=== PATIENT | female | born 1980 | race American Indian/Alaskan Native ===

== ENCOUNTER 2018-08-23 12:16 | Emergency (ER) | payer MEDICAID, OTHER ==
[2018-08-23] MEDS ORDERED: ZOFRAN IV ONE ×3 (12:57→14:17)
[2018-08-23] MEDS ORDERED: BENADRYL IV ONE ×2 (13:30→16:50)
[2018-08-23] MEDS ORDERED: DILAUDID IV ONE ×2 (13:30→16:50)
[2018-08-23] MEDS ORDERED: PHENERGAN PR ONE (13:30)
[2018-08-23] MEDS ORDERED: PROTONIX IV ONE (13:31)
[2018-08-23 13:42] LABS: Albumin 3.8 g/dL (3.9-5); Basophils % (Auto) 0.5 % (0.0-1.8); Calcium 9.7 mg/dL (8.4-10.2); Eosinophils # (Auto) 0.1 K/mm3 (0.0-0.4); Eosinophils % (Auto) 1.2 % (0.0-4.3); Hematocrit 30.4 % (30.3-42.9); Hemoglobin 9.8 gm/dl (10.1-14.3); Lymphocytes # (Auto) 1.6 K/mm3 (1.2-5.4); Lymphocytes % (Auto) 19.9 % (13.4-35.0); Mean Corpuscular HGB Conc 32 % (30-34); Mean Corpuscular Volume 94 fl (79-97); Monocytes # (Auto) 0.6 K/mm3 (0.0-0.8); Monocytes % (Auto) 7.7 % (0.0-7.3); Platelet Count 425 K/mm3 (140-440); Red Blood Count 3.25 M/mm3 (3.65-5.03); Red Cell Distribution Width 17.2 % (13.2-15.2)
--- NOTE | 2018-08-23 14:44 | Emergency Department Report ---
ED N/V/D HPI - General Chief complaint: Nausea/Vomiting/Diarrhea Stated complaint: N/V Time Seen by Provider: 08/23/18 12:53 Source: patient, EMS, old records reviewed Mode of arrival: Stretcher Limitations: No Limitations - History of Present Illness Initial comments: 37-year-old female with a past medical history diabetes, cholecystectomy, gastroparesis, hypertension, end-stage dialysis Monday, , and Monday, anemia, CVA with left-sided deficit presents to the Hospital complaining of gastroparesis. Patient has had persistent nausea, vomiting, and by mouth intolerance today. Since June has had frequent and recurrent admissions for the same. Patient recently admitted and discharged on . She is taking Zofran at home without improvement. Last dialysis was on August 20. She was at dialysis today however, she was sent to the ER for evaluation due to persistent nausea and vomiting. Patient complains of upper abdominal pain and pruritus to back. Bridge Teacher: Dr. Neda Ramos - Related Data Previous Rx's Medication Instructions Recorded Last Taken Type traMADol [Ultram 50 MG tab] 50 mg PO Q6H PRN #20 tablet 07/30/18 Unknown Rx Apixaban [Eliquis] 2.5 mg PO Q12HR #60 tablet 08/04/18 Unknown Rx Aspirin [Aspirin BABY CHEW TAB] 81 mg PO QDAY #30 tab.chew 08/04/18 Unknown Rx AtorvaSTATin [Lipitor] 40 mg PO QHS #30 tablet 08/04/18 Unknown Rx Labetalol [Normodyne TAB] 300 mg PO TID #90 tablet 08/04/18 Unknown Rx Pantoprazole [Protonix TAB] 40 mg PO BID #60 tablet 08/04/18 Unknown Rx amLODIPine [Norvasc] 10 mg PO DAILY #30 tablet 08/04/18 Unknown Rx cloNIDine [Catapres] 0.2 mg PO TID #90 tablet 08/04/18 Unknown Rx hydrALAZINE [Apresoline TAB] 50 mg PO Q8HR #90 tablet 08/04/18 Unknown Rx Ondansetron [Zofran ODT TAB] 4 mg PO Q8HR #20 tab.rapdis 08/07/18 Unknown Rx HYDROcodone/APAP 5-325 [[place] 1 - 2 each PO Q6HR PRN #14 tablet 08/08/18 Unknown Rx 5-325 mg TAB] Promethazine [Phenergan SUPPOS] 25 mg MS Q6HR PRN #10 supp.rect 08/08/18 Unknown Rx Promethazine [Phenergan TAB] 25 mg PO Q6HR PRN #20 tab 08/08/18 Unknown Rx Promethazine [Phenergan] 25 mg MS Q6HR PRN #30 supp.rect 08/23/18 Unknown Rx Allergies Allergy/AdvReac Type Severity Reaction Status Date / Time Fish Containing Products Allergy Rash Verified 07/10/18 17:56 metformin Allergy Hives Verified 10/25/16 01:38 metoclopramide HCl Allergy Hives Verified 10/25/16 01:38 [From Reglan] prochlorperazine Allergy Hives Verified 10/25/16 01:38 [From Compazine] prochlorperazine edisylate Allergy Hives Verified 10/25/16 01:38 [From Compazine] prochlorperazine maleate Allergy Hives Verified 10/25/16 01:38 [From Compazine] shellfish Allergy Swelling Uncoded 07/30/18 12:26 ED Review of Systems ROS: Stated complaint: N/V Other details as noted in HPI Comment: All other systems reviewed and negative ED Past Medical Hx - Past Medical History Hx Hypertension: Yes Hx CVA: Yes (multiple- L sided deficits, 12 CVA) Hx Congestive Heart Failure: No Hx Diabetes: Yes Hx Renal Disease: Yes (ESRD, HD -) Hx Sickle Cell Disease: No Hx Asthma: No Hx COPD: No Hx Dementia: No Hx HIV: No Additional medical history: anemia - Surgical History Hx Pacemaker: Yes (gastric) Hx Cholecystectomy: Yes Additional Surgical History: catheter placement for Hemo),bilayeral eye sugery(cataract), av fistula, gastric pacemaker for gastroparesis - Social History Smoking Status: Never Smoker Substance Use Type: None - Medications Home Medications: Home Medications Medication Instructions Recorded Confirmed Last Taken Type traMADol [Ultram 50 MG tab] 50 mg PO Q6H PRN #20 tablet 07/30/18 08/14/18 Unknown Rx Apixaban [Eliquis] 2.5 mg PO Q12HR #60 tablet 08/04/18 08/14/18 Unknown Rx Aspirin [Aspirin BABY CHEW TAB] 81 mg PO QDAY #30 tab.chew 08/04/18 08/14/18 Unknown Rx AtorvaSTATin [Lipitor] 40 mg PO QHS #30 tablet 08/04/18 08/14/18 Unknown Rx Labetalol [Normodyne TAB] 300 mg PO TID #90 tablet 08/04/18 08/14/18 Unknown Rx Pantoprazole [Protonix TAB] 40 mg PO BID #60 tablet 08/04/18 08/14/18 Unknown Rx amLODIPine [Norvasc] 10 mg PO DAILY #30 tablet 08/04/18 08/14/18 Unknown Rx cloNIDine [Catapres] 0.2 mg PO TID #90 tablet 08/04/18 08/14/18 Unknown Rx hydrALAZINE [Apresoline TAB] 50 mg PO Q8HR #90 tablet 08/04/18 08/14/18 Unknown Rx Ondansetron [Zofran ODT TAB] 4 mg PO Q8HR #20 tab.rapdis 08/07/18 08/14/18 Unknown Rx HYDROcodone/APAP 5-325 [[place] 1 - 2 each PO Q6HR PRN #14 tablet 08/08/18 08/14/18 Unknown Rx 5-325 mg TAB] Promethazine [Phenergan SUPPOS] 25 mg MS Q6HR PRN #10 supp.rect 08/08/18 08/14/18 Unknown Rx Promethazine [Phenergan TAB] 25 mg PO Q6HR PRN #20 tab 08/08/18 08/14/18 Unknown Rx Promethazine [Phenergan] 25 mg MS Q6HR PRN #30 supp.rect 08/23/18 Unknown Rx ED Physical Exam - General Limitations: No Limitations - Other Other exam information: General: No limitations, patient is alert in no acute distress Head exam: Atraumatic, normocephalic Eyes exam: Normal appearance, pupils equal reactive to light, extraocular movements intact ENT: Moist mucous membrane, normal oropharynx Neck exam: Normal inspection, full range of motion, no meningismus nontender Respiratory exam: Clear to auscultation bilateral, no wheezes, rales, crackles Cardiovascular: Normal rate and rhythm, normal heart sounds Abdomen: Soft, nondistended, epigastric and left upper quadrant tenderness. Extremity: Full range of motion normal inspection no deformity Back: Normal Inspection, full range of motion, no tenderness Neurologic: Alert, oriented x3, left-sided paralysis Psychiatric: normal affect, normal mood Skin: Warm, dry, intact ED Course Vital Signs 08/23/18 08/23/18 08/23/18 12:52 14:22 15:10 Temperature 98.4 F Pulse Rate 95 H Respiratory 16 18 18 Rate Blood Pressure 174/118 O2 Sat by Pulse 100 100 Oximetry 08/23/18 08/23/18 15:45 17:04 Temperature Pulse Rate 100 H Respiratory 18 Rate Blood Pressure 185/102 O2 Sat by Pulse Oximetry ED Medical Decision Making - Lab Data Result diagrams: 08/23/18 13:20 08/23/18 13:20 Lab Results 08/23/18 08/23/18 08/23/18 Range/Units 13:20 13:20 13:20 WBC 7.9 (4.5-11.0) K/mm3 RBC 3.25 L (3.65-5.03) M/mm3 Hgb 9.8 L (10.1-14.3) gm/dl Hct 30.4 (30.3-42.9) % MCV 94 (79-97) fl MCH 30 (28-32) pg MCHC 32 (30-34) % RDW 17.2 H (13.2-15.2) % Plt Count 425 (140-440) K/mm3 Lymph % (Auto) 19.9 (13.4-35.0) % [place] % (Auto) 7.7 H (0.0-7.3) % Eos % (Auto) 1.2 (0.0-4.3) % Baso % (Auto) 0.5 (0.0-1.8) % Lymph # 1.6 (1.2-5.4) K/mm3 [place] # 0.6 (0.0-0.8) K/mm3 Eos # 0.1 (0.0-0.4) K/mm3 Baso # 0.0 (0.0-0.1) K/mm3 Seg Neutrophils % 70.7 H (40.0-70.0) % Seg Neutrophils # 5.6 (1.8-7.7) K/mm3 Sodium 140 (137-145) mmol/L Potassium 3.3 L (3.6-5.0) mmol/L Chloride 95.3 L (98-107) mmol/L Carbon Dioxide 29 (22-30) mmol/L Anion Gap 19 mmol/L BUN 34 H (7-17) mg/dL Creatinine 6.1 H (0.7-1.2) mg/dL Estimated GFR 9 ml/min BUN/Creatinine Ratio 6 % Glucose 128 H (65-100) mg/dL Calcium 9.7 (8.4-10.2) mg/dL Total Bilirubin 0.50 (0.1-1.2) mg/dL AST 9 (5-40) units/L ALT 6 L (7-56) units/L Alkaline Phosphatase 91 (35-129) units/L Total Protein 7.5 (6.3-8.2) g/dL Albumin 3.8 L (3.9-5) g/dL Albumin/Globulin Ratio 1.0 % Lipase 13 (13-60) units/L HCG, Qual Negative (Negative) - Radiology Data Radiology results: report reviewed CT ABDOMEN PELVIS WITHOUT CONTRAST: HISTORY: Abdominal pain, nausea and vomiting. COMPARISON: 08/02/18. TECHNIQUE: Helical CT in 1.25mm intervals without IV contrast. Sagittal and coronal reconstructions. FINDINGS: Lung bases: Borderline heart size. The visualized lung bases are adequately aerated. Liver: Normal. Biliary system: Cholecystectomy. Pancreas: Normal. Spleen: Normal. Kidneys/ureters/bladder: Normal. Adrenal glands: Normal. Aorta: Mild scattered calcifications. No aneurysm. Intestines: Within normal limits given oral contrast was administered. No evidence for bowel obstruction. Appendix: Not identified. No inflammatory changes in the right lower quadrant. Pelvic viscera: Normal. Ascites: None. Adenopathy: None. Musculoskeletal: Intact. IMPRESSION: No acute process is identified in the abdomen or pelvis. No significant change since 08/02/18. - Medical Decision Making At the ED treatment patient no longer vomiting. There aren't any signs of volume overload or hyperkalemia to that would require admission for emergent dialysis. Patient has Percocet at home. She will be instructed to continue Zofran and then again will be prescribed. Patient given clonidine prior to discharge for hypertension - Differential Diagnosis gastritis, pancreatitis, gastroparesis Critical Care Time: No Critical care attestation.: If time is entered above; I have spent that time in minutes in the direct care of this critically ill patient, excluding procedure time. ED Disposition Clinical Impression: Diabetic gastroparesis, HTN (hypertension), ESRD on dialysis Disposition: DC-01 TO HOME OR SELFCARE Is pt being admited?: No Does the pt Need Aspirin: No Condition: Stable Instructions: Acute Nausea and Vomiting (ED), Abdominal Pain (ED), End-Stage Kidney Disease (ED) Additional Instructions: Take the medication as prescribed. Continue Zofran as well as Phenergan as needed for nausea and vomiting. Follow up with your doctor. Return if symptoms worsen as indicated by your discharge instructions. Call your dialysis center in the morning to see if they can reschedule your dialysis for tomorrow. Prescriptions: Promethazine [Phenergan] 25 mg MS Q6HR PRN #30 supp.rect PRN Reason: Nausea And Vomiting Referrals: PRIMARY CARE, [Primary Care Provider] - 2-3 Days Time of Disposition: 17:47
[2018-08-23] MEDS ORDERED: NORMODYNE IV ONE ×2 (14:48→17:18)
--- NOTE | 2018-08-23 15:32 | Cat Scan Report ---
CT ABDOMEN PELVIS WITHOUT CONTRAST: HISTORY: Abdominal pain, nausea and vomiting. COMPARISON: 08/02/18. TECHNIQUE: Helical CT in 1.25mm intervals without IV contrast. Sagittal and coronal reconstructions. FINDINGS: Lung bases: Borderline heart size. The visualized lung bases are adequately aerated. Liver: Normal. Biliary system: Cholecystectomy. Pancreas: Normal. Spleen: Normal. Kidneys/ureters/bladder: Normal. Adrenal glands: Normal. Aorta: Mild scattered calcifications. No aneurysm. Intestines: Within normal limits given oral contrast was administered. No evidence for bowel obstruction. Appendix: Not identified. No inflammatory changes in the right lower quadrant. Pelvic viscera: Normal. Ascites: None. Adenopathy: None. Musculoskeletal: Intact. IMPRESSION: No acute process is identified in the abdomen or pelvis. No significant change since 08/02/18.
[2018-08-23] MEDS ORDERED: CATAPRES PO ONE (17:19)
[2018-08-23] MEDS ORDERED: FLUSH HEPARIN IV ONE ×2 (17:32→18:51)
[2018-08-23 18:10] VITALS: BP 176/104
== END 2018-08-23 18:12 | disposition home or self-care (01) ==
LOC: ED 12:16
DX: E11.43 Type 2 diabetes mellitus with diabetic autonomic (poly)neuropathy (principal); K31.84 Gastroparesis; E11.22 Type 2 diabetes mellitus with diabetic chronic kidney disease; I12.0 Hypertensive chronic kidney disease with stage 5 chronic kidney disease or end stage renal disease; N18.6 End stage renal disease; Z99.2 Dependence on renal dialysis
CPT/HCPCS: 36415; 74176; 80053; 83690; 84703; 85025; 96374; 96375; 96376; 99284; C9113; J1170; J1200; J1642; J2405

== ENCOUNTER 2018-08-25 12:53 | Inpatient (IN) | payer MEDICARE ==
[2018-08-25] MEDS ORDERED: APRESOLINE IV ONE (14:55)
[2018-08-25] MEDS ORDERED: TYLENOL ONE (15:34)
[2018-08-25] MEDS ORDERED: TYLENOL PO ONE (15:44)
--- NOTE | 2018-08-25 15:44 | XRay Report ---
FINAL REPORT EXAM: XR CHEST 1V AP HISTORY: htn esrd TECHNIQUE: Frontal portable examination of the chest patient did not take in a deep breath/best image possible/supine/ap G08/25/2018 PRIORS: 08/07/2018 FINDINGS: A right venous catheter remains in place with distal tip near the cavoatrial junction region, project ed over the region of the right atrium. Limited examination due to prominent soft tissue attenuation. The cardiac silhouette size is slightly enlarged without evidence of vascular congestion or pulmonary edema. There is no pulmonary consolidation, pleural effusion, or pneumothorax. The regional skeleton is without acute pathology. IMPRESSION: No acute pulmonary disease in the visualized chest Slight cardiomegaly
[2018-08-25] MEDS ORDERED: PERCOCET 5/325 PO ONE (16:30)
--- NOTE | 2018-08-25 16:34 | Emergency Department Report ---
ED General Adult HPI - General Chief complaint: Extremity Problem,Nontraumatic Stated complaint: HBP Time Seen by Provider: 08/25/18 14:43 Source: EMS (ems notes not available at time of chart dictation), RN notes reviewed, old records reviewed Mode of arrival: Stretcher Limitations: Physical Limitation - History of Present Illness Initial comments: This is a 37-year-old female. Patient has a past medical history of type 2 diabetes, gastroparesis with gastric pacemaker, hypertension, reported stroke 12 with residual left-sided deficits, end-stage renal disease, on hemodialysis. Her financial health counselor is Dr. Ramos. She typically gets dialysis Monday, , Monday. She reports her last dialysis session was this past Monday. She is sent today by her dialysis clinic for evaluation of elevated blood pressure. She is given clonidine. Patient reports compliance with her outpatient medications. In addition, patient was sent to the ER for evaluation of clotted access in her right upper extremity. No bruit or thrill was noted. Patient complains of chronic body pain. She complains of chronic back pain. -: Gradual Location: right, upper extremity Severity scale (0 -10): 8 Consistency: constant Improves with: none Worsens with: none Associated Symptoms: loss of appetite, malaise, other (admits to chronic bilateral lower extremity swelling). denies: confusion, chest pain, cough, diaphoresis, fever/chills, headaches, nausea/vomiting, rash, seizure, shortness of breath, syncope, weakness - Related Data Previous Rx's Medication Instructions Recorded Last Taken Type traMADol [Ultram 50 MG tab] 50 mg PO Q6H PRN #20 tablet 07/30/18 Unknown Rx Apixaban [Eliquis] 2.5 mg PO Q12HR #60 tablet 08/04/18 Unknown Rx Aspirin [Aspirin BABY CHEW TAB] 81 mg PO QDAY #30 tab.chew 08/04/18 Unknown Rx AtorvaSTATin [Lipitor] 40 mg PO QHS #30 tablet 08/04/18 Unknown Rx Labetalol [Normodyne TAB] 300 mg PO TID #90 tablet 08/04/18 Unknown Rx Pantoprazole [Protonix TAB] 40 mg PO BID #60 tablet 08/04/18 Unknown Rx amLODIPine [Norvasc] 10 mg PO DAILY #30 tablet 08/04/18 Unknown Rx cloNIDine [Catapres] 0.2 mg PO TID #90 tablet 08/04/18 Unknown Rx hydrALAZINE [Apresoline TAB] 50 mg PO Q8HR #90 tablet 08/04/18 Unknown Rx Ondansetron [Zofran ODT TAB] 4 mg PO Q8HR #20 tab.rapdis 08/07/18 Unknown Rx HYDROcodone/APAP 5-325 [[place] 1 - 2 each PO Q6HR PRN #14 tablet 08/08/18 Unknown Rx 5-325 mg TAB] Promethazine [Phenergan SUPPOS] 25 mg IA Q6HR PRN #10 supp.rect 08/08/18 Unknown Rx Promethazine [Phenergan TAB] 25 mg PO Q6HR PRN #20 tab 08/08/18 Unknown Rx Promethazine [Phenergan] 25 mg IA Q6HR PRN #30 supp.rect 08/23/18 Unknown Rx Allergies Allergy/AdvReac Type Severity Reaction Status Date / Time Fish Containing Products Allergy Rash Verified 07/10/18 17:56 metformin Allergy Hives Verified 10/25/16 01:38 metoclopramide HCl Allergy Hives Verified 10/25/16 01:38 [From Reglan] prochlorperazine Allergy Hives Verified 10/25/16 01:38 [From Compazine] prochlorperazine edisylate Allergy Hives Verified 10/25/16 01:38 [From Compazine] prochlorperazine maleate Allergy Hives Verified 10/25/16 01:38 [From Compazine] shellfish Allergy Swelling Uncoded 07/30/18 12:26 ED Review of Systems ROS: Stated complaint: HBP Other details as noted in HPI Constitutional: denies: fever Eyes: denies: eye discharge ENT: denies: epistaxis Respiratory: denies: cough Cardiovascular: denies: chest pain Gastrointestinal: denies: nausea Musculoskeletal: back pain, arthralgia, myalgia Neurological: weakness ED Past Medical Hx - Past Medical History Previous Medical History?: Yes Hx Hypertension: Yes Hx CVA: Yes (multiple- L sided deficits, 12 CVA) Hx Congestive Heart Failure: No Hx Diabetes: Yes Hx Renal Disease: Yes (ESRD, HD --) Hx Sickle Cell Disease: No Hx Asthma: No Hx COPD: No Hx Dementia: No Hx HIV: No Additional medical history: anemia - Surgical History Hx Pacemaker: Yes (gastric) Hx Cholecystectomy: Yes Additional Surgical History: catheter placement for Hemo),bilayeral eye sugery(cataract), av fistula, gastric pacemaker for gastroparesis - Social History Smoking Status: Never Smoker Substance Use Type: None - Medications Home Medications: Home Medications Medication Instructions Recorded Confirmed Last Taken Type traMADol [Ultram 50 MG tab] 50 mg PO Q6H PRN #20 tablet 07/30/18 08/14/18 Unknown Rx Apixaban [Eliquis] 2.5 mg PO Q12HR #60 tablet 08/04/18 08/14/18 Unknown Rx Aspirin [Aspirin BABY CHEW TAB] 81 mg PO QDAY #30 tab.chew 08/04/18 08/14/18 Unknown Rx AtorvaSTATin [Lipitor] 40 mg PO QHS #30 tablet 08/04/18 08/14/18 Unknown Rx Labetalol [Normodyne TAB] 300 mg PO TID #90 tablet 08/04/18 08/14/18 Unknown Rx Pantoprazole [Protonix TAB] 40 mg PO BID #60 tablet 08/04/18 08/14/18 Unknown Rx amLODIPine [Norvasc] 10 mg PO DAILY #30 tablet 08/04/18 08/14/18 Unknown Rx cloNIDine [Catapres] 0.2 mg PO TID #90 tablet 08/04/18 08/14/18 Unknown Rx hydrALAZINE [Apresoline TAB] 50 mg PO Q8HR #90 tablet 08/04/18 08/14/18 Unknown Rx Ondansetron [Zofran ODT TAB] 4 mg PO Q8HR #20 tab.rapdis 08/07/18 08/14/18 Unknown Rx HYDROcodone/APAP 5-325 [[place] 1 - 2 each PO Q6HR PRN #14 tablet 08/08/18 1 10/15/17 Unknown Rx 5-325 mg TAB] Promethazine [Phenergan SUPPOS] 25 mg IA Q6HR PRN #10 supp.rect 08/08/18 08/14/18 Unknown Rx Promethazine [Phenergan TAB] 25 mg PO Q6HR PRN #20 tab 08/08/18 08/14/18 Unknown Rx Promethazine [Phenergan] 25 mg IA Q6HR PRN #30 supp.rect 08/23/18 Unknown Rx ED Physical Exam - General Limitations: Physical Limitation General appearance: alert, in no apparent distress, obese - Head Head exam: Present: atraumatic, normocephalic - Eye Eye exam: Present: normal appearance, EOMI. Absent: nystagmus - ENT ENT exam: Present: normal exam, normal orophraynx, mucous membranes moist, normal external ear exam - Neck Neck exam: Present: normal inspection, full ROM. Absent: tenderness, meningismus - Respiratory Respiratory exam: Present: normal lung sounds bilaterally. Absent: respiratory distress - Cardiovascular Cardiovascular Exam: Present: regular rate, normal rhythm, normal heart sounds. Absent: bradycardia, tachycardia, irregular rhythm, systolic murmur, diastolic murmur, rubs, gallop - GI/Abdominal GI/Abdominal exam: Present: soft. Absent: distended, tenderness, guarding, rebound, rigid, pulsatile mass - Extremities Exam Extremities exam: Present: normal inspection, pedal edema, other (right upper extremity dialysis axis noted, no redness, pus or streaking, no thrill or bruit noted. Lower extremity swelling, edema is noted.). Absent: calf tenderness - Back Exam Back exam: Present: normal inspection, full ROM, other (no rashes noted). Absent: tenderness, CVA tenderness (R), paraspinal tenderness, vertebral tenderness, rash noted - Neurological Exam Neurological exam: Present: alert, oriented X3, other (is no facial droop. The tongue is midline. Extraocular movements are intact. Moving 4 extremities spontaneously.) - Psychiatric Psychiatric exam: Present: normal affect, normal mood - Skin Skin exam: Present: warm, dry, intact, normal color. Absent: rash ED Course Vital Signs 08/25/18 08/25/18 08/25/18 13:05 13:37 15:12 Temperature 97.7 F Pulse Rate 82 83 72 Respiratory 16 18 16 Rate Blood Pressure Blood Pressure 203/109 188/104 201/104 [Left] O2 Sat by Pulse 95 98 99 Oximetry 08/25/18 08/25/18 15:47 16:30 Temperature Pulse Rate 78 82 Respiratory 16 Rate Blood Pressure 191/96 Blood Pressure 146/81 [Left] O2 Sat by Pulse 99 Oximetry - Reevaluation(s) Reevaluation #1: 08/25/18 16:34 Differential diagnosis, including but not limited to: Nonfunctioning right upper extremity fistula, hyperkalemia, dialysis noncompliance, medication noncompliance, chronic pain syndrome, narcotic dependence Assessment and plan: 37-year-old female with multiple renal-related issues. In terms of her apparently nonfunctioning right upper extremity fistula, we will obtain a vascular surgery consult. In terms of her hypertension and renal insufficiency, she will be given hydralazine, and screening laboratory studies will be obtained. The patient has chronic pain, and when I enter the room, she was sleeping com fortable, and in no acute distress. She does not endorse any significant new or different pain to this provider. She had no obvious rashes noted on her back or extremities. After my evaluation, she made multiple requests to nursing team for Benadryl as well as pain medication. It is my opinion that the patient does not have an acute medical condition at this time which requires IV or oral antihistamine, and it is therefore not medically indicated at this time. In addition, the patient has been known to have chronic pain. Based also my initial history and physical examination, it is my pain that the patient does not require intravenous narcotic analgesia for her chronic pain syndrome. She was offered acetaminophen which she declined. She is not a candidate for NSAIDs given her underlying renal insufficiency, and underlying GI medical comorbidities. Medic candidate for intravenous lidocaine given her renal insufficiency. With hypertension, not a candidate for intravenous ketamine. Patient is apparently on home Percocet, and will therefore be for that for her chronic pain. A vascular surgery consult is pending at this time. Reevaluation #2: 08/25/18 18:24 Discussed with vascular surgery, Dr. Pollack, who will see the patient in consultation. Discussed with nephrology, Dr. Burnham, who will see the patient in consultation. Discussed with Hospital physician, Dr. Turk, who accepts the patient to the medical service. ED Medical Decision Making - Lab Data Result diagrams: 08/25/18 Unknown 08/25/18 Unknown Vital Signs 08/25/18 08/25/18 08/25/18 13:05 13:37 15:12 Temperature 97.7 F Pulse Rate 82 83 72 Respiratory 16 18 16 Rate Blood Pressure Blood Pressure 203/109 188/104 201/104 [Left] O2 Sat by Pulse 95 98 99 Oximetry 08/25/18 08/25/18 15:47 16:30 Temperature Pulse Rate 78 82 Respiratory 16 Rate Blood Pressure 191/96 Blood Pressure 146/81 [Left] O2 Sat by Pulse 99 Oximetry - Radiology Data Radiology results: report reviewed, image reviewed FINDINGS: A right venous catheter remains in place with distal tip near the cavoatrial junction region, projected over the region of the right atrium. Limited examination due to prominent soft tissue attenuation. The cardiac silhouette size is slightly enlarged without evidence of vascular congestion or pulmonary edema. There is no pulmonary consolidation, pleural effusion, or pneumothorax. The regional skeleton is without acute pathology. IMPRESSION: No acute pulmonary disease in the visualized chest Slight cardiomegaly Critical care attestation.: If time is entered above; I have spent that time in minutes in the direct care of this critically ill patient, excluding procedure time. ED Disposition Clinical Impression: Hypertensive emergency, Missed dialysis Dialysis AV fistula malfunction Qualifiers: Encounter type: initial encounter Qualified Code(s): T82.590A - Other mechanical complication of surgically created arteriovenous fistula, initial encounter Disposition: -09 OP ADMIT IP TO THIS HOSP Is pt being admited?: Yes Condition: Good Instructions: Hypertension (ED) Referrals: PRIMARY CARE, [Primary Care Provider] - 3-5 Days
[2018-08-25 16:46] LABS: Calcium 8.7 mg/dL (8.4-10.2); INR 0.88 (0.87-1.13); Partial Thromboplastin Time 29.6 Sec. (24.2-36.6)
[2018-08-25 16:53] LABS: Hematocrit 28.6 % (30.3-42.9); Mean Corpuscular HGB Conc 32 % (30-34); Mean Corpuscular Volume 94 fl (79-97); Platelet Count 356 K/mm3 (140-440); Red Blood Count 3.04 M/mm3 (3.65-5.03); Red Cell Distribution Width 17.1 % (13.2-15.2)
--- NOTE | 2018-08-25 17:28 | Event Note ---
Date: 08/25/18 37 year old female with ESRD with thrombosed AV access who presents for thrombosed AV access. No SOB, no hyperkalemia. Made NPO after MN in case need to perform procedure tomorrow, but will expect to schedule for thrombectomy on monday.
[2018-08-25] MEDS ORDERED: PERCOCET 5/325 PO PRN (23:09)
[2018-08-25] MEDS ORDERED: TYLENOL PO PRN (23:09)
--- NOTE | 2018-08-25 23:09 | History and Physical Report ---
History of Present Illness Date of examination: 08/25/18 Date of admission: 08/25/18 Chief complaint: Clotted AV Access History of present illness: History of Present Illness: 37-year-old female with history of end-stage renal disease on dialysis, type 2 diabetes, gastroparesis, hypertension and apparent strokes for 12 times with residual left-sided deficits comes in for clotted access in her right upper extremity. No shortness of breath. Patient complains of chronic body pains. She was sent from the dialysis clinic for evaluation of blood pressure also. No fever or chills. Past Medical History Previous Medical History?: Yes Hx Hypertension: Yes Hx CVA: Yes (multiple- L sided deficits, 12 CVA) Hx Diabetes: Yes Hx Renal Disease: Yes (ESRD, HD -) Surg IK Hx Pacemaker: Yes (gastric) Hx Cholecystectomy: Yes Additional Surgical History: catheter placement for Hemo),bilayeral eye sugery(cataract), av fistula, gastric pacemaker for gastroparesis - Social History Smoking Status: Never Smoker Substance Use Type: None - Medications Home Medications: Home Medications Medication Instructions Recorded Confirmed Last Taken Type traMADol [Ultram 50 MG tab] 50 mg PO Q6H PRN #20 tablet 07/30/18 08/14/18 Unknown Rx Apixaban [Eliquis] 2.5 mg PO Q12HR #60 tablet 08/04/18 08/14/18 Unknown Rx Aspirin [Aspirin BABY CHEW TAB] 81 mg PO QDAY #30 tab.chew 08/04/18 08/14/18 Unknown Rx AtorvaSTATin [LipiThe RN and in different cars tor] 40 mg PO QHS #30 tablet 08/04/18 08/14/18 Unknown Rx Labetalol [Normodyne TAB] 300 mg PO TID #90 tablet 08/04/18 08/14/18 Unknown Rx Pantoprazole [Protonix TAB] 40 mg PO BID #60 tablet 08/04/18 08/14/18 Unknown Rx amLODIPine [Norvasc] 10 mg PO DAILY #30 tablet 08/04/18 08/14/18 Unknown Rx cloNIDine [Catapres] 0.2 mg PO TID #90 tablet 08/04/18 08/14/18 Unknown Rx hydrALAZINE [Apresoline TAB] 50 mg PO Q8HR #90 tablet 08/04/18 08/14/18 Unknown Rx Ondansetron [Zofran ODT TAB] 4 mg PO Q8HR #20 tab.rapdis 08/07/18 08/14/18 Unknown Rx HYDROcodone/APAP 5-325 [[place] 1 - 2 each PO Q6HR PRN #14 tablet 08/08/18 08/14/18 Unknown Rx 5-325 mg TAB] Promethazine [Phenergan SUPPOS] 25 mg CO Q6HR PRN #10 supp.rect 08/08/18 08/14/18 Unknown Rx Promethazine [Phenergan TAB] 25 mg PO Q6HR PRN #20 tab 08/08/18 08/14/18 Unknown Rx Promethazine [Phenergan] 25 mg CO Q6HR PRN #30 supp.rect 08/23/18 Unknown Rx Review of Systems ROS: Stated complaint: HBP Other details as noted in HPI Constitutional: denies: fever Eyes: denies: eye discharge ENT: denies: epistaxis Respiratory: denies: cough Cardiovascular: denies: chest pain Gastrointestinal: denies: nausea Musculoskeletal: back pain, arthralgia, myalgia Neurological: weakness several hours apart a good 37 year old female with ESRD with thrombosed AV access who presents for thrombosed AV access. No SOB, no hyperkalemia. Medications and Allergies Allergies Allergy/AdvReac Type Severity Reaction Status Date / Time Fish Containing Products Allergy Rash Verified 07/10/18 17:56 metformin Allergy Hives Verified 10/25/16 01:38 metoclopramide HCl Allergy Hives Verified 10/25/16 01:38 [From Reglan] prochlorperazine Allergy Hives Verified 10/25/16 01:38 [From Compazine] prochlorperazine edisylate Allergy Hives Verified 10/25/16 01:38 [From Compazine] prochlorperazine maleate Allergy Hives Verified 10/25/16 01:38 [From Compazine] shellfish Allergy Swelling Uncoded 07/30/18 12:26 Home Medications Medication Instructions Recorded Confirmed Last Taken Type traMADol [Ultram 50 MG tab] 50 mg PO Q6H PRN #20 tablet 07/30/18 08/14/18 Unknown Rx Apixaban [Eliquis] 2.5 mg PO Q12HR #60 tablet 08/04/18 08/14/18 Unknown Rx Aspirin [Aspirin BABY CHEW TAB] 81 mg PO QDAY #30 tab.chew 08/04/18 08/14/18 Unknown Rx AtorvaSTATin [Lipitor] 40 mg PO QHS #30 tablet 08/04/18 08/14/18 Unknown Rx Labetalol [Normodyne TAB] 300 mg PO TID #90 tablet 08/04/18 08/14/18 Unknown Rx Pantoprazole [Protonix TAB] 40 mg PO BID #60 tablet 08/04/18 08/14/18 Unknown Rx amLODIPine [Norvasc] 10 mg PO DAILY #30 tablet 08/04/18 08/14/18 Unknown Rx cloNIDine [Catapres] 0.2 mg PO TID #90 tablet 08/04/18 08/14/18 Unknown Rx hydrALAZINE [Apresoline TAB] 50 mg PO Q8HR #90 tablet 08/04/18 08/14/18 Unknown Rx Ondansetron [Zofran ODT TAB] 4 mg PO Q8HR #20 tab.rapdis 08/07/18 08/14/18 Unknown Rx HYDROcodone/APAP 5-325 [[place] 1 - 2 each PO Q6HR PRN #14 tablet 08/08/18 08/14/18 Unknown Rx 5-325 mg TAB] Promethazine [Phenergan SUPPOS] 25 mg CO Q6HR PRN #10 supp.rect 08/08/18 08/14/18 Unknown Rx Promethazine [Phenergan TAB] 25 mg PO Q6HR PRN #20 tab 08/08/18 08/14/18 Unknown Rx Promethazine [Phenergan] 25 mg CO Q6HR PRN #30 supp.rect 08/23/18 Unknown Rx Exam - Constitutional Vitals: Temp Pulse Resp BP Pulse Ox 97.7 F 95 H 16 127/74 98 08/25/18 13:05 08/25/18 20:20 08/25/18 20:20 08/25/18 20:20 08/25/18 20:20 General appearance: Present: no acute distress, well-nourished - EENT Eyes: Present: PERRL ENT: hearing intact, clear oral mucosa - Neck Neck: Present: supple, normal ROM - Respiratory Respiratory effort: normal Respiratory: bilateral: CTA - Cardiovascular Heart rate: 78 Rhythm: regular Heart Sounds: Present: S1 & S2. Absent: rub, click - Extremities Extremities: no ischemia, pulses intact, pulses symmetrical, No edema Extremity abnormal: other (Absent thrill RUE Fistula) Peripheral Pulses: within normal limits - Abdominal General gastrointestinal: Present: soft, non-tender, non-distended, normal bowel sounds Female genitourinary: Present: normal - Integumentary Integumentary: Present: clear, warm, dry - Musculoskeletal Musculoskeletal: gait normal, strength equal bilaterally - Psychiatric Psychiatric: appropriate mood/affect, intact judgment & insight - Neurologic Neurologic: CNII-XII intact, moves all extremities - Allied Health Allied health notes reviewed: nursing, case management Results - Labs CBC & Chem 7: 08/25/18 Unknown 08/25/18 Unknown Labs: Laboratory Last Values WBC 7.5 K/mm3 (4.5-11.0) 08/25/18 Unknown RBC 3.04 M/mm3 (3.65-5.03) L 08/25/18 Unknown Hgb 9.0 gm/dl (10.1-14.3) L 08/25/18 Unknown Hct 28.6 % (30.3-42.9) L 08/25/18 Unknown MCV 94 fl (79-97) 08/25/18 Unknown MCH 30 pg (28-32) 08/25/18 Unknown MCHC 32 % (30-34) 08/25/18 Unknown RDW 17.1 % (13.2-15.2) H 08/25/18 Unknown Plt Count 356 K/mm3 (140-440) 08/25/18 Unknown PT 12.3 Sec. (12.2-14.9) 08/25/18 Unknown INR 0.88 (0.87-1.13) 08/25/18 Unknown APTT 29.6 Sec. (24.2-36.6) 08/25/18 Unknown Sodium 139 mmol/L (137-145) 08/25/18 Unknown Potassium 3.9 mmol/L (3.6-5.0) 08/25/18 Unknown Chloride 98.6 mmol/L (98-107) 08/25/18 Unknown Carbon Dioxide 29 mmol/L (22-30) 08/25/18 Unknown Anion Gap 15 mmol/L 08/25/18 Unknown BUN 48 mg/dL (7-17) H 08/25/18 Unknown Creatinine 7.0 mg/dL (0.7-1.2) H 08/25/18 Unknown Estimated GFR 8 ml/min 08/25/18 Unknown BUN/Creatinine Ratio 7 % 08/25/18 Unknown Glucose 108 mg/dL (65-100) H 08/25/18 Unknown Calcium 8.7 mg/dL (8.4-10.2) 08/25/18 Unknown Magnesium 2.00 mg/dL (1.7-2.3) 08/25/18 Unknown - Imaging and Cardiology Chest x-ray: report reviewed (NAF) Assessment and Plan Advance Directives: Yes (Full code) VTE prophylaxis?: Chemical Plan of care discussed with patient/family: Yes - Patient Problems (1) Dialysis AV fistula malfunction Current Visit: Yes Status: Acute Qualifiers: Encounter type: initial encounter Qualified Code(s): T82.590A - Other mechanical complication of surgically created arteriovenous fistula, initial encounter Plan to address problem: Vascular surgery consulted (2) Hypertensive emergency Current Visit: Yes Status: Acute Plan to address problem: Cont antihypertensives (3) CVA (cerebral vascular accident) Current Visit: No Status: Chronic Qualifiers: CVA mechanism: thrombosis Precerebral and cerebral artery: middle cerebral artery Laterality of affected vessel: right Qualified Code(s): I63.311 - Cerebral infarction due to thrombosis of right middle cerebral artery Plan to address problem: Supportive care (4) Diabetic gastroparesis Current Visit: No Status: Chronic Plan to address problem: Patient with Gastric pacemaker (5) HTN (hypertension) Current Visit: No Status: Chronic Qualifiers: Hypertension type: essential hypertension Plan to address problem: Cont antihypertensives (6) On anticoagulant therapy Current Visit: No Status: Chronic Plan to address problem: [place] on hold for expected surgery in a day or 2 (7) Type 2 diabetes mellitus with diabetic chronic kidney disease Current Visit: No Status: Chronic Qualifiers: Chronic kidney disease stage: on chronic dialysis Plan to address problem: ADJUST MEDS (8) End stage renal disease on dialysis Current Visit: No Status: Chronic Plan to address problem: Cont HD (9) HLD (hyperlipidemia) Current Visit: Yes Status: Acute Qualifiers: Hyperlipidemia type: mixed hyperlipidemia Qualified Code(s): E78.2 - Mixed hyperlipidemia Plan to address problem: On Statins (10) DVT prophylaxis Current Visit: No Status: Acute Plan to address problem: Heparin 5000 Q12h
[2018-08-25] MEDS ORDERED: PHENERGAN PO PRN (23:15)
[2018-08-25] MEDS ORDERED: ULTRAM PO PRN (23:15)
[2018-08-25] MEDS ORDERED: PHENERGAN PR PRN (23:15)
[2018-08-26] MEDS ORDERED: DILAUDID ONE (00:45)
[2018-08-26] MEDS: DILAUDID IV PRN ×6 (00:58→20:57)
[2018-08-26 07:05] LABS: Basophils # (Auto) 0.1 K/mm3 (0.0-0.1); Basophils % (Auto) 0.6 % (0.0-1.8); Eosinophils # (Auto) 0.2 K/mm3 (0.0-0.4); Eosinophils % (Auto) 2.4 % (0.0-4.3); Hematocrit 29.3 % (30.3-42.9); Hemoglobin 9.1 gm/dl (10.1-14.3); Lymphocytes % (Auto) 23.3 % (13.4-35.0); Mean Corpuscular HGB Conc 31 % (30-34); Mean Corpuscular Volume 94 fl (79-97); Monocytes # (Auto) 0.6 K/mm3 (0.0-0.8); Monocytes % (Auto) 6.8 % (0.0-7.3); Platelet Count 391 K/mm3 (140-440); Red Blood Count 3.11 M/mm3 (3.65-5.03); Red Cell Distribution Width 17.1 % (13.2-15.2)
[2018-08-26] MEDS: APRESOLINE PO SCH ×3 (07:14→21:40)
[2018-08-26 07:16] LABS: Albumin 3.4 g/dL (3.9-5); Calcium 9.2 mg/dL (8.4-10.2)
[2018-08-26] MEDS: HEPARIN SUB-Q SCH ×3 (09:52→21:39)
[2018-08-26] MEDS: SODIUM CHLORIDE FLUSH SYRINGE 10 ML IV SCH ×3 (09:53→21:41)
[2018-08-26] MEDS: ZOFRAN ODT PO SCH ×3 (09:53→21:41)
[2018-08-26] MEDS: HumaLOG SUB-Q SCH ×4 (09:53→21:39)
[2018-08-26] MEDS: NORVASC PO SCH (09:55)
[2018-08-26] MEDS: CATAPRES PO SCH ×3 (09:56→20:49)
[2018-08-26] MEDS: NORMODYNE PO SCH ×3 (09:56→20:49)
[2018-08-26] MEDS: PROTONIX PO SCH ×2 (10:09→21:41)
--- NOTE | 2018-08-26 11:13 | Consultation ---
History of Present Illness - Reason for Consult Consult date: 08/26/18 end stage renal disease Requesting physician: SURINDER ZALDIVAR - History of Present Illness Patient has a past medical history of type 2 diabetes, gastroparesis with gastric pacemaker, hypertension, reported stroke 12 with residual left-sided deficits, end-stage renal disease, on hemodialysis. Her creosoting engineer is Dr. Ramos. She typically gets dialysis Monday, , Monday. She reports her last dialysis session was this past Monday. She was sent yesterday by her dialysis clinic for evaluation of clotted dialysis access and elevated blood pressure. Patient reports compliance with her outpatient medications. In addition, patient was sent to the ER for evaluation of clotted access in her right upper extremity. No bruit or thrill was noted. Patient complains of chronic body pain. She complains of chronic back pain. Past History Past Medical History: dialysis, hypertension Past Surgical History: Other (history of creation of AV graft) Social history: no significant social history Family history: no significant family history Medications and Allergies Allergies Allergy/AdvReac Type Severity Reaction Status Date / Time Fish Containing Products Allergy Rash Verified 07/10/18 17:56 metformin Allergy Hives Verified 10/25/16 01:38 metoclopramide HCl Allergy Hives Verified 10/25/16 01:38 [From Reglan] prochlorperazine Allergy Hives Verified 10/25/16 01:38 [From Compazine] prochlorperazine edisylate Allergy Hives Verified 10/25/16 01:38 [From Compazine] prochlorperazine maleate Allergy Hives Verified 10/25/16 01:38 [From Compazine] shellfish Allergy Swelling Uncoded 07/30/18 12:26 Home Medications Medication Instructions Recorded Confirmed Last Taken Type traMADol [Ultram 50 MG tab] 50 mg PO Q6H PRN #20 tablet 07/30/18 08/14/18 Unknown Rx Apixaban [Eliquis] 2.5 mg PO Q12HR #60 tablet 08/04/18 08/14/18 Unknown Rx Aspirin [Aspirin BABY CHEW TAB] 81 mg PO QDAY #30 tab.chew 08/04/18 08/14/18 Unknown Rx AtorvaSTATin [Lipitor] 40 mg PO QHS #30 tablet 08/04/18 08/14/18 Unknown Rx Labetalol [Normodyne TAB] 300 mg PO TID #90 tablet 08/04/18 08/14/18 Unknown Rx Pantoprazole [Protonix TAB] 40 mg PO BID #60 tablet 08/04/18 08/14/18 Unknown Rx amLODIPine [Norvasc] 10 mg PO DAILY #30 tablet 08/04/18 08/14/18 Unknown Rx cloNIDine [Catapres] 0.2 mg PO TID #90 tablet 08/04/18 08/14/18 Unknown Rx hydrALAZINE [Apresoline TAB] 50 mg PO Q8HR #90 tablet 08/04/18 08/14/18 Unknown Rx Ondansetron [Zofran ODT TAB] 4 mg PO Q8HR #20 tab.rapdis 08/07/18 08/14/18 Unknown Rx HYDROcodone/APAP 5-325 [[place] 1 - 2 each PO Q6HR PRN #14 tablet 08/08/18 08/14/18 Unknown Rx 5-325 mg TAB] Promethazine [Phenergan SUPPOS] 25 mg MI Q6HR PRN #10 supp.rect 08/08/18 08/14/18 Unknown Rx Promethazine [Phenergan TAB] 25 mg PO Q6HR PRN #20 tab 08/08/18 08/14/18 Unknown Rx Promethazine [Phenergan] 25 mg MI Q6HR PRN #30 supp.rect 08/23/18 Unknown Rx Active Meds: Active Medications Acetaminophen (Tylenol) 650 mg PO Q4H PRN PRN Reason: Pain MILD(1-3)/Fever >100.5/CHAVES Amlodipine Besylate (Norvasc) 10 mg PO DAILY [facility] Last Admin: 08/26/18 09:55 Dose: 10 mg Documented by: Clonidine HCl (Catapres) 0.2 mg PO TID [facility] Last Admin: 08/26/18 09:56 Dose: 0.2 mg Documented by: Heparin Sodium (Porcine) (Heparin) 5,000 unit SUB-Q Q12HR [facility] Last Admin: 08/26/18 10:09 Dose: Not Given Documented by: Hydralazine HCl (Apresoline) 50 mg PO Q8HR [facility] Last Admin: 08/26/18 07:14 Dose: 50 mg Documented by: Hydromorphone HCl (Dilaudid) 0.25 mg IV Q3H PRN PRN Reason: Pain, Moderate (4-6) Last Admin: 08/26/18 10:09 Dose: 0.25 mg Documented by: Insulin Human Lispro (Humalog) 0 unit SUB-Q ACHS [facility]; Protocol Last Admin: 08/26/18 09:53 Dose: Not Given Documented by: Labetalol HCl (Normodyne) 300 mg PO TID [facility] Last Admin: 08/26/18 09:56 Dose: 300 mg Documented by: Ondansetron HCl (Zofran) 4 mg IV Q8H PRN PRN Reason: Nausea And Vomiting Ondansetron HCl (Zofran Odt) 4 mg PO Q8HR [facility] Last Admin: 08/26/18 09:53 Dose: Not Given Documented by: Oxycodone/Acetaminophen (Percocet 5/325) 1 tab PO Q6H PRN PRN Reason: Pain, Moderate (4-6) Pantoprazole Sodium (Protonix) 40 mg PO BID [facility] Last Admin: 08/26/18 10:09 Dose: Not Given Documented by: Promethazine HCl (Phenergan) 25 mg MI Q6HR PRN PRN Reason: Vomiting Promethazine HCl (Phenergan) 25 mg PO Q6HR PRN PRN Reason: Nausea Sodium Chloride (Sodium Chloride Flush Syringe 10 Ml) 10 ml IV BID [facility] Last Admin: 08/26/18 09:56 Dose: 10 ml Documented by: Sodium Chloride (Sodium Chloride Flush Syringe 10 Ml) 10 ml IV PRN PRN PRN Reason: LINE FLUSH Tramadol HCl (Ultram) 50 mg PO Q6H PRN PRN Reason: Pain, Moderate (4-6) Review of Systems All systems: negative Exam - Vital Signs Vital signs: Vital Signs Temp Pulse Resp BP Pulse Ox 97.7 F 82 16 203/109 95 08/25/18 13:05 08/25/18 13:05 08/25/18 13:05 08/25/18 13:05 08/25/18 13:05 - General Appearance General appearance: well-developed, well-nourished, appears stated age EENT: PERRL, mucous membranes moist Neck: Present: neck supple, trachea midline. Absent: JVD/HJR, Masses Respiratory: Clear to Ascultation Heart: regular, normal heart rate Gastrointestinal: Present: normal, normoactive bowel sounds Integumentary: no rash, other (AV graft right upper extremity. No bruit or thrill) Results - Lab Results 08/26/18 06:26 08/26/18 06:26 Most recent lab results Calcium 9.2 mg/dL (8.4-10.2) 08/26/18 06:26 Magnesium 2.00 mg/dL (1.7-2.3) 08/25/18 Unknown Assessment and Plan impression * end-stage renal disease * Clotted AV graft * Uncontrolled hypertension * Anemia secondary to ESRD Recommendations * No urgent indication for dialysis today * Vascular surgery consultation appreciated * Plan for dialysis tomorrow after access * Adjust diet and meds for ESRD state * Procrit with dialysis * Binders with meals * Avoid nephrotoxins * Thank you very much for the consultation. Shall follow along with you
--- NOTE | 2018-08-26 12:36 | Consultation ---
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 No shortness of breath. Patient complains of chronic body pains. She was sent from the dialysis clinic for evaluation of blood pressure. No fever or chills. The patient reports she had her right upper extremity AV access placed one year ago and it is a forearm loop graft. She had this placed because she had a DVT in her left upper extremity preventing left upper extremity dialysis access placement. This is the first time she had a thrombosis of the AV access. Past Medical History Previous Medical History?: Yes Hx Hypertension: Yes Hx CVA: Yes (multiple- L sided deficits, 12 CVA) Hx Diabetes: Yes Hx Renal Disease: Yes (ESRD, HD ) Surg IK Hx Pacemaker: Yes (gastric) Hx Cholecystectomy: Yes Additional Surgical History: catheter placement for Hemo),bilayeral eye sugery(cataract), av fistula, gastric pacemaker for gastroparesis - Social History Smoking Status: Never Smoker Substance Use Type: None Medications and Allergies Allergies Allergy/AdvReac Type Severity Reaction Status Date / Time Fish Containing Products Allergy Rash Verified 07/10/18 17:56 metformin Allergy Hives Verified 10/25/16 01:38 metoclopramide HCl Allergy Hives Verified 10/25/16 01:38 [From Reglan] prochlorperazine Allergy Hives Verified 10/25/16 01:38 [From Compazine] prochlorperazine edisylate Allergy Hives Verified 10/25/16 01:38 [From Compazine] prochlorperazine maleate Allergy Hives Verified 10/25/16 01:38 [From Compazine] shellfish Allergy Swelling Uncoded 07/30/18 12:26 Home Medications Medication Instructions Recorded Confirmed Last Taken Type traMADol [Ultram 50 MG tab] 50 mg PO Q6H PRN #20 tablet 07/30/18 08/14/18 Unknown Rx Apixaban [Eliquis] 2.5 mg PO Q12HR #60 tablet 08/04/18 08/14/18 Unknown Rx Aspirin [Aspirin BABY CHEW TAB] 81 mg PO QDAY #30 tab.chew 08/04/18 08/14/18 Unknown Rx AtorvaSTATin [Lipitor] 40 mg PO QHS #30 tablet 08/04/18 08/14/18 Unknown Rx Labetalol [Normodyne TAB] 300 mg PO TID #90 tablet 08/04/18 08/14/18 Unknown Rx Pantoprazole [Protonix TAB] 40 mg PO BID #60 tablet 08/04/18 08/14/18 Unknown Rx amLODIPine [Norvasc] 10 mg PO DAILY #30 tablet 08/04/18 08/14/18 Unknown Rx cloNIDine [Catapres] 0.2 mg PO TID #90 tablet 08/04/18 08/14/18 Unknown Rx hydrALAZINE [Apresoline TAB] 50 mg PO Q8HR #90 tablet 08/04/18 08/14/18 Unknown Rx Ondansetron [Zofran ODT TAB] 4 mg PO Q8HR #20 tab.rapdis 08/07/18 08/14/18 Unknown Rx HYDROcodone/APAP 5-325 [[place] 1 - 2 each PO Q6HR PRN #14 tablet 08/08/18 08/14/18 Unknown Rx 5-325 mg TAB] Promethazine [Phenergan SUPPOS] 25 mg [place] Q6HR PRN #10 supp.rect 08/08/18 08/14/18 Unknown Rx Promethazine [Phenergan TAB] 25 mg PO Q6HR PRN #20 tab 08/08/18 08/14/18 Unknown Rx Promethazine [Phenergan] 25 mg OR Q6HR PRN #30 supp.rect 08/23/18 Unknown Rx Active Meds: Active Medications Acetaminophen (Tylenol) 650 mg PO Q4H PRN PRN Reason: Pain MILD(1-3)/Fever >100.5/CHAVES Amlodipine Besylate (Norvasc) 10 mg PO DAILY [facility] Last Admin: 08/26/18 09:55 Dose: 10 mg Documented by: Clonidine HCl (Catapres) 0.2 mg PO TID [facility] Last Admin: 08/26/18 09:56 Dose: 0.2 mg Documented by: Heparin Sodium (Porcine) (Heparin) 5,000 unit SUB-Q Q12HR [facility] Last Admin: 08/26/18 10:09 Dose: Not Given Documented by: Hydralazine HCl (Apresoline) 50 mg PO Q8HR [facility] Last Admin: 08/26/18 07:14 Dose: 50 mg Documented by: Hydromorphone HCl (Dilaudid) 0.25 mg IV Q3H PRN PRN Reason: Pain, Moderate (4-6) Last Admin: 08/26/18 10:09 Dose: 0.25 mg Documented by: Insulin Human Lispro (Humalog) 0 unit SUB-Q ACHS [facility]; Protocol Last Admin: 08/26/18 12:30 Dose: Not Given Documented by: Labetalol HCl (Normodyne) 300 mg PO TID [facility] Last Admin: 08/26/18 09:56 Dose: 300 mg Documented by: Ondansetron HCl (Zofran) 4 mg IV Q8H PRN PRN Reason: Nausea And Vomiting Ondansetron HCl (Zofran Odt) 4 mg PO Q8HR [facility] Last Admin: 08/26/18 09:53 Dose: Not Given Documented by: Oxycodone/Acetaminophen (Percocet 5/325) 1 tab PO Q6H PRN PRN Reason: Pain, Moderate (4-6) Pantoprazole Sodium (Protonix) 40 mg PO BID [facility] Last Admin: 08/26/18 10:09 Dose: Not Given Documented by: Promethazine HCl (Phenergan) 25 mg OR Q6HR PRN PRN Reason: Vomiting Promethazine HCl (Phenergan) 25 mg PO Q6HR PRN PRN Reason: Nausea Sodium Chloride (Sodium Chloride Flush Syringe 10 Ml) 10 ml IV BID [facility] Last Admin: 08/26/18 09:56 Dose: 10 ml Documented by: Sodium Chloride (Sodium Chloride Flush Syringe 10 Ml) 10 ml IV PRN PRN PRN Reason: LINE FLUSH Tramadol HCl (Ultram) 50 mg PO Q6H PRN PRN Reason: Pain, Moderate (4-6) Review of Systems All systems: negative (see HPI) Exam - Constitutional Vitals: Temp Pulse Resp BP Pulse Ox 97.9 F 83 18 154/83 92 08/26/18 12:02 08/26/18 12:02 08/26/18 12:02 08/26/18 12:02 08/26/18 12:02 General appearance: Present: no acute distress - EENT Eyes: Present: EOM intact ENT: hearing intact - Respiratory Respiratory effort: normal - Extremities Extremities: normal temperature, normal color, abnormal (palpable right radial and ulnar pulse with no thrill in the right upper extremity AV access) - Psychiatric Psychiatric: appropriate mood/affect, cooperative Results - Labs CBC & Chem 7: 08/26/18 06:26 08/26/18 06:26 Labs: Abnormal lab results 08/25/18 08/25/18 08/26/18 Range/Units Unknown Unknown 06:26 RBC 3.04 L 3.11 L (3.65-5.03) M/mm3 Hgb 9.0 L 9.1 L (10.1-14.3) gm/dl Hct 28.6 L 29.3 L (30.3-42.9) % RDW 17.1 H 17.1 H (13.2-15.2) % BUN 48 H (7-17) mg/dL Creatinine 7.0 H (0.7-1.2) mg/dL Glucose 108 H (65-100) mg/dL POC Glucose (70-105) Hemoglobin A1c (4-6) % ALT (7-56) units/L Albumin (3.9-5) g/dL 08/26/18 08/26/18 08/26/18 Range/Units 06:26 06:26 08:41 RBC (3.65-5.03) M/mm3 Hgb (10.1-14.3) gm/dl Hct (30.3-42.9) % RDW (13.2-15.2) % BUN 49 H (7-17) mg/dL Creatinine 7.9 H (0.7-1.2) mg/dL Glucose 122 H (65-100) mg/dL POC Glucose 126 H (70-105) Hemoglobin A1c 6.8 H (4-6) % ALT 6 L (7-56) units/L Albumin 3.4 L (3.9-5) g/dL 08/26/18 Range/Units 12:04 RBC (3.65-5.03) M/mm3 Hgb (10.1-14.3) gm/dl Hct (30.3-42.9) % RDW (13.2-15.2) % BUN (7-17) mg/dL Creatinine (0.7-1.2) mg/dL Glucose (65-100) mg/dL POC Glucose 118 H (70-105) Hemoglobin A1c (4-6) % ALT (7-56) units/L Albumin (3.9-5) g/dL Assessment and Plan 37-year-old female with right upper extremity thrombosed AV access and end-stage renal disease who presents for thrombosed right upper extremity AV access. Nothing by mouth after midnight. Plan for percutaneous thrombectomy tomorrow. If unsuccessful, may need PermCath and vein mapping study as she may be a candidate for a fistula given the forearm loop graft. If no adequate pain available, then she will require graft placement. This was discussed with patient. Risks, benefits, and alternatives discussed.
[2018-08-26] MEDS: ZOFRAN IV PRN (12:41)
[2018-08-26] MEDS ORDERED: NACL 0.9% 100 ML IV PRN (16:39)
[2018-08-26] MEDS ORDERED: BENADRYL IV PRN (16:48)
--- NOTE | 2018-08-26 19:12 | Progress Note ---
Assessment and Plan - Patient Problems (1) Dialysis AV fistula malfunction Current Visit: Yes Status: Acute Qualifiers: Encounter type: initial encounter Qualified Code(s): T82.590A - Other mechanical complication of surgically created arteriovenous fistula, initial encounter Plan to address problem: Vascular surgery consulted For Thrombectomy and possible vascath tomorrow (2) Hypertensive emergency Current Visit: Yes Status: Acute Plan to address problem: Cont antihypertensives (3) CVA (cerebral vascular accident) Current Visit: No Status: Chronic Qualifiers: CVA mechanism: thrombosis Precerebral and cerebral artery: middle cerebral artery Laterality of affected vessel: right Qualified Code(s): I63.311 - Ce rebral infarction due to thrombosis of right middle cerebral artery Plan to address problem: Supportive care (4) Diabetic gastroparesis Current Visit: No Status: Chronic Plan to address problem: Patient with Gastric pacemaker (5) HTN (hypertension) Current Visit: No Status: Chronic Qualifiers: Hypertension type: essential hypertension Plan to address problem: Cont antihypertensives (6) On anticoagulant therapy Current Visit: No Status: Chronic Plan to address problem: Eliwuis on hold for expected surgery in a day or 2 (7) Type 2 diabetes mellitus with diabetic chronic kidney disease Current Visit: No Status: Chronic Qualifiers: Chronic kidney disease stage: on chronic dialysis Plan to address problem: ADJUST MEDS (8) End stage renal disease on dialysis Current Visit: No Status: Chronic Plan to address problem: Cont HD (9) HLD (hyperlipidemia) Current Visit: Yes Status: Acute Qualifiers: Hyperlipidemia type: mixed hyperlipidemia Qualified Code(s): E78.2 - Mixed hyperlipidemia Plan to address problem: On Statins (10) DVT prophylaxis Current Visit: No Status: Acute Plan to address problem: Heparin 5000 Q12h Subjective Date of service: 08/26/18 Principal diagnosis: Clotted ROU Access Interval history: Doing well For Thrombectomy tomorrow IR consuylt and F/u appreciated Objective - Constitutional Vitals: Vital Signs - 12hr 08/26/18 08/26/18 08/26/18 07:14 09:55 12:02 Temperature 97.9 F Pulse Rate 78 86 83 Respiratory 18 Rate Blood Pressure 171/102 159/89 154/83 O2 Sat by Pulse 92 Oximetry 08/26/18 08/26/18 14:12 17:53 Temperature 98.2 F Pulse Rate 89 87 Respiratory 18 Rate Blood Pressure 167/95 123/70 O2 Sat by Pulse 95 Oximetry General appearance: Present: no acute distress, well-nourished - EENT Eyes: PERRL, EOM intact ENT: hearing intact, clear oral mucosa Ears: bilateral: normal - Neck Neck: supple, normal ROM - Respiratory Respiratory effort: normal Respiratory: bilateral: CTA - Breasts Breasts: normal - Cardiovascular Rhythm: regular Heart Sounds: Present: S1 & S2. Absent: gallop, rub Extremities: pulses intact, No edema, normal color, Full ROM - Gastrointestinal General gastrointestinal: Present: soft, non-tender, non-distended, normal bowel sounds - Genitourinary Female genitourinary: normal - Integumentary Integumentary: clear, warm, dry - Musculoskeletal Musculoskeletal: 1, strength equal bilaterally - Neurologic Neurologic: moves all extremities - Psychiatric Psychiatric: memory intact, appropriate mood/affect, intact judgment & insight - Labs CBC & Chem 7: 08/26/18 06:26 08/26/18 06:26 Labs: Abnormal lab results 08/26/18 08/26/18 08/26/18 Range/Units 06:26 06:26 06:26 RBC 3.11 L (3.65-5.03) M/mm3 Hgb 9.1 L (10.1-14.3) gm/dl Hct 29.3 L (30.3-42.9) % RDW 17.1 H (13.2-15.2) % BUN 49 H (7-17) mg/dL Creatinine 7.9 H (0.7-1.2) mg/dL Glucose 122 H (65-100) mg/dL POC Glucose (70-105) Hemoglobin A1c 6.8 H (4-6) % ALT 6 L (7-56) units/L Albumin 3.4 L (3.9-5) g/dL 08/26/18 08/26/18 08/26/18 Range/Units 08:41 12:04 16:31 RBC (3.65-5.03) M/mm3 Hgb (10.1-14.3) gm/dl Hct (30.3-42.9) % RDW (13.2-15.2) % BUN (7-17) mg/dL Creatinine (0.7-1.2) mg/dL Glucose (65-100) mg/dL POC Glucose 126 H 118 H 121 H (70-105) Hemoglobin A1c (4-6) % ALT (7-56) units/L Albumin (3.9-5) g/dL
[2018-08-27] MEDS: ZOFRAN IV PRN (04:58)
[2018-08-27] MEDS: DILAUDID IV PRN ×4 (04:58→23:43)
[2018-08-27] MEDS: ZOFRAN ODT PO SCH ×3 (06:46→23:42)
[2018-08-27] MEDS: APRESOLINE PO SCH ×3 (06:47→23:03)
[2018-08-27 07:40] LABS: Calcium 8.2 mg/dL (8.4-10.2)
[2018-08-27] MEDS: HumaLOG SUB-Q SCH ×4 (08:10→23:00)
[2018-08-27] MEDS: NORMODYNE PO SCH ×3 (08:10→23:03)
[2018-08-27] MEDS: CATAPRES PO SCH ×3 (08:10→23:02)
--- NOTE | 2018-08-27 08:13 | Progress Note ---
Assessment and Plan impression * end-stage renal disease * Clotted AV graft * Uncontrolled hypertension * Anemia secondary to ESRD Recommendations * Patient is in the OPPU area waiting to have vascular procedure done * Scheduled for dialysis today after access * Adjust diet and meds for ESRD state * Procrit with dialysis * Binders with meals * Avoid nephrotoxins Subjective Date of service: 08/27/18 Principal diagnosis: Clotted ROU Access Interval history: Patient is comfortable today. Denies any shortness of breath. No nausea or vomiting. Objective - Vital Signs Vital signs: Vital Signs - 12hr 08/26/18 08/26/18 08/26/18 20:49 21:40 22:00 Temperature Pulse Rate Respiratory 20 Rate Blood Pressure 123/70 123/70 O2 Sat by Pulse Oximetry 08/26/18 08/27/18 23:03 04:29 Temperature 98.4 F 99.5 F Pulse Rate 86 88 Respiratory 18 24 Rate Blood Pressure 118/67 143/85 O2 Sat by Pulse 97 96 Oximetry - General Appearance General appearance: well-developed, well-nourished, appears stated age EENT: PERRL, mucous membranes moist Neck: no JVD, no thyromegaly, no carotid bruit, supple Respiratory: Present: Clear to Ascultation Cardiology: regular, normal heart rate, S1S2, no murmurs Gastrointestinal: normal, normoactive bowel sounds Integumentary: other (no edema. Right forearm AV graft. No bruit or thrill.) - Lab 08/26/18 06:26 08/27/18 07:20 Most recent lab results Calcium 8.2 mg/dL (8.4-10.2) L 08/27/18 07:20 Magnesium 2.00 mg/dL (1.7-2.3) 08/25/18 Unknown Medications & Allergies - Medications Allergies/Adverse Reactions: Allergies Fish Containing Products Allergy (Verified 07/10/18 17:56) Rash metformin Allergy (Verified 10/25/16 01:38) Hives metoclopramide HCl [From Reglan] Allergy (Verified 10/25/16 01:38) Hives prochlorperazine [From Compazine] Allergy (Verified 10/25/16 01:38) Hives prochlorperazine edisylate [From Compazine] Allergy (Verified 10/25/16 01:38) Hives prochlorperazine maleate [From Compazine] Allergy (Verified 10/25/16 01:38) Hives shellfish Allergy (Uncoded 07/30/18 12:26) Swelling Home Medications: Home Medications Medication Instructions Recorded Confirmed Last Taken Type traMADol [Ultram 50 MG tab] 50 mg PO Q6H PRN #20 tablet 07/30/18 08/27/18 08/23/18 Rx Apixaban [Eliquis] 2.5 mg PO Q12HR #60 tablet 08/04/18 08/27/18 08/23/18 Rx Aspirin [Aspirin BABY CHEW TAB] 81 mg PO QDAY #30 tab.chew 08/04/18 08/27/18 08/23/18 Rx AtorvaSTATin [Lipitor] 40 mg PO QHS #30 tablet 08/04/18 08/27/18 08/23/18 Rx Labetalol [Normodyne TAB] 300 mg PO TID #90 tablet 08/04/18 08/27/18 08/23/18 Rx Pantoprazole [Protonix TAB] 40 mg PO BID #60 tablet 08/04/18 08/27/18 08/23/18 Rx amLODIPine [Norvasc] 10 mg PO DAILY #30 tablet 08/04/18 08/27/18 08/23/18 Rx cloNIDine [Catapres] 0.2 mg PO TID #90 tablet 08/04/18 08/27/18 08/23/18 Rx hydrALAZINE [Apresoline TAB] 50 mg PO Q8HR #90 tablet 08/04/18 08/27/18 08/23/18 Rx Ondansetron [Zofran ODT TAB] 4 mg PO Q8HR #20 tab.rapdis 08/07/18 08/27/18 08/23/18 Rx HYDROcodone/APAP 5-325 [[place] 1 - 2 each PO Q6HR PRN #14 tablet 08/08/18 08/27/18 08/23/18 Rx 5-325 mg TAB] Promethazine [Phenergan SUPPOS] 25 mg MS Q6HR PRN #10 supp.rect 08/08/18 08/27/18 08/23/18 Rx Promethazine [Phenergan TAB] 25 mg PO Q6HR PRN #20 tab 12/08/27/18 08/23/18 Rx Promethazine [Phenergan] 25 mg MS Q6HR PRN #30 supp.rect 08/23/18 08/27/18 08/23/18 Rx Active Medications: Generic Name Dose Route Start Last Admin Trade Name Freq PRN Reason Stop Dose Admin Acetaminophen 650 mg 08/25/18 23:09 Tylenol PO Q4H PRN Pain MILD(1-3)/Fever >100.5/CHAVES Amlodipine Besylate 10 mg 08/26/18 10:00 08/26/18 09:55 Norvasc PO 10 mg DAILY TRUDI Administration Clonidine HCl 0.2 mg 08/26/18 08:00 08/27/18 08:10 Catapres PO Not Given TID [facility] Diphenhydramine HCl 25 mg 08/26/18 16:48 08/26/18 17:25 Benadryl IV 25 mg Q4H PRN Administration Itching Heparin Sodium (Porcine) 5,000 unit 08/25/18 23:15 08/26/18 21:39 Heparin SUB-Q Not Given Q12HR [facility] Hydralazine HCl 50 mg 08/26/18 06:00 08/27/18 06:47 Apresoline PO Not Given Q8HR [facility] Hydromorphone HCl 0.25 mg 08/25/18 23:09 08/27/18 04:58 Dilaudid IV 0.25 mg Q3H PRN Administration Pain, Moderate (4-6) Sodium Chloride 100 mls @ 999 mls/hr 08/26/18 16:39 Nacl 0.9% IV ELANA PRN Hypotension Insulin Human Lispro 0 unit 08/26/18 07:30 08/27/18 08:10 Humalog SUB-Q Not Given ACHS [facility] Protocol Labetalol HCl 300 mg 08/26/18 08:00 08/27/18 08:10 Normodyne PO Not Given TID [facility] Ondansetron HCl 4 mg 08/25/18 23:09 08/27/18 04:58 Zofran IV 4 mg Q8H PRN Administration Nausea And Vomiting Ondansetron HCl 4 mg 08/26/18 06:00 08/27/18 06:46 Zofran Odt PO Not Given Q8HR [facility] Oxycodone/Acetaminophen 1 tab 08/25/18 23:09 Percocet 5/325 PO Q6H PRN Pain, Moderate (4-6) Pantoprazole Sodium 40 mg 08/26/18 10:00 08/26/18 21:41 Protonix PO 40 mg BID TRUDI Administration Promethazine HCl 25 mg 08/25/18 23:15 Phenergan MS Q6HR PRN Vomiting Promethazine HCl 25 mg 08/25/18 23:15 Phenergan PO Q6HR PRN Nausea Sodium Chloride 10 ml 08/25/18 23:45 08/26/18 21:41 Sodium Chloride Flush Syringe 10 Ml IV 10 ml BID TRUDI Administration Sodium Chloride 10 ml 08/25/18 23:09 Sodium Chloride Flush Syringe 10 Ml IV PRN PRN LINE FLUSH Tramadol HCl 50 mg 08/25/18 23:15 Ultram PO Q6H PRN Pain, Moderate (4-6)
[2018-08-27] MEDS ORDERED: HEPARIN/NS 5000 UNIT/500ML(CATH LAB) 1,000 ML IR ONE (08:26)
[2018-08-27] MEDS: SUBLIMAZE ONE ×6 (09:03→10:31)
[2018-08-27] MEDS: VERSED ONE ×6 (09:03→10:31)
[2018-08-27] MEDS: XYLOCAINE 2% INFILTRATI ONE ×3 (09:05→10:50)
--- NOTE | 2018-08-27 09:17 | Progress Note ---
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 No shortness of breath. Patient complains of chronic body pains. She was sent from the dialysis clinic for evaluation of blood pressure also. No fever or chills. she had a right upper extremity AV access placed one year ago and it is a forearm loop graft placed a year ago (1) Dialysis AV fistula malfunction- Thrombosed AV graft Current Visit: Yes Status: Acute Qualifiers: Encounter type: initial encounter Qualified Code(s): T82.590A - Other mechanical complication of surgically created arteriovenous fistula, initial encounter Plan to address problem: Vascular surgery consulted For Thrombectomy and possible vascath today with possible permacath and vein mapping for fistula (2) Hypertensive emergency Current Visit: Yes Status: Acute Plan to address problem: Cont antihypertensives (3) CVA (cerebral vascular accident) Current Visit: No Status: Chronic Qualifiers: CVA mechanism: thrombosis Precerebral and cerebral artery: middle cerebral artery Laterality of affected vessel: right Qualified Code(s): I63.311 - Cerebral infarction due to thrombosis of right middle cerebral artery Plan to address problem: Supportive care (4) Diabetic gastroparesis Current Visit: No Status: Chronic Plan to address problem: Patient with Gastric pacemaker (5) HTN (hypertension) Current Visit: No Status: Chronic Qualifiers: Hypertension type: essential hypertension Plan to address problem: Cont antihypertensives (6) Secondary Coagulopathy Current Visit: No Status: Chronic Plan to address problem: Eliquis on hold for expected surgery in a day or 2 (7) Type 2 diabetes mellitus with diabetic chronic kidney disease Current Visit: No Status: Chronic Qualifiers: Chronic kidney disease stage: on chronic dialysis Plan to address problem: ADJUST MEDS (8) End stage renal disease on dialysis Current Visit: No Status: Chronic Plan to address problem: Cont HD (9) HLD (hyperlipidemia) Current Visit: Yes Status: Acute Qualifiers: Hyperlipidemia type: mixed hyperlipidemia Qualified Code(s): E78.2 - Mixed hyperlipidemia Plan to address problem: On Statins (10) DVT prophylaxis Current Visit: No Status: Acute Plan to address problem: Heparin 5000 Q12h plan discussed with nursing staff History Interval history: Patient is seen today for: Clotted AV graft Seen and examined at bedside; 24hour events reviewed; nursing staff ; no adverse overnight events reported to me; Denies any chest pain, nausea, vomiting, diarrh ea No fever noted blood pressure controlled. She is requesting for 1 mg of dilaudid for pain control Hospitalist Physical - Physical exam Narrative exam: VITAL SIGNS: Reviewed. GENERAL: The patient appeared well nourished and normally developed. Vital signs as documented. HEAD: No signs of head trauma. EYES: Pupils are equal. Extraocular motions intact. EARS: Hearing grossly intact. MOUTH: Oropharynx is normal. NECK: No adenopathy, no JVD. CHEST: Chest with clear breath sounds bilaterally. No wheezes, rales, or rhonchi. CARDIAC: Regular rate and rhythm. S1 and S2, without murmurs, gallops, or rubs. VASCULAR: No Edema. Peripheral pulses normal and equal in all extremities. ABDOMEN: Soft, without detectable tenderness. No sign of distention. No rebound or guarding, and no masses palpated. Bowel Sounds normal. MUSCULOSKELETAL: Good range of motion of all major joints. Extremities without clubbing, cyanosis or edema. NEUROLOGIC EXAM: Alert and oriented x 3. No focal sensory or strength deficits. Speech normal. Follows commands. PSYCHIATRIC: Mood normal. SKIN: RIGHT UPPER EXT AV GRAFT - Constitutional Vitals: Temp Pulse Resp BP Pulse Ox 99.5 F 88 24 143/85 96 08/27/18 04:29 08/27/18 04:29 08/27/18 04:29 08/27/18 04:29 08/27/18 04:29 General appearance: Present: no acute distress, well-nourished Results - Labs CBC & Chem 7: 08/26/18 06:26 08/27/18 07:20 Labs: Laboratory Last Values WBC 8.6 K/mm3 (4.5-11.0) 08/26/18 06:26 RBC 3.11 M/mm3 (3.65-5.03) L 08/26/18 06:26 Hgb 9.1 gm/dl (10.1-14.3) L 08/26/18 06:26 Hct 29.3 % (30.3-42.9) L 08/26/18 06:26 MCV 94 fl (79-97) 08/26/18 06:26 MCH 29 pg (28-32) 08/26/18 06:26 MCHC 31 % (30-34) 08/26/18 06:26 RDW 17.1 % (13.2-15.2) H 08/26/18 06:26 Plt Count 391 K/mm3 (140-440) 08/26/18 06:26 Lymph % (Auto) 23.3 % (13.4-35.0) 08/26/18 06:26 [place] % (Auto) 6.8 % (0.0-7.3) 08/26/18 06:26 Eos % (Auto) 2.4 % (0.0-4.3) 08/26/18 06:26 Baso % (Auto) 0.6 % (0.0-1.8) 08/26/18 06:26 Lymph # 2.0 K/mm3 (1.2-5.4) 08/26/18 06:26 [place] # 0.6 K/mm3 (0.0-0.8) 08/26/18 06:26 Eos # 0.2 K/mm3 (0.0-0.4) 08/26/18 06:26 Baso # 0.1 K/mm3 (0.0-0.1) 08/26/18 06:26 Seg Neutrophils % 66.9 % (40.0-70.0) 08/26/18 06:26 Seg Neutrophils # 5.7 K/mm3 (1.8-7.7) 08/26/18 06:26 PT 12.3 Sec. (12.2-14.9) 08/25/18 Unknown INR 0.88 (0.87-1.13) 08/25/18 Unknown APTT 29.6 Sec. (24.2-36.6) 08/25/18 Unknown Sodium 140 mmol/L (137-145) 08/27/18 07:20 Potassium 3.9 mmol/L (3.6-5.0) 08/27/18 07:20 Chloride 100.2 mmol/L (98-107) 08/27/18 07:20 Carbon Dioxide 28 mmol/L (22-30) 08/27/18 07:20 Anion Gap 16 mmol/L 08/27/18 07:20 BUN 50 mg/dL (7-17) H 08/27/18 07:20 Creatinine 7.7 mg/dL (0.7-1.2) H 08/27/18 07:20 Estimated GFR 7 ml/min 08/27/18 07:20 BUN/Creatinine Ratio 6 % 08/27/18 07:20 Glucose 126 mg/dL (65-100) H 08/27/18 07:20 POC Glucose 115 (70-105) H 08/26/18 20:57 Hemoglobin A1c 6.8 % (4-6) H 08/26/18 06:26 Calcium 8.2 mg/dL (8.4-10.2) L 08/27/18 07:20 Magnesium 2.00 mg/dL (1.7-2.3) 08/25/18 Unknown Total Bilirubin 0.30 mg/dL (0.1-1.2) 08/26/18 06:26 AST 8 units/L (5-40) 08/26/18 06:26 ALT 6 units/L (7-56) L 08/26/18 06:26 Alkaline Phosphatase 90 units/L (35-129) 08/26/18 06:26 Total Protein 7.0 g/dL (6.3-8.2) 08/26/18 06:26 Albumin 3.4 g/dL (3.9-5) L 08/26/18 06:26 Albumin/Globulin Ratio 0.9 % 08/26/18 06:26
[2018-08-27] MEDS: HEPARIN SUB-Q SCH ×2 (10:00→23:06)
[2018-08-27] MEDS: SODIUM CHLORIDE FLUSH SYRINGE 10 ML IV SCH ×2 (10:00→23:02)
[2018-08-27] MEDS: PROTONIX PO SCH ×2 (10:00→23:43)
[2018-08-27] MEDS: NORVASC PO SCH (10:00)
[2018-08-27] MEDS ORDERED: HEPARIN 10,000 UNITS/10 ML ONE (10:31)
--- NOTE | 2018-08-27 11:11 | Operative Report ---
Operative Report Operative Report: Exam: Right arm fistulogram, left groin Vas-Cath Clinical indication: Patient with a history of a left forearm loop graft placed in [place] that is thrombosed. Date: 08/27/2018 Procedure: Following an explanation of the risks, benefits and alternatives; written informed consent was obtained. The patient was brought to the antigravity suite placed in supine position on the examination table. Initial ultrasound evaluation of her graft demonstrated that the arterial anastomosis is in the antecubital fossa and the venous anastomosis following looping in the arm extends up and joins the veins in the mid upper arm. The patient's arm was prepped and draped in usual sterile fashion. 1% lidocaine was used for anesthesia. Access toward the venous anastomosis was obtained using ultrasound guidance and a 7 cm 21-gauge needle. A 0.01 a guidewire was advanced through the graft. The needle was removed and a marker she placed. The 0.018 guidewire was changed from 0.035 guidewire a 7 Frisian sheath placed. Access towards the arterial anastomosis was obtained in a similar fashion and a 6 Frisian sheath placed 40 arterial anastomosis. The vertebral catheter was advanced over the guidewire through the venous anastomosis. Imaging of the central veins was performed. A previously placed port is present on the patient's right chest wall with a tubing appearing in the proximal right atrium. There is about a 90% stenosis involving the venous anastomosis with thrombus extending from the upper arm to the sheath insertion site. Venoplasty of the venous anastomotic stenosis was performed using an 8 mm balloon. Thrombectomy was then performed using the Treretoloa mechanical thrombectomy device. The vertebral catheter was then advanced over the guidewire through the arterial anastomosis. Contrast was injected which demonstrates thrombus extending from the arterial anastomosis to the sheath in sertion site. A rodrigo balloon was inserted however would not pass the arterial anastomosis in the inflated position. The Rodrigo balloon was removed and angioplasty of the arterial anastomosis was performed using a 4 mm balloon. The 4 mm balloon was then used to sweep the graft. The Rodrigo balloon and was then advanced through the arterial anastomosis and again used to sweep the graft however, there was significant deformity at the arterial anastomosis arterial anastomosis was again angioplasty with a 4 mm balloon. There appears to be some irregularity at the surgical anastomosis. At this point, attempts to remove the thrombus from the graft were abandoned secondary to arterial anastomotic need for revision. Initial ultrasound evaluation of the patient's left neck was performed which demonstrated a diminutive although patent left internal jugular vein. Patient's left neck and chest wall were prepped and draped in the usual sterile fashion. 1% lidocaine was used for anesthesia. Under ultrasound guidance, a 7 cm 18- gauge needle was advanced into the internal jugular vein. A 0.035 guidewire was advanced however would not pass centrally. The needle was removed and a vert ebral catheter placed. Contrast was injected through the vertebral catheter which demonstrated occlusion of the distal internal jugular vein. There is filling from left to right through thyroidal collaterals. Ultrasound evaluation of the patient's left groin was then preformed. This demonstrated a patent left common femoral vein. The patient's left groin and was prepped and draped in usual sterile fashion. 1% local lidocaine was used for anesthesia. A 7 cm 18-gauge needle was advanced into the left common femoral vein. A 0.035 guidewire was advanced into the IVC under fluoroscopy. The needle was removed and following serial dilation over the guidewire under fluoroscopy, a 30 cm dialysis catheter was placed over the guidewire under fluoroscopy to position the tip in the IVC. The guidewire was removed. All 3 ports flushed and aspirated easily and more than locked with appropriate amounts of heparin. The catheter was securely fastened and skin surface using 2-0 Ethilon suture. Sterile dressings were then applied. Patient tolerated the procedure well. There were no immediate post procedure complications. Conscious sedation was performed under the guidance of radiologic nursing. Continuous cardiopulmonary monitoring was utilized. Impression: 1) Unsuccessful declot the patient's right forearm loop graft secondary to arterial anastomotic irregularities. The patient will need to undergo revision of the arterial anastomosis surgically. 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 3) Placement of a 30 cm Vas-Cath in the left common femoral vein.
[2018-08-27] MEDS ORDERED: DILAUDID IV ONE (12:36)
[2018-08-27] MEDS ORDERED: NACL 0.9 (PRIMING MACHINE ONLY DIALYSIS) MC ONE (17:42)
[2018-08-27] MEDS: BENADRYL PO PRN (20:38)
[2018-08-28] MEDS: DILAUDID IV PRN ×6 (03:25→21:23)
[2018-08-28] MEDS: APRESOLINE PO SCH ×3 (06:04→21:21)
[2018-08-28] MEDS: ZOFRAN ODT PO SCH ×3 (06:06→21:22)
[2018-08-28] MEDS: HumaLOG SUB-Q SCH ×4 (08:20→21:38)
[2018-08-28] MEDS: CATAPRES PO SCH ×3 (08:48→21:21)
[2018-08-28] MEDS: NORMODYNE PO SCH ×3 (08:48→21:20)
--- NOTE | 2018-08-28 09:05 | Progress Note ---
Assessment and Plan Impression * end-stage renal disease * Clotted AV graft * Uncontrolled hypertension * Anemia secondary to ESRD Recommendations * s/p fem vasc cath placement, hd q MWF, home once perm cath placed or successful thrombectomy * Adjust diet and meds for ESRD state * Procrit with dialysis * Binders with meals * Avoid nephrotoxins Subjective Date of service: 08/28/18 Principal diagnosis: Clotted ROU Access Interval history: resting well in bed today Objective - Exam Narrative Exam: General appearance: well-developed, well-nourished, appears stated age EENT: PERRL, mucous membranes moist Neck: no JVD, no thyromegaly, no carotid bruit, supple Respiratory: Present: Clear to Ascultation Cardiology: regular, normal heart rate, S1S2, no murmurs Gastrointestinal: normal, normoactive bowel sounds Integumentary: other (no edema. Right forearm AV graft. No bruit or thrill.) - Vital Signs Vital signs: Vital Signs - 12hr 08/27/18 08/27/18 08/27/18 21:15 21:30 21:45 Temperature Pulse Rate 86 84 84 Respiratory Rate Blood Pressure 124/69 114/59 123/61 O2 Sat by Pulse Oximetry 08/27/18 08/27/18 08/28/18 22:15 23:53 05:45 Temperature 98.3 F 98.6 F 98.6 F Pulse Rate 86 96 H 92 H Respiratory 18 18 20 Rate Blood Pressure 117/63 119/70 137/78 O2 Sat by Pulse 98 95 Oximetry - Lab 08/26/18 06:26 08/27/18 07:20 Most recent lab results Calcium 8.2 mg/dL (8.4-10.2) L 08/27/18 07:20 Magnesium 2.00 mg/dL (1.7-2.3) 08/25/18 Unknown Medications & Allergies - Medications Allergies/Adverse Reactions: Allergies Fish Containing Products Allergy (Verified 07/10/18 17:56) Rash metformin Allergy (Verified 10/25/16 01:38) Hives metoclopramide HCl [From Reglan] Allergy (Verified 10/25/16 01:38) Hives prochlorperazine [From Compazine] Allergy (Verified 10/25/16 01:38) Hives prochlorperazine edisylate [From Compazine] Allergy (Verified 10/25/16 01:38) Hives prochlorperazine maleate [From Compazine] Allergy (Verified 10/25/16 01:38) Hives shellfish Allergy (Uncoded 07/30/18 12:26) Swelling Home Medications: Home Medications Medication Instructions Recorded Confirmed Last Taken Type traMADol [Ultram 50 MG tab] 50 mg PO Q6H PRN #20 tablet 07/30/18 08/27/18 08/23/18 Rx Apixaban [Eliquis] 2.5 mg PO Q12HR #60 tablet 08/04/18 08/27/18 08/23/18 Rx Aspirin [Aspirin BABY CHEW TAB] 81 mg PO QDAY #30 tab.chew 08/04/18 08/27/18 08/23/18 Rx AtorvaSTATin [Lipitor] 40 mg PO QHS #30 tablet 08/04/18 08/27/18 08/23/18 Rx Labetalol [Normodyne TAB] 300 mg PO TID #90 tablet 08/04/18 08/27/18 08/23/18 Rx Pantoprazole [Protonix TAB] 40 mg PO BID #60 tablet 08/04/18 08/27/18 08/23/18 Rx amLODIPine [Norvasc] 10 mg PO DAILY #30 tablet 08/04/18 08/27/18 08/23/18 Rx cloNIDine [Catapres] 0.2 mg PO TID #90 tablet 08/04/18 08/27/18 08/23/18 Rx hydrALAZINE [Apresoline TAB] 50 mg PO Q8HR #90 tablet 08/04/18 08/27/18 08/23/18 Rx Ondansetron [Zofran ODT TAB] 4 mg PO Q8HR #20 tab.rapdis 08/07/18 08/27/18 08/23/18 Rx HYDROcodone/APAP 5-325 [[place] 1 - 2 each PO Q6HR PRN #14 tablet 08/08/18 08/27/18 08/23/18 Rx 5-325 mg TAB] Promethazine [Phenergan SUPPOS] 25 mg MA Q6HR PRN #10 supp.rect 08/08/18 08/27/18 08/23/18 Rx Promethazine [Phenergan TAB] 25 mg PO Q6HR PRN #20 tab 08/08/18 08/27/18 08/23/18 Rx Promethazine [Phenergan] 25 mg MA Q6HR PRN #30 supp.rect 08/23/18 08/27/18 08/23/18 Rx Active Medications: Generic Name Dose Route Start Last Admin Trade Name Freq PRN Reason Stop Dose Admin Acetaminophen 650 mg 08/25/18 23:09 Tylenol PO Q4H PRN Pain MILD(1-3)/Fever >100.5/CHAVES Amlodipine Besylate 10 mg 08/26/18 10:00 08/27/18 10:00 Norvasc PO Not Given DAILY TRUDI Clonidine HCl 0.2 mg 08/26/18 08:00 08/28/18 08:48 Catapres PO 0.2 mg TID TRUDI Administration Diphenhydramine HCl 25 mg 08/27/18 18:06 08/27/18 20:38 Benadryl PO 25 mg Q6H PRN Administration Itching Heparin Sodium (Porcine) 5,000 unit 08/25/18 23:15 08/27/18 23:06 Heparin SUB-Q Not Given Q12HR TRUDI Hydralazine HCl 50 mg 08/26/18 06:00 08/28/18 06:04 Apresoline PO Not Given Q8HR [facility] Hydromorphone HCl 0.25 mg 08/25/18 23:09 08/28/18 07:20 Dilaudid IV 0.25 mg Q3H PRN Administration Pain, Moderate (4-6) Sodium Chloride 100 mls @ 999 mls/hr 08/26/18 16:39 Nacl 0.9% IV ELANA PRN Hypotension Insulin Human Lispro 0 unit 08/26/18 07:30 08/28/18 08:20 Humalog SUB-Q Not Given ACHS [facility] Protocol Labetalol HCl 300 mg 08/26/18 08:00 08/28/18 08:48 Normodyne PO 300 mg TID TRUDI Administration Ondansetron HCl 4 mg 08/25/18 23:09 08/27/18 04:58 Zofran IV 4 mg Q8H PRN Administration Nausea And Vomiting Ondansetron HCl 4 mg 08/26/18 06:00 08/28/18 06:06 Zofran Odt PO 4 mg Q8HR TRUDI Administration Oxycodone/Acetaminophen 1 tab 08/25/18 23:09 Percocet 5/325 PO Q6H PRN Pain, Moderate (4-6) Pantoprazole Sodium 40 mg 08/26/18 10:00 08/27/18 23:43 Protonix PO 40 mg BID TRUDI Administration Promethazine HCl 25 mg 08/25/18 23:15 Phenergan MA Q6HR PRN Vomiting Promethazine HCl 25 mg 08/25/18 23:15 Phenergan PO Q6HR PRN Nausea Sodium Chloride 10 ml 08/25/18 23:45 08/27/18 23:02 Sodium Chloride Flush Syringe 10 Ml IV 10 ml BID TRUDI Administration Sodium Chloride 10 ml 08/25/18 23:09 Sodium Chloride Flush Syringe 10 Ml IV PRN PRN LINE FLUSH Tramadol HCl 50 mg 08/25/18 23:15 Ultram PO Q6H PRN Pain, Moderate (4-6)
[2018-08-28] MEDS: NORVASC PO SCH (10:10)
[2018-08-28] MEDS: PROTONIX PO SCH ×2 (10:10→21:20)
[2018-08-28] MEDS: HEPARIN SUB-Q SCH ×2 (10:10→21:29)
[2018-08-28] MEDS: SODIUM CHLORIDE FLUSH SYRINGE 10 ML IV SCH ×2 (10:11→21:22)
--- NOTE | 2018-08-28 10:59 | Progress Note ---
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 No shortness of breath. Patient complains of chronic body pains. She was sent from the dialysis clinic for evaluation of blood pressure also. No fever or chills. she had a right upper extremity AV access placed one year ago and it is a forearm loop graft placed a year ago (1) Dialysis AV fistula malfunction- Thrombosed AV graft Current Visit: Yes Status: Acute Qualifiers: Encounter type: initial encounter Qualified Code(s): T82.590A - Other mechanical complication of surgically created arteriovenous fistula, initial encounter Plan to address problem: Vascular surgery consulted Thrombectomy and possible vascath Was unsuccessfull. Plan is for The patient to undergo revision of the arterial anastomosis surgically. 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 Possible creation of another of the AV graft. (2) Hypertensive emergency Current Visit: Yes Status: Acute Plan to address problem: Cont antihypertensives Better (3) CVA (cerebral vascular accident) Current Visit: No Status: Chronic Qualifiers: CVA mechanism: thrombosis Precerebral and cerebral artery: middle cerebral artery Laterality of affected vessel: right Qualified Code(s): I63.311 - Cerebral infarction due to thrombosis of right middle cerebral artery Plan to address problem: Supportive care (4) Diabetic gastroparesis Current Visit: No Status: Chronic Plan to address problem: Patient with Gastric pacemaker (5) HTN (hypertension) Current Visit: No Status: Chronic Qualifiers: Hypertension type: essential hypertension Plan to address problem: Cont antihypertensives (6) Secondary Coagulopathy Current Visit: No Status: Chronic Plan to address problem: Eliquis on hold for expected surgery in a day or 2 (7) Type 2 diabetes mellitus with diabetic chronic kidney disease Current Visit: No Status: Chronic Qualifiers: Chronic kidney disease stage: on chronic dialysis Plan to address problem: ADJUST MEDS (8) End stage renal disease on dialysis Current Visit: No Status: Chronic Plan to address problem: Cont HD (9) HLD (hyperlipidemia) Current Visit: Yes Status: Acute Qualifiers: Hyperlipidemia type: mixed hyperlipidemia Qualified Code(s): E78.2 - Mixed hyperlipidemia Plan to address problem: On Statins (10) DVT prophylaxis Current Visit: No Status: Acute Plan to address problem: Heparin 5000 Q12h plan discussed with nursing staff History Interval history: Patient is seen today for: Clotted AV graft Seen and examined at bedside; 24hour events reviewed; nursing staff ; no adverse overnight events reported to me; Denies any chest pain, nausea, vomiting, diarrhea. Pain appears better control today No fever noted blood pressure controlled. Hospitalist Physical - Physical exam Narrative exam: VITAL SIGNS: Reviewed. GENERAL: The patient appeared well nourished and normally developed. Vital signs as documented. HEAD: No signs of head trauma. EYES: Pupils are equal. Extraocular motions intact. EARS: Hearing grossly intact. MOUTH: Oropharynx is normal. NECK: No adenopathy, no JVD. CHEST: Chest with clear breath sounds bilaterally. No wheezes, rales, or rhonchi. CARDIAC: Regular rate and rhythm. S1 and S2, without murmurs, gallops, or rubs. VASCULAR: No Edema. Peripheral pulses normal and equal in all extremities. ABDOMEN: Soft, without detectable tenderness. No sign of distention. No rebound or guarding, and no masses palpated. Bowel Sounds normal. MUSCULOSKELETAL: Good range of motion of all major joints. Extremities without clubbing, cyanosis or edema. NEUROLOGIC EXAM: Alert and oriented x 3. No focal sensory or strength deficits. Speech normal. Follows commands. PSYCHIATRIC: Mood normal. SKIN: RIGHT UPPER EXT AV GRAFT - Constitutional Vitals: Temp Pulse Resp BP Pulse Ox 98.6 F 92 H 20 137/78 95 08/28/18 05:45 08/28/18 05:45 08/28/18 05:45 08/28/18 05:45 08/28/18 05:45 General appearance: Present: no acute distress, well-nourished Results - Labs CBC & Chem 7: 08/26/18 06:26 08/27/18 07:20 Labs: Laboratory Last Values WBC 8.6 K/mm3 (4.5-11.0) 08/26/18 06:26 RBC 3.11 M/mm3 (3.65-5.03) L 08/26/18 06:26 Hgb 9.1 gm/dl (10.1-14.3) L 08/26/18 06:26 Hct 29.3 % (30.3-42.9) L 08/26/18 06:26 MCV 94 fl (79-97) 08/26/18 06:26 MCH 29 pg (28-32) 08/26/18 06:26 MCHC 31 % (30-34) 08/26/18 06:26 RDW 17.1 % (13.2-15.2) H 08/26/18 06:26 Plt Count 391 K/mm3 (140-440) 08/26/18 06:26 Lymph % (Auto) 23.3 % (13.4-35.0) 08/26/18 06:26 [place] % (Auto) 6.8 % (0.0-7.3) 08/26/18 06:26 Eos % (Auto) 2.4 % (0.0-4.3) 08/26/18 06:26 Baso % (Auto) 0.6 % (0.0-1.8) 08/26/18 06:26 Lymph # 2.0 K/mm3 (1.2-5.4) 08/26/18 06:26 [place] # 0.6 K/mm3 (0.0-0.8) 08/26/18 06:26 Eos # 0.2 K/mm3 (0.0-0.4) 08/26/18 06:26 Baso # 0.1 K/mm3 (0.0-0.1) 08/26/18 06:26 Seg Neutrophils % 66.9 % (40.0-70.0) 08/26/18 06:26 Seg Neutrophils # 5.7 K/mm3 (1.8-7.7) 08/26/18 06:26 PT 12.3 Sec. (12.2-14.9) 08/25/18 Unknown INR 0.88 (0.87-1.13) 08/25/18 Unknown APTT 29.6 Sec. (24.2-36.6) 08/25/18 Unknown Sodium 140 mmol/L (137-145) 08/27/18 07:20 Potassium 3.9 mmol/L (3.6-5.0) 08/27/18 07:20 Chloride 100.2 mmol/L (98-107) 08/27/18 07:20 Carbon Dioxide 28 mmol/L (22-30) 08/27/18 07:20 Anion Gap 16 mmol/L 08/27/18 07:20 BUN 50 mg/dL (7-17) H 08/27/18 07:20 Creatinine 7.7 mg/dL (0.7-1.2) H 08/27/18 07:20 Estimated GFR 7 ml/min 08/27/18 07:20 BUN/Creatinine Ratio 6 % 08/27/18 07:20 Glucose 126 mg/dL (65-100) H 08/27/18 07:20 POC Glucose 108 (70-105) H 08/28/18 08:17 Hemoglobin A1c 6.8 % (4-6) H 08/26/18 06:26 Calcium 8.2 mg/dL (8.4-10.2) L 08/27/18 07:20 Magnesium 2.00 mg/dL (1.7-2.3) 08/25/18 Unknown Total Bilirubin 0.30 mg/dL (0.1-1.2) 08/26/18 06:26 AST 8 units/L (5-40) 08/26/18 06:26 ALT 6 units/L (7-56) L 08/26/18 06:26 Alkaline Phosphatase 90 units/L (35-129) 08/26/18 06:26 Total Protein 7.0 g/dL (6.3-8.2) 08/26/18 06:26 Albumin 3.4 g/dL (3.9-5) L 08/26/18 06:26 Albumin/Globulin Ratio 0.9 % 08/26/18 06:26 Nutrition/Malnutrition Assess - Dietary Evaluation Nutrition/Malnutrition Findings: Nutrition Notes Start: 08/27/18 16:17 Freq: Status: Active Protocol: Document 08/27/18 16:17 OH (Rec: 08/27/18 16:17 OH [id number]) Nutrition Notes Initial or Follow up Brief Note Subjective/Other Information Pt. not in room at time of RD visit. Nutrition Intervention Follow-Up By: 08/28/18
--- NOTE | 2018-08-28 12:48 | Progress Note ---
Assessment and Plan ESRD on hemodialysis Complication of hemodialysis access Her right arm AV graft created in [place] has thrombosed. Attempts at declotting the access were unsuccessful. Has history of DVT to the left upper extremity so has not been used in the past for hemodialysis access. She is currently getting hemodialysis through left common femoral vein vas cath. Will plan for creation of new right arm av graft this week. More than likely Accus eal. Discussed all in detail with her. Risks, benefits and alternatives discussed in detail. Subjective Date of service: 08/28/18 Principal diagnosis: Clotted ROU Access Interval history: Patient awake alert resting in bed. No new complaints voiced. Objective - Exam Narrative Exam: Awake, alert. Mentally intact. Visually impaired. Respirations nonlabored at rest. Right chest port present and accessed. Good ROM extremities. Thrombosed right forearm av graft present. Left Common femoral vein Vas cath present. - Constitutional Vitals: Vital Signs - 12hr 08/28/18 05:45 Temperature 98.6 F Pulse Rate 92 H Respiratory 20 Rate Blood Pressure 137/78 O2 Sat by Pulse 95 Oximetry - Labs CBC & Chem 7: 08/26/18 06:26 08/27/18 07:20 Labs: Abnormal lab results 08/27/18 08/27/18 08/27/18 Range/Units 12:26 16:02 22:07 POC Glucose 133 H 139 H 189 H (70-105) 08/28/18 Range/Units 08:17 POC Glucose 108 H (70-105) Medications & Allergies - Medications Allergies/Adverse Reactions: Allergies Fish Containing Products Allergy (Verified 07/10/18 17:56) Rash metformin Allergy (Verified 10/25/16 01:38) Hives metoclopramide HCl [From Reglan] Allergy (Verified 10/25/16 01:38) Hives prochlorperazine [From Compazine] Allergy (Verified 10/25/16 01:38) Hives prochlorperazine edisylate [From Compazine] Allergy (Verified 10/25/16 01:38) Hives prochlorperazine maleate [From Compazine] Allergy (Verified 10/25/16 01:38) Hives shellfish Allergy (Uncoded 07/30/18 12:26) Swelling Home Medications: Home Medications Medication Instructions Recorded Confirmed Last Taken Type traMADol [Ultram 50 MG tab] 50 mg PO Q6H PRN #20 tablet 07/30/18 08/27/18 08/23/18 Rx Apixaban [Eliquis] 2.5 mg PO Q12HR #60 tablet 08/04/18 08/27/18 08/23/18 Rx Aspirin [Aspirin BABY CHEW TAB] 81 mg PO QDAY #30 tab.chew 08/04/18 08/27/18 08/23/18 Rx AtorvaSTATin [Lipitor] 40 mg PO QHS #30 tablet 08/04/18 08/27/18 08/23/18 Rx Labetalol [Normodyne TAB] 300 mg PO TID #90 tablet 08/04/18 08/27/18 08/23/18 Rx Pantoprazole [Protonix TAB] 40 mg PO BID #60 tablet 08/04/18 08/27/18 08/23/18 Rx amLODIPine [Norvasc] 10 mg PO DAILY #30 tablet 08/04/18 08/27/18 08/23/18 Rx cloNIDine [Catapres] 0.2 mg PO TID #90 tablet 08/04/18 08/27/18 08/23/18 Rx hydrALAZINE [Apresoline TAB] 50 mg PO Q8HR #90 tablet 08/04/18 08/27/18 08/23/18 Rx Ondansetron [Zofran ODT TAB] 4 mg PO Q8HR #20 tab.rapdis 08/07/18 08/27/18 08/23/18 Rx HYDROcodone/APAP 5-325 [[place] 1 - 2 each PO Q6HR PRN #14 tablet 08/08/18 08/27/18 08/23/18 Rx 5-325 mg TAB] Promethazine [Phenergan SUPPOS] 25 mg IA Q6HR PRN #10 supp.rect 08/08/18 08/27/18 08/23/18 Rx Promethazine [Phenergan TAB] 25 mg PO Q6HR PRN #20 tab 08/08/18 08/27/18 08/23/18 Rx Promethazine [Phenergan] 25 mg IA Q6HR PRN #30 supp.rect 08/23/18 08/27/18 08/23/18 Rx Active Medications: Generic Name Dose Route Start Last Admin Trade Name Freq PRN Reason Stop Dose Admin Acetaminophen 650 mg 08/25/18 23:09 Tylenol PO Q4H PRN Pain MILD(1-3)/Fever >100.5/CHAVES Amlodipine Besylate 10 mg 08/26/18 10:00 08/28/18 10:10 Norvasc PO 10 mg DAILY [facility] Administration Clonidine HCl 0.2 mg 08/26/18 08:00 08/28/18 08:48 Catapres PO 0.2 mg TID TRUDI Administration Diphenhydramine HCl 25 mg 08/27/18 18:06 08/27/18 20:38 Benadryl PO 25 mg Q6H PRN Administration Itching Heparin Sodium (Porcine) 5,000 unit 08/25/18 23:15 08/28/18 10:10 Heparin SUB-Q 5,000 unit Q12HR TRUDI Administration Hydralazine HCl 50 mg 08/26/18 06:00 08/28/18 06:04 Apresoline PO Not Given Q8HR [facility] Hydromorphone HCl 0.25 mg 08/25/18 23:09 08/28/18 10:11 Dilaudid IV 0.25 mg Q3H PRN Administration Pain, Moderate (4-6) Sodium Chloride 100 mls @ 999 mls/hr 08/26/18 16:39 Nacl 0.9% IV ELANA PRN Hypotension Insulin Human Lispro 0 unit 08/26/18 07:30 08/28/18 08:20 Humalog SUB-Q Not Given ACHS [facility] Protocol Labetalol HCl 300 mg 08/26/18 08:00 08/28/18 08:48 Normodyne PO 300 mg TID [facility] Administration Ondansetron HCl 4 mg 08/25/18 23:09 08/27/18 04:58 Zofran IV 4 mg Q8H PRN Administration Nausea And Vomiting Ondansetron HCl 4 mg 08/26/18 06:00 08/28/18 06:06 Zofran Odt PO 4 mg Q8HR [facility] Administration Oxycodone/Acetaminophen 1 tab 08/25/18 23:09 Percocet 5/325 PO Q6H PRN Pain, Moderate (4-6) Pantoprazole Sodium 40 mg 08/26/18 10:00 08/28/18 10:10 Protonix PO 40 mg BID TRUDI Administration Promethazine HCl 25 mg 08/25/18 23:15 Phenergan IA Q6HR PRN Vomiting Promethazine HCl 25 mg 08/25/18 23:15 Phenergan PO Q6HR PRN Nausea Sodium Chloride 10 ml 08/25/18 23:45 08/28/18 10:11 Sodium Chloride Flush Syringe 10 Ml IV 10 ml BID TRUDI Administration Sodium Chloride 10 ml 08/25/18 23:09 Sodium Chloride Flush Syringe 10 Ml IV PRN PRN LINE FLUSH Tramadol HCl 50 mg 08/25/18 23:15 Ultram PO Q6H PRN Pain, Moderate (4-6)
[2018-08-28] MEDS: BENADRYL PO PRN (21:22)
[2018-08-29] MEDS: DILAUDID IV PRN ×7 (00:31→21:28)
[2018-08-29] MEDS: APRESOLINE PO SCH ×3 (05:10→21:30)
[2018-08-29] MEDS: ZOFRAN ODT PO SCH ×3 (05:11→21:31)
[2018-08-29] MEDS: HumaLOG SUB-Q SCH ×4 (07:30→17:59)
[2018-08-29] MEDS: CATAPRES PO SCH ×3 (08:00→21:31)
[2018-08-29] MEDS: NORMODYNE PO SCH ×3 (08:00→21:30)
--- NOTE | 2018-08-29 08:55 | Progress Note ---
Assessment and Plan Impression * end-stage renal disease * Clotted AV graft * Uncontrolled hypertension * Anemia secondary to ESRD Recommendations * s/p fem vasc cath placement, hd q MWF, home once perm cath placed or successful thrombectomy * Adjust diet and meds for ESRD state * Procrit with dialysis * Binders with meals * Avoid nephrotoxins Subjective Date of service: 08/29/18 Principal diagnosis: Clotted ROU Access Interval history: resting well in bed today Objective - Exam Narrative Exam: General appearance: well-developed, well-nourished, appears stated age EENT: PERRL, mucous membranes moist Neck: no JVD, no thyromegaly, no carotid bruit, supple Respiratory: Present: Clear to Ascultation Cardiology: regular, normal heart rate, S1S2, no murmurs Gastrointestinal: normal, normoactive bowel sounds Integumentary: other (no edema. Right forearm AV graft. No bruit or thrill.) - Vital Signs Vital signs: Vital Signs - 12hr 08/28/18 08/28/18 08/28/18 21:23 21:53 22:00 Temperature Pulse Rate Respiratory 20 20 20 Rate Respiratory Rate [ Generalized] Blood Pressure O2 Sat by Pulse 95 Oximetry 08/28/18 08/29/18 08/29/18 23:29 00:31 01:01 Temperature 98.3 F Pulse Rate 91 H Respiratory 20 20 20 Rate Respiratory Rate [ Generalized] Blood Pressure 141/83 O2 Sat by Pulse 95 Oximetry 08/29/18 08/29/18 08/29/18 05:10 05:11 05:41 Temperature 97.9 F Pulse Rate 87 Respiratory 20 20 20 Rate Respiratory Rate [ Generalized] Blood Pressure 168/90 O2 Sat by Pulse 99 Oximetry 08/29/18 06:00 Temperature Pulse Rate Respiratory Rate Respiratory 20 Rate [ Generalized] Blood Pressure O2 Sat by Pulse Oximetry - Lab 08/26/18 06:26 08/27/18 07:20 Most recent lab results Calcium 8.2 mg/dL (8.4-10.2) L 08/27/18 07:20 Magnesium 2.00 mg/dL (1.7-2.3) 08/25/18 Unknown Medications & Allergies - Medications Allergies/Adverse Reactions: Allergies Fish Containing Products Allergy (Verified 07/10/18 17:56) Rash metformin Allergy (Verified 10/25/16 01:38) Hives metoclopramide HCl [From Reglan] Allergy (Verified 10/25/16 01:38) Hives prochlorperazine [From Compazine] Allergy (Verified 10/25/16 01:38) Hives prochlorperazine edisylate [From Compazine] Allergy (Verified 10/25/16 01:38) Hives prochlorperazine maleate [From Compazine] Allergy (Verified 10/25/16 01:38) Hives shellfish Allergy (Uncoded 07/30/18 12:26) Swelling Home Medications: Home Medications Medication Instructions Recorded Confirmed Last Taken Type traMADol [Ultram 50 MG tab] 50 mg PO Q6H PRN #20 tablet 07/30/18 08/27/18 08/23/18 Rx Apixaban [Eliquis] 2.5 mg PO Q12HR #60 tablet 08/04/18 08/27/18 08/23/18 Rx Aspirin [Aspirin BABY CHEW TAB] 81 mg PO QDAY #30 tab.chew 08/04/18 08/27/18 08/23/18 Rx AtorvaSTATin [Lipitor] 40 mg PO QHS #30 tablet 08/04/18 08/27/18 08/23/18 Rx Labetalol [Normodyne TAB] 300 mg PO TID #90 tablet 08/04/18 08/27/18 08/23/18 Rx Pantoprazole [Protonix TAB] 40 mg PO BID #60 tablet 08/04/18 08/27/18 08/23/18 Rx amLODIPine [Norvasc] 10 mg PO DAILY #30 tablet 08/04/18 08/27/18 08/23/18 Rx cloNIDine [Catapres] 0.2 mg PO TID #90 tablet 08/04/18 08/27/18 08/23/18 Rx hydrALAZINE [Apresoline TAB] 50 mg PO Q8HR #90 tablet 08/04/18 08/27/18 08/23/18 Rx Ondansetron [Zofran ODT TAB] 4 mg PO Q8HR #20 tab.rapdis 08/07/18 08/27/1811/06 Rx HYDROcodone/APAP 5-325 [[place] 1 - 2 each PO Q6HR PRN #14 tablet 08/08/18 08/27/1808/23/19 Rx 5-325 mg TAB] Promethazine [Phenergan SUPPOS] 25 mg [place] Q6HR PRN #10 supp.rect 08/08/18 08/27/18 08/23/18 Rx Promethazine [Phenergan TAB] 25 mg PO Q6HR PRN #20 tab 08/08/18 08/27/18/11/06 Rx Promethazine [Phenergan] 25 mg OR Q6HR PRN #30 supp.rect 08/23/18 08/27/18 08/23/18 Rx Active Medications: Generic Name Dose Route Start Last Admin Trade Name Freq PRN Reason Stop Dose Admin Acetaminophen 650 mg 08/25/18 23:09 Tylenol PO Q4H PRN Pain MILD(1-3)/Fever >100.5/CHAVES Amlodipine Besylate 10 mg 08/26/18 10:00 08/28/18 10:10 Norvasc PO 10 mg DAILY [facility] Administration Clonidine HCl 0.2 mg 08/26/18 08:00 08/28/18 21:21 Catapres PO 0.2 mg TID [facility] Administration Diphenhydramine HCl 25 mg 08/27/18 18:06 08/28/18 21:22 Benadryl PO 25 mg Q6H PRN Administration Itching Heparin Sodium (Porcine) 5,000 unit 08/25/18 23:15 08/28/18 21:29 Heparin SUB-Q 5,000 unit Q12HR [facility] Administration Hydralazine HCl 50 mg 08/26/18 06:00 08/29/18 05:10 Apresoline PO 50 mg Q8HR [facility] Administration Hydromorphone HCl 0.25 mg 08/25/18 23:09 08/29/18 05:11 Dilaudid IV 0.25 mg Q3H PRN Administration Pain, Moderate (4-6) Sodium Chloride 100 mls @ 999 mls/hr 08/26/18 16:39 Nacl 0.9% IV ELANA PRN Hypotension Insulin Human Lispro 0 unit 08/26/18 07:30 08/28/18 21:38 Humalog SUB-Q Not Given ACHS [facility] Protocol Labetalol HCl 300 mg 08/26/18 08:00 08/28/18 21:20 Normodyne PO 300 mg TID [facility] Administration Ondansetron HCl 4 mg 08/25/18 23:09 08/27/18 04:58 Zofran IV 4 mg Q8H PRN Administration Nausea And Vomiting Ondansetron HCl 4 mg 08/26/18 06:00 08/29/18 05:11 Zofran Odt PO 4 mg Q8HR [facility] Administration Oxycodone/Acetaminophen 1 tab 08/25/18 23:09 Percocet 5/325 PO Q6H PRN Pain, Moderate (4-6) Pantoprazole Sodium 40 mg 08/26/18 10:00 08/28/18 21:20 Protonix PO 40 mg BID [facility] Administration Promethazine HCl 25 mg 08/25/18 23:15 Phenergan OR Q6HR PRN Vomiting Promethazine HCl 25 mg 08/25/18 23:15 Phenergan PO Q6HR PRN Nausea Sodium Chloride 10 ml 08/25/18 23:45 08/28/18 21:22 Sodium Chloride Flush Syringe 10 Ml IV 10 ml BID [facility] Administration Sodium Chloride 10 ml 08/25/18 23:09 Sodium Chloride Flush Syringe 10 Ml IV PRN PRN LINE FLUSH Tramadol HCl 50 mg 08/25/18 23:15 Ultram PO Q6H PRN Pain, Moderate (4-6)
[2018-08-29] MEDS: HEPARIN SUB-Q SCH ×2 (09:47→21:47)
[2018-08-29] MEDS: SODIUM CHLORIDE FLUSH SYRINGE 10 ML IV SCH ×2 (09:59→21:32)
[2018-08-29] MEDS: PROTONIX PO SCH ×2 (10:00→21:31)
[2018-08-29] MEDS: NORVASC PO SCH (10:00)
[2018-08-29] MEDS: BENADRYL PO PRN (10:30)
--- NOTE | 2018-08-29 14:36 | Progress Note ---
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 No shortness of breath. Patient complains of chronic body pains. She was sent from the dialysis clinic for evaluation of blood pressure also. No fever or chills. she had a right upper extremity AV access placed one year ago and it is a forearm loop graft placed a year ago (1) Dialysis AV fistula malfunction- Thrombosed AV graft Current Visit: Yes Status: Acute Qualifiers: Encounter type: initial encounter Qualified Code(s): T82.590A - Other mechanical complication of surgically created arteriovenous fistula, initial encounter Plan to address problem: Vascular surgery consulted Thrombectomy and possible vascath Was unsuccessfull. Plan is for The patient to undergo revision of the arterial anastomosis surgically. 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 Possible creation of another of the AV graft. (2) Hypertensive emergency Current Visit: Yes Status: Acute Plan to address problem: Cont antihypertensives Better (3) CVA (cerebral vascular accident) Current Visit: No Status: Chronic Qualifiers: CVA mechanism: thrombosis Precerebral and cerebral artery: middle cerebral artery Laterality of affected vessel: right Qualified Code(s): I63.311 - Cerebral infarction due to thrombosis of right middle cerebral artery Plan to address problem: Supportive care (4) Diabetic gastroparesis Current Visit: No Status: Chronic Plan to address problem: Patient with Gastric pacemaker (5) HTN (hypertension) Current Visit: No Status: Chronic Qualifiers: Hypertension type: essential hypertension Plan to address problem: Cont antihypertensives (6) Secondary Coagulopathy Current Visit: No Status: Chronic Plan to address problem: Eliquis on hold for expected surgery in a day or 2 (7) Type 2 diabetes mellitus with diabetic chronic kidney disease Current Visit: No Status: Chronic Qualifiers: Chronic kidney disease stage: on chronic dialysis Plan to address problem: ADJUST MEDS (8) End stage renal disease on dialysis Current Visit: No Status: Chronic Plan to address problem: Cont HD (9) HLD (hyperlipidemia) Current Visit: Yes Status: Acute Qualifiers: Hyperlipidemia type: mixed hyperlipidemia Qualified Code(s): E78.2 - Mixed hyperlipidemia Plan to address problem: On Statins (10) DVT prophylaxis Current Visit: No Status: Acute Plan to address problem: Heparin 5000 Q12h plan discussed with nursing staff History Interval history: Patient is seen today for: Clotted AV graft Seen and examined at bedside; 24hour events reviewed; nursing staff ; no adverse overnight events reported to me; Denies any chest pain, nausea, vomiting, diarrhea. No fever noted blood pressure controlled. Hospitalist Physical - Physical exam Narrative exam: VITAL SIGNS: Reviewed. GENERAL: The patient appeared well nourished and normally developed. Vital signs as documented. HEAD: No signs of head trauma. EYES: Pupils are equal. Extraocular motions intact. EARS: Hearing grossly intact. MOUTH: Oropharynx is normal. NECK: No adenopathy, no JVD. CHEST: Chest with clear breath sounds bilaterally. No wheezes, rales, or rhonchi. CARDIAC: Regular rate and rhythm. S1 and S2, without murmurs, gallops, or rubs. VASCULAR: No Edema. Peripheral pulses normal and equal in all extremities. ABDOMEN: Soft, without detectable tenderness. No sign of distention. No kirt ound or guarding, and no masses palpated. Bowel Sounds normal. MUSCULOSKELETAL: Good range of motion of all major joints. Extremities without clubbing, cyanosis or edema. NEUROLOGIC EXAM: Alert and oriented x 3. No focal sensory or strength deficits. Speech normal. Follows commands. PSYCHIATRIC: Mood normal. SKIN: RIGHT UPPER EXT AV GRAFT - Constitutional Vitals: Temp Pulse Resp BP Pulse Ox 98.4 F 85 18 90/53 99 08/29/18 10:35 08/29/18 12:45 08/29/18 12:46 08/29/18 12:45 08/29/18 05:10 General appearance: Present: no acute distress, well-nourished Results - Labs CBC & Chem 7: 08/26/18 06:26 08/27/18 07:20 Labs: Laboratory Last Values WBC 8.6 K/mm3 (4.5-11.0) 08/26/18 06:26 RBC 3.11 M/mm3 (3.65-5.03) L 08/26/18 06:26 Hgb 9.1 gm/dl (10.1-14.3) L 08/26/18 06:26 Hct 29.3 % (30.3-42.9) L 08/26/18 06:26 MCV 94 fl (79-97) 08/26/18 06:26 MCH 29 pg (28-32) 08/26/18 06:26 MCHC 31 % (30-34) 08/26/18 06:26 RDW 17.1 % (13.2-15.2) H 08/26/18 06:26 Plt Count 391 K/mm3 (140-440) 08/26/18 06:26 Lymph % (Auto) 23.3 % (13.4-35.0) 08/26/18 06:26 [place] % (Auto) 6.8 % (0.0-7.3) 08/26/18 06:26 Eos % (Auto) 2.4 % (0.0-4.3) 08/26/18 06:26 Baso % (Auto) 0.6 % (0.0-1.8) 08/26/18 06:26 Lymph # 2.0 K/mm3 (1.2-5.4) 08/26/18 06:26 [place] # 0.6 K/mm3 (0.0-0.8) 08/26/18 06:26 Eos # 0.2 K/mm3 (0.0-0.4) 08/26/18 06:26 Baso # 0.1 K/mm3 (0.0-0.1) 08/26/18 06:26 Seg Neutrophils % 66.9 % (40.0-70.0) 08/26/18 06:26 Seg Neutrophils # 5.7 K/mm3 (1.8-7.7) 08/26/18 06:26 PT 12.3 Sec. (12.2-14.9) 08/25/18 Unknown INR 0.88 (0.87-1.13) 08/25/18 Unknown APTT 29.6 Sec. (24.2-36.6) 08/25/18 Unknown Sodium 140 mmol/L (137-145) 08/27/18 07:20 Potassium 3.9 mmol/L (3.6-5.0) 08/27/18 07:20 Chloride 100.2 mmol/L (98-107) 08/27/18 07:20 Carbon Dioxide 28 mmol/L (22-30) 08/27/18 07:20 Anion Gap 16 mmol/L 08/27/18 07:20 BUN 50 mg/dL (7-17) H 08/27/18 07:20 Creatinine 7.7 mg/dL (0.7-1.2) H 08/27/18 07:20 Estimated GFR 7 ml/min 08/27/18 07:20 BUN/Creatinine Ratio 6 % 08/27/18 07:20 Glucose 126 mg/dL (65-100) H 08/27/18 07:20 POC Glucose 156 (70-105) H 08/29/18 07:59 Hemoglobin A1c 6.8 % (4-6) H 08/26/18 06:26 Calcium 8.2 mg/dL (8.4-10.2) L 08/27/18 07:20 Magnesium 2.00 mg/dL (1.7-2.3) 08/25/18 Unknown Total Bilirubin 0.30 mg/dL (0.1-1.2) 08/26/18 06:26 AST 8 units/L (5-40) 08/26/18 06:26 ALT 6 units/L (7-56) L 08/26/18 06:26 Alkaline Phosphatase 90 units/L (35-129) 08/26/18 06:26 Total Protein 7.0 g/dL (6.3-8.2) 08/26/18 06:26 Albumin 3.4 g/dL (3.9-5) L 08/26/18 06:26 Albumin/Globulin Ratio 0.9 % 08/26/18 06:26 Nutrition/Malnutrition Assess - Dietary Evaluation Nutrition/Malnutrition Findings: Nutrition Notes Start: 08/27/18 16:17 Freq: Status: Active Protocol: Document 08/28/18 12:47 LM (Rec: 08/28/18 13:23 LM [id number]) Co-Sign 08/28/18 12:47 LP 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 Pt stated she has a good appetite and ate all of her breakfast this morning. Pt reported her ususal body weight is 193 lb and no recent weight changes. Pt requested Nepro. Burn Absent Trauma Absent #1 Nutrition Diagnosis Increased nutrient needs ( specify in comment below) Etiology Vascular access surgery and ESRD As Evidenced by Signs and Symptoms low Albumin 3.4 Is patient on ventilator? No Is Patient Ambulatory and/or Out of Bed No REE-([facility]-confined to bed) [phone] Additional Notes adj BW 71.8 kg Protein: 86-101g (1.2-1.4 g/kg ) Fluids: 1-1.5 L/day or per MD Nutrition Intervention Change Diet Order: Continue Renal diet Add Supplement/Snack (indicate name/kcal Nepro butter pecan once a day /protein ) Provides kCal: 425 Provides Protein (gm) 19 Goal #1 Meet at least 75% of energy and protein needs Anticipated Discharge Needs: Renal diet Follow-Up By: 08/31/18 Additional Comments F/U for PO/ONS intakes
[2018-08-30] MEDS: DILAUDID IV PRN ×6 (00:47→21:55)
[2018-08-30] MEDS: HumaLOG SUB-Q SCH ×5 (01:30→22:00)
[2018-08-30] MEDS: APRESOLINE PO SCH ×3 (06:19→21:50)
[2018-08-30] MEDS: ZOFRAN ODT PO SCH ×3 (06:19→21:54)
[2018-08-30 06:23] LABS: Hematocrit 24.8 % (30.3-42.9); Hemoglobin 7.9 gm/dl (10.1-14.3); Mean Corpuscular HGB Conc 32 % (30-34); Mean Corpuscular Volume 94 fl (79-97); Platelet Count 281 K/mm3 (140-440); Red Blood Count 2.63 M/mm3 (3.65-5.03); Red Cell Distribution Width 16.4 % (13.2-15.2)
[2018-08-30 06:40] LABS: Calcium 8.3 mg/dL (8.4-10.2)
[2018-08-30] MEDS: CATAPRES PO SCH ×3 (08:00→21:51)
[2018-08-30] MEDS: NORMODYNE PO SCH ×3 (08:00→21:52)
--- NOTE | 2018-08-30 08:29 | Progress Note ---
Hospitalist Physical - Physical exam Narrative exam: VITAL SIGNS: Reviewed. GENERAL: The patient appeared well nourished and normally developed. Vital signs as documented. HEAD: No signs of head trauma. EYES: Pupils are equal. Extraocular motions intact. EARS: Hearing grossly intact. MOUTH: Oropharynx is normal. NECK: No adenopathy, no JVD. CHEST: Chest with clear breath sounds bilaterally. No wheezes, rales, or rhonchi. CARDIAC: Regular rate and rhythm. S1 and S2, without murmurs, gallops, or rubs. VASCULAR: No Edema. Peripheral pulses normal and equal in all extremities. ABDOMEN: Soft, without detectable tenderness. No sign of distention. No rebound or guarding, and no masses palpated. Bowel Sounds normal. MUSCULOSKELETAL: Good range of motion of all major joints. Extremities without clubbing, cyanosis or edema. NEUROLOGIC EXAM: Alert and oriented x 3. No focal sensory or strength deficits. Speech normal. Follows commands. PSYCHIATRIC: Mood normal. SKIN: RIGHT UPPER EXT AV GRAFT - Constitutional Vitals: Temp Pulse Resp BP Pulse Ox 98.9 F 91 H 20 139/75 93 08/30/18 04:22 08/30/18 06:19 08/30/18 04:22 08/30/18 06:19 08/30/18 04:22 General appearance: Present: no acute distress, well-nourished Results - Labs CBC & Chem 7: 08/30/18 05:15 08/30/18 05:15 Labs: Laboratory Last Values WBC 8.0 K/mm3 (4.5-11.0) 08/30/18 05:15 RBC 2.63 M/mm3 (3.65-5.03) L 08/30/18 05:15 Hgb 7.9 gm/dl (10.1-14.3) L 08/30/18 05:15 Hct 24.8 % (30.3-42.9) L 08/30/18 05:15 MCV 94 fl (79-97) 08/30/18 05:15 MCH 30 pg (28-32) 08/30/18 05:15 MCHC 32 % (30-34) 08/30/18 05:15 RDW 16.4 % (13.2-15.2) H 08/30/18 05:15 Plt Count 281 K/mm3 (140-440) 08/30/18 05:15 Lymph % (Auto) 23.3 % (13.4-35.0) 08/26/18 06:26 [place] % (Auto) 6.8 % (0.0-7.3) 08/26/18 06:26 Eos % (Auto) 2.4 % (0.0-4.3) 08/26/18 06:26 Baso % (Auto) 0.6 % (0.0-1.8) 08/26/18 06:26 Lymph # 2.0 K/mm3 (1.2-5.4) 08/26/18 06:26 [place] # 0.6 K/mm3 (0.0-0.8) 08/26/18 06:26 Eos # 0.2 K/mm3 (0.0-0.4) 08/26/18 06:26 Baso # 0.1 K/mm3 (0.0-0.1) 08/26/18 06:26 Seg Neutrophils % 66.9 % (40.0-70.0) 08/26/18 06:26 Seg Neutrophils # 5.7 K/mm3 (1.8-7.7) 08/26/18 06:26 PT 12.3 Sec. (12.2-14.9) 08/25/18 Unknown INR 0.88 (0.87-1.13) 08/25/18 Unknown APTT 29.6 Sec. (24.2-36.6) 08/25/18 Unknown Sodium 139 mmol/L (137-145) 08/30/18 05:15 Potassium 3.6 mmol/L (3.6-5.0) 08/30/18 05:15 Chloride 97.8 mmol/L (98-107) L 08/30/18 05:15 Carbon Dioxide 28 mmol/L (22-30) 08/30/18 05:15 Anion Gap 17 mmol/L 08/30/18 05:15 BUN 16 mg/dL (7-17) 08/30/18 05:15 Creatinine 3.4 mg/dL (0.7-1.2) H D 08/30/18 05:15 Estimated GFR 18 ml/min 08/30/18 05:15 BUN/Creatinine Ratio 5 % 08/30/18 05:15 Glucose 150 mg/dL (65-100) H 08/30/18 05:15 POC Glucose 164 (70-105) H 08/30/18 08:12 Hemoglobin A1c 6.8 % (4-6) H 08/26/18 06:26 Calcium 8.3 mg/dL (8.4-10.2) L 08/30/18 05:15 Magnesium 2.00 mg/dL (1.7-2.3) 08/25/18 Unknown Total Bilirubin 0.30 mg/dL (0.1-1.2) 08/26/18 06:26 AST 8 units/L (5-40) 08/26/18 06:26 ALT 6 units/L (7-56) L 08/26/18 06:26 Alkaline Phosphatase 90 units/L (35-129) 08/26/18 06:26 Total Protein 7.0 g/dL (6.3-8.2) 08/26/18 06:26 Albumin 3.4 g/dL (3.9-5) L 08/26/18 06:26 Albumin/Globulin Ratio 0.9 % 08/26/18 06:26 Nutrition/Malnutrition Assess - Dietary Evaluation Nutrition/Malnutrition Findings: Nutrition Notes Start: 08/27/18 16:17 Freq: Status: Active Protocol: Document 08/28/18 12:47 LM (Rec: 08/28/18 13:23 LM [id number]) Co-Sign 08/28/18 12:47 LP 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 Pt stated she has a good appetite and ate all of her breakfast this morning. Pt reported her ususal body weight is 193 lb and no recent weight changes. Pt requested Nepro. Burn Absent Trauma Absent #1 Nutrition Diagnosis Increased nutrient needs ( specify in comment below) Etiology Vascular access surgery and ESRD As Evidenced by Signs and Symptoms low Albumin 3.4 Is patient on ventilator? No Is Patient Ambulatory and/or Out of Bed No REE-([place]-confined to bed) [phone] Additional Notes adj BW 71.8 kg Protein: 86-101g (1.2-1.4 g/kg ) Fluids: 1-1.5 L/day or per MD Nutrition Intervention Change Diet Order: Continue Renal diet Add Supplement/Snack (indicate name/kcal Nepro butter pecan once a day /protein ) Provides kCal: 425 Provides Protein (gm) 19 Goal #1 Meet at least 75% of energy and protein needs Anticipated Discharge Needs: Renal diet Follow-Up By: 08/31/18 Additional Comments F/U for PO/ONS intakes
--- NOTE | 2018-08-30 09:00 | Progress Note ---
Assessment and Plan Impression * end-stage renal disease * Clotted AV graft * Uncontrolled hypertension * type 2 DM * Anemia secondary to ESRD Recommendations * s/p fem vasc cath placement, hd q MWF, home once perm cath placed or successful thrombectomy * Adjust diet and meds for ESRD state * Procrit with dialysis * Binders with meals * Avoid nephrotoxins Subjective Date of service: 08/30/18 Principal diagnosis: Clotted ROU Access Interval history: resting well in bed today Objective - Exam Narrative Exam: General appearance: well-developed, well-nourished, appears stated age EENT: PERRL, mucous membranes moist Neck: no JVD, no thyromegaly, no carotid bruit, supple Respiratory: Present: Clear to Ascultation Cardiology: regular, normal heart rate, S1S2, no murmurs Gastrointestinal: normal, normoactive bowel sounds Integumentary: other (no edema. Right forearm AV graft. No bruit or thrill.) - Vital Signs Vital signs: Vital Signs - 12hr 08/29/18 08/29/18 08/29/18 21:30 21:31 22:00 Temperature Pulse Rate 92 H 92 H Pulse Rate [ 91 H Apical] Respiratory 24 Rate Blood Pressure 153/77 153/77 O2 Sat by Pulse 100 Oximetry 08/29/18 08/30/18 08/30/18 23:11 04:22 06:19 Temperature 98.1 F 98.9 F Pulse Rate 91 H 91 H 91 H Pulse Rate [ Apical] Respiratory 24 20 Rate Blood Pressure 157/85 139/75 139/75 O2 Sat by Pulse 100 93 Oximetry - Lab 08/30/18 05:15 08/30/18 05:15 Most recent lab results Calcium 8.3 mg/dL (8.4-10.2) L 08/30/18 05:15 Magnesium 2.00 mg/dL (1.7-2.3) 08/25/18 Unknown Medications & Allergies - Medications Allergies/Adverse Reactions: Allergies Fish Containing Products Allergy (Verified 07/10/18 17:56) Rash metformin Allergy (Verified 10/25/16 01:38) Hives metoclopramide HCl [From Reglan] Allergy (Verified 10/25/16 01:38) Hives prochlorperazine [From Compazine] Allergy (Verified 10/25/16 01:38) Hives prochlorperazine edisylate [From Compazine] Allergy (Verified 10/25/16 01:38) Hives prochlorperazine maleate [From Compazine] Allergy (Verified 10/25/16 01:38) Hives shellfish Allergy (Uncoded 07/30/18 12:26) Swelling Home Medications: Home Medications Medication Instructions Recorded Confirmed Last Taken Type traMADol [Ultram 50 MG tab] 50 mg PO Q6H PRN #20 tablet 07/30/18 08/27/18 08/23/18 Rx Apixaban [Eliquis] 2.5 mg PO Q12HR #60 tablet 08/04/18 08/27/18 08/23/18 Rx Aspirin [Aspirin BABY CHEW TAB] 81 mg PO QDAY #30 tab.chew 08/04/18 08/27/18 08/23/18 Rx AtorvaSTATin [Lipitor] 40 mg PO QHS #30 tablet 08/04/18 08/27/18 08/23/18 Rx Labetalol [Normodyne TAB] 300 mg PO TID #90 tablet 08/04/18 08/27/18 08/23/18 Rx Pantoprazole [Protonix TAB] 40 mg PO BID #60 tablet 08/04/18 08/27/18 08/23/18 Rx amLODIPine [Norvasc] 10 mg PO DAILY #30 tablet 08/04/18 08/27/18 08/23/18 Rx cloNIDine [Catapres] 0.2 mg PO TID #90 tablet 08/04/18 08/27/18 08/23/18 Rx hydrALAZINE [Apresoline TAB] 50 mg PO Q8HR #90 tablet 08/04/18 08/27/18 08/23/18 Rx Ondansetron [Zofran ODT TAB] 4 mg PO Q8HR #20 tab.rapdis 08/07/18 08/27/18 08/23/18 Rx HYDROcodone/APAP 5-325 [[place] 1 - 2 each PO Q6HR PRN #14 tablet 08/08/18 08/27/18 08/23/18 Rx 5-325 mg TAB] Promethazine [Phenergan SUPPOS] 25 mg IN Q6HR PRN #10 supp.rect 08/08/18 08/27/18 08/23/18 Rx Promethazine [Phenergan TAB] 25 mg PO Q6HR PRN #20 tab 08/08/18 08/27/18 08/23/18 Rx Promethazine [Phenergan] 25 mg IN Q6HR PRN #30 supp.rect 08/23/18 08/27/18 08/23/18 Rx Active Medications: Generic Name Dose Route Start Last Admin Trade Name Freq PRN Reason Stop Dose Admin Acetaminophen 650 mg 08/25/18 23:09 Tylenol PO Q4H PRN Pain MILD(1-3)/Fever >100.5/CHAVES Amlodipine Besylate 10 mg 08/26/18 10:00 08/29/18 10:00 Norvasc PO Not Given DAILY [facility] Clonidine HCl 0.2 mg 08/26/18 08:00 08/30/18 08:00 Catapres PO Not Given TID TRUDI Diphenhydramine HCl 25 mg 08/27/18 18:06 08/29/18 10:30 Benadryl PO 25 mg Q6H PRN Administration Itching Heparin Sodium (Porcine) 5,000 unit 08/25/18 23:15 08/29/18 21:47 Heparin SUB-Q Not Given Q12HR [facility] Hydralazine HCl 50 mg 08/26/18 06:00 08/30/18 06:19 Apresoline PO 50 mg Q8HR TRUDI Administration Hydromorphone HCl 0.25 mg 08/25/18 23:09 08/30/18 08:32 Dilaudid IV 0.25 mg Q3H PRN Administration Pain, Moderate (4-6) Sodium Chloride 100 mls @ 999 mls/hr 08/26/18 16:39 Nacl 0.9% IV ELANA PRN Hypotension Insulin Human Lispro 0 unit 08/26/18 07:30 08/30/18 07:30 Humalog SUB-Q Not Given ACHS [facility] Protocol Labetalol HCl 300 mg 08/26/18 08:00 08/30/18 08:00 Normodyne PO Not Given TID TRUDI Ondansetron HCl 4 mg 08/25/18 23:09 08/27/18 04:58 Zofran IV 4 mg Q8H PRN Administration Nausea And Vomiting Ondansetron HCl 4 mg 08/26/18 06:00 08/30/18 06:19 Zofran Odt PO 4 mg Q8HR TRUDI Administration Oxycodone/Acetaminophen 1 tab 08/25/18 23:09 Percocet 5/325 PO Q6H PRN Pain, Moderate (4-6) Pantoprazole Sodium 40 mg 08/26/18 10:00 08/29/18 21:31 Protonix PO 40 mg BID TRUDI Administration Promethazine HCl 25 mg 08/25/18 23:15 Phenergan IN Q6HR PRN Vomiting Sodium Chloride 10 ml 08/25/18 23:45 08/29/18 21:32 Sodium Chloride Flush Syringe 10 Ml IV 10 ml BID TRUDI Administration Sodium Chloride 10 ml 08/25/18 23:09 Sodium Chloride Flush Syringe 10 Ml IV PRN PRN LINE FLUSH Tramadol HCl 50 mg 08/25/18 23:15 Ultram PO Q6H PRN Pain, Moderate (4-6)
[2018-08-30] MEDS: SODIUM CHLORIDE FLUSH SYRINGE 10 ML IV SCH ×2 (10:00→21:56)
[2018-08-30] MEDS: HEPARIN SUB-Q SCH ×2 (10:59→22:00)
[2018-08-30] MEDS: NORVASC PO SCH (11:00)
[2018-08-30] MEDS: PROTONIX PO SCH ×2 (11:00→21:51)
--- NOTE | 2018-08-30 11:20 | Progress Note ---
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 No shortness of breath. Patient complains of chronic body pains. She was sent from the dialysis clinic for evaluation of blood pressure also. No fever or chills. she had a right upper extremity AV access placed one year ago and it is a forearm loop graft placed a year ago (1) Dialysis AV fistula malfunction- Thrombosed AV graft Current Visit: Yes Status: Acute Qualifiers: Encounter type: initial encounter Qualified Code(s): T82.590A - Other mechanical complication of surgically created arteriovenous fistula, initial encounter Plan to address problem: Vascular surgery consulted Thrombectomy and possible vascath Was unsuccessfull. Plan is for The patient to undergo revision of the arterial anastomosis surgically. 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 Possible creation of another of the AV graft. (2) Hypertensive emergency Current Visit: Yes Status: Acute Plan to address problem: Cont antihypertensives Better (3) CVA (cerebral vascular accident) Current Visit: No Status: Chronic Qualifiers: CVA mechanism: thrombosis Precerebral and cerebral artery: middle cerebral artery Laterality of affected vessel: right Qualified Code(s): I63.311 - Cerebral infarction due to thrombosis of right middle cerebral artery WITH RESIDUAL LEFT HEMAPLEGIA Plan to address problem: Supportive care (4) Diabetic gastroparesis Current Visit: No Status: Chronic Plan to address problem: Patient with Gastric pacemaker (5) HTN (hypertension) Current Visit: No Status: Chronic Qualifiers: Hypertension type: essential hypertension Plan to address problem: Cont antihypertensives (6) Secondary Coagulopathy Current Visit: No Status: Chronic Plan to address problem: Eliquis on hold for expected surgery in a day or 2 (7) Type 2 diabetes mellitus with diabetic chronic kidney disease Current Visit: No Status: Chronic Qualifiers: Chronic kidney disease stage: on chronic dialysis Plan to address problem: ADJUST MEDS (8) End stage renal disease on dialysis Current Visit: No Status: Chronic Plan to address problem: Cont HD (9) HLD (hyperlipidemia) Current Visit: Yes Status: Acute Qualifiers: Hyperlipidemia type: mixed hyperlipidemia Qualified Code(s): E78.2 - Mixed hyperlipidemia Plan to address problem: On Statins (10) DVT prophylaxis Current Visit: No Status: Acute Plan to address problem: Heparin 5000 Q12h plan discussed with nursing staff History Interval history: Patient is seen today for: Clotted AV graft Seen and examined at bedside; 24hour events reviewed; nursing staff ; no adverse overnight events reported to me; Denies any chest pain, nausea, vomiting, diarrhea. WANTS BETTER PAIN CONTROL No fever noted blood pressure controlled. Hospitalist Physical - Physical exam Narrative exam: VITAL SIGNS: Reviewed. GENERAL: The patient appeared well nourished and normally developed. Vital signs as documented. HEAD: No signs of head trauma. EYES: Pupils are equal. Extraocular motions intact. EARS: Hearing grossly intact. MOUTH: Oropharynx is normal. NECK: No adenopathy, no JVD. CHEST: Chest with clear breath sounds bilaterally. No wheezes, rales, or rhonchi. CARDIAC: Regular rate and rhythm. S1 and S2, without murmurs, gallops, or rubs. VASCULAR: No Edema. Peripheral pulses normal and equal in all extremities. ABDOMEN: Soft, without detectable tenderness. No sign of distention. No rebound or guarding, and no masses palpated. Bowel Sounds normal. MUSCULOSKELETAL: Good range of motion of all major joints. Extremities without clubbing, cyanosis or edema. NEUROLOGIC EXAM: Alert and oriented x 3. left sided paresis-POA. Speech normal. Follows commands. PSYCHIATRIC: Mood normal. SKIN: RIGHT UPPER EXT AV GRAFT - Constitutional Vitals: Temp Pulse Resp BP Pulse Ox 98.9 F 91 H 20 139/75 93 08/30/18 04:22 08/30/18 06:19 08/30/18 04:22 08/30/18 06:19 08/30/18 04:22 General appearance: Present: no acute distress, well-nourished Results - Labs CBC & Chem 7: 08/30/18 05:15 08/30/18 05:15 Labs: Laboratory Last Values WBC 8.0 K/mm3 (4.5-11.0) 08/30/18 05:15 RBC 2.63 M/mm3 (3.65-5.03) L 08/30/18 05:15 Hgb 7.9 gm/dl (10.1-14.3) L 08/30/18 05:15 Hct 24.8 % (30.3-42.9) L 08/30/18 05:15 MCV 94 fl (79-97) 08/30/18 05:15 MCH 30 pg (28-32) 08/30/18 05:15 MCHC 32 % (30-34) 08/30/18 05:15 RDW 16.4 % (13.2-15.2) H 08/30/18 05:15 Plt Count 281 K/mm3 (140-440) 08/30/18 05:15 Lymph % (Auto) 23.3 % (13.4-35.0) 08/26/18 06:26 [place] % (Auto) 6.8 % (0.0-7.3) 08/26/18 06:26 Eos % (Auto) 2.4 % (0.0-4.3) 08/26/18 06:26 Baso % (Auto) 0.6 % (0.0-1.8) 08/26/18 06:26 Lymph # 2.0 K/mm3 (1.2-5.4) 08/26/18 06:26 [place] # 0.6 K/mm3 (0.0-0.8) 08/26/18 06:26 Eos # 0.2 K/mm3 (0.0-0.4) 08/26/18 06:26 Baso # 0.1 K/mm3 (0.0-0.1) 08/26/18 06:26 Seg Neutrophils % 66.9 % (40.0-70.0) 08/26/18 06:26 Seg Neutrophils # 5.7 K/mm3 (1.8-7.7) 08/26/18 06:26 PT 12.3 Sec. (12.2-14.9) 08/25/18 Unknown INR 0.88 (0.87-1.13) 08/25/18 Unknown APTT 29.6 Sec. (24.2-36.6) 08/25/18 Unknown Sodium 139 mmol/L (137-145) 08/30/18 05:15 Potassium 3.6 mmol/L (3.6-5.0) 08/30/18 05:15 Chloride 97.8 mmol/L (98-107) L 08/30/18 05:15 Carbon Dioxide 28 mmol/L (22-30) 08/30/18 05:15 Anion Gap 17 mmol/L 08/30/18 05:15 BUN 16 mg/dL (7-17) 08/30/18 05:15 Creatinine 3.4 mg/dL (0.7-1.2) H D 08/30/18 05:15 Estimated GFR 18 ml/min 08/30/18 05:15 BUN/Creatinine Ratio 5 % 08/30/18 05:15 Glucose 150 mg/dL (65-100) H 08/30/18 05:15 POC Glucose 164 (70-105) H 08/30/18 08:12 Hemoglobin A1c 6.8 % (4-6) H 08/26/18 06:26 Calcium 8.3 mg/dL (8.4-10.2) L 08/30/18 05:15 Magnesium 2.00 mg/dL (1.7-2.3) 08/25/18 Unknown Total Bilirubin 0.30 mg/dL (0.1-1.2) 08/26/18 06:26 AST 8 units/L (5-40) 08/26/18 06:26 ALT 6 units/L (7-56) L 08/26/18 06:26 Alkaline Phosphatase 90 units/L (35-129) 08/26/18 06:26 Total Protein 7.0 g/dL (6.3-8.2) 08/26/18 06:26 Albumin 3.4 g/dL (3.9-5) L 08/26/18 06:26 Albumin/Globulin Ratio 0.9 % 08/26/18 06:26 Nutrition/Malnutrition Assess - Dietary Evaluation Nutrition/Malnutrition Findings: Nutrition Notes Start: 08/27/18 16:17 Freq: Status: Active Protocol: Document 08/28/18 12:47 LM (Rec: 08/28/18 13:23 LM [id number]) Co-Sign 08/28/18 12:47 LP Nutrition Notes 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 Pt stated she has a good appetite and ate all of her breakfast this morning. Pt reported her ususal body weight is 193 lb and no recent weight changes. Pt requested Nepro. Burn Absent Trauma Absent #1 Nutrition Diagnosis Increased nutrient needs ( specify in comment below) Etiology Vascular access surgery and ESRD As Evidenced by Signs and Symptoms low Albumin 3.4 Is patient on ventilator? No Is Patient Ambulatory and/or Out of Bed No REE-([facility]-confined to bed) [phone] Additional Notes adj BW 71.8 kg Protein: 86-101g (1.2-1.4 g/kg ) Fluids: 1-1.5 L/day or per MD Nutrition Intervention Change Diet Order: Continue Renal diet Add Supplement/Snack (indicate name/kcal Nepro butter pecan once a day /protein ) Provides kCal: 425 Provides Protein (gm) 19 Goal #1 Meet at least 75% of energy and protein needs Anticipated Discharge Needs: Renal diet Follow-Up By: 08/31/18 Additional Comments F/U for PO/ONS intakes - Attestation Statement I have reviewed and agreed w/ Malnutrition eval & tx plan: Yes
[2018-08-30] MEDS: BENADRYL PO PRN (21:53)
[2018-08-31] MEDS ORDERED: ZOFRAN IV PRN (00:49)
[2018-08-31] MEDS ORDERED: NACL 0.9% 1000 ML 1,000 ML IV SCH (01:00)
[2018-08-31] MEDS ORDERED: VERSED IV NR (01:00)
[2018-08-31] MEDS: DILAUDID IV PRN ×5 (01:58→17:52)
[2018-08-31] MEDS: SODIUM CHLORIDE FLUSH SYRINGE 10 ML IV PRN ×2 (02:00→06:00)
[2018-08-31] MEDS: APRESOLINE PO SCH ×3 (06:35→22:45)
[2018-08-31] MEDS: ZOFRAN ODT PO SCH ×2 (06:36→16:27)
[2018-08-31] MEDS ORDERED: MARCAINE-EPI 0.5%-1:200,000 INFILTRATI ONE ×2 (06:54→09:26)
[2018-08-31] MEDS ORDERED: RIFADIN ONE (06:54)
[2018-08-31] MEDS ORDERED: HEPARIN 10,000 UNITS/10 ML ONE (06:54)
[2018-08-31] MEDS ORDERED: NACL 0.9% 500 ML 500 ML ONE (06:54)
[2018-08-31] MEDS ORDERED: NACL ONE (06:54)
--- NOTE | 2018-08-31 07:16 | Anesthesia Day of Surgery ---
Anesthesia Day of Surgery - Day of Surgery Patient Examined: Yes Patient H&P Reviewed: Yes Patient is NPO: Yes
--- NOTE | 2018-08-31 07:19 | Anesthesia Consultation ---
Anesthesia Consult and Med Hx Date of service: 08/31/18 - Airway Anesthetic Teeth Evaluation: Poor ROM Head & Neck: Adequate Mental/Hyoid Distance: Adequate Mallampati Class: Class III Intubation Access Assessment: Possibly Difficult - Pulmonary Exam CTA: Yes - Cardiac Exam Cardiac Exam: RRR - Pre-Operative Health Status ASA Pre-Surgery Classification: ASA3 Proposed Anesthetic Plan: General (RSI with SUCC, K 3.6 yesterday,land land - several CVA's, carotids clear, no CAD, EKG good, denies SOB, HTN, DM, Nausea and Vomiting this AM) - Pulmonary Hx Smoking: Yes Hx Asthma: No COPD: No Hx Pneumonia: No - Cardiovascular System Hx Hypertension: Yes Hx Pacemaker: Yes (gastric) - Central Nervous System CVA: Yes Hx Psychiatric Problems: No - Endocrine Hx Renal Disease: Yes (ESRD, HD --) Hx End Stage Renal Disease: Yes - Hematic Hx Anemia: Yes Hx Sickle Cell Disease: No - Other Systems Hx Cancer: No
[2018-08-31] MEDS: PEPCID IV NR ×2 (07:20→07:25)
[2018-08-31] MEDS ORDERED: QUELICIN ONE (07:24)
[2018-08-31] MEDS ORDERED: ZEMURON IV ONE (07:24)
[2018-08-31] MEDS ORDERED: XYLOCAINE MPF 2% ONE (07:24)
[2018-08-31] MEDS ORDERED: DIPRIVAN 10 MG/ML IV ONE (07:24)
[2018-08-31] MEDS ORDERED: SUBLIMAZE ONE ×2 (07:25→13:12)
[2018-08-31] MEDS ORDERED: NEO SYNEPHRINE ONE (07:28)
[2018-08-31] MEDS: HumaLOG SUB-Q SCH ×3 (08:40→16:37)
[2018-08-31] MEDS: CATAPRES PO SCH ×2 (08:41→14:00)
[2018-08-31] MEDS: NORMODYNE PO SCH ×2 (08:41→14:00)
[2018-08-31] MEDS ORDERED: NACL 0.9% 500 ML 500 ML IV NR (09:00)
--- NOTE | 2018-08-31 09:22 | Discharge Summary ---
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 No shortness of breath. Patient complains of chronic body pains. She was sent from the dialysis clinic for evaluation of blood pressure also. No fever or chills. she had a right upper extremity AV access placed one year ago and it is a forearm loop graft placed a year ago (1) Dialysis AV fistula malfunction- Thrombosed AV graft Current Visit: Yes Status: Acute Qualifiers: Encounter type: initial encounter Qualified Code(s): T82.590A - Other mechanical complication of surgically created arteriovenous fistula, initial encounter Plan to address problem: Vascular surgery consulted Thrombectomy and possible vascath Was unsuccessfull. Plan is for The patient to undergo revision of the arterial anastomosis surgically. 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 Possible creation of another of the AV graft. (2) Hypertensive emergency Current Visit: Yes Status: Acute Plan to address problem: Cont antihypertensives Better (3) CVA (cerebral vascular accident) Current Visit: No Status: Chronic Qualifiers: CVA mechanism: thrombosis Precerebral and cerebral artery: middle cerebral artery Laterality of affected vessel: right Qualified Code(s): I63.311 - Cerebral infarction due to thrombosis of right middle cerebral artery WITH RESIDUAL LEFT HEMAPLEGIA Plan to address problem: Supportive care (4) Diabetic gastroparesis Current Visit: No Status: Chronic Plan to address problem: Patient with Gastric pacemaker (5) HTN (hypertension) Current Visit: No Status: Chronic Qualifiers: Hypertension type: essential hypertension Plan to address problem: Cont antihypertensives (6) Secondary Coagulopathy Current Visit: No Status: Chronic Plan to address problem: Eliquis on hold for expected surgery in a day or 2 (7) Type 2 diabetes mellitus with diabetic chronic kidney disease Current Visit: No Status: Chronic Qualifiers: Chronic kidney disease stage: on chronic dialysis Plan to address problem: ?hx. In anycase Diet controlled (8) End stage renal disease on dialysis Current Visit: No Status: Chronic Plan to address problem: Cont HD (9) HLD (hyperlipidemia) Current Visit: Yes Status: Acute Qualifiers: Hyperlipidemia type: mixed hyperlipidemia Qualified Code(s): E78.2 - Mixed hyperlipidemia Plan to address problem: On Statins Disposition: [id number]/TX-06 HOME UNDER HOME HLTH Time spent for discharge: 35 mins Exam - Constitutional Vitals: Temp Pulse Resp BP Pulse Ox 97.3 F L 89 20 118/57 97 08/31/18 04:48 08/31/18 04:48 08/31/18 04:48 08/31/18 04:48 08/31/18 04:48 Plan Activity: advance as tolerated, fall precautions Diet: diabetic, renal Special Instructions: record daily weights, record daily BP diary, record blood sugar diary Follow up with: HAMIDA PINA MD [Primary Care Provider] - 3-5 Days ERLINDA HERNANDEZ MD [Staff Physician] - 7 Days
[2018-08-31] MEDS ORDERED: NACL 0.9% IR ONE (09:28)
[2018-08-31] MEDS ORDERED: HEPARIN 10,000 UNITS/10 ML 2,000 UNIT in NACL 0.9% 500 ML 500 ML IR ONE (09:29)
[2018-08-31] MEDS ORDERED: ZOFRAN ONE (09:49)
[2018-08-31] MEDS: NORVASC PO SCH (10:00)
[2018-08-31] MEDS: HEPARIN SUB-Q SCH (10:00)
[2018-08-31] MEDS ORDERED: DILAUDID ONE (10:40)
[2018-08-31] MEDS ORDERED: ANCEF/STERILE WATER 2 GM/20 ML IV NR (11:00)
[2018-08-31] MEDS ORDERED: NACL 0.9% 1000 ML 1,000 ML ONE (12:37)
--- NOTE | 2018-08-31 13:29 | Operative Report ---
Operative Report Operative Report: Operative note: Date: 08/31/2018 Preoperative diagnosis: Endstage renal disease on hemodialysis Postoperative diagnosis: Same. Operation: Right arm AV graft revision. Open thrombectomy of right forearm loop graft. Surgeon: January Guerrero. Asst.:none Anesthesia: Gen. EBL: Less than 50 mL Findings: Significant amount of soft thrombosis in the forearm loop AV graft. Brachial artery with surrounding adhesions. At the end of procedure graft with thrill and radial pulse present. Indications: 37-year-old female with end-stage renal disease and thrombosed right forearm loop graft that previously was attempted percutaneous thrombectomy. At that time and was found to have arterial anastomotic failure as a main culprit of the graft thrombosis. As a next patient recommended to have AV graft revision. All risks, benefits and alternatives of procedure including the usual AV graft creation discussed with patient and she chose to proceed and signed informed consent. Operative details: Patient was brought to the operating room and placed in supine position with left arm on an arm table. Ultrasound was performed locating brachial artery and AV graft connections. We'll brachial artery site for possible revision was marked and skin. Right arm was then prepped and draped in sterile fashion. Timeout was performed and all team members in agreement. First incision was created over arterial portion of the AV graft in a horizontal fashion with 15 blade and carried down with electrocautery. Graft portion was dissected and taken on vessel loop. Graftotomy was made using 11 blade and extended with Patel scissors. #5 Natalie was passed multiple times into venous portion and soft clot was delivered until no more and small venous flow identified. Given this portion was clamped with DeBakey clamp. Second incision was created with 15 blade over medial side of elbow crease in vertical fashion and carried down with electrocautery. Although, there is no scars at the area of dissection, there were significant adhesions around brachial artery that required tedious dissection. There were multiple branches crossing from the artery. Small branches were ligated and divided. With initially. As significant arterial branch just superior to the artery. The branch and the artery was taken on vessel loops proximally and distally. 4-7 mm propatent graft was tunneled from graftotomy site to arterial dissection portion. Patient was heparinized with 3000 units of heparin before arterial control. Initially I created anastomosis performing arteriotomy with 11 blade and Patel scissors. However there was no blood flow in the branch. That anastomosis was taken down and then anastomosed to the main brachial artery using 6-0 Prolene in a circumferential fashion. It was flushed before completion of anastomosis. Now graft was clamped at the arterial portion and the other and truncated for graft to graft anastomosis. Another thrombectomy was performed to make sure there is patency of the loop graft. The loop graft was truncated at the dissected portion and using 5-0 HS 7 Prolene it was anastomosed in a circumferential fashion. Everything was flushed before completion as well as another thrombectomy performed confirming patency of the residual graft. After completion everything was checked for hemostasis. Necessary repair stitches were placed. Incisions were irrigated with saline. Local anesthetic was injected. Thrill was appreciated as well as radial pulse. Incisions were closed in 2 layers with Vicryl and Monocryl. Dermabond was applied. Mucosa and sponge counts were correct. Patient tolerated procedure well and was transferred to PACU in stable condition. .
--- NOTE | 2018-08-31 13:31 | Event Note ---
Date: 08/31/18 Open thrombectomy and revision of right forearm loop AV graft performed. Confirm successful dialysis before removal of femoral Vas-Cath.
[2018-08-31] MEDS: ZOFRAN IV PRN ×2 (14:10→16:43)
--- NOTE | 2018-08-31 14:58 | Post Anesthesia Evaluation ---
- Post Anesthesia Evaluation Patient Participated: Yes Airway Patent: Yes Stable Respiratory Function: Yes Nausea/Vomiting: No Temp > 96.8F: Yes Pain Manageable: Yes Adequeate Hydration: Yes Anesthesia Complications: No
[2018-08-31] MEDS: PROTONIX PO SCH (16:27)
[2018-08-31] MEDS: SODIUM CHLORIDE FLUSH SYRINGE 10 ML IV SCH (16:27)
--- NOTE | 2018-08-31 16:29 | Progress Note ---
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 No shortness of breath. Patient complains of chronic body pains. She was sent from the dialysis clinic for evaluation of blood pressure also. No fever or chills. she had a right upper extremity AV access placed one year ago and it is a forearm loop graft placed a year ago (1) Anemia Give 2 UNITS PRBC This will go on to the late hours of the night planned discharge held today and patient can be discharged early in the am (2)Dialysis AV fistula malfunction- Thrombosed AV graft Current Visit: Yes Status: Acute Qualifiers: Encounter type: initial encounter Qualified Code(s): T82.590A - Other mechanical complication of surgically created arteriovenous fistula, initial encounter Plan to address problem: Vascular surgery consulted Thrombectomy and possible vascath Was unsuccessful. Underwent and open thrombectomy of the right upper ext and right AV graft revision (3) Hypertensive emergency Current Visit: Yes Status: Acute Plan to address problem: Cont antihypertensives Better (4) Diabetic gastroparesis Current Visit: No Status: Chronic Plan to address problem: Patient with Gastric pacemaker (5) HTN (hypertension) Current Visit: No Status: Chronic Qualifiers: Hypertension type: essential hypertension Plan to address problem: Cont antihypertensives (6) Secondary Coagulopathy Current Visit: No Status: Chronic Plan to address problem: Eliquis on hold for expected surgery in a day or 2 (7) Type 2 diabetes mellitus with diabetic chronic kidney disease Current Visit: No Status: Chronic Qualifiers: Chronic kidney disease stage: on chronic dialysis Plan to address problem: ADJUST MEDS (8) End stage renal disease on dialysis Current Visit: No Status: Chronic Plan to address problem: Cont HD (9) HLD (hyperlipidemia) Current Visit: Yes Status: Acute Qualifiers: Hyperlipidemia type: mixed hyperlipidemia Qualified Code(s): E78.2 - Mixed hyperlipidemia Plan to address problem: On Statins (10)CVA (cerebral vascular accident) Current Visit: No Status: Chronic Qualifiers: CVA mechanism: thrombosis Precerebral and cerebral artery: middle cerebral artery Laterality of affected vessel: right Qualified Code(s): I63.311 - Cerebral infarction due to thrombosis of right middle cerebral artery WITH RESIDUAL LEFT HEMAPLEGIA Plan to address problem: Supportive care (11) DVT prophylaxis Current Visit: No Status: Acute Plan to address problem: Heparin 5000 Q12h plan discussed with nursing staff History Interval history: Patient is seen today for: Clotted AV graft Seen and examined at bedside; 24hour events reviewed; nursing staff ; no adverse overnight events reported to me; Denies any chest pain, nausea, vomiting, diarrhea. Patient is for open thrombectomy of right arm today. No fever noted blood pressure controlled. Hospitalist Physical - Physical exam Narrative exam: VITAL SIGNS: Reviewed. GENERAL: The patient appeared well nourished and normally developed. Vital signs as documented. HEAD: No signs of head trauma. EYES: Pupils are equal. Extraocular motions intact. EARS: Hearing grossly intact. MOUTH: Oropharynx is normal. NECK: No adenopathy, no JVD. CHEST: Chest with clear breath sounds bilaterally. No wheezes, rales, or rhonchi. CARDIAC: Regular rate and rhythm. S1 and S2, without murmurs, gallops, or rubs. VASCULAR: No Edema. Peripheral pulses normal and equal in all extremities. ABDOMEN: Soft, without detectable tenderness. No sign of distention. No rebound or guarding, and no masses palpated. Bowel Sounds normal. MUSCULOSKELETAL: Good range of motion of all major joints. Extremities without clubbing, cyanosis or edema. NEUROLOGIC EXAM: Alert and oriented x 3. No focal sensory or strength deficits. Speech normal. Follows commands. PSYCHIATRIC: Mood normal. SKIN: RIGHT UPPER EXT AV GRAFT - Constitutional Vitals: Temp Pulse Resp BP Pulse Ox 99.3 F 86 18 126/66 97 08/31/18 14:00 08/31/18 14:10 08/31/18 14:25 08/31/18 14:10 08/31/18 14:10 General appearance: Present: no acute distress, well-nourished Results - Labs CBC & Chem 7: 08/30/18 05:15 08/30/18 05:15 Labs: Laboratory Last Values WBC 8.0 K/mm3 (4.5-11.0) 08/30/18 05:15 RBC 2.63 M/mm3 (3.65-5.03) L 08/30/18 05:15 Hgb 7.9 gm/dl (10.1-14.3) L 08/30/18 05:15 Hct 24.8 % (30.3-42.9) L 08/30/18 05:15 MCV 94 fl (79-97) 08/30/18 05:15 MCH 30 pg (28-32) 08/30/18 05:15 MCHC 32 % (30-34) 08/30/18 05:15 RDW 16.4 % (13.2-15.2) H 08/30/18 05:15 Plt Count 281 K/mm3 (140-440) 08/30/18 05:15 Lymph % (Auto) 23.3 % (13.4-35.0) 08/26/18 06:26 [place] % (Auto) 6.8 % (0.0-7.3) 08/26/18 06:26 Eos % (Auto) 2.4 % (0.0-4.3) 08/26/18 06:26 Baso % (Auto) 0.6 % (0.0-1.8) 08/26/18 06:26 Lymph # 2.0 K/mm3 (1.2-5.4) 08/26/18 06:26 [place] # 0.6 K/mm3 (0.0-0.8) 08/26/18 06:26 Eos # 0.2 K/mm3 (0.0-0.4) 08/26/18 06:26 Baso # 0.1 K/mm3 (0.0-0.1) 08/26/18 06:26 Seg Neutrophils % 66.9 % (40.0-70.0) 08/26/18 06:26 Seg Neutrophils # 5.7 K/mm3 (1.8-7.7) 08/26/18 06:26 PT 12.3 Sec. (12.2-14.9) 08/25/18 Unknown INR 0.88 (0.87-1.13) 08/25/18 Unknown APTT 29.6 Sec. (24.2-36.6) 08/25/18 Unknown Sodium 139 mmol/L (137-145) 08/30/18 05:15 Potassium 3.6 mmol/L (3.6-5.0) 08/30/18 05:15 Chloride 97.8 mmol/L (98-107) L 08/30/18 05:15 Carbon Dioxide 28 mmol/L (22-30) 08/30/18 05:15 Anion Gap 17 mmol/L 08/30/18 05:15 BUN 16 mg/dL (7-17) 08/30/18 05:15 Creatinine 3.4 mg/dL (0.7-1.2) H D 08/30/18 05:15 Estimated GFR 18 ml/min 08/30/18 05:15 BUN/Creatinine Ratio 5 % 08/30/18 05:15 Glucose 150 mg/dL (65-100) H 08/30/18 05:15 POC Glucose 156 (70-105) H 08/31/18 13:32 Hemoglobin A1c 6.8 % (4-6) H 08/26/18 06:26 Calcium 8.3 mg/dL (8.4-10.2) L 08/30/18 05:15 Magnesium 2.00 mg/dL (1.7-2.3) 08/25/18 Unknown Total Bilirubin 0.30 mg/dL (0.1-1.2) 08/26/18 06:26 AST 8 units/L (5-40) 08/26/18 06:26 ALT 6 units/L (7-56) L 08/26/18 06:26 Alkaline Phosphatase 90 units/L (35-129) 08/26/18 06:26 Total Protein 7.0 g/dL (6.3-8.2) 08/26/18 06:26 Albumin 3.4 g/dL (3.9-5) L 08/26/18 06:26 Albumin/Globulin Ratio 0.9 % 08/26/18 06:26 Blood Type AB POSITIVE 08/31/18 08:05 Antibody Screen Negative 08/31/18 08:05 Crossmatch See Detail 08/31/18 08:05 Nutrition/Malnutrition Assess - Dietary Evaluation Nutrition/Malnutrition Findings: Nutrition Notes Start: 08/27/18 16:17 Freq: Status: Active Protocol: Document 08/31/18 11:00 LM (Rec: 08/31/18 11:22 LM [id number]) Co-Sign 08/31/18 11:00 LP Nutrition Notes Initial or Follow up Brief Note Current Diagnosis CKD (stage V CKD) Diabetes Hypertension Stroke Other Pertinent Diagnosis Diabetic gastroparesis Current Diet NPO after midnight Labs/Tests Reviewed Pertinent Medications Reviewed Height 5 ft 4 in Weight 91 kg [place] Body Weight (lbs) 120.0 BMI 34.4 Subjective/Other Information Pt not in room at time of visit. Nutrition Intervention Follow-Up By: 09/03/18 Additional Comments F/U for PO/ONS intakes
[2018-08-31] MEDS ORDERED: HEPARIN 10,000 UNITS/10 ML IV PRN (20:23)
[2018-09-01] MEDS: CATAPRES PO SCH ×4 (00:03→21:00)
[2018-09-01] MEDS: PROTONIX PO SCH ×3 (00:03→22:00)
[2018-09-01] MEDS: HEPARIN SUB-Q SCH ×3 (00:04→21:47)
[2018-09-01] MEDS: ZOFRAN ODT PO SCH ×4 (00:04→21:47)
[2018-09-01] MEDS: NORMODYNE PO SCH ×4 (00:04→21:01)
[2018-09-01] MEDS: SODIUM CHLORIDE FLUSH SYRINGE 10 ML IV SCH ×3 (00:05→22:00)
[2018-09-01] MEDS: HumaLOG SUB-Q SCH ×5 (00:06→21:46)
[2018-09-01] MEDS: DILAUDID IV PRN ×5 (01:31→22:00)
[2018-09-01] MEDS: SODIUM CHLORIDE FLUSH SYRINGE 10 ML IV PRN (01:32)
[2018-09-01] MEDS: ZOFRAN IV PRN (03:53)
[2018-09-01] MEDS: BENADRYL PO PRN ×2 (03:53→21:44)
[2018-09-01] MEDS: APRESOLINE PO SCH ×3 (06:52→21:39)
--- NOTE | 2018-09-01 11:08 | Progress Note ---
Subjective Principal diagnosis: Clotted ROU Access Interval history: Patient was seen today for follow-up of multiple renal related issues No complaints of any chest pain pressure or shortness of breath Interdisciplinary notes that also reviewed Events of 24 hours vitals labs intake output medications were reviewed Past medical history: Reviewed Family history: Reviewed Social history: Reviewed Allergies: Reviewed Physical examination: Vitals: Reviewed HEENT: No pallor or icterus oral mucosa moist Neck: Supple no JVD no thyromegaly Chest: Bilateral clear to auscultation anteriorly Heart: Regular rate and rhythm S1-S2 heard no S3-S4 Abdomen: Soft nontender no voluntary guarding rigidity rebound Extremity: Dry skin less than 1+ peripheral edema very faint bruit in right arm Femoral catheter Psychiatric: No evidence of agitation and aggression noted Dermatology: No petechial rashes Labs and x-rays: Reviewed from today Assessment and plan End-stage renal disease: Patient is currently on hemodialysis, and will need to continue with hemodialysis , her current dialysis access is a femoral catheter, or access in her right arm appears to be sluggish and has a very faint bruit that needs to be evaluated by vascular surgery currently on dialysis Monday, She is currently being followed by vascular surgery and had a discussion with hospital medicine service about, discussing with vascular surgery about a permanent access Anemia and end-stage renal disease: Monitor hemoglobin and hematocrit erythropoietin as needed. Workup as required Secondary hyperparathyroidism: Check phosphorus and PTH level periodically, binders as needed Dialysis access: Currently working well, she does have a central venous catheter in her groin which is in need for removal to be replaced with a permacath Malnutrition risk: High consider high-protein diet dietitian evaluation and follow-up in general 1.5 g protein per KG body weight Fluid restriction: 1200 cc per day not to exceed more than that Adequately counseled and educated about other hospital related issues as well Labs were discussed with patient and simple [place] Patient does appear to have good understanding of all the dialysis related issues Patient was adequately counseled and educated regarding all the renal related issues Laboratory studies, pertinent for discussed with patient All questions were answered and simple [place] We'll continue to follow and make recommendation for renal standpoint Objective - Vital Signs Vital signs: Vital Signs - 12hr 08/31/18 09/01/18 09/01/18 23:31 00:03 05:34 Temperature 98.6 F Pulse Rate 84 84 88 Respiratory 18 Rate Blood Pressure 141/76 141/76 154/79 O2 Sat by Pulse 100 100 Oximetry 09/01/18 06:51 Temperature 99.8 F H Pulse Rate Respiratory Rate Blood Pressure O2 Sat by Pulse Oximetry - Lab 08/30/18 05:15 08/30/18 05:15 Most recent lab results Calcium 8.3 mg/dL (8.4-10.2) L 08/30/18 05:15 Magnesium 2.00 mg/dL (1.7-2.3) 08/25/18 Unknown Medications & Allergies - Medications Allergies/Adverse Reactions: Allergies Fish Containing Products Allergy (Verified 07/10/18 17:56) Rash metformin Allergy (Verified 10/25/16 01:38) Hives metoclopramide HCl [From Reglan] Allergy (Verified 10/25/16 01:38) Hives prochlorperazine [From Compazine] Allergy (Verified 10/25/16 01:38) Hives prochlorperazine edisylate [From Compazine] Allergy (Verified 10/25/16 01:38) Hives prochlorperazine maleate [From Compazine] Allergy (Verified 10/25/16 01:38) Hives shellfish Allergy (Uncoded 07/30/18 12:26) Swelling Home Medications: Home Medications Medication Instructions Recorded Confirmed Last Taken Type traMADol [Ultram 50 MG tab] 50 mg PO Q6H PRN #20 tablet 07/30/18 08/27/18 08/23/18 Rx Apixaban [Eliquis] 2.5 mg PO Q12HR #60 tablet 08/04/18 08/27/18 08/23/18 Rx Aspirin [Aspirin BABY CHEW TAB] 81 mg PO QDAY #30 tab.chew 08/04/18 08/27/18 08/23/18 Rx AtorvaSTATin [Lipitor] 40 mg PO QHS #30 tablet 08/04/18 08/27/18 08/23/18 Rx Labetalol [Normodyne TAB] 300 mg PO TID #90 tablet 08/04/18 08/27/18 08/23/18 Rx Pantoprazole [Protonix TAB] 40 mg PO BID #60 tablet 08/04/18 08/27/18 08/23/18 Rx amLODIPine [Norvasc] 10 mg PO DAILY #30 tablet 08/04/18 08/27/18 08/23/18 Rx cloNIDine [Catapres] 0.2 mg PO TID #90 tablet 08/04/18 08/27/18 08/23/18 Rx hydrALAZINE [Apresoline TAB] 50 mg PO Q8HR #90 tablet 08/04/18 08/27/18 08/23/18 Rx Ondansetron [Zofran ODT TAB] 4 mg PO Q8HR #20 tab.rapdis 08/07/18 08/27/18 08/23/18 Rx HYDROcodone/APAP 5-325 [Elbert 1 - 2 each PO Q6HR PRN #14 tablet 08/08/18 08/27/18 08/23/18 Rx 5-325 mg TAB] Promethazine [Phenergan SUPPOS] 25 mg DC Q6HR PRN #10 supp.rect 08/08/18 08/27/18 08/23/18 Rx Promethazine [Phenergan SUPPOS] 25 mg DC Q6HR PRN #30 supp.rect 08/23/18 08/27/18 08/23/18 Rx Active Medications: Generic Name Dose Route Start Last Admin Trade Name Freq PRN Reason Stop Dose Admin Acetaminophen 650 mg 08/25/18 23:09 08/30/18 18:38 Tylenol PO 650 mg Q4H PRN Administration Pain MILD(1-3)/Fever >100.5/CHAVES Amlodipine Besylate 10 mg 08/26/18 10:00 08/31/18 10:00 Norvasc PO Not Given DAILY TRUDI Clonidine HCl 0.2 mg 08/26/18 08:00 09/01/18 00:03 Catapres PO 0.2 mg TID TRUDI Administration Diphenhydramine HCl 25 mg 08/27/18 18:06 09/01/18 03:53 Benadryl PO 25 mg Q6H PRN Administration Itching Heparin Sodium (Porcine) 5,000 unit 08/25/18 23:15 09/01/18 00:04 Heparin SUB-Q Not Given Q12HR TRUDI Heparin Sodium (Porcine) 0 unit 08/31/18 20:23 Heparin 10,000 Units/10 Ml IV ELANA PRN hemodialysis Protocol Hydralazine HCl 50 mg 08/26/18 06:00 09/01/18 06:52 Apresoline PO Not Given Q8HR [facility] Hydromorphone HCl 0.5 mg 08/30/18 11:21 09/01/18 08:13 Dilaudid IV 0.5 mg Q4H PRN Administration Pain , Severe (7-10) Sodium Chloride 100 mls @ 999 mls/hr 08/26/18 16:39 Nacl 0.9% IV ELANA PRN Hypotension Sodium Chloride 1,000 mls @ 100 mls/hr 08/31/18 01:00 08/31/18 07:15 Nacl 0.9% 1000 Ml IV 100 mls/hr DIRECT TRUDI Administration Insulin Human Lispro 0 unit 08/26/18 07:30 09/01/18 07:30 Humalog SUB-Q Not Given ACHS [facility] Protocol Labetalol HCl 300 mg 08/26/18 08:00 09/01/18 00:04 Normodyne PO Not Given TID [facility] Ondansetron HCl 4 mg 08/26/18 06:00 09/01/18 06:52 Zofran Odt PO Not Given Q8HR [facility] Ondansetron HCl 4 mg 08/31/18 16:24 09/01/18 03:53 Zofran IV 4 mg Q4H PRN Administration Nausea And Vomiting Oxycodone/Acetaminophen 1 tab 08/25/18 23:09 Percocet 5/325 PO Q6H PRN Pain, Moderate (4-6) Pantoprazole Sodium 40 mg 08/26/18 10:00 09/01/18 00:03 Protonix PO 40 mg BID TRUDI Administration Promethazine HCl 25 mg 08/25/18 23:15 Phenergan DC Q6HR PRN Vomiting Sodium Chloride 10 ml 08/25/18 23:45 09/01/18 00:05 Sodium Chloride Flush Syringe 10 Ml IV 10 ml BID TRUDI Administration Sodium Chloride 10 ml 08/25/18 23:09 09/01/18 01:32 Sodium Chloride Flush Syringe 10 Ml IV 10 ml PRN PRN Administration LINE FLUSH Tramadol HCl 50 mg 08/25/18 23:15 Ultram PO Q6H PRN Pain, Moderate (4-6)
[2018-09-01] MEDS: NORVASC PO SCH (11:39)
--- NOTE | 2018-09-01 12:42 | Progress Note ---
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 No shortness of breath. Patient complains of chronic body pains. She was sent from the dialysis clinic for evaluation of blood pressure also. No fever or chills. she had a right upper extremity AV access placed one year ago and it is a forearm loop graft placed a year ago (1) Anemia Transfusing 2 units PRBC (2)Dialysis AV fistula malfunction- Thrombosed AV graft Current Visit: Yes Status: Acute Qualifiers: Encounter type: initial encounter Qualified Code(s): T82.590A - Other mechanical complication of surgically created arteriovenous fistula, initial encounter Plan to address problem: Vascular surgery consulted Underwent and open thrombectomy of the right upper ext and right AV graft revision Pt will still need permacath and discontinuation of vascath prior to discharge. (3) Hypertensive emergency Current Visit: Yes Status: Acute Plan to address problem: Cont antihypertensives Better (4) Diabetic gastroparesis Current Visit: No Status: Chronic Plan to address problem: Patient with Gastric pacemaker (5) HTN (hypertension) Current Visit: No Status: Chronic Qualifiers: Hypertension type: essential hypertension Plan to address problem: Cont antihypertensives (6) Secondary Coagulopathy Current Visit: No Status: Chronic Plan to address problem: Eliquis on hold for expected surgery in a day or 2 (7) Type 2 diabetes mellitus with diabetic chronic kidney disease Current Visit: No Status: Chronic Qualifiers: Chronic kidney disease stage: on chronic dialysis Plan to address problem: ADJUST MEDS (8) End stage renal disease on dialysis Current Visit: No Status: Chronic Plan to address problem: Cont HD (9) HLD (hyperlipidemia) Current Visit: Yes Status: Acute Qualifiers: Hyperlipidemia type: mixed hyperlipidemia Qualified Code(s): E78.2 - Mixed hyperlipidemia Plan to address problem: On Statins (10)CVA (cerebral vascular accident) Current Visit: No Status: Chronic Qualifiers: CVA mechanism: thrombosis Precerebral and cerebral artery: middle cerebral artery Laterality of affected vessel: right Qualified Code(s): I63.311 - Cerebral infarction due to thrombosis of right middle cerebral artery WITH RESIDUAL LEFT HEMAPLEGIA Plan to address problem: Supportive care (11) DVT prophylaxis Current Visit: No Status: Acute Plan to address problem: Heparin 5000 Q12h plan discussed with nursing staff and with Taker Away Dr Rowell Reconsulted Vascular History Interval history: Patient is seen today for: Clotted AV graft Seen and examined at bedside; 24hour events reviewed; nursing staff ; no adverse overnight events reported to me; Denies any chest pain, nausea, vomiting, diarrhea. STILL REQUESTING IV AB No fever noted blood pressure controlled. Hospitalist Physical - Physical exam Narrative exam: VITAL SIGNS: Reviewed. GENERAL: The patient appeared well nourished and normally developed. Vital signs as documented. HEAD: No signs of head trauma. EYES: Pupils are equal. Extraocular motions intact. EARS: Hearing grossly intact. MOUTH: Oropharynx is normal. NECK: No adenopathy, no JVD. CHEST: Chest with clear breath sounds bilaterally. No wheezes, rales, or rhonchi. CARDIAC: Regular rate and rhythm. S1 and S2, without murmurs, gallops, or rubs. VASCULAR: No Edema. Peripheral pulses normal and equal in all extremities. ABDOMEN: Soft, without detectable tenderness. No sign of distention. No rebound or guarding, and no masses palpated. Bowel Sounds normal. MUSCULOSKELETAL: Good range of motion of all major joints. Extremities without clubbing, cyanosis or edema. NEUROLOGIC EXAM: Alert and oriented x 3. No focal sensory or strength deficits. Speech normal. Follows commands. PSYCHIATRIC: Mood normal. SKIN: RIGHT UPPER EXT AV GRAFT. VASCATH IN GROIN - Constitutional Vitals: Temp Pulse Resp BP Pulse Ox 99.8 F H 80 18 154/80 100 09/01/18 06:51 09/01/18 08:00 08/31/18 23:31 09/01/18 08:00 09/01/18 05:34 General appearance: Present: no acute distress, well-nourished Results - Labs CBC & Chem 7: 08/30/18 05:15 08/30/18 05:15 Labs: Laboratory Last Values WBC 8.0 K/mm3 (4.5-11.0) 08/30/18 05:15 RBC 2.63 M/mm3 (3.65-5.03) L 08/30/18 05:15 Hgb 7.9 gm/dl (10.1-14.3) L 08/30/18 05:15 Hct 24.8 % (30.3-42.9) L 08/30/18 05:15 MCV 94 fl (79-97) 08/30/18 05:15 MCH 30 pg (28-32) 08/30/18 05:15 MCHC 32 % (30-34) 08/30/18 05:15 RDW 16.4 % (13.2-15.2) H 08/30/18 05:15 Plt Count 281 K/mm3 (140-440) 08/30/18 05:15 Lymph % (Auto) 23.3 % (13.4-35.0) 08/26/18 06:26 [place] % (Auto) 6.8 % (0.0-7.3) 08/26/18 06:26 Eos % (Auto) 2.4 % (0.0-4.3) 08/26/18 06:26 Baso % (Auto) 0.6 % (0.0-1.8) 08/26/18 06:26 Lymph # 2.0 K/mm3 (1.2-5.4) 08/26/18 06:26 [place] # 0.6 K/mm3 (0.0-0.8) 08/26/18 06:26 Eos # 0.2 K/mm3 (0.0-0.4) 08/26/18 06:26 Baso # 0.1 K/mm3 (0.0-0.1) 08/26/18 06:26 Seg Neutrophils % 66.9 % (40.0-70.0) 08/26/18 06:26 Seg Neutrophils # 5.7 K/mm3 (1.8-7.7) 08/26/18 06:26 PT 12.3 Sec. (12.2-14.9) 08/25/18 Unknown INR 0.88 (0.87-1.13) 08/25/18 Unknown APTT 29.6 Sec. (24.2-36.6) 08/25/18 Unknown Sodium 139 mmol/L (137-145) 08/30/18 05:15 Potassium 3.6 mmol/L (3.6-5.0) 08/30/18 05:15 Chloride 97.8 mmol/L (98-107) L 08/30/18 05:15 Carbon Dioxide 28 mmol/L (22-30) 08/30/18 05:15 Anion Gap 17 mmol/L 08/30/18 05:15 BUN 16 mg/dL (7-17) 08/30/18 05:15 Creatinine 3.4 mg/dL (0.7-1.2) H D 08/30/18 05:15 Estimated GFR 18 ml/min 08/30/18 05:15 BUN/Creatinine Ratio 5 % 08/30/18 05:15 Glucose 150 mg/dL (65-100) H 08/30/18 05:15 POC Glucose 164 (70-105) H 09/01/18 12:13 Hemoglobin A1c 6.8 % (4-6) H 08/26/18 06:26 Calcium 8.3 mg/dL (8.4-10.2) L 08/30/18 05:15 Magnesium 2.00 mg/dL (1.7-2.3) 08/25/18 Unknown Total Bilirubin 0.30 mg/dL (0.1-1.2) 08/26/18 06:26 AST 8 units/L (5-40) 08/26/18 06:26 ALT 6 units/L (7-56) L 08/26/18 06:26 Alkaline Phosphatase 90 units/L (35-129) 08/26/18 06:26 Total Protein 7.0 g/dL (6.3-8.2) 08/26/18 06:26 Albumin 3.4 g/dL (3.9-5) L 08/26/18 06:26 Albumin/Globulin Ratio 0.9 % 08/26/18 06:26 Blood Type AB POSITIVE 08/31/18 08:05 Antibody Screen Negative 08/31/18 08:05 Crossmatch See Detail 08/31/18 08:05 Nutrition/Malnutrition Assess - Dietary Evaluation Nutrition/Malnutrition Findings: Nutrition Notes Start: 08/27/18 16:17 Freq: Status: Active Protocol: Document 08/31/18 11:00 LM (Rec: 08/31/18 11:22 LM [id number]) Co-Sign 08/31/18 11:00 LP Nutrition Notes Initial or Follow up Brief Note Current Diagnosis CKD (stage V CKD) Diabetes Hypertension Stroke Other Pertinent Diagnosis Diabetic gastroparesis Current Diet NPO after midnight Labs/Tests Reviewed Pertinent Medications Reviewed Height 5 ft 4 in Weight 91 kg [place] Body Weight (lbs) 120.0 BMI 34.4 Subjective/Other Information Pt not in room at time of visit. Nutrition Intervention Follow-Up By: 09/03/18 Additional Comments F/U for PO/ONS intakes
--- NOTE | 2018-09-01 15:09 | Post Operative Note ---
Pre-op diagnosis: infected permacath Post-op diagnosis: same Findings: cath removed intact Procedure: removal of permacath Anesthesia: none Surgeon: ESTIVEN ALVARENGA Estimated blood loss: none Pathology: none Condition: stable Disposition: floor
--- NOTE | 2018-09-01 16:45 | Operative Report ---
Operative Report Operative Report: Date of procedure: 09/01/2018 Pre-operative diagnosis: Infected permacath, end-stage renal disease Post-operative diagnosis: Same Procedure name(s): Removal of permacath Surgeon: Jamie Ziegler MD EBL: None Specimen(s): none Complications: none Findings: Catheter removed intact. Procedure: Patient in the supine position the skin overlying the Port-A-Cath exit site was prepped and draped using sterile technique. Using combination of blunt and sharp dissection through the exit site scar tissue was from the permacath. Using upward traction cuff was released from the surrounding tissue and the catheter withdrew. Pressure was held for hemostasis. Patient tolerated the procedure well. Sterile dressing applied.
--- NOTE | 2018-09-01 16:54 | Progress Note ---
Assessment and Plan - Patient Problems (1) Dialysis AV fistula malfunction Current Visit: Yes Status: Acute Qualifiers: Encounter type: subsequent encounter Qualified Code(s): T82.590D - Other mechanical complication of surgically created arteriovenous fistula, subsequent encounter Plan to address problem: Despite operative revision graft is thrombosed again. Arterial anastomosis was redone and therefore percutaneous attempt a thrombectomy made this time the successful. Plan on repeating that percutaneous attempt Monday. We'll do ultrasounds of the upper extremity arteries and veins case Access creation is required. Subjective Date of service: 09/01/18 Principal diagnosis: Clotted ROU Access Interval history: Asked to evaluate AV access in preparation for removal of femoral Vas-Cath prior to discharge. Objective - Exam Narrative Exam: For dialysis access in the right has no thrill or bruit. - Constitutional Vitals: Vital Signs - 12hr 09/01/18 09/01/18 09/01/18 05:34 06:51 08:00 Temperature 99.8 F H Pulse Rate 88 80 Respiratory Rate Blood Pressure 154/79 154/80 O2 Sat by Pulse 100 Oximetry 09/01/18 11:20 Temperature 100.8 F H Pulse Rate 88 Respiratory 22 Rate Blood Pressure 152/80 O2 Sat by Pulse 99 Oximetry - Labs CBC & Chem 7: 08/30/18 05:15 08/30/18 05:15 Labs: Abnormal lab results 08/31/18 08/31/18 09/01/18 Range/Units 08:05 23:42 07:30 POC Glucose 169 H 119 H (70-105) Crossmatch See Detail 09/01/18 09/01/18 Range/Units 12:13 16:26 POC Glucose 164 H 136 H (70-105) Crossmatch Medications & Allergies - Medications Allergies/Adverse Reactions: Allergies Fish Containing Products Allergy (Verified 07/10/18 17:56) Rash metformin Allergy (Verified 10/25/16 01:38) Hives metoclopramide HCl [From Reglan] Allergy (Verified 10/25/16 01:38) Hives prochlorperazine [From Compazine] Allergy (Verified 10/25/16 01:38) Hives prochlorperazine edisylate [From Compazine] Allergy (Verified 10/25/16 01:38) Hives prochlorperazine maleate [From Compazine] Allergy (Verified 10/25/16 01:38) Hives shellfish Allergy (Uncoded 07/30/18 12:26) Swelling Home Medications: Home Medications Medication Instructions Recorded Confirmed Last Taken Type traMADol [Ultram 50 MG tab] 50 mg PO Q6H PRN #20 tablet 07/30/18 08/27/18 08/23/18 Rx Apixaban [Eliquis] 2.5 mg PO Q12HR #60 tablet 08/04/18 08/27/18 08/23/18 Rx Aspirin [Aspirin BABY CHEW TAB] 81 mg PO QDAY #30 tab.chew 08/04/18 08/27/18 08/23/18 Rx AtorvaSTATin [Lipitor] 40 mg PO QHS #30 tablet 08/04/18 08/27/18 08/23/18 Rx Labetalol [Normodyne TAB] 300 mg PO TID #90 tablet 08/04/18 08/27/18 08/23/18 Rx Pantoprazole [Protonix TAB] 40 mg PO BID #60 tablet 08/04/18 08/27/18 08/23/18 Rx amLODIPine [Norvasc] 10 mg PO DAILY #30 tablet 08/04/18 08/27/18 08/23/18 Rx cloNIDine [Catapres] 0.2 mg PO TID #90 tablet 08/04/18 08/27/18 08/23/18 Rx hydrALAZINE [Apresoline TAB] 50 mg PO Q8HR #90 tablet 08/04/18 08/27/18 08/23/18 Rx Ondansetron [Zofran ODT TAB] 4 mg PO Q8HR #20 tab.rapdis 08/07/18 08/27/18 08/23/18 Rx HYDROcodone/APAP 5-325 [[place] 1 - 2 each PO Q6HR PRN #14 tablet 08/08/18 08/27/18 08/23/18 Rx 5-325 mg TAB] Promethazine [Phenergan SUPPOS] 25 mg [place] Q6HR PRN #10 supp.rect 08/08/18 08/27/18 08/23/18 Rx Promethazine [Phenergan SUPPOS] 25 mg [place] Q6HR PRN #30 supp.rect 08/23/18 08/27/18 08/23/18 Rx Active Medications: Generic Name Dose Route Start Last Admin Trade Name Freq PRN Reason Stop Dose Admin Acetaminophen 650 mg 08/25/18 23:09 08/30/18 18:38 Tylenol PO 650 mg Q4H PRN Administration Pain MILD(1-3)/Fever >100.5/CHAVES Amlodipine Besylate 10 mg 08/26/18 10:00 09/01/18 11:39 Norvasc PO 10 mg DAILY TRUDI Administration Clonidine HCl 0.2 mg 08/26/18 08:00 09/01/18 08:00 Catapres PO 0.2 mg TID TRUDI Administration Diphenhydramine HCl 25 mg 08/27/18 18:06 09/01/18 03:53 Benadryl PO 25 mg Q6H PRN Administration Itching Heparin Sodium (Porcine) 5,000 unit 08/25/18 23:15 09/01/18 11:26 Heparin SUB-Q Not Given Q12HR TRUDI Heparin Sodium (Porcine) 0 unit 08/31/18 20:23 Heparin 10,000 Units/10 Ml IV ELANA PRN hemodialysis Protocol Hydralazine HCl 50 mg 08/26/18 06:00 09/01/18 06:52 Apresoline PO Not Given Q8HR [facility] Hydromorphone HCl 0.5 mg 08/30/18 11:21 09/01/18 12:08 Dilaudid IV 0.5 mg Q4H PRN Administration Pain , Severe (7-10) Sodium Chloride 100 mls @ 999 mls/hr 08/26/18 16:39 Nacl 0.9% IV ELANA PRN Hypotension Sodium Chloride 1,000 mls @ 100 mls/hr 08/31/18 01:00 08/31/18 07:15 Nacl 0.9% 1000 Ml IV 100 mls/hr DIRECT TRUDI Administration Insulin Human Lispro 0 unit 08/26/18 07:30 09/01/18 12:11 Humalog SUB-Q Not Given ACHS [facility] Protocol Labetalol HCl 300 mg 08/26/18 08:00 09/01/18 08:00 Normodyne PO 300 mg TID TRUDI Administration Ondansetron HCl 4 mg 08/26/18 06:00 09/01/18 06:52 Zofran Odt PO Not Given Q8HR [facility] Ondansetron HCl 4 mg 08/31/18 16:24 09/01/18 03:53 Zofran IV 4 mg Q4H PRN Administration Nausea And Vomiting Oxycodone/Acetaminophen 1 tab 08/25/18 23:09 Percocet 5/325 PO Q6H PRN Pain, Moderate (4-6) Pantoprazole Sodium 40 mg 08/26/18 10:00 09/01/18 11:37 Protonix PO 40 mg BID TRUDI Administration Promethazine HCl 25 mg 08/25/18 23:15 Phenergan [place] Q6HR PRN Vomiting Sodium Chloride 10 ml 08/25/18 23:45 09/01/18 11:39 Sodium Chloride Flush Syringe 10 Ml IV 10 ml BID TRUDI Administration Sodium Chloride 10 ml 08/25/18 23:09 09/01/18 01:32 Sodium Chloride Flush Syringe 10 Ml IV 10 ml PRN PRN Administration LINE FLUSH Tramadol HCl 50 mg 08/25/18 23:15 Ultram PO Q6H PRN Pain, Moderate (4-6)
[2018-09-02] MEDS: DILAUDID IV PRN ×6 (01:56→21:45)
[2018-09-02] MEDS: APRESOLINE PO SCH ×3 (05:52→21:53)
[2018-09-02] MEDS: ZOFRAN ODT PO SCH ×3 (05:59→21:51)
[2018-09-02] MEDS: HumaLOG SUB-Q SCH ×4 (07:30→21:53)
[2018-09-02] MEDS: PROTONIX PO SCH ×3 (08:15→21:45)
[2018-09-02] MEDS: NORMODYNE PO SCH ×3 (09:58→19:39)
[2018-09-02] MEDS: HEPARIN SUB-Q SCH ×2 (09:59→21:53)
[2018-09-02] MEDS: NORVASC PO SCH (09:59)
[2018-09-02] MEDS: CATAPRES PO SCH ×3 (09:59→19:39)
[2018-09-02] MEDS: SODIUM CHLORIDE FLUSH SYRINGE 10 ML IV SCH ×2 (10:00→21:54)
--- NOTE | 2018-09-02 10:46 | Progress Note ---
Subjective Principal diagnosis: Clotted ROU Access Interval history: Patient was seen today for follow-up of multiple renal related issues No complaints of any chest pain pressure or shortness of breath Interdisciplinary notes that also reviewed her graft is not working Status post vascular surgery evaluation Events of 24 hours vitals labs intake output medications were reviewed Past medical history: Reviewed Family history: Reviewed Social history: Reviewed Allergies: Reviewed Physical examination: Vitals: Reviewed HEENT: No pallor or icterus oral mucosa moist Neck: Supple no JVD no thyromegaly Chest: Bilateral clear to auscultation anteriorly Heart: Regular rate and rhythm S1-S2 heard no S3-S4 Abdomen: Soft nontender no voluntary guarding rigidity rebound Extremity: Dry skin less than 1+ peripheral edema graft does not have any noise Psychiatric: No evidence of agitation and aggression noted Dermatology: No petechial rashes Labs and x-rays: Reviewed from today Assessment and plan End-stage renal disease: Patient is currently on hemodialysis, and will need to continue with hemodialysis , D/w Dr Ziegler patient's right arm access appears not to be working and in his opinion percutaneous approach was not successful, their team will evaluate her tomorrow morning, for dialysis access I did make patient aware about my conversation with him patient has limited vascular space for access creation Hypertension currently stable at this time Anemia in end-stage renal disease patient will need a follow-up lab last hemoglobin was 7.9 erythropoietin periodically Will order workup for anemia Check phosphorus PTH as well as repeat labs today, will also discuss with vascular surgery about the plan of care Status post lobectomy of the right upper extremity AV graft which is nearly 1-year-old All questions were answered and simple [place] We'll continue to follow and make recommendation for renal standpoint Objective - Vital Signs Vital signs: Vital Signs - 12hr 09/01/18 09/02/18 09/02/18 23:05 05:34 09:58 Temperature 99.5 F 98.4 F Pulse Rate 88 86 86 Respiratory 20 18 Rate Blood Pressure 137/77 135/71 135/78 O2 Sat by Pulse 96 97 Oximetry - Lab 09/02/18 12:25 09/02/18 12:25 Most recent lab results Calcium 8.3 mg/dL (8.4-10.2) L 08/30/18 05:15 Magnesium 2.00 mg/dL (1.7-2.3) 08/25/18 Unknown Medications & Allergies - Medications Allergies/Adverse Reactions: Allergies Fish Containing Products Allergy (Verified 07/10/18 17:56) Rash metformin Allergy (Verified 10/25/16 01:38) Hives metoclopramide HCl [From Reglan] Allergy (Verified 10/25/16 01:38) Hives prochlorperazine [From Compazine] Allergy (Verified 10/25/16 01:38) Hives prochlorperazine edisylate [From Compazine] Allergy (Verified 10/25/16 01:38) Hives prochlorperazine maleate [From Compazine] Allergy (Verified 10/25/16 01:38) Hives shellfish Allergy (Uncoded 07/30/18 12:26) Swelling Home Medications: Home Medications Medication Instructions Recorded Confirmed Last Taken Type traMADol [Ultram 50 MG tab] 50 mg PO Q6H PRN #20 tablet 07/30/18 08/27/18 08/23/18 Rx Apixaban [Eliquis] 2.5 mg PO Q12HR #60 tablet 08/04/18 08/27/18 08/23/18 Rx Aspirin [Aspirin BABY CHEW TAB] 81 mg PO QDAY #30 tab.chew 08/04/18 08/27/18 08/23/18 Rx AtorvaSTATin [Lipitor] 40 mg PO QHS #30 tablet 08/04/18 08/27/18 08/23/18 Rx Labetalol [Normodyne TAB] 300 mg PO TID #90 tablet 08/04/18 08/27/18 08/23/18 Rx Pantoprazole [Protonix TAB] 40 mg PO BID #60 tablet 08/04/18 08/27/18 08/23/18 Rx amLODIPine [Norvasc] 10 mg PO DAILY #30 tablet 08/04/18 08/27/18 08/23/18 Rx cloNIDine [Catapres] 0.2 mg PO TID #90 tablet 08/04/18 08/27/18 08/23/18 Rx hydrALAZINE [Apresoline TAB] 50 mg PO Q8HR #90 tablet 08/04/18 08/27/18 08/23/18 Rx Ondansetron [Zofran ODT TAB] 4 mg PO Q8HR #20 tab.rapdis 08/07/18 08/27/1808/23/19 Rx HYDROcodone/APAP 5-325 [[place] 1 - 2 each PO Q6HR PRN #14 tablet 08/08/18 08/27/18 08/23/18 Rx 5-325 mg TAB] Promethazine [Phenergan SUPPOS] 25 mg MD Q6HR PRN #10 supp.rect 08/08/18 08/27/18 08/23/18 Rx Promethazine [Phenergan SUPPOS] 25 mg MD Q6HR PRN #30 supp.rect 08/23/18 08/27/18 08/23/18 Rx Active Medications: Generic Name Dose Route Start Last Admin Trade Name Freq PRN Reason Stop Dose Admin Acetaminophen 650 mg 08/25/18 23:09 08/30/18 18:38 Tylenol PO 650 mg Q4H PRN Administration Pain MILD(1-3)/Fever >100.5/CHAVES Amlodipine Besylate 10 mg 08/26/18 10:00 09/02/18 09:59 Norvasc PO 10 mg DAILY TRUDI Administration Clonidine HCl 0.2 mg 08/26/18 08:00 09/02/18 09:59 Catapres PO 0.2 mg TID TRUDI Administration Diphenhydramine HCl 25 mg 08/27/18 18:06 09/01/18 21:44 Benadryl PO 25 mg Q6H PRN Administration Itching Heparin Sodium (Porcine) 5,000 unit 08/25/18 23:15 09/02/18 09:59 Heparin SUB-Q Not Given Q12HR [facility] Heparin Sodium (Porcine) 0 unit 08/31/18 20:23 Heparin 10,000 Units/10 Ml IV ELANA PRN hemodialysis Protocol Hydralazine HCl 50 mg 08/26/18 06:00 09/02/18 05:52 Apresoline PO Not Given Q8HR TRUDI Hydromorphone HCl 0.5 mg 09/01/18 22:00 09/02/18 09:58 Dilaudid IV 0.5 mg Q4H PRN Administration Pain , Severe (7-10) Sodium Chloride 100 mls @ 999 mls/hr 08/26/18 16:39 Nacl 0.9% IV ELANA PRN Hypotension Sodium Chloride 1,000 mls @ 100 mls/hr 08/31/18 01:00 08/31/18 07:15 Nacl 0.9% 1000 Ml IV 100 mls/hr DIRECT TRUDI Administration Insulin Human Lispro 0 unit 08/26/18 07:30 09/02/18 07:30 Humalog SUB-Q Not Given ACHS [facility] Protocol Labetalol HCl 300 mg 08/26/18 08:00 09/02/18 09:58 Normodyne PO 300 mg TID TRUDI Administration Ondansetron HCl 4 mg 08/26/18 06:00 09/02/18 05:59 Zofran Odt PO Not Given Q8HR [facility] Ondansetron HCl 4 mg 08/31/18 16:24 09/01/18 03:53 Zofran IV 4 mg Q4H PRN Administration Nausea And Vomiting Oxycodone/Acetaminophen 1 tab 08/25/18 23:09 Percocet 5/325 PO Q6H PRN Pain, Moderate (4-6) Pantoprazole Sodium 40 mg 08/26/18 10:00 09/02/18 08:15 Protonix PO 40 mg BID TRUDI Administration Promethazine HCl 25 mg 08/25/18 23:15 Phenergan MD Q6HR PRN Vomiting Sodium Chloride 10 ml 08/25/18 23:45 09/02/18 10:00 Sodium Chloride Flush Syringe 10 Ml IV 10 ml BID TRUDI Administration Sodium Chloride 10 ml 08/25/18 23:09 09/01/18 01:32 Sodium Chloride Flush Syringe 10 Ml IV 10 ml PRN PRN Administration LINE FLUSH Tramadol HCl 50 mg 08/25/18 23:15 Ultram PO Q6H PRN Pain, Moderate (4-6)
[2018-09-02 12:38] LABS: Basophils % (Auto) 0.4 % (0.0-1.8); Eosinophils # (Auto) 0.3 K/mm3 (0.0-0.4); Eosinophils % (Auto) 2.6 % (0.0-4.3); Hematocrit 27.1 % (30.3-42.9); Hemoglobin 8.9 gm/dl (10.1-14.3); Lymphocytes # (Auto) 1.2 K/mm3 (1.2-5.4); Lymphocytes % (Auto) 12.1 % (13.4-35.0); Mean Corpuscular HGB Conc 33 % (30-34); Mean Corpuscular Volume 93 fl (79-97); Monocytes # (Auto) 0.7 K/mm3 (0.0-0.8); Monocytes % (Auto) 7.2 % (0.0-7.3); Platelet Count 328 K/mm3 (140-440); Red Blood Count 2.92 M/mm3 (3.65-5.03); Red Cell Distribution Width 16.2 % (13.2-15.2)
[2018-09-02 12:59] LABS: Albumin 2.9 g/dL (3.9-5); BUN/Creatinine Ratio 6; Blood Urea Nitrogen 35 mg/dL (7-17); Calcium 8.4 mg/dL (8.4-10.2); Hemolysis Index 0; Iron 30 ug/dL (37-170); Total Iron Binding Capacity 106 mcg/dL (250-450)
[2018-09-02 13:01] LABS: Alanine Aminotransferase < 5 units/L (7-56)
--- NOTE | 2018-09-02 14:26 | Progress Note ---
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 No shortness of breath. Patient complains of chronic body pains. She was sent from the dialysis clinic for evaluation of blood pressure also. No fever or chills. she had a right upper extremity AV access placed one year ago and it is a forearm loop graft placed a year ago (1) Anemia Transfused 2 units PRBC (2)Dialysis AV fistula malfunction- Thrombosed AV graft Current Visit: Yes Status: Acute Qualifiers: Encounter type: initial encounter Qualified Code(s): T82.590A - Other mechanical complication of surgically created arteriovenous fistula, initial encounter Plan to address problem: Vascular surgery consulted Underwent and open thrombectomy of the right upper ext and right AV graft revision- not sure was successful Pt will still need permacath and discontinuation of vascath prior to discharge. (3) Hypertensive emergency Current Visit: Yes Status: Acute Plan to address problem: Cont antihypertensives Better (4) Diabetic gastroparesis Current Visit: No Status: Chronic Plan to address problem: Patient with Gastric pacemaker (5) HTN (hypertension) Current Visit: No Status: Chronic Qualifiers: Hypertension type: essential hypertension Plan to address problem: Cont antihypertensives (6) Secondary Coagulopathy Current Visit: No Status: Chronic Plan to address problem: Eliquis on hold for expected surgery in a day or 2 (7) Type 2 diabetes mellitus with diabetic chronic kidney disease Current Visit: No Status: Chronic Qualifiers: Chronic kidney disease stage: on chronic dialysis Plan to address problem: ADJUST MEDS (8) End stage renal disease on dialysis Current Visit: No Status: Chronic Plan to address problem: Cont HD (9) HLD (hyperlipidemia) Current Visit: Yes Status: Acute Qualifiers: Hyperlipidemia type: mixed hyperlipidemia Qualified Code(s): E78.2 - Mixed hyperlipidemia Plan to address problem: On Statins (10)CVA (cerebral vascular accident) Current Visit: No Status: Chronic Qualifiers: CVA mechanism: thrombosis Precerebral and cerebral artery: middle cerebral artery Laterality of affected vessel: right Qualified Code(s): I63.311 - Cerebral infarction due to thrombosis of right middle cerebral artery WITH RESIDUAL LEFT HEMAPLEGIA Plan to address problem: Supportive care (11) DVT prophylaxis Current Visit: No Status: Acute Plan to address problem: Heparin 5000 Q12h plan discussed with nursing staff and with Front Desk Officer Dr Rowell Reconsulted Vascular History Interval history: Patient is seen today for: Clotted AV graft Seen and examined at bedside; 24hour events reviewed; nursing staff ; no adverse overnight events reported to me; Denies any chest pain, nausea, vomiting, diarrhea. STILL REQUESTING IV pain meds, now asking for PO hydromorphone when discharged No fever noted blood pressure controlled. Hospitalist Physical - Physical exam Narrative exam: VITAL SIGNS: Reviewed. GENERAL: The patient appeared well nourished and normally developed. Vital signs as documented. HEAD: No signs of head trauma. EYES: visually impared EARS: Hearing grossly intact. MOUTH: Oropharynx is normal. NECK: No adenopathy, no JVD. CHEST: Chest with clear breath sounds bilaterally. No wheezes, rales, or rhonchi. CARDIAC: Regular rate and rhythm. S1 and S2, without murmurs, gallops, or rubs. VASCULAR: No Edema. Peripheral pulses normal and equal in all extremities. ABDOMEN: Soft, without detectable tenderness. No sign of distention. No rebound or guarding, and no masses palpated. Bowel Sounds normal. MUSCULOSKELETAL: Good range of motion of all major joints except left ext. Extremities without clubbing, cyanosis or edema. NEUROLOGIC EXAM: Alert and oriented x 3. left hemiparesis. Speech normal. Follows commands. PSYCHIATRIC: Mood normal. SKIN: RIGHT UPPER EXT AV GRAFT. VASCATH IN GROIN - Constitutional Vitals: Temp Pulse Resp BP Pulse Ox 99.7 F H 87 18 105/50 97 09/02/18 12:41 09/02/18 14:16 09/02/18 12:41 09/02/18 14:16 09/02/18 12:41 General appearance: Present: no acute distress, well-nourished Results - Labs CBC & Chem 7: 09/02/18 12:25 09/02/18 12:25 Labs: Laboratory Last Values WBC 10.2 K/mm3 (4.5-11.0) 09/02/18 12:25 RBC 2.92 M/mm3 (3.65-5.03) L 09/02/18 12:25 Hgb 8.9 gm/dl (10.1-14.3) L 09/02/18 12:25 Hct 27.1 % (30.3-42.9) L 09/02/18 12:25 MCV 93 fl (79-97) 09/02/18 12:25 MCH 30 pg (28-32) 09/02/18 12:25 MCHC 33 % (30-34) 09/02/18 12:25 RDW 16.2 % (13.2-15.2) H 09/02/18 12:25 Plt Count 328 K/mm3 (140-440) 09/02/18 12:25 Lymph % (Auto) 12.1 % (13.4-35.0) L 09/02/18 12:25 [place] % (Auto) 7.2 % (0.0-7.3) 09/02/18 12:25 Eos % (Auto) 2.6 % (0.0-4.3) 09/02/18 12:25 Baso % (Auto) 0.4 % (0.0-1.8) 09/02/18 12:25 Lymph # 1.2 K/mm3 (1.2-5.4) 09/02/18 12:25 [place] # 0.7 K/mm3 (0.0-0.8) 09/02/18 12:25 Eos # 0.3 K/mm3 (0.0-0.4) 09/02/18 12:25 Baso # 0.0 K/mm3 (0.0-0.1) 09/02/18 12:25 Seg Neutrophils % 77.7 % (40.0-70.0) H 09/02/18 12:25 Seg Neutrophils # 7.9 K/mm3 (1.8-7.7) H 09/02/18 12:25 PT 12.3 Sec. (12.2-14.9) 08/25/18 Unknown INR 0.88 (0.87-1.13) 08/25/18 Unknown APTT 29.6 Sec. (24.2-36.6) 08/25/18 Unknown Sodium 137 mmol/L (137-145) 09/02/18 12:25 Potassium 3.8 mmol/L (3.6-5.0) 09/02/18 12:25 Chloride 98.2 mmol/L (98-107) 09/02/18 12:25 Carbon Dioxide 25 mmol/L (22-30) 09/02/18 12:25 Anion Gap 18 mmol/L 09/02/18 12:25 BUN 35 mg/dL (7-17) H 09/02/18 12:25 Creatinine 5.9 mg/dL (0.7-1.2) H D 09/02/18 12:25 Estimated GFR 10 ml/min 09/02/18 12:25 BUN/Creatinine Ratio 6 % 09/02/18 12:25 Glucose 159 mg/dL (65-100) H 09/02/18 12:25 POC Glucose 151 (70-105) H 09/02/18 12:47 Hemoglobin A1c 6.8 % (4-6) H 08/26/18 06:26 Calcium 8.4 mg/dL (8.4-10.2) 09/02/18 12:25 Phosphorus 5.10 mg/dL (2.5-4.5) H 09/02/18 12:25 Magnesium 2.00 mg/dL (1.7-2.3) 08/25/18 Unknown Iron 30 ug/dL (37-170) L 09/02/18 12:25 TIBC 106 mcg/dL (250-450) L 09/02/18 12:25 % Saturation 28.30 % 09/02/18 12:25 Transferrin 91 mg/dl (192-382) L 09/02/18 12:25 Ferritin 1360.0 ng/mL (13.0-400.0) H 09/02/18 12:25 Total Bilirubin 0.20 mg/dL (0.1-1.2) 09/02/18 12:25 AST 6 units/L (5-40) 09/02/18 12:25 ALT < 5 units/L (7-56) L 09/02/18 12:25 Alkaline Phosphatase 75 units/L (35-129) 09/02/18 12:25 Total Protein 7.1 g/dL (6.3-8.2) 09/02/18 12:25 Albumin 2.9 g/dL (3.9-5) L 09/02/18 12:25 Albumin/Globulin Ratio 0.7 % 09/02/18 12:25 Vitamin B12 720.9 pg/mL (211-911) 09/02/18 12:25 Folate 8.47 ng/mL (7.3-26.0) 09/02/18 12:25 Blood Type AB POSITIVE 08/31/18 08:05 Antibody Screen Negative 08/31/18 08:05 Crossmatch See Detail 08/31/18 08:05 Nutrition/Malnutrition Assess - Dietary Evaluation Nutrition/Malnutrition Findings: Nutrition Notes Start: 08/27/18 16:17 Freq: Status: Active Protocol: Document 08/31/18 11:00 LM (Rec: 08/31/18 11:22 LM [id number]) Co-Sign 08/31/18 11:00 LP Nutrition Notes Initial or Follow up Brief Note Current Diagnosis CKD (stage V CKD) Diabetes Hypertension Stroke Other Pertinent Diagnosis Diabetic gastroparesis Current Diet NPO after midnight Labs/Tests Reviewed Pertinent Medications Reviewed Height 5 ft 4 in Weight 91 kg [place] Body Weight (lbs) 120.0 BMI 34.4 Subjective/Other Information Pt not in room at time of visit. Nutrition Intervention Follow-Up By: 09/03/18 Additional Comments F/U for PO/ONS intakes
--- NOTE | 2018-09-02 15:12 | Progress Note ---
Assessment and Plan - Patient Problems (1) Dialysis AV fistula malfunction Current Visit: Yes Status: Acute Qualifiers: Encounter type: subsequent encounter Qualified Code(s): T82.590D - Other mechanical complication of surgically created arteriovenous fistula, subsequent encounter Plan to address problem: will schedule for another percutaneous thrombectomy attempt- should have greater chance of success as arterial inflow has been revised- but with recent repeat thrombosis some uncertainty as to [facility] salvage exits- thus will get vein mapping and bilateral arterial studies to evaluate for new access site. Subjective Date of service: 09/02/18 Principal diagnosis: Clotted ROU Access Interval history: no new complaints- still requiring vascath for Hd Objective - Exam Narrative Exam: forearm loop avg without thrill or bruit. - Constitutional Vitals: Vital Signs - 12hr 09/02/18 09/02/18 09/02/18 05:34 09:58 12:41 Temperature 98.4 F 99.7 F H Pulse Rate 86 86 87 Respiratory 18 18 Rate Blood Pressure 135/71 135/78 105/50 O2 Sat by Pulse 97 97 Oximetry 09/02/18 14:16 Temperature Pulse Rate 87 Respiratory Rate Blood Pressure 105/50 O2 Sat by Pulse Oximetry - Labs CBC & Chem 7: 09/02/18 12:25 09/02/18 12:25 Labs: Abnormal lab results 09/01/18 09/01/18 09/02/18 Range/Units 16:26 21:34 08:11 RBC (3.65-5.03) M/mm3 Hgb (10.1-14.3) gm/dl Hct (30.3-42.9) % RDW (13.2-15.2) % Lymph % (Auto) (13.4-35.0) % Seg Neutrophils % (40.0-70.0) % Seg Neutrophils # (1.8-7.7) K/mm3 BUN (7-17) mg/dL Creatinine (0.7-1.2) mg/dL Glucose (65-100) mg/dL POC Glucose 136 H 140 H 134 H (70-105) Phosphorus (2.5-4.5) mg/dL Iron (37-170) ug/dL TIBC (250-450) mcg/dL Transferrin (192-382) mg/dl Ferritin (13.0-400.0) ng/mL ALT (7-56) units/L Albumin (3.9-5) g/dL 09/02/18 09/02/18 09/02/18 Range/Units 12:25 12:25 12:25 RBC 2.92 L (3.65-5.03) M/mm3 Hgb 8.9 L (10.1-14.3) gm/dl Hct 27.1 L (30.3-42.9) % RDW 16.2 H (13.2-15.2) % Lymph % (Auto) 12.1 L (13.4-35.0) % Seg Neutrophils % 77.7 H (40.0-70.0) % Seg Neutrophils # 7.9 H (1.8-7.7) K/mm3 BUN 35 H (7-17) mg/dL Creatinine 5.9 H D (0.7-1.2) mg/dL Glucose 159 H (65-100) mg/dL POC Glucose (70-105) Phosphorus 5.10 H (2.5-4.5) mg/dL Iron 30 L (37-170) ug/dL TIBC 106 L (250-450) mcg/dL Transferrin 91 L (192-382) mg/dl Ferritin 1360.0 H (13.0-400.0) ng/mL ALT < 5 L (7-56) units/L Albumin 2.9 L (3.9-5) g/dL 09/02/18 Range/Units 12:47 RBC (3.65-5.03) M/mm3 Hgb (10.1-14.3) gm/dl Hct (30.3-42.9) % RDW (13.2-15.2) % Lymph % (Auto) (13.4-35.0) % Seg Neutrophils % (40.0-70.0) % Seg Neutrophils # (1.8-7.7) K/mm3 BUN (7-17) mg/dL Creatinine (0.7-1.2) mg/dL Glucose (65-100) mg/dL POC Glucose 151 H (70-105) Phosphorus (2.5-4.5) mg/dL Iron (37-170) ug/dL TIBC (250-450) mcg/dL Transferrin (192-382) mg/dl Ferritin (13.0-400.0) ng/mL ALT (7-56) units/L Albumin (3.9-5) g/dL Medications & Allergies - Medications Allergies/Adverse Reactions: Allergies Fish Containing Products Allergy (Verified 07/10/18 17:56) Rash metformin Allergy (Verified 10/25/16 01:38) Hives metoclopramide HCl [From Reglan] Allergy (Verified 10/25/16 01:38) Hives prochlorperazine [From Compazine] Allergy (Verified 10/25/16 01:38) Hives prochlorperazine edisylate [From Compazine] Allergy (Verified 10/25/16 01:38) Hives prochlorperazine maleate [From Compazine] Allergy (Verified 10/25/16 01:38) Hives shellfish Allergy (Uncoded 07/30/18 12:26) Swelling Home Medications: Home Medications Medication Instructions Recorded Confirmed Last Taken Type traMADol [Ultram 50 MG tab] 50 mg PO Q6H PRN #20 tablet 07/30/18 08/27/18 08/23/18 Rx Apixaban [Eliquis] 2.5 mg PO Q12HR #60 tablet 08/04/18 08/27/18 08/23/18 Rx Aspirin [Aspirin BABY CHEW TAB] 81 mg PO QDAY #30 tab.chew 08/04/18 08/27/18 08/23/18 Rx AtorvaSTATin [Lipitor] 40 mg PO QHS #30 tablet 08/04/18 08/27/18 08/23/18 Rx Labetalol [Normodyne TAB] 300 mg PO TID #90 tablet 08/04/18 08/27/18 08/23/18 Rx Pantoprazole [Protonix TAB] 40 mg PO BID #60 tablet 08/04/18 08/27/18 08/23/18 Rx amLODIPine [Norvasc] 10 mg PO DAILY #30 tablet 08/04/18 08/27/18 08/23/18 Rx cloNIDine [Catapres] 0.2 mg PO TID #90 tablet 08/04/18 08/27/18 08/23/18 Rx hydrALAZINE [Apresoline TAB] 50 mg PO Q8HR #90 tablet 08/04/18 08/27/18 08/23/18 Rx Ondansetron [Zofran ODT TAB] 4 mg PO Q8HR #20 tab.rapdis 08/07/18 08/27/18 08/23/18 Rx HYDROcodone/APAP 5-325 [[place] 1 - 2 each PO Q6HR PRN #14 tablet 08/08/1808/2708/23/18 Rx 5-325 mg TAB] Promethazine [Phenergan SUPPOS] 25 mg [place] Q6HR PRN #10 supp.rect 08/08/18 08/27/18 08/23/18 Rx Promethazine [Phenergan SUPPOS] 25 mg [place] Q6HR PRN #30 supp.rect 08/23/18 08/27/18 08/23/18 Rx Active Medications: Generic Name Dose Route Start Last Admin Trade Name Freq PRN Reason Stop Dose Admin Acetaminophen 650 mg 08/25/18 23:09 08/30/18 18:38 Tylenol PO 650 mg Q4H PRN Administration Pain MILD(1-3)/Fever >100.5/CHAVES Amlodipine Besylate 10 mg 08/26/18 10:00 09/02/18 09:59 Norvasc PO 10 mg DAILY TRUDI Administration Clonidine HCl 0.2 mg 08/26/18 08:00 09/02/18 14:17 Catapres PO Not Given TID TRUDI Diphenhydramine HCl 25 mg 08/27/18 18:06 09/01/18 21:44 Benadryl PO 25 mg Q6H PRN Administration Itching Heparin Sodium (Porcine) 5,000 unit 08/25/18 23:15 09/02/18 09:59 Heparin SUB-Q Not Given Q12HR [facility] Heparin Sodium (Porcine) 0 unit 08/31/18 20:23 Heparin 10,000 Units/10 Ml IV ELANA PRN hemodialysis Protocol Hydralazine HCl 50 mg 08/26/18 06:00 09/02/18 14:16 Apresoline PO Not Given Q8HR TRUDI Hydromorphone HCl 0.5 mg 09/01/18 22:00 09/02/18 13:58 Dilaudid IV 0.5 mg Q4H PRN Administration Pain , Severe (7-10) Sodium Chloride 100 mls @ 999 mls/hr 08/26/18 16:39 Nacl 0.9% IV ELANA PRN Hypotension Sodium Chloride 1,000 mls @ 100 mls/hr 08/31/18 01:00 08/31/18 07:15 Nacl 0.9% 1000 Ml IV 100 mls/hr DIRECT TRUDI Administration Insulin Human Lispro 0 unit 08/26/18 07:30 09/02/18 11:35 Humalog SUB-Q Not Given ACHS [facility] Protocol Labetalol HCl 300 mg 08/26/18 08:00 09/02/18 14:17 Normodyne PO Not Given TID [facility] Ondansetron HCl 4 mg 08/26/18 06:00 09/02/18 14:16 Zofran Odt PO Not Given Q8HR [facility] Ondansetron HCl 4 mg 08/31/18 16:24 09/01/18 03:53 Zofran IV 4 mg Q4H PRN Administration Nausea And Vomiting Oxycodone/Acetaminophen 1 tab 08/25/18 23:09 Percocet 5/325 PO Q6H PRN Pain, Moderate (4-6) Pantoprazole Sodium 40 mg 08/26/18 10:00 09/02/18 14:16 Protonix PO Not Given BID [facility] Promethazine HCl 25 mg 08/25/18 23:15 Phenergan [place] Q6HR PRN Vomiting Sodium Chloride 10 ml 08/25/18 23:45 09/02/18 10:00 Sodium Chloride Flush Syringe 10 Ml IV 10 ml BID TRUDI Administration Sodium Chloride 10 ml 08/25/18 23:09 09/01/18 01:32 Sodium Chloride Flush Syringe 10 Ml IV 10 ml PRN PRN Administration LINE FLUSH Tramadol HCl 50 mg 08/25/18 23:15 Ultram PO Q6H PRN Pain, Moderate (4-6)
[2018-09-02] MEDS: BENADRYL PO PRN (19:37)
[2018-09-03] MEDS: DILAUDID IV PRN ×5 (01:38→20:16)
[2018-09-03] MEDS: SODIUM CHLORIDE FLUSH SYRINGE 10 ML IV PRN (05:36)
[2018-09-03] MEDS: APRESOLINE PO SCH ×3 (05:37→22:19)
[2018-09-03] MEDS: ZOFRAN ODT PO SCH ×3 (05:37→22:21)
[2018-09-03] MEDS: CATAPRES PO SCH ×3 (08:17→20:23)
[2018-09-03] MEDS: NORMODYNE PO SCH ×3 (08:18→20:22)
--- NOTE | 2018-09-03 09:02 | Progress Note ---
Subjective Principal diagnosis: Clotted ROU Access Interval history: Patient was seen today for follow-up of multiple renal related issues Pending vascular intervention Events of 24 hours vitals labs intake output medications were reviewed Past medical history: Reviewed Family history: Reviewed Social history: Reviewed Allergies: Reviewed Physical examination: Vitals: Reviewed HEENT: No pallor or icterus oral mucosa moist Neck: Supple no JVD no thyromegaly Chest: Bilateral clear to auscultation anteriorly Heart: Regular rate and rhythm S1-S2 heard no S3-S4 Abdomen: Soft nontender no voluntary guarding rigidity rebound Extremity: Dry skin less than 1+ peripheral edema very faint bruit in right arm Femoral catheter Psychiatric: No evidence of agitation and aggression noted Dermatology: No petechial rashes Labs and x-rays: Reviewed from today Assessment and plan End-stage renal disease currently on maintenance hemodialysis patient will need to receive her dialysis today or tomorrow Pending percutaneous thrombectomy possibility of new access, Clotted AV fistula: Being followed by vascular surgery Anemia in end-stage renal disease yesterday hemoglobin was around 8.9, potassium was 3.8 Mild cardiomegaly of the chest x-ray on 08/25/2018 Patient does require permanent vascular axis prior to discharge Patient was adequately counseled and educated regarding multiple renal related issues History of diabetes, gastroparesis, gastric pacemaker, hypertension, stroke multiple Anemia and end-stage renal disease: Monitor hemoglobin and hematocrit erythropoietin as needed. Workup as required Secondary hyperparathyroidism: Check phosphorus and PTH level periodically, binders as needed Dialysis access: Currently working well, she does have a central venous catheter in her groin which is in need for removal to be replaced with a permacath Malnutrition risk: High consider high-protein diet dietitian evaluation and follow-up in general 1.5 g protein per KG body weight Fluid restriction: 1200 cc per day not to exceed more than that Adequately counseled and educated about other hospital related issues as well Labs were discussed with patient and simple Nepali We'll continue to follow and make recommendation for renal standpoint Objective - Vital Signs Vital signs: Vital Signs - 12hr 09/02/18 09/03/18 09/03/18 23:50 05:44 08:17 Temperature 98.5 F 98.8 F Pulse Rate 86 84 72 Respiratory 18 18 Rate Blood Pressure 124/71 113/62 106/60 O2 Sat by Pulse 99 99 Oximetry 09/03/18 08:18 Temperature Pulse Rate 72 Respiratory Rate Blood Pressure 106/60 O2 Sat by Pulse Oximetry - Lab 09/02/18 12:25 09/02/18 12:25 Most recent lab results Calcium 8.4 mg/dL (8.4-10.2) 09/02/18 12:25 Phosphorus 5.10 mg/dL (2.5-4.5) H 09/02/18 12:25 Magnesium 2.00 mg/dL (1.7-2.3) 08/25/18 Unknown Medications & Allergies - Medications Allergies/Adverse Reactions: Allergies Fish Containing Products Allergy (Verified 07/10/18 17:56) Rash metformin Allergy (Verified 10/25/16 01:38) Hives metoclopramide HCl [From Reglan] Allergy (Verified 10/25/16 01:38) Hives prochlorperazine [From Compazine] Allergy (Verified 10/25/16 01:38) Hives prochlorperazine edisylate [From Compazine] Allergy (Verified 10/25/16 01:38) Hives prochlorperazine maleate [From Compazine] Allergy (Verified 10/25/16 01:38) Hives shellfish Allergy (Uncoded 07/30/18 12:26) Swelling Home Medications: Home Medications Medication Instructions Recorded Confirmed Last Taken Type traMADol [Ultram 50 MG tab] 50 mg PO Q6H PRN #20 tablet 07/30/18 08/27/18 08/23/18 Rx Apixaban [Eliquis] 2.5 mg PO Q12HR #60 tablet 08/04/18 08/27/18 08/23/18 Rx Aspirin [Aspirin BABY CHEW TAB] 81 mg PO QDAY #30 tab.chew 08/04/18 08/27/18 08/23/18 Rx AtorvaSTATin [Lipitor] 40 mg PO QHS #30 tablet 08/04/18 08/27/18 08/23/18 Rx Labetalol [Normodyne TAB] 300 mg PO TID #90 tablet 08/04/18 08/27/18 08/23/18 Rx Pantoprazole [Protonix TAB] 40 mg PO BID #60 tablet 08/04/18 08/27/18 08/23/18 Rx amLODIPine [Norvasc] 10 mg PO DAILY #30 tablet 08/04/18 08/27/18 08/23/18 Rx cloNIDine [Catapres] 0.2 mg PO TID #90 tablet 08/04/18 08/27/18 08/23/18 Rx hydrALAZINE [Apresoline TAB] 50 mg PO Q8HR #90 tablet 08/04/18 08/27/18 08/23/18 Rx Ondansetron [Zofran ODT TAB] 4 mg PO Q8HR #20 tab.rapdis 08/07/18 08/27/18 08/23/18 Rx HYDROcodone/APAP 5-325 [[place] 1 - 2 each PO Q6HR PRN #14 tablet 08/08/18 08/27/18 08/23/18 Rx 5-325 mg TAB] Promethazine [Phenergan SUPPOS] 25 mg [place] Q6HR PRN #10 supp.rect 08/08/18 08/27/18 08/23/18 Rx Promethazine [Phenergan SUPPOS] 25 mg [place] Q6HR PRN #30 supp.rect 08/23/18 08/27/18 08/23/18 Rx Active Medications: Generic Name Dose Route Start Last Admin Trade Name Freq PRN Reason Stop Dose Admin Acetaminophen 650 mg 08/25/18 23:09 08/30/18 18:38 Tylenol PO 650 mg Q4H PRN Administration Pain MILD(1-3)/Fever >100.5/CHAVES Amlodipine Besylate 10 mg 08/26/18 10:00 09/02/18 09:59 Norvasc PO 10 mg DAILY TRUDI Administration Clonidine HCl 0.2 mg 08/26/18 08:00 09/03/18 08:17 Catapres PO Not Given TID TRUDI Diphenhydramine HCl 25 mg 08/27/18 18:06 09/02/18 19:37 Benadryl PO 25 mg Q6H PRN Administration Itching Heparin Sodium (Porcine) 5,000 unit 08/25/18 23:15 09/02/18 21:53 Heparin SUB-Q Not Given Q12HR [facility] Heparin Sodium (Porcine) 0 unit 08/31/18 20:23 Heparin 10,000 Units/10 Ml IV ELANA PRN hemodialysis Protocol Hydralazine HCl 50 mg 08/26/18 06:00 09/03/18 05:37 Apresoline PO Not Given Q8HR [facility] Hydromorphone HCl 0.5 mg 09/01/18 22:00 09/03/18 05:36 Dilaudid IV 0.5 mg Q4H PRN Administration Pain , Severe (7-10) Sodium Chloride 100 mls @ 999 mls/hr 08/26/18 16:39 Nacl 0.9% IV ELANA PRN Hypotension Sodium Chloride 1,000 mls @ 100 mls/hr 08/31/18 01:00 08/31/18 07:15 Nacl 0.9% 1000 Ml IV 100 mls/hr DIRECT TRUDI Administration Insulin Human Lispro 0 unit 08/26/18 07:30 09/02/18 21:53 Humalog SUB-Q Not Given ACHS [facility] Protocol Labetalol HCl 300 mg 08/26/18 08:00 09/03/18 08:18 Normodyne PO Not Given TID [facility] Ondansetron HCl 4 mg 08/26/18 06:00 09/03/18 05:37 Zofran Odt PO Not Given Q8HR [facility] Ondansetron HCl 4 mg 08/31/18 16:24 09/01/18 03:53 Zofran IV 4 mg Q4H PRN Administration Nausea And Vomiting Oxycodone/Acetaminophen 1 tab 08/25/18 23:09 Percocet 5/325 PO Q6H PRN Pain, Moderate (4-6) Pantoprazole Sodium 40 mg 08/26/18 10:00 09/02/18 21:45 Protonix PO 40 mg BID TRUDI Administration Promethazine HCl 25 mg 08/25/18 23:15 Phenergan [place] Q6HR PRN Vomiting Sodium Chloride 10 ml 08/25/18 23:45 09/02/18 21:54 Sodium Chloride Flush Syringe 10 Ml IV 10 ml BID TRUDI Administration Sodium Chloride 10 ml 08/25/18 23:09 09/03/18 05:36 Sodium Chloride Flush Syringe 10 Ml IV 10 ml PRN PRN Administration LINE FLUSH Tramadol HCl 50 mg 08/25/18 23:15 Ultram PO Q6H PRN Pain, Moderate (4-6)
[2018-09-03] MEDS: HumaLOG SUB-Q SCH ×4 (09:33→23:29)
[2018-09-03] MEDS: NORVASC PO SCH (09:34)
[2018-09-03] MEDS: HEPARIN SUB-Q SCH ×2 (09:34→22:20)
[2018-09-03] MEDS: SODIUM CHLORIDE FLUSH SYRINGE 10 ML IV SCH ×2 (09:52→22:20)
[2018-09-03] MEDS: PROTONIX PO SCH ×2 (09:52→22:19)
[2018-09-03] MEDS ORDERED: HEPARIN/NS 5000 UNIT/500ML(CATH LAB) 500 ML IR ONE ×2 (11:53→14:04)
[2018-09-03] MEDS ORDERED: NACL 0.9% 250ML 250 ML ONE (11:53)
[2018-09-03] MEDS: SUBLIMAZE ONE ×4 (13:24→13:42)
[2018-09-03] MEDS: VERSED ONE ×6 (13:25→14:39)
[2018-09-03] MEDS: XYLOCAINE 2% INFILTRATI ONE ×2 (13:28→13:31)
[2018-09-03] MEDS: HEPARIN 10,000 UNITS/10 ML ONE ×3 (13:48→14:48)
[2018-09-03] MEDS ORDERED: SUBLIMAZE ONE ×2 (13:55→13:58)
[2018-09-03] MEDS ORDERED: VERSED ONE (13:58)
--- NOTE | 2018-09-03 15:15 | Event Note ---
Date: 09/03/18 The patient will need placement of a new graft.
--- NOTE | 2018-09-03 15:22 | Operative Report ---
Operative Report Operative Report: Exam: Right upper extremity thrombectomy with venoplasty, left Vas-Cath to PermCath conversion Clinical indication: Patient with thrombosed right upper extremity graft and indwelling left Vas-Cath Date: 09/03/2008 Procedure: Following an explanation of the risks, benefits and alternatives; written informed consent was obtained. The patient was brought to the angiographic suite and placed in supine position on the examination table. Initial evaluation of her right arm graft demonstrated thrombus. Ultrasound was also utilized which identified thrombus extending from the newly created arterial anastomosis through the graft into the venous outflow. The patient's upper arm was prepped and draped in the usual sterile fashion. 1% lidocaine was used for anesthesia. Access was obtained using ultrasound guidance towards the venous anastomosis using a 7 cm 21-gauge needle. A 0.018 wire was advanced through the graft. The needle was removed and a micro-sheath placed. The 0.018 guidewire was exchanged for a 0.035 guidewire and a micro-sheath exchanged for a 7 [place] vascular sheath. Access towards the arterial anastomosis was obtained in a similar fashion and a 6 [place] sheath placed. A 4 [place] vertebral catheter was advanced over the guidewire through the venous sheath to the central veins. The central veins are widely patent. There is thrombus extending from the axillary vein to the sheath insertion site. Maceration of thrombus was first performed using an 8 mm balloon followed by 7 mm balloon in the body of the graft. Post maceration thrombectomy was performed using a Tre[place]ola mechanical thrombectomy device. Vertebral catheter was then advanced over the guidewire through the arterial anastomosis. The arterial anastomosis was gently swept free using Natalie balloon. Angioplasty of the proxima raft was then performed using a 5 mm balloon. Post thrombectomy angioplasty of the graft demonstrated no significant flow. At this point, decision was made to abandon this access and sheaths were removed and hemostasis achieved using 4-0 Vicryl suture. The patient's left groin Vas-Cath and left groin and lateral leg prepped and draped in the usual sterile fashion. Additional 1% lidocaine was used for anesthesia. An appropriate catheter exit site was chosen along the lateral leg. 1% lidocaine was used for anesthesia of the catheter exit site and along the tunnel tract. A palindrome 55 cm catheter was then tunneled from the catheter exit site to the venotomy site. A 0.035 guidewire was advanced through the indwelling Vas-Cath and the Vas-Cath removed. Following serial dilation over the guidewire under fluoroscopy, a 16 [place] peel away sheath was placed over the guidewire under fluoroscopy. The trocar was removed and the catheter inserted through the peel-away sheath over the guidewire. Together with the aid of the guidewire and the peel-away sheath, the catheter was inserted into the IVC just proximal to the right atrium. The peel-away sheath and guidewire were removed. Both ports flushed and aspirated easily more than lock was appropriate volumes of heparin. 4-0 Vicryl suture was used to approximate the tenotomy site. 4-0 Vicryl suture was also applied to the catheter exit site. No dressings were then applied. The patient tolerated the procedure well. There were no immediate postprocedure complications Conscious sedation was performed under the guidance of radiologic nursing. Continuous cardiopulmonary monitoring was utilized. Impression: Failed right upper extremity thrombectomy with venoplasty. This access will be abandoned and the patient will undergo vein mapping with placement of a new graft. 2) Conversion of left femoral Vas-Cath to PermCath
--- NOTE | 2018-09-03 17:45 | Progress Note ---
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 No shortness of breath. Patient complains of chronic body pains. She was sent from the dialysis clinic for evaluation of blood pressure also. No fever or chills. she had a right upper extremity AV access placed one year ago and it is a forearm loop graft placed a year ago Patient unfortunately has had multiple attempts to greater than accessible times have failed. Patient does have a Vas-Cath on the groin. Further to a permacath. We'll await discussion with nephrology if this is ideal for patient admitted to be discharged while awake since vein mapping and a new access. We'll continue to check hemoglobin and hematocrit as needed. (1) Anemia Transfused 2 units PRBC (2)Dialysis AV fistula malfunction- Thrombosed AV graft Current Visit: Yes Status: Acute Qualifiers: Encounter type: initial encounter Qualified Code(s): T82.590A - Other mechanical complication of surgically created arteriovenous fistula, initial encounter Plan to address problem: Vascular surgery consulted Underwent and open thrombectomy of the right upper ext and right AV graft revision- not sure was successful Pt will still need permacath and discontinuation of vascath prior to discharge. (3) Hypertensive emergency Current Visit: Yes Status: Acute Plan to address problem: Cont antihypertensives Better (4) Diabetic gastroparesis Current Visit: No Status: Chronic Plan to address problem: Patient with Gastric pacemaker (5) HTN (hypertension) Current Visit: No Status: Chronic Qualifiers: Hypertension type: essential hypertension Plan to address problem: Cont antihypertensives (6) Secondary Coagulopathy Current Visit: No Status: Chronic Plan to address problem: Eliquis on hold for expected surgery in a day or 2 (7) Type 2 diabetes mellitus with diabetic chronic kidney disease Current Visit: No Status: Chronic Qualifiers: Chronic kidney disease stage: on chronic dialysis Plan to address problem: ADJUST MEDS (8) End stage renal disease on dialysis Current Visit: No Status: Chronic Plan to address problem: Cont HD (9) HLD (hyperlipidemia) Current Visit: Yes Status: Acute Qualifiers: Hyperlipidemia type: mixed hyperlipidemia Qualified Code(s): E78.2 - Mixed hyperlipidemia Plan to address problem: On Statins (10)CVA (cerebral vascular accident) Current Visit: No Status: Chronic Qualifiers: CVA mechanism: thrombosis Precerebral and cerebral artery: middle cerebral artery Laterality of affected vessel: right Qualified Code(s): I63.311 - Cerebral infarction due to thrombosis of right middle cerebral artery WITH RESIDUAL LEFT HEMAPLEGIA Plan to address problem: Supportive care (11) DVT prophylaxis Current Visit: No Status: Acute Plan to address problem: Heparin 5000 Q12h plan discussed with nursing staff and with Sample Processor Dr Rowell History Interval history: Patient is seen today for: Clotted AV graft Seen and examined at bedside; 24hour events reviewed; nursing staff ; no adverse overnight events reported to me; Denies any chest pain, nausea, vomiting, diarrhea. STILL REQUESTING IV pain meds, now asking for PO hydromorphone when discharged No fever noted blood pressure controlled. Hospitalist Physical - Physical exam Narrative exam: VITAL SIGNS: Reviewed. GENERAL: The patient appeared well nourished and normally developed. Vital signs as documented. HEAD: No signs of head trauma. EYES: visually impared EARS: Hearing grossly intact. MOUTH: Oropharynx is normal. NECK: No adenopathy, no JVD. CHEST: Chest with clear breath sounds bilaterally. No wheezes, rales, or r honchi. CARDIAC: Regular rate and rhythm. S1 and S2, without murmurs, gallops, or r ubs. VASCULAR: No Edema. Peripheral pulses normal and equal in all extremities. ABDOMEN: Soft, without detectable tenderness. No sign of distention. No rebound or guarding, and no masses palpated. Bowel Sounds normal. MUSCULOSKELETAL: Good range of motion of all major joints except left ext. Extremities without clubbing, cyanosis or edema. NEUROLOGIC EXAM: Alert and oriented x 3. left hemiparesis. Speech normal. Follows commands. PSYCHIATRIC: Mood normal. SKIN: RIGHT UPPER EXT AV GRAFT. VASCATH IN GROIN - Constitutional Vitals: Temp Pulse Resp BP Pulse Ox 98.8 F 78 14 113/68 99 09/03/18 05:44 09/03/18 17:03 09/03/18 09:50 09/03/18 17:03 09/03/18 05:44 General appearance: Present: no acute distress, well-nourished Results - Labs CBC & Chem 7: 09/02/18 12:25 09/02/18 12:25 Labs: Laboratory Last Values WBC 10.2 K/mm3 (4.5-11.0) 09/02/18 12:25 RBC 2.92 M/mm3 (3.65-5.03) L 09/02/18 12:25 Hgb 8.9 gm/dl (10.1-14.3) L 09/02/18 12:25 Hct 27.1 % (30.3-42.9) L 09/02/18 12:25 MCV 93 fl (79-97) 09/02/18 12:25 MCH 30 pg (28-32) 09/02/18 12:25 MCHC 33 % (30-34) 09/02/18 12:25 RDW 16.2 % (13.2-15.2) H 09/02/18 12:25 Plt Count 328 K/mm3 (140-440) 09/02/18 12:25 Lymph % (Auto) 12.1 % (13.4-35.0) L 09/02/18 12:25 [place] % (Auto) 7.2 % (0.0-7.3) 09/02/18 12:25 Eos % (Auto) 2.6 % (0.0-4.3) 09/02/18 12:25 Baso % (Auto) 0.4 % (0.0-1.8) 09/02/18 12:25 Lymph # 1.2 K/mm3 (1.2-5.4) 09/02/18 12:25 [place] # 0.7 K/mm3 (0.0-0.8) 09/02/18 12:25 Eos # 0.3 K/mm3 (0.0-0.4) 09/02/18 12:25 Baso # 0.0 K/mm3 (0.0-0.1) 09/02/18 12:25 Seg Neutrophils % 77.7 % (40.0-70.0) H 09/02/18 12:25 Seg Neutrophils # 7.9 K/mm3 (1.8-7.7) H 09/02/18 12:25 PT 12.3 Sec. (12.2-14.9) 08/25/18 Unknown INR 0.88 (0.87-1.13) 08/25/18 Unknown APTT 29.6 Sec. (24.2-36.6) 08/25/18 Unknown Sodium 137 mmol/L (137-145) 09/02/18 12:25 Potassium 3.8 mmol/L (3.6-5.0) 09/02/18 12:25 Chloride 98.2 mmol/L (98-107) 09/02/18 12:25 Carbon Dioxide 25 mmol/L (22-30) 09/02/18 12:25 Anion Gap 18 mmol/L 09/02/18 12:25 BUN 35 mg/dL (7-17) H 09/02/18 12:25 Creatinine 5.9 mg/dL (0.7-1.2) H D 09/02/18 12:25 Estimated GFR 10 ml/min 09/02/18 12:25 BUN/Creatinine Ratio 6 % 09/02/18 12:25 Glucose 159 mg/dL (65-100) H 09/02/18 12:25 POC Glucose 139 (70-105) H 09/03/18 16:42 Hemoglobin A1c 6.8 % (4-6) H 08/26/18 06:26 Calcium 8.4 mg/dL (8.4-10.2) 09/02/18 12:25 Phosphorus 5.10 mg/dL (2.5-4.5) H 09/02/18 12:25 Magnesium 2.00 mg/dL (1.7-2.3) 08/25/18 Unknown Iron 30 ug/dL (37-170) L 09/02/18 12:25 TIBC 106 mcg/dL (250-450) L 09/02/18 12:25 % Saturation 28.30 % 09/02/18 12:25 Transferrin 91 mg/dl (192-382) L 09/02/18 12:25 Ferritin 1360.0 ng/mL (13.0-400.0) H 09/02/18 12:25 Total Bilirubin 0.20 mg/dL (0.1-1.2) 09/02/18 12:25 AST 6 units/L (5-40) 09/02/18 12:25 ALT < 5 units/L (7-56) L 09/02/18 12:25 Alkaline Phosphatase 75 units/L (35-129) 09/02/18 12:25 Total Protein 7.1 g/dL (6.3-8.2) 09/02/18 12:25 Albumin 2.9 g/dL (3.9-5) L 09/02/18 12:25 Albumin/Globulin Ratio 0.7 % 09/02/18 12:25 Vitamin B12 720.9 pg/mL (211-911) 09/02/18 12:25 Folate 8.47 ng/mL (7.3-26.0) 09/02/18 12:25 Blood Type AB POSITIVE 08/31/18 08:05 Antibody Screen Negative 08/31/18 08:05 Crossmatch See Detail 08/31/18 08:05 Nutrition/Malnutrition Assess - Dietary Evaluation Nutrition/Malnutrition Findings: Nutrition Notes Start: 08/27/18 16:17 Freq: Status: Active Protocol: Document 09/03/18 13:49 RM (Rec: 09/03/18 13:50 RM [id number]) Nutrition Notes Initial or Follow up Brief Note Subjective/Other Information Pt not in room at time of visit. Nutrition Intervention Follow-Up By: 09/04/18 Additional Comments F/U for PO/ONS intakes
[2018-09-03] MEDS: BENADRYL PO PRN (20:16)
[2018-09-03 21:17] LABS: Hepatitis B Surface Antigen Non-Reactive (Negative); Hepatitis C Virus Antibody Non-Reactive (NonReactive)
[2018-09-04] MEDS: DILAUDID IV PRN ×6 (00:31→22:34)
[2018-09-04] MEDS: BENADRYL PO PRN (04:21)
[2018-09-04] MEDS ORDERED: WATER FOR INJ Sterile (PF) 10 ML ONE (05:13)
[2018-09-04] MEDS ORDERED: CATHFLO IV ONE (05:17)
[2018-09-04] MEDS: APRESOLINE PO SCH ×3 (05:24→22:35)
[2018-09-04] MEDS: ZOFRAN ODT PO SCH ×3 (05:26→22:38)
[2018-09-04 06:31] LABS: Hematocrit 26.3 % (30.3-42.9); Hemoglobin 8.5 gm/dl (10.1-14.3); Mean Corpuscular HGB Conc 32 % (30-34); Mean Corpuscular Volume 94 fl (79-97); Platelet Count 400 K/mm3 (140-440); Red Cell Distribution Width 15.6 % (13.2-15.2)
[2018-09-04 06:51] LABS: Calcium 8.5 mg/dL (8.4-10.2)
[2018-09-04] MEDS: HumaLOG SUB-Q SCH ×4 (07:53→22:47)
--- NOTE | 2018-09-04 09:10 | Progress Note ---
Subjective Principal diagnosis: Clotted ROU Access Interval history: Patient was seen today for follow-up of multiple renal related issues Patient is currently status post thrombectomy Events of 24 hours vitals labs intake output medications were reviewed Past medical history: Reviewed Family history: Reviewed Social history: Reviewed Allergies: Reviewed Physical examination: Vitals: Reviewed HEENT: No pallor or icterus oral mucosa moist Neck: Supple no JVD no thyromegaly Chest: Bilateral clear to auscultation anteriorly Heart: Regular rate and rhythm S1-S2 heard no S3-S4 Abdomen: Soft nontender no voluntary guarding rigidity rebound Extremity: Dry skin less than 1+ peripheral edema very faint bruit in right arm Femoral catheter Psychiatric: No evidence of agitation and aggression noted Dermatology: No petechial rashes Labs and x-rays: Reviewed from today Assessment and plan End-stage renal disease patient needs ongoing dialysis 3 times a week, we'll change her to 4 potassium bath due to hypokalemia She is currently status post thrombectomy and currently also has a dialysis catheter Will give erythropoietin 40,000 units subcutaneous 1 Difficult vascular access: Currently being followed by vascular surgery Patient is currently on maintenance hemodialysis on Monday and Monday Hypertension and volume: Would like to discontinue amlodipine altogether avoid hypotension to prevent clotting of the access Secondary hyperparathyroidism: Periodically check phosphorus as well as PTH level Malnutrition risk: High please have the dietitian follow the patient needs to be in high protein diet, As of today hemoglobin 8.5, potassium is 3.4 BUN 17 creatinine 3 last albumin was 2.9 As for anemia is concerned her iron saturation 28% B12 folic acid normal .7 History of diabetes, gastroparesis, gastric pacemaker, hypertension, stroke multiple Anemia and end-stage renal disease: Monitor hemoglobin and hematocrit erythropoietin as needed. Workup as required Secondary hyperparathyroidism: Check phosphorus and PTH level periodically, binders as needed We'll continue to follow and make recommendation for renal standpoint Objective - Vital Signs Vital signs: Vital Signs - 12hr 09/04/18 05:19 Temperature 99.8 F H Pulse Rate 90 Respiratory 16 Rate Blood Pressure 105/58 O2 Sat by Pulse 87 Oximetry - Lab 09/04/18 06:15 09/04/18 06:15 Most recent lab results Calcium 8.5 mg/dL (8.4-10.2) 09/04/18 06:15 Phosphorus 5.10 mg/dL (2.5-4.5) H 09/02/18 12:25 Magnesium 2.00 mg/dL (1.7-2.3) 08/25/18 Unknown Medications & Allergies - Medications Allergies/Adverse Reactions: Allergies Fish Containing Products Allergy (Verified 07/10/18 17:56) Rash metformin Allergy (Verified 10/25/16 01:38) Hives metoclopramide HCl [From Reglan] Allergy (Verified 10/25/16 01:38) Hives prochlorperazine [From Compazine] Allergy (Verified 10/25/16 01:38) Hives prochlorperazine edisylate [From Compazine] Allergy (Verified 10/25/16 01:38) Hives prochlorperazine maleate [From Compazine] Allergy (Verified 10/25/16 01:38) Hives shellfish Allergy (Uncoded 07/30/18 12:26) Swelling Home Medications: Home Medications Medication Instructions Recorded Confirmed Last Taken Type traMADol [Ultram 50 MG tab] 50 mg PO Q6H PRN #20 tablet 07/30/18 08/27/18 08/23/18 Rx Apixaban [Eliquis] 2.5 mg PO Q12HR #60 tablet 08/04/18 08/27/18 08/23/18 Rx Aspirin [Aspirin BABY CHEW TAB] 81 mg PO QDAY #30 tab.chew 08/04/18 08/27/18 08/23/18 Rx AtorvaSTATin [Lipitor] 40 mg PO QHS #30 tablet 08/04/18 08/27/18 08/23/18 Rx Labetalol [Normodyne TAB] 300 mg PO TID #90 tablet 08/04/18 08/27/18 08/23/18 Rx Pantoprazole [Protonix TAB] 40 mg PO BID #60 tablet 08/04/18 08/27/18 08/23/18 Rx amLODIPine [Norvasc] 10 mg PO DAILY #30 tablet 08/04/18 08/27/18 08/23/18 Rx cloNIDine [Catapres] 0.2 mg PO TID #90 tablet 08/04/18 08/27/18 08/23/18 Rx hydrALAZINE [Apresoline TAB] 50 mg PO Q8HR #90 tablet 08/04/18 08/27/18 08/23/18 Rx Ondansetron [Zofran ODT TAB] 4 mg PO Q8HR #20 tab.rapdis 08/07/18 08/27/18 08/23/18 Rx HYDROcodone/APAP 5-325 [[place] 1 - 2 each PO Q6HR PRN #14 tablet 08/08/18 08/27/18 08/23/18 Rx 5-325 mg TAB] Promethazine [Phenergan SUPPOS] 25 mg FL Q6HR PRN #10 supp.rect 08/08/18 08/27/18 08/23/18 Rx Promethazine [Phenergan SUPPOS] 25 mg FL Q6HR PRN #30 supp.rect 08/23/18 08/27/18 08/23/18 Rx Active Medications: Generic Name Dose Route Start Last Admin Trade Name Freq PRN Reason Stop Dose Admin Acetaminophen 650 mg 08/25/18 23:09 08/30/18 18:38 Tylenol PO 650 mg Q4H PRN Administration Pain MILD(1-3)/Fever >100.5/CHAVES Clonidine HCl 0.2 mg 08/26/18 08:00 09/03/18 20:23 Catapres PO 0.2 mg TID TRUDI Administration Diphenhydramine HCl 25 mg 08/27/18 18:06 09/04/18 04:21 Benadryl PO 25 mg Q6H PRN Administration Itching Heparin Sodium (Porcine) 5,000 unit 08/25/18 23:15 09/03/18 22:20 Heparin SUB-Q Not Given Q12HR [facility] Heparin Sodium (Porcine) 0 unit 08/31/18 20:23 Heparin 10,000 Units/10 Ml IV ELANA PRN hemodialysis Protocol Hydralazine HCl 50 mg 08/26/18 06:00 09/04/18 05:24 Apresoline PO Not Given Q8HR TRUDI Hydromorphone HCl 0.5 mg 09/01/18 22:00 09/04/18 04:21 Dilaudid IV 0.5 mg Q4H PRN Administration Pain , Severe (7-10) Sodium Chloride 100 mls @ 999 mls/hr 08/26/18 16:39 Nacl 0.9% IV ELANA PRN Hypotension Sodium Chloride 1,000 mls @ 100 mls/hr 08/31/18 01:00 08/31/18 07:15 Nacl 0.9% 1000 Ml IV 100 mls/hr DIRECT TRUDI Administration Insulin Human Lispro 0 unit 08/26/18 07:30 09/04/18 07:53 Humalog SUB-Q Not Given ACHS [facility] Protocol Labetalol HCl 300 mg 08/26/18 08:00 09/03/18 20:22 Normodyne PO 300 mg TID TRUDI Administration Ondansetron HCl 4 mg 08/26/18 06:00 09/04/18 05:26 Zofran Odt PO 4 mg Q8HR TRUDI Administration Ondansetron HCl 4 mg 08/31/18 16:24 09/01/18 03:53 Zofran IV 4 mg Q4H PRN Administration Nausea And Vomiting Oxycodone/Acetaminophen 1 tab 08/25/18 23:09 Percocet 5/325 PO Q6H PRN Pain, Moderate (4-6) Pantoprazole Sodium 40 mg 08/26/18 10:00 09/03/18 22:19 Protonix PO 40 mg BID TRUDI Administration Promethazine HCl 25 mg 08/25/18 23:15 Phenergan FL Q6HR PRN Vomiting Sodium Chloride 10 ml 08/25/18 23:45 09/03/18 22:20 Sodium Chloride Flush Syringe 10 Ml IV 10 ml BID TRUDI Administration Sodium Chloride 10 ml 08/25/18 23:09 09/03/18 05:36 Sodium Chloride Flush Syringe 10 Ml IV 10 ml PRN PRN Administration LINE FLUSH Tramadol HCl 50 mg 08/25/18 23:15 Ultram PO Q6H PRN Pain, Moderate (4-6)
[2018-09-04] MEDS: CATAPRES PO SCH ×4 (09:24→22:53)
[2018-09-04] MEDS: NORMODYNE PO SCH ×4 (09:24→22:51)
[2018-09-04] MEDS: HEPARIN SUB-Q SCH ×2 (09:25→22:46)
[2018-09-04] MEDS: PROTONIX PO SCH ×2 (11:40→22:36)
[2018-09-04] MEDS: SODIUM CHLORIDE FLUSH SYRINGE 10 ML IV SCH ×2 (11:40→22:52)
[2018-09-04] MEDS ORDERED: PROCRIT SUB-Q ONE (12:00)
--- NOTE | 2018-09-04 16:15 | Event Note ---
Date: 09/04/18 Patient underwent revision of right AVG last Monday. It is now not functioning. Plan to place new AVG on . Discussed with patient in detail. Consent signed.
[2018-09-04] MEDS: ZOFRAN IV PRN (17:32)
--- NOTE | 2018-09-04 18:06 | Progress Note ---
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 No shortness of breath. Patient complains of chronic body pains. She was sent from the dialysis clinic for evaluation of blood pressure also. No fever or chills. she had a right upper extremity AV access placed one year ago and it is a forearm loop graft placed a year ago Patient unfortunately has had multiple attempts to greater than accessible times have failed. Patient does have a Vas-Cath on the groin. Further to a permacath. We'll await discussion with nephrology if this is ideal for patient admitted to be discharged while awake since vein mapping and a new access. We'll continue to check hemoglobin and hematocrit as needed. (1) Anemia Transfused 2 units PRBC H&H stable (2)Dialysis AV fistula malfunction- Thrombosed AV graft Vascular surgery consulted Underwent and open thrombectomy of the right upper ext and right AV graft revision- successful Pt will still need permacath and discontinuation of vascath prior to discharge. Patient to have AV graft on (3) Hypertensive emergency Current Visit: Yes Status: Acute Plan to address problem: Cont antihypertensives Better (4) Diabetic gastroparesis Current Visit: No Status: Chronic Plan to address problem: Patient with Gastric pacemaker (5) HTN (hypertension) Current Visit: No Status: Chronic Qualifiers: Hypertension type: essential hypertension Plan to address problem: Cont antihypertensives (6) Secondary Coagulopathy Current Visit: No Status: Chronic Plan to address problem: Eliquis on hold for expected surgery in a day or 2 (7) Type 2 diabetes mellitus with diabetic chronic kidney disease Current Visit: No Status: Chronic Qualifiers: Chronic kidney disease stage: on chronic dialysis Plan to address problem: ADJUST MEDS (8) End stage renal disease on dialysis Current Visit: No Status: Chronic Plan to address problem: Cont HD (9) HLD (hyperlipidemia) Current Visit: Yes Status: Acute Qualifiers: Hyperlipidemia type: mixed hyperlipidemia Qualified Code(s): E78.2 - Mixed hyperlipidemia Plan to address problem: On Statins (10)CVA (cerebral vascular accident) Current Visit: No Status: Chronic Qualifiers: CVA mechanism: thrombosis Precerebral and cerebral artery: middle cerebral artery Laterality of affected vessel: right Qualified Code(s): I63.311 - Cerebral infarction due to thrombosis of right middle cerebral artery WITH RESIDUAL LEFT HEMAPLEGIA Plan to address problem: Supportive care (11) DVT prophylaxis Current Visit: No Status: Acute Plan to address problem: Heparin 5000 Q12h plan discussed with nursing staff and with Transport Truck Driver Dr Rowell History Interval history: Patient was seen and evaluated this morning, patient didn't have any new complaints. Hospitalist Physical - Physical exam Narrative exam: Not in cardiopulmonary distress. The patient is obese. Vital signs as documented. Head exam is unremarkable. No scleral icterus . Neck is without jugular venous distension, thyromegaly, or carotid bruits. Lungs are clear to auscultation. Cardiac exam reveals regular rate and Rhythm. First and second heart sounds normal. No murmurs, rubs or gallops. Abdominal exam reveals normal bowel sounds, no masses, no organomegaly and no aortic enlargement. Extremities are nonedematous and both femoral and pedal pulses are normal. ETCHER APPRENTICE: Alert and oriented 3. No focal weakness. - Constitutional Vitals: Temp Pulse Resp BP Pulse Ox 99.4 F 89 20 101/53 93 09/04/18 12:19 09/04/18 12:19 09/04/18 12:19 09/04/18 12:19 09/04/18 12:19 General appearance: Present: no acute distress, well-nourished Results - Labs CBC & Chem 7: 09/05/18 05:34 09/05/18 05:34 Labs: Laboratory Last Values WBC 7.8 K/mm3 (4.5-11.0) 09/04/18 06:15 RBC 2.80 M/mm3 (3.65-5.03) L 09/04/18 06:15 Hgb 8.5 gm/dl (10.1-14.3) L 09/04/18 06:15 Hct 26.3 % (30.3-42.9) L 09/04/18 06:15 MCV 94 fl (79-97) 09/04/18 06:15 MCH 30 pg (28-32) 09/04/18 06:15 MCHC 32 % (30-34) 09/04/18 06:15 RDW 15.6 % (13.2-15.2) H 09/04/18 06:15 Plt Count 400 K/mm3 (140-440) 09/04/18 06:15 Lymph % (Auto) 12.1 % (13.4-35.0) L 09/02/18 12:25 [place] % (Auto) 7.2 % (0.0-7.3) 09/02/18 12:25 Eos % (Auto) 2.6 % (0.0-4.3) 09/02/18 12:25 Baso % (Auto) 0.4 % (0.0-1.8) 09/02/18 12:25 Lymph # 1.2 K/mm3 (1.2-5.4) 09/02/18 12:25 [place] # 0.7 K/mm3 (0.0-0.8) 09/02/18 12:25 Eos # 0.3 K/mm3 (0.0-0.4) 09/02/18 12:25 Baso # 0.0 K/mm3 (0.0-0.1) 09/02/18 12:25 Seg Neutrophils % 77.7 % (40.0-70.0) H 09/02/18 12:25 Seg Neutrophils # 7.9 K/mm3 (1.8-7.7) H 09/02/18 12:25 PT 12.3 Sec. (12.2-14.9) 08/25/18 Unknown INR 0.88 (0.87-1.13) 08/25/18 Unknown APTT 29.6 Sec. (24.2-36.6) 08/25/18 Unknown Sodium 137 mmol/L (137-145) 09/04/18 06:15 Potassium 3.4 mmol/L (3.6-5.0) L 09/04/18 06:15 Chloride 96.1 mmol/L (98-107) L 09/04/18 06:15 Carbon Dioxide 28 mmol/L (22-30) 09/04/18 06:15 Anion Gap 16 mmol/L 09/04/18 06:15 BUN 17 mg/dL (7-17) 09/04/18 06:15 Creatinine 3.7 mg/dL (0.7-1.2) H 09/04/18 06:15 Estimated GFR 17 ml/min 09/04/18 06:15 BUN/Creatinine Ratio 5 % 09/04/18 06:15 Glucose 110 mg/dL (65-100) H 09/04/18 06:15 POC Glucose 94 (70-105) 09/04/18 16:30 Hemoglobin A1c 6.8 % (4-6) H 08/26/18 06:26 Calcium 8.5 mg/dL (8.4-10.2) 09/04/18 06:15 Phosphorus 5.10 mg/dL (2.5-4.5) H 09/02/18 12:25 Magnesium 2.00 mg/dL (1.7-2.3) 08/25/18 Unknown Iron 30 ug/dL (37-170) L 09/02/18 12:25 TIBC 106 mcg/dL (250-450) L 09/02/18 12:25 % Saturation 28.30 % 09/02/18 12:25 Transferrin 91 mg/dl (192-382) L 09/02/18 12:25 Ferritin 1360.0 ng/mL (13.0-400.0) H 09/02/18 12:25 Total Bilirubin 0.20 mg/dL (0.1-1.2) 09/02/18 12:25 AST 6 units/L (5-40) 09/02/18 12:25 ALT < 5 units/L (7-56) L 09/02/18 12:25 Alkaline Phosphatase 75 units/L (35-129) 09/02/18 12:25 Total Protein 7.1 g/dL (6.3-8.2) 09/02/18 12:25 Albumin 2.9 g/dL (3.9-5) L 09/02/18 12:25 Albumin/Globulin Ratio 0.7 % 09/02/18 12:25 Vitamin B12 720.9 pg/mL (211-911) 09/02/18 12:25 Folate 8.47 ng/mL (7.3-26.0) 09/02/18 12:25 Hepatitis A IgM Ab Non-reactive (NonReactive) 09/03/18 19:43 Hep Bs Antigen Non-reactive (Negative) 09/03/18 19:43 Hep B Core IgM Ab Non-reactive (NonReactive) 09/03/18 19:43 Hepatitis C Antibody Non-reactive (NonReactive) 09/03/18 19:43 Blood Type AB POSITIVE 08/31/18 08:05 Antibody Screen Negative 08/31/18 08:05 Crossmatch See Detail 08/31/18 08:05 Nutrition/Malnutrition Assess - Dietary Evaluation Nutrition/Malnutrition Findings: Nutrition Notes Start: 08/27/18 16:17 Freq: Status: Active Protocol: Document 09/04/18 10:11 LM (Rec: 09/04/18 11:12 LM [id number]) Co-Sign 09/04/18 10:11 LP Nutrition Notes Initial or Follow up Reassessment Current Diagnosis CKD (stage V CKD) Diabetes Hypertension Stroke Other Pertinent Diagnosis Diabetic gastroparesis Current Diet NPO after midnight Labs/Tests Reviewed Pertinent Medications Reviewed Height 5 ft 4 in Weight 90.7 kg [place] Body Weight (lbs) 120.0 BMI 34.3 Subjective/Other Information Pt NPO due to thrombectomy. Percent of energy/protein needs met: 0%/0% Burn Absent Trauma Absent #1 Nutrition Diagnosis Increased nutrient needs ( specify in comment below) Diagnosis Progress(for reassessment Continues documentation) Nutrition Intervention Change Diet Order: Advance to renal diet per MD Goal #1 Diet advancement Anticipated Discharge Needs: Renal diet Follow-Up By: 09/06/18 Additional Comments F/U for diet advancement, PO intakes, and need for ONS
[2018-09-05] MEDS: PROTONIX PO SCH ×3 (02:46→23:07)
[2018-09-05] MEDS: DILAUDID IV PRN ×4 (05:51→20:24)
[2018-09-05] MEDS: ZOFRAN ODT PO SCH ×3 (05:54→23:02)
[2018-09-05] MEDS: APRESOLINE PO SCH ×2 (05:59→13:59)
[2018-09-05 06:01] LABS: Hematocrit 27.1 % (30.3-42.9); Hemoglobin 8.8 gm/dl (10.1-14.3)
[2018-09-05 07:03] LABS: Calcium 9.1 mg/dL (8.4-10.2)
[2018-09-05] MEDS: NORMODYNE PO SCH ×3 (08:00→22:47)
[2018-09-05] MEDS: CATAPRES PO SCH ×3 (08:00→23:04)
--- NOTE | 2018-09-05 08:21 | Progress Note ---
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 No shortness of breath. Patient complains of chronic body pains. She was sent from the dialysis clinic for evaluation of blood pressure also. No fever or chills. she had a right upper extremity AV access placed one year ago and it is a forearm loop graft placed a year ago Patient unfortunately has had multiple attempts to greater than accessible times have failed. Patient does have a Vas-Cath on the groin. Further to a permacath. We'll await discussion with nephrology if this is ideal for patient admitted to be discharged while awake since vein mapping and a new access. We'll continue to check hemoglobin and hematocrit as needed. (1) Anemia Transfused 2 units PRBC H&H stable (2)Dialysis AV fistula malfunction- Thrombosed AV graft Vascular surgery consulted Underwent and open thrombectomy of the right upper ext and right AV graft revision- successful Pt will still need permacath and discontinuation of vascath prior to discharge. Patient to have AV graft on (3) Hypertensive emergency Current Visit: Yes Status: Acute Plan to address problem: Cont antihypertensives Better (4) Diabetic gastroparesis Current Visit: No Status: Chronic Plan to address problem: Patient with Gastric pacemaker (5) HTN (hypertension) Current Visit: No Status: Chronic Qualifiers: Hypertension type: essential hypertension Plan to address problem: Cont antihypertensives (6) Secondary Coagulopathy Current Visit: No Status: Chronic Plan to address problem: Eliquis on hold for expected surgery in a day or 2 (7) Type 2 diabetes mellitus with diabetic chronic kidney disease Current Visit: No Status: Chronic Qualifiers: Chronic kidney disease stage: on chronic dialysis Plan to address problem: ADJUST MEDS (8) End stage renal disease on dialysis Current Visit: No Status: Chronic Plan to address problem: Cont HD (9) HLD (hyperlipidemia) Current Visit: Yes Status: Acute Qualifiers: Hyperlipidemia type: mixed hyperlipidemia Qualified Code(s): E78.2 - Mixed hyperlipidemia Plan to address problem: On Statins (10)CVA (cerebral vascular accident) Current Visit: No Status: Chronic Qualifiers: CVA mechanism: thrombosis Precerebral and cerebral artery: middle cerebral artery Laterality of affected vessel: right Qualified Code(s): I63.311 - Cerebral infarction due to thrombosis of right middle cerebral artery WITH RESIDUAL LEFT HEMAPLEGIA Plan to address problem: Supportive care (11) DVT prophylaxis Current Visit: No Status: Acute Plan to address problem: Heparin 5000 Q12h plan discussed with nursing staff and with Online Content Editor Dr Rowell History Interval history: Patient was seen and evaluated this morning, patient didn't have any new complaints. Hospitalist Physical - Physical exam Narrative exam: Not in cardiopulmonary distress. The patient is obese. Vital signs as documented. Head exam is unremarkable. No scleral icterus . Neck is without jugular venous distension, thyromegaly, or carotid bruits. Lungs are clear to auscultation. Cardiac exam reveals regular rate and Rhythm. First and second heart sounds normal. No murmurs, rubs or gallops. Abdominal exam reveals normal bowel sounds, no masses, no organomegaly and no aortic enlargement. Extremities are nonedematous and both femoral and pedal pulses are normal. 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 No focal weakness. - Constitutional Vitals: Temp Pulse Resp BP Pulse Ox 98.0 F 90 20 147/86 99 09/05/18 05:27 09/05/18 05:59 09/05/18 05:27 09/05/18 05:27 09/05/18 05:27 General appearance: Present: no acute distress, well-nourished Results - Labs CBC & Chem 7: 09/05/18 05:34 09/05/18 05:34 Labs: Laboratory Last Values WBC 7.8 K/mm3 (4.5-11.0) 09/04/18 06:15 RBC 2.80 M/mm3 (3.65-5.03) L 09/04/18 06:15 Hgb 8.8 gm/dl (10.1-14.3) L 09/05/18 05:34 Hct 27.1 % (30.3-42.9) L 09/05/18 05:34 MCV 94 fl (79-97) 09/04/18 06:15 MCH 30 pg (28-32) 09/04/18 06:15 MCHC 32 % (30-34) 09/04/18 06:15 RDW 15.6 % (13.2-15.2) H 09/04/18 06:15 Plt Count 400 K/mm3 (140-440) 09/04/18 06:15 Lymph % (Auto) 12.1 % (13.4-35.0) L 09/02/18 12:25 [place] % (Auto) 7.2 % (0.0-7.3) 09/02/18 12:25 Eos % (Auto) 2.6 % (0.0-4.3) 09/02/18 12:25 Baso % (Auto) 0.4 % (0.0-1.8) 09/02/18 12:25 Lymph # 1.2 K/mm3 (1.2-5.4) 09/02/18 12:25 [place] # 0.7 K/mm3 (0.0-0.8) 09/02/18 12:25 Eos # 0.3 K/mm3 (0.0-0.4) 09/02/18 12:25 Baso # 0.0 K/mm3 (0.0-0.1) 09/02/18 12:25 Seg Neutrophils % 77.7 % (40.0-70.0) H 09/02/18 12:25 Seg Neutrophils # 7.9 K/mm3 (1.8-7.7) H 09/02/18 12:25 PT 12.3 Sec. (12.2-14.9) 08/25/18 Unknown INR 0.88 (0.87-1.13) 08/25/18 Unknown APTT 29.6 Sec. (24.2-36.6) 08/25/18 Unknown Sodium 142 mmol/L (137-145) 09/05/18 05:34 Potassium 3.2 mmol/L (3.6-5.0) L 09/05/18 05:34 Chloride 99.8 mmol/L (98-107) 09/05/18 05:34 Carbon Dioxide 26 mmol/L (22-30) 09/05/18 05:34 Anion Gap 19 mmol/L 09/05/18 05:34 BUN 26 mg/dL (7-17) H 09/05/18 05:34 Creatinine 5.4 mg/dL (0.7-1.2) H 09/05/18 05:34 Estimated GFR 11 ml/min 09/05/18 05:34 BUN/Creatinine Ratio 5 % 09/05/18 05:34 Glucose 93 mg/dL (65-100) 09/05/18 05:34 POC Glucose 96 (70-105) 09/04/18 21:13 Hemoglobin A1c 6.8 % (4-6) H 08/26/18 06:26 Calcium 9.1 mg/dL (8.4-10.2) 09/05/18 05:34 Phosphorus 5.10 mg/dL (2.5-4.5) H 09/02/18 12:25 Magnesium 2.00 mg/dL (1.7-2.3) 08/25/18 Unknown Iron 30 ug/dL (37-170) L 09/02/18 12:25 TIBC 106 mcg/dL (250-450) L 09/02/18 12:25 % Saturation 28.30 % 09/02/18 12:25 Transferrin 91 mg/dl (192-382) L 09/02/18 12:25 Ferritin 1360.0 ng/mL (13.0-400.0) H 09/02/18 12:25 Total Bilirubin 0.20 mg/dL (0.1-1.2) 09/02/18 12:25 AST 6 units/L (5-40) 09/02/18 12:25 ALT < 5 units/L (7-56) L 09/02/18 12:25 Alkaline Phosphatase 75 units/L (35-129) 09/02/18 12:25 Total Protein 7.1 g/dL (6.3-8.2) 09/02/18 12:25 Albumin 2.9 g/dL (3.9-5) L 09/02/18 12:25 Albumin/Globulin Ratio 0.7 % 09/02/18 12:25 Vitamin B12 720.9 pg/mL (211-911) 09/02/18 12:25 Folate 8.47 ng/mL (7.3-26.0) 09/02/18 12:25 Hepatitis A IgM Ab Non-reactive (NonReactive) 09/03/18 19:43 Hep Bs Antigen Non-reactive (Negative) 09/03/18:43 Hep B Core IgM Ab Non-reactive (NonReactive) 09/03/18 19:43 Hepatitis C Antibody Non-reactive (NonReactive) 09/03/18 19:43 Blood Type AB POSITIVE 08/31/18 08:05 Antibody Screen Negative 08/31/18 08:05 Crossmatch See Detail 08/31/18 08:05 Nutrition/Malnutrition Assess - Dietary Evaluation Nutrition/Malnutrition Findings: Nutrition Notes Start: 08/27/18 1 6:17 Freq: Status: Active Protocol: Document 09/04/18 10:11 LM (Rec: 09/04/18 11:12 LM [id number]) Co-Sign 09/04/18 10:11 LP Nutrition Notes Initial or Follow up Reassessment Current Diagnosis CKD (stage V CKD) Diabetes Hypertension Stroke Other Pertinent Diagnosis Diabetic gastroparesis Current Diet NPO after midnight Labs/Tests Reviewed Pertinent Medications Reviewed Height 5 ft 4 in Weight 90.7 kg [place] Body Weight (lbs) 120.0 BMI 34.3 Subjective/Other Information Pt NPO due to thrombectomy. Percent of energy/protein needs met: 0%/0% Burn Absent Trauma Absent #1 Nutrition Diagnosis Increased nutrient needs ( specify in comment below) Diagnosis Progress(for reassessment Continues documentation) Nutrition Intervention Change Diet Order: Advance to renal diet per MD Goal #1 Diet advancement Anticipated Discharge Needs: Renal diet Follow-Up By: 09/06/18 Additional Comments F/U for diet advancement, PO intakes, and need for ONS
--- NOTE | 2018-09-05 08:23 | Progress Note ---
Assessment and Plan Patient will need placement of a new AV graft. Vascular mapping has been ordered but not yet completed. Patient was counseled on the need for a new graft. This will be scheduled for tomorrow. Subjective Date of service: 09/05/18 Principal diagnosis: Clotted RUE Access Interval history: Patient is status post thrombosed right upper extremity atypical forearm loop graft status post multiple attempts at percutaneous traumatic to me as well as surgical revision of the arterial anastomosis. The patient is currently dialyzing through a femoral PermCath. Objective - Constitutional Vitals: Vital Signs - 12hr 09/04/18 09/04/18 09/05/18 21:11 22:35 05:27 Temperature 98.2 F 98.0 F Pulse Rate 91 H 90 92 H Respiratory 20 20 Rate Blood Pressure 151/87 131/71 147/86 O2 Sat by Pulse 100 99 Oximetry 09/05/18 05:59 Temperature Pulse Rate 90 Respiratory Rate Blood Pressure O2 Sat by Pulse Oximetry General appearance: Present: no acute distress - EENT ENT: hearing intact - Neck Neck: supple, normal ROM - Respiratory Respiratory effort: normal Extremity abnormal: edema - Gastrointestinal General gastrointestinal: Present: deferred Rectal Exam: deferred - Genitourinary Female genitourinary: deferred - Integumentary Integumentary: clear, warm - Psychiatric Psychiatric: appropriate mood/affect, cooperative - Labs CBC & Chem 7: 09/05/18 05:34 09/05/18 05:34 Labs: Abnormal lab results 09/05/18 09/05/18 Range/Units 05:34 05:34 Hgb 8.8 L (10.1-14.3) gm/dl Hct 27.1 L (30.3-42.9) % Potassium 3.2 L (3.6-5.0) mmol/L BUN 26 H (7-17) mg/dL Creatinine 5.4 H (0.7-1.2) mg/dL Medications & Allergies - Medications Allergies/Adverse Reactions: Allergies Fish Containing Products Allergy (Verified 07/10/18 17:56) Rash metformin Allergy (Verified 10/25/16 01:38) Hives metoclopramide HCl [From Reglan] Allergy (Verified 10/25/16 01:38) Hives prochlorperazine [From Compazine] Allergy (Verified 10/25/16 01:38) Hives prochlorperazine edisylate [From Compazine] Allergy (Verified 10/25/16 01:38) Hives prochlorperazine maleate [From Compazine] Allergy (Verified 10/25/16 01:38) Hives shellfish Allergy (Uncoded 07/30/18 12:26) Swelling Home Medications: Home Medications Medication Instructions Recorded Confirmed Last Taken Type traMADol [Ultram 50 MG tab] 50 mg PO Q6H PRN #20 tablet 07/30/18 08/27/18 08/23/18 Rx Apixaban [Eliquis] 2.5 mg PO Q12HR #60 tablet 08/04/18 08/27/18 08/23/18 Rx Aspirin [Aspirin BABY CHEW TAB] 81 mg PO QDAY #30 tab.chew 08/04/18 08/27/18 08/23/18 Rx AtorvaSTATin [Lipitor] 40 mg PO QHS #30 tablet 08/04/18 08/27/18 08/23/18 Rx Labetalol [Normodyne TAB] 300 mg PO TID #90 tablet 08/04/18 08/27/18 08/23/18 Rx Pantoprazole [Protonix TAB] 40 mg PO BID #60 tablet 08/04/18 08/27/18 08/23/18 Rx amLODIPine [Norvasc] 10 mg PO DAILY #30 tablet 08/04/18 08/27/18 08/23/18 Rx cloNIDine [Catapres] 0.2 mg PO TID #90 tablet 08/04/18 08/27/18 08/23/18 Rx hydrALAZINE [Apresoline TAB] 50 mg PO Q8HR #90 tablet 08/04/18 08/27/18 08/23/18 Rx Ondansetron [Zofran ODT TAB] 4 mg PO Q8HR #20 tab.rapdis 08/07/18 08/27/1811/06 Rx HYDROcodone/APAP 5-325 [[place] 1 - 2 each PO Q6HR PRN #14 tablet 08/08/18 08/27/18 08/23/18 Rx 5-325 mg TAB] Promethazine [Phenergan SUPPOS] 25 mg [place] Q6HR PRN #10 supp.rect 08/08/18 0 08/27/18 08/23/18 Rx Promethazine [Phenergan SUPPOS] 25 mg [place] Q6HR PRN #30 supp.rect 08/23/1808/2708/23/18 Rx Active Medications: Generic Name Dose Route Start Last Admin Trade Name Freq PRN Reason Stop Dose Admin Acetaminophen 650 mg 08/25/18 23:09 08/30/18 18:38 Tylenol PO 650 mg Q4H PRN Administration Pain MILD(1-3)/Fever >100.5/CHAVES Clonidine HCl 0.2 mg 08/26/18 08:00 09/04/18 22:53 Catapres PO Not Given TID [facility] Diphenhydramine HCl 25 mg 08/27/18 18:06 09/04/18 04:21 Benadryl PO 25 mg Q6H PRN Administration Itching Heparin Sodium (Porcine) 5,000 unit 08/25/18 23:15 09/04/18 22:46 Heparin SUB-Q Not Given Q12HR [facility] Heparin Sodium (Porcine) 0 unit 08/31/18 20:23 Heparin 10,000 Units/10 Ml IV ELANA PRN hemodialysis Protocol Hydralazine HCl 50 mg 08/26/18 06:00 09/05/18 05:59 Apresoline PO Not Given Q8HR [facility] Hydromorphone HCl 0.5 mg 09/01/18 22:00 09/05/18 05:51 Dilaudid IV 0.5 mg Q4H PRN Administration Pain , Severe (7-10) Sodium Chloride 100 mls @ 999 mls/hr 08/26/18 16:39 Nacl 0.9% IV ELANA PRN Hypotension Sodium Chloride 1,000 mls @ 100 mls/hr 08/31/18 01:00 08/31/18 07:15 Nacl 0.9% 1000 Ml IV 100 mls/hr DIRECT TRUDI Administration Insulin Human Lispro 0 unit 08/26/18 07:30 09/04/18 22:47 Humalog SUB-Q Not Given ACHS [facility] Protocol Labetalol HCl 300 mg 08/26/18 08:00 09/04/18 22:51 Normodyne PO Not Given TID [facility] Ondansetron HCl 4 mg 08/26/18 06:00 09/05/18 05:54 Zofran Odt PO Not Given Q8HR [facility] Ondansetron HCl 4 mg 08/31/18 16:24 09/04/18 17:32 Zofran IV 4 mg Q4H PRN Administration Nausea And Vomiting Oxycodone/Acetaminophen 1 tab 08/25/18 23:09 Percocet 5/325 PO Q6H PRN Pain, Moderate (4-6) Pantoprazole Sodium 40 mg 08/26/18 10:00 09/05/18 02:46 Protonix PO Not Given BID [facility] Promethazine HCl 25 mg 08/25/18 23:15 Phenergan [place] Q6HR PRN Vomiting Sodium Chloride 10 ml 08/25/18 23:45 09/04/18 22:52 Sodium Chloride Flush Syringe 10 Ml IV 10 ml BID TRUDI Administration Sodium Chloride 10 ml 08/25/18 23:09 09/03/18 05:36 Sodium Chloride Flush Syringe 10 Ml IV 10 ml PRN PRN Administration LINE FLUSH Tramadol HCl 50 mg 08/25/18 23:15 Ultram PO Q6H PRN Pain, Moderate (4-6)
[2018-09-05] MEDS ORDERED: K-DUR PO ONE (09:04)
--- NOTE | 2018-09-05 09:04 | Progress Note ---
Subjective Principal diagnosis: Clotted RUE Access Interval history: Patient was seen today for follow-up of multiple renal related issues Patient has been receiving dialysis from her permacath Potassium still continues to be low hemoglobin stable Events of 24 hours vitals labs intake output medications were reviewed Past medical history: Reviewed Family history: Reviewed Social history: Reviewed Allergies: Reviewed Physical examination: Vitals: Reviewed HEENT: No pallor or icterus oral mucosa moist Neck: Supple no JVD no thyromegaly Chest: Bilateral clear to auscultation anteriorly Heart: Regular rate and rhythm S1-S2 heard no S3-S4 Abdomen: Soft nontender no voluntary guarding rigidity rebound Extremity: Dry skin less than 1+ peripheral edema very faint bruit in right arm Femoral catheter Psychiatric: No evidence of agitation and aggression noted Dermatology: No petechial rashes Labs and x-rays: Reviewed from today Assessment and plan End-stage renal disease: Patient will continue with hemodialysis 3 times per week Hypokalemia patient does need some ongoing replacement of potassium which will b e ordered today Patient is currently being followed by Dr. Ramos and her dialysis days are Monday The cardiovascular surgery she does have very limited vascular axis Has history of multiple strokes #12 with residual left-sided weakness which is chronicAccess issues, patient has been advised to get a new vascular graft current access is a permacath Hypertension: Would like to add spironolactone, give her 1 dose of potassium, lipid dependent has been discontinued Anemia in end-stage renal disease current hemoglobin is somewhat better at 8.8 needs monitoring and follow-up, he did receive 40,000 unit erythropoietin As far as anemia is concerned and saturation B12 folic acid are all normal she will need to continue with erythropoietin Some of the anemia is also resulting from recent surgery Malnutrition: Albumin is currently at 2.9 patient needs to see dietitian and ne eds to stay on high protein diet Multiple health issues including diabetes gastroparalysis gastric pacemaker hypertension and multiple strokes Prognosis guarded to poor Objective - Vital Signs Vital signs: Vital Signs - 12hr 09/04/18 09/04/18 09/05/18 21:11 22:35 05:27 Temperature 98.2 F 98.0 F Pulse Rate 91 H 90 92 H Respiratory 20 20 Rate Blood Pressure 151/87 131/71 147/86 O2 Sat by Pulse 100 99 Oximetry 09/05/18 05:59 Temperature Pulse Rate 90 Respiratory Rate Blood Pressure O2 Sat by Pulse Oximetry - Lab 09/05/18 05:34 09/05/18 05:34 Most recent lab results Calcium 9.1 mg/dL (8.4-10.2) 09/05/18 05:34 Phosphorus 5.10 mg/dL (2.5-4.5) H 09/02/18 12:25 Magnesium 2.00 mg/dL (1.7-2.3) 08/25/18 Unknown Medications & Allergies - Medications Allergies/Adverse Reactions: Allergies Fish Containing Products Allergy (Verified 07/10/18 17:56) Rash metformin Allergy (Verified 10/25/16 01:38) Hives metoclopramide HCl [From Reglan] Allergy (Verified 10/25/16 01:38) Hives prochlorperazine [From Compazine] Allergy (Verified 10/25/16 01:38) Hives prochlorperazine edisylate [From Compazine] Allergy (Verified 10/25/16 01:38) Hives prochlorperazine maleate [From Compazine] Allergy (Verified 10/25/16 01:38) Hives shellfish Allergy (Uncoded 07/30/18 12:26) Swelling Home Medications: Home Medications Medication Instructions Recorded Confirmed Last Taken Type traMADol [Ultram 50 MG tab] 50 mg PO Q6H PRN #20 tablet 07/30/18 08/27/18 08/23/18 Rx Apixaban [Eliquis] 2.5 mg PO Q12HR #60 tablet 08/04/18 08/27/18 08/23/18 Rx Aspirin [Aspirin BABY CHEW TAB] 81 mg PO QDAY #30 tab.chew 08/04/18 08/27/18 08/23/18 Rx AtorvaSTATin [Lipitor] 40 mg PO QHS #30 tablet 08/04/18 08/27/18 08/23/18 Rx Labetalol [Normodyne TAB] 300 mg PO TID #90 tablet 08/04/18 08/27/18 08/23/18 Rx Pantoprazole [Protonix TAB] 40 mg PO BID #60 tablet 08/04/18 08/27/18 08/23/18 Rx amLODIPine [Norvasc] 10 mg PO DAILY #30 tablet 08/04/18 08/27/18 08/23/18 Rx cloNIDine [Catapres] 0.2 mg PO TID #90 tablet 08/04/18 08/27/18 08/23/18 Rx hydrALAZINE [Apresoline TAB] 50 mg PO Q8HR #90 tablet 08/04/18 08/27/18 08/23/18 Rx Ondansetron [Zofran ODT TAB] 4 mg PO Q8HR #20 tab.rapdis 08/07/18 08/27/18 08/23/18 Rx HYDROcodone/APAP 5-325 [[place] 1 - 2 each PO Q6HR PRN #14 tablet 08/08/18 08/27/18 08/23/18 Rx 5-325 mg TAB] Promethazine [Phenergan SUPPOS] 25 mg [place] Q6HR PRN #10 supp.rect 08/08/18 08/27/18 08/23/18 Rx Promethazine [Phenergan SUPPOS] 25 mg [place] Q6HR PRN #30 supp.rect 08/23/18 08/27/18 08/23/18 Rx Active Medications: Generic Name Dose Route Start Last Admin Trade Name Freq PRN Reason Stop Dose Admin Acetaminophen 650 mg 08/25/18 23:09 08/30/18 18:38 Tylenol PO 650 mg Q4H PRN Administration Pain MILD(1-3)/Fever >100.5/CHAVES Clonidine HCl 0.2 mg 08/26/18 08:00 09/04/18 22:53 Catapres PO Not Given TID TRUDI Diphenhydramine HCl 25 mg 08/27/18 18:06 09/04/18 04:21 Benadryl PO 25 mg Q6H PRN Administration Itching Heparin Sodium (Porcine) 5,000 unit 08/25/18 23:15 09/04/18 22:46 Heparin SUB-Q Not Given Q12HR TRUDI Heparin Sodium (Porcine) 0 unit 08/31/18 20:23 Heparin 10,000 Units/10 Ml IV ELANA PRN hemodialysis Protocol Hydralazine HCl 50 mg 08/26/18 06:00 09/05/18 05:59 Apresoline PO Not Given Q8HR TRUDI Hydromorphone HCl 0.5 mg 09/01/18 22:00 09/05/18 05:51 Dilaudid IV 0.5 mg Q4H PRN Administration Pain , Severe (7-10) Sodium Chloride 100 mls @ 999 mls/hr 08/26/18 16:39 Nacl 0.9% IV ELANA PRN Hypotension Sodium Chloride 1,000 mls @ 100 mls/hr 08/31/18 01:00 08/31/18 07:15 Nacl 0.9% 1000 Ml IV 100 mls/hr DIRECT TRUDI Administration Insulin Human Lispro 0 unit 08/26/18 07:30 09/04/18 22:47 Humalog SUB-Q Not Given ACHS [facility] Protocol Labetalol HCl 300 mg 08/26/18 08:00 09/04/18 22:51 Normodyne PO Not Given TID [facility] Ondansetron HCl 4 mg 08/26/18 06:00 09/05/18 05:54 Zofran Odt PO Not Given Q8HR [facility] Ondansetron HCl 4 mg 08/31/18 16:24 09/04/18 17:32 Zofran IV 4 mg Q4H PRN Administration Nausea And Vomiting Oxycodone/Acetaminophen 1 tab 08/25/18 23:09 Percocet 5/325 PO Q6H PRN Pain, Moderate (4-6) Pantoprazole Sodium 40 mg 08/26/18 10:00 09/05/18 02:46 Protonix PO Not Given BID [facility] Promethazine HCl 25 mg 08/25/18 23:15 Phenergan [place] Q6HR PRN Vomiting Sodium Chloride 10 ml 08/25/18 23:45 09/04/18 22:52 Sodium Chloride Flush Syringe 10 Ml IV 10 ml BID TRUDI Administration Sodium Chloride 10 ml 08/25/18 23:09 09/03/18 05:36 Sodium Chloride Flush Syringe 10 Ml IV 10 ml PRN PRN Administration LINE FLUSH Tramadol HCl 50 mg 08/25/18 23:15 Ultram PO Q6H PRN Pain, Moderate (4-6)
[2018-09-05] MEDS: HumaLOG SUB-Q SCH ×4 (09:25→22:55)
[2018-09-05] MEDS: ALDACTONE PO SCH (09:59)
[2018-09-05] MEDS: HEPARIN SUB-Q SCH ×2 (10:00→22:56)
[2018-09-05] MEDS: SODIUM CHLORIDE FLUSH SYRINGE 10 ML IV SCH ×2 (10:00→22:54)
--- NOTE | 2018-09-05 16:27 | Anesthesia Day of Surgery ---
Anesthesia Day of Surgery - Day of Surgery Patient Examined: Yes Patient H&P Reviewed: Yes Patient is NPO: Yes Beta Blockers: No Cardiac Clearance: No Pulmonary Clearance: No
--- NOTE | 2018-09-05 16:29 | Anesthesia Consultation ---
Anesthesia Consult and Med Hx Date of service: 09/05/18 - Airway Anesthetic Teeth Evaluation: Good ROM Head & Neck: Adequate Mental/Hyoid Distance: Adequate Mallampati Class: Class III Intubation Access Assessment: Probably Good - Pulmonary Exam CTA: Yes - Cardiac Exam Cardiac Exam: No Murmur - Pre-Operative Health Status ASA Pre-Surgery Classification: ASA4 - Pulmonary Hx Smoking: No Hx Asthma: No COPD: No Hx Pneumonia: No - Cardiovascular System Hx Hypertension: Yes Hx Pacemaker: Yes (gastric pacemaker ) - Central Nervous System CVA: Yes (left hemiparesis ) Hx Psychiatric Problems: No - Endocrine Hx Renal Disease: Yes (ESRD, HD -) Hx End Stage Renal Disease: Yes - Hematic Hx Anemia: Yes Hx Sickle Cell Disease: No - Other Systems Hx Cancer: No
[2018-09-05] MEDS: ZOFRAN IV PRN ×2 (16:41→20:23)
[2018-09-05] MEDS: BENADRYL PO PRN (22:50)
--- NOTE | 2018-09-05 23:51 | Vascular Lab Report ---
FINAL REPORT PROCEDURE: VL ARTERIAL DUPLEX UE BILAT TECHNIQUE: Real-time sonography in multiple planes of the soft tissues of the right arm was performe d with image documentation. CPT 17687 HISTORY: thrombosed AV graft assess arterial flow COMPARISON: No prior studies are available for comparison. FINDINGS: There is complete thrombosis of the basilic vein. There is complete thrombosis of the dialysis graft. The subclavian artery, axillary artery and brachial arteries are patent. The radial and ulnar arteri es are patent. IMPRESSION: There is complete thrombosis of the basilic vein. There is complete thrombosis of the dialysis graft. The subclavian artery, axillary artery and brachial arteries are patent. The radial and ulnar arteri es are patent.
[2018-09-06] MEDS: ZOFRAN IV PRN ×2 (01:26→08:29)
[2018-09-06] MEDS: DILAUDID IV PRN ×4 (01:27→23:00)
[2018-09-06] MEDS: APRESOLINE PO SCH ×4 (01:28→21:43)
[2018-09-06] MEDS ORDERED: ATIVAN IV ONE (03:04)
[2018-09-06] MEDS: ZOFRAN ODT PO SCH ×3 (07:39→21:45)
[2018-09-06] MEDS ORDERED: APRESOLINE IV PRN (08:12)
[2018-09-06] MEDS: NORMODYNE PO SCH ×3 (08:17→21:41)
[2018-09-06] MEDS: CATAPRES PO SCH ×3 (08:17→21:42)
[2018-09-06] MEDS: HumaLOG SUB-Q SCH ×3 (08:30→17:20)
[2018-09-06] MEDS ORDERED: DILAUDID IV PRN (08:53)
[2018-09-06] MEDS ORDERED: ZOFRAN IV PRN (08:53)
[2018-09-06] MEDS ORDERED: NACL 0.9% 1000 ML 1,000 ML IV SCH (09:00)
[2018-09-06] MEDS ORDERED: PEPCID IV NR (09:00)
[2018-09-06] MEDS ORDERED: NEURONTIN PO NR (09:00)
[2018-09-06] MEDS: COZAAR PO SCH (09:00)
[2018-09-06] MEDS: ALDACTONE PO SCH (09:00)
--- NOTE | 2018-09-06 09:28 | Progress Note ---
Subjective Principal diagnosis: Clotted RUE Access Interval history: Patient was seen today for follow-up of multiple renal related issues Patient [facility] Patient is in need for a new graft Previous graft on the right arm was not salvageable Patient also has limited vascular axis per vascular surgery Potassium still continues to be low hemoglobin stable Events of 24 hours vitals labs intake output medications were reviewed Past medical history: Reviewed Family history: Reviewed Social history: Reviewed Allergies: Reviewed Physical examination: Vitals: Reviewed HEENT: No pallor or icterus oral mucosa moist Neck: Supple no JVD no thyromegaly Central venous catheter: Site unremarkable Chest: Bilateral clear to auscultation anteriorly Heart: Regular rate and rhythm S1-S2 heard no S3-S4 Abdomen: Soft nontender no voluntary guarding rigidity rebound Extremity: Dry skin less than 1+ peripheral edema Psychiatric: No evidence of agitation and aggression noted Dermatology: No petechial rashes Labs and x-rays: Reviewed from today Assessment and plan End-stage renal disease continue to dialyze with catheter for now patient has clotted AV axis on the right arm which was not salvageable Continue with hemodialysis Monday and Monday Patient is in need for a new graft for vascular surgery She is currently being followed by Dr. Ramos Hypertension: Accelerated, would like to start her on losartan 50 mg once a day patient has had low blood pressure, graft had clotted with target her blood pressure to be between 1:30 to 140 systolic Anemia in end-stage renal disease current hemoglobin from yesterday is 8.8 which is slowly improving, her T sat is 30% B12 folic acid normal Hypokalemia patient has been started on spironolactone will need a follow-up lab Secondary hyperparathyroidism: Check phosphorus and PTH level periodically Multiple health issues including diabetes gastroparalysis gastric pacemaker hypertension and multiple strokes Prognosis guarded to poor Objective - Vital Signs Vital signs: Vital Signs - 12hr 09/05/18 09/05/18 09/06/18 22:47 23:04 01:27 Pulse Rate 93 H 93 H Respiratory 20 Rate Blood Pressure 149/80 149/80 09/06/18 09/06/18 01:28 07:38 Pulse Rate 68 96 H Respiratory Rate Blood Pressure 138/72 168/92 - Lab 09/05/18 05:34 09/05/18 05:34 Most recent lab results Calcium 9.1 mg/dL (8.4-10.2) 09/05/18 05:34 Phosphorus 5.10 mg/dL (2.5-4.5) H 09/02/18 12:25 Magnesium 2.00 mg/dL (1.7-2.3) 08/25/18 Unknown Medications & Allergies - Medications Allergies/Adverse Reactions: Allergies Fish Containing Products Allergy (Verified 07/10/18 17:56) Rash metformin Allergy (Verified 10/25/16 01:38) Hives metoclopramide HCl [From Reglan] Allergy (Verified 10/25/16 01:38) Hives prochlorperazine [From Compazine] Allergy (Verified 10/25/16 01:38) Hives prochlorperazine edisylate [From Compazine] Allergy (Verified 10/25/16 01:38) Hives prochlorperazine maleate [From Compazine] Allergy (Verified 10/25/16 01:38) Hives shellfish Allergy (Uncoded 07/30/18 12:26) Swelling Home Medications: Home Medications Medication Instructions Recorded Confirmed Last Taken Type traMADol [Ultram 50 MG tab] 50 mg PO Q6H PRN #20 tablet 07/30/18 08/27/18 08/23/18 Rx Apixaban [Eliquis] 2.5 mg PO Q12HR #60 tablet 08/04/18 08/27/18 08/23/18 Rx Aspirin [Aspirin BABY CHEW TAB] 81 mg PO QDAY #30 tab.chew 08/04/18 08/27/18 08/23/18 Rx AtorvaSTATin [Lipitor] 40 mg PO QHS #30 tablet 08/04/18 08/27/18 08/23/18 Rx Labetalol [Normodyne TAB] 300 mg PO TID #90 tablet 08/04/18 08/27/18 08/23/18 Rx Pantoprazole [Protonix TAB] 40 mg PO BID #60 tablet 08/04/18 08/27/18 08/23/18 Rx amLODIPine [Norvasc] 10 mg PO DAILY #30 tablet 08/04/18 08/27/18 08/23/18 Rx cloNIDine [Catapres] 0.2 mg PO TID #90 tablet 08/04/18 08/27/18 08/23/18 Rx hydrALAZINE [Apresoline TAB] 50 mg PO Q8HR #90 tablet 08/04/18 08/27/18 08/23/18 Rx Ondansetron [Zofran ODT TAB] 4 mg PO Q8HR #20 tab.rapdis 08/07/18 08/27/18 08/23/18 Rx HYDROcodone/APAP 5-325 [[place] 1 - 2 each PO Q6HR PRN #14 tablet 08/08/18 08/27/18 08/23/18 Rx 5-325 mg TAB] Promethazine [Phenergan SUPPOS] 25 mg HI Q6HR PRN #10 supp.rect 08/08/18 08/27/18 08/23/18 Rx Promethazine [Phenergan SUPPOS] 25 mg HI Q6HR PRN #30 supp.rect 08/23/18 08/27/18 08/23/18 Rx Active Medications: Generic Name Dose Route Start Last Admin Trade Name Freq PRN Reason Stop Dose Admin Acetaminophen 650 mg 08/25/18 23:09 08/30/18 18:38 Tylenol PO 650 mg Q4H PRN Administration Pain MILD(1-3)/Fever >100.5/CHAVES Clonidine HCl 0.2 mg 08/26/18 08:00 09/06/18 08:17 Catapres PO Not Given TID TRUDI Diphenhydramine HCl 25 mg 08/27/18 18:06 09/05/18 22:50 Benadryl PO 25 mg Q6H PRN Administration Itching Famotidine 20 mg 09/06/18 09:00 Pepcid IV PREOP NR Gabapentin 300 mg 09/06/18 09:00 Neurontin PO PREOP NR Heparin Sodium (Porcine) 5,000 unit 08/25/18 23:15 09/05/18 22:56 Heparin SUB-Q Not Given Q12HR TRUDI Heparin Sodium (Porcine) 0 unit 08/31/18 20:23 Heparin 10,000 Units/10 Ml IV ELANA PRN hemodialysis Protocol Hydralazine HCl 50 mg 08/26/18 06:00 09/06/18 07:38 Apresoline PO Not Given Q8HR TRUDI Hydralazine HCl 10 mg 09/06/18 08:12 Apresoline IV Q4HR PRN Hypertension Hydromorphone HCl 0.5 mg 09/05/18 14:00 09/06/18 08:29 Dilaudid IV 0.5 mg Q4H PRN Administration Pain , Severe (7-10) Hydromorphone HCl 0.5 mg 09/06/18 08:53 Dilaudid IV Q10MIN PRN Pain , Severe (7-10) Sodium Chloride 100 mls @ 999 mls/hr 08/26/18 16:39 Nacl 0.9% IV ELANA PRN Hypotension Sodium Chloride 1,000 mls @ 100 mls/hr 08/31/18 01:00 08/31/18 07:15 Nacl 0.9% 1000 Ml IV 100 mls/hr DIRECT TRUDI Administration Sodium Chloride 1,000 mls @ 100 mls/hr 09/06/18 09:00 Nacl 0.9% 1000 Ml IV DIRECT TRUDI Insulin Human Lispro 0 unit 08/26/18 07:30 09/05/18 22:55 Humalog SUB-Q Not Given ACHS [facility] Protocol Labetalol HCl 300 mg 08/26/18 08:00 09/06/18 08:17 Normodyne PO Not Given TID [facility] Losartan Potassium 50 mg 09/06/18 10:00 Cozaar PO QDAY [facility] Ondansetron HCl 4 mg 08/26/18 06:00 09/06/18 07:39 Zofran Odt PO Not Given Q8HR [facility] Ondansetron HCl 4 mg 08/31/18 16:24 09/06/18 08:29 Zofran IV 4 mg Q4H PRN Administration Nausea And Vomiting Ondansetron HCl 4 mg 09/06/18 08:53 Zofran IV ONCE PRN Nausea And Vomiting Oxycodone/Acetaminophen 1 tab 08/25/18 23:09 Percocet 5/325 PO Q6H PRN Pain, Moderate (4-6) Pantoprazole Sodium 40 mg 08/26/18 10:00 09/05/18 23:07 Protonix PO 40 mg BID TRUDI Administration Promethazine HCl 25 mg 08/25/18 23:15 Phenergan HI Q6HR PRN Vomiting Sodium Chloride 10 ml 08/25/18 23:45 09/05/18 22:54 Sodium Chloride Flush Syringe 10 Ml IV 10 ml BID TRUDI Administration Sodium Chloride 10 ml 08/25/18 23:09/03/18 05:36 Sodium Chloride Flush Syringe 10 Ml IV 10 ml PRN PRN Administration LINE FLUSH Spironolactone 25 mg 09/05/18 10:00 09/05/18 09:59 Aldactone PO Not Given QDAY TRUDI Tramadol HCl 50 mg 08/25/18 23:15 Ultram PO Q6H PRN Pain, Moderate (4-6)
[2018-09-06] MEDS: HEPARIN SUB-Q SCH (10:08)
[2018-09-06 10:12] LABS: Basophils % (Auto) 0.5 % (0.0-1.8); Eosinophils # (Auto) 0.1 K/mm3 (0.0-0.4); Eosinophils % (Auto) 1.6 % (0.0-4.3); Hematocrit 30.2 % (30.3-42.9); Hemoglobin 9.7 gm/dl (10.1-14.3); Lymphocytes # (Auto) 1.6 K/mm3 (1.2-5.4); Lymphocytes % (Auto) 18.4 % (13.4-35.0); Mean Corpuscular HGB Conc 32 % (30-34); Mean Corpuscular Volume 94 fl (79-97); Monocytes # (Auto) 0.8 K/mm3 (0.0-0.8); Monocytes % (Auto) 9.1 % (0.0-7.3); Platelet Count 433 K/mm3 (140-440); Red Blood Count 3.23 M/mm3 (3.65-5.03); Red Cell Distribution Width 15.5 % (13.2-15.2)
[2018-09-06] MEDS ORDERED: ZOFRAN ONE (10:31)
[2018-09-06] MEDS ORDERED: SUBLIMAZE ONE ×3 (10:31→15:14)
[2018-09-06] MEDS ORDERED: DECADRON ONE (10:31)
[2018-09-06] MEDS ORDERED: DIPRIVAN 10 MG/ML IV ONE (10:31)
[2018-09-06 10:35] LABS: Calcium 9.6 mg/dL (8.4-10.2)
[2018-09-06] MEDS ORDERED: MARCAINE 0.5% INFILTRATI ONE ×2 (10:35→10:44)
[2018-09-06] MEDS ORDERED: HEPARIN ONE (10:35)
[2018-09-06] MEDS ORDERED: NACL 0.9% 500 ML 500 ML ONE (10:35)
[2018-09-06] MEDS ORDERED: TRANSDERM-SCOP TD ONE (10:39)
[2018-09-06] MEDS ORDERED: XYLOCAINE 1% 20 mL ONE (10:44)
[2018-09-06] MEDS ORDERED: BENADRYL ONE (10:46)
[2018-09-06] MEDS ORDERED: ANCEF/STERILE WATER 2 GM/20 ML IV NR (11:00)
[2018-09-06] MEDS ORDERED: ZEMURON IV ONE (11:25)
[2018-09-06] MEDS ORDERED: XYLOCAINE MPF 2% ONE (11:26)
[2018-09-06] MEDS ORDERED: NEO SYNEPHRINE ONE (11:38)
[2018-09-06] MEDS ORDERED: MARCAINE-EPI 0.25%-1:200,000 INFILTRATI ONE ×3 (12:16→13:01)
[2018-09-06] MEDS ORDERED: HEPARIN 10,000 UNITS/10 ML IV ONE (12:59)
[2018-09-06] MEDS ORDERED: NACL 0.9% 500 ML IRRIGATION ONE (12:59)
[2018-09-06] MEDS ORDERED: NACL 0.9% IR ONE (13:01)
--- NOTE | 2018-09-06 14:10 | Anesthesia Day of Surgery ---
Anesthesia Day of Surgery - Day of Surgery Patient Examined: Yes Patient H&P Reviewed: Yes Patient is NPO: Yes
--- NOTE | 2018-09-06 14:11 | Anesthesia Consultation ---
Anesthesia Consult and Med Hx Date of service: 09/06/18 - Airway Anesthetic Teeth Evaluation: Poor ROM Head & Neck: Adequate Mental/Hyoid Distance: Adequate Mallampati Class: Class III Intubation Access Assessment: Possibly Difficult - Pulmonary Exam CTA: Yes - Cardiac Exam Cardiac Exam: RRR - Pre-Operative Health Status ASA Pre-Surgery Classification: ASA4 Proposed Anesthetic Plan: General - Pulmonary Hx Smoking: No Hx Asthma: No COPD: No Hx Pneumonia: No - Cardiovascular System Hx Hypertension: Yes Hx Pacemaker: Yes (gastric pacemaker ) - Central Nervous System CVA: Yes (left hemiparesis ) Hx Psychiatric Problems: No - Endocrine Hx Renal Disease: Yes (ESRD, HD -) Hx End Stage Renal Disease: Yes - Hematic Hx Anemia: Yes Hx Sickle Cell Disease: No - Other Systems Hx Cancer: No
--- NOTE | 2018-09-06 14:22 | Progress Note ---
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 No shortness of breath. Patient complains of chronic body pains. She was sent from the dialysis clinic for evaluation of blood pressure also. No fever or chills. she had a right upper extremity AV access placed one year ago and it is a forearm loop graft placed a year ago Patient unfortunately has had multiple attempts to greater than accessible times have failed. Patient does have a Vas-Cath on the groin. Further to a permacath. We'll await discussion with nephrology if this is ideal for patient admitted to be discharged while awake since vein mapping and a new access. We'll continue to check hemoglobin and hematocrit as needed. (1) Anemia Transfused 2 units PRBC H&H stable (2)Dialysis AV fistula malfunction- Thrombosed AV graft Vascular surgery consulted Underwent and open thrombectomy of the right upper ext and right AV graft revision- successful Pt will still need permacath and discontinuation of vascath prior to discharge. Patient to have AV graft today (3) Hypertensive emergency Current Visit: Yes Status: Acute Plan to address problem: Cont antihypertensives Better (4) Diabetic gastroparesis Current Visit: No Status: Chronic Plan to address problem: Patient with Gastric pacemaker (5) HTN (hypertension) Current Visit: No Status: Chronic Qualifiers: Hypertension type: essential hypertension Plan to address problem: Cont antihypertensives (6) Secondary Coagulopathy Current Visit: No Status: Chronic Plan to address problem: Eliquis on hold for expected surgery in a day or 2 (7) Type 2 diabetes mellitus with diabetic chronic kidney disease Current Visit: No Status: Chronic Qualifiers: Chronic kidney disease stage: on chronic dialysis Plan to address problem: ADJUST MEDS (8) End stage renal disease on dialysis Current Visit: No Status: Chronic Plan to address problem: Cont HD (9) HLD (hyperlipidemia) Current Visit: Yes Status: Acute Qualifiers: Hyperlipidemia type: mixed hyperlipidemia Qualified Code(s): E78.2 - Mixed hyperlipidemia Plan to address problem: On Statins (10)CVA (cerebral vascular accident) Current Visit: No Status: Chronic Qualifiers: CVA mechanism: thrombosis Precerebral and cerebral artery: middle cerebral artery Laterality of affected vessel: right Qualified Code(s): I63.311 - Cerebral infarction due to thrombosis of right middle cerebral artery WITH RESIDUAL LEFT HEMAPLEGIA Plan to address problem: Supportive care (11) DVT prophylaxis Current Visit: No Status: Acute Plan to address problem: Heparin 5000 Q12h plan discussed with nursing staff and with Special Makeup Fx Artist Instructor Dr Rowell. Possible DC tommorrow. History Interval history: Patient was seen and evaluated this morning, patient didn't have any new complaints. Hospitalist Physical - Physical exam Narrative exam: Not in cardiopulmonary distress. The patient is obese. Vital signs as documented. Head exam is unremarkable. No scleral icterus . Neck is without jugular venous distension, thyromegaly, or carotid bruits. Lungs are clear to auscultation. Cardiac exam reveals regular rate and Rhythm. First and second heart sounds normal. No murmurs, rubs or gallops. Abdominal exam reveals normal bowel sounds, no masses, no organomegaly and no aortic enlargement. Extremities are nonedematous and both femoral and pedal pulses are normal. 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 No focal weakness. - Constitutional Vitals: Temp Pulse Resp BP Pulse Ox 99.6 F 90 16 151/83 100 09/06/18 10:00 09/06/18 10:01 09/06/18 10:00 09/06/18 10:01 09/06/18 10:00 General appearance: Present: no acute distress, well-nourished Results - Labs CBC & Chem 7: 09/06/18 09:40 09/06/18 09:40 Labs: Laboratory Last Values WBC 8.5 K/mm3 (4.5-11.0) 09/06/18 09:40 RBC 3.23 M/mm3 (3.65-5.03) L 09/06/18 09:40 Hgb 9.7 gm/dl (10.1-14.3) L 09/06/18 09:40 Hct 30.2 % (30.3-42.9) L 09/06/18 09:40 MCV 94 fl (79-97) 09/06/18 09:40 MCH 30 pg (28-32) 09/06/18 09:40 MCHC 32 % (30-34) 09/06/18 09:40 RDW 15.5 % (13.2-15.2) H 09/06/18 09:40 Plt Count 433 K/mm3 (140-440) 09/06/18 09:40 Lymph % (Auto) 18.4 % (13.4-35.0) 09/06/18 09:40 [place] % (Auto) 9.1 % (0.0-7.3) H 09/06/18 09:40 Eos % (Auto) 1.6 % (0.0-4.3) 09/06/18 09:40 Baso % (Auto) 0.5 % (0.0-1.8) 09/06/18 09:40 Lymph # 1.6 K/mm3 (1.2-5.4) 09/06/18 09:40 [place] # 0.8 K/mm3 (0.0-0.8) 09/06/18 09:40 Eos # 0.1 K/mm3 (0.0-0.4) 09/06/18 09:40 Baso # 0.0 K/mm3 (0.0-0.1) 09/06/18 09:40 Seg Neutrophils % 70.4 % (40.0-70.0) H 09/06/18 09:40 Seg Neutrophils # 6.0 K/mm3 (1.8-7.7) 09/06/18 09:40 PT 12.3 Sec. (12.2-14.9) 08/25/18 Unknown INR 0.88 (0.87-1.13) 08/25/18 Unknown APTT 29.6 Sec. (24.2-36.6) 08/25/18 Unknown Sodium 142 mmol/L (137-145) 09/06/18 09:40 Potassium 3.8 mmol/L (3.6-5.0) 09/06/18 09:40 Chloride 100.2 mmol/L (98-107) 09/06/18 09:40 Carbon Dioxide 26 mmol/L (22-30) 09/06/18 09:40 Anion Gap 20 mmol/L 09/06/18 09:40 BUN 15 mg/dL (7-17) 09/06/18 09:40 Creatinine 4.7 mg/dL (0.7-1.2) H 09/06/18 09:40 Estimated GFR 13 ml/min 09/06/18 09:40 BUN/Creatinine Ratio 3 % 09/06/18 09:40 Glucose 104 mg/dL (65-100) H 09/06/18 09:40 POC Glucose 83 (70-105) 09/06/18 08:02 Hemoglobin A1c 6.8 % (4-6) H 08/26/18 06:26 Calcium 9.6 mg/dL (8.4-10.2) 09/06/18 09:40 Phosphorus 3.70 mg/dL (2.5-4.5) 09/06/18 09:40 Magnesium 2.00 mg/dL (1.7-2.3) 08/25/18 Unknown Iron 30 ug/dL (37-170) L 09/02/18 12:25 TIBC 106 mcg/dL (250-450) L 09/02/18 12:25 % Saturation 28.30 % 09/02/18 12:25 Transferrin 91 mg/dl (192-382) L 09/02/18 12:25 Ferritin 1360.0 ng/mL (13.0-400.0) H 09/02/18 12:25 Total Bilirubin 0.20 mg/dL (0.1-1.2) 09/02/18 12:25 AST 6 units/L (5-40) 09/02/18 12:25 ALT < 5 units/L (7-56) L 09/02/18 12:25 Alkaline Phosphatase 75 units/L (35-129) 09/02/18 12:25 Total Protein 7.1 g/dL (6.3-8.2) 09/02/18 12:25 Albumin 2.9 g/dL (3.9-5) L 09/02/18 12:25 Albumin/Globulin Ratio 0.7 % 09/02/18 12:25 Vitamin B12 720.9 pg/mL (211-911) 09/02/18 12:25 Folate 8.47 ng/mL (7.3-26.0) 09/02/18 12:25 PTH Intact 454.3 pg/mL (15-65) H 09/06/18 09:40 Hepatitis A IgM Ab Non-reactive (NonReactive) 09/03/18 19:43 Hep Bs Antigen Non-reactive (Negative) 09/03/18 19:43 Hep B Core IgM Ab Non-reactive (NonReactive) 09/03/18 19:43 Hepatitis C Antibody Non-reactive (NonReactive) 09/03/18 19:43 Blood Type AB POSITIVE 08/31/18 08:05 Antibody Screen Negative 08/31/18 08:05 Crossmatch See Detail 08/31/18 08:05 Nutrition/Malnutrition Assess - Dietary Evaluation Nutrition/Malnutrition Findings: Nutrition Notes Start: 08/27/18 16:17 Freq: Status: Active Protocol: Document 09/06/18 09:52 LM (Rec: 09/06/18 10:31 LM [id number]) Co-Sign 09/06/18 09:52 OL Nutrition Notes Initial or Follow up Reassessment Current Diagnosis CKD (stage V CKD) Diabetes Hypertension Stroke Other Pertinent Diagnosis Diabetic gastroparesis Current Diet NPO after midnight Labs/Tests Reviewed Pertinent Medications Reviewed Height 5 ft 4 in Weight 83.7 kg [place] Body Weight (lbs) 120.0 BMI 31.6 Subjective/Other Information Pt still remains NPO due to new AVG placement today. Percent of energy/protein needs met: 0%/0% Burn Absent Trauma Absent #1 Nutrition Diagnosis Increased nutrient needs ( specify in comment below) Diagnosis Progress(for reassessment Continues documentation) Nutrition Intervention Change Diet Order: Advance to renal diet per MD Goal #1 Diet advancement Anticipated Discharge Needs: Renal diet Follow-Up By: 09/10/18 Additional Comments F/U for diet advancement, PO intakes, and need for ONS
[2018-09-06] MEDS ORDERED: BLOXIVERZ ONE (15:39)
[2018-09-06] MEDS ORDERED: ROBINUL ONE (15:40)
--- NOTE | 2018-09-06 15:58 | Operative Report ---
Operative Report Operative Report: Operative note: Date: 09/06/2018 Preoperative diagnosis: Endstage renal disease on hemodialysis. Failed right forearm loop AV graft. Postoperative diagnosis: Same. Operation: Left arm AV graft creation Surgeon: January Guerrero. Asst.: Anesthesia: Gen. EBL: 50 mL Findings: At the end of procedure excellent thrill in the graft and with palpable radial pulse confirmed with Doppler Indications: 37-year-old female with end-stage renal disease on hemodialysis via previously created forearm right AV graft loop that was recently revised and still failed. She underwent femoral PermCath placement and set up for creation of new AV graft because of her residence at this facility and possible complication of setting up a follow-up and further scheduling patient was discussed risks, benefits and alternatives to procedure and possibility of placement right versus left upper extremity AV graft depending on preoperative ultrasound results. Patient agreed and signed informed consent. Operative details: Patient was brought to the operating room and placed in supine position with left arm on an arm table. Ultrasound was performed locating brachial artery and marked as well as axillary vein. Ultrasound of right upper extremity axillary vein showed noncompressibility. It was decided to get AV graft creation on the left upper cavity. That was discussed with the patient again and she confirmed. Left arm was then prepped and draped in sterile fashion. Timeout was performed and all team members in agreement. First incision was created with 15 blade over medial side of elbow crease in vertical fashion and carried down with electrocautery. Brachial l artery was dissected and taken distally and proximally on vessel loops. Next, incision was created with 15 blade over medial upper part of arm in the vertical fashion and carried down with electrocautery. With further dissection using Metzenbaum scissors axillary vein was dissected . It was taken on vessel loop. 4-7 millimeter AcuSeal graft was tunneled with Laura Wick tunneler in a curvilinear fashion. At this moment patient was given 3000 units of heparin and allowed to circulate for 3 minutes. Proximal and distal controls were gained. 4 mm portion was beveled at the arterial side. Arteriotomy was created with 11 blade and extended with Patel scissors. Anastomosis was created with 6-0 Prolene in circumferential fashion. Graft was open, clamped at the arterial side and flushed with heparinized saline. The next step, graft was transected beveling at the planned venous anastomosis. The vein was clamped with Satinsky clamp and DeBakey vascular clamp gaining distal and proximal controls. Venotomy was created with 11 blade and carried with Patel scissors. Circumferential anastomosis was created with 6-0 Prolene and flushed before completion. Both anastomosis were checked for hemostasis. Graft area was palpated and good thrill appreciated. Sights were irrigated and checked for hemostasis. Incisions were closed in layers with 3-0 Vicryl interrupted dermal and 4-0 Monocryl running subcuticular. Dermabond was applied. radial pulse was palpated at the end of procedure as well as graft thrill. All needles and sponge counts were correct. Patient tolerated the procedure well and was transferred to PACU in stable condition.
[2018-09-06] MEDS ORDERED: D50W (25GM) Syringe IV ONE ×2 (16:08→17:00)
[2018-09-06] MEDS: PROTONIX PO SCH ×2 (19:08→21:43)
[2018-09-06] MEDS: SODIUM CHLORIDE FLUSH SYRINGE 10 ML IV SCH ×2 (20:16→21:44)
[2018-09-06] MEDS: BENADRYL PO PRN (23:00)
[2018-09-07] MEDS: HEPARIN SUB-Q SCH ×3 (00:29→21:39)
[2018-09-07] MEDS: HumaLOG SUB-Q SCH ×7 (00:29→21:45)
[2018-09-07] MEDS: DILAUDID IV PRN ×5 (03:07→20:37)
[2018-09-07] MEDS: ZOFRAN ODT PO SCH ×3 (05:47→21:40)
[2018-09-07] MEDS: APRESOLINE PO SCH ×3 (05:47→21:40)
--- NOTE | 2018-09-07 08:51 | Progress Note ---
Subjective Principal diagnosis: Clotted RUE Access Interval history: Patient was seen today for follow-up of multiple renal related issues receiving hemodialysis with permacath Complicated issues with access Followed by Dr. Ramos Events of 24 hours vitals labs intake output medications were reviewed Past medical history: Reviewed Family history: Reviewed Social history: Reviewed Allergies: Reviewed Physical examination: Vitals: Reviewed HEENT: No pallor or icterus oral mucosa moist Neck: Supple no JVD no thyromegaly Central venous catheter: Site unremarkable Chest: Bilateral clear to auscultation anteriorly Heart: Regular rate and rhythm S1-S2 heard no S3-S4 Abdomen: Soft nontender no voluntary guarding rigidity rebound Extremity: Dry skin less than 1+ peripheral edema Psychiatric: No evidence of agitation and aggression noted Dermatology: No petechial rashes Labs and x-rays: Reviewed from today Assessment and plan End-stage renal disease continue to dialyze with catheter for now patient has clotted AVG on the right arm which was not salvageable Hemodialysis Monday status post needle graft creation failed right upper extremity graft, despite 2 attempts Current dialysis access: Central venous catheter left leg Poor vasculature and upper extremity Stable from a renal standpoint Hypertension to monitor and follow Patient is otherwise stable from a renal standpoint Anemia in end-stage renal disease current hemoglobin from yesterday is 8.8 which is slowly improving, her T sat is 30% B12 folic acid normal Hypokalemia patient has been started on spironolactone will need a follow-up lab Secondary hyperparathyroidism: Check phosphorus and PTH level periodically needs to follow up with vascular surgery, due to complicated vascular issues Multiple health issues including diabetes gastroparalysis gastric pacemaker hypertension and multiple strokes Prognosis guarded to poor Objective - Vital Signs Vital signs: Vital Signs - 12hr 09/06/18 09/06/18 09/06/18 21:09 21:41 21:42 Temperature 98.8 F Pulse Rate 103 H 106 H 106 H Respiratory 20 Rate Blood Pressure 152/102 152/102 152/102 O2 Sat by Pulse 100 Oximetry 09/06/18 09/06/18 09/07/18 21:43 23:00 03:37 Temperature Pulse Rate 106 H Respiratory 18 18 Rate Blood Pressure 152/102 O2 Sat by Pulse Oximetry 09/07/18 09/07/18 05:47 05:48 Temperature 98.1 F Pulse Rate 92 H 92 H Respiratory 20 Rate Blood Pressure 159/92 159/92 O2 Sat by Pulse 99 Oximetry - Lab 09/06/18 09:40 09/06/18 09:40 Most recent lab results Calcium 9.6 mg/dL (8.4-10.2) 09/06/18 09:40 Phosphorus 3.70 mg/dL (2.5-4.5) 09/06/18 09:40 Magnesium 2.00 mg/dL (1.7-2.3) 08/25/18 Unknown Medications & Allergies - Medications Allergies/Adverse Reactions: Allergies Fish Containing Products Allergy (Verified 07/10/18 17:56) Rash metformin Allergy (Verified 10/25/16 01:38) Hives metoclopramide HCl [From Reglan] Allergy (Verified 10/25/16 01:38) Hives prochlorperazine [From Compazine] Allergy (Verified 10/25/16 01:38) Hives prochlorperazine edisylate [From Compazine] Allergy (Verified 10/25/16 01:38) Hives prochlorperazine maleate [From Compazine] Allergy (Verified 10/25/16 01:38) Hives haloperidol [From Haldol] Adverse Reaction (Verified 09/06/18 10:05) Unknown PT STATES HER TEETH CHATTERED AND HER "EYES DRIFTED OFF" shellfish Allergy (Uncoded 07/30/18 12:26) Swelling Home Medications: Home Medications Medication Instructions Recorded Confirmed Last Taken Type traMADol [Ultram 50 MG tab] 50 mg PO Q6H PRN #20 tablet 07/30/18 08/27/18 08/23/18 Rx Apixaban [Eliquis] 2.5 mg PO Q12HR #60 tablet 08/04/18 08/27/18 08/23/18 Rx Aspirin [Aspirin BABY CHEW TAB] 81 mg PO QDAY #30 tab.chew 08/04/18 08/27/18 08/23/18 Rx AtorvaSTATin [Lipitor] 40 mg PO QHS #30 tablet 08/04/18 08/27/18 08/23/18 Rx Labetalol [Normodyne TAB] 300 mg PO TID #90 tablet 08/04/18 08/27/18 08/23/18 Rx Pantoprazole [Protonix TAB] 40 mg PO BID #60 tablet 08/04/18 08/27/18 08/23/18 Rx amLODIPine [Norvasc] 10 mg PO DAILY #30 tablet 08/04/18 08/27/18 08/23/18 Rx cloNIDine [Catapres] 0.2 mg PO TID #90 tablet 08/04/18 08/27/18 08/23/18 Rx hydrALAZINE [Apresoline TAB] 50 mg PO Q8HR #90 tablet 08/04/18 08/27/18 08/23/18 Rx Ondansetron [Zofran ODT TAB] 4 mg PO Q8HR #20 tab.rapdis 08/07/18 08/27/18 08/23/18 Rx HYDROcodone/APAP 5-325 [[place] 1 - 2 each PO Q6HR PRN #14 tablet 08/08/18 08/27/18 08/23/18 Rx 5-325 mg TAB] Promethazine [Phenergan SUPPOS] 25 mg IA Q6HR PRN #10 supp.rect 08/08/18 08/27/18 08/23/18 Rx Promethazine [Phenergan SUPPOS] 25 mg IA Q6HR PRN #30 supp.rect 08/23/18 08/27/18 08/23/18 Rx Active Medications: Generic Name Dose Route Start Last Admin Trade Name Freq PRN Reason Stop Dose Admin Acetaminophen 650 mg 08/25/18 23:09 08/30/18 18:38 Tylenol PO 650 mg Q4H PRN Administration Pain MILD(1-3)/Fever >100.5/CHAVES Clonidine HCl 0.2 mg 08/26/18 08:00 09/06/18 21:42 Catapres PO 0.2 mg TID TRUDI Administration Diphenhydramine HCl 25 mg 08/27/18 18:06 09/06/18 23:00 Benadryl PO 25 mg Q6H PRN Administration Itching Heparin Sodium (Porcine) 5,000 unit 08/25/18 23:15 09/07/18 00:29 Heparin SUB-Q Not Given Q12HR TRUDI Heparin Sodium (Porcine) 0 unit 08/31/18 20:23 Heparin 10,000 Units/10 Ml IV ELANA PRN hemodialysis Protocol Hydralazine HCl 50 mg 08/26/18 06:00 09/07/18 05:47 Apresoline PO 50 mg Q8HR TRUDI Administration Hydralazine HCl 10 mg 09/06/18 08:12 Apresoline IV Q4HR PRN Hypertension Hydromorphone HCl 0.5 mg 09/05/18 14:00 09/07/18 03:07 Dilaudid IV 0.5 mg Q4H PRN Administration Pain , Severe (7-10) Sodium Chloride 100 mls @ 999 mls/hr 08/26/18 16:39 Nacl 0.9% IV ELANA PRN Hypotension Sodium Chloride 1,000 mls @ 100 mls/hr 09/06/18 09:00 09/06/18 10:25 Nacl 0.9% 1000 Ml IV 100 mls/hr DIRECT TRUDI Administration Insulin Human Lispro 0 unit 08/26/18 07:30 09/07/18 00:29 Humalog SUB-Q Not Given ACHS [facility] Protocol Labetalol HCl 300 mg 08/26/18 08:00 09/06/18 21:41 Normodyne PO 300 mg TID TRUDI Administration Losartan Potassium 50 mg 09/06/18 10:00 09/06/18 09:00 Cozaar PO Not Given QDAY TRUDI Ondansetron HCl 4 mg 08/26/18 06:00 09/07/18 05:47 Zofran Odt PO 4 mg Q8HR TRUDI Administration Ondansetron HCl 4 mg 08/31/18 16:24 09/06/18 08:29 Zofran IV 4 mg Q4H PRN Administration Nausea And Vomiting Oxycodone/Acetaminophen 1 tab 08/25/18 23:09 Percocet 5/325 PO Q6H PRN Pain, Moderate (4-6) Pantoprazole Sodium 40 mg 08/26/18 10:00 09/06/18 21:43 Protonix PO 40 mg BID TRUDI Administration Promethazine HCl 25 mg 08/25/18 23:15 Phenergan IA Q6HR PRN Vomiting Sodium Chloride 10 ml 08/25/18 23:45 09/06/18 21:44 Sodium Chloride Flush Syringe 10 Ml IV 10 ml BID TRUDI Administration Sodium Chloride 10 ml 08/25/18 23:09 09/03/18 05:36 Sodium Chloride Flush Syringe 10 Ml IV 10 ml PRN PRN Administration LINE FLUSH Spironolactone 25 mg 09/05/18 10:00 09/06/18 09:00 Aldactone PO Not Given QDAY TRUDI Tramadol HCl 50 mg 08/25/18 23:15 Ultram PO Q6H PRN Pain, Moderate (4-6)
[2018-09-07] MEDS: SODIUM CHLORIDE FLUSH SYRINGE 10 ML IV SCH ×2 (09:02→21:46)
[2018-09-07] MEDS: CATAPRES PO SCH ×3 (09:21→20:09)
[2018-09-07] MEDS: NORMODYNE PO SCH ×3 (09:22→20:11)
[2018-09-07] MEDS ORDERED: NACL 0.9 (PRIMING MACHINE ONLY DIALYSIS) MC ONE (11:27)
--- NOTE | 2018-09-07 15:31 | Progress Note ---
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 No shortness of breath. Patient complains of chronic body pains. She was sent from the dialysis clinic for evaluation of blood pressure also. No fever or chills. she had a right upper extremity AV access placed one year ago and it is a forearm loop graft placed a year ago Patient unfortunately has had multiple attempts to greater than accessible times have failed. Patient does have a Vas-Cath on the groin. Further to a permacath. We'll await discussion with nephrology if this is ideal for patient admitted to be discharged while awake since vein mapping and a new access. We'll continue to check hemoglobin and hematocrit as needed. (1) Anemia Transfused 2 units PRBC H&H stable (2)Dialysis AV fistula malfunction- Thrombosed AV graft Vascular surgery consulted Underwent and open thrombectomy of the right upper ext and right AV graft revision- unsuccessful Pt will still need permacath and discontinuation of vascath prior to discharge, called the combat systems operator mine warfare, said will talk with vascular. Patient to have AV graft done (3) Hypertensive emergency Current Visit: Yes Status: Acute Plan to address problem: Cont antihypertensives Better (4) Diabetic gastroparesis Current Visit: No Status: Chronic Plan to address problem: Patient with Gastric pacemaker (5) HTN (hypertension) Current Visit: No Status: Chronic Qualifiers: Hypertension type: essential hypertension Plan to address problem: Cont antihypertensives (6) Secondary Coagulopathy Current Visit: No Status: Chronic Plan to address problem: Eliquis on hold for expected surgery in a day or 2 (7) Type 2 diabetes mellitus with diabetic chronic kidney disease Current Visit: No Status: Chronic Qualifiers: Chronic kidney disease stage: on chronic dialysis Plan to address problem: ADJUST MEDS (8) End stage renal disease on dialysis Current Visit: No Status: Chronic Plan to address problem: Cont HD (9) HLD (hyperlipidemia) Current Visit: Yes Status: Acute Qualifiers: Hyperlipidemia type: mixed hyperlipidemia Qualified Code(s): E78.2 - Mixed hyperlipidemia Plan to address problem: On Statins (10)CVA (cerebral vascular accident) Current Visit: No Status: Chronic Qualifiers: CVA mechanism: thrombosis Precerebral and cerebral artery: middle cerebral artery Laterality of affected vessel: right Qualified Code(s): I63.311 - Cerebral infarction due to thrombosis of right middle cerebral artery WITH RESIDUAL LEFT HEMAPLEGIA Plan to address problem: Supportive care (11) DVT prophylaxis Current Visit: No Status: Acute Plan to address problem: Heparin 5000 Q12h plan discussed with nursing staff and with Granular Operator Dr Rowell. Possible DC tommorrow. History Interval history: Patient was seen and evaluated this morning, patient didn't have any new complaints. Hospitalist Physical - Physical exam Narrative exam: Not in cardiopulmonary distress. The patient is obese. Vital signs as documented. Head exam is unremarkable. No scleral icterus . Neck is without jugular venous distension, thyromegaly, or carotid bruits. Lungs are clear to auscultation. Cardiac exam reveals regular rate and Rhythm. First and second heart sounds normal. No murmurs, rubs or gallops. Abdominal exam reveals normal bowel sounds, no masses, no organomegaly and no aortic enlargement. Extremities are nonedematous and both femoral and pedal pulses are normal. ASSOCIATE ARTISTIC DIRECTOR: Alert and oriented 3. No focal weakness. - Constitutional Vitals: Temp Pulse Resp BP Pulse Ox 98.4 F 78 18 118/62 99 09/07/18 10:08 09/07/18 13:40 09/07/18 12:56 09/07/18 13:40 09/07/18 05:48 General appearance: Present: no acute distress, well-nourished Results - Labs CBC & Chem 7: 09/06/18 09:40 09/06/18 09:40 Labs: Laboratory Last Values WBC 8.5 K/mm3 (4.5-11.0) 09/06/18 09:40 RBC 3.23 M/mm3 (3.65-5.03) L 09/06/18 09:40 Hgb 9.7 gm/dl (10.1-14.3) L 09/06/18 09:40 Hct 30.2 % (30.3-42.9) L 09/06/18 09:40 MCV 94 fl (79-97) 09/06/18 09:40 MCH 30 pg (28-32) 09/06/18 09:40 MCHC 32 % (30-34) 09/06/18 09:40 RDW 15.5 % (13.2-15.2) H 09/06/18 09:40 Plt Count 433 K/mm3 (140-440) 09/06/18 09:40 Lymph % (Auto) 18.4 % (13.4-35.0) 09/06/18 09:40 [place] % (Auto) 9.1 % (0.0-7.3) H 09/06/18 09:40 Eos % (Auto) 1.6 % (0.0-4.3) 09/06/18 09:40 Baso % (Auto) 0.5 % (0.0-1.8) 09/06/18 09:40 Lymph # 1.6 K/mm3 (1.2-5.4) 09/06/18 09:40 [place] # 0.8 K/mm3 (0.0-0.8) 09/06/18 09:40 Eos # 0.1 K/mm3 (0.0-0.4) 09/06/18 09:40 Baso # 0.0 K/mm3 (0.0-0.1) 09/06/18 09:40 Seg Neutrophils % 70.4 % (40.0-70.0) H 09/06/18 09:40 Seg Neutrophils # 6.0 K/mm3 (1.8-7.7) 09/06/18 09:40 PT 12.3 Sec. (12.2-14.9) 08/25/18 Unknown INR 0.88 (0.87-1.13) 08/25/18 Unknown APTT 29.6 Sec. (24.2-36.6) 08/25/18 Unknown Sodium 142 mmol/L (137-145) 09/06/18 09:40 Potassium 3.8 mmol/L (3.6-5.0) 09/06/18 09:40 Chloride 100.2 mmol/L (98-107) 09/06/18 09:40 Carbon Dioxide 26 mmol/L (22-30) 09/06/18 09:40 Anion Gap 20 mmol/L 09/06/18 09:40 BUN 15 mg/dL (7-17) 09/06/18 09:40 Creatinine 4.7 mg/dL (0.7-1.2) H 09/06/18 09:40 Estimated GFR 13 ml/min 09/06/18 09:40 BUN/Creatinine Ratio 3 % 09/06/18 09:40 Glucose 104 mg/dL (65-100) H 09/06/18 09:40 POC Glucose 163 (70-105) H 09/07/18 07:54 Hemoglobin A1c 6.8 % (4-6) H 08/26/18 06:26 Calcium 9.6 mg/dL (8.4-10.2) 09/06/18 09:40 Phosphorus 3.70 mg/dL (2.5-4.5) 09/06/18 09:40 Magnesium 2.00 mg/dL (1.7-2.3) 08/25/18 Unknown Iron 30 ug/dL (37-170) L 09/02/18 12:25 TIBC 106 mcg/dL (250-450) L 09/02/18 12:25 % Saturation 28.30 % 09/02/18 12:25 Transferrin 91 mg/dl (192-382) L 09/02/18 12:25 Ferritin 1360.0 ng/mL (13.0-400.0) H 09/02/18 12:25 Total Bilirubin 0.20 mg/dL (0.1-1.2) 09/02/18 12:25 AST 6 units/L (5-40) 09/02/18 12:25 ALT < 5 units/L (7-56) L 09/02/18 12:25 Alkaline Phosphatase 75 units/L (35-129) 09/02/18 12:25 Total Protein 7.1 g/dL (6.3-8.2) 09/02/18 12:25 Albumin 2.9 g/dL (3.9-5) L 09/02/18 12:25 Albumin/Globulin Ratio 0.7 % 09/02/18 12:25 Vitamin B12 720.9 pg/mL (211-911) 09/02/18 12:25 Folate 8.47 ng/mL (7.3-26.0) 09/02/18 12:25 PTH Intact 454.3 pg/mL (15-65) H 09/06/18 09:40 Hepatitis A IgM Ab Non-reactive (NonReactive) 09/03/18 19:43 Hep Bs Antigen Non-reactive (Negative) 09/03/18 19:43 Hep B Core IgM Ab Non-reactive (NonReactive) 09/03/18 19:43 Hepatitis C Antibody Non-reactive (NonReactive) 09/03/18 19:43 Blood Type AB POSITIVE 08/31/18 08:05 Antibody Screen Negative 08/31/18 08:05 Crossmatch See Detail 08/31/18 08:05 Nutrition/Malnutrition Assess - Dietary Evaluation Nutrition/Malnutrition Findings: Nutrition Notes Start: 08/27/18 16:17 Freq: Status: Active Protocol: Document 09/06/18 09:52 LM (Rec: 09/06/18 10:31 LM [id number]) Co-Sign 09/06/18 09:52 OL Nutrition Notes Initial or Follow up Reassessment Current Diagnosis CKD (stage V CKD) Diabetes Hypertension Stroke Other Pertinent Diagnosis Diabetic gastroparesis Current Diet NPO after midnight Labs/Tests Reviewed Pertinent Medications Reviewed Height 5 ft 4 in Weight 83.7 kg [place] Body Weight (lbs) 120.0 BMI 31.6 Subjective/Other Information Pt still remains NPO due to new AVG placement today. Percent of energy/protein needs met: 0%/0% Burn Absent Trauma Absent #1 Nutrition Diagnosis Increased nutrient needs ( specify in comment below) Diagnosis Progress(for reassessment Continues documentation) Nutrition Intervention Change Diet Order: Advance to renal diet per MD Goal #1 Diet advancement Anticipated Discharge Needs: Renal diet Follow-Up By: 09/10/18 Additional Comments F/U for diet advancement, PO intakes, and need for ONS
[2018-09-07] MEDS: COZAAR PO SCH (15:39)
[2018-09-07] MEDS ORDERED: VASELINE LIP THERAPY TP PRN (15:40)
--- NOTE | 2018-09-07 15:57 | Progress Note ---
Assessment and Plan s/p left AVG creation brachio axillary with accuseal. This is early access AVG Patient will continue HD via permcath, although her left arm AVG may be accessed if HD is ok using accuseal. f/u in our office Subjective Date of service: 09/07/18 Principal diagnosis: Clotted RUE Access Interval history: Patientis dooing well. Pain at the tunnel site on the left. No pain in the hand, no signs of steal. Objective - Exam Narrative Exam: Patient has bruit + and palpable radial pulse on the left UE. - Constitutional Vitals: Vital Signs - 12hr 09/07/18 09/07/18 09/07/18 05:47 05:48 10:08 Temperature 98.1 F 98.4 F Pulse Rate 92 H 92 H 89 Respiratory 20 18 Rate Blood Pressure 159/92 159/92 160/87 Blood Pressure [Right] O2 Sat by Pulse 99 Oximetry 09/07/18 09/07/18 09/07/18 10:15 10:30 10:45 Temperature Pulse Rate 87 85 86 Respiratory Rate Blood Pressure 158/76 121/69 132/58 Blood Pressure [Right] O2 Sat by Pulse Oximetry 09/07/18 09/07/18 09/07/18 11:00 11:15 11:30 Temperature Pulse Rate 91 H 76 88 Respiratory Rate Blood Pressure 134/46 158/104 116/40 Blood Pressure [Right] O2 Sat by Pulse Oximetry 09/07/18 09/07/18 09/07/18 11:45 12:00 12:15 Temperature Pulse Rate 95 H 87 97 H Respiratory Rate Blood Pressure 116/61 139/59 103/74 Blood Pressure [Right] O2 Sat by Pulse Oximetry 09/07/18 09/07/18 09/07/18 12:30 12:45 12:56 Temperature Pulse Rate 87 94 H Respiratory 18 Rate Blood Pressure 162/57 122/64 Blood Pressure [Right] O2 Sat by Pulse Oximetry 09/07/18 09/07/18 09/07/18 13:00 13:15 13:30 Temperature Pulse Rate 83 81 87 Respiratory Rate Blood Pressure 155/57 121/82 128/54 Blood Pressure [Right] O2 Sat by Pulse Oximetry 09/07/18 09/07/18 09/07/18 13:40 13:45 15:36 Temperature 98.2 F Pulse Rate 78 89 91 H Respiratory 18 Rate Blood Pressure 118/62 123/62 Blood Pressure 118/60 [Right] O2 Sat by Pulse Oximetry 09/07/18 15:39 Temperature Pulse Rate 91 H Respiratory Rate Blood Pressure 118/60 Blood Pressure [Right] O2 Sat by Pulse Oximetry - Labs CBC & Chem 7: 09/06/18 09:40 09/06/18 09:40 Labs: Abnormal lab results 09/06/18 09/06/18 09/07/18 Range/Units 16:46 21:19 07:54 POC Glucose 151 H 184 H 163 H (70-105) Medications & Allergies - Medications Allergies/Adverse Reactions: Allergies Fish Containing Products Allergy (Verified 07/10/18 17:56) Rash metformin Allergy (Verified 10/25/16 01:38) Hives metoclopramide HCl [From Reglan] Allergy (Verified 10/25/16 01:38) Hives prochlorperazine [From Compazine] Allergy (Verified 10/25/16 01:38) Hives prochlorperazine edisylate [From Compazine] Allergy (Verified 10/25/16 01:38) Hives prochlorperazine maleate [From Compazine] Allergy (Verified 10/25/16 01:38) Hives haloperidol [From Haldol] Adverse Reaction (Verified 09/06/18 10:05) Unknown PT STATES HER TEETH CHATTERED AND HER "EYES DRIFTED OFF" shellfish Allergy (Uncoded 07/30/18 12:26) Swelling Home Medications: Home Medications Medication Instructions Recorded Confirmed Last Taken Type traMADol [Ultram 50 MG tab] 50 mg PO Q6H PRN #20 tablet 07/30/18 08/27/18 08/23/18 Rx Apixaban [Eliquis] 2.5 mg PO Q12HR #60 tablet 08/04/18 08/27/18 08/23/18 Rx Aspirin [Aspirin BABY CHEW TAB] 81 mg PO QDAY #30 tab.chew 08/04/18 08/27/18 08/23/18 Rx AtorvaSTATin [Lipitor] 40 mg PO QHS #30 tablet 08/04/18 08/27/18 08/23/18 Rx Labetalol [Normodyne TAB] 300 mg PO TID #90 tablet 08/04/18 08/27/18 08/23/18 Rx Pantoprazole [Protonix TAB] 40 mg PO BID #60 tablet 08/04/18 08/27/18 08/23/18 Rx amLODIPine [Norvasc] 10 mg PO DAILY #30 tablet 08/04/18 08/27/18 08/23/18 Rx cloNIDine [Catapres] 0.2 mg PO TID #90 tablet 08/04/18 08/27/18 08/23/18 Rx hydrALAZINE [Apresoline TAB] 50 mg PO Q8HR #90 tablet 08/04/18 08/27/18 08/23/18 Rx Ondansetron [Zofran ODT TAB] 4 mg PO Q8HR #20 tab.rapdis 08/07/18 08/27/18 08/23/18 Rx HYDROcodone/APAP 5-325 [[place] 1 - 2 each PO Q6HR PRN #14 tablet 08/08/18 08/27/18 08/23/18 Rx 5-325 mg TAB] Promethazine [Phenergan SUPPOS] 25 mg ND Q6HR PRN #10 supp.rect 08/08/18 08/27/18 08/23/18 Rx Promethazine [Phenergan SUPPOS] 25 mg ND Q6HR PRN #30 supp.rect 08/23/18 08/27/18 08/23/18 Rx Active Medications: Generic Name Dose Route Start Last Admin Trade Name Freq PRN Reason Stop Dose Admin Acetaminophen 650 mg 08/25/18 23:09 08/30/18 18:38 Tylenol PO 650 mg Q4H PRN Administration Pain MILD(1-3)/Fever >100.5/CHAVES Clonidine HCl 0.2 mg 08/26/18 08:00 09/07/18 15:39 Catapres PO Not Given TID TRUDI Diphenhydramine HCl 25 mg 08/27/18 18:06 09/06/18 23:00 Benadryl PO 25 mg Q6H PRN Administration Itching Heparin Sodium (Porcine) 5,000 unit 08/25/18 23:15 09/07/18 10:00 Heparin SUB-Q Not Given Q12HR TRUDI Heparin Sodium (Porcine) 0 unit 08/31/18 20:23 Heparin 10,000 Units/10 Ml IV ELANA PRN hemodialysis Protocol Hydralazine HCl 50 mg 08/26/18 06:00 09/07/18 15:39 Apresoline PO Not Given Q8HR TRUDI Hydralazine HCl 10 mg 09/06/18 08:12 Apresoline IV Q4HR PRN Hypertension Hydromorphone HCl 0.5 mg 09/05/18 14:00 09/07/18 12:56 Dilaudid IV 0.5 mg Q4H PRN Administration Pain , Severe (7-10) Hydrophilic Ointment 1 applic 09/07/18 15:40 Vaseline Lip Therapy TP DIRECT PRN Dry Lips Sodium Chloride 100 mls @ 999 mls/hr 08/26/18 16:39 Nacl 0.9% IV ELANA PRN Hypotension Sodium Chloride 1,000 mls @ 100 mls/hr 09/06/18 09:00 09/06/18 10:25 Nacl 0.9% 1000 Ml IV 100 mls/hr DIRECT TRUDI Administration Insulin Human Lispro 0 unit 08/26/18 07:30 09/07/18 11:30 Humalog SUB-Q Not Given ACHS [facility] Protocol Labetalol HCl 300 mg 08/26/18 08:00 09/07/18 15:39 Normodyne PO Not Given TID TRUDI Losartan Potassium 50 mg 09/06/18 10:00 09/06/18 09:00 Cozaar PO Not Given QDAY [facility] Ondansetron HCl 4 mg 08/26/18 06:00 09/07/18 05:47 Zofran Odt PO 4 mg Q8HR TRUDI Administration Ondansetron HCl 4 mg 08/31/18 16:24 09/06/18 08:29 Zofran IV 4 mg Q4H PRN Administration Nausea And Vomiting Oxycodone/Acetaminophen 1 tab 08/25/18 23:09 Percocet 5/325 PO Q6H PRN Pain, Moderate (4-6) Pantoprazole Sodium 40 mg 08/26/18 10:00 09/06/18 21:43 Protonix PO 40 mg BID TRUDI Administration Promethazine HCl 25 mg 08/25/18 23:15 Phenergan ND Q6HR PRN Vomiting Sodium Chloride 10 ml 08/25/18 23:45 09/07/18 09:02 Sodium Chloride Flush Syringe 10 Ml IV 10 ml BID TRUDI Administration Sodium Chloride 10 ml 08/25/18 23:09 09/03/18 05:36 Sodium Chloride Flush Syringe 10 Ml IV 10 ml PRN PRN Administration LINE FLUSH Spironolactone 25 mg 09/05/18 10:00 09/06/18 09:00 Aldactone PO Not Given QDAY TRUDI Tramadol HCl 50 mg 08/25/18 23:15 Ultram PO Q6H PRN Pain, Moderate (4-6)
[2018-09-07] MEDS: PROTONIX PO SCH ×2 (16:55→21:40)
[2018-09-07] MEDS: BENADRYL PO PRN (19:04)
[2018-09-07] MEDS: ALDACTONE PO SCH (19:49)
[2018-09-08] MEDS: DILAUDID IV PRN ×4 (00:40→12:02)
[2018-09-08] MEDS: ZOFRAN ODT PO SCH (05:57)
[2018-09-08] MEDS: APRESOLINE PO SCH (05:58)
[2018-09-08] MEDS: HumaLOG SUB-Q SCH ×2 (08:57→12:05)
[2018-09-08] MEDS: CATAPRES PO SCH (09:03)
[2018-09-08] MEDS: NORMODYNE PO SCH (09:04)
--- NOTE | 2018-09-08 09:44 | Progress Note ---
Assessment and Plan We will obtain vascular ultrasound of her new graft as well as evaluation of her old graft. Patient may undergo cannulation of her immediate access graft in her left upper arm at her next dialysis session. She can then follow up in our o ffice. Subjective Date of service: 09/08/18 Principal diagnosis: Clotted RUE Access Interval history: Patient with failed right upper extremity graft currently dialyzing through a left dominant femoral vein PermCath. She is status post creation of a left upper arm immediate access graft. Patient complains of minimal postsurgical pain. Objective - Constitutional Vitals: Vital Signs - 12hr 09/07/18 09/08/18 09/08/18 23:16 05:29 09:03 Temperature 98.3 F 98.7 F Pulse Rate 86 80 Respiratory 18 18 Rate Blood Pressure 114/71 142/73 142/73 O2 Sat by Pulse 100 100 Oximetry General appearance: Present: no acute distress - EENT ENT: hearing intact - Neck Neck: supple - Respiratory Respiratory effort: normal - Gastrointestinal General gastrointestinal: Present: deferred Rectal Exam: deferred - Genitourinary Female genitourinary: deferred - Psychiatric Psychiatric: appropriate mood/affect, cooperative - Labs CBC & Chem 7: 09/06/18 09:40 09/06/18 09:40 Labs: Abnormal lab results 09/07/18 09/07/18 09/08/18 Range/Units 18:36 21:43 07:39 POC Glucose 184 H 134 H 132 H (70-105) Medications & Allergies - Medications Allergies/Adverse Reactions: Allergies Fish Containing Products Allergy (Verified 07/10/18 17:56) Rash metformin Allergy (Verified 10/25/16 01:38) Hives metoclopramide HCl [From Reglan] Allergy (Verified 10/25/16 01:38) Hives prochlorperazine [From Compazine] Allergy (Verified 10/25/16 01:38) Hives prochlorperazine edisylate [From Compazine] Allergy (Verified 10/25/16 01:38) Hives prochlorperazine maleate [From Compazine] Allergy (Verified 10/25/16 01:38) Hives haloperidol [From Haldol] Adverse Reaction (Verified 09/06/18 10:05) Unknown PT STATES HER TEETH CHATTERED AND HER "EYES DRIFTED OFF" shellfish Allergy (Uncoded 07/30/18 12:26) Swelling Home Medications: Home Medications Medication Instructions Recorded Confirmed Last Taken Type traMADol [Ultram 50 MG tab] 50 mg PO Q6H PRN #20 tablet 07/30/18 08/27/18 08/23/18 Rx Apixaban [Eliquis] 2.5 mg PO Q12HR #60 tablet 08/04/18 08/27/18 08/23/18 Rx Aspirin [Aspirin BABY CHEW TAB] 81 mg PO QDAY #30 tab.chew 08/04/18 08/27/18 08/23/18 Rx AtorvaSTATin [Lipitor] 40 mg PO QHS #30 tablet 08/04/18 08/27/18 08/23/18 Rx Labetalol [Normodyne TAB] 300 mg PO TID #90 tablet 08/04/18 08/27/18 08/23/18 Rx Pantoprazole [Protonix TAB] 40 mg PO BID #60 tablet 08/04/18 08/27/18 08/23/18 Rx amLODIPine [Norvasc] 10 mg PO DAILY #30 tablet 08/04/18 08/27/18 08/23/18 Rx cloNIDine [Catapres] 0.2 mg PO TID #90 tablet 08/04/18 08/27/18 08/23/18 Rx hydrALAZINE [Apresoline TAB] 50 mg PO Q8HR #90 tablet 08/04/18 08/27/18 08/23/18 Rx Ondansetron [Zofran ODT TAB] 4 mg PO Q8HR #20 tab.rapdis 08/07/18 08/27/18 08/23/18 Rx HYDROcodone/APAP 5-325 [[place] 1 - 2 each PO Q6HR PRN #14 tablet 08/08/18 08/27/18 08/23/18 Rx 5-325 mg TAB] Promethazine [Phenergan SUPPOS] 25 mg [place] Q6HR PRN #10 supp.rect 08/08/18 08/27/18 08/23/18 Rx Promethazine [Phenergan SUPPOS] 25 mg [place] Q6HR PRN #30 supp.rect 08/23/18 08/27/18 08/23/18 Rx Active Medications: Generic Name Dose Route Start Last Admin Trade Name Freq PRN Reason Stop Dose Admin Acetaminophen 650 mg 08/25/18 23:09 08/30/18 18:38 Tylenol PO 650 mg Q4H PRN Administration Pain MILD(1-3)/Fever >100.5/CHAVES Clonidine HCl 0.2 mg 08/26/18 08:00 09/08/18 09:03 Catapres PO 0.2 mg TID TRUDI Administration Diphenhydramine HCl 25 mg 08/27/18 18:06 09/07/18 19:04 Benadryl PO 25 mg Q6H PRN Administration Itching Heparin Sodium (Porcine) 5,000 unit 08/25/18 23:15 09/07/18 21:39 Heparin SUB-Q 5,000 unit Q12HR TRUDI Administration Heparin Sodium (Porcine) 0 unit 08/31/18 20:23 Heparin 10,000 Units/10 Ml IV ELANA PRN hemodialysis Protocol Hydralazine HCl 50 mg 08/26/18 06:00 09/08/18 05:58 Apresoline PO 50 mg Q8HR TRUDI Administration Hydralazine HCl 10 mg 09/06/18 08:12 Apresoline IV Q4HR PRN Hypertension Hydromorphone HCl 0.5 mg 09/05/18 14:00 09/08/18 08:01 Dilaudid IV 0.5 mg Q4H PRN Administration Pain , Severe (7-10) Hydrophilic Ointment 1 applic 09/07/18 15:40 Vaseline Lip Therapy TP DIRECT PRN Dry Lips Sodium Chloride 100 mls @ 999 mls/hr 08/26/18 16:39 Nacl 0.9% IV ELANA PRN Hypotension Sodium Chloride 1,000 mls @ 100 mls/hr 09/06/18 09:00 09/06/18 10:25 Nacl 0.9% 1000 Ml IV 100 mls/hr DIRECT TRUDI Administration Insulin Human Lispro 0 unit 08/26/18 07:30 09/08/18 08:57 Humalog SUB-Q Not Given ACHS [facility] Protocol Labetalol HCl 300 mg 08/26/18 08:00 09/08/18 09:04 Normodyne PO 300 mg TID TRUDI Administration Losartan Potassium 50 mg 09/06/18 10:00 09/07/18 15:39 Cozaar PO Not Given QDAY TRUDI Ondansetron HCl 4 mg 08/26/18 06:00 09/08/18 05:57 Zofran Odt PO 4 mg Q8HR TRUDI Administration Ondansetron HCl 4 mg 08/31/18 16:24 09/06/18 08:29 Zofran IV 4 mg Q4H PRN Administration Nausea And Vomiting Oxycodone/Acetaminophen 1 tab 08/25/18 23:09 Percocet 5/325 PO Q6H PRN Pain, Moderate (4-6) Pantoprazole Sodium 40 mg 08/26/18 10:00 09/07/18 21:40 Protonix PO 40 mg BID TRUDI Administration Promethazine HCl 25 mg 08/25/18 23:15 Phenergan MI Q6HR PRN Vomiting Sodium Chloride 10 ml 08/25/18 23:45 09/07/18 21:46 Sodium Chloride Flush Syringe 10 Ml IV 10 ml BID TRUDI Administration Sodium Chloride 10 ml 08/25/18 23:09 09/03/18 05:36 Sodium Chloride Flush Syringe 10 Ml IV 10 ml PRN PRN Administration LINE FLUSH Spironolactone 25 mg 09/05/18 10:00 09/07/18 19:49 Aldactone PO Not Given QDAY TRUDI Tramadol HCl 50 mg 08/25/18 23:15 Ultram PO Q6H PRN Pain, Moderate (4-6)
--- NOTE | 2018-09-08 10:58 | Discharge Summary ---
Providers - Providers Date of Admission: 08/25/18 23:09 Date of discharge: 09/08/18 Attending physician: KYLER LAMA MD 08/25/18 16:32 Consult to Physician [CONS] Urgent Comment: Consulting Provider: CALLY ORNELAS Physician Instructions: Reason For Exam: clotted HD access 08/25/18 16:38 Consult to Physician [CONS] Urgent Comment: Consulting Provider: JOSEPH RUTH Physician Instructions: Reason For Exam: esrd 08/26/18 18:07 Consult to Wound/ET Nurse [CONS] Routine Reason For Exam: wound eval 08/28/18 13:57 Physical Therapy Evaluation and Treat [CONS] Routine Comment: Reason For Exam: generalized weakness 09/01/18 12:42 Consult to Physician [CONS] Routine Comment: Consulting Provider: CALLY ORNELAS Physician Instructions: Reason For Exam: PERMACATH Primary care physician: ITINERANT TEACHER ASSISTANT Hospitalization Condition: Good Procedures: femoral perm cath AVG Hospital course: 37-year-old female with history of end-stage renal disease on dialysis, type 2 diabetes, gastroparesis,bilateral eye catarat, gastric pacemaker hypertension and 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 No shortness of breath. Patient complains of chronic body pains. She was sent from the dialysis clinic for evaluation of blood pressure also. No fever or chills. she had a right upper extremity AV access placed one year ago and it is a forearm loop graft placed a year ago Patient unfortunately has had multiple attempts to greater than accessible times have failed. Patient does have a Vas-Cath on the groin. Further to a permacath. Vascular surgery was consulted and the AVG was unsalvagable and they put permcath in the femoral are, created a new AVG and discharged home. Vascular surgery will see the patient in the clinic for removal of the permcath once the AVG became functional. 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 The patient is obese. Vital signs as documented. Head exam is unremarkable. No scleral icterus . Neck is without jugular venous distension, thyromegaly, or carotid bruits. Lungs are clear to auscultation. Cardiac exam reveals regular rate and Rhythm. First and second heart sounds normal. No murmurs, rubs or gallops. Abdominal exam reveals normal bowel sounds, no masses, no organomegaly and no aortic enlargement. Extremities are nonedematous and both femoral and pedal pulses are normal. CLINICAL DIETETIC TECHNICIAN: Alert and oriented 3. No focal weakness. - Constitutional Vitals: Temp Pulse Resp BP Pulse Ox 98.7 F 80 18 142/73 100 09/08/18 05:29 09/08/18 05:29 09/08/18 05:29 09/08/18 09:03 09/08/18 05:29 Plan Activity: no restrictions Weight Bearing Status: Full Weight Bearing Diet: low salt, renal Follow up with: ERLINDA HERNANDEZ MD [Staff Physician] - 7 Days PRIMARY CAREMD [Primary Care Provider] - 3-5 Days CALLY GRIDER MD [Staff Physician] - 14 Days Prescriptions: HYDROcodone/APAP 5-325 [[place] 5-325 mg TAB] 1 - 2 each PO Q6HR PRN 12 Days #14 tablet PRN Reason: Pain traMADol [Ultram 50 MG tab] 50 mg PO Q6H PRN #20 tablet PRN Reason: Pain, Moderate (4-6)
[2018-09-08] MEDS: COZAAR PO SCH (11:00)
[2018-09-08] MEDS: ALDACTONE PO SCH (11:01)
[2018-09-08] MEDS: HEPARIN SUB-Q SCH (11:01)
[2018-09-08] MEDS: SODIUM CHLORIDE FLUSH SYRINGE 10 ML IV SCH (11:02)
[2018-09-08] MEDS: PROTONIX PO SCH (11:02)
[2018-09-08 12:00] VITALS: BP 143/80
[2018-09-08] MEDS ORDERED: FLUSH HEPARIN IV ONE (14:00)
[2018-09-08] MEDS ORDERED: TRIPLE ANTIBIOTIC TP ONE (14:00)
== END 2018-09-08 14:59 | disposition home health service (06) | DRG 252 ==
LOC: ED 12:53 → 3A 23:09
PROVIDERS: ADMIT Internal Medicine; ATTEND Internal Medicine
PROC: 057Y3ZZ Dilation of Upper Vein, Percutaneous Approach (ICD-10-PCS; principal; 2018-08-27)
PROC: 03C73ZZ Extirpation of Matter from Right Brachial Artery, Percutaneous Approach (ICD-10-PCS; 2018-08-27)
PROC: 06H033Z Insertion of Infusion Device into Inferior Vena Cava, Percutaneous Approach (ICD-10-PCS; 2018-08-27)
PROC: B5191ZA Fluoroscopy of Inferior Vena Cava using Low Osmolar Contrast, Guidance (ICD-10-PCS; 2018-08-27)
PROC: B51W1ZZ Fluoroscopy of Dialysis Shunt/Fistula using Low Osmolar Contrast (ICD-10-PCS; 2018-08-27)
PROC: 05JY3ZZ Inspection of Upper Vein, Percutaneous Approach (ICD-10-PCS; 2018-08-27)
PROC: 5A1D70Z Performance of Urinary Filtration, Intermittent, Less than 6 Hours Per Day (ICD-10-PCS; 2018-08-27)
PROC: 5A1D70Z Performance of Urinary Filtration, Intermittent, Less than 6 Hours Per Day (ICD-10-PCS; 2018-08-29)
PROC: 03C70ZZ Extirpation of Matter from Right Brachial Artery, Open Approach (ICD-10-PCS; 2018-08-31)
PROC: 5A1D70Z Performance of Urinary Filtration, Intermittent, Less than 6 Hours Per Day (ICD-10-PCS; 2018-08-31)
PROC: 5A1D70Z Performance of Urinary Filtration, Intermittent, Less than 6 Hours Per Day (ICD-10-PCS; 2018-08-31)
PROC: 30233N1 Transfusion of Nonautologous Red Blood Cells into Peripheral Vein, Percutaneous Approach (ICD-10-PCS; 2018-08-31)
PROC: 03WY0JZ Revision of Synthetic Substitute in Upper Artery, Open Approach (ICD-10-PCS; 2018-08-31)
PROC: 5A1D70Z Performance of Urinary Filtration, Intermittent, Less than 6 Hours Per Day (ICD-10-PCS; 2018-09-03)
PROC: 05C73ZZ Extirpation of Matter from Right Axillary Vein, Percutaneous Approach (ICD-10-PCS; 2018-09-03)
PROC: 05773ZZ Dilation of Right Axillary Vein, Percutaneous Approach (ICD-10-PCS; 2018-09-03)
PROC: 0JH60WZ Insertion of Totally Implantable Vascular Access Device into Chest Subcutaneous Tissue and Fascia, Open Approach (ICD-10-PCS; 2018-09-03)
PROC: 06PYX3Z Removal of Infusion Device from Lower Vein, External Approach (ICD-10-PCS; 2018-09-03)
PROC: 06H033Z Insertion of Infusion Device into Inferior Vena Cava, Percutaneous Approach (ICD-10-PCS; 2018-09-03)
PROC: B5191ZA Fluoroscopy of Inferior Vena Cava using Low Osmolar Contrast, Guidance (ICD-10-PCS; 2018-09-03)
PROC: 5A1D70Z Performance of Urinary Filtration, Intermittent, Less than 6 Hours Per Day (ICD-10-PCS; 2018-09-05)
PROC: 03180JD Bypass Left Brachial Artery to Upper Arm Vein with Synthetic Substitute, Open Approach (ICD-10-PCS; 2018-09-06)
PROC: 5A1D70Z Performance of Urinary Filtration, Intermittent, Less than 6 Hours Per Day (ICD-10-PCS; 2018-09-07)
DX: T82.868A Thrombosis due to vascular prosthetic devices, implants and grafts, initial encounter (principal); N18.6 End stage renal disease; I16.1 Hypertensive emergency; T82.590A Other mechanical complication of surgically created arteriovenous fistula, initial encounter; D68.8 Other specified coagulation defects; I69.354 Hemiplegia and hemiparesis following cerebral infarction affecting left non-dominant side; N25.81 Secondary hyperparathyroidism of renal origin; I82.C12 Acute embolism and thrombosis of left internal jugular vein; I12.0 Hypertensive chronic kidney disease with stage 5 chronic kidney disease or end stage renal disease; T82.858A Stenosis of other vascular prosthetic devices, implants and grafts, initial encounter; E11.22 Type 2 diabetes mellitus with diabetic chronic kidney disease; E11.43 Type 2 diabetes mellitus with diabetic autonomic (poly)neuropathy; K31.84 Gastroparesis; Y83.8 Other surgical procedures as the cause of abnormal reaction of the patient, or of later complication, without mention of misadventure at the time of the procedure; Y92.89 Other specified places as the place of occurrence of the external cause; E78.2 Mixed hyperlipidemia; D63.1 Anemia in chronic kidney disease; E87.6 Hypokalemia; G89.29 Other chronic pain; H54.8 Legal blindness, as defined in USA; Z88.8 Allergy status to other drugs, medicaments and biological substances; Z91.013 Allergy to seafood; Z90.49 Acquired absence of other specified parts of digestive tract; Z98.41 Cataract extraction status, right eye; Z79.82 Long term (current) use of aspirin; Z98.42 Cataract extraction status, left eye
CPT/HCPCS: 36415; 36430; 36556; 36558; 36905; 71045; 76937; 77001; 80048; 80053; 80074; 82607; 82728; 82747; 82962; 83036; 83550; 83735; 83970; 84100; 85014; 85018; 85025; 85027; 85610; 85730; 86850; 86900; 86901; 86920; 93930; G0378; A6250; C1725; C1750; C1751; C1752; C1757; C1768; C1769; C1894; J0330; J0360; J0690; J0885; J1100; J1170; J1200; J1642; J1644; J1815; J2060; J2250; J2370; J2405; J2704; J2710; J3010; J3490; J7030; J7040; J7050; P9016; Q0162; Q9967

== ENCOUNTER 2018-09-17 12:57 | Inpatient (IN) | payer MEDICAID, MEDICARE, OTHER ==
--- NOTE | 2018-09-17 14:07 | Emergency Department Report ---
ED General Adult HPI - General Chief complaint: Medical Clearance Stated complaint: GENERAL SICKNESS Time Seen by Provider: 09/17/18 13:55 Source: patient Mode of arrival: Wheelchair Limitations: No Limitations - History of Present Illness Initial comments: Patient is 37 years old female with history of end-stage renal disease on hemodialysis, hypertension, diabetes and left sided CVA with paralysis. Patient presented to the ER stating that her dialysis access is not working. Patient stated that she had a left arm AV graft and now it does not have any thrill. Patient also had a left femoral permacath that is not be functioning well. Patient stated that she went to dialysis on and it was very slow. Patient missed dialysis on Monday. Patient stated that her bilingual sales assistant is Dr. Oliveira. Patient denying any shortness of breath, chest pain, fevers chills or abdominal pain. - Related Data Previous Rx's Medication Instructions Recorded Last Taken Type Apixaban [Eliquis] 2.5 mg PO Q12HR #60 tablet 08/04/18 08/23/18 Rx Aspirin [Aspirin BABY CHEW TAB] 81 mg PO QDAY #30 tab.chew 08/04/18 08/23/18 Rx AtorvaSTATin [Lipitor] 40 mg PO QHS #30 tablet 08/04/18 08/23/18 Rx Labetalol [Normodyne TAB] 300 mg PO TID #90 tablet 08/04/18 08/23/18 Rx Pantoprazole [Protonix TAB] 40 mg PO BID #60 tablet 08/04/18 08/23/18 Rx amLODIPine [Norvasc] 10 mg PO DAILY #30 tablet 08/04/18 08/23/18 Rx cloNIDine [Catapres] 0.2 mg PO TID #90 tablet 08/04/18 08/23/18 Rx hydrALAZINE [Apresoline TAB] 50 mg PO Q8HR #90 tablet 08/04/18 08/23/18 Rx Ondansetron [Zofran ODT TAB] 4 mg PO Q8HR #20 tab.rapdis 08/07/18 08/23/18 Rx Promethazine [Phenergan SUPPOS] 25 mg [place] Q6HR PRN #10 supp.rect 08/08/18 08/23/18 Rx Promethazine [Phenergan SUPPOS] 25 mg WI Q6HR PRN #30 supp.rect 08/23/1811/06 Rx HYDROcodone/APAP 5-325 [[place] 1 - 2 each PO Q6HR PRN 12 Days #14 09/08/18 Unknown Rx 5-325 mg TAB] tablet traMADol [Ultram 50 MG tab] 50 mg PO Q6H PRN #20 tablet 09/08/18 Unknown Rx Allergies Allergy/AdvReac Type Severity Reaction Status Date / Time Fish Containing Products Allergy Rash Verified 07/10/18 17:56 metformin Allergy Hives Verified 10/25/16 01:38 metoclopramide HCl Allergy Hives Verified 10/25/16 01:38 [From Reglan] prochlorperazine Allergy Hives Verified 10/25/16 01:38 [From Compazine] prochlorperazine edisylate Allergy Hives Verified 10/25/16 01:38 [From Compazine] prochlorperazine maleate Allergy Hives Verified 10/25/16 01:38 [From Compazine] haloperidol [From Haldol] AdvReac Unknown Verified 09/06/18 10:05 shellfish Allergy Swelling Uncoded 07/30/18 12:26 ED Review of Systems ROS: Stated complaint: GENERAL SICKNESS Other details as noted in HPI Comment: All other systems reviewed and negative Constitutional: denies: chills, fever Respiratory: denies: cough, orthopnea, shortness of breath, SOB with exertion Cardiovascular: denies: chest pain, palpitations Gastrointestinal: denies: abdominal pain, nausea, vomiting, diarrhea, constipation, hematemesis, hematochezia Neurological: denies: headache, weakness, numbness, paresthesias, confusion ED Past Medical Hx - Past Medical History Hx Hypertension: Yes Hx CVA: Yes (multiple- L sided deficits, 12 CVA) Hx Congestive Heart Failure: No Hx Diabetes: Yes Hx Renal Disease: Yes (ESRD, HD ) Hx Sickle Cell Disease: No Hx Asthma: No Hx COPD: No Hx Dementia: No Hx HIV: No Additional medical history: anemia - Surgical History Hx Pacemaker: Yes (gastric pacemaker ) Hx Cholecystectomy: Yes Additional Surgical History: catheter placement for Hemo),bilayeral eye sugery(cataract), av fistula, gastric pacemaker for gastroparesis - Social History Smoking Status: Never Smoker Substance Use Type: None - Medications Home Medications: Home Medications Medication Instructions Recorded Confirmed Last Taken Type Apixaban [Eliquis] 2.5 mg PO Q12HR #60 tablet 08/04/18 08/27/18 08/23/18 Rx Aspirin [Aspirin BABY CHEW TAB] 81 mg PO QDAY #30 tab.chew 08/04/18 08/27/18 08/23/18 Rx AtorvaSTATin [Lipitor] 40 mg PO QHS #30 tablet 08/04/18 08/27/18 08/23/18 Rx Labetalol [Normodyne TAB] 300 mg PO TID #90 tablet 08/04/18 08/27/18 08/23/18 Rx Pantoprazole [Protonix TAB] 40 mg PO BID #60 tablet 08/04/18 08/27/18 08/23/18 Rx amLODIPine [Norvasc] 10 mg PO DAILY #30 tablet 08/04/18 08/27/18 08/23/18 Rx cloNIDine [Catapres] 0.2 mg PO TID #90 tablet 08/04/18 08/27/18 08/23/18 Rx hydrALAZINE [Apresoline TAB] 50 mg PO Q8HR #90 tablet 08/04/18 08/27/18 08/23/18 Rx Ondansetron [Zofran ODT TAB] 4 mg PO Q8HR #20 tab.rapdis 08/07/18 08/27/18 08/23/18 Rx Promethazine [Phenergan SUPPOS] 25 mg [place] Q6HR PRN #10 supp.rect 08/08/18 08/27/18 08/23/18 Rx Promethazine [Phenergan SUPPOS] 25 mg WI Q6HR PRN #30 supp.rect 08/23/18 08/27/18 08/23/18 Rx HYDROcodone/APAP 5-325 [[place] 1 - 2 each PO Q6HR PRN 12 Days #14 09/08/18 Unknown Rx 5-325 mg TAB] tablet traMADol [Ultram 50 MG tab] 50 mg PO Q6H PRN #20 tablet 09/08/18 Unknown Rx ED Physical Exam - General Limitations: No Limitations General appearance: alert, in no apparent distress - Head Head exam: Present: atraumatic, normocephalic, normal inspection - Eye Eye exam: Present: normal appearance, PERRL - ENT ENT exam: Present: normal exam, normal orophraynx, mucous membranes moist - Neck Neck exam: Present: normal inspection, full ROM. Absent: tenderness, meningismus, lymphadenopathy, thyromegaly - Respiratory Respiratory exam: Present: normal lung sounds bilaterally. Absent: respiratory distress, wheezes, rales, rhonchi, accessory muscle use, decreased breath sounds, prolonged expiratory - Cardiovascular Cardiovascular Exam: Present: regular rate, normal rhythm, normal heart sounds - GI/Abdominal GI/Abdominal exam: Present: soft, normal bowel sounds. Absent: distended, tenderness, guarding, rebound, rigid, mass, bruit, pulsatile mass, hernia - Extremities Exam Extremities exam: Present: other (left arm graft with no palpable thrill) - Back Exam Back exam: Present: normal inspection, full ROM - Neurological Exam Neurological exam: Present: alert, oriented X3, CN II-XII intact, reflexes normal - Skin Skin exam: Present: warm, intact, normal color ED Course Vital Signs 09/17/18 13:06 Temperature 98.4 F Pulse Rate 85 Respiratory 16 Rate Blood Pressure 135/69 O2 Sat by Pulse 99 Oximetry ED Medical Decision Making - Lab Data Result diagrams: 09/17/18 14:29 09/17/18 14:29 - Radiology Data Radiology results: report reviewed Referring Physician: MARGARETTE HOANG Patient Name: MOSES MONTGOMERY Date of : 1980 Sex: Female Report Date: 2018-09-17 Report Status: Finalized Findings [facility] [address] [place] [address] XRay Report Signed Patient: MOSES MONTGOMERY MR#: [id number] : 1980 Acct:[id number] Age/Sex: 37 / F ADM Date: 09/17/18 Loc: ED Attending Dr: Ordering Physician: MARGARETTE HOANG Date of Service: 09/17/18 Procedure(s): XR chest 1V ap Accession Number(s): [id number] cc: MARGARETTE HOANG Fluoro Time In Minutes: PORTABLE CHEST INDICATION: Shortness of breath. COMPARISON: 08/25/2018 FINDINGS: Portable, frontal chest radiograph again demonstrates exaggerated cardiomediastinal silhouette/mild cardiomegaly with mildly limited inspiration. Minimal congestive haziness may have improved with now grossly clear lungs. No pleural effusions or CHF. Right chest Port-A-Cath again noted with its tip about the cavoatrial junction. A new IVC catheter/tubing questioned overlying the spine with its tip possibly terminating in the right atrium. Intact bones. CONCLUSION: No acute chest process with few other findings, as above. Please correlate. Thank you for the opportunity to participate in this patient's care. Transcribed By: RS Dictated By: SIENNA BAPTISTE MD Electronically Authenticated By: SIENNA BAPTISTE MD Signed Date/Time: 09/17/181420 DD/ 17 TD/TT: 09/17/181420 - Medical Decision Making Patient is 37 years old female with history of end-stage renal disease on hemodialysis, hypertension, diabetes and left sided CVA with paralysis. Patient presented to the ER stating that her dialysis access is not working. Patient stated that she had a left arm AV graft and now it does not have any thrill. Patient also had a left femoral permacath that is not be functioning well. Patient stated that she went to dialysis on and it was very slow. Patient missed dialysis on Monday. Patient stated that her bilingual sales assistant is Dr. Oliveira. Patient denying any shortness of breath, chest pain, fevers chills or abdominal pain. I discussed the patient was Dr. Ziegler from vascular. Dr. Ziegler advised to keep patient nothing by mouth after midnight for replacement of her left femoral permacath in the morning. I discussed the patient with Dr. Turk, he agreed to admit the patient to medical service. Critical care attestation.: If time is entered above; I have spent that time in minutes in the direct care of this critically ill patient, excluding procedure time. ED Disposition Clinical Impression: End stage renal disease on dialysis, Missed dialysis, Clotted dialysis access Disposition: OP ADMIT IP TO THIS HOSP Is pt being admited?: Yes Condition: Stable Referrals: GUTIERREZ CORBETT MD [Primary Care Provider] - 3-5 Days
--- NOTE | 2018-09-17 14:25 | XRay Report ---
PORTABLE CHEST INDICATION: Shortness of breath. COMPARISON: 08/25/2018 FINDINGS: Portable, frontal chest radiograph again demonstrates exaggerated cardiomediastinal silhouette/mild cardiomegaly with mildly limited inspiration. Minimal congestive haziness may have improved with now grossly clear lungs. No pleural effusions or CHF. Right chest Port-A-Cath again noted with its tip about the cavoatrial junction. A new IVC catheter/tubing questioned overlying the spine with its tip possibly terminating in the right atrium. Intact bones. CONCLUSION: No acute chest process with few other findings, as above. Please correlate. Thank you for the opportunity to participate in this patient's care.
[2018-09-17] MEDS ORDERED: MORPHINE ONE (14:51)
[2018-09-17 15:02] LABS: Basophils % (Auto) 0.5 % (0.0-1.8); Eosinophils # (Auto) 0.2 K/mm3 (0.0-0.4); Eosinophils % (Auto) 2.7 % (0.0-4.3); Hematocrit 24.1 % (30.3-42.9); Hemoglobin 7.8 gm/dl (10.1-14.3); INR 0.93 (0.87-1.13); Lymphocytes # (Auto) 2.1 K/mm3 (1.2-5.4); Lymphocytes % (Auto) 23.7 % (13.4-35.0); Mean Corpuscular HGB Conc 33 % (30-34); Mean Corpuscular Volume 93 fl (79-97); Monocytes # (Auto) 0.8 K/mm3 (0.0-0.8); Monocytes % (Auto) 9.1 % (0.0-7.3); Partial Thromboplastin Time 31.5 Sec. (24.2-36.6); Platelet Count 505 K/mm3 (140-440); Red Blood Count 2.59 M/mm3 (3.65-5.03); Red Cell Distribution Width 15.7 % (13.2-15.2)
[2018-09-17] MEDS ORDERED: ZOFRAN ONE (15:13)
[2018-09-17 15:18] LABS: Calcium 8.3 mg/dL (8.4-10.2)
[2018-09-17] MEDS ORDERED: ZOFRAN IV ONE ×2 (16:43→17:02)
[2018-09-17] MEDS ORDERED: MORPHINE IV ONE ×2 (16:43→17:11)
[2018-09-17] MEDS ORDERED: REGLAN ONE (16:53)
--- NOTE | 2018-09-17 17:35 | History and Physical Report ---
History of Present Illness Chief complaint: I need dialysis History of present illness: 37 YO Female with ESRD on HD (T,R,Sa), HTN, HLD, CVA with LHP, DM, MO, Anemia presents to ED for evaluation. Pt states that her dialysis access is not working. Pt states that she was last dialyzed on , but it was incomplete due to her malfunctioning dialysis access. Pt seen and evaluated in ED and found to have ESRD. Pt admitted to medical floor. Nephrology consulted in ED for dialysis. Vascular surgery consulted in ED. Pt denies fever, chills, CP, palpitations, Trauma, BRBPR, unintentional weight loss, or night sweats. Past History Past Medical History: anemia, diabetes, ESRD, hypertension, hyperlipidemia, stroke Past Surgical History: cataract removal, Other (AV fistula Placement) Social history: , lives with family. denies: smoking, alcohol abuse, prescription drug abuse Medications and Allergies Allergies Allergy/AdvReac Type Severity Reaction Status Date / Time Fish Containing Products Allergy Rash Verified 07/10/18 17:56 metformin Allergy Hives Verified 10/25/16 01:38 metoclopramide HCl Allergy Hives Verified 10/25/16 01:38 [From Reglan] prochlorperazine Allergy Hives Verified 10/25/16 01:38 [From Compazine] prochlorperazine edisylate Allergy Hives Verified 10/25/16 01:38 [From Compazine] prochlorperazine maleate Allergy Hives Verified 10/25/16 01:38 [From Compazine] haloperidol [From Haldol] AdvReac Unknown Verified 09/06/18 10:05 shellfish Allergy Swelling Uncoded 07/30/18 12:26 Home Medications Medication Instructions Recorded Confirmed Last Taken Type Apixaban [Eliquis] 2.5 mg PO Q12HR #60 tablet 08/04/18 08/27/18 08/23/18 Rx Aspirin [Aspirin BABY CHEW TAB] 81 mg PO QDAY #30 tab.chew 08/04/18 08/27/18 08/23/18 Rx AtorvaSTATin [Lipitor] 40 mg PO QHS #30 tablet 08/04/18 08/27/18 08/23/18 Rx Labetalol [Normodyne TAB] 300 mg PO TID #90 tablet 08/04/18 08/27/18 08/23/18 Rx Pantoprazole [Protonix TAB] 40 mg PO BID #60 tablet 08/04/18 08/27/18 08/23/18 Rx amLODIPine [Norvasc] 10 mg PO DAILY #30 tablet 08/04/18 08/27/18 08/23/18 Rx cloNIDine [Catapres] 0.2 mg PO TID #90 tablet 08/04/18 08/27/18 08/23/18 Rx hydrALAZINE [Apresoline TAB] 50 mg PO Q8HR #90 tablet 08/04/18 08/27/18 08/23/18 Rx Ondansetron [Zofran ODT TAB] 4 mg PO Q8HR #20 tab.rapdis 08/07/18 08/27/18 08/23/18 Rx Promethazine [Phenergan SUPPOS] 25 mg [place] Q6HR PRN #10 supp.rect 08/08/18 08/27/18 08/23/18 Rx Promethazine [Phenergan SUPPOS] 25 mg [place] Q6HR PRN #30 supp.rect 08/23/18 08/27/18 08/23/18 Rx HYDROcodone/APAP 5-325 [[place] 1 - 2 each PO Q6HR PRN 12 Days #14 09/08/18 Unknown Rx 5-325 mg TAB] tablet traMADol [Ultram 50 MG tab] 50 mg PO Q6H PRN #20 tablet 09/08/18 Unknown Rx Exam - Constitutional Vitals: Temp Pulse Resp BP Pulse Ox 98.4 F 85 16 135/69 99 09/17/18 13:06 09/17/18 13:06 09/17/18 13:06 09/17/18 13:06 09/17/18 13:06 General appearance: Present: mild distress - EENT Eyes: Present: PERRL ENT: hearing intact, clear oral mucosa - Neck Neck: Present: supple, normal ROM - Respiratory Respiratory effort: normal Respiratory: bilateral: CTA - Cardiovascular Heart Sounds: Present: S1 & S2. Absent: rub, click - Extremities Extremities: pulses symmetrical, No edema Peripheral Pulses: within normal limits - Abdominal General gastrointestinal: Present: soft, non-tender, non-distended, normal bowel sounds Female genitourinary: Present: normal - Integumentary Integumentary: Present: clear, warm, dry - Musculoskeletal Musculoskeletal: left sided weakness - Psychiatric Psychiatric: appropriate mood/affect, intact judgment & insight - Neurologic Neurologic: no CNII-XII intact, focal deficits, moves all extremities, no gait n ormal Results - Labs CBC & Chem 7: 09/17/18 14:29 09/17/18 14:29 Labs: Abnormal lab results 09/17/18 09/17/18 Range/Units 14:29 14:29 RBC 2.59 L (3.65-5.03) M/mm3 Hgb 7.8 L (10.1-14.3) gm/dl Hct 24.1 L (30.3-42.9) % RDW 15.7 H (13.2-15.2) % Plt Count 505 H (140-440) K/mm3 Cross % (Auto) 9.1 H (0.0-7.3) % Potassium 3.4 L (3.6-5.0) mmol/L Chloride 94.9 L (98-107) mmol/L BUN 56 H (7-17) mg/dL Creatinine 7.9 H (0.7-1.2) mg/dL Glucose 131 H (65-100) mg/dL Calcium 8.3 L (8.4-10.2) mg/dL Assessment and Plan - Patient Problems (1) End stage renal disease on dialysis Current Visit: Yes Status: Chronic Plan to address problem: Nephrology consulted in ED, BMP, strict I/O, monitor uop q shift, avoid nephrotoxic agents. dialysis as per renal team (2) Clotted dialysis access Current Visit: Yes Status: Acute Qualifiers: Encounter type: initial encounter Qualified Code(s): T82.49XA - Other complication of vascular dialysis catheter, initial encounter Plan to address problem: Vascular surgery service consulted (3) Essential hypertension Current Visit: No Status: Acute Plan to address problem: monitor bpq shift, continue medical management (4) HLD (hyperlipidemia) Current Visit: No Status: Acute Qualifiers: Hyperlipidemia type: mixed hyperlipidemia Qualified Code(s): E78.2 - Mixed hyperlipidemia Plan to address problem: statin thearpy (5) DVT prophylaxis Current Visit: Yes Status: Acute Plan to address problem: SCD to BLE while in bed
[2018-09-17] MEDS ORDERED: TYLENOL ONE (20:14)
[2018-09-17] MEDS ORDERED: TYLENOL PO ONE (20:15)
[2018-09-17] MEDS ORDERED: SODIUM CHLORIDE FLUSH SYRINGE 10 ML IV PRN (20:16)
[2018-09-17] MEDS ORDERED: TYLENOL PO PRN (20:16)
[2018-09-17] MEDS ORDERED: ZOFRAN IV PRN (20:16)
[2018-09-17] MEDS ORDERED: PROVENTIL IH PRN (20:16)
[2018-09-17] MEDS ORDERED: PHENERGAN PR PRN (20:18)
[2018-09-17] MEDS ORDERED: ULTRAM PO PRN (20:18)
[2018-09-17] MEDS ORDERED: NORCO 5/325 PO PRN (20:18)
[2018-09-17] MEDS: MORPHINE IV PRN (23:46)
[2018-09-17] MEDS: ZOFRAN IV PRN (23:47)
[2018-09-18] MEDS: APRESOLINE PO SCH ×4 (00:20→23:00)
[2018-09-18] MEDS: ELIQUIS PO SCH ×3 (00:21→23:00)
[2018-09-18] MEDS: ZOFRAN ODT PO SCH ×4 (00:22→21:56)
[2018-09-18] MEDS: PROTONIX PO SCH ×3 (00:22→23:00)
[2018-09-18] MEDS: ZOFRAN IV PRN ×4 (04:56→19:18)
[2018-09-18] MEDS: SODIUM CHLORIDE FLUSH SYRINGE 10 ML IV SCH ×3 (04:57→23:00)
[2018-09-18] MEDS: MORPHINE IV PRN ×4 (04:57→19:19)
[2018-09-18] MEDS ORDERED: APRESOLINE IV PRN (05:01)
[2018-09-18] MEDS: NORMODYNE PO SCH ×4 (08:31→23:00)
[2018-09-18] MEDS: CATAPRES PO SCH ×4 (08:32→23:00)
--- NOTE | 2018-09-18 10:01 | Progress Note ---
Assessment and Plan Assessment and plan: Malfunction AV graft. patient admitted Vasc surgery consulted ESRD on hemodialysis Missed dialysis because left femoral permcath malfunction and left upper ext av graft malfunction Nephrology consulted Hypertension. Monitor BP hyperlipidemia Full code status History Interval history: Dialysis catheter not working Hospitalist Physical - Physical exam Narrative exam: GEN: Not in acute distress, lying in bed HEENT: Normocephalic, atraumatic, Neck: supple, No JVD Lungs: Clear to auscultation bilaterally, no wheeze Heart:S1 and S2 regular, no murmurs, rubs or gallop, Abd:soft, non tender, non distended, normal bowel sounds Ext: No edema, no clubbing or cyanosis Neuro: Awake,alert, Legally blind - Constitutional Vitals: Temp Pulse Resp BP Pulse Ox 97.6 F 88 18 168/85 96 09/18/18 04:52 09/18/18 04:52 09/18/18 04:57 09/18/18 04:52 09/18/18 08:44 General appearance: Present: mild distress Results - Labs CBC & Chem 7: 09/17/18 14:29 09/17/18 14:29 Labs: Laboratory Last Values WBC 9.0 K/mm3 (4.5-11.0) 09/17/18 14:29 RBC 2.59 M/mm3 (3.65-5.03) L 09/17/18 14:29 Hgb 7.8 gm/dl (10.1-14.3) L 09/17/18 14:29 Hct 24.1 % (30.3-42.9) L 09/17/18 14:29 MCV 93 fl (79-97) 09/17/18 14:29 MCH 30 pg (28-32) 09/17/18 14:29 MCHC 33 % (30-34) 09/17/18 14:29 RDW 15.7 % (13.2-15.2) H 09/17/18 14:29 Plt Count 505 K/mm3 (140-440) H 09/17/18 14:29 Lymph % (Auto) 23.7 % (13.4-35.0) 09/17/18 14:29 [place] % (Auto) 9.1 % (0.0-7.3) H 09/17/18 14:29 Eos % (Auto) 2.7 % (0.0-4.3) 09/17/18 14:29 Baso % (Auto) 0.5 % (0.0-1.8) 09/17/18 14:29 Lymph # 2.1 K/mm3 (1.2-5.4) 09/17/18 14:29 [place] # 0.8 K/mm3 (0.0-0.8) 09/17/18 14:29 Eos # 0.2 K/mm3 (0.0-0.4) 09/17/18 14:29 Baso # 0.0 K/mm3 (0.0-0.1) 09/17/18 14:29 Seg Neutrophils % 64.0 % (40.0-70.0) 09/17/18 14:29 Seg Neutrophils # 5.8 K/mm3 (1.8-7.7) 09/17/18 14:29 PT 12.9 Sec. (12.2-14.9) 09/17/18 14:29 INR 0.93 (0.87-1.13) 09/17/18 14:29 APTT 31.5 Sec. (24.2-36.6) 09/17/18 14:29 Sodium 141 mmol/L (137-145) 09/17/18 14:29 Potassium 3.4 mmol/L (3.6-5.0) L 09/17/18 14:29 Chloride 94.9 mmol/L (98-107) L 09/17/18 14:29 Carbon Dioxide 24 mmol/L (22-30) 09/17/18 14:29 Anion Gap 26 mmol/L 09/17/18 14:29 BUN 56 mg/dL (7-17) H 09/17/18 14:29 Creatinine 7.9 mg/dL (0.7-1.2) H 09/17/18 14:29 Estimated GFR 7 ml/min 09/17/18 14:29 BUN/Creatinine Ratio 7 % 09/17/18 14:29 Glucose 131 mg/dL (65-100) H 09/17/18 14:29 POC Glucose 115 (70-105) H 09/18/18 07:44 Calcium 8.3 mg/dL (8.4-10.2) L 09/17/18 14:29
[2018-09-18] MEDS ORDERED: HEPARIN 10,000 UNITS/10 ML ONE (12:09)
[2018-09-18] MEDS ORDERED: HEPARIN/NS 5000 UNIT/500ML(CATH LAB) 500 ML IR ONE (12:09)
[2018-09-18] MEDS ORDERED: VERSED ONE (12:10)
[2018-09-18] MEDS ORDERED: SUBLIMAZE ONE (12:10)
[2018-09-18] MEDS ORDERED: ANCEF/STERILE WATER 2 GM/20 ML 2 GM/20 ML SYRINGE IV ONE (12:12)
[2018-09-18] MEDS ORDERED: NACL 0.9% 500 ML 500 ML ONE (12:12)
[2018-09-18] MEDS ORDERED: ZOFRAN ONE (12:19)
[2018-09-18] MEDS: NORVASC PO SCH (12:29)
[2018-09-18] MEDS: BABY ASPIRIN PO SCH (12:29)
[2018-09-18] MEDS: XYLOCAINE 2% INFILTRATI ONE ×2 (12:45→12:52)
[2018-09-18] MEDS ORDERED: NACL 0.9% 100 ML IV PRN (12:45)
--- NOTE | 2018-09-18 13:05 | Operative Report ---
Operative Report Operative Report: Operative note: Date: 09/18/2018 Preoperative diagnosis: Malfunctioning left femoral dialysis catheter Postoperative diagnosis: Same. Operation: Left femoral PermCath exchange Surgeon: January Guerrero. Asst.: None Anesthesia: local with moderate sedation. EBL: Minimal Findings: Catheter positioned in the IVC atrial junction Indications: Patient was multiple failed previous AV accesses and left femoral PermCath missed dialysis since and I'll had nonfunctional left femoral PermCath. She was explained risks, benefits and alternatives of procedure and chose to proceed and signed informed consent. Operative details: Patient was brought to labeling specialist and positioned in the supine position with left femoral PermCath prepped and draped in sterile fashion. A timeout performed and all team members in the agreement, stiff Glidewires were inserted and advanced under fluoroscopic guidance through the venous and arterial ports of PermCath and advanced to inferior vena cava. Care was infiltrated with lidocaine around the PermCath site. Small incision was made just at the PermCath skin insertion point and dilated with hemostat, dissecting around cuff. Old permacath was removed and new 55 cm PermCath was advanced over 2 Glidewires and inserted through the previous orifice into the proximal IVC. Wires were removed and ports were flushed with saline and checked for good blood flow. Cath ports were locked with heparin 3.0 mL in each. Patient tolerated procedure well and was transferred to PACU in stable condition to traveled dialysis.
--- NOTE | 2018-09-18 14:26 | Consultation ---
History of Present Illness - Reason for Consult Consult date: 09/18/18 - History of Present Illness She is 37 years old female with history of end-stage renal disease on hemodialysis, hypertension, diabetes and left sided CVA with paralysis. She is known to our service for previous dialysis access placement and creation. She had left arm AVG placed during her last hospital admission on 09/08/18. It was a rapid access graft. Per her history the access was never used. She presented to the ER stating that her dialysis access is not working. The AVG has been not working for unknown period, as she cannot recall when she could no longer palpate thrill. Currently she has left femoral permacath which is not functioning well for her hemodialysis. Vascular surgery consult requested for exchange of left femoral permacath and evaluation of left arm AVG. Past History Past Medical History: anemia, diabetes, ESRD, hypertension, hyperlipidemia, stroke, other (Legally Blind) Past Surgical History: cataract removal, Other (Left arm AVG 08/2018. right arm AVG unknown date of placement, Left femoral permacath) Social history: , lives with family. denies: smoking, alcohol abuse, prescription drug abuse Medications and Allergies Allergies Allergy/AdvReac Type Severity Reaction Status Date / Time Fish Containing Products Allergy Rash Verified 07/10/18 17:56 metformin Allergy Hives Verified 10/25/16 01:38 metoclopramide HCl Allergy Hives Verified 10/25/16 01:38 [From Reglan] prochlorperazine Allergy Hives Verified 10/25/16 01:38 [From Compazine] prochlorperazine edisylate Allergy Hives Verified 10/25/16 01:38 [From Compazine] prochlorperazine maleate Allergy Hives Verified 10/25/16 01:38 [From Compazine] haloperidol [From Haldol] AdvReac Unknown Verified 09/06/18 10:05 shellfish Allergy Swelling Uncoded 07/30/18 12:26 Home Medications Medication Instructions Recorded Confirmed Last Taken Type Apixaban [Eliquis] 2.5 mg PO Q12HR #60 tablet 08/04/18 08/27/18 08/23/18 Rx Aspirin [Aspirin BABY CHEW TAB] 81 mg PO QDAY #30 tab.chew 08/04/18 08/27/18 08/23/18 Rx AtorvaSTATin [Lipitor] 40 mg PO QHS #30 tablet 08/04/18 08/27/18 08/23/18 Rx Labetalol [Normodyne TAB] 300 mg PO TID #90 tablet 08/04/18 08/27/18 08/23/18 Rx Pantoprazole [Protonix TAB] 40 mg PO BID #60 tablet 08/04/18 08/27/18 08/23/18 Rx amLODIPine [Norvasc] 10 mg PO DAILY #30 tablet 08/04/18 08/27/18 08/23/18 Rx cloNIDine [Catapres] 0.2 mg PO TID #90 tablet 08/04/18 08/27/18 08/23/18 Rx hydrALAZINE [Apresoline TAB] 50 mg PO Q8HR #90 tablet 08/04/18 08/27/18 08/23/18 Rx Ondansetron [Zofran ODT TAB] 4 mg PO Q8HR #20 tab.rapdis 08/07/18 08/27/18 08/23/18 Rx Promethazine [Phenergan SUPPOS] 25 mg [place] Q6HR PRN #10 supp.rect 08/08/18 08/27/18 08/23/18 Rx Promethazine [Phenergan SUPPOS] 25 mg ME Q6HR PRN #30 supp.rect 08/23/18 08/27/18 08/23/18 Rx HYDROcodone/APAP 5-325 [[place] 1 - 2 each PO Q6HR PRN 12 Days #14 09/08/18 Unknown Rx 5-325 mg TAB] tablet traMADol [Ultram 50 MG tab] 50 mg PO Q6H PRN #20 tablet 09/08/18 Unknown Rx Active Meds: Active Medications Acetaminophen (Tylenol) 650 mg PO Q4H PRN PRN Reason: Pain MILD(1-3)/Fever >100.5/CHAVES Albuterol (Proventil) 2.5 mg IH Q4HRT PRN PRN Reason: Shortness Of Breath Amlodipine Besylate (Norvasc) 10 mg PO DAILY [facility] Last Admin: 09/18/18 12:29 Dose: Not Given Documented by: Apixaban (Eliquis) 2.5 mg PO Q12HR TRUDI; Protocol Last Admin: 09/18/18 12:29 Dose: Not Given Documented by: Aspirin (Baby Aspirin) 81 mg PO QDAY [facility] Last Admin: 09/18/18 12:29 Dose: Not Given Documented by: Atorvastatin Calcium (Lipitor) 40 mg PO QHS [facility] Last Admin: 09/18/18 00:22 Dose: Not Given Documented by: Clonidine HCl (Catapres) 0.2 mg PO TID [facility] Last Admin: 09/18/18 08:35 Dose: Not Given Documented by: Hydralazine HCl (Apresoline) 50 mg PO Q8HR [facility] [place] Last Admin: 09/18/18 05:04 Dose: Not Given Documented by: Hydralazine HCl (Apresoline) 5 mg IV Q6H PRN PRN Reason: Increased Blood Pressure Last Admin: 09/18/18 05:18 Dose: 5 mg Documented by: Sodium Chloride (Nacl 0.9%) 100 mls @ 999 mls/hr IV ELANA PRN PRN Reason: Hypotension Labetalol HCl (Normodyne) 300 mg PO TID [facility] Last Admin: 09/18/18 08:35 Dose: Not Given Documented by: Morphine Sulfate (Morphine) 2 mg IV Q4H PRN PRN Reason: Pain, Moderate (4-6) Last Admin: 09/18/18 09:13 Dose: 2 mg Documented by: Ondansetron HCl (Zofran Odt) 4 mg PO Q8HR [facility] [place] Last Admin: 09/18/18 05:29 Dose: Not Given Documented by: Ondansetron HCl (Zofran) 4 mg IV Q4H PRN PRN Reason: N/V IF NPO AND NO IV ACCESS Last Admin: 09/18/18 09:12 Dose: 4 mg Documented by: Pantoprazole Sodium (Protonix) 40 mg PO BID [facility] [place] Last Admin: 09/18/18 12:29 Dose: Not Given Documented by: Sodium Chloride (Sodium Chloride Flush Syringe 10 Ml) 10 ml IV BID [facility] Last Admin: 09/18/18 04:57 Dose: 10 ml Documented by: Sodium Chloride (Sodium Chloride Flush Syringe 10 Ml) 10 ml IV PRN PRN PRN Reason: LINE FLUSH Tramadol HCl (Ultram) 50 mg PO Q6H PRN PRN Reason: Pain, Moderate (4-6) Review of Systems Constitutional: weakness, poor appetite, no weight loss, no fever, no chills Eyes: bilateral: other (blind) Gastrointestinal: nausea, vomiting Musculoskeletal: muscle weakness Integumentary: no rash, no wounds Neurological: paralysis (left arm) Exam - Constitutional Vitals: Temp Pulse Resp BP Pulse Ox 98.2 F 86 18 188/94 96 09/18/18 14:02 09/18/18 14:02 09/18/18 14:02 09/18/18 14:02 09/18/18 11:46 General appearance: Present: obese - Neck Neck: Present: supple, normal ROM - Respiratory Respiratory effort: normal, other (nonlabored at rest) - Extremities Extremities: no ischemia (left arm flaccid. Left upper AVG no thrill . Right upper arm AVG no thrill) - Musculoskeletal Musculoskeletal: left sided weakness - Psychiatric Psychiatric: appropriate mood/affect, memory intact, cooperative - Neurologic Neurologic: no focal deficits Results - Labs CBC & Chem 7: 09/17/18 14:29 09/17/18 14:29 Labs: Abnormal lab results 09/17/18 09/17/18 09/17/18 Range/Units 14:29 14:29 23:40 RBC 2.59 L (3.65-5.03) M/mm3 Hgb 7.8 L (10.1-14.3) gm/dl Hct 24.1 L (30.3-42.9) % RDW 15.7 H (13.2-15.2) % Plt Count 505 H (140-440) K/mm3 [place] % (Auto) 9.1 H (0.0-7.3) % Potassium 3.4 L (3.6-5.0) mmol/L Chloride 94.9 L (98-107) mmol/L BUN 56 H (7-17) mg/dL Creatinine 7.9 H (0.7-1.2) mg/dL Glucose 131 H (65-100) mg/dL POC Glucose 127 H (70-105) Calcium 8.3 L (8.4-10.2) mg/dL 09/18/18 09/18/18 Range/Units 07:44 11:03 RBC (3.65-5.03) M/mm3 Hgb (10.1-14.3) gm/dl Hct (30.3-42.9) % RDW (13.2-15.2) % Plt Count (140-440) K/mm3 [place] % (Auto) (0.0-7.3) % Potassium (3.6-5.0) mmol/L Chloride (98-107) mmol/L BUN (7-17) mg/dL Creatinine (0.7-1.2) mg/dL Glucose (65-100) mg/dL POC Glucose 115 H 118 H (70-105) Calcium (8.4-10.2) mg/dL Assessment and Plan ESRD on Hemodialysis/ Mechanical omplication of vascular access She has ESRD currently hemodialysis. A left femoral permacath is present but is not functioning well. Will plan for exchange today. Risks benefits and alternatives discussed in detail. Mechanical complication of vascular access graft She has new left arm AVG created about 2 weeks ago. It is unclear when the access thrombosed, she is unsure when it stopped working. It has never been used per her history. Will plan for attempt thrombectomy of AVG.
[2018-09-18] MEDS ORDERED: NACL 0.9 (PRIMING MACHINE ONLY DIALYSIS) MC ONE (15:12)
--- NOTE | 2018-09-18 15:44 | Consultation ---
History of Present Illness - Reason for Consult Consult date: 09/18/18 end stage renal disease Requesting physician: KYLER LAMA - History of Present Illness Patient is 37 years old female with history of end-stage renal disease on hemodialysis, hypertension, diabetes and left sided CVA with paralysis. Patient presented to the ER stating that her dialysis access is not working. Patient stated that she had a left arm AV graft and now it does not have any thrill. Patient also had a left femoral permacath that is not be functioning well. Patient stated that she went to dialysis on and it was very slow. Patient missed dialysis on Monday. Patient stated that her accountant auditor is Dr. Oliveira. Patient denying any shortness of breath, chest pain, fevers chills or abdominal pain. ROS: Stated complaint: GENERAL SICKNESS Other details as noted in HPI Comment: All other systems reviewed and negative Constitutional: denies: chills, fever Respiratory: denies: cough, orthopnea, shortness of breath, SOB with exertion Cardiovascular: denies: chest pain, palpitations Gastrointestinal: denies: abdominal pain, nausea, vomiting, diarrhea, constipation, hematemesis, hematochezia Neurological: denies: headache, weakness, numbness, paresthesias, confusion - Past Medical History Hx Hypertension: Yes Hx CVA: Yes (multiple- L sided deficits, 12 CVA) Hx Congestive Heart Failure: No Hx Diabetes: Yes Hx Renal Disease: Yes (ESRD, HD ) Hx Sickle Cell Disease: No Hx Asthma: No Hx COPD: No Hx Dementia: No Hx HIV: No Additional medical history: anemia - Surgical History Hx Pacemaker: Yes (gastric pacemaker ) Hx Cholecystectomy: Yes Additional Surgical History: catheter placement for Hemo),bilayeral eye sugery(cataract), av fistula, gastric pacemaker for gastroparesis - Social History Smoking Status: Never Smoker Substance Use Type: None Past History Past Medical History: anemia, diabetes, ESRD, hypertension, hyperlipidemia, stroke, other (Legally Blind) Past Surgical History: cataract removal, Other (Left arm AVG 08/2018. right arm AVG unknown date of placement, Left femoral permacath) Social history: , lives with family. denies: smoking, alcohol abuse, prescription drug abuse Medications and Allergies Allergies Allergy/AdvReac Type Severity Reaction Status Date / Time Fish Containing Products Allergy Rash Verified 07/10/18 17:56 metformin Allergy Hives Verified 10/25/16 01:38 metoclopramide HCl Allergy Hives Verified 10/25/16 01:38 [From Reglan] prochlorperazine Allergy Hives Verified 10/25/16 01:38 [From Compazine] prochlorperazine edisylate Allergy Hives Verified 10/25/16 01:38 [From Compazine] prochlorperazine maleate Allergy Hives Verified 10/25/16 01:38 [From Compazine] haloperidol [From Haldol] AdvReac Unknown Verified 09/06/18 10:05 shellfish Allergy Swelling Uncoded 07/30/18 12:26 Home Medications Medication Instructions Recorded Confirmed Last Taken Type Apixaban [Eliquis] 2.5 mg PO Q12HR #60 tablet 08/04/18 08/27/18 08/23/18 Rx Aspirin [Aspirin BABY CHEW TAB] 81 mg PO QDAY #30 tab.chew 08/04/18 08/27/18 08/23/18 Rx AtorvaSTATin [Lipitor] 40 mg PO QHS #30 tablet 08/04/18 08/27/18 08/23/18 Rx Labetalol [Normodyne TAB] 300 mg PO TID #90 tablet 08/04/18 08/27/18 08/23/18 Rx Pantoprazole [Protonix TAB] 40 mg PO BID #60 tablet 08/04/18 08/27/18 08/23/18 Rx amLODIPine [Norvasc] 10 mg PO DAILY #30 tablet 08/04/18 08/27/18 08/23/18 Rx cloNIDine [Catapres] 0.2 mg PO TID #90 tablet 08/04/18 08/27/18 08/23/18 Rx hydrALAZINE [Apresoline TAB] 50 mg PO Q8HR #90 tablet 08/04/18 08/27/18 08/23/18 Rx Ondansetron [Zofran ODT TAB] 4 mg PO Q8HR #20 tab.rapdis 08/07/18 08/27/18 08/23/18 Rx Promethazine [Phenergan SUPPOS] 25 mg [place] Q6HR PRN #10 supp.rect 08/08/18 08/27/18 08/23/18 Rx Promethazine [Phenergan SUPPOS] 25 mg [place] Q6HR PRN #30 supp.rect 08/23/18 08/27/18 08/23/18 Rx HYDROcodone/APAP 5-325 [[place] 1 - 2 each PO Q6HR PRN 12 Days #14 09/08/18 Unknown Rx 5-325 mg TAB] tablet traMADol [Ultram 50 MG tab] 50 mg PO Q6H PRN #20 tablet 09/08/18 Unknown Rx Active Meds: Active Medications Acetaminophen (Tylenol) 650 mg PO Q4H PRN PRN Reason: Pain MILD(1-3)/Fever >100.5/CHAVES Albuterol (Proventil) 2.5 mg IH Q4HRT PRN PRN Reason: Shortness Of Breath Amlodipine Besylate (Norvasc) 10 mg PO DAILY [facility] Last Admin: 09/18/18 12:29 Dose: Not Given Documented by: Apixaban (Eliquis) 2.5 mg PO Q12HR [facility]; Protocol Last Admin: 09/18/18 12:29 Dose: Not Given Documented by: Aspirin (Baby Aspirin) 81 mg PO QDAY [facility] Last Admin: 09/18/18 12:29 Dose: Not Given Documented by: Atorvastatin Calcium (Lipitor) 40 mg PO QHS [facility] Last Admin: 09/18/18 00:22 Dose: Not Given Documented by: Clonidine HCl (Catapres) 0.2 mg PO TID [facility] Last Admin: 09/18/18 14:28 Dose: Not Given Documented by: Hydralazine HCl (Apresoline) 50 mg PO Q8HR [facility] Last Admin: 09/18/18 14:28 Dose: Not Given Documented by: Hydralazine HCl (Apresoline) 5 mg IV Q6H PRN PRN Reason: Increased Blood Pressure Last Admin: 09/18/18 05:18 Dose: 5 mg Documented by: Sodium Chloride (Nacl 0.9%) 100 mls @ 999 mls/hr IV ELANA PRN PRN Reason: Hypotension Labetalol HCl (Normodyne) 300 mg PO TID [facility] Last Admin: 09/18/18 14:28 Dose: Not Given Documented by: Morphine Sulfate (Morphine) 2 mg IV Q4H PRN PRN Reason: Pain, Moderate (4-6) Last Admin: 01/29/19 15:15 Dose: 2 mg Documented by: Ondansetron HCl (Zofran Odt) 4 mg PO Q8HR [facility] Last Admin: 09/18/18 14:28 Dose: Not Given Documented by: Ondansetron HCl (Zofran) 4 mg IV Q4H PRN PRN Reason: N/V IF NPO AND NO IV ACCESS Last Admin: 09/18/18 15:34 Dose: 4 mg Documented by: Pantoprazole Sodium (Protonix) 40 mg PO BID [facility] Last Admin: 09/18/18 12:29 Dose: Not Given Documented by: Sodium Chloride (Sodium Chloride Flush Syringe 10 Ml) 10 ml IV BID [facility] Last Admin: 09/18/18 04:57 Dose: 10 ml Documented by: Sodium Chloride (Sodium Chloride Flush Syringe 10 Ml) 10 ml IV PRN PRN PRN Reason: LINE FLUSH Tramadol HCl (Ultram) 50 mg PO Q6H PRN PRN Reason: Pain, Moderate (4-6) Exam - Vital Signs Vital signs: Vital Signs Temp Pulse Resp BP Pulse Ox 98.4 F 85 16 135/69 99 09/17/18 13:06 09/17/18 13:06 09/17/18 13:06 09/17/18 13:06 09/17/18 13:06 - Physical Exam Narrative exam: - General Limitations: No Limitations General appearance: alert, in no apparent distress - Head Head exam: Present: atraumatic, normocephalic, normal inspection - Eye Eye exam: Present: normal appearance, PERRL - ENT ENT exam: Present: normal exam, normal orophraynx, mucous membranes moist - Neck Neck exam: Present: normal inspection, full ROM. Absent: tenderness, meningismus, lymphadenopathy, thyromegaly - Respiratory Respiratory exam: Present: normal lung sounds bilaterally. Absent: respiratory distress, wheezes, rales, rhonchi, accessory muscle use, decreased breath sounds, prolonged expiratory - Cardiovascular Cardiovascular Exam: Present: regular rate, normal rhythm, normal heart sounds - GI/Abdominal GI/Abdominal exam: Present: soft, normal bowel sounds. Absent: distended, tenderness, guarding, rebound, rigid, mass, bruit, pulsatile mass, hernia - Extremities Exam Extremities exam: Present: other (left arm graft with no palpable thrill) - Back Exam Back exam: Present: normal inspection, full ROM - Neurological Exam Neurological exam: Present: alert, oriented X3, CN II-XII intact, reflexes normal - Skin Skin exam: Present: warm, intact, normal color Results - Lab Results 09/17/18 14:29 09/17/18 14:29 Most recent lab results Calcium 8.3 mg/dL (8.4-10.2) L 09/17/18 14:29 Assessment and Plan Impression * end-stage renal disease * malfunction hd catheter * Clotted AV graft * Uncontrolled hypertension * type 2 DM * Anemia secondary to ESRD Recommendations * s/p fem perm cath placement, today and hd q MWF, * Adjust diet and meds for ESRD state * Procrit with dialysis * Binders with meals * Avoid nephrotoxins
[2018-09-19] MEDS: MORPHINE IV PRN ×4 (00:19→16:18)
[2018-09-19] MEDS: ZOFRAN IV PRN ×3 (00:22→16:19)
[2018-09-19] MEDS: APRESOLINE PO SCH ×2 (05:12→15:06)
[2018-09-19] MEDS: ZOFRAN ODT PO SCH ×2 (05:14→15:06)
[2018-09-19 07:48] LABS: Hematocrit 24.6 % (30.3-42.9); Hemoglobin 8.2 gm/dl (10.1-14.3); Mean Corpuscular HGB Conc 33 % (30-34); Mean Corpuscular Volume 92 fl (79-97); Platelet Count 471 K/mm3 (140-440); Red Blood Count 2.68 M/mm3 (3.65-5.03)
[2018-09-19] MEDS: NORMODYNE PO SCH ×2 (09:19→15:06)
[2018-09-19] MEDS: CATAPRES PO SCH ×2 (09:19→15:06)
--- NOTE | 2018-09-19 09:54 | Progress Note ---
Assessment and Plan Patient will be brought down to the assistant laboratory director today for thrombectomy of her early access graft in her left arm. Further recommendations to follow. Subjective Date of service: 09/19/18 Principal diagnosis: malfunctioning dialysis access Interval history: Patient with a history of thrombosed recently placed early access graft in her left upper arm. On presentation to the hospital, the patient has a PermCath placed and underwent dialysis. She has no specific complaints at this time. Objective - Constitutional Vitals: Vital Signs - 12hr 09/18/18 09/18/18 09/19/18 22:00 22:23 00:19 Temperature 98.1 F Pulse Rate 87 Respiratory 20 20 20 Rate Blood Pressure 145/69 O2 Sat by Pulse 97 98 Oximetry 09/19/18 09/19/18 09/19/18 00:20 00:49 03:09 Temperature Pulse Rate 83 81 Respiratory 20 Rate Blood Pressure 122/69 O2 Sat by Pulse Oximetry 09/19/18 09/19/18 09/19/18 04:41 05:12 05:13 Temperature 98.0 F Pulse Rate 79 79 Respiratory 18 20 Rate Blood Pressure 101/55 101/55 O2 Sat by Pulse 97 Oximetry 09/19/18 09/19/18 05:43 08:34 Temperature Pulse Rate Respiratory 20 Rate Blood Pressure O2 Sat by Pulse 97 Oximetry General appearance: Present: no acute distress, obese - EENT Eyes: EOM intact ENT: hearing intact - Neck Neck: supple, normal ROM - Respiratory Respiratory effort: normal - Breasts Breasts: deferred - Cardiovascular Rhythm: regular Extremities: abnormal Extremity abnormal: edema - Gastrointestinal General gastrointestinal: Present: deferred Rectal Exam: deferred - Genitourinary Female genitourinary: deferred - Psychiatric Psychiatric: appropriate mood/affect, cooperative - Labs CBC & Chem 7: 09/19/18 06:50 09/19/18 06:50 Labs: Abnormal lab results 09/18/18 09/19/18 09/19/18 Range/Units 11:03 06:50 06:50 RBC 2.68 L (3.65-5.03) M/mm3 Hgb 8.2 L (10.1-14.3) gm/dl Hct 24.6 L (30.3-42.9) % RDW 16.0 H (13.2-15.2) % Plt Count 471 H (140-440) K/mm3 Potassium 3.5 L (3.6-5.0) mmol/L Chloride 96.7 L (98-107) mmol/L Carbon Dioxide 31 H D (22-30) mmol/L BUN 25 H (7-17) mg/dL Creatinine 4.9 H (0.7-1.2) mg/dL Glucose 105 H (65-100) mg/dL POC Glucose 118 H (70-105) Medications & Allergies - Medications Allergies/Adverse Reactions: Allergies Fish Containing Products Allergy (Verified 07/10/18 17:56) Rash metformin Allergy (Verified 10/25/16 01:38) Hives metoclopramide HCl [From Reglan] Allergy (Verified 10/25/16 01:38) Hives prochlorperazine [From Compazine] Allergy (Verified 10/25/16 01:38) Hives prochlorperazine edisylate [From Compazine] Allergy (Verified 10/25/16 01:38) Hives prochlorperazine maleate [From Compazine] Allergy (Verified 10/25/16 01:38) Hives haloperidol [From Haldol] Adverse Reaction (Verified 09/06/18 10:05) Unknown PT STATES HER TEETH CHATTERED AND HER "EYES DRIFTED OFF" shellfish Allergy (Uncoded 07/30/18 12:26) Swelling Home Medications: Home Medications Medication Instructions Recorded Confirmed Last Taken Type Apixaban [Eliquis] 2.5 mg PO Q12HR #60 tablet 08/04/18 08/27/18 08/23/18 Rx Aspirin [Aspirin BABY CHEW TAB] 81 mg PO QDAY #30 tab.chew 08/04/18 08/27/18 08/23/18 Rx AtorvaSTATin [Lipitor] 40 mg PO QHS #30 tablet 08/04/18 08/27/18 08/23/18 Rx Labetalol [Normodyne TAB] 300 mg PO TID #90 tablet 08/04/18 08/27/18 08/23/18 Rx Pantoprazole [Protonix TAB] 40 mg PO BID #60 tablet 08/04/18 08/27/18 08/23/18 Rx amLODIPine [Norvasc] 10 mg PO DAILY #30 tablet 08/04/18 08/27/18 08/23/18 Rx cloNIDine [Catapres] 0.2 mg PO TID #90 tablet 08/04/18 08/27/18 08/23/18 Rx hydrALAZINE [Apresoline TAB] 50 mg PO Q8HR #90 tablet 08/04/18 08/27/18 08/23/18 Rx Ondansetron [Zofran ODT TAB] 4 mg PO Q8HR #20 tab.rapdis 08/07/18 08/27/18 08/23/18 Rx Promethazine [Phenergan SUPPOS] 25 mg [place] Q6HR PRN #10 supp.rect 08/08/18 08/27/18 08/23/18 Rx Promethazine [Phenergan SUPPOS] 25 mg [place] Q6HR PRN #30 supp.rect 08/23/18 08/27/18 08/23/18 Rx HYDROcodone/APAP 5-325 [[place] 1 - 2 each PO Q6HR PRN 12 Days #14 09/08/18 Unknown Rx 5-325 mg TAB] tablet traMADol [Ultram 50 MG tab] 50 mg PO Q6H PRN #20 tablet 09/08/18 Unknown Rx Active Medications: Generic Name Dose Route Start Last Admin Trade Name Freq PRN Reason Stop Dose Admin Acetaminophen 650 mg 09/17/18 20:16 Tylenol PO Q4H PRN Pain MILD(1-3)/Fever >100.5/CHAVSE Albuterol 2.5 mg 09/17/18 20:16 Proventil IH Q4HRT PRN Shortness Of Breath Amlodipine Besylate 10 mg 09/18/18 10:00 09/18/18 12:29 Norvasc PO Not Given DAILY TRUDI Apixaban 2.5 mg 09/17/18 22:00 09/18/18 23:00 Eliquis PO 2.5 mg Q12HR TRUDI Administration Protocol Aspirin 81 mg 09/18/18 10:00 09/18/18 12:29 Baby Aspirin PO Not Given QDAY TR[facility]I Atorvastatin Calcium 40 mg 09/17/18 22:00 09/18/18 23:00 Lipitor PO 40 mg QHS TRUDI Administration Clonidine HCl 0.2 mg 09/18/18 08:00 09/19/18 09:19 Catapres PO Not Given TID TR[facility] Hydralazine HCl 50 mg 09/17/18 22:00 09/19/18 05:12 Apresoline PO Not Given Q8HR [facility]I Hydralazine HCl 5 mg 09/18/18 05:01 09/18/18 05:18 Apresoline IV 5 mg Q6H PRN Administration Increased Blood Pressure Sodium Chloride 100 mls @ 999 mls/hr 09/18/18 12:45 Nacl 0.9% IV ELANA PRN Hypotension Labetalol HCl 300 mg 09/18/18 08:00 09/19/18 09:19 Normodyne PO Not Given TID TR[facility]I Morphine Sulfate 2 mg 09/17/18 23:12 09/19/18 09:19 Morphine IV 2 mg Q4H PRN Administration Pain, Moderate (4-6) Ondansetron HCl 4 mg 09/17/18 22:00 09/19/18 05:14 Zofran Odt PO Not Given Q8HR [facility] Ondansetron HCl 4 mg 09/17/18 23:13 09/19/18 05:13 Zofran IV 4 mg Q4H PRN Administration N/V IF NPO AND NO IV ACCESS Pantoprazole Sodium 40 mg 09/17/18 22:00 09/18/18 23:00 Protonix PO 40 mg BID TRUDI Administration Sodium Chloride 10 ml 09/17/18 22:00 09/18/18 23:00 Sodium Chloride Flush Syringe 10 Ml IV 10 ml BID TRUDI Administration Sodium Chloride 10 ml 09/17/18 20:16 Sodium Chloride Flush Syringe 10 Ml IV PRN PRN LINE FLUSH Tramadol HCl 50 mg 09/17/18 20:18 Ultram PO Q6H PRN Pain, Moderate (4-6)
[2018-09-19] MEDS ORDERED: HEPARIN 10,000 UNITS/10 ML ONE (10:00)
[2018-09-19] MEDS ORDERED: ZOFRAN ONE (10:01)
[2018-09-19] MEDS: VERSED ONE ×2 (10:34→11:12)
[2018-09-19] MEDS: SUBLIMAZE ONE ×2 (10:35→11:12)
[2018-09-19] MEDS: XYLOCAINE 1% 20 mL ONE ×2 (10:51→11:12)
[2018-09-19] MEDS: HEPARIN/NS 5000 UNIT/500ML(CATH LAB) 500 ML IR ONE ×2 (11:06→11:10)
[2018-09-19] MEDS: NACL 0.9% 500 ML 500 ML ONE ×2 (11:06→11:10)
--- NOTE | 2018-09-19 11:25 | Operative Report ---
Operative Report Operative Report: Exam: Left upper extremity ultrasound evaluation of fistula Clinical indication: Patient with recently placed early access graft, graft malfunction Date: 09/19/2018 Procedure: Following an expiration of the risks, benefits and alternatives; written informed consent was obtained. The patient was brought to the idiopathic suite and placed in supine position on the examination table. Her left upper arm was prepped and draped in the usual sterile fashion. Ultrasound was used to evaluate the access graft from the arterial anastomosis to the venous anastomosis. The graft is patent. In the midportion of the graft, the graft is twisted which collapses to graft in the midportion. The graft is flattened distal to this twisting secondary to decrease in flow. At this point, the procedure was terminated. Patient tolerated the procedure well. There were no immediate post procedure complications. Minimal conscious sedation was utilized. Continuous cardiopulmonary monitoring is utilized. Impression: Ultrasound-guided evaluation of left upper arm early access graft demonstrating twisting in the midportion of graft. The graft will have to be untwisted surgically. The graft is patent.
[2018-09-19] MEDS ORDERED: NACL 0.9 (PRIMING MACHINE ONLY DIALYSIS) MC ONE (12:11)
--- NOTE | 2018-09-19 12:43 | Progress Note ---
Assessment and Plan Impression * end-stage renal disease * malfunction hd catheter * Clotted AV graft * Uncontrolled hypertension * type 2 DM * Anemia secondary to ESRD Recommendations * s/p fem perm cath placement, today and hd q MWF, * angiogram noted, will need surgical correction of av graft * Adjust diet and meds for ESRD state * Procrit with dialysis * Binders with meals * Avoid nephrotoxins Subjective Date of service: 09/19/18 Principal diagnosis: malfunctioning dialysis access Interval history: resting well in bed today Objective - Exam Narrative Exam: - General Limitations: No Limitations General appearance: alert, in no apparent distress - Head Head exam: Present: atraumatic, normocephalic, normal inspection - Eye Eye exam: Present: normal appearance, PERRL - ENT ENT exam: Present: normal exam, normal orophraynx, mucous membranes moist - Neck Neck exam: Present: normal inspection, full ROM. Absent: tenderness, meningismus, lymphadenopathy, thyromegaly - Respiratory Respiratory exam: Present: normal lung sounds bilaterally. Absent: respiratory distress, wheezes, rales, rhonchi, accessory muscle use, decreased breath sound s, prolonged expiratory - Cardiovascular Cardiovascular Exam: Present: regular rate, normal rhythm, normal heart sounds - GI/Abdominal GI/Abdominal exam: Present: soft, normal bowel sounds. Absent: distended, tenderness, guarding, rebound, rigid, mass, bruit, pulsatile mass, hernia - Extremities Exam Extremities exam: Present: other (left arm graft with no palpable thrill) - Back Exam Back exam: Present: normal inspection, full ROM - Neurological Exam Neurological exam: Present: alert, oriented X3, CN II-XII intact, reflexes normal - Skin Skin exam: Present: warm, intact, normal color - Vital Signs Vital signs: Vital Signs - 12hr 09/19/18 09/19/18 09/19/18 00:49 03:09 04:41 Temperature 98.0 F Pulse Rate 81 79 Respiratory 20 18 Rate Blood Pressure 101/55 O2 Sat by Pulse 97 Oximetry 09/19/18 09/19/18 09/19/18 05:12 05:13 05:43 Temperature Pulse Rate 79 Respiratory 20 20 Rate Blood Pressure 101/55 O2 Sat by Pulse Oximetry 09/19/18 09/19/18 09/19/18 08:34 11:57 12:00 Temperature Pulse Rate 78 75 Respiratory Rate Blood Pressure 115/67 135/73 O2 Sat by Pulse 97 Oximetry 09/19/18 09/19/18 12:15 12:30 Temperature Pulse Rate 75 77 Respiratory Rate Blood Pressure 123/66 114/60 O2 Sat by Pulse Oximetry - Lab 09/19/18 06:50 09/19/18 06:50 Most recent lab results Calcium 9.0 mg/dL (8.4-10.2) 09/19/18 06:50 Medications & Allergies - Medications Allergies/Adverse Reactions: Allergies Fish Containing Products Allergy (Verified 07/10/18 17:56) Rash metformin Allergy (Verified 10/25/16 01:38) Hives metoclopramide HCl [From Reglan] Allergy (Verified 10/25/16 01:38) Hives prochlorperazine [From Compazine] Allergy (Verified 10/25/16 01:38) Hives prochlorperazine edisylate [From Compazine] Allergy (Verified 10/25/16 01:38) Hives prochlorperazine maleate [From Compazine] Allergy (Verified 10/25/16 01:38) Hives haloperidol [From Haldol] Adverse Reaction (Verified 09/06/18 10:05) Unknown PT STATES HER TEETH CHATTERED AND HER "EYES DRIFTED OFF" shellfish Allergy (Uncoded 07/30/18 12:26) Swelling Home Medications: Home Medications Medication Instructions Recorded Confirmed Last Taken Type Apixaban [Eliquis] 2.5 mg PO Q12HR #60 tablet 08/04/18 08/27/18 08/23/18 Rx Aspirin [Aspirin BABY CHEW TAB] 81 mg PO QDAY #30 tab.chew 08/04/18 08/27/18 08/23/18 Rx AtorvaSTATin [Lipitor] 40 mg PO QHS #30 tablet 08/04/18 08/27/18 08/23/18 Rx Labetalol [Normodyne TAB] 300 mg PO TID #90 tablet 08/04/18 08/27/18 08/23/18 Rx Pantoprazole [Protonix TAB] 40 mg PO BID #60 tablet 08/04/18 08/27/18 08/23/18 Rx amLODIPine [Norvasc] 10 mg PO DAILY #30 tablet 08/04/18 08/27/18 08/23/18 Rx cloNIDine [Catapres] 0.2 mg PO TID #90 tablet 08/04/18 08/27/18 08/23/18 Rx hydrALAZINE [Apresoline TAB] 50 mg PO Q8HR #90 tablet 08/04/18 08/27/18 08/23/18 Rx Ondansetron [Zofran ODT TAB] 4 mg PO Q8HR #20 tab.rapdis 08/07/18 08/27/18 08/23/18 Rx Promethazine [Phenergan SUPPOS] 25 mg [place] Q6HR PRN #10 supp.rect 08/08/18 08/27/18 08/23/18 Rx Promethazine [Phenergan SUPPOS] 25 mg [place] Q6HR PRN #30 supp.rect 08/23/1808/23/18 Rx HYDROcodone/APAP 5-325 [[place] 1 - 2 each PO Q6HR PRN 12 Days #14 09/08/18 Unkn own Rx 5-325 mg TAB] tablet traMADol [Ultram 50 MG tab] 50 mg PO Q6H PRN #20 tablet 09/08/18 Unknown Rx Active Medications: Generic Name Dose Route Start Last Admin Trade Name Freq PRN Reason Stop Dose Admin Acetaminophen 650 mg 09/17/18 20:16 Tylenol PO Q4H PRN Pain MILD(1-3)/Fever >100.5/CHAVES Albuterol 2.5 mg 09/17/18 20:16 Proventil IH Q4HRT PRN Shortness Of Breath Amlodipine Besylate 10 mg 09/18/18 10:00 09/18/18 12:29 Norvasc PO Not Given DAILY [facility] Apixaban 2.5 mg 09/17/18 22:00 09/18/18 23:00 Eliquis PO 2.5 mg Q12HR TRUDI Administration Protocol Aspirin 81 mg 09/18/18 10:00 09/18/18 12:29 Baby Aspirin PO Not Given QDAY [facility] Atorvastatin Calcium 40 mg 09/17/18 22:00 09/18/18 23:00 Lipitor PO 40 mg QHS TRUDI Administration Clonidine HCl 0.2 mg 09/18/18 08:00 09/19/18 09:19 Catapres PO Not Given TID TRUDI Hydralazine HCl 50 mg 09/17/18 22:00 09/19/18 05:12 Apresoline PO Not Given Q8HR [facility] Hydralazine HCl 5 mg 09/18/18 05:01 09/18/18 05:18 Apresoline IV 5 mg Q6H PRN Administration Increased Blood Pressure Sodium Chloride 100 mls @ 999 mls/hr 09/18/18 12:45 Nacl 0.9% IV ELANA PRN Hypotension Labetalol HCl 300 mg 09/18/18 08:00 09/19/18 09:19 Normodyne PO Not Given TID TRUDI Morphine Sulfate 2 mg 09/17/18 23:12 09/19/18 09:19 Morphine IV 2 mg Q4H PRN Administration Pain, Moderate (4-6) Ondansetron HCl 4 mg 09/17/18 22:00 09/19/18 05:14 Zofran Odt PO Not Given Q8HR [facility] Ondansetron HCl 4 mg 09/17/18 23:13 09/19/18 05:13 Zofran IV 4 mg Q4H PRN Administration N/V IF NPO AND NO IV ACCESS Pantoprazole Sodium 40 mg 09/17/18 22:00 09/18/18 23:00 Protonix PO 40 mg BID TRUDI Administration Sodium Chloride 10 ml 09/17/18 22:00 09/18/18 23:00 Sodium Chloride Flush Syringe 10 Ml IV 10 ml BID TRUDI Administration Sodium Chloride 10 ml 09/17/18 20:16 Sodium Chloride Flush Syringe 10 Ml IV PRN PRN LINE FLUSH Tramadol HCl 50 mg 09/17/18 20:18 Ultram PO Q6H PRN Pain, Moderate (4-6)
--- NOTE | 2018-09-19 12:43 | Progress Note ---
Hospitalist Physical - Constitutional Vitals: Temp Pulse Resp BP Pulse Ox 98.0 F 77 20 114/60 97 09/19/18 04:41 09/19/18 12:30 09/19/18 05:43 09/19/18 12:30 09/19/18 08:34 General appearance: Present: no acute distress, obese Results - Labs CBC & Chem 7: 09/19/18 06:50 09/19/18 06:50 Labs: Laboratory Last Values WBC 6.4 K/mm3 (4.5-11.0) 09/19/18 06:50 RBC 2.68 M/mm3 (3.65-5.03) L 09/19/18 06:50 Hgb 8.2 gm/dl (10.1-14.3) L 09/19/18 06:50 Hct 24.6 % (30.3-42.9) L 09/19/18 06:50 MCV 92 fl (79-97) 09/19/18 06:50 MCH 31 pg (28-32) 09/19/18 06:50 MCHC 33 % (30-34) 09/19/18 06:50 RDW 16.0 % (13.2-15.2) H 09/19/18 06:50 Plt Count 471 K/mm3 (140-440) H 09/19/18 06:50 Lymph % (Auto) 23.7 % (13.4-35.0) 09/17/18 14:29 [place] % (Auto) 9.1 % (0.0-7.3) H 09/17/18 14:29 Eos % (Auto) 2.7 % (0.0-4.3) 09/17/18 14:29 Baso % (Auto) 0.5 % (0.0-1.8) 09/17/18 14:29 Lymph # 2.1 K/mm3 (1.2-5.4) 09/17/18 14:29 [place] # 0.8 K/mm3 (0.0-0.8) 09/17/18 14:29 Eos # 0.2 K/mm3 (0.0-0.4) 09/17/18 14:29 Baso # 0.0 K/mm3 (0.0-0.1) 09/17/18 14:29 Seg Neutrophils % 64.0 % (40.0-70.0) 09/17/18 14:29 Seg Neutrophils # 5.8 K/mm3 (1.8-7.7) 09/17/18 14:29 PT 12.9 Sec. (12.2-14.9) 09/17/18 14:29 INR 0.93 (0.87-1.13) 09/17/18 14:29 APTT 31.5 Sec. (24.2-36.6) 09/17/18 14:29 Sodium 140 mmol/L (137-145) 09/19/18 06:50 Potassium 3.5 mmol/L (3.6-5.0) L 09/19/18 06:50 Chloride 96.7 mmol/L (98-107) L 09/19/18 06:50 Carbon Dioxide 31 mmol/L (22-30) H D 09/19/18 06:50 Anion Gap 16 mmol/L 09/19/18 06:50 BUN 25 mg/dL (7-17) H 09/19/18 06:50 Creatinine 4.9 mg/dL (0.7-1.2) H 09/19/18 06:50 Estimated GFR 12 ml/min 09/19/18 06:50 BUN/Creatinine Ratio 5 % 09/19/18 06:50 Glucose 105 mg/dL (65-100) H 09/19/18 06:50 POC Glucose 103 (70-105) 09/19/18 07:45 Calcium 9.0 mg/dL (8.4-10.2) 09/19/18 06:50 Nutrition/Malnutrition Assess - Dietary Evaluation Nutrition/Malnutrition Findings: Nutrition Notes Start: 09/18/18 14:38 Freq: Status: Active Protocol: Document 09/18/18 14:38 RM (Rec: 09/18/18 14:43 RM [id number]) Nutrition Notes 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 No catherine in record. Pt NPO for permacath replacement. Pt not in room at time of visit. Nurse and tech unsure how much pt was eating before NPO status. No intakes in record. Burn Absent Trauma Absent Nutrition Intervention Follow-Up By: 09/19/18 Additional Comments Follow for assessment
[2018-09-19] MEDS: NORVASC PO SCH (12:47)
[2018-09-19] MEDS: PROTONIX PO SCH (12:47)
[2018-09-19] MEDS: ELIQUIS PO SCH (12:47)
[2018-09-19] MEDS: BABY ASPIRIN PO SCH (12:47)
[2018-09-19] MEDS: SODIUM CHLORIDE FLUSH SYRINGE 10 ML IV SCH (12:48)
--- NOTE | 2018-09-19 14:49 | Discharge Summary ---
Providers - Providers Date of Admission: 09/17/18 20:16 Date of discharge: 09/19/18 Attending physician: SURINDER COVARRUBIAS 09/17/18 17:18 Consult to Physician [CONS] Stat Comment: Consulting Provider: ESTIVEN ALVARENGA Physician Instructions: Reason For Exam: dialysis access malfunction 09/17/18 17:39 Consult to Physician [CONS] Routine Comment: Consulting Provider: ERLINDA HERNANDEZ Physician Instructions: Reason For Exam: ESRD 09/18/18 04:20 Consult to Wound/ET Nurse [CONS] Routine Reason For Exam: wound eval Primary care physician: GUTIERREZ CORBETT Hospitalization Condition: Fair Hospital course: Patient is 37 YO Female with ESRD on hemodialysis, hypertension, hyperlipidemia, stroke, diabetes. Patient stated that her dialysis access is not working and that her last dialysis session was incomplete due to her malfunctioning dialysis access. She was seen and evaluated in ED and admitted. Nephrology was consulted in ED for dialysis. Vascular surgery consulted in ED. She was evaluated by Vas Surgeon and had left femoral perm cath exchange on 09/18/18. Ultrasound of fistula done 09/19/18 shows twisting in midpoint of graft. I discussed with Dr. Calzada, and he states this may be done as outpatient so she was discharged home on 09/19/18. Total time spent on discharge, 33 mins Disposition: [id number] HOME UNDER HOME [facility] - Discharge Diagnoses (1) ESRD on hemodialysis Status: Acute (2) Clotted dialysis access Status: Acute Qualifiers: Encounter type: initial encounter Qualified Code(s): T82.49XA - Other complication of vascular dialysis catheter, initial encounter (3) Dialysis AV fistula malfunction Status: Acute Qualifiers: Encounter type: subsequent encounter Qualified Code(s): T82.590D - Other mechanical complication of surgically created arteriovenous fistula, subsequent encounter (4) Essential hypertension Status: Acute (5) HLD (hyperlipidemia) Status: Acute Qualifiers: Hyperlipidemia type: mixed hyperlipidemia Qualified Code(s): E78.2 - Mixed hyperlipidemia Core Measure Documentation - Palliative Care Palliative Care/ Comfort Measures: Not Applicable - Core Measures Any of the following diagnoses?: none Exam - Constitutional Vitals: Temp Pulse Resp BP Pulse Ox 98.0 F 82 20 99/53 97 09/19/18 12:45 09/19/18 13:45 09/19/18 12:45 09/19/18 13:45 09/19/18 08:34 Plan Activity: no restrictions Diet: low fat, low salt, renal Additional Instructions: 1.Follow up with PCP in 1 week. 2.Follow up with Dr. Calzada on Monday09/21/18 for procedure to left av fistula. 3.Continue routine hemodialysis as scheduled Follow up with: CALLY CALZADA MD [Staff Physician] - 7 Days GUTIERREZ CORBETT MD [Primary Care Provider] - 3-5 Days
[2018-09-19 16:37] VITALS: BP 84/39
[2018-09-19] MEDS ORDERED: TRIPLE ANTIBIOTIC TP ONE (17:08)
[2018-09-19] MEDS ORDERED: FLUSH HEPARIN IV ONE (17:09)
== END 2018-09-19 20:25 | disposition home health service (06) | DRG 314 ==
LOC: ED 12:57 → 3A 20:16
PROVIDERS: ADMIT Internal Medicine; ATTEND Internal Medicine
PROC: 06PYX3Z Removal of Infusion Device from Lower Vein, External Approach (ICD-10-PCS; principal; 2018-09-18)
PROC: 06H033Z Insertion of Infusion Device into Inferior Vena Cava, Percutaneous Approach (ICD-10-PCS; 2018-09-18)
PROC: B5191ZA Fluoroscopy of Inferior Vena Cava using Low Osmolar Contrast, Guidance (ICD-10-PCS; 2018-09-18)
PROC: 5A1D70Z Performance of Urinary Filtration, Intermittent, Less than 6 Hours Per Day (ICD-10-PCS; 2018-09-18)
PROC: B34JZZ3 Ultrasonography of Left Upper Extremity Arteries, Intravascular (ICD-10-PCS; 2018-09-19)
PROC: B549ZZ3 Ultrasonography of Inferior Vena Cava, Intravascular (ICD-10-PCS; 2018-09-19)
PROC: 5A1D70Z Performance of Urinary Filtration, Intermittent, Less than 6 Hours Per Day (ICD-10-PCS; 2018-09-19)
DX: T82.590A Other mechanical complication of surgically created arteriovenous fistula, initial encounter (principal); N18.6 End stage renal disease; I12.0 Hypertensive chronic kidney disease with stage 5 chronic kidney disease or end stage renal disease; I69.354 Hemiplegia and hemiparesis following cerebral infarction affecting left non-dominant side; Y83.2 Surgical operation with anastomosis, bypass or graft as the cause of abnormal reaction of the patient, or of later complication, without mention of misadventure at the time of the procedure; E11.22 Type 2 diabetes mellitus with diabetic chronic kidney disease; D63.1 Anemia in chronic kidney disease; E66.01 Morbid (severe) obesity due to excess calories; T82.49XA Other complication of vascular dialysis catheter, initial encounter; E78.2 Mixed hyperlipidemia; Z79.82 Long term (current) use of aspirin; Y92.89 Other specified places as the place of occurrence of the external cause; Z79.899 Other long term (current) drug therapy; Z99.2 Dependence on renal dialysis; Z90.49 Acquired absence of other specified parts of digestive tract; Z98.49 Cataract extraction status, unspecified eye; Z68.26 Body mass index [BMI] 26.0-26.9, adult; Z91.013 Allergy to seafood
CPT/HCPCS: 36415; 36581; 71045; 76937; 77001; 80048; 82962; 85025; 85027; 85610; 85730; 96374; 96375; 96376; G0378; A6250; A9270-GY; C1750; C1769; J0360; J0690; J1642; J1644; J2250; J2270; J2405; J2765; J3010; J7030; J7040; Q0162

== ENCOUNTER 2018-09-21 08:34 | Day surgery (SDC) | payer OTHER ==
[~2018-09-21 08:34] MED LIST: ANCEF/STERILE WATER 2 GM/20 ML 2 GM/20 ML SYRINGE IV NR; NACL 0.9% 1000 ML 1,000 ML IV SCH
[2018-09-21] MEDS ORDERED: MARCAINE 0.5% INFILTRATI ONE ×3 (08:35→11:34)
[2018-09-21] MEDS ORDERED: HEPARIN 10,000 UNITS/10 ML ONE (08:36)
[2018-09-21] MEDS ORDERED: MARCAINE-EPI 0.5%-1:200,000 INFILTRATI ONE (08:36)
[2018-09-21] MEDS ORDERED: NACL 0.9% 500 ML 500 ML ONE (08:36)
--- NOTE | 2018-09-21 09:44 | Anesthesia Day of Surgery ---
Anesthesia Day of Surgery - Day of Surgery Patient Examined: Yes Patient H&P Reviewed: Yes Patient is NPO: Yes Beta Blockers: Yes
--- NOTE | 2018-09-21 09:44 | Anesthesia Consultation ---
Anesthesia Consult and Med Hx Date of service: 09/21/18 - Airway Anesthetic Teeth Evaluation: Good ROM Head & Neck: Adequate Mental/Hyoid Distance: Adequate Mallampati Class: Class III Intubation Access Assessment: Possibly Difficult - Pre-Operative Health Status ASA Pre-Surgery Classification: ASA3 ( ) Proposed Anesthetic Plan: General - Cardiovascular System Hx Hypertension: Yes Hx Peripheral Vascular Disease: Yes (diabetic ulcer) - Central Nervous System CVA: Yes (left hemiparesis ) Hx Psychiatric Problems: Yes - Endocrine Hx Renal Disease: Yes Hx End Stage Renal Disease: Yes (on dialysis ) Hx Insulin Dependent Diabetes: Yes - Hematic Hx Anemia: Yes - Other Systems Hx Cancer: No Hx Obesity: Yes - Additional Comments Anesthesia Medical History Comments: blind on both eyes
[2018-09-21] MEDS ORDERED: PEPCID IV NR (10:00)
[2018-09-21] MEDS ORDERED: VERSED IV NR (10:00)
[2018-09-21 10:19] LABS: Calcium 9.8 mg/dL (8.4-10.2)
[2018-09-21 10:21] LABS: Basophils # (Auto) 0.1 K/mm3 (0.0-0.1); Basophils % (Auto) 0.9 % (0.0-1.8); Eosinophils # (Auto) 0.2 K/mm3 (0.0-0.4); Eosinophils % (Auto) 2.6 % (0.0-4.3); Hematocrit 27.9 % (30.3-42.9); Hemoglobin 9.3 gm/dl (10.1-14.3); Lymphocytes # (Auto) 1.7 K/mm3 (1.2-5.4); Lymphocytes % (Auto) 21.7 % (13.4-35.0); Mean Corpuscular HGB Conc 33 % (30-34); Mean Corpuscular Volume 92 fl (79-97); Monocytes # (Auto) 0.8 K/mm3 (0.0-0.8); Monocytes % (Auto) 10.2 % (0.0-7.3); Platelet Count 451 K/mm3 (140-440); Red Blood Count 3.01 M/mm3 (3.65-5.03); Red Cell Distribution Width 16.1 % (13.2-15.2)
[2018-09-21] MEDS ORDERED: DIPRIVAN 10 MG/ML IV ONE (10:47)
[2018-09-21] MEDS ORDERED: SUBLIMAZE ONE (10:47)
[2018-09-21] MEDS ORDERED: QUELICIN ONE (10:48)
[2018-09-21] MEDS ORDERED: XYLOCAINE MPF 2% ONE (10:48)
[2018-09-21] MEDS ORDERED: NACL 0.9% IR ONE (11:34)
[2018-09-21] MEDS ORDERED: DILAUDID ONE (12:06)
[2018-09-21] MEDS ORDERED: HEPARIN 10,000 UNITS/10 ML 2,000 UNIT in NACL 0.9% 500 ML 500 ML IR ONE (12:08)
--- NOTE | 2018-09-21 12:56 | Operative Report ---
Operative Report Operative Report: Operative note: Date: 09/21/2018 Preoperative diagnosis: AV graft malfunction Postoperative diagnosis: Same. Operation: Left arm AV graft revision with open thrombectomy Surgeon: January Guerrero. Asst.: None Anesthesia: Gen. EBL: Less than 50 mL Findings: Both AV graft with twist in the middle. After revision excellent thrill in the graft and palpable radial pulse. Indications: 37-year-old female with previous failed AV graft on the right side had recently undergone left arm AV graft placement. It was never accessed before and all felt that those thrombosed. Upon ultrasounding it was seen as a twist at the middle portion. Patient was discussed risks, benefits and alternatives of a graft revision. She agreed and signed informed consent. Operative details: Patient was brought to the operating room and placed in supine position with left arm on extension table. It was prepped and draped in sterile fashion. Timeout was performed and all members in agreement. Ultrasound was used to moody the twist portion. Incision was made along the graft at the marked portion with 15 blade and carried down with electrocautery. Patient was heparinized with 3000 units of heparin. The graft was dissected and clamped with angled DeBakey clamps in the direction of each. Incision was made transecting the graft and sutured with 6-0 Prolene in circumferential fashion. Before completion #3 Natalie was advanced to the venous portion and thrombectomy performed until good backbleeding. Then it was advanced to arterial portion until the anterior plug was removed and brisk forward bleeding was seen. Graft was clamped, sutures were completed after heparinized saline irrigation. Good thrill was at the AV graft and palpable radial pulse. At this point incision was irrigated with saline and closed in 2 layers with Vicryl and Monocryl. Dermabond was applied. All counts were correct. Patient tolerated procedure well and was transferred back in stable condition..
--- NOTE | 2018-09-21 13:02 | Short Stay Summary ---
Short Stay Documentation Date of service: 09/21/18 - History H&P: obtained from office - Allergies and Medications Current Medications: Allergies metformin Allergy (Verified 09/20/18 14:38) Hives metoclopramide HCl [From Reglan] Allergy (Verified 09/20/18 14:38) Hives prochlorperazine [From Compazine] Allergy (Verified 09/20/18 14:38) Hives prochlorperazine edisylate [From Compazine] Allergy (Verified 09/20/18 14:38) Hives prochlorperazine maleate [From Compazine] Allergy (Verified 09/20/18 14:38) Hives haloperidol [From Haldol] Adverse Reaction (Verified 09/20/18 14:38) Unknown PT STATES HER TEETH CHATTERED AND HER "EYES DRIFTED OFF" shellfish Allergy (Uncoded 09/20/18 14:38) Swelling Home Medications Medication Instructions Recorded Confirmed Last Taken Type Apixaban [Eliquis] 2.5 mg PO Q12HR #60 tablet 08/04/18 08/27/18 09/14/18 Rx Aspirin [Aspirin BABY CHEW TAB] 81 mg PO QDAY #30 tab.chew 08/04/18 08/27/18 09/19/18 Rx AtorvaSTATin [Lipitor] 40 mg PO QHS #30 tablet 08/04/18 08/27/18 09/19/18 Rx Labetalol [Normodyne TAB] 300 mg PO TID #90 tablet 08/04/18 08/27/18 09/17/18 Rx Pantoprazole [Protonix TAB] 40 mg PO BID #60 tablet 08/04/18 08/27/18 09/17/18 Rx amLODIPine [Norvasc] 10 mg PO DAILY #30 tablet 08/04/18 08/27/18 09/19/18 Rx cloNIDine [Catapres] 0.2 mg PO TID #90 tablet 08/04/18 08/27/18 09/19/18 Rx hydrALAZINE [Apresoline TAB] 50 mg PO Q8HR #90 tablet 08/04/18 08/27/18 09/19/18 Rx Ondansetron [Zofran ODT TAB] 4 mg PO Q8HR #20 tab.rapdis 08/07/18 08/27/18 09/17/18 Rx Promethazine [Phenergan SUPPOS] 25 mg AL Q6HR PRN #10 supp.rect 08/08/18 08/27/18 09/16/18 Rx Promethazine [Phenergan SUPPOS] 25 mg AL Q6HR PRN #30 supp.rect 08/23/18 08/27/18 09/16/18 Rx HYDROcodone/APAP 5-325 [[place] 1 - 2 each PO Q6HR PRN 12 Days #14 09/08/18 09/12/18 Rx 5-325 mg TAB] tablet traMADol [Ultram 50 MG tab] 50 mg PO Q6H PRN #20 tablet 09/08/18 09/17/18 Rx Active Medications Famotidine (Pepcid) 20 mg IV PREOP NR Stop: 09/21/18 23:59 Last Admin: 09/21/18 10:00 Dose: 20 mg Documented by: Cefazolin Sodium (Ancef/Sterile Water 2 Gm/20 Ml) 2 gm in 20 mls @ 80 mls/hr IV PREOP NR; Protocol Stop: 09/21/18 23:59 Sodium Chloride (Nacl 0.9% 1000 Ml) 1,000 mls @ 42 mls/hr IV DIRECT TRUDI Last Admin: 09/21/18 09:25 Dose: 42 mls/hr Documented by: Midazolam HCl (Versed) 2 mg IV PREOP NR Stop: 09/21/18 23:59 Last Admin: 09/21/18 10:05 Dose: 2 mg Documented by: - Brief post op/procedure progress note Date of procedure: 09/21/18 Pre-op diagnosis: left AV graft malfunction Post-op diagnosis: same Procedure: AV graft revision with open thrombectomy. Anesthesia: GETA Findings: good thrill at the AV graft and palpable radial pulse. Surgeon: DOLORES LEO Estimated blood loss: other (less than 50cc) Pathology: none Condition: stable - Disposition Condition at discharge: Good Disposition: - TO HOME OR SELFCARE Short Stay Discharge Plan Diet: renal Wound: open to air Follow up with: GUTIERREZ CORBETT MD [Primary Care Provider] - 7 Days DOLORES LEO DO [Staff Physician] - 14 Days Prescriptions: HYDROcodone/APAP 5-325 [[place] 5/325] 1 each PO Q6HR PRN #10 tablet PRN Reason: Pain
[2018-09-21] MEDS ORDERED: SUBLIMAZE IV PRN (13:08)
[2018-09-21] MEDS ORDERED: NARCAN 0.4 MG/1 ML IV PRN (13:08)
[2018-09-21] MEDS ORDERED: ZOFRAN IV PRN (13:08)
[2018-09-21] MEDS: DILAUDID IV PRN ×2 (13:16→13:38)
[2018-09-21] MEDS ORDERED: APRESOLINE IV SCH (13:20)
[2018-09-21] MEDS ORDERED: FLUSH HEPARIN IV ONE (14:30)
[2018-09-23 11:45] VITALS: BP 117/65
== END 2018-09-21 14:55 | disposition home or self-care (01) ==
LOC: OR 08:34
PROVIDERS: ATTEND Surgery Vascular Surgery
DX: T82.868A Thrombosis due to vascular prosthetic devices, implants and grafts, initial encounter (principal); I12.0 Hypertensive chronic kidney disease with stage 5 chronic kidney disease or end stage renal disease; E11.22 Type 2 diabetes mellitus with diabetic chronic kidney disease; N18.6 End stage renal disease; E11.621 Type 2 diabetes mellitus with foot ulcer; E78.5 Hyperlipidemia, unspecified; E78.00 Pure hypercholesterolemia, unspecified; E66.9 Obesity, unspecified; Z68.41 Body mass index [BMI] 40.0-44.9, adult; Z88.8 Allergy status to other drugs, medicaments and biological substances; Z91.013 Allergy to seafood; Z79.899 Other long term (current) drug therapy; Z79.82 Long term (current) use of aspirin; Z79.01 Long term (current) use of anticoagulants; Z90.49 Acquired absence of other specified parts of digestive tract; Z99.2 Dependence on renal dialysis; Z82.61 Family history of arthritis; Z86.73 Personal history of transient ischemic attack (TIA), and cerebral infarction without residual deficits; Z98.890 Other specified postprocedural states; Z82.49 Family history of ischemic heart disease and other diseases of the circulatory system; Y83.2 Surgical operation with anastomosis, bypass or graft as the cause of abnormal reaction of the patient, or of later complication, without mention of misadventure at the time of the procedure; Y92.89 Other specified places as the place of occurrence of the external cause
CPT/HCPCS: 36415; 36833; 80048; 82962; 85025; C1757; J0330; J0360; J0690; J1170; J1642; J1644; J2250; J2704; J3010; J7030; J7040

== ENCOUNTER 2018-10-10 11:47 | Emergency (ER) | payer MEDICAID, MEDICARE ==
[2018-10-10 12:03] VITALS: BP 154/63
--- NOTE | 2018-10-10 12:08 | Emergency Department Report ---
ED General Adult HPI - General Chief complaint: Nausea/Vomiting/Diarrhea Stated complaint: N/V Time Seen by Provider: 10/10/18 12:05 Source: EMS Mode of arrival: Ambulatory Limitations: No Limitations - History of Present Illness Initial comments: 37-year-old female with a history of end-stage renal disease, diabetes, and hypertension presents with the complaint of vomiting for the past 2 days. Patient also complains of abdominal pain which is in her left upper quadrant. Patient states she did complete dialysis yesterday and completed a full session. Patient denies any hematemesis or any hematochezia. Patient denies any falls or fever. Patient denies any chest pain or shortness of breath. Patient has taken no meds to alleviate her symptoms. Severity scale (0 -10): 7 - Related Data Previous Rx's Medication Instructions Recorded Last Taken Type Apixaban [Eliquis] 2.5 mg PO Q12HR #60 tablet 08/04/18 09/14/18 Rx Aspirin [Aspirin BABY CHEW TAB] 81 mg PO QDAY #30 tab.chew 08/04/18 09/19/18 Rx AtorvaSTATin [Lipitor] 40 mg PO QHS #30 tablet 08/04/18 09/19/18 Rx Labetalol [Normodyne TAB] 300 mg PO TID #90 tablet 08/04/18 09/17/18 Rx Pantoprazole [Protonix TAB] 40 mg PO BID #60 tablet 08/04/18 09/17/18 Rx amLODIPine [Norvasc] 10 mg PO DAILY #30 tablet 08/04/18 09/19/18 Rx cloNIDine [Catapres] 0.2 mg PO TID #90 tablet 08/04/18 09/19/18 Rx hydrALAZINE [Apresoline TAB] 50 mg PO Q8HR #90 tablet 08/04/18 09/19/18 Rx Ondansetron [Zofran ODT TAB] 4 mg PO Q8HR #20 tab.rapdis 08/07/18 09/17/18 Rx Promethazine [Phenergan SUPPOS] 25 mg AL Q6HR PRN #10 supp.rect 08/08/18 09/16/18 Rx Promethazine [Phenergan SUPPOS] 25 mg AL Q6HR PRN #30 supp.rect 08/23/18 09/16/18 Rx HYDROcodone/APAP 5-325 [[place] 1 - 2 each PO Q6HR PRN 12 Days #14 09/08/18 Rx 5-325 mg TAB] tablet traMADol [Ultram 50 MG tab] 50 mg PO Q6H PRN #20 tablet 09/08/18 09/17/18 Rx HYDROcodone/APAP 5-325 [[place] 1 each PO Q6HR PRN #10 tablet 09/21/18 Unknown Rx 5/325] Allergies Allergy/AdvReac Type Severity Reaction Status Date / Time metformin Allergy Hives Verified 09/20/18 14:38 metoclopramide HCl Allergy Hives Verified 09/20/18 14:38 [From Reglan] prochlorperazine Allergy Hives Verified 09/20/18 14:38 [From Compazine] prochlorperazine edisylate Allergy Hives Verified 09/20/18 14:38 [From Compazine] prochlorperazine maleate Allergy Hives Verified 09/20/18 14:38 [From Compazine] haloperidol [From Haldol] AdvReac Unknown Verified 09/20/18 14:38 shellfish Allergy Swelling Uncoded 09/20/18 14:38 ED Review of Systems ROS: Stated complaint: N/V Other details as noted in HPI Constitutional: denies: chills, fever Eyes: denies: eye pain, eye discharge, vision change ENT: denies: ear pain, throat pain Respiratory: denies: cough, shortness of breath, wheezing Cardiovascular: denies: chest pain, palpitations Endocrine: no symptoms reported Gastrointestinal: nausea, vomiting, diarrhea Genitourinary: denies: urgency, dysuria, discharge Musculoskeletal: denies: back pain, joint swelling, arthralgia Skin: denies: rash, lesions Neurological: denies: headache, weakness, paresthesias Psychiatric: denies: anxiety, depression Hematological/Lymphatic: denies: easy bleeding, easy bruising ED Past Medical Hx - Past Medical History Previous Medical History?: Yes Hx Hypertension: Yes Hx CVA: Yes (multiple- L sided deficits, 12 CVA) Hx Heart Attack/AMI: No Hx Congestive Heart Failure: No Hx Diabetes: Yes Hx Deep Vein Thrombosis: No Hx Pulmonary Embolism: No Hx GERD: No Hx Liver Disease: No Hx Renal Disease: Yes Hx of Cancer: No Hx Sickle Cell Disease: No Hx Arthritis: No Hx Headaches / Migraines: No Hx Seizures: No Hx Kidney Stones: No Hx Psychiatric Treatment: No Hx Asthma: No Hx COPD: No Hx Tuberculosis: No Hx Dementia: No Hx HIV: No Additional medical history: anemia - Surgical History Past Surgical History?: Yes Hx Coronary Stent: No Hx Open Heart Surgery: No Hx Pacemaker: No Hx Internal Defibrillator: No Hx Cholecystectomy: Yes Hx Appendectomy: No Hx Breast Surgery: No Additional Surgical History: catheter placement for Hemo),bilayeral eye sugery(cataract), av fistula, gastric pacemaker for gastroparesis - Social History Smoking Status: Never Smoker Substance Use Type: None - Medications Home Medications: Home Medications Medication Instructions Recorded Confirmed Last Taken Type Apixaban [Eliquis] 2.5 mg PO Q12HR #60 tablet 08/04/18 08/27/18 09/14/18 Rx Aspirin [Aspirin BABY CHEW TAB] 81 mg PO QDAY #30 tab.chew 08/04/18 08/27/18 09/19/18 Rx AtorvaSTATin [Lipitor] 40 mg PO QHS #30 tablet 08/04/18 08/27/18 09/19/18 Rx Labetalol [Normodyne TAB] 300 mg PO TID #90 tablet 08/04/18 08/27/18 09/17/18 Rx Pantoprazole [Protonix TAB] 40 mg PO BID #60 tablet 08/04/18 08/27/18 09/17/18 Rx amLODIPine [Norvasc] 10 mg PO DAILY #30 tablet 08/04/18 08/27/18 09/19/18 Rx cloNIDine [Catapres] 0.2 mg PO TID #90 tablet 08/04/18 08/27/18 09/19/18 Rx hydrALAZINE [Apresoline TAB] 50 mg PO Q8HR #90 tablet 08/04/18 08/27/18 09/19/18 Rx Ondansetron [Zofran ODT TAB] 4 mg PO Q8HR #20 tab.rapdis 08/07/18 08/27/18 09/17/18 Rx Promethazine [Phenergan SUPPOS] 25 mg AL Q6HR PRN #10 supp.rect 08/08/18 08/27/18 09/16/18 Rx Promethazine [Phenergan SUPPOS] 25 mg AL Q6HR PRN #30 supp.rect 08/23/18 08/27/18 09/16/18 Rx HYDROcodone/APAP 5-325 [[place] 1 - 2 each PO Q6HR PRN 12 Days #14 09/08/18 Rx 5-325 mg TAB] tablet traMADol [Ultram 50 MG tab] 50 mg PO Q6H PRN #20 tablet 09/08/18 09/17/18 Rx HYDROcodone/APAP 5-325 [[place] 1 each PO Q6HR PRN #10 tablet 09/21/18 Unknown Rx 5/325] ED Physical Exam - General Limitations: No Limitations General appearance: alert, other (uncomfortable; dry heaving) - Head Head exam: Present: atraumatic, normocephalic - Eye Eye exam: Present: normal appearance - ENT ENT exam: Present: mucous membranes dry - Neck Neck exam: Present: normal inspection - Respiratory Respiratory exam: Present: normal lung sounds bilaterally. Absent: respiratory distress - Cardiovascular Cardiovascular Exam: Present: regular rate, normal rhythm. Absent: systolic murmur, diastolic murmur, rubs, gallop - GI/Abdominal GI/Abdominal exam: Present: soft, tenderness (noted in left upper quadrant), normal bowel sounds. Absent: guarding, rebound - Extremities Exam Extremities exam: Present: normal inspection - Back Exam Back exam: Present: normal inspection - Neurological Exam Neurological exam: Present: alert, oriented X3. Absent: motor sensory deficit - Psychiatric Psychiatric exam: Present: normal affect, normal mood - Skin Skin exam: Present: warm, dry, intact, normal color. Absent: rash ED Course Vital Signs 10/10/18 10/10/18 11:56 12:00 Temperature 99.3 F Pulse Rate 94 H Respiratory 15 15 Rate Blood Pressure 154/63 Blood Pressure 154/63 [Right] O2 Sat by Pulse 99 99 Oximetry ED Medical Decision Making - Lab Data Result diagrams: 10/10/18 12:49 10/10/18 12:49 - Medical Decision Making Patient improved status receiving 2 doses of IV morphine as well as antiemetic therapy while in the emergency department. Patient to be discharged. Patient is currently on antibiotic therapy that being Zofran. Patient to continue with dialysis tomorrow. - Differential Diagnosis Intra Abdominal Process; Dehydration; electrolyte abnormality; Anemia Critical care attestation.: If time is entered above; I have spent that time in minutes in the direct care of this critically ill patient, excluding procedure time. ED Disposition Clinical Impression: End stage renal disease on dialysis, Hypertensive chronic kidney disease with stage 5 chronic kidney disease or end stage renal disease, Abdominal pain, Vomiting Disposition: - TO HOME OR SELFCARE Is pt being admited?: No Condition: Stable Instructions: Abdominal Pain (ED) Referrals: PRIMARY CARE, [Referring] - 3-5 Days Time of Disposition: 17:34 Print Language: MONTSERRATIAN
[2018-10-10] MEDS ORDERED: BENADRYL IV ONE ×2 (12:19→18:20)
[2018-10-10] MEDS ORDERED: ZOFRAN IV ONE ×2 (12:19→18:20)
[2018-10-10] MEDS ORDERED: MORPHINE IV ONE (12:20)
[2018-10-10 13:14] LABS: Basophils # (Auto) 0.1 K/mm3 (0.0-0.1); Basophils % (Auto) 0.9 % (0.0-1.8); Eosinophils % (Auto) 0.3 % (0.0-4.3); Hematocrit 34.5 % (30.3-42.9); Hemoglobin 11.5 gm/dl (10.1-14.3); Lymphocytes % (Auto) 9.9 % (13.4-35.0); Mean Corpuscular HGB Conc 33 % (30-34); Mean Corpuscular Volume 93 fl (79-97); Monocytes # (Auto) 0.7 K/mm3 (0.0-0.8); Monocytes % (Auto) 6.5 % (0.0-7.3); Platelet Count 256 K/mm3 (140-440); Red Blood Count 3.72 M/mm3 (3.65-5.03); Red Cell Distribution Width 17.5 % (13.2-15.2)
[2018-10-10 13:39] LABS: Albumin 3.7 g/dL (3.9-5); BUN/Creatinine Ratio 5; Blood Urea Nitrogen 28 mg/dL (7-17); Calcium 8.8 mg/dL (8.4-10.2); Hemolysis Index 25
[2018-10-10 13:44] LABS: Alanine Aminotransferase < 5 units/L (7-56)
--- NOTE | 2018-10-10 16:42 | Cat Scan Report ---
FINAL REPORT PROCEDURE: CT abdomen and pelvis without contrast. TECHNIQUE: Computerized axial tomography of the abdomen and pelvis was performed without intravenous contrast. This study is performed without intravascular contrast material and its sensitivity for ab dominal and pelvic pathology, including neoplasms, inflammation, abscess, free fluid, thrombosis, art erial dissection and infarction, is reduced compared with a contrast enhanced study. HISTORY: Abdominal pain. COMPARISON: No prior studies are available for comparison. FINDINGS: The lung bases are clear. There are no pleural effusions. The heart size is normal. The liver, pancre as and spleen are grossly normal. Cholecystectomy clips are present. There is no biliary dilatation. The adrenal glands are not enlarged. Both kidneys appear normal in size and configuration. The abdomi nal aorta has a normal caliber. There is no retroperitoneal adenopathy. There is a left common femora l vein catheter that extends into the right atrium. The unopacified gastrointestinal tract is unremar kable. A normal appendix is visible. The bladder, uterus and adnexal regions appear normal. The regio nal skeleton appears intact. There is an infusion device in the subcutaneous fat of the left anterior abdominal wall. A catheter appears to possibly enter the stomach. IMPRESSION: No evidence of acute disease in the abdomen or pelvis.
[2018-10-10] MEDS ORDERED: BENADRYL PO ONE (17:08)
[2018-10-10] MEDS ORDERED: PERCOCET 5/325 PO ONE (17:08)
[2018-10-10] MEDS ORDERED: DILAUDID IV ONE (18:20)
== END 2018-10-10 19:03 | disposition home or self-care (01) ==
LOC: ED 11:47
DX: R11.10 Vomiting, unspecified (principal); R10.12 Left upper quadrant pain; E11.22 Type 2 diabetes mellitus with diabetic chronic kidney disease; I12.0 Hypertensive chronic kidney disease with stage 5 chronic kidney disease or end stage renal disease; N18.5 Chronic kidney disease, stage 5; Z99.2 Dependence on renal dialysis
CPT/HCPCS: 36415; 74176; 80053; 83690; 85025; 96374; 96375; 96376; 99284; J1170; J1200; J2270; J2405

== ENCOUNTER 2018-10-11 15:38 | Inpatient (IN) | payer MEDICARE ==
[2018-10-11] MEDS ORDERED: ZOFRAN IV ONE ×2 (16:36→21:47)
[2018-10-11] MEDS ORDERED: DILAUDID IV ONE (16:36)
[2018-10-11] MEDS ORDERED: BENADRYL IV ONE ×2 (16:38→21:49)
--- NOTE | 2018-10-11 16:38 | Emergency Department Report ---
ED General Adult HPI - General Chief complaint: Abdominal Pain Stated complaint: N/V Time Seen by Provider: 10/11/18 16:21 Source: EMS Mode of arrival: Ambulatory Limitations: No Limitations - History of Present Illness Initial comments: 37-year-old female with a history of end-stage renal disease presents with the complaint of nausea and vomiting. Patient complains of abdominal pain for the same duration 3 days as well. Patient states that she had improved after being discharged from the ER yesterday but had recurrence of vomiting as well as abdom inal pain and thus presented here. Patient states she did not have dialysis today as she went to see her vascular surgeon regarding her dialysis access. Patient denies chest pain or shortness of breath at current time. Patient does not acknowledge that she had a fever while at home either. Severity scale (0 -10): 0 - Related Data Home Medications Medication Instructions Recorded Confirmed Last Taken Amitriptyline [Elavil] 10 mg PO BID 10/11/18 10/11/18 Unknown Ondansetron [Zofran TAB] 4 mg PO Q6H 10/11/18 10/11/18 Unknown hydrALAZINE [Apresoline TAB] 50 mg PO BID 10/11/18 10/11/18 Unknown Previous Rx's Medication Instructions Recorded Last Taken Type Apixaban [Eliquis] 2.5 mg PO Q12HR #60 tablet 08/04/18 09/14/18 Rx Labetalol [Normodyne TAB] 300 mg PO TID #90 tablet 08/04/18 09/17/18 Rx Allergies Allergy/AdvReac Type Severity Reaction Status Date / Time metformin Allergy Hives Verified 09/20/18 14:38 metoclopramide HCl Allergy Hives Verified 09/20/18 14:38 [From Reglan] prochlorperazine Allergy Hives Verified 09/20/18 14:38 [From Compazine] prochlorperazine edisylate Allergy Hives Verified 09/20/18 14:38 [From Compazine] prochlorperazine maleate Allergy Hives Verified 09/20/18 14:38 [From Compazine] haloperidol [From Haldol] AdvReac Unknown Verified 09/20/18 14:38 shellfish Allergy Swelling Uncoded 09/20/18 14:38 ED Review of Systems ROS: Stated complaint: N/V Other details as noted in HPI Constitutional: denies: chills, fever Eyes: denies: eye pain, eye discharge, vision change ENT: denies: ear pain, throat pain Respiratory: denies: cough, shortness of breath, wheezing Cardiovascular: denies: chest pain, palpitations Endocrine: no symptoms reported Gastrointestinal: abdominal pain, vomiting Genitourinary: denies: urgency, dysuria, discharge Musculoskeletal: denies: back pain, joint swelling, arthralgia Skin: denies: rash, lesions Neurological: denies: headache, weakness, paresthesias Psychiatric: denies: anxiety, depression Hematological/Lymphatic: denies: easy bleeding, easy bruising ED Past Medical Hx - Past Medical History Hx Hypertension: Yes Hx CVA: Yes (multiple- L sided deficits, 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) Hx Heart Attack/AMI: No Hx Congestive Heart Failure: No Hx Diabetes: Yes Hx Deep Vein Thrombosis: No Hx Pulmonary Embolism: No Hx GERD: No Hx Liver Disease: No Hx Renal Disease: Yes Hx Sickle Cell Disease: No Hx Arthritis: No Hx Headaches / Migraines: No Hx Seizures: No Hx Kidney Stones: No Hx Psychiatric Treatment: No Hx Asthma: No Hx COPD: No Hx Tuberculosis: No Hx Dementia: No Hx HIV: No Additional medical history: anemia - Surgical History Hx Coronary Stent: No Hx Open Heart Surgery: No Hx Pacemaker: No Hx Internal Defibrillator: No Hx Cholecystectomy: Yes Hx Appendectomy: No Hx Breast Surgery: No Additional Surgical History: catheter placement for Hemo),bilayeral eye sugery(cataract), av fistula, gastric pacemaker for gastroparesis - Social History Smoking Status: Never Smoker Substance Use Type: None - Medications Home Medications: Home Medications Medication Instructions Recorded Confirmed Last Taken Type Apixaban [Eliquis] 2.5 mg PO Q12HR #60 tablet 08/04/18 10/11/18 09/14/18 Rx Labetalol [Normodyne TAB] 300 mg PO TID #90 tablet 08/04/18 10/11/18 09/17/18 Rx Amitriptyline [Elavil] 10 mg PO BID 10/11/18 10/11/18 Unknown History Ondansetron [Zofran TAB] 4 mg PO Q6H 10/11/18 10/11/18 Unknown History hydrALAZINE [Apresoline TAB] 50 mg PO BID 10/11/18 10/11/18 Unknown History ED Physical Exam - General Limitations: No Limitations General appearance: alert, other (uncomfortable; dehydrated) - Head Head exam: Present: atraumatic, normocephalic - Eye Eye exam: Present: normal appearance - ENT ENT exam: Present: mucous membranes dry - Neck Neck exam: Present: normal inspection - Respiratory Respiratory exam: Present: normal lung sounds bilaterally. Absent: respiratory distress - Cardiovascular Cardiovascular Exam: Present: regular rate, normal rhythm. Absent: systolic murmur, diastolic murmur, rubs, gallop - GI/Abdominal GI/Abdominal exam: Present: soft, tenderness (mild diffuse tenderness present ), normal bowel sounds. Absent: guarding, rebound - Extremities Exam Extremities exam: Present: normal inspection - Back Exam Back exam: Present: normal inspection - Neurological Exam Neurological exam: Present: alert, oriented X3, CN II-XII intact. Absent: motor sensory deficit - Psychiatric Psychiatric exam: Present: normal affect, normal mood - Skin Skin exam: Present: warm, dry, intact, normal color. Absent: rash ED Course Vital Signs 10/11/18 10/11/18 16:06 17:49 Temperature 100.3 F H 103.0 F H Pulse Rate 130 H 119 H Respiratory 16 18 Rate Blood Pressure 206/90 156/79 [Right] O2 Sat by Pulse 95 95 Oximetry ED Medical Decision Making - Lab Data Result diagrams: 10/11/18 17:00 10/11/18 17:00 - Medical Decision Making Patient given Dilaudid 1 mg IV, Zofran, and Benadryl therapy. Patient noted to have a fever. Patient given ceftriaxone therapy. Patient does have the placement of a port in her right chest. Patient to be admitted to the hospitalist service for continued management and treatment. Patient has a CXR that shows no acute pathology. Patient unable to make urine. patient has stable WBC count as well. Patient has a port which shows no surrounding erythema or exudate. patient prophylactically treated however with Ceftriaxone therapy while in the ER. - Differential Diagnosis pancreatitis; dehydration; O abnormalities; anemia Critical care attestation.: If time is entered above; I have spent that time in minutes in the direct care o f this critically ill patient, excluding procedure time. ED Disposition Clinical Impression: Abdominal pain, Fever, Gastroparesis, End stage renal disease on dialysis Disposition: OP ADMIT IP TO THIS HOSP Is pt being admited?: Yes Does the pt Need Aspirin: No Condition: Stable Instructions: Abdominal Pain (ED) Referrals: PRIMARY CARE, [Primary Care Provider] - 3-5 Days Time of Disposition: 22:09
[2018-10-11 17:34] LABS: Hematocrit 31.6 % (30.3-42.9); Hemoglobin 10.2 gm/dl (10.1-14.3); Mean Corpuscular HGB Conc 32 % (30-34); Mean Corpuscular Volume 96 fl (79-97); Platelet Count 244 K/mm3 (140-440); Red Blood Count 3.29 M/mm3 (3.65-5.03)
[2018-10-11 17:53] LABS: Alanine Aminotransferase 5 units/L (7-56); Albumin 3.4 g/dL (3.9-5); BUN/Creatinine Ratio 6; Blood Urea Nitrogen 33 mg/dL (7-17); Calcium 8.2 mg/dL (8.4-10.2); Hemolysis Index 23
[2018-10-11] MEDS ORDERED: TYLENOL PO ONE (17:56)
[2018-10-11 18:00] LABS: Bilirubin,Direct < 0.2 mg/dL (0-0.2)
--- NOTE | 2018-10-11 18:03 | XRay Report ---
FINAL REPORT EXAM: XR CHEST 1V AP HISTORY: Abdominal Pain TECHNIQUE: upright single view chest PRIORS: Comparison is dated August 25, 2018 FINDINGS: Cardiac and mediastinal contours are unremarkable. No focal pulmonary infiltrate is identified. No pleural fluid collection seen. Pulmonary vasculature is unremarkable. There is a right chest port ca theter tip at the SVC. IMPRESSION: Negative single-view chest
[2018-10-11] MEDS ORDERED: XYLOCAINE 1% MPF 5 mL INFILTRATI ONE (18:12)
[2018-10-11] MEDS ORDERED: ROCEPHIN 1,000 MG in NACL 0.9% 50 ML IV STA (18:12)
[2018-10-11 18:15] LABS: Basophils % (Manual) 0 % (0.0-1.8); RBC Morphology Normal; Total Cells Counted 100
[2018-10-11 18:16] LABS: Platelet Estimate Consistent w Auto
[2018-10-11] MEDS ORDERED: ROCEPHIN/NS 1 GM/50 ML 1 GM/50 ML BAG IV SCH (19:00)
[2018-10-11] MEDS ORDERED: MORPHINE IV ONE (21:48)
[2018-10-11] MEDS ORDERED: VANCOMYCIN/NS 1 GM/250 ML 1 GM/250 ML BAG IV ONE (22:01)
[2018-10-11] MEDS ORDERED: SODIUM CHLORIDE FLUSH SYRINGE 10 ML IV PRN (22:22)
[2018-10-11] MEDS ORDERED: D50W (25GM) Syringe IV PRN (22:22)
[2018-10-12] MEDS: HumaLOG SUB-Q SCH ×3 (01:13→12:00)
[2018-10-12] MEDS ORDERED: VANCOMYCIN 2,000 MG in NACL 0.9% 500 ML 500 ML IV ONE (02:00)
--- NOTE | 2018-10-12 02:03 | History and Physical Report ---
History of Present Illness Date of examination: 10/11/18 Date of admission: 10/11/18 22:22 History of present illness: 37-year-old woman with a history with hypertension, diabetes complicated by gastroparesis, status post gastric pacemaker, end-stage renal disease on dialysis, CVA, see emergency room with complaints of nausea vomiting 3 days. Also complaining of left upper quadrant pain 3 days, sharp, only present with nausea vomiting. She was seen in the emergency room yesterday and a CT of the abdomen and pelvis was done which was negative. She continues to have vomiting so she returned to the emergency room for further evaluation. She saw the doctor for evaluation of her gastric pacemaker in September 12 in [place] and everything was okay, settings were increased. Patient missed dialysis today Review of systems Constitutional: no weight loss, chills, fever Ears, eyes, nose, mouth and throat: no nasal congestion, no nasal discharge, no sinus pressure, no vision change, no red eye. Neck: No neck pain or rigidity. Cardiovascular: no palpitations, chest pain Respiratory: no cough, shortness of breath Gastrointestinal: no hematochezia, abdominal pain Genitourinary : no frequency , no hematuria Musculoskeletal: no joint swelling or muscle ache Integumentary: no rash, no pruritis Neurological: no parathesias, no focal weakness Endocrine: no cold or heat intolerance, no polyuria or polydipsia Hematologic/Lymphatic: no easy bruising, no easy bleeding, no gland swelling Allergic/Immunologic: no urticaria, no angioedema. PAST MEDICAL HISTORY:hypertension, diabetes complicated by gastroparesis, status post gastric pacemaker, end-stage renal disease PAST SURGICAL HISTORY: Cholecystectomy, gastric pacemaker, AV fistula SOCIAL HISTORY: Denies alcohol, drugs, tobacco FAMILY HISTORY: Hypertension Medications and Allergies Allergies Allergy/AdvReac Type Severity Reaction Status Date / Time metformin Allergy Hives Verified 09/20/18 14:38 metoclopramide HCl Allergy Hives Verified 09/20/18 14:38 [From Reglan] prochlorperazine Allergy Hives Verified 09/20/18 14:38 [From Compazine] prochlorperazine edisylate Allergy Hives Verified 09/20/18 14:38 [From Compazine] prochlorperazine maleate Allergy Hives Verified 09/20/18 14:38 [From Compazine] haloperidol [From Haldol] AdvReac Unknown Verified 09/20/18 14:38 shellfish Allergy Swelling Uncoded 09/20/18 14:38 Home Medications Medication Instructions Recorded Confirmed Last Taken Type Apixaban [Eliquis] 2.5 mg PO Q12HR #60 tablet 08/04/18 10/11/18 09/14/18 Rx Labetalol [Normodyne TAB] 300 mg PO TID #90 tablet 08/04/18 10/11/18 09/17/18 Rx Amitriptyline [Elavil] 10 mg PO BID 10/11/18 10/11/18 Unknown History Ondansetron [Zofran TAB] 4 mg PO Q6H 10/11/18 10/11/18 Unknown History hydrALAZINE [Apresoline TAB] 50 mg PO BID 10/11/18 10/11/18 Unknown History Active Meds: Active Medications Acetaminophen (Tylenol) 650 mg PO Q4H PRN PRN Reason: Pain MILD(1-3)/Fever >100.5/CHAVES Dextrose (D50w (25gm) Syringe) 50 ml IV PRN PRN PRN Reason: Hypoglycemia Diphenhydramine HCl (Benadryl) 25 mg IV Q6H PRN PRN Reason: Itching Enoxaparin Sodium (Lovenox) 30 mg SUB-Q QDAY TRUDI Piperacillin Sod/Tazobactam Sod (Zosyn/Ns 2.25 Gm/50ml) 2.25 gm in 50 mls @ 100 mls/hr IV Q8H TRUDI; Protocol Last Admin: 10/12/18 00:00 Dose: 100 mls/hr Documented by: Vancomycin HCl 2,000 mg/ (Sodium Chloride) 540 mls @ 250 mls/hr IV ONCE ONE Stop: 10/12/18 04:09 Insulin Human Lispro (Humalog) 0 unit SUB-Q Q6HR TRUDI; Protocol Last Admin: 10/12/18 01:13 Dose: Not Given Documented by: Morphine Sulfate (Morphine) 2 mg IV Q4H PRN PRN Reason: Pain, Moderate (4-6) Ondansetron HCl (Zofran) 4 mg IV Q4H PRN PRN Reason: Nausea And Vomiting Sodium Chloride (Sodium Chloride Flush Syringe 10 Ml) 10 ml IV BID TRUDI Sodium Chloride (Sodium Chloride Flush Syringe 10 Ml) 10 ml IV PRN PRN PRN Reason: LINE FLUSH Exam - Physical Exam Narrative exam: General Apperance: The patient lying in bed, breathing comfortable HEENT: Normocephalic, atraumatic. Pupils equally round and reactive to light, EOMI, no sclericterus or JVD or thyromegaly or nodule. , no carotid bruit, mucous membranes moist, no exudate or erythema Heart: S1-S2, regular is rhythm Lungs: Clear to auscultation bilaterally, breathing comfortable Abdomen: Positive bowel sounds, soft, nontender, nondistended, no organomegaly Extremities: No edema cyanosis clubbing Skin: no rash, nodule, warm and dry Neuro: cranial nerves 2-12 intact, speech is fluent, motor/sensory intact - Constitutional Vitals: Temp Pulse Resp BP Pulse Ox 103.0 F H 119 H 18 156/79 95 10/11/18 17:49 10/11/18 17:49 10/11/18 17:49 10/11/18 17:49 10/11/18 17:49 Results - Labs CBC & Chem 7: 10/11/18 17:00 10/11/18 17:00 Labs: Abnormal lab results 10/11/18 10/11/18 10/11/18 Range/Units 17:00 17:00 18:21 RBC 3.29 L (3.65-5.03) M/mm3 RDW 18.0 H (13.2-15.2) % Seg Neuts % (Manual) 95.0 H (40.0-70.0) % Lymphocytes % (Manual) 2.0 L (13.4-35.0) % Lymphocytes # (Manual) 0.1 L (1.2-5.4) K/mm3 Potassium 3.0 L D (3.6-5.0) mmol/L Chloride 97.3 L (98-107) mmol/L BUN 33 H (7-17) mg/dL Creatinine 6.0 H (0.7-1.2) mg/dL Lactic Acid 0.60 L (0.7-2.0) mmol/L Calcium 8.2 L (8.4-10.2) mg/dL ALT 5 L (7-56) units/L Albumin 3.4 L (3.9-5) g/dL Lipase 7 L (13-60) units/L - Imaging and Cardiology EKG: report reviewed CT scan - abdomen: report reviewed CT scan - pelvis: report reviewed Assessment and Plan Assessment SIRS Intractable nausea and vomiting was likely secondary to gastroparesis Hypertension, diabetes complicated by gastroparesis end-stage renal disease History of CVA Plan Start antibiotics, follow cultures sTART anti-emetics, IV morphine Consult renal for dialysis Check fingersticks initiate insulin sliding scale DVT prophylaxis
[2018-10-12] MEDS ORDERED: K-DUR PO ONE ×2 (02:17→02:25)
[2018-10-12] MEDS: KCL 10MEQ/100ML 10 MEQ/100 ML BAG IV SCH ×2 (02:34→02:35)
[2018-10-12] MEDS: BENADRYL IV PRN (04:22)
[2018-10-12] MEDS: MORPHINE IV PRN ×3 (04:22→14:11)
[2018-10-12 07:07] LABS: Basophils % (Auto) 0.4 % (0.0-1.8); Eosinophils % (Auto) 0.4 % (0.0-4.3); Hematocrit 27.2 % (30.3-42.9); Hemoglobin 8.8 gm/dl (10.1-14.3); Lymphocytes # (Auto) 1.2 K/mm3 (1.2-5.4); Lymphocytes % (Auto) 11.2 % (13.4-35.0); Mean Corpuscular HGB Conc 33 % (30-34); Mean Corpuscular Volume 95 fl (79-97); Monocytes # (Auto) 0.6 K/mm3 (0.0-0.8); Monocytes % (Auto) 5.5 % (0.0-7.3); Platelet Count 231 K/mm3 (140-440); Red Blood Count 2.87 M/mm3 (3.65-5.03); Red Cell Distribution Width 17.5 % (13.2-15.2)
[2018-10-12] MEDS: ZOFRAN IV PRN ×2 (09:37→14:11)
[2018-10-12] MEDS: ELIQUIS PO SCH ×2 (09:38→21:34)
[2018-10-12] MEDS: APRESOLINE PO SCH ×2 (09:38→21:39)
[2018-10-12] MEDS: ELAVIL PO SCH ×2 (09:38→21:33)
[2018-10-12] MEDS: NORMODYNE PO SCH ×6 (09:38→21:38)
[2018-10-12] MEDS: ZOSYN/NS 2.25 GM/50ML 2.25 GM/50 ML BAG IV SCH ×3 (10:00→18:07)
[2018-10-12] MEDS ORDERED: LOVENOX SUB-Q SCH (10:00)
--- NOTE | 2018-10-12 10:15 | Consultation ---
History of Present Illness - Reason for Consult Consult date: 10/12/18 end stage renal disease Requesting physician: ERLINDA GAONA - History of Present Illness 37-year-old woman with a history with hypertension, diabetes complicated by gastroparesis, status post gastric pacemaker, end-stage renal disease on dialysis, CVA, see emergency room with complaints of nausea vomiting 3 days. Also complaining of left upper quadrant pain 3 days, sharp, only present with nausea vomiting. She was seen in the emergency room yesterday and a CT of the abdomen and pelvis was done which was negative. She continues to have vomiting so she returned to the emergency room for further evaluation. She saw the doctor for evaluation of her gastric pacemaker in September 12 in [place] and everything was okay, settings were increased. Patient missed dialysis today Review of systems Constitutional: no weight loss, chills, fever Ears, eyes, nose, mouth and throat: no nasal congestion, no nasal discharge, no sinus pressure, no vision change, no red eye. Neck: No neck pain or rigidity. Cardiovascular: no palpitations, chest pain Respiratory: no cough, shortness of breath Gastrointestinal: no hematochezia, abdominal pain Genitourinary : no frequency , no hematuria Musculoskeletal: no joint swelling or muscle ache Integumentary: no rash, no pruritis Neurological: no parathesias, no focal weakness Endocrine: no cold or heat intolerance, no polyuria or polydipsia Hematologic/Lymphatic: no easy bruising, no easy bleeding, no gland swelling Allergic/Immunologic: no urticaria, no angioedema. PAST MEDICAL HISTORY:hypertension, diabetes complicated by gastroparesis, status post gastric pacemaker, end-stage renal disease PAST SURGICAL HISTORY: Cholecystectomy, gastric pacemaker, AV fistula SOCIAL HISTORY: Denies alcohol, drugs, tobacco FAMILY HISTORY: Hypertension Medications and Allergies Allergies Allergy/AdvReac Type Severity Reaction Status Date / Time metformin Allergy Hives Verified 09/20/18 14:38 metoclopramide HCl Allergy Hives Verified 09/20/18 14:38 [From Reglan] prochlorperazine Allergy Hives Verified 09/20/18 14:38 [From Compazine] prochlorperazine edisylate Allergy Hives Verified 09/20/18 14:38 [From Compazine] prochlorperazine maleate Allergy Hives Verified 09/20/18 14:38 [From Compazine] haloperidol [From Haldol] AdvReac Unknown Verified 09/20/18 14:38 shellfish Allergy Swelling Uncoded 09/20/18 14:38 Home Medications Medication Instructions Recorded Confirmed Last Taken Type Apixaban [Eliquis] 2.5 mg PO Q12HR #60 tablet 08/04/18 10/11/18 09/14/18 Rx Labetalol [Normodyne TAB] 300 mg PO TID #90 tablet 08/04/18 10/11/18 09/17/18 Rx Amitriptyline [Elavil] 10 mg PO BID 10/11/18 10/11/18 Unknown History Ondansetron [Zofran TAB] 4 mg PO Q6H 10/11/18 10/11/18 Unknown History hydrALAZINE [Apresoline TAB] 50 mg PO BID 10/11/18 10/11/18 Unknown History Active Meds: Active Medications Acetaminophen (Tylenol) 650 mg PO Q4H PRN PRN Reason: Pain MILD(1-3)/Fever >100.5/CHAVES Amitriptyline HCl (Elavil) 10 mg PO BID [facility] Last Admin: 10/12/18 09:38 Dose: 10 mg Documented by: Apixaban (Eliquis) 2.5 mg PO Q12HR TRUDI; Protocol Last Admin: 10/12/18 09:38 Dose: 2.5 mg Documented by: Dextrose (D50w (25gm) Syringe) 50 ml IV PRN PRN PRN Reason: Hypoglycemia Diphenhydramine HCl (Benadryl) 25 mg IV Q6H PRN PRN Reason: Itching Last Admin: 10/12/18 04:22 Dose: 25 mg Documented by: Hydralazine HCl (Apresoline) 50 mg PO BID [facility] Last Admin: 10/12/18 09:38 Dose: 50 mg Documented by: Piperacillin Sod/Tazobactam Sod (Zosyn/Ns 2.25 Gm/50ml) 2.25 gm in 50 mls @ 100 mls/hr IV Q8H TRUDI; Protocol Last Admin: 10/12/18 10:00 Dose: 100 mls/hr Documented by: Insulin Human Lispro (Humalog) 0 unit SUB-Q Q6HR TRUDI; Protocol Last Admin: 10/12/18 06:00 Dose: Not Given Documented by: Labetalol HCl (Normodyne) 100 mg PO TID [facility] Last Admin: 10/12/18 09:38 Dose: 100 mg Documented by: Labetalol HCl (Normodyne) 200 mg PO TID [facility] Last Admin: 10/12/18 09:38 Dose: 200 mg Documented by: Morphine Sulfate (Morphine) 2 mg IV Q4H PRN PRN Reason: Pain, Moderate (4-6) Last Admin: 10/12/18 09:37 Dose: 2 mg Documented by: Ondansetron HCl (Zofran) 4 mg IV Q4H PRN PRN Reason: Nausea And Vomiting Last Admin: 10/12/18 09:37 Dose: 4 mg Documented by: Sodium Chloride (Sodium Chloride Flush Syringe 10 Ml) 10 ml IV BID [facility] Sodium Chloride (Sodium Chloride Flush Syringe 10 Ml) 10 ml IV PRN PRN PRN Reason: LINE FLUSH Exam - Vital Signs Vital signs: Vital Signs Temp Pulse Resp BP Pulse Ox 100.3 F H 130 H 16 206/90 95 10/11/18 16:06 10/11/18 16:06 10/11/18 16:06 10/11/18 16:06 10/11/18 16:06 - Physical Exam Narrative exam: General Apperance: The patient lying in bed, breathing comfortable HEENT: Normocephalic, atraumatic. Pupils equally round and reactive to light, EOMI, no sclericterus or JVD or thyromegaly or nodule. , no carotid bruit, mucous membranes moist, no exudate or erythema Heart: S1-S2, regular is rhythm Lungs: Clear to auscultation bilaterally, breathing comfortable Abdomen: Positive bowel sounds, soft, nontender, nondistended, no organomegaly Extremities: No edema cyanosis clubbing Skin: no rash, nodule, warm and dry Neuro: cranial nerves 2-12 intact, speech is fluent, motor/sensory intact Results - Lab Results 10/12/18 06:00 10/12/18 06:00 Most recent lab results Calcium 8.0 mg/dL (8.4-10.2) L 10/12/18 06:00 Assessment and Plan Impression * end-stage renal disease * Nausea/emesis * Gastroparesis * Clotted AV graft * Uncontrolled hypertension * type 2 DM * Anemia secondary to ESRD Recommendations * continue hd q MWF, * strict i/os * GI to see for gastroparesis * Adjust diet and meds for ESRD state * Procrit with dialysis * Binders with meals * Avoid nephrotoxins
[2018-10-12] MEDS ORDERED: ALBURX 25% (ALBUMIN) IV PRN (10:18)
[2018-10-12] MEDS ORDERED: NACL 0.9% 100 ML IV PRN (10:18)
--- NOTE | 2018-10-12 11:28 | Event Note ---
Date: 10/12/18 Patient has clotted her left arm AVG. Initially plan to schedule for declot on Monday as an outpatient. Now admitted for vomiting. we will tentatively schedule for declot on Monday if stable.
--- NOTE | 2018-10-12 12:51 | Progress Note ---
Assessment and Plan Sepsis with bacteremia Intractable nausea and vomiting was likely secondary to gastroparesis Hypertension, stable Diabetes complicated by gastroparesis End-stage renal disease on HD History of CVA Chronic neuropathic pain Clotted/malfunctioning left arm AVG Plan cont antibiotics, follow cultures cont anti-emetics, ativan po for intractable gastropresis, minimize pain meds Consulted renal for dialysis Check fingersticks with insulin sliding scale vascular consulted for left arm AVG, planned for procedure next week DVT prophylaxis Brief history: 37-year-old woman with a history with hypertension, diabetes complicated by gastroparesis, status post gastric pacemaker, end-stage renal disease on dialysis, CVA, presented to emergency room with complaints of left upper quadrant pain, nausea vomiting 3 days. She was seen in the emergency room on 10/10/[address] of the abdomen and pelvis was done which was negative, she was discharged home. She continues to have vomiting so she returned to the emergen cy room for further evaluation. She saw the doctor for evaluation of her gastric pacemaker in September 12 in [place] and everything was okay, settings were increased. She meet SIRS criteria, admitted for N/V and possible sepsis. Physical exam: General Apperance: The patient lying in bed, breathing comfortable HEENT: Normocephalic, atraumatic. Pupils equally round and reactive to light, EOMI, no sclericterus or JVD or thyromegaly or nodule. , no carotid bruit, muc ous membranes moist, no exudate or erythema Heart: S1-S2, regular is rhythm Lungs: Clear to auscultation bilaterally, breathing comfortable Abdomen: Positive bowel sounds, soft, nontender, nondistended, no organomegaly Extremities: No edema cyanosis clubbing Skin: no rash, nodule, warm and dry Neuro: cranial nerves 2-12 intact, speech is fluent, motor/sensory intact Subjective Date of service: 10/12/18 Interval history: pt seen and examined had HD at bedside cont to c/o N/V, unable to tolerate PO Objective - Constitutional Vitals: Vital Signs - 12hr 10/12/18 10/12/18 10/12/18 03:00 03:07 07:45 Temperature 98.1 F 98.4 F Pulse Rate 82 82 Respiratory 17 18 Rate Blood Pressure 142/78 118/51 O2 Sat by Pulse 99 Oximetry 10/12/18 10/12/18 10/12/18 11:23 11:25 11:45 Temperature 98.4 F Pulse Rate 81 85 Respiratory 16 Rate Blood Pressure 108/57 125/57 O2 Sat by Pulse 99 Oximetry 10/12/18 12:00 Temperature Pulse Rate 82 Respiratory Rate Blood Pressure 113/65 O2 Sat by Pulse Oximetry - Labs CBC & Chem 7: 10/13/18 06:00 10/13/18 06:00 Labs: Abnormal lab results 10/11/18 10/11/18 10/11/18 Range/Units 17:00 17:00 18:21 RBC 3.29 L (3.65-5.03) M/mm3 Hgb (10.1-14.3) gm/dl Hct (30.3-42.9) % RDW 18.0 H (13.2-15.2) % Lymph % (Auto) (13.4-35.0) % Seg Neutrophils % (40.0-70.0) % Seg Neuts % (Manual) 95.0 H (40.0-70.0) % Lymphocytes % (Manual) 2.0 L (13.4-35.0) % Seg Neutrophils # (1.8-7.7) K/mm3 Lymphocytes # (Manual) 0.1 L (1.2-5.4) K/mm3 Potassium 3.0 L D (3.6-5.0) mmol/L Chloride 97.3 L (98-107) mmol/L BUN 33 H (7-17) mg/dL Creatinine 6.0 H (0.7-1.2) mg/dL POC Glucose (70-105) Lactic Acid 0.60 L (0.7-2.0) mmol/L Calcium 8.2 L (8.4-10.2) mg/dL ALT 5 L (7-56) units/L Albumin 3.4 L (3.9-5) g/dL Lipase 7 L (13-60) units/L 10/12/18 10/12/18 10/12/18 Range/Units 06:00 06:00 12:09 RBC 2.87 L (3.65-5.03) M/mm3 Hgb 8.8 L (10.1-14.3) gm/dl Hct 27.2 L (30.3-42.9) % RDW 17.5 H (13.2-15.2) % Lymph % (Auto) 11.2 L (13.4-35.0) % Seg Neutrophils % 82.5 H (40.0-70.0) % Seg Neuts % (Manual) (40.0-70.0) % Lymphocytes % (Manual) (13.4-35.0) % Seg Neutrophils # 8.8 H (1.8-7.7) K/mm3 Lymphocytes # (Manual) (1.2-5.4) K/mm3 Potassium 3.1 L (3.6-5.0) mmol/L Chloride 95.5 L (98-107) mmol/L BUN 36 H (7-17) mg/dL Creatinine 7.0 H (0.7-1.2) mg/dL POC Glucose 134 H (70-105) Lactic Acid (0.7-2.0) mmol/L Calcium 8.0 L (8.4-10.2) mg/dL ALT (7-56) units/L Albumin (3.9-5) g/dL Lipase (13-60) units/L
[2018-10-12] MEDS ORDERED: ATIVAN PO ONE (13:46)
[2018-10-12] MEDS: PROCRIT IV PRN (14:30)
[2018-10-12] MEDS ORDERED: COMPAZINE PO PRN (15:40)
[2018-10-12] MEDS ORDERED: ATIVAN PO PRN (15:40)
[2018-10-12] MEDS: CARAFATE PO SCH (17:46)
[2018-10-12] MEDS: PROTONIX IV SCH (17:47)
[2018-10-12] MEDS: SODIUM CHLORIDE FLUSH SYRINGE 10 ML IV SCH ×2 (18:07→21:34)
[2018-10-13] MEDS: CARAFATE PO SCH ×4 (00:38→17:02)
[2018-10-13] MEDS: ZOSYN/NS 2.25 GM/50ML 2.25 GM/50 ML BAG IV SCH (00:38)
[2018-10-13] MEDS: HumaLOG SUB-Q SCH ×4 (00:47→21:23)
[2018-10-13] MEDS: BENADRYL IV PRN ×2 (01:05→17:02)
[2018-10-13] MEDS: ZOFRAN IV PRN ×3 (01:06→21:36)
[2018-10-13 06:32] LABS: Basophils % (Auto) 0.4 % (0.0-1.8); Eosinophils % (Auto) 0.3 % (0.0-4.3); Hematocrit 27.4 % (30.3-42.9); Hemoglobin 8.8 gm/dl (10.1-14.3); Lymphocytes # (Auto) 1.4 K/mm3 (1.2-5.4); Lymphocytes % (Auto) 12.8 % (13.4-35.0); Mean Corpuscular HGB Conc 32 % (30-34); Mean Corpuscular Volume 95 fl (79-97); Monocytes # (Auto) 0.9 K/mm3 (0.0-0.8); Monocytes % (Auto) 7.7 % (0.0-7.3); Platelet Count 179 K/mm3 (140-440); Red Blood Count 2.87 M/mm3 (3.65-5.03); Red Cell Distribution Width 17.4 % (13.2-15.2)
[2018-10-13 06:50] LABS: Calcium 7.7 mg/dL (8.4-10.2)
[2018-10-13] MEDS ORDERED: K-DUR PO ONE (07:32)
[2018-10-13] MEDS: NORMODYNE PO SCH ×6 (08:52→21:24)
[2018-10-13] MEDS: ELAVIL PO SCH ×2 (09:53→21:31)
[2018-10-13] MEDS: PROTONIX IV SCH (09:54)
[2018-10-13] MEDS: SODIUM CHLORIDE FLUSH SYRINGE 10 ML IV SCH ×2 (09:54→21:32)
[2018-10-13] MEDS: ELIQUIS PO SCH ×2 (09:54→21:32)
[2018-10-13] MEDS: MAXIPIME/NS 1 GM/100 ML 1 GM/100 ML BAG IV SCH ×3 (10:05→21:30)
[2018-10-13] MEDS: APRESOLINE PO SCH ×2 (10:51→21:31)
--- NOTE | 2018-10-13 15:05 | Progress Note ---
Assessment and Plan Impression * ESRD on HD * Malfunctioning AVG * Nausea/emesis * Gastroparesis * Hypertension * Type II DM * Anemia secondary to ESRD * Secondary hyperPTH Recommendations * Continue HD MWF * Note plans for access evaluation on Monday * Adjust diet and meds for ESRD state * Epogen TIW prn with HD * Renal diet * Binders with meals Subjective Date of service: 10/13/18 Interval history: Reports nausea; denies SOB Objective - Vital Signs Vital signs: Vital Signs - 12hr 10/13/18 10/13/18 10/13/18 04:41 05:50 08:46 Temperature 98.6 F 98.3 F Pulse Rate 80 82 79 Respiratory 20 18 20 Rate Blood Pressure 83/37 105/39 94/69 Blood Pressure [Right] O2 Sat by Pulse 100 100 99 Oximetry 10/13/18 10/13/18 10/13/18 08:48 09:33 11:30 Temperature 97.5 F L Pulse Rate 78 75 Respiratory 18 Rate Blood Pressure 105/69 Blood Pressure 96/52 [Right] O2 Sat by Pulse 99 Oximetry 10/13/18 11:32 Temperature 98.1 F Pulse Rate Respiratory Rate Blood Pressure Blood Pressure [Right] O2 Sat by Pulse Oximetry - General Appearance General appearance: well-developed, well-nourished EENT: ATNC Respiratory: Present: Clear to Ascultation Cardiology: regular, S1S2 Gastrointestinal: normal, no tenderness, no distended Integumentary: no rash, warm and dry Neurologic: no focal deficit Musculoskeletal: other (KRISTYN AVG no bruit) Psychiatric: cooperative - Lab 10/13/18 06:00 10/13/18 06:00 Most recent lab results Calcium 7.7 mg/dL (8.4-10.2) L 10/13/18 06:00 Magnesium 1.60 mg/dL (1.7-2.3) L 10/13/18 06:00 Medications & Allergies - Medications Allergies/Adverse Reactions: Allergies metformin Allergy (Verified 09/20/18 14:38) Hives metoclopramide HCl [From Reglan] Allergy (Verified 09/20/18 14:38) Hives prochlorperazine [From Compazine] Allergy (Verified 09/20/18 14:38) Hives prochlorperazine edisylate [From Compazine] Allergy (Verified 09/20/18 14:38) Hives prochlorperazine maleate [From Compazine] Allergy (Verified 09/20/18 14:38) Hives haloperidol [From Haldol] Adverse Reaction (Verified 09/20/18 14:38) Unknown PT STATES HER TEETH CHATTERED AND HER "EYES DRIFTED OFF" shellfish Allergy (Uncoded 09/20/18 14:38) Swelling Home Medications: Home Medications Medication Instructions Recorded Confirmed Last Taken Type Apixaban [Eliquis] 2.5 mg PO Q12HR #60 tablet 08/04/18 10/11/18 09/14/18 Rx Labetalol [Normodyne TAB] 300 mg PO TID #90 tablet 08/04/18 10/11/18 09/17/18 Rx Amitriptyline [Elavil] 10 mg PO BID 10/11/18 10/11/18 Unknown History Ondansetron [Zofran TAB] 4 mg PO Q6H 10/11/18 10/11/18 Unknown History hydrALAZINE [Apresoline TAB] 50 mg PO BID 10/11/18 10/11/18 Unknown History Active Medications: Generic Name Dose Route Start Last Admin Trade Name Freq PRN Reason Stop Dose Admin Acetaminophen 650 mg 10/11/18 22:22 Tylenol PO Q4H PRN Pain MILD(1-3)/Fever >100.5/CHAVES Albumin Human 25 gm 10/12/18 10:18 Alburx 25% (Albumin) IV ELANA PRN Hypotension Amitriptyline HCl 10 mg 10/12/18 10:00 10/13/18 09:53 Elavil PO 10 mg BID TRUDI Administration Apixaban 2.5 mg 10/12/18 10:00 10/13/18 09:54 Eliquis PO 2.5 mg Q12HR TRUDI Administration Protocol Dextrose 50 ml 10/11/18 22:22 D50w (25gm) Syringe IV PRN PRN Hypoglycemia Diphenhydramine HCl 25 mg 10/11/18 22:29 10/13/18 01:05 Benadryl IV 25 mg Q6H PRN Administration Itching Epoetin Samuel 20,000 unit 10/12/18 10:18 10/12/18 14:30 Procrit IV 20,000 unit ELANA PRN Administration hemodialysis Hydralazine HCl 50 mg 10/12/18 10:00 10/13/18 10:51 Apresoline PO Not Given BID TRUDI Sodium Chloride 100 mls @ 999 mls/hr 10/12/18 10:18 Nacl 0.9% IV ELANA PRN Hypotension Cefepime HCl 1 gm in 100 mls @ 200 mls/hr 10/13/18 08:00 10/13/18 14:53 Maxipime/Ns 1 Gm/100 Ml IV 200 mls/hr Q8HR TRUDI Administration Protocol Insulin Human Lispro 0 unit 10/13/18 07:30 10/13/18 14:48 Humalog SUB-Q Not Given ACHS [facility] Protocol Labetalol HCl 100 mg 10/12/18 08:00 10/13/18 15:03 Normodyne PO Not Given TID TRUDI Labetalol HCl 200 mg 10/12/18 08:00 10/13/18 15:03 Normodyne PO Not Given TID TRUDI Lorazepam 0.5 mg 10/12/18 15:40 10/12/18 18:07 Ativan PO 0.5 mg Q8HR PRN Administration N/V Unrelieved By zofrvandana Ondansetron HCl 4 mg 10/11/18 22:22 10/13/18 01:06 Zofran IV 4 mg Q4H PRN Administration Nausea And Vomiting Pantoprazole Sodium 40 mg 10/12/18 16:00 10/13/18 09:54 Protonix IV 40 mg QDAY TRUDI Administration Sodium Chloride 10 ml 10/12/18 10:00 10/13/18 09:54 Sodium Chloride Flush Syringe 10 Ml IV 10 ml BID TRUDI Administration Sodium Chloride 10 ml 10/11/18 22:22 Sodium Chloride Flush Syringe 10 Ml IV PRN PRN LINE FLUSH Sucralfate 1 gm 10/12/18 18:00 10/13/18 15:02 Carafate PO 1 gm Q6HR TRUDI Administration
--- NOTE | 2018-10-13 15:23 | Progress Note ---
Assessment and Plan Sepsis with Gm negative bacteremia Intractable nausea and vomiting was likely secondary to gastroparesis Hypertension, stable Diabetes complicated by gastroparesis End-stage renal disease on HD History of CVA Chronic neuropathic pain Clotted/malfunctioning left arm AVG Plan cont antibiotics/cefepime, follow final cultures result, repeat blood cx cont anti-emetics, ativan po for intractable gastropresis, minimize pain meds Consulted renal for dialysis Check fingersticks with insulin sliding scale vascular consulted for left arm AVG, planned for procedure next week DVT prophylaxis Brief history: 37-year-old woman with a history with hypertension, diabetes complicated by gastroparesis, status post gastric pacemaker, end-stage renal disease on dialysis, CVA, presented to emergency room with complaints of left upper quadrant pain, nausea vomiting 3 days. She was seen in the emergency room on 10/10/[address] of the abdomen and pelvis was done which was negative, she was discharged home. She continues to have vomiting so she returned to the emergency room for further evaluation. She saw the doctor for evaluation of her gastric pacemaker in September 12 in [place] and everything was okay, settings were increased. She did meet SIRS criteria, admitted for N/V and possible sepsis. Physical exam: General Apperance: The patient lying in bed, breathing comfortable HEENT: Normocephalic, atraumatic. Pupils equally round and reactive to light, EOMI, no sclericterus or JVD or thyromegaly or nodule. , no carotid bruit, mucous membranes moist, no exudate or erythema Heart: S1-S2, regular is rhythm Lungs: Clear to auscultation bilaterally, breathing comfortable Abdomen: Positive bowel sounds, soft, nontender, nondistended, no organomegaly Extremities: No edema cyanosis clubbing Skin: no rash, nodule, warm and dry Neuro: cranial nerves 2-12 intact, speech is fluent, motor/sensory intact Subjective Date of service: 10/13/18 Interval history: pt seen and examined Improved N/V, better tolerated PO today Blood cx positive for gm negative rods Objective - Constitutional Vitals: Vital Signs - 12hr 10/13/18 10/13/18 10/13/18 04:41 05:50 08:46 Temperature 98.6 F 98.3 F Pulse Rate 80 82 79 Respiratory 20 18 20 Rate Blood Pressure 83/37 105/39 94/69 Blood Pressure [Right] O2 Sat by Pulse 100 100 99 Oximetry 10/13/18 10/13/18 10/13/18 08:48 09:33 11:30 Temperature 97.5 F L Pulse Rate 78 75 Respiratory 18 Rate Blood Pressure 105/69 Blood Pressure 96/52 [Right] O2 Sat by Pulse 99 Oximetry 10/13/18 11:32 Temperature 98.1 F Pulse Rate Respiratory Rate Blood Pressure Blood Pressure [Right] O2 Sat by Pulse Oximetry - Labs CBC & Chem 7: 10/13/18 06:00 10/13/18 06:00 Labs: Abnormal lab results 10/12/18 10/13/18 10/13/18 Range/Units 20:45 06:00 06:00 WBC 11.1 H (4.5-11.0) K/mm3 RBC 2.87 L (3.65-5.03) M/mm3 Hgb 8.8 L (10.1-14.3) gm/dl Hct 27.4 L (30.3-42.9) % RDW 17.4 H (13.2-15.2) % Lymph % (Auto) 12.8 L (13.4-35.0) % Jennings % (Auto) 7.7 H (0.0-7.3) % Jennings # 0.9 H (0.0-0.8) K/mm3 Seg Neutrophils % 78.8 H (40.0-70.0) % Seg Neutrophils # 8.8 H (1.8-7.7) K/mm3 Potassium 3.1 L (3.6-5.0) mmol/L BUN 24 H (7-17) mg/dL Creatinine 5.0 H (0.7-1.2) mg/dL Glucose 137 H (65-100) mg/dL POC Glucose 118 H (70-105) Calcium 7.7 L (8.4-10.2) mg/dL Magnesium 1.60 L (1.7-2.3) mg/dL
[2018-10-14] MEDS: BENADRYL IV PRN ×4 (00:20→23:17)
[2018-10-14] MEDS: CARAFATE PO SCH ×5 (00:20→23:58)
[2018-10-14] MEDS: MAXIPIME/NS 1 GM/100 ML 1 GM/100 ML BAG IV SCH ×2 (05:16→15:26)
--- NOTE | 2018-10-14 09:34 | Progress Note ---
Assessment and Plan Sepsis with Gm negative bacteremia (Enterobacter Cloacae) Intractable nausea and vomiting was likely secondary to gastroparesis Hypertension, stable Diabetes complicated by gastroparesis End-stage renal disease on HD History of CVA Chronic neuropathic pain Clotted/malfunctioning left arm AVG Plan cont antibiotics/cefepime, noted final cultures result, repeat blood cx negative, consult ID, order 2d echo cont anti-emetics, ativan po as needed for intractable gastropresis, minimize pain meds Consulted renal for dialysis Check fingersticks with insulin sliding scale vascular consulted for left arm AVG, planned for procedure next week DVT prophylaxis Brief history: 37-year-old woman with a history with hypertension, diabetes complicated by gastroparesis, status post gastric pacemaker, end-stage renal disease on dialysis, CVA, presented to emergency room with complaints of left upper quadrant pain, nausea vomiting 3 days. She was seen in the emergency room on 10/10/[address] of the abdomen and pelvis was done which was negative, she was discharged home. She continues to have vomiting so she returned to the emergency room for further evaluation. She saw the doctor for evaluation of her gastric pacemaker in September 12 in [place] and everything was okay, settings were increased. She did meet SIRS criteria, admitted for N/V and possible sepsis. Physical exam: General Apperance: The patient lying in bed, breathing comfortable HEENT: Normocephalic, atraumatic. Pupils equally round and reactive to light, EOMI, no sclericterus or JVD or thyromegaly or nodule. , no carotid bruit, mucous membranes moist, no exudate or erythema Heart: S1-S2, regular is rhythm Lungs: Clear to auscultation bilaterally, breathing comfortable Abdomen: Positive bowel sounds, soft, nontender, nondistended, no organomegaly Extremities: No edema cyanosis clubbing Skin: no rash, nodule, warm and dry Neuro: cranial nerves 2-12 intact, speech is fluent, motor/sensory intact Microbiology 10/13/18 08:05 Peripheral/Venous Blood Culture - Preliminary NO GROWTH AFTER 24 HOURS 10/13/18 08:05 Peripheral/Venous Blood Culture - Preliminary NO GROWTH AFTER 24 HOURS 10/12/18 05:50 Nares - Right MRSA Culture - Final 10/11/18 18:00 Peripheral/Venous Blood Culture - Final Enterobacter Cloacae Subjective Date of service: 10/14/18 Interval history: pt seen and examined Improved N/V, better tolerated PO today Blood cx positive for gm negative rods Objective - Constitutional Vitals: Vital Signs - 12hr 10/13/18 10/13/18 10/13/18 21:59 22:25 22:31 Temperature Pulse Rate Pulse Rate [ 82 Apical] Respiratory 16 Rate Respiratory 18 Rate [ Generalized] Blood Pressure O2 Sat by Pulse 100 100 Oximetry 10/14/18 10/14/18 00:12 04:10 Temperature 98.9 F 98.7 F Pulse Rate 80 Pulse Rate [ Apical] Respiratory 17 17 Rate Respiratory Rate [ Generalized] Blood Pressure 110/50 103/50 O2 Sat by Pulse 94 Oximetry - Labs CBC & Chem 7: 10/13/18 06:00 10/15/18 05:16 Labs: Abnormal lab results 10/13/18 10/13/18 Range/Units 16:20 21:06 POC Glucose 157 H 147 H (70-105)
[2018-10-14] MEDS: TYLENOL PO PRN (10:27)
[2018-10-14] MEDS: APRESOLINE PO SCH ×2 (10:45→23:50)
[2018-10-14] MEDS: PROTONIX IV SCH (10:45)
[2018-10-14] MEDS: ZOFRAN IV PRN ×2 (10:45→15:26)
[2018-10-14] MEDS: NORMODYNE PO SCH ×6 (10:46→20:33)
[2018-10-14] MEDS: ELAVIL PO SCH ×2 (10:47→21:50)
[2018-10-14] MEDS: ELIQUIS PO SCH ×2 (10:47→21:50)
[2018-10-14] MEDS: SODIUM CHLORIDE FLUSH SYRINGE 10 ML IV SCH ×2 (10:48→21:52)
[2018-10-14] MEDS: HumaLOG SUB-Q SCH ×5 (10:49→21:52)
[2018-10-14] MEDS: LIDODERM 5% TD SCH (10:56)
--- NOTE | 2018-10-14 14:16 | Progress Note ---
Assessment and Plan Impression * ESRD on HD * Malfunctioning AVG * Enterobacter bacteremia * Nausea/emesis * Gastroparesis * Hypertension * Type II DM * Anemia secondary to ESRD * Secondary hyperPTH Recommendations * Hemodialysis tomorrow * Note plans for access evaluation on Monday * Abx per primary team; surveillance blood cultures NGTD * Adjust diet and meds for ESRD state * Epogen TIW prn with HD * Renal diet * Binders with meals Subjective Date of service: 10/14/18 Interval history: Patient has no complaints today Objective - Vital Signs Vital signs: Vital Signs - 12hr 10/14/18 10/14/18 10/14/18 04:10 08:47 08:48 Temperature 98.7 F Pulse Rate 80 84 84 Respiratory 17 Rate Blood Pressure 103/50 136/69 O2 Sat by Pulse 94 100 100 Oximetry 10/14/18 10/14/18 10/14/18 10:00 10:45 10:46 Temperature Pulse Rate 84 84 Respiratory Rate Blood Pressure 136/69 136/69 O2 Sat by Pulse 100 Oximetry 10/14/18 10/14/18 10:47 13:06 Temperature 98.3 F Pulse Rate 69 82 Respiratory Rate Blood Pressure 136/69 O2 Sat by Pulse 100 Oximetry - General Appearance General appearance: well-developed, well-nourished EENT: ATNC Respiratory: Present: Clear to Ascultation Cardiology: regular, S1S2 Gastrointestinal: no tenderness, no distended, obese Musculoskeletal: other (no edema) Psychiatric: cooperative - Lab 10/13/18 06:00 10/13/18 06:00 Most recent lab results Calcium 7.7 mg/dL (8.4-10.2) L 10/13/18 06:00 Magnesium 1.60 mg/dL (1.7-2.3) L 10/13/18 06:00 Medications & Allergies - Medications Allergies/Adverse Reactions: Allergies metformin Allergy (Verified 09/20/18 14:38) Hives metoclopramide HCl [From Reglan] Allergy (Verified 09/20/18 14:38) Hives prochlorperazine [From Compazine] Allergy (Verified 09/20/18 14:38) Hives prochlorperazine edisylate [From Compazine] Allergy (Verified 09/20/18 14:38) Hives prochlorperazine maleate [From Compazine] Allergy (Verified 09/20/18 14:38) Hives haloperidol [From Haldol] Adverse Reaction (Verified 09/20/18 14:38) Unknown PT STATES HER TEETH CHATTERED AND HER "EYES DRIFTED OFF" shellfish Allergy (Uncoded 09/20/18 14:38) Swelling Home Medications: Home Medications Medication Instructions Recorded Confirmed Last Taken Type Apixaban [Eliquis] 2.5 mg PO Q12HR #60 tablet 08/04/18 10/11/18 09/14/18 Rx Labetalol [Normodyne TAB] 300 mg PO TID #90 tablet 08/04/18 10/11/18 09/17/18 Rx Amitriptyline [Elavil] 10 mg PO BID 10/11/18 10/11/18 Unknown History Ondansetron [Zofran TAB] 4 mg PO Q6H 10/11/18 10/11/18 Unknown History hydrALAZINE [Apresoline TAB] 50 mg PO BID 10/11/18 10/11/18 Unknown History Active Medications: Generic Name Dose Route Start Last Admin Trade Name Freq PRN Reason Stop Dose Admin Acetaminophen 650 mg 10/11/18 22:22 10/14/18 10:27 Tylenol PO 650 mg Q4H PRN Administration Pain MILD(1-3)/Fever >100.5/CHAVES Albumin Human 25 gm 10/12/18 10:18 Alburx 25% (Albumin) IV ELANA PRN Hypotension Amitriptyline HCl 10 mg 10/12/18 10:00 10/14/18 10:47 Elavil PO 10 mg BID TRUDI Administration Apixaban 2.5 mg 10/12/18 10:00 10/14/18 10:47 Eliquis PO 2.5 mg Q12HR TRUDI Administration Protocol Dextrose 50 ml 10/11/18 22:22 D50w (25gm) Syringe IV PRN PRN Hypoglycemia Diphenhydramine HCl 25 mg 10/11/18 22:29 10/14/18 10:45 Benadryl IV 25 mg Q6H PRN Administration Itching Epoetin Samuel 20,000 unit 10/12/18 10:18 10/12/18 14:30 Procrit IV 20,000 unit ELANA PRN Administration hemodialysis Hydralazine HCl 50 mg 10/12/18 10:00 10/14/18 10:45 Apresoline PO 50 mg BID TRUDI Administration Sodium Chloride 100 mls @ 999 mls/hr 10/12/18 10:18 Nacl 0.9% IV ELANA PRN Hypotension Cefepime HCl 1 gm in 100 mls @ 200 mls/hr 10/13/18 08:00 10/14/18 05:16 Maxipime/Ns 1 Gm/100 Ml IV 200 mls/hr Q8HR TRUDI Administration Protocol Insulin Human Lispro 0 unit 10/13/18 07:30 10/14/18 10:49 Humalog SUB-Q Not Given ACHS TRUDI Protocol Labetalol HCl 100 mg 10/12/18 08:00 10/14/18 10:46 Normodyne PO 100 mg TID TRUDI Administration Labetalol HCl 200 mg 10/12/18 08:00 10/14/18 10:47 Normodyne PO 200 mg TID TRUDI Administration Lidocaine 1 each 10/14/18 11:00 10/14/18 10:56 Lidoderm 5% TD 1 each QDAY TRUDI Administration Lorazepam 0.5 mg 10/12/18 15:40 10/12/18 18:07 Ativan PO 0.5 mg Q8HR PRN Administration N/V Unrelieved By [email or web address] Ondansetron HCl 4 mg 10/11/18 22:22 10/14/18 10:45 Zofran IV 4 mg Q4H PRN Administration Nausea And Vomiting Pantoprazole Sodium 40 mg 10/12/18 16:00 10/14/18 10:45 Protonix IV 40 mg QDAY TRUDI Administration Sodium Chloride 10 ml 10/12/18 10:00 10/14/18 10:48 Sodium Chloride Flush Syringe 10 Ml IV 10 ml BID TRUDI Administration Sodium Chloride 10 ml 10/11/18 22:22 Sodium Chloride Flush Syringe 10 Ml IV PRN PRN LINE FLUSH Sucralfate 1 gm 10/12/18 18:00 10/14/18 05:16 Carafate PO 1 gm Q6HR TRUDI Administration
--- NOTE | 2018-10-14 15:40 | Consultation ---
History of Present Illness - Reason for Consult Consult date: 10/14/18 GNR bacteremia Requesting physician: ALEC PARADA - History of Present Illness 37-year-old woman with a history with hypertension, diabetes complicated by gastroparesis, status post gastric pacemaker, ESRD on dialysis via left groin HD cath, s/p multiple failed HD accesses, recent left arm AVG s/p Left arm AV graft revision with open thrombectomy on 09/21/2018 which is currently clotted had a r ight AVG , CVA, poor stick s/p port; admitted on 10/11/2018 due to 3-day history of N/V x multiple. Also complaining of left upper quadrant pain 3 days, sharp, only present with nausea vomiting. She was seen in the emergency room on 10/10/[address] of the abdomen and pelvis was done which was negative. She is also c/o severe lower back pain and left AVG site and left knee pain. She reports left thigh and knee has been swollen since left groin HD cath was placed. In the ED, temp 103, HR 130, R 16, BP 206/90, WBC 5.7. Hg 10.2. Plat 244. Creat 6. K 3. Blood culture 10/11/2018 Enterobacter sensitive to cefepime 1 of 2 bottles. Repert blood cultures. Review of Systems: General: + fever, chills, nightsweats, unintentional weight change, or change in appetite Cutaneous: no rash, pruritus Head: no headaches or injury Eyes: no changes in vision, eye pain, double vision Ears: no ear pain, ear discharge, ringing or hearing loss Nose: no nose bleeding, stuffiness Mouth & throat: no bleeding gums, no horseness, no dental problems, or swollen glands Neck: no pain, node enlargement/lumps, tyroid enlargement or tenderness Respiratory: no cough, wheezing, sputum, hemoptysis, pleuritic chest pain Cardiovascular: no chest pain, leg edema, cyanosis, OLMOS, orthopnea Musculoskeletal: no decreased joint motion,+left knee and lower back pain Gastrointestinal: + nausea, + vomiting, hematemesis, diarrhea, constipation, melena, bright red blood in stools, fecal incontinence, jaundice Genitourinary/Reproductive: no frequent urination, dysuria, hematuria, incontinence Neurogical: no seizures, no headaches, no weakness, no paresthesias, no loss of speech or vision; no memory loss, no vertigo, no tremors, no numbness Psychiatric: stable mood; no excessive anxiety, sadness or moodiness Medications and Allergies Allergies Allergy/AdvReac Type Severity Reaction Status Date / Time metformin Allergy Hives Verified 09/20/18 14:38 metoclopramide HCl Allergy Hives Verified 09/20/18 14:38 [From Reglan] prochlorperazine Allergy Hives Verified 09/20/18 14:38 [From Compazine] prochlorperazine edisylate Allergy Hives Verified 09/20/18 14:38 [From Compazine] prochlorperazine maleate Allergy Hives Verified 09/20/18 14:38 [From Compazine] haloperidol [From Haldol] AdvReac Unknown Verified 09/20/18 14:38 shellfish Allergy Swelling Uncoded 09/20/18 14:38 Home Medications Medication Instructions Recorded Confirmed Last Taken Type Apixaban [Eliquis] 2.5 mg PO Q12HR #60 tablet 08/04/18 10/11/18 09/14/18 Rx Labetalol [Normodyne TAB] 300 mg PO TID #90 tablet 08/04/18 10/11/18 09/17/18 Rx Amitriptyline [Elavil] 10 mg PO BID 10/11/18 10/11/18 Unknown History Ondansetron [Zofran TAB] 4 mg PO Q6H 10/11/18 10/11/18 Unknown History hydrALAZINE [Apresoline TAB] 50 mg PO BID 10/11/18 10/11/18 Unknown History Active Meds: Active Medications Acetaminophen (Tylenol) 650 mg PO Q4H PRN PRN Reason: Pain MILD(1-3)/Fever >100.5/CHAVES Last Admin: 10/14/18 10:27 Dose: 650 mg Documented by: Albumin Human (Alburx 25% (Albumin)) 25 gm IV ELANA PRN PRN Reason: Hypotension Amitriptyline HCl (Elavil) 10 mg PO BID TRUDI Last Admin: 10/14/18 10:47 Dose: 10 mg Documented by: Apixaban (Eliquis) 2.5 mg PO Q12HR TRUDI; Protocol Last Admin: 10/14/18 10:47 Dose: 2.5 mg Documented by: Dextrose (D50w (25gm) Syringe) 50 ml IV PRN PRN PRN Reason: Hypoglycemia Diphenhydramine HCl (Benadryl) 25 mg IV Q6H PRN PRN Reason: Itching Last Admin: 10/14/18 10:45 Dose: 25 mg Documented by: Epoetin Samuel (Procrit) 20,000 unit IV ELANA PRN PRN Reason: hemodialysis Last Admin: 10/12/18 14:30 Dose: 20,000 unit Documented by: Hydralazine HCl (Apresoline) 50 mg PO BID [facility] Last Admin: 10/14/18 10:45 Dose: 50 mg Documented by: Sodium Chloride (Nacl 0.9%) 100 mls @ 999 mls/hr IV ELANA PRN PRN Reason: Hypotension Insulin Human Lispro (Humalog) 0 unit SUB-Q ACHS [facility]; Protocol Last Admin: 10/14/18 12:55 Dose: Not Given Documented by: Labetalol HCl (Normodyne) 100 mg PO TID [facility] Last Admin: 10/14/18 15:27 Dose: 100 mg Documented by: Labetalol HCl (Normodyne) 200 mg PO TID [facility] Last Admin: 10/14/18 15:28 Dose: 200 mg Documented by: Lidocaine (Lidoderm 5%) 1 each TD QDAY [facility] Last Admin: 10/14/18 10:56 Dose: 1 each Documented by: Lorazepam (Ativan) 0.5 mg PO Q8HR PRN PRN Reason: N/V Unrelieved By zofran Last Admin: 10/12/18 18:07 Dose: 0.5 mg Documented by: Ondansetron HCl (Zofran) 4 mg IV Q4H PRN PRN Reason: Nausea And Vomiting Last Admin: 10/14/18 15:26 Dose: 4 mg Documented by: Pantoprazole Sodium (Protonix) 40 mg IV QDAY [facility] Last Admin: 10/14/18 10:45 Dose: 40 mg Documented by: Sodium Chloride (Sodium Chloride Flush Syringe 10 Ml) 10 ml IV BID [facility] Last Admin: 10/14/18 10:48 Dose: 10 ml Documented by: Sodium Chloride (Sodium Chloride Flush Syringe 10 Ml) 10 ml IV PRN PRN PRN Reason: LINE FLUSH Sucralfate (Carafate) 1 gm PO Q6HR TRUDI Last Admin: 10/14/18 15:16 Dose: Not Given Documented by: Physical Examination - Physical Exam Narrative exam: The - Constitutional Vitals: Vital Signs Temp Pulse Resp BP Pulse Ox 98.3 F 84 17 145/80 100 10/14/18 13:06 10/14/18 15:28 10/14/18 04:10 10/14/18 15:28 10/14/18 13:06 Temperature -Last 24 Hours Temperature 98.3 F Temperature 98.7 F Temperature 98.9 F Temperature 98.6 F Temperature 98.1 F Results - Labs CBC & Chem 7: 10/13/18 06:00 10/13/18 06:00 Labs: Abnormal lab results 10/13/18 10/13/18 Range/Units 16:20 21:06 POC Glucose 157 H 147 H (70-105) Assessment and Plan Cultures: Blood culture 10/11/2018 Enterobacter sensitive to cefepime 1 of 2 bottles. Blood culture 10/13/2018 no growth Assessment: 37-year-old woman with a history with hypertension, diabetes complicated by gastroparesis, status post gastric pacemaker, ESRD on dialysis via left groin HD cath, s/p multiple failed HD accesses, recent left arm AVG s/p Left arm AV graft revision with open thrombectomy on 09/21/2018 which is currently clotted, had a right failed AVG, CVA, poor stick s/p port; admitted on 10/11/2018 due to 3-day history of N/V x multiple, abdominal pain and fever: 1) Sepsis: Present on admission, manifested by fever 103, tachycardia. Etiology most likely Enterobacter bacteremia. 2) Enterobacter bacteremia: patient with multiple possible source ? port, left groin HD cath, bilateral arms AVG with left arm AVG clotted and painful. S/p Left arm AV graft revision with open thrombectomy on 09/21/2018. 3) N/V: ? gastroparesis. CT of the abdomen and pelvis was done which was negative. Recommendations: - follow-up repeat blood cultures - change cefepime to 1 gm IV qday - discuss with Vascular and Renal need to exchange left groin HD access - obtain TTE - in light of many accesses that are unable to be removed will do ceftazidime (fortaz) on HD 2g on Monday, 2g on Monday and 3g on Monday for 3 weeks total, followed by surveillance blood cultures at 1 and 3 weeks after completed infusion , Will follow. Mariza Hoffman MD Infectious Diseases [employer] [facility] M [phone] O [phone]
[2018-10-14 17:07] LABS: Calcium 8.7 mg/dL (8.4-10.2)
[2018-10-15] MEDS: MAXIPIME/NS 2 GM/100 ML 2 GM/100 ML BAG IV SCH (04:23)
[2018-10-15 05:51] LABS: Calcium 8.3 mg/dL (8.4-10.2)
[2018-10-15] MEDS: CARAFATE PO SCH ×2 (06:07→15:20)
[2018-10-15] MEDS: HumaLOG SUB-Q SCH ×3 (09:18→21:09)
[2018-10-15] MEDS: NORMODYNE PO SCH ×6 (09:18→21:18)
[2018-10-15] MEDS: APRESOLINE PO SCH ×2 (10:00→22:00)
[2018-10-15] MEDS: ELAVIL PO SCH ×2 (10:00→21:15)
--- NOTE | 2018-10-15 10:15 | Progress Note ---
Subjective Interval history: Patient was seen today for follow-up on multiple renal related issues Events of this hospitalization noted Patient denies having any chest pain pressure or shortness of breath Vitals labs intake output medications were reviewed Social history: Reviewed Allergies: Reviewed Family history: Reviewed Physical examination HEENT: Oral mucosa moist no pallor or icterus Neck: Supple no JVD Chest: Clear to auscultation anteriorly CVS: Regular rate and rhythm S1 and S2 heard Abdomen: Soft nontender no suprapubic masses no organomegaly appreciable Extremity: Dry skin less than 1+ peripheral edema Swelling in the left leg Musculoskeletal: No joint effusion noted in knees and ankle Neurological: Alert awake Dermatology: No petechial rashes Psychiatry: No evidence of any agitation and aggression noted Assessment and plan End-stage renal disease: Patient is currently on maintenance hemodialysis on Monday and Monday Admitted with malfunctioning AV graft: Will need to be evaluated by vascular surgery for dialysis today History of enterococcal bacteremia, antibiotic per primary team continue to monitor white cell count as well as fever trend, status post infectious disease evaluation Patient was admitted with sepsis-like picture fever of 103 elevated white cell count tachycardia felt to be due to enterococcal bacteremia One blood culture positive for Enterobacter 10/12/2018 Follow-up cultures negative for last 24 hours Accelerated hypertension requires adjustment of blood pressure medication We'll start the patient on losartan 50 mg once a day and follow Anemia in end-stage renal disease: To monitor and follow erythropoietin periodically Secondary hyperparathyroidism: Continue with binders with meals monitor phosphorus and PTH periodically Nausea vomiting with history of prior gastroparalysis likely due to diabetes, status post gastric pacemaker placement Current dialysis access is a left groin hemodialysis catheter Patient has history of multiple failed dialysis accesses Status post AV graft revision and thrombectomy on 09/21/2018 Prior history of CVA Left thigh and knee swelling ever since the dialysis catheter was placed: Vascular surgery to evaluate and follow Patient was adequately counseled and educated regarding multiple renal related issues Pertinent lab findings were discussed with patient, patient does exhibit good understanding of renal issues We'll continue to follow and make recommendation from renal standpoint Objective - Vital Signs Vital signs: Vital Signs - 12hr 10/14/18 23:50 Pulse Rate 80 Blood Pressure 179/97 - Lab 10/13/18 06:00 10/15/18 05:16 Most recent lab results Calcium 8.3 mg/dL (8.4-10.2) L 10/15/18 05:16 Magnesium 1.60 mg/dL (1.7-2.3) L 10/13/18 06:00 Medications & Allergies - Medications Allergies/Adverse Reactions: Allergies metformin Allergy (Verified 09/20/18 14:38) Hives metoclopramide HCl [From Reglan] Allergy (Verified 09/20/18 14:38) Hives prochlorperazine [From Compazine] Allergy (Verified 09/20/18 14:38) Hives prochlorperazine edisylate [From Compazine] Allergy (Verified 09/20/18 14:38) Hives prochlorperazine maleate [From Compazine] Allergy (Verified 09/20/18 14:38) Hives haloperidol [From Haldol] Adverse Reaction (Verified 09/20/18 14:38) Unknown PT STATES HER TEETH CHATTERED AND HER "EYES DRIFTED OFF" shellfish Allergy (Uncoded 09/20/18 14:38) Swelling Home Medications: Home Medications Medication Instructions Recorded Confirmed Last Taken Type Apixaban [Eliquis] 2.5 mg PO Q12HR #60 tablet 08/04/18 10/11/18 09/14/18 Rx Labetalol [Normodyne TAB] 300 mg PO TID #90 tablet 08/04/18 10/11/18 09/17/18 Rx Amitriptyline [Elavil] 10 mg PO BID 10/11/18 10/11/18 Unknown History Ondansetron [Zofran TAB] 4 mg PO Q6H 10/11/18 10/11/18 Unknown History hydrALAZINE [Apresoline TAB] 50 mg PO BID 10/11/18 10/11/18 Unknown History Active Medications: Generic Name Dose Route Start Last Admin Trade Name Freq PRN Reason Stop Dose Admin Acetaminophen 650 mg 10/11/18 22:22 10/14/18 10:27 Tylenol PO 650 mg Q4H PRN Administration Pain MILD(1-3)/Fever >100.5/CHAVES Albumin Human 25 gm 10/12/18 10:18 Alburx 25% (Albumin) IV ELANA PRN Hypotension Amitriptyline HCl 10 mg 10/12/18 10:00 10/14/18 21:50 Elavil PO 10 mg BID TRUDI Administration Apixaban 2.5 mg 10/12/18 10:00 10/14/18 21:50 Eliquis PO 2.5 mg Q12HR TRUDI Administration Protocol Dextrose 50 ml 10/11/18 22:22 D50w (25gm) Syringe IV PRN PRN Hypoglycemia Diphenhydramine HCl 25 mg 10/11/18 22:29 10/14/18 23:17 Benadryl IV 25 mg Q6H PRN Administration Itching Epoetin Samuel 20,000 unit 10/12/18 10:18 10/12/18 14:30 Procrit IV 20,000 unit ELANA PRN Administration hemodialysis Hydralazine HCl 50 mg 10/12/18 10:00 10/14/18 23:50 Apresoline PO 50 mg BID TRUDI Administration Sodium Chloride 100 mls @ 999 mls/hr 10/12/18 10:18 Nacl 0.9% IV ELANA PRN Hypotension Cefepime HCl 2 gm in 100 mls @ 200 mls/hr 10/15/18 04:00 10/15/18 04:23 Maxipime/Ns 2 Gm/100 Ml IV 200 mls/hr Q24H TRUDI Administration Protocol Insulin Human Lispro 0 unit 10/13/18 07:30 10/15/18 09:18 Humalog SUB-Q Not Given ACHS [facility] Protocol Labetalol HCl 100 mg 10/12/18 08:00 10/15/18 09:18 Normodyne PO Not Given TID TRUDI Labetalol HCl 200 mg 10/12/18 08:00 10/15/18 09:18 Normodyne PO Not Given TID [facility] Lidocaine 1 each 10/14/18 11:00 10/14/18 10:56 Lidoderm 5% TD 1 each QDAY TRUDI Administration Lorazepam 0.5 mg 10/12/18 15:40 10/12/18 18:07 Ativan PO 0.5 mg Q8HR PRN Administration N/V Unrelieved By zofran Losartan Potassium 50 mg 10/16/18 10:00 Cozaar PO QDAY TRUDI Ondansetron HCl 4 mg 10/11/18 22:22 10/14/18 15:26 Zofran IV 4 mg Q4H PRN Administration Nausea And Vomiting Pantoprazole Sodium 40 mg 10/12/18 16:00 10/14/18 10:45 Protonix IV 40 mg QDAY TRUDI Administration Sodium Chloride 10 ml 10/12/18 10:00 10/14/18 21:52 Sodium Chloride Flush Syringe 10 Ml IV 10 ml BID TRUDI Administration Sodium Chloride 10 ml 10/11/18 22:22 Sodium Chloride Flush Syringe 10 Ml IV PRN PRN LINE FLUSH Sucralfate 1 gm 10/12/18 18:00 10/15/18 06:07 Carafate PO Not Given Q6HR TRUDI
--- NOTE | 2018-10-15 10:18 | Progress Note ---
Assessment and Plan Cultures: Blood culture 10/11/2018 Enterobacter sensitive to cefepime 1 of 2 bottles. Blood culture 10/13/2018 no growth Assessment: 37-year-old woman with a history with hypertension, diabetes complicated by gastroparesis, status post gastric pacemaker, ESRD on dialysis via left groin HD cath, s/p multiple failed HD accesses, recent left arm AVG s/p Left arm AV graft revision with open thrombectomy on 09/21/2018 which is currently clotted, had a right failed AVG, CVA, poor stick s/p port; admitted on 10/11/2018 due to 3-day history of N/V x multiple, abdominal pain and fever: 1) Sepsis: improving. Etiology most likely Enterobacter bacteremia. 2) Enterobacter bacteremia: patient with multiple possible source ? port, left groin HD cath, bilateral arms AVG with left arm AVG clotted and painful. S/p Left arm AV graft revision with open thrombectomy on 09/21/2018. 3) N/V: ? gastroparesis. CT of the abdomen and pelvis was done which was negative. Recommendations: - XR left knee and ankle and art doppler in light of severe left leg pain - CRP - follow-up repeat blood cultures - ccontinue cefepime to 1 gm IV qday - will discuss with Vascular and Renal need to exchange left groin HD access - obtain TTE - pending - in light of many accesses that are unable to be removed will do ceftazidime (fortaz) on HD 2g on Monday, 2g on Monday and 3g on Monday for 3 weeks total, followed by surveillance blood cultures at 1 and 3 weeks after completed infusion Will follow. Mariza Hoffman MD Infectious Diseases [employer] [facility] M [phone] O [phone] Subjective Date of service: 10/15/18 Principal diagnosis: bacteremia Interval history: Remains c/o left leg pain and lower back pain, no fever. No fever x 48h ROS: +left leg pain +lower back pain, rest neg Objective - Exam Narrative Exam: General appearance: Alert in NAD, conversant morbdily obese Eyes: anicteric sclerae, moist conjunctivae; no lid-lag; PERRLA HENT: Atraumatic; oropharynx clear with moist mucous membranes and no mucosal ulcerations/no oral thrush; normal hard and soft palate. Normal external ears. Neck: Trachea midline; supple, no thyromegaly or lymphadenopathy Lungs: CTA, with normal respiratory effort and no intercostal retractions + right sided port CV: RRR, +murmurs Abdomen: Soft, non-tender; obese Extremities: toney leg edema, left groin HD cath, left arm AVG, no knee effusion Skin: Normal temperature, turgor and texture; no rash, ulcers or subcutaneous nodules Psych: Appropriate affect, alert and oriented to person, place and time. Neuro: alert and oriented x 3. Moving all extermities - Constitutional Vitals: Vital Signs Temp Pulse Resp BP Pulse Ox 98.1 F 80 17 179/97 100 10/14/18 20:22 10/14/18 23:50 10/14/18 20:22 10/14/18 23:50 10/14/18 21:00 Temperature -Last 24 Hours Temperature 98.1 F Temperature 98.3 F - Labs CBC & Chem 7: 10/13/18 06:00 10/15/18 05:16 Labs: Abnormal lab results 10/14/18 10/14/18 10/14/18 Range/Units 12:26 15:09 21:52 Sodium 135 L (137-145) mmol/L Chloride 94.7 L (98-107) mmol/L BUN 35 H (7-17) mg/dL Creatinine 6.6 H (0.7-1.2) mg/dL Glucose (65-100) mg/dL POC Glucose 114 H 107 H (70-105) Calcium (8.4-10.2) mg/dL 10/15/18 10/15/18 Range/Units 05:09 05:16 Sodium (137-145) mmol/L Chloride (98-107) mmol/L BUN 40 H (7-17) mg/dL Creatinine 8.0 H (0.7-1.2) mg/dL Glucose 64 L (65-100) mg/dL POC Glucose 58 L (70-105) Calcium 8.3 L (8.4-10.2) mg/dL
--- NOTE | 2018-10-15 14:28 | XRay Report ---
LEFT KNEE, 2 views: History: Left knee pain The bony architecture is intact without evidence of fracture or dislocation. No significant soft tissue abnormality is seen. IMPRESSION: Unremarkable left knee.
--- NOTE | 2018-10-15 14:28 | XRay Report ---
LEFT ANKLE, 2 VIEWS History: Left ankle pain. Findings: Nonstandard portable views of the left ankle were obtained. Mild osteoarthritic changes and small plantar spur identified. No evidence for fracture, bone lesion or bony destruction. Impression: Limited exam. Mild degenerative changes.
--- NOTE | 2018-10-15 15:02 | Vascular Lab Report ---
FINAL REPORT EXAM: VL ARTERIAL DUPLEX LE BILAT HISTORY: severe left leg pain COMPARISON: None. TECHNIQUE: Duplex Doppler ultrasound is of arteries of the bilateral lower extremities was performed . FINDINGS: There are triphasic waveforms of the right common femoral artery, superficial femoral artery, profund a branch, and popliteal artery. There are biphasic waveforms of the right posterior tibial artery and anterior tibial artery. There is no visualized stenosis. There are triphasic waveforms of the left common femoral artery, superficial femoral artery, profunda branch, and popliteal artery. There are biphasic waveforms of the left posterior tibial artery and a nterior tibial artery. There is no visualized stenosis. Peak systolic velocities (cm/sec) are as follows: Right common femoral artery: 186.4 Right superficial femoral artery: 170.1 Right profunda branch: 92 Right popliteal artery: 90.8 Right posterior tibial artery: 51.1 Right anterior tibial artery: 112.5 Left common femoral artery: 187.6 Left superficial femoral artery: 159.4 Left profunda branch: 96.1 Left popliteal artery: 89.5 Left posterior tibial artery: 56.3 Left anterior tibial artery: 54.5 IMPRESSION: No evidence of arterial occlusive disease of the bilateral lower extremities.
[2018-10-15] MEDS: ELIQUIS PO SCH ×2 (15:19→21:16)
[2018-10-15] MEDS ORDERED: ANCEF/STERILE WATER 2 GM/20 ML 2 GM/20 ML SYRINGE IV ONE (15:36)
[2018-10-15] MEDS ORDERED: XYLOCAINE 2% INFILTRATI ONE (15:36)
[2018-10-15] MEDS ORDERED: NACL 0.9% 250ML 250 ML ONE ×2 (15:36→15:41)
[2018-10-15] MEDS ORDERED: HEPARIN/NS 5000 UNIT/500ML(CATH LAB) 500 ML IR ONE (15:37)
[2018-10-15] MEDS ORDERED: HEPARIN 10,000 UNITS/10 ML ONE (15:37)
[2018-10-15] MEDS: SUBLIMAZE ONE ×2 (15:49→15:52)
[2018-10-15] MEDS: VERSED ONE ×2 (15:49→15:52)
[2018-10-15] MEDS ORDERED: VERSED ONE (16:13)
[2018-10-15] MEDS ORDERED: SUBLIMAZE ONE (16:13)
--- NOTE | 2018-10-15 16:41 | Progress Note ---
Assessment and Plan Sepsis with Gm negative bacteremia (Enterobacter Cloacae) Intractable nausea and vomiting was likely secondary to gastroparesis Hypertension, stable Diabetes complicated by gastroparesis End-stage renal disease on HD History of CVA Chronic Anticoagulation with eliquis Chronic neuropathic pain Clotted/malfunctioning left arm AVG Plan cont antibiotics/cefepime, noted final cultures result, repeat blood cx negative, consult ID for abx recommendation, ordered 2d echo, plan to change HD catheter today for bacteremia which was placed as alternative of AVG for HD vascular consulted for left arm AVG, planned for procedure this week - will follow vascular recommendation as patient now bacteremic cont anti-emetics, ativan po as needed for intractable gastropresis, minimize pain meds Consulted renal for dialysis Check fingersticks with insulin sliding scale DVT prophylaxis Brief history: 37-year-old woman with a history with hypertension, diabetes complicated by gastroparesis, status post gastric pacemaker, end-stage renal disease on dialysis, CVA, presented to emergency room with complaints of left upper quadrant pain, nausea vomiting 3 days. She was seen in the emergency room on 10/10/[address] of the abdomen and pelvis was done which was negative, she was discharged home. She continues to have vomiting so she returned to the emergency room for further evaluation. She saw the doctor for evaluation of her gastric pacemaker in September 12 in [place] and everything was okay, settings were increased. She did meet SIRS criteria, admitted for N/V and possible sepsis. Blood Cx grew gm -ve lex, vascular consulted for HD access. Physical exam: General Apperance: The patient lying in bed, breathing comfortable HEENT: Normocephalic, atraumatic. Pupils equally round and reactive to light, EOMI, no sclericterus or JVD or thyromegaly or nodule. , no carotid bruit, mucous membranes moist, no exudate or erythema Heart: S1-S2, regular is rhythm Lungs: Clear to auscultation bilaterally, breathing comfortable Abdomen: Positive bowel sounds, soft, nontender, nondistended, no organomegaly Extremities: No edema cyanosis clubbing Skin: no rash, nodule, warm and dry Neuro: cranial nerves 2-12 intact, speech is fluent, motor/sensory intact Microbiology 10/13/18 08:05 Peripheral/Venous Blood Culture - Preliminary NO GROWTH AFTER 24 HOURS 10/13/18 08:05 Peripheral/Venous Blood Culture - Preliminary NO GROWTH AFTER 24 HOURS 10/12/18 05:50 Nares - Right MRSA Culture - Final 10/11/18 18:00 Peripheral/Venous Blood Culture - Final Enterobacter Cloacae Subjective Date of service: 10/15/18 Principal diagnosis: bacteremia Interval history: pt seen and examined Improved N/V, plan for HD catheter change today Blood cx positive for gm negative rods Objective - Constitutional Vitals: Vital Signs - 12hr 10/15/18 10/15/18 11:43 14:22 Temperature 98.2 F 98.6 F Pulse Rate 82 83 Respiratory 20 18 Rate Blood Pressure 149/84 146/86 [Right] O2 Sat by Pulse 100 100 Oximetry - Labs CBC & Chem 7: 10/13/18 06:00 10/15/18 05:16 Labs: Abnormal lab results 10/14/18 10/14/18 10/14/18 Range/Units 12:26 15:09 21:52 Sodium 135 L (137-145) mmol/L Chloride 94.7 L (98-107) mmol/L BUN 35 H (7-17) mg/dL Creatinine 6.6 H (0.7-1.2) mg/dL Glucose (65-100) mg/dL POC Glucose 114 H 107 H (70-105) Calcium (8.4-10.2) mg/dL C-Reactive Protein (0.00-1.30) mg/dL 10/15/18 10/15/18 10/15/18 Range/Units 05:09 05:16 05:16 Sodium (137-145) mmol/L Chloride (98-107) mmol/L BUN 40 H (7-17) mg/dL Creatinine 8.0 H (0.7-1.2) mg/dL Glucose 64 L (65-100) mg/dL POC Glucose 58 L (70-105) Calcium 8.3 L (8.4-10.2) mg/dL C-Reactive Protein 8.60 H (0.00-1.30) mg/dL 10/15/18 Range/Units 11:35 Sodium (137-145) mmol/L Chloride (98-107) mmol/L BUN (7-17) mg/dL Creatinine (0.7-1.2) mg/dL Glucose (65-100) mg/dL POC Glucose 61 L (70-105) Calcium (8.4-10.2) mg/dL C-Reactive Protein (0.00-1.30) mg/dL
--- NOTE | 2018-10-15 16:57 | Operative Report ---
Operative Report Operative Report: EXAM: 1. Fluoroscopic guided exchange of a left common femoral vein tunneled cuffed hemodialysis catheter. 2. Inferior vena cava venography, left common iliac vein venography, left external iliac vein venography 3. Angioplasty of the inferior vena cava, left common iliac vein, and left external iliac vein DATE: 10/15/18 INDICATION: 37-year-old female with left femoral PermCath with bacteremia MEDICATIONS: Please see nursing report for full details. TANK PUMPER PANELBOARD: CALLY ORNELAS MD DEVICES: 44 cm tip to cuff 15 Fr dual lumen hemodialysis catheter (no 55 cm available in the hospital) ; existing catheter was a 55 cm tip to cuff dual lumen hemodialysis catheter CONTRAST: 100 mL nonionic contrast PROCEDURE: The risks, benefits, and alternatives were discussed and informed consent was obtained. The patient was transported to the angiography suite in satisfactory/stable condition and was transported onto the angiography table. The patient left groin was prepped and draped in a sterile fashion. The existing PermCath was prepped and draped in a sterile fashion. Heparin was removed from the lumens and then saline was used to flush the lumens. A stiff angled Glidewire was advanced through one of the existing PermCath into the SVC. Lidocaine was used to anesthetize the existing PermCath dermatotomy. Using a hemostat, blunt dissection was used to free the existing cuff. The catheter was partially retracted. Digital subtraction venography was performed through the other lumen. Over the 0.035 inch wire, the existing PermCath was removed and the wire was cleaned with chlorprep. 12 Lao sheath was advanced over the wire. Digital subtraction angiography was performed through the sheath. 12 mm x 6 cm angioplasty balloon was advanced over the wire and used to perform angioplasty of the IVC, left common iliac vein, and left external iliac vein. Digital subtraction angiography was repeated through the sheath. The old catheter tip was cut off and sent for culture. There is no new 55 cm palindrome available. The longest catheter available was a 44 cm tip to cuff palindrome. Wires were cleaned with ChloraPrep. A new PermCath was advanced over the wire and position centrally under fluoroscopic guidance. 2-0 Ethilon suture was used to secure the catheter at the dermatotomy. The catheter was charged with heparin 1000 units/mL space. Sterile dressing applied.. The patient was transferred from the angiography suite back to the floor in stable condition. FINDINGS: 1. Excellent flow was obtained through the dialysis catheter with 20 mL syringes. 2. The old catheter tip was in the inferior cavoatrial junction. The new catheter tip in the hepatic confluence due to non availability of a 55 cm tip to cuff permcath. 3. The inferior vena cava had irregularity with intact and what appears to be an old thrombus in the IVC near the renal confluence. The left common iliac vein had 50% narrowing, and the left external iliac vein had a 90% narrowing. After angioplasty with a 12 mm angioplasty balloon, the IVC was patent except for an area of old chronic thrombus in the renal confluence. Patient is already on anticoagulation. Left common iliac vein narrowing resolved. The left external iliac vein narrowing was 50% residual. IMPRESSION: 1. Successful fluoroscopic guided replacement of a left common femoral vein tunneled cuffed hemodialysis catheter. 2. Successful angioplasty of the IVC, left common iliac vein, and left external iliac vein.
[2018-10-15] MEDS ORDERED: NACL 0.9 (PRIMING MACHINE ONLY DIALYSIS) MC ONE (17:24)
[2018-10-15] MEDS: BENADRYL IV PRN (17:51)
[2018-10-15] MEDS: PROCRIT IV PRN (17:55)
[2018-10-15] MEDS: PROTONIX IV SCH (21:15)
[2018-10-15] MEDS: LIDODERM 5% TD SCH ×2 (21:15→21:20)
[2018-10-15] MEDS: SODIUM CHLORIDE FLUSH SYRINGE 10 ML IV SCH ×2 (21:16→21:19)
[2018-10-16] MEDS: CARAFATE PO SCH ×5 (01:37→23:34)
[2018-10-16] MEDS: MAXIPIME/NS 2 GM/100 ML 2 GM/100 ML BAG IV SCH (03:57)
[2018-10-16 06:09] LABS: Basophils # (Auto) 0.1 K/mm3 (0.0-0.1); Basophils % (Auto) 0.8 % (0.0-1.8); Eosinophils # (Auto) 0.2 K/mm3 (0.0-0.4); Eosinophils % (Auto) 3.2 % (0.0-4.3); Hematocrit 29.6 % (30.3-42.9); Hemoglobin 9.7 gm/dl (10.1-14.3); Lymphocytes # (Auto) 1.4 K/mm3 (1.2-5.4); Lymphocytes % (Auto) 18.7 % (13.4-35.0); Mean Corpuscular HGB Conc 33 % (30-34); Mean Corpuscular Volume 94 fl (79-97); Monocytes # (Auto) 0.6 K/mm3 (0.0-0.8); Monocytes % (Auto) 7.9 % (0.0-7.3); Platelet Count 289 K/mm3 (140-440); Red Blood Count 3.17 M/mm3 (3.65-5.03); Red Cell Distribution Width 17.2 % (13.2-15.2)
[2018-10-16 06:31] LABS: Calcium 8.5 mg/dL (8.4-10.2)
[2018-10-16] MEDS: HumaLOG SUB-Q SCH ×4 (08:38→22:00)
[2018-10-16] MEDS: NORMODYNE PO SCH ×6 (09:05→21:43)
--- NOTE | 2018-10-16 09:07 | Progress Note ---
Subjective Principal diagnosis: bacteremia Interval history: Patient was seen today for follow-up on multiple renal related issues Events of this hospitalization noted Uterus post left femoral catheter placement Patient denies having any chest pain pressure or shortness of breath Vitals labs intake output medications were reviewed Social history: Reviewed Allergies: Reviewed Family history: Reviewed Physical examination HEENT: Oral mucosa moist no pallor or icterus Neck: Supple no JVD Chest: Clear to auscultation anteriorly CVS: Regular rate and rhythm S1 and S2 heard Abdomen: Soft nontender no suprapubic masses no organomegaly appreciable Extremity: Dry skin less than 1+ peripheral edema Swelling in the left leg Musculoskeletal: No joint effusion noted in knees and ankle Neurological: Alert awake Dermatology: No petechial rashes Psychiatry: No evidence of any agitation and aggression noted Assessment and plan End-stage renal disease: Patient is currently on maintenance hemodialysis on Monday and Monday Status post the placement of left femoral tunnel cuff catheter, inferior vena venogram, status post angioplasty of inferior vena cava, left, and I iliac vein as well as left external likely vein From dialysis standpoint patient's hemoglobin is 9.6 platelet count 289,000 potassium 3.6 BUN 21 creatinine is 5.1 Hypoglycemia: Blood sugar noted to be in 60s since yesterday needs to be addressed by the primary team Admitted with malfunctioning AV graft: Current access is a central venous cath eter History of enterococcal bacteremia, antibiotic per primary team continue to monitor white cell count as well as fever trend, status post infectious disease evaluation Patient was admitted with sepsis-like picture fever of 103 elevated white cell count tachycardia felt to be due to enterococcal bacteremia One blood culture positive for Enterobacter 10/12/2018 Follow-up cultures negative for last 24 hours Accelerated hypertension requires adjustment of blood pressure medication will increase losartan to 100 mg Anemia in end-stage renal disease: To monitor and follow erythropoietin periodically Secondary hyperparathyroidism: Continue with binders with meals monitor phosphorus and PTH periodically Nausea vomiting with history of prior gastroparalysis likely due to diabetes, status post gastric pacemaker placement Current dialysis access is a left groin hemodialysis catheter Patient has history of multiple failed dialysis accesses Status post AV graft revision and thrombectomy on 09/21/2018 Prior history of CVA Left thigh and knee swelling ever since the dialysis catheter was placed: Vascular surgery to evaluate and follow Patient was adequately counseled and educated regarding multiple renal related issues Pertinent lab findings were discussed with patient, patient does exhibit good understanding of renal issues We'll continue to follow and make recommendation from renal standpoint Objective - Vital Signs Vital signs: Vital Signs - 12hr 10/15/18 10/16/18 10/16/18 21:18 00:05 04:02 Temperature 98.2 F 97.9 F Pulse Rate 82 85 84 Respiratory 18 18 Rate Blood Pressure 122/69 151/77 164/78 O2 Sat by Pulse 100 100 Oximetry 10/16/18 07:32 Temperature 98.8 F Pulse Rate 89 Respiratory 18 Rate Blood Pressure 167/83 O2 Sat by Pulse 100 Oximetry - Lab 10/16/18 05:55 10/16/18 05:55 Most recent lab results Calcium 8.5 mg/dL (8.4-10.2) 10/16/18 05:55 Magnesium 1.60 mg/dL (1.7-2.3) L 10/13/18 06:00 Medications & Allergies - Medications Allergies/Adverse Reactions: Allergies metformin Allergy (Verified 09/20/18 14:38) Hives metoclopramide HCl [From Reglan] Allergy (Verified 09/20/18 14:38) Hives prochlorperazine [From Compazine] Allergy (Verified 09/20/18 14:38) Hives prochlorperazine edisylate [From Compazine] Allergy (Verified 09/20/18 14:38) Hives prochlorperazine maleate [From Compazine] Allergy (Verified 09/20/18 14:38) Hives haloperidol [From Haldol] Adverse Reaction (Verified 09/20/18 14:38) Unknown PT STATES HER TEETH CHATTERED AND HER "EYES DRIFTED OFF" shellfish Allergy (Uncoded 09/20/18 14:38) Swelling Home Medications: Home Medications Medication Instructions Recorded Confirmed Last Taken Type Apixaban [Eliquis] 2.5 mg PO Q12HR #60 tablet 08/04/18 10/11/18 09/14/18 Rx Labetalol [Normodyne TAB] 300 mg PO TID #90 tablet 08/04/18 10/11/18 09/17/18 Rx Amitriptyline [Elavil] 10 mg PO BID 10/11/18 10/11/18 Unknown History Ondansetron [Zofran TAB] 4 mg PO Q6H 10/11/18 10/11/18 Unknown History hydrALAZINE [Apresoline TAB] 50 mg PO BID 10/11/18 10/11/18 Unknown History Active Medications: Generic Name Dose Route Start Last Admin Trade Name Freq PRN Reason Stop Dose Admin Acetaminophen 650 mg 10/11/18 22:22 10/14/18 10:27 Tylenol PO 650 mg Q4H PRN Administration Pain MILD(1-3)/Fever >100.5/CHAVES Albumin Human 25 gm 10/12/18 10:18 Alburx 25% (Albumin) IV ELANA PRN Hypotension Amitriptyline HCl 10 mg 10/12/18 10:00 10/15/18 21:15 Elavil PO 10 mg BID TRUDI Administration Apixaban 2.5 mg 10/12/18 10:00 10/15/18 21:16 Eliquis PO 2.5 mg Q12HR TRUDI Administration Protocol Dextrose 50 ml 10/11/18 22:22 D50w (25gm) Syringe IV PRN PRN Hypoglycemia Diphenhydramine HCl 25 mg 10/11/18 22:29 10/15/18 17:51 Benadryl IV 25 mg Q6H PRN Administration Itching Epoetin Samuel 20,000 unit 10/12/18 10:18 10/15/18 17:55 Procrit IV 20,000 unit ELANA PRN Administration hemodialysis Hydralazine HCl 50 mg 10/12/18 10:00 10/15/18 10:00 Apresoline PO Not Given BID TRUDI Sodium Chloride 100 mls @ 999 mls/hr 10/12/18 10:18 Nacl 0.9% IV ELANA PRN Hypotension Cefepime HCl 2 gm in 100 mls @ 200 mls/hr 10/15/18 04:00 10/16/18 03:57 Maxipime/Ns 2 Gm/100 Ml IV 200 mls/hr Q24H TRUDI Administration Protocol Insulin Human Lispro 0 unit 10/13/18 07:30 10/16/18 08:38 Humalog SUB-Q Not Given ACHS [facility] Protocol Labetalol HCl 100 mg 10/12/18 08:00 10/15/18 21:18 Normodyne PO 100 mg TID TRUDI Administration Labetalol HCl 200 mg 10/12/18 08:00 10/15/18 21:18 Normodyne PO 200 mg TID TRUDI Administration Lidocaine 1 each 10/14/18 11:00 10/15/18 21:20 Lidoderm 5% TD Not Given QDAY TRUDI Lorazepam 0.5 mg 10/12/18 15:40 10/12/18 18:07 Ativan PO 0.5 mg Q8HR PRN Administration N/V Unrelieved By zofran Losartan Potassium 50 mg 10/16/18 10:00 Cozaar PO QDAY TRUDI Ondansetron HCl 4 mg 10/11/18 22:22 10/14/18 15:26 Zofran IV 4 mg Q4H PRN Administration Nausea And Vomiting Pantoprazole Sodium 40 mg 10/12/18 16:00 10/15/18 21:15 Protonix IV 40 mg QDAY TRUDI Administration Sodium Chloride 10 ml 10/12/18 10:00 10/15/18 21:19 Sodium Chloride Flush Syringe 10 Ml IV 10 ml BID TRUDI Administration Sodium Chloride 10 ml 10/11/18 22:22 Sodium Chloride Flush Syringe 10 Ml IV PRN PRN LINE FLUSH Sucralfate 1 gm 10/12/18 18:00 10/16/18 05:50 Carafate PO 1 gm Q6HR TRUDI Administration
[2018-10-16] MEDS: ELIQUIS PO SCH ×2 (09:39→21:42)
[2018-10-16] MEDS: COZAAR PO SCH (09:39)
[2018-10-16] MEDS: ELAVIL PO SCH ×2 (09:40→21:42)
[2018-10-16] MEDS: PROTONIX IV SCH (09:40)
[2018-10-16] MEDS: APRESOLINE PO SCH ×2 (09:41→21:42)
[2018-10-16] MEDS: LIDODERM 5% TD SCH (09:41)
[2018-10-16] MEDS: SODIUM CHLORIDE FLUSH SYRINGE 10 ML IV SCH ×2 (09:42→21:44)
--- NOTE | 2018-10-16 10:37 | Progress Note ---
Assessment and Plan Cultures: Blood culture 10/11/2018 Enterobacter sensitive to cefepime 1 of 2 bottles. Blood culture 10/13/2018 no growth Vas Cath: 10/15/18: in progress Assessment: 37-year-old woman with a history with hypertension, diabetes complicated by gastroparesis, status post gastric pacemaker, ESRD on dialysis via left groin HD cath, s/p multiple failed HD accesses, recent left arm AVG s/p Left arm AV graft revision with open thrombectomy on 09/21/2018 which is currently clotted, had a right failed AVG, CVA, poor stick s/p port; admitted on 10/11/2018 due to 3-day history of N/V x multiple, abdominal pain and fever: 1) Sepsis:Resolved, Etiology most likely Enterobacter bacteremia. 2) Enterobacter bacteremia: patient with multiple possible source ? port, left groin HD cath, bilateral arms AVG with left arm AVG clotted and painful. S/p Left arm AV graft revision with open thrombectomy on 09/21/2018. CRP: 8.6 TTE - no valvular vegetation 3) N/V: ? gastroparesis. CT of the abdomen and pelvis was done which was negative. 4) Left Leg pain: Knee xray shows bony architecture is intact without evidence of fracture or dislocation. No significant soft tissue abnormality is seen. Left ankle xray shows No evidence for fracture, bone lesion or bony destruction. Mild degenerative changes. Recommendations: - follow-up repeat blood cultures - continue cefepime to 1 gm IV qday - will discuss with Vascular and Renal need to exchange left groin HD access - in light of many accesses that are unable to be removed will do ceftazidime (fortaz) on HD 2g on Monday, 2g on Monday and 3g on Monday for 3 weeks total, followed by surveillance blood cultures at 1 and 3 weeks after completed infusion ending 11-02-18 -order placed with case management [facility] M: [phone] O:[phone] Subjective Date of service: 10/16/18 Principal diagnosis: bacteremia Interval history: Patient was seen and examined. Denied generalized pain or SOB. No fevers. Objective - Exam Narrative Exam: General appearance: Alert in NAD, conversant morbdily obese Eyes: anicteric sclerae, moist conjunctivae; no lid-lag; PERRLA HENT: Atraumatic; oropharynx clear with moist mucous membranes and no mucosal ulcerations/no oral thrush; normal hard and soft palate. Normal external ears. Neck: Trachea midline; supple, no thyromegaly or lymphadenopathy Lungs: CTA, with normal respiratory effort and no intercostal retractions + right sided port CV: RRR, +murmurs Abdomen: Soft, non-tender; obese Extremities: toney leg edema, left groin HD cath, left arm AVG, no knee effusion Skin: Normal temperature, turgor and texture; no rash, ulcers or subcutaneous nodules Psych: Appropriate affect, alert and oriented to person, place and time. Neuro: alert and oriented x 3. Moving all extermities - Constitutional Vitals: Vital Signs Temp Pulse Resp BP Pulse Ox 98.8 F 88 18 167/86 100 10/16/18 07:32 10/16/18 09:41 10/16/18 07:32 10/16/18 09:41 10/16/18 09:58 Temperature -Last 24 Hours Temperature 98.8 F Temperature 97.9 F Temperature 98.2 F Temperature 98.2 F Temperature 98.2 F Temperature 98.7 F Temperature 98.6 F Temperature 98.2 F - Labs CBC & Chem 7: 10/16/18 05:55 10/16/18 05:55 Labs: Abnormal lab results 10/15/18 10/15/18 10/16/18 Range/Units 05:16 11:35 05:52 RBC (3.65-5.03) M/mm3 Hgb (10.1-14.3) gm/dl Hct (30.3-42.9) % RDW (13.2-15.2) % [place] % (Auto) (0.0-7.3) % BUN (7-17) mg/dL Creatinine (0.7-1.2) mg/dL POC Glucose 61 L 61 L (70-105) C-Reactive Protein 8.60 H (0.00-1.30) mg/dL 10/16/18 10/16/18 Range/Units 05:55 05:55 RBC 3.17 L (3.65-5.03) M/mm3 Hgb 9.7 L (10.1-14.3) gm/dl Hct 29.6 L (30.3-42.9) % RDW 17.2 H (13.2-15.2) % [place] % (Auto) 7.9 H (0.0-7.3) % BUN 21 H (7-17) mg/dL Creatinine 5.1 H (0.7-1.2) mg/dL POC Glucose (70-105) C-Reactive Protein (0.00-1.30) mg/dL
[2018-10-16] MEDS: TYLENOL PO PRN (12:47)
[2018-10-16] MEDS: DILAUDID IV PRN ×3 (13:03→23:26)
[2018-10-16] MEDS: ZOFRAN IV PRN ×3 (13:04→23:26)
[2018-10-16] MEDS: BENADRYL IV PRN (17:32)
--- NOTE | 2018-10-16 21:29 | Progress Note ---
Assessment and Plan Assessment and plan: 37-year-old woman with a history with hypertension, diabetes complicated by gastroparesis, status post gastric pacemaker, end-stage renal disease on dialysis, CVA, presented to emergency room with complaints of left upper quadrant pain, nausea vomiting 3 days. She was seen in the emergency room on 10/10/[address] of the abdomen and pelvis was done which was negative, she was discharged home. She continues to have vomiting so she returned to the emergency room for further evaluation. She saw the doctor for evaluation of her gastric pacemaker in September 12 in [place] and everything was okay, settings were increased. She did meet SIRS criteria, admitted for N/V and possible sepsis. Blood Cx grew gm -ve lex, vascular consulted for HD access. Sepsis with Gm negative bacteremia (Enterobacter [place]) Intractable nausea and vomiting was likely secondary to gastroparesis Hypertension, stable Diabetes complicated by gastroparesis End-stage renal disease on HD History of CVA Chronic Anticoagulation with eliquis Chronic neuropathic pain Clotted/malfunctioning left arm AVG Plan cont antibiotics/cefepime, noted final cultures result, repeat blood cx negative, consult ID for abx recommendation, ordered 2d echo, plan to change HD catheter today for bacteremia which was placed as alternative of AVG for HD vascular consulted for left arm AVG, planned for procedure this week - will follow vascular recommendation as patient now bacteremic cont anti-emetics, ativan po as needed for intractable gastropresis, minimize pain meds Consulted renal for dialysis Check fingersticks with insulin sliding scale DVT prophylaxis History Interval history: Patient seen and examined Hospitalist Physical - Physical exam Narrative exam: Physical exam: General Apperance: The patient lying in bed, breathing comfortable HEENT: Normocephalic, atraumatic. Pupils equally round and reactive to light, EOMI, no sclericterus or JVD or thyromegaly or nodule. , no carotid bruit, muco us membranes moist, no exudate or erythema Heart: S1-S2, regular is rhythm Lungs: Clear to auscultation bilaterally, breathing comfortable Abdomen: Positive bowel sounds, soft, nontender, nondistended, no organomegaly Extremities: No edema cyanosis clubbing Skin: no rash, nodule, warm and dry Neuro: cranial nerves 2-12 intact, speech is fluent, motor/sensory intact - Constitutional Vitals: Temp Pulse Resp BP Pulse Ox 98.3 F 83 18 148/79 98 10/16/18 15:23 10/16/18 15:24 10/16/18 15:23 10/16/18 15:23 10/16/18 15:24 Results - Labs CBC & Chem 7: 10/16/18 05:55 10/16/18 05:55 Labs: Laboratory Last Values WBC 7.6 K/mm3 (4.5-11.0) 10/16/18 05:55 RBC 3.17 M/mm3 (3.65-5.03) L 10/16/18 05:55 Hgb 9.7 gm/dl (10.1-14.3) L 10/16/18 05:55 Hct 29.6 % (30.3-42.9) L 10/16/18 05:55 MCV 94 fl (79-97) 10/16/18 05:55 MCH 31 pg (28-32) 10/16/18 05:55 MCHC 33 % (30-34) 10/16/18 05:55 RDW 17.2 % (13.2-15.2) H 10/16/18 05:55 Plt Count 289 K/mm3 (140-440) 10/16/18 05:55 Lymph % (Auto) 18.7 % (13.4-35.0) 10/16/18 05:55 [place] % (Auto) 7.9 % (0.0-7.3) H 10/16/18 05:55 Eos % (Auto) 3.2 % (0.0-4.3) 10/16/18 05:55 Baso % (Auto) 0.8 % (0.0-1.8) 10/16/18 05:55 Lymph # 1.4 K/mm3 (1.2-5.4) 10/16/18 05:55 [place] # 0.6 K/mm3 (0.0-0.8) 10/16/18 05:55 Eos # 0.2 K/mm3 (0.0-0.4) 10/16/18 05:55 Baso # 0.1 K/mm3 (0.0-0.1) 10/16/18 05:55 Add Manual Diff Complete 10/11/18 17:00 Total Counted 100 10/11/18 17:00 Seg Neutrophils % 69.4 % (40.0-70.0) 10/16/18 05:55 Seg Neuts % (Manual) 95.0 % (40.0-70.0) H 10/11/18 17:00 Band Neutrophils % 0 % 10/11/18 17:00 Lymphocytes % (Manual) 2.0 % (13.4-35.0) L 10/11/18 17:00 Reactive Lymphs % (Man) 0 % 10/11/18 17:00 Monocytes % (Manual) 2.0 % (0.0-7.3) 10/11/18 17:00 Eosinophils % (Manual) 1.0 % (0.0-4.3) 10/11/18 17:00 Basophils % (Manual) 0 % (0.0-1.8) 10/11/18 17:00 Metamyelocytes % 0 % 10/11/18 17:00 Myelocytes % 0 % 10/11/18 17:00 Promyelocytes % 0 % 10/11/18 17:00 Blast Cells % 0 % 10/11/18 17:00 Nucleated RBC % Not Reportable 10/11/18 17:00 Seg Neutrophils # 5.3 K/mm3 (1.8-7.7) 10/16/18 05:55 Seg Neutrophils # Man 5.4 K/mm3 (1.8-7.7) 10/11/18 17:00 Band Neutrophils # 0.0 K/mm3 10/11/18 17:00 Lymphocytes # (Manual) 0.1 K/mm3 (1.2-5.4) L 10/11/18 17:00 Abs React Lymphs (Man) 0.0 K/mm3 10/11/18 17:00 Monocytes # (Manual) 0.1 K/mm3 (0.0-0.8) 10/11/18 17:00 Eosinophils # (Manual) 0.1 K/mm3 (0.0-0.4) 10/11/18 17:00 Basophils # (Manual) 0.0 K/mm3 (0.0-0.1) 10/11/18 17:00 Metamyelocytes # 0.0 K/mm3 10/11/18 17:00 Myelocytes # 0.0 K/mm3 10/11/18 17:00 Promyelocytes # 0.0 K/mm3 10/11/18 17:00 Blast Cells # 0.0 K/mm3 10/11/18 17:00 WBC Morphology Not Reportable 10/11/18 17:00 Hypersegmented Neuts Not Reportable 10/11/18 17:00 Hyposegmented Neuts Not Reportable 10/11/18 17:00 Hypogranular Neuts Not Reportable 10/11/18 17:00 Smudge Cells Not Reportable 10/11/18 17:00 Toxic Granulation Not Reportable 10/11/18 17:00 Toxic Vacuolation Not Reportable 10/11/18 17:00 Dohle Bodies Not Reportable 10/11/18 17:00 Pelger-Huet Anomaly Not Reportable 10/11/18 17:00 Stevie Rods Not Reportable 10/11/18 17:00 Platelet Estimate Consistent w auto 10/11/18 17:00 Clumped Platelets Not Reportable 10/11/18 17:00 Plt Clumps, EDTA Not Reportable 10/11/18 17:00 Large Platelets Not Reportable 10/11/18 17:00 Giant Platelets Not Reportable 10/11/18 17:00 Platelet Satelliting Not Reportable 10/11/18 17:00 Plt Morphology Comment Not Reportable 10/11/18 17:00 RBC Morphology Normal 10/11/18 17:00 Dimorphic RBCs Not Reportable 10/11/18 17:00 Polychromasia Not Reportable 10/11/18 17:00 Hypochromasia Not Reportable 10/11/18 17:00 Poikilocytosis Not Reportable 10/11/18 17:00 Anisocytosis Not Reportable 10/11/18 17:00 Microcytosis Not Reportable 10/11/18 17:00 Macrocytosis Not Reportable 10/11/18 17:00 Spherocytes Not Reportable 10/11/18 17:00 Pappenheimer Bodies Not Reportable 10/11/18 17:00 Sickle Cells Not Reportable 10/11/18 17:00 Target Cells Not Reportable 10/11/18 17:00 Tear Drop Cells Not Reportable 10/11/18 17:00 Ovalocytes Not Reportable 10/11/18 17:00 Helmet Cells Not Reportable 10/11/18 17:00 [place] Bodies Not Reportable 10/11/18 17:00 [place] Rings Not Reportable 10/11/18 17:00 [place] Cells Not Reportable 10/11/18 17:00 Bite Cells Not Reportable 10/11/18 17:00 Crenated Cell Not Reportable 10/11/18 17:00 Elliptocytes Not Reportable 10/11/18 17:00 Acanthocytes (Spur) Not Reportable 10/11/18 17:00 Rouleaux Not Reportable 10/11/18 17:00 Hemoglobin C Crystals Not Reportable 10/11/18 17:00 Schistocytes Not Reportable 10/11/18 17:00 Malaria parasites Not Reportable 10/11/18 17:00 [place] Bodies Not Reportable 10/11/18 17:00 Hem Pathologist Commnt No 10/11/18 17:00 Sodium 140 mmol/L (137-145) 10/16/18 05:55 Potassium 3.6 mmol/L (3.6-5.0) 10/16/18 05:55 Chloride 100.7 mmol/L (98-107) 10/16/18 05:55 Carbon Dioxide 27 mmol/L (22-30) 10/16/18 05:55 Anion Gap 16 mmol/L 10/16/18 05:55 BUN 21 mg/dL (7-17) H 10/16/18 05:55 Creatinine 5.1 mg/dL (0.7-1.2) H 10/16/18 05:55 Estimated GFR 12 ml/min 10/16/18 05:55 BUN/Creatinine Ratio 4 % 10/16/18 05:55 Glucose 68 mg/dL (65-100) 10/16/18 05:55 POC Glucose 76 (70-105) 10/16/18 16:23 Lactic Acid 0.60 mmol/L (0.7-2.0) L 10/11/18 18:21 Calcium 8.5 mg/dL (8.4-10.2) 10/16/18 05:55 Magnesium 1.60 mg/dL (1.7-2.3) L 10/13/18 06:00 Total Bilirubin 0.40 mg/dL (0.1-1.2) 10/11/18 17:00 Direct Bilirubin < 0.2 mg/dL (0-0.2) 10/11/18 17:00 Indirect Bilirubin 0.2 mg/dL 10/11/18 17:00 AST 12 units/L (5-40) 10/11/18 17:00 ALT 5 units/L (7-56) L 10/11/18 17:00 Alkaline Phosphatase 100 units/L (35-129) 10/11/18 17:00 C-Reactive Protein 8.60 mg/dL (0.00-1.30) H 10/15/18 05:16 Total Protein 7.4 g/dL (6.3-8.2) 10/11/18 17:00 Albumin 3.4 g/dL (3.9-5) L 10/11/18 17:00 Albumin/Globulin Ratio 0.9 % 10/11/18 17:00 Lipase 7 units/L (13-60) L 10/11/18 17:00
[2018-10-17] MEDS ORDERED: PHENERGAN PR PRN (04:06)
[2018-10-17] MEDS: MAXIPIME/NS 2 GM/100 ML 2 GM/100 ML BAG IV SCH (04:26)
[2018-10-17] MEDS: ZOFRAN IV PRN (05:24)
[2018-10-17] MEDS: HumaLOG SUB-Q SCH ×3 (08:29→17:40)
--- NOTE | 2018-10-17 09:17 | Progress Note ---
Subjective Principal diagnosis: bacteremia Interval history: Patient was seen today for follow-up on multiple renal related issues She is currently status post permacath placement Receiving hemodialysis from her permacath Has limited vascular access agrees to see Dr. Ramos upon discharge Patient denies having any chest pain pressure or shortness of breath Vitals labs intake output medications were reviewed Social history: Reviewed Allergies: Reviewed Family history: Reviewed Physical examination HEENT: Oral mucosa moist no pallor or icterus Neck: Supple no JVD Chest: Clear to auscultation anteriorly CVS: Regular rate and rhythm S1 and S2 heard Abdomen: Soft nontender no suprapubic masses no organomegaly appreciable Extremity: Dry skin less than 1+ peripheral edema Swelling in the left leg Musculoskeletal: No joint effusion noted in knees and ankle Neurological: Alert awake Dermatology: No petechial rashes Psychiatry: No evidence of any agitation and aggression noted Assessment and plan ESRD continue with hemodialysis treatment 3 times per week, Monday which she seems to be tolerating well Limited vascular access, current access is a permacath Hypertension and volume appears to be stable Enterococcal Bacteremia infection sepsis currently afebrile patient will need antibiotic that needs to be arranged at the dialysis facility infectious disease we'll need to send order to the facility, that should be appearing by the digital media planner patient was made aware about this She will also need to make a follow-up appointment with her cat dog or other pet groomer upon discharge From dialysis standpoint her last hemoglobin was 9.7 current potassium 3.8 calcium is 9.0, PTH was 454 on 08/28/2018 B12 720 folic acid normal Malnutrition: Adequately counseled and educated Iron saturation 28% and generally 2019 Nausea vomiting with 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 Ramos her primary cat dog or other pet groomer upon discharge Long-term prognosis guarded to poor We'll continue to follow and make recommendation from renal standpoint Objective - Vital Signs Vital signs: Vital Signs - 12hr 10/16/18 10/16/18 10/17/18 21:33 23:51 05:12 Temperature 98.1 F 97.0 F L Pulse Rate 81 89 Respiratory 18 18 Rate Blood Pressure 150/86 151/74 O2 Sat by Pulse 99 95 98 Oximetry - Lab 10/16/18 05:55 10/17/18 04:00 Most recent lab results Calcium 9.0 mg/dL (8.4-10.2) 10/17/18 04:00 Magnesium 1.60 mg/dL (1.7-2.3) L 10/13/18 06:00 Medications & Allergies - Medications Allergies/Adverse Reactions: Allergies metformin Allergy (Verified 09/20/18 14:38) Hives metoclopramide HCl [From Reglan] Allergy (Verified 09/20/18 14:38) Hives prochlorperazine [From Compazine] Allergy (Verified 09/20/18 14:38) Hives prochlorperazine edisylate [From Compazine] Allergy (Verified 09/20/18 14:38) Hives prochlorperazine maleate [From Compazine] Allergy (Verified 09/20/18 14:38) Hives haloperidol [From Haldol] Adverse Reaction (Verified 09/20/18 14:38) Unknown PT STATES HER TEETH CHATTERED AND HER "EYES DRIFTED OFF" shellfish Allergy (Uncoded 09/20/18 14:38) Swelling Home Medications: Home Medications Medication Instructions Recorded Confirmed Last Taken Type RX: Apixaban [Eliquis] 2.5 mg PO Q12HR #60 tablet 08/04/18 10/11/18 09/14/18 Rx RX: Labetalol [Normodyne TAB] 300 mg PO TID #90 tablet 08/04/18 10/11/18 09/17/18 Rx RX: Amitriptyline [Elavil] 10 mg PO BID 10/11/18 10/11/18 Unknown History RX: Ondansetron [Zofran TAB] 4 mg PO Q6H 10/11/18 10/11/18 Unknown History RX: hydrALAZINE [Apresoline TAB] 50 mg PO BID 10/11/18 10/11/18 Unknown History RX: Acetaminophen [Acetaminophen 650 mg PO Q4H PRN #15 tablet 10/17/18 Unknown Rx TAB] RX: LORazepam [Ativan] 0.5 mg PO Q8HR PRN #90 tablet 10/17/18 Unknown Rx RX: Lispro Insulin [Humalog] 0 unit SUB-Q ACHS units 10/17/18 Unknown Rx RX: Losartan [Cozaar] 50 mg PO QDAY #30 tablet 10/17/18 Unknown Rx RX: Pantoprazole [Protonix TAB] 40 mg PO DAILY #30 tablet 10/17/18 Unknown Rx RX: Promethazine [Phenergan SUPPOS] 25 mg AL Q6H PRN #15 supp.rect 10/17/18 Unknown Rx RX: Sucralfate [Carafate] 1 gm PO Q6HR 30 Days #30 oral.liqd 10/17/18 Unknown Rx Active Medications: Generic Name Dose Route Start Last Admin Trade Name Freq PRN Reason Stop Dose Admin Acetaminophen 650 mg 10/11/18 22:22 10/14/18 10:27 Tylenol PO 650 mg Q4H PRN Administration Pain MILD(1-3)/Fever >100.5/CHAVES Albumin Human 25 gm 10/12/18 10:18 Alburx 25% (Albumin) IV ELANA PRN Hypotension Amitriptyline HCl 10 mg 10/12/18 10:00 10/16/18 21:42 Elavil PO 10 mg BID TRUDI Administration Apixaban 2.5 mg 10/12/18 10:00 10/16/18 21:42 Eliquis PO 2.5 mg Q12HR TRUDI Administration Protocol Dextrose 50 ml 10/11/18 22:22 D50w (25gm) Syringe IV PRN PRN Hypoglycemia Diphenhydramine HCl 25 mg 10/11/18 22:29 10/16/18 17:32 Benadryl IV 25 mg Q6H PRN Administration Itching Epoetin Samuel 20,000 unit 10/12/18 10:18 10/15/18 17:55 Procrit IV 20,000 unit ELANA PRN Administration hemodialysis Hydralazine HCl 50 mg 10/12/18 10:00 10/16/18 21:42 Apresoline PO 50 mg BID TRUDI Administration Hydromorphone HCl 1 mg 10/16/18 12:02 10/16/18 23:26 Dilaudid IV 1 mg Q4H PRN Administration Pain , Severe (7-10) Sodium Chloride 100 mls @ 999 mls/hr 10/12/18 10:18 Nacl 0.9% IV ELANA PRN Hypotension Cefepime HCl 2 gm in 100 mls @ 200 mls/hr 10/15/18 04:00 10/17/18 04:26 Maxipime/Ns 2 Gm/100 Ml IV 200 mls/hr Q24H TRUDI Administration Protocol Insulin Human Lispro 0 unit 10/13/18 07:30 10/17/18 08:29 Humalog SUB-Q Not Given ACHS TRUDI Protocol Labetalol HCl 100 mg 10/12/18 08:00 10/16/18 21:43 Normodyne PO 100 mg TID TRUDI Administration Labetalol HCl 200 mg 10/12/18 08:00 10/16/18 21:42 Normodyne PO 200 mg TID TRUDI Administration Lidocaine 1 each 10/14/18 11:00 10/16/18 09:41 Lidoderm 5% TD 1 each QDAY TRUDI Administration Lorazepam 0.5 mg 10/12/18 15:40 10/12/18 18:07 Ativan PO 0.5 mg Q8HR PRN Administration N/V Unrelieved By zofran Losartan Potassium 50 mg 10/16/18 10:00 10/16/18 09:39 Cozaar PO 50 mg QDAY TRUDI Administration Ondansetron HCl 4 mg 10/11/18 22:22 10/17/18 05:24 Zofran IV 4 mg Q4H PRN Administration Nausea And Vomiting Pantoprazole Sodium 40 mg 10/17/18 10:00 Protonix PO DAILY TRUDI Promethazine HCl 25 mg 10/17/18 04:06 10/17/18 04:26 Phenergan AL 25 mg Q6H PRN Administration Nausea And Vomiting Sodium Chloride 10 ml 10/12/18 10:00 10/16/18 21:44 Sodium Chloride Flush Syringe 10 Ml IV 10 ml BID TRUDI Administration Sodium Chloride 10 ml 10/11/18 22:22 Sodium Chloride Flush Syringe 10 Ml IV PRN PRN LINE FLUSH Sucralfate 1 gm 10/12/18 18:00 10/16/18 23:34 Carafate PO 1 gm Q6HR TRUDI Administration
--- NOTE | 2018-10-17 09:47 | Progress Note ---
Assessment and Plan Cultures: Blood culture 10/11/2018 Enterobacter sensitive to cefepime 1 of 2 bottles. Blood culture 10/13/2018 no growth Vas Cath: 10/15/18: in progress Assessment: 37-year-old woman with a history with hypertension, diabetes complicated by gastroparesis, status post gastric pacemaker, ESRD on dialysis via left groin HD cath, s/p multiple failed HD accesses, recent left arm AVG s/p Left arm AV graft revision with open thrombectomy on 09/21/2018 which is currently clotted, had a right failed AVG, CVA, poor stick s/p port; admitted on 10/11/2018 due to 3-day history of N/V x multiple, abdominal pain and fever: 1) Sepsis:Resolved, Etiology most likely Enterobacter bacteremia. 2) Enterobacter bacteremia: patient with multiple possible source ? port, left groin HD cath, bilateral arms AVG with left arm AVG clotted and painful. S/p Left arm AV graft revision with open thrombectomy on 09/21/2018. CRP: 8.6 TTE - no valvular vegetation 3) N/V: ? gastroparesis. CT of the abdomen and pelvis was done which was negative. 4) Left Leg pain: Knee xray shows bony architecture is intact without evidence of fracture or dislocation. No significant soft tissue abnormality is seen. Left ankle xray shows No evidence for fracture, bone lesion or bony destruction. Mild degenerative changes. Recommendations: - follow-up repeat blood cultures - continue cefepime to 1 gm IV qday - HD cath was exchanged by Vascular - in light of many accesses that are unable to be removed will do ceftazidime (fortaz) on HD 2g on Monday, 2g on Monday and 3g on Monday for 3 weeks total, followed by surveillance blood cultures at 1 and 3 weeks after completed infusion ending 11-02-18 -order placed with case management [facility] M: [phone] O:[phone] Subjective Date of service: 10/17/18 Principal diagnosis: bacteremia Interval history: Patient was seen and examined. Denied generalized pain or SOB. No fevers. Objective - Exam Narrative Exam: General appearance: Alert in NAD, conversant morbdily obese Eyes: anicteric sclerae, moist conjunctivae; no lid-lag; PERRLA HENT: Atraumatic; oropharynx clear with moist mucous membranes and no mucosal ulcerations/no oral thrush; normal hard and soft palate. Normal external ears. Neck: Trachea midline; supple, no thyromegaly or lymphadenopathy Lungs: CTA, with normal respiratory effort and no intercostal retractions + right sided port CV: RRR, +murmurs Abdomen: Soft, non-tender; obese Extremities: toney leg edema, left groin HD cath, left arm AVG, no knee effusion Skin: Normal temperature, turgor and texture; no rash, ulcers or subcutaneous nodules Psych: Appropriate affect, alert and oriented to person, place and time. Neuro: alert and oriented x 3. Moving all extermities - Constitutional Vitals: Vital Signs Temp Pulse Resp BP Pulse Ox 97.0 F L 89 18 151/74 98 10/17/18 05:12 10/17/18 05:12 10/17/18 05:12 10/17/18 05:12 10/17/18 05:12 Temperature -Last 24 Hours Temperature 97.0 F Temperature 98.1 F Temperature 98.3 F Temperature 98.3 F Temperature 98.9 F - Labs CBC & Chem 7: 10/16/18 05:55 10/17/18 04:00 Labs: Abnormal lab results 10/17/18 10/17/18 Range/Units 04:00 05:26 BUN 24 H (7-17) mg/dL Creatinine 6.5 H (0.7-1.2) mg/dL POC Glucose 65 L (70-105)
[2018-10-17] MEDS ORDERED: PROTONIX PO SCH (10:00)
[2018-10-17] MEDS: ELIQUIS PO SCH (14:43)
[2018-10-17] MEDS: NORMODYNE PO SCH ×4 (14:43→14:46)
[2018-10-17] MEDS: ELAVIL PO SCH (14:43)
[2018-10-17] MEDS: CARAFATE PO SCH ×3 (14:44→17:38)
[2018-10-17] MEDS: APRESOLINE PO SCH (14:44)
[2018-10-17] MEDS: LIDODERM 5% TD SCH (14:46)
[2018-10-17] MEDS: SODIUM CHLORIDE FLUSH SYRINGE 10 ML IV SCH (14:47)
--- NOTE | 2018-10-17 15:22 | Discharge Summary ---
Providers - Providers Date of Admission: 10/11/18 22:22 Date of discharge: 10/17/18 Attending physician: VALERIA KAMARA 10/12/18 01:52 Consult to Physician [CONS] Routine Comment: Consulting Provider: ERLINDA HERNANDEZ Physician Instructions: Reason For Exam: hd 10/12/18 07:56 Consult to Wound/ET Nurse [CONS] Routine Reason For Exam: wound eval 10/16/18 16:55 Consult to Case Management [CONS] Urgent Services Needed at Discharge: Home Health Services Other Notified:: no Additional Physician Instructions: [facility] M [phone] O [phone] F [phone] OUTPATIENT PARENTERAL ANTIBIOTIC THERAPY ORDERS Diagnoses: Enterobacter Bacteremia Antimicrobial administration: in light of many accesses that are unable to be removed will do ceftazidime (fortaz) on HD 2g on Monday, 2g on Monday and 3g on Monday for 3 weeks total, followed by surveillance blood cultures at 1 and 3 weeks after completed infusion ending 11-02-18 Lab monitoring: CBC, ALT, AST, once a week preferly on Monday morning. Please fax results to [phone] and call [phone] for critical lab results. Zhang is a Patient of [facility], whe will need to follow-up with Dr. Ramos who is her primary carpenter cradle and dolly. 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 She was seen in the emergency room on 10/10/[address] of the abdomen and pelvis was done which was negative, she was discharged home. She continued to have vomiting so she returned to the emergency room for further evaluation. She saw the doctor for evaluation of her gastric pacemaker in September 12 in [place] and everything was okay, settings were increased. She did meet SIRS criteria, admitted for N/V and possible sepsis. Blood Cx grew gm - ve lex, vascular consulted for HD access. Sepsis with Gm negative bacteremia (Enterobacter Cloacae): ID has made final recommendations, abx with HD setup, Left groin HD catheter changed on 10/15/2018 Intractable nausea and vomiting was likely secondary to gastroparesis and patient was found to gag herself with her finger (pt stuck finger in her throat to induce vomiting) Hypertension, stable Diabetes complicated by gastroparesis End-stage renal disease on HD History of CVA Chronic Anticoagulation with eliquis Chronic neuropathic pain Clotted/malfunctioning left arm AVG Disposition: DC/TX- HOME UNDER HOME HLTH Time spent for discharge: 35 minutes Core Measure Documentation - Palliative Care Palliative Care/ Comfort Measures: Not Applicable - Core Measures Any of the following diagnoses?: none - VTE Discharge Requirements Deep Vein Thrombosis/Pulmonary Embolism Present on Admission: No Has pt received <5 days of overlap therapy or INR<2.0: No Anticoagulant overlap therapy prescribed at discharge: No Contraindication No Overlap Therapy order at DC: Not Indicated Exam - Physical Exam Narrative exam: General Apperance: The patient lying in bed, breathing comfortable HEENT: Normocephalic, atraumatic. Pupils equally round and reactive to light, EOMI, no sclericterus or JVD or thyromegaly or nodule. , no carotid bruit, mucous membranes moist, no exudate or erythema Heart: S1-S2, regular is rhythm Lungs: Clear to auscultation bilaterally, breathing comfortable Abdomen: Positive bowel sounds, soft, nontender, nondistended, no organomegaly Extremities: No edema cyanosis clubbing, contracture legs Skin: no rash, nodule, warm and dry Neuro: cranial nerves 2-12 intact, speech is fluent, motor/sensory intact Psych: calm, denies SI/HI - Constitutional Vitals: Temp Pulse Resp BP Pulse Ox 97.0 F L 93 H 18 169/82 100 10/17/18 09:35 10/17/18 13:43 10/17/18 09:35 10/17/18 13:43 10/17/18 10:00 Plan Activity: other (no strenous activity) Diet: diabetic, renal Follow up with: PRIMARY CARE, [Primary Care Provider] - 3-5 Days ERLINDA HERNANDEZ MD [Staff Physician] - 7 Days VALERIA KAMARA MD [Staff Physician] - 7 Days Prescriptions: LORazepam [Ativan] 0.5 mg PO Q8HR PRN #90 tablet PRN Reason: N/V Unrelieved By renan Losartan [Cozaar] 50 mg PO QDAY #30 tablet Pantoprazole [Protonix TAB] 40 mg PO DAILY #30 tablet Promethazine [Phenergan SUPPOS] 25 mg AR Q6H PRN #15 supp.rect PRN Reason: Nausea And Vomiting Sucralfate [Carafate] 1 gm PO Q6HR 30 Days #30 oral.liqd
--- NOTE | 2018-10-17 15:32 | Progress Note ---
Assessment and Plan Assessment and plan: 37-year-old woman with a history with hypertension, diabetes complicated by gastroparesis, status post gastric pacemaker, end-stage renal disease on dialysis, CVA, presented to emergency room with complaints of left upper quadrant pain, nausea vomiting 3 days. She was seen in the emergency room on 10/10/[address] of the abdomen and pelvis was done which was negative, she was discharged home. She continues to have vomiting so she returned to the emergency room for further evaluation. She saw the doctor for evaluation of her gastric pacemaker in September 12 in [place] and everything was okay, settings were increased. She did meet SIRS criteria, admitted for N/V and possible sepsis. Blood Cx grew gm -ve lex, vascular consulted for HD access. Sepsis with Gm negative bacteremia (Enterobacter Cloacae) Intractable nausea and vomiting was likely secondary to gastroparesis Hypertension, stable Diabetes complicated by gastroparesis End-stage renal disease on HD History of CVA Chronic Anticoagulation with eliquis Chronic neuropathic pain Clotted/malfunctioning left arm AVG Plan cont antibiotics/cefepime, noted final cultures result, repeat blood cx negative, consult ID for abx recommendation, ordered 2d echo, plan to change HD catheter today for bacteremia which was placed as alternative of AVG for HD vascular consulted for left arm AVG, planned for procedure this week - will follow vascular recommendation as patient now bacteremic cont anti-emetics, ativan po as needed for intractable gastropresis, minimize pain meds Consulted renal for dialysis Check fingersticks with insulin sliding scale DVT prophylaxis History Interval history: Patient seen and examined Hospitalist Physical - Physical exam Narrative exam: General Apperance: The patient lying in bed, breathing comfortable HEENT: Normocephalic, atraumatic. Pupils equally round and reactive to light, EOMI, no sclericterus or JVD or thyromegaly or nodule. , no carotid bruit, mucous membranes moist, no exudate or erythema Heart: S1-S2, regular is rhythm Lungs: Clear to auscultation bilaterally, breathing comfortable Abdomen: Positive bowel sounds, soft, nontender, nondistended, no organomegaly Extremities: No edema cyanosis clubbing, contracture legs Skin: no rash, nodule, warm and dry Neuro: cranial nerves 2-12 intact, speech is fluent, motor/sensory intact Psych: calm, denies SI/HI - Constitutional Vitals: Temp Pulse Resp BP Pulse Ox 97.0 F L 93 H 18 169/82 100 10/17/18 09:35 10/17/18 13:43 10/17/18 09:35 10/17/18 13:43 10/17/18 10:00 Results - Labs CBC & Chem 7: 10/16/18 05:55 10/17/18 04:00 Labs: Laboratory Last Values WBC 7.6 K/mm3 (4.5-11.0) 10/16/18 05:55 RBC 3.17 M/mm3 (3.65-5.03) L 10/16/18 05:55 Hgb 9.7 gm/dl (10.1-14.3) L 10/16/18 05:55 Hct 29.6 % (30.3-42.9) L 10/16/18 05:55 MCV 94 fl (79-97) 10/16/18 05:55 MCH 31 pg (28-32) 10/16/18 05:55 MCHC 33 % (30-34) 10/16/18 05:55 RDW 17.2 % (13.2-15.2) H 10/16/18 05:55 Plt Count 289 K/mm3 (140-440) 10/16/18 05:55 Lymph % (Auto) 18.7 % (13.4-35.0) 10/16/18 05:55 Maury % (Auto) 7.9 % (0.0-7.3) H 10/16/18 05:55 Eos % (Auto) 3.2 % (0.0-4.3) 10/16/18 05:55 Baso % (Auto) 0.8 % (0.0-1.8) 10/16/18 05:55 Lymph # 1.4 K/mm3 (1.2-5.4) 10/16/18 05:55 Maury # 0.6 K/mm3 (0.0-0.8) 10/16/18 05:55 Eos # 0.2 K/mm3 (0.0-0.4) 10/16/18 05:55 Baso # 0.1 K/mm3 (0.0-0.1) 10/16/18 05:55 Add Manual Diff Complete 10/11/18 17:00 Total Counted 100 10/11/18 17:00 Seg Neutrophils % 69.4 % (40.0-70.0) 10/16/18 05:55 Seg Neuts % (Manual) 95.0 % (40.0-70.0) H 10/11/18 17:00 Band Neutrophils % 0 % 10/11/18 17:00 Lymphocytes % (Manual) 2.0 % (13.4-35.0) L 10/11/18 17:00 Reactive Lymphs % (Man) 0 % 10/11/18 17:00 Monocytes % (Manual) 2.0 % (0.0-7.3) 10/11/18 17:00 Eosinophils % (Manual) 1.0 % (0.0-4.3) 10/11/18 17:00 Basophils % (Manual) 0 % (0.0-1.8) 10/11/18 17:00 Metamyelocytes % 0 % 10/11/18 17:00 Myelocytes % 0 % 10/11/18 17:00 Promyelocytes % 0 % 10/11/18 17:00 Blast Cells % 0 % 10/11/18 17:00 Nucleated RBC % Not Reportable 10/11/18 17:00 Seg Neutrophils # 5.3 K/mm3 (1.8-7.7) 10/16/18 05:55 Seg Neutrophils # Man 5.4 K/mm3 (1.8-7.7) 10/11/18 17:00 Band Neutrophils # 0.0 K/mm3 10/11/18 17:00 Lymphocytes # (Manual) 0.1 K/mm3 (1.2-5.4) L 10/11/18 17:00 Abs React Lymphs (Man) 0.0 K/mm3 10/11/18 17:00 Monocytes # (Manual) 0.1 K/mm3 (0.0-0.8) 10/11/18 17:00 Eosinophils # (Manual) 0.1 K/mm3 (0.0-0.4) 10/11/18 17:00 Basophils # (Manual) 0.0 K/mm3 (0.0-0.1) 10/11/18 17:00 Metamyelocytes # 0.0 K/mm3 10/11/18 17:00 Myelocytes # 0.0 K/mm3 10/11/18 17:00 Promyelocytes # 0.0 K/mm3 10/11/18 17:00 Blast Cells # 0.0 K/mm3 10/11/18 17:00 WBC Morphology Not Reportable 10/11/18 17:00 Hypersegmented Neuts Not Reportable 10/11/18 17:00 Hyposegmented Neuts Not Reportable 10/11/18 17:00 Hypogranular Neuts Not Reportable 10/11/18 17:00 Smudge Cells Not Reportable 10/11/18 17:00 Toxic Granulation Not Reportable 10/11/18 17:00 Toxic Vacuolation Not Reportable 10/11/18 17:00 Dohle Bodies Not Reportable 10/11/18 17:00 Pelger-Huet Anomaly Not Reportable 10/11/18 17:00 Stevie Rods Not Reportable 10/11/18 17:00 Platelet Estimate Consistent w auto 10/11/18 17:00 Clumped Platelets Not Reportable 10/11/18 17:00 Plt Clumps, EDTA Not Reportable 10/11/18 17:00 Large Platelets Not Reportable 10/11/18 17:00 Giant Platelets Not Reportable 10/11/18 17:00 Platelet Satelliting Not Reportable 10/11/18 17:00 Plt Morphology Comment Not Reportable 10/11/18 17:00 RBC Morphology Normal 10/11/18 17:00 Dimorphic RBCs Not Reportable 10/11/18 17:00 Polychromasia Not Reportable 10/11/18 17:00 Hypochromasia Not Reportable 10/11/18 17:00 Poikilocytosis Not Reportable 10/11/18 17:00 Anisocytosis Not Reportable 10/11/18 17:00 Microcytosis Not Reportable 10/11/18 17:00 Macrocytosis Not Reportable 10/11/18 17:00 Spherocytes Not Reportable 10/11/18 17:00 Pappenheimer Bodies Not Reportable 10/11/18 17:00 Sickle Cells Not Reportable 10/11/18 17:00 Target Cells Not Reportable 10/11/18 17:00 Tear Drop Cells Not Reportable 10/11/18 17:00 Ovalocytes Not Reportable 10/11/18 17:00 Helmet Cells Not Reportable 10/11/18 17:00 [place] Bodies Not Reportable 10/11/18 17:00 [place] Rings Not Reportable 10/11/18 17:00 [place] Cells Not Reportable 10/11/18 17:00 Bite Cells Not Reportable 10/11/18 17:00 Crenated Cell Not Reportable 10/11/18 17:00 Elliptocytes Not Reportable 10/11/18 17:00 Acanthocytes (Spur) Not Reportable 10/11/18 17:00 Rouleaux Not Reportable 10/11/18 17:00 Hemoglobin C Crystals Not Reportable 10/11/18 17:00 Schistocytes Not Reportable 10/11/18 17:00 Malaria parasites Not Reportable 10/11/18 17:00 Elliott Bodies Not Reportable 10/11/18 17:00 Hem Pathologist Commnt No 10/11/18 17:00 Sodium 140 mmol/L (137-145) 10/17/18 04:00 Potassium 3.8 mmol/L (3.6-5.0) 10/17/18 04:00 Chloride 101.2 mmol/L (98-107) 10/17/18 04:00 Carbon Dioxide 24 mmol/L (22-30) 10/17/18 04:00 Anion Gap 19 mmol/L 10/17/18 04:00 BUN 24 mg/dL (7-17) H 10/17/18 04:00 Creatinine 6.5 mg/dL (0.7-1.2) H 10/17/18 04:00 Estimated GFR 9 ml/min 10/17/18 04:00 BUN/Creatinine Ratio 4 % 10/17/18 04:00 Glucose 76 mg/dL (65-100) 10/17/18 04:00 POC Glucose 65 (70-105) L 10/17/18 05:26 Lactic Acid 0.60 mmol/L (0.7-2.0) L 10/11/18 18:21 Calcium 9.0 mg/dL (8.4-10.2) 10/17/18 04:00 Magnesium 1.60 mg/dL (1.7-2.3) L 10/13/18 06:00 Total Bilirubin 0.40 mg/dL (0.1-1.2) 10/11/18 17:00 Direct Bilirubin < 0.2 mg/dL (0-0.2) 10/11/18 17:00 Indirect Bilirubin 0.2 mg/dL 10/11/18 17:00 AST 12 units/L (5-40) 10/11/18 17:00 ALT 5 units/L (7-56) L 10/11/18 17:00 Alkaline Phosphatase 100 units/L (35-129) 10/11/18 17:00 C-Reactive Protein 8.60 mg/dL (0.00-1.30) H 10/15/18 05:16 Total Protein 7.4 g/dL (6.3-8.2) 10/11/18 17:00 Albumin 3.4 g/dL (3.9-5) L 10/11/18 17:00 Albumin/Globulin Ratio 0.9 % 10/11/18 17:00 Lipase 7 units/L (13-60) L 10/11/18 17:00
[2018-10-17 17:05] VITALS: BP 159/81
[2018-10-17] MEDS: COZAAR PO SCH (17:41)
== END 2018-10-17 20:45 | disposition home health service (06) | DRG 853 ==
LOC: ED 15:38 → 3A 22:22 → 4A 23:52
PROVIDERS: ADMIT Internal Medicine; ATTEND Internal Medicine
PROC: 5A1D70Z Performance of Urinary Filtration, Intermittent, Less than 6 Hours Per Day (ICD-10-PCS; 2018-10-12)
PROC: 067G3ZZ Dilation of Left External Iliac Vein, Percutaneous Approach (ICD-10-PCS; principal; 2018-10-15)
PROC: 067D3ZZ Dilation of Left Common Iliac Vein, Percutaneous Approach (ICD-10-PCS; 2018-10-15)
PROC: 06703ZZ Dilation of Inferior Vena Cava, Percutaneous Approach (ICD-10-PCS; 2018-10-15)
PROC: 5A1D70Z Performance of Urinary Filtration, Intermittent, Less than 6 Hours Per Day (ICD-10-PCS; 2018-10-15)
PROC: 0JPT3XZ Removal of Tunneled Vascular Access Device from Trunk Subcutaneous Tissue and Fascia, Percutaneous Approach (ICD-10-PCS; 2018-10-15)
PROC: 0JH63XZ Insertion of Tunneled Vascular Access Device into Chest Subcutaneous Tissue and Fascia, Percutaneous Approach (ICD-10-PCS; 2018-10-15)
PROC: 02PY33Z Removal of Infusion Device from Great Vessel, Percutaneous Approach (ICD-10-PCS; 2018-10-15)
PROC: 06HY33Z Insertion of Infusion Device into Lower Vein, Percutaneous Approach (ICD-10-PCS; 2018-10-15)
PROC: B51C1ZA Fluoroscopy of Left Lower Extremity Veins using Low Osmolar Contrast, Guidance (ICD-10-PCS; 2018-10-15)
PROC: B5191ZZ Fluoroscopy of Inferior Vena Cava using Low Osmolar Contrast (ICD-10-PCS; 2018-10-15)
PROC: B51C1ZZ Fluoroscopy of Left Lower Extremity Veins using Low Osmolar Contrast (ICD-10-PCS; 2018-10-15)
PROC: 5A1D70Z Performance of Urinary Filtration, Intermittent, Less than 6 Hours Per Day (ICD-10-PCS; 2018-10-17)
DX: A41.59 Other Gram-negative sepsis (principal); N18.6 End stage renal disease; N25.81 Secondary hyperparathyroidism of renal origin; T82.898A Other specified complication of vascular prosthetic devices, implants and grafts, initial encounter; K31.84 Gastroparesis; R65.10 Systemic inflammatory response syndrome (SIRS) of non-infectious origin without acute organ dysfunction; D63.1 Anemia in chronic kidney disease; B96.89 Other specified bacterial agents as the cause of diseases classified elsewhere; E11.43 Type 2 diabetes mellitus with diabetic autonomic (poly)neuropathy; Z96.89 Presence of other specified functional implants; Y83.2 Surgical operation with anastomosis, bypass or graft as the cause of abnormal reaction of the patient, or of later complication, without mention of misadventure at the time of the procedure; D64.9 Anemia, unspecified; Z99.2 Dependence on renal dialysis; Z82.49 Family history of ischemic heart disease and other diseases of the circulatory system; Z90.49 Acquired absence of other specified parts of digestive tract; Z95.828 Presence of other vascular implants and grafts; Z88.8 Allergy status to other drugs, medicaments and biological substances; Z79.01 Long term (current) use of anticoagulants; Z91.013 Allergy to seafood; Z79.899 Other long term (current) drug therapy; I69.398 Other sequelae of cerebral infarction; Y92.098 Other place in other non-institutional residence as the place of occurrence of the external cause; Z79.84 Long term (current) use of oral hypoglycemic drugs
CPT/HCPCS: 36415; 36581; 37248; 37249; 71045; 74176; 77001; 80048; 80053; 80076; 82140; 82962; 83690; 83735; 85007; 85025; 86140; 87040; 87076; 87116; 87186; 93308; 93321; 93325; 93925; 94760; 96374; 96375; 96376; G0378; C1725; C1750; C1769; C9113; J0690; J0692; J0696; J0885; J1170; J1200; J1644; J2250; J2270; J2405; J2543; J3010; J3370; J3480; J7030; J7040; J7050; Q9967

== ENCOUNTER 2018-10-22 09:55 | Day surgery (SDC) | payer MEDICARE ==
[2018-10-22] MEDS ORDERED: NACL 0.9% 500 ML 500 ML IV SCH (11:00)
[2018-10-22 12:52] LABS: Hematocrit 34.9 % (30.3-42.9); Hemoglobin 11.1 gm/dl (10.1-14.3); Mean Corpuscular HGB Conc 32 % (30-34); Mean Corpuscular Volume 96 fl (79-97); Platelet Count 365 K/mm3 (140-440); Red Blood Count 3.65 M/mm3 (3.65-5.03); Red Cell Distribution Width 19.2 % (13.2-15.2)
[2018-10-22] MEDS ORDERED: XYLOCAINE 2% INFILTRATI ONE (12:55)
[2018-10-22] MEDS ORDERED: ANCEF/STERILE WATER 2 GM/20 ML 2 GM/20 ML SYRINGE IV ONE (12:55)
[2018-10-22] MEDS ORDERED: HEPARIN/NS 5000 UNIT/500ML(CATH LAB) 1,000 ML IR ONE (12:55)
[2018-10-22] MEDS ORDERED: HEPARIN 10,000 UNITS/10 ML ONE (12:55)
[2018-10-22] MEDS ORDERED: ZOFRAN IV ONE (13:10)
[2018-10-22] MEDS: SUBLIMAZE ONE ×4 (13:32→14:01)
[2018-10-22] MEDS: VERSED ONE ×4 (13:32→14:01)
--- NOTE | 2018-10-22 14:26 | Short Stay Summary ---
Short Stay Documentation Date of service: 10/22/18 - History H&P: dictated (done in the chart) Past Medical History: diabetes, ESRD, hypertension Past Surgical History: Other (chemport, gastric pacemaker, AVG) - Allergies and Medications Current Medications: Allergies metformin Allergy (Verified 09/20/18 14:38) Hives metoclopramide HCl [From Reglan] Allergy (Verified 09/20/18 14:38) Hives prochlorperazine [From Compazine] Allergy (Verified 09/20/18 14:38) Hives prochlorperazine edisylate [From Compazine] Allergy (Verified 09/20/18 14:38) Hives prochlorperazine maleate [From Compazine] Allergy (Verified 09/20/18 14:38) Hives haloperidol [From Haldol] Adverse Reaction (Verified 09/20/18 14:38) Unknown PT STATES HER TEETH CHATTERED AND HER "EYES DRIFTED OFF" shellfish Allergy (Uncoded 09/20/18 14:38) Swelling Home Medications Medication Instructions Recorded Confirmed Last Taken Type Apixaban [Eliquis] 2.5 mg PO Q12HR #60 tablet 08/04/18 10/22/18 10/21/18 Rx 1 tab Labetalol [Normodyne TAB] 300 mg PO TID #90 tablet 08/04/18 10/22/18 10/22/18 Rx 1 tab Amitriptyline [Elavil] 10 mg PO BID 10/11/18 10/22/18 10/21/18 History 1 tab Ondansetron [Zofran TAB] 4 mg PO Q6H 10/11/18 10/22/18 10/21/18 History 1 tab hydrALAZINE [Apresoline TAB] 50 mg PO BID 10/11/18 10/22/18 10/21/18 History 1 tab Acetaminophen [Acetaminophen TAB] 650 mg PO Q4H PRN #15 tablet 10/17/18 10/22/18 10/21/18 Rx 1 tab LORazepam [Ativan] 0.5 mg PO Q8HR PRN #90 tablet 10/17/18 10/22/18 10/21/18 Rx 1 tab Lispro Insulin [Humalog] 0 unit SUB-Q ACHS units 10/17/18 10/22/18 10/21/18 Rx 0 Losartan [Cozaar] 50 mg PO QDAY #30 tablet 10/17/18 10/22/18 10/21/18 Rx 1 tab Pantoprazole [Protonix TAB] 40 mg PO DAILY #30 tablet 10/17/18 10/22/18 10/21/18 Rx 1 tab Promethazine [Phenergan SUPPOS] 25 mg [place] Q6H PRN #15 supp.rect 10/17/18 10/22/18 10/21/18 Rx 1 supp Sucralfate [Carafate] 1 gm PO Q6HR 30 Days #30 oral.liqd 10/17/18 10/22/18 10/21/18 Rx 1 gm Active Medications Sodium Chloride (Nacl 0.9% 500 Ml) 500 mls @ 50 mls/hr IV DIRECT TRUDI - Brief post op/procedure progress note Date of procedure: 10/22/18 Pre-op diagnosis: AV graft thrombosis Post-op diagnosis: same Procedure: attempted left UE AV graft thrombectomy Anesthesia: MAC Findings: central vein occlusion beyond left subclavian Surgeon: DOLORES LEO Estimated blood loss: none Condition: stable - Disposition Condition at discharge: Fair Disposition: DC-01 TO HOME OR SELFCARE Short Stay Discharge Plan Diet: renal Wound: keep clean and dry Follow up with: JUAN BURTON MD [Primary Care Provider] - 7 Days DOLORES LEO DO [Staff Physician] - 7 Days
[2018-10-22] MEDS ORDERED: FLUSH HEPARIN IV ONE (14:55)
[2018-10-22] MEDS ORDERED: PERCOCET 5/325 PO ONE (15:19)
[2018-10-22 15:58] VITALS: BP 121/69
--- NOTE | 2018-11-01 17:38 | Operative Report ---
Operative Report Operative Report: Operative note: Date: 10/22/2018 Preoperative diagnosis: Thrombosed AV access Postoperative diagnosis: Same. Operation: Attempted thrombectomy, venogram Surgeon: January Guerrero. Asst.: None Anesthesia: Local with moderate sedation. 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 All risks, benefits and alternatives of procedure were discussed patient, she chose to proceed and signed informed consent Operative details: Patient was brought to the Rn Procedures and placed in supine position. Left upper extremity was prepped and debrided sterile fashion. Using micropuncture technique and a graft was accessed in the venous direction and changed to a 6 [place] access sheath. Wire was advanced through venous anastomosis into subclavian vein and couldn't be advanced further. Vertebral catheter was inserted and positioned there. Venogram was performed showing venous occlusion just beyond subclavian vein. Thrombectomy of AV graft at this point became unreasonable, it will fail without outflow. Patient will be brought for vein mapping was placement of new permanent access most likely as at high graft.
== END 2018-10-22 16:48 | disposition home or self-care (01) ==
LOC: CATHLABREC 09:55
PROVIDERS: ATTEND Surgery Vascular Surgery
DX: T82.868A Thrombosis due to vascular prosthetic devices, implants and grafts, initial encounter (principal); N18.6 End stage renal disease; I12.0 Hypertensive chronic kidney disease with stage 5 chronic kidney disease or end stage renal disease; E11.22 Type 2 diabetes mellitus with diabetic chronic kidney disease; E11.621 Type 2 diabetes mellitus with foot ulcer; E78.00 Pure hypercholesterolemia, unspecified; E11.51 Type 2 diabetes mellitus with diabetic peripheral angiopathy without gangrene; E78.5 Hyperlipidemia, unspecified; T82.49XA Other complication of vascular dialysis catheter, initial encounter; H54.3 Unqualified visual loss, both eyes; E66.2 Morbid (severe) obesity with alveolar hypoventilation; Z79.899 Other long term (current) drug therapy; Z91.013 Allergy to seafood; Z68.41 Body mass index [BMI] 40.0-44.9, adult; Z87.440 Personal history of urinary (tract) infections; Z79.01 Long term (current) use of anticoagulants; Z88.8 Allergy status to other drugs, medicaments and biological substances; Z86.73 Personal history of transient ischemic attack (TIA), and cerebral infarction without residual deficits; Z90.49 Acquired absence of other specified parts of digestive tract; Z82.49 Family history of ischemic heart disease and other diseases of the circulatory system; Z82.61 Family history of arthritis; Y83.8 Other surgical procedures as the cause of abnormal reaction of the patient, or of later complication, without mention of misadventure at the time of the procedure; Y92.89 Other specified places as the place of occurrence of the external cause
CPT/HCPCS: 36415; 36901; 84132; 85027; 99156; 99157; C1751; C1769; C1894; J0690; J1642; J1644; J2250; J2405; J3010; J7040; Q9967

== ENCOUNTER 2018-11-06 12:45 | Inpatient (IN) | payer MEDICARE ==
[2018-11-06] MEDS ORDERED: BENADRYL PO ONE (14:08)
[2018-11-06] MEDS ORDERED: NORMODYNE IV ONE ×3 (14:08→15:38)
[2018-11-06] MEDS ORDERED: PERCOCET 5/325 PO ONE (14:09)
[2018-11-06] MEDS ORDERED: APRESOLINE IV ONE ×2 (14:09→19:23)
[2018-11-06] MEDS ORDERED: ATARAX PO ONE (14:09)
--- NOTE | 2018-11-06 14:10 | Emergency Department Report ---
ED General Adult HPI - General Chief complaint: High BP Stated complaint: HYPERTENSION Time Seen by Provider: 11/06/18 13:52 Source: patient, EMS (ems notes not available at time of chart dictation), RN notes reviewed, old records reviewed Mode of arrival: Stretcher Limitations: Physical Limitation - History of Present Illness Initial comments: This is a 37-year-old female. Past medical history includes type 2 diabetes, gastroparesis with gastric pa cemaker, hypertension, reported stroke 12, with residual left-sided weakness, end-stage renal disease, on dialysis, Monday, , Monday. Her private business controller is Dr. Ramos. The patient did not receive dialysis today secondary to hypertension. Patient endorses compliance with her medications. Patient complains of headache, which is frontal, throbbing, intermittent, not sudden or thunderclap in nature, and also complains of nontraumatic left-sided knee pain, which radiates distally. She denies midline neck pain, chest pain, abdominal pain, new or different shortness of breath, irritative urinary symptoms, and also endorses a blister to the posterior aspect of her left heel. The headache does not have exacerbating or relieving factors. The knee pain increases with palpation, decreases with rest. The patient is receiving wound care for this blister. 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 The patient has a left femoral vas cath, with vascular surgery planning to obtain more permanent access in the near future. -: Gradual Location: head, lower extremity Radiation: non-radiation Severity scale (0 -10): 4 Quality: aching, other Consistency: other Improves with: other Worsens with: other Associated Symptoms: other - Related Data Home Medications Medication Instructions Recorded Confirmed Last Taken Amitriptyline [Elavil] 10 mg PO BID 10/11/18 10/22/18 10/21/18 1 tab Ondansetron [Zofran TAB] 4 mg PO Q6H 10/11/18 10/22/18 10/21/18 1 tab hydrALAZINE [Apresoline TAB] 50 mg PO BID 10/11/18 10/22/18 10/21/18 1 tab Previous Rx's Medication Instructions Recorded Last Taken Type Apixaban [Eliquis] 2.5 mg PO Q12HR #60 tablet 08/04/18 10/21/18 Rx 1 tab Labetalol [Normodyne TAB] 300 mg PO TID #90 tablet 08/04/18 10/22/18 Rx 1 tab Acetaminophen [Acetaminophen TAB] 650 mg PO Q4H PRN #15 tablet 10/17/18 10/21/18 Rx 1 tab LORazepam [Ativan] 0.5 mg PO Q8HR PRN #90 tablet 10/17/18 10/21/18 Rx 1 tab Lispro Insulin [Humalog] 0 unit SUB-Q ACHS units 10/17/18 10/21/18 Rx 0 Losartan [Cozaar] 50 mg PO QDAY #30 tablet 10/17/18 10/21/18 Rx 1 tab Pantoprazole [Protonix TAB] 40 mg PO DAILY #30 tablet 10/17/18 10/21/18 Rx 1 tab Promethazine [Phenergan SUPPOS] 25 mg [place] Q6H PRN #15 supp.rect 10/17/18 10/21/18 Rx 1 supp Sucralfate [Carafate] 1 gm PO Q6HR 30 Days #30 oral.liqd 10/17/18 10/21/18 Rx 1 gm Allergies Allergy/AdvReac Type Severity Reaction Status Date / Time metformin Allergy Hives Verified 09/20/18 14:38 metoclopramide HCl Allergy Hives Verified 09/20/18 14:38 [From Reglan] prochlorperazine Allergy Hives Verified 09/20/18 14:38 [From Compazine] prochlorperazine edisylate Allergy Hives Verified 09/20/18 14:38 [From Compazine] prochlorperazine maleate Allergy Hives Verified 09/20/18 14:38 [From Compazine] haloperidol [From Haldol] AdvReac Unknown Verified 09/20/18 14:38 shellfish Allergy Swelling Uncoded 09/20/18 14:38 ED Review of Systems ROS: Stated complaint: HYPERTENSION Other details as noted in HPI Constitutional: denies: fever Eyes: denies: vision change ENT: denies: epistaxis Respiratory: denies: cough Cardiovascular: denies: chest pain Gastrointestinal: denies: abdominal pain Genitourinary: denies: dysuria Musculoskeletal: arthralgia, myalgia Skin: denies: lesions Neurological: headache, weakness (chronic left-sided weakness) Psychiatric: denies: anxiety ED Past Medical Hx - Past Medical History Hx Hypertension: Yes Hx CVA: Yes (multiple- L sided deficits, 12 CVA) Hx Heart Attack/AMI: No Hx Congestive Heart Failure: No Hx Diabetes: Yes Hx Deep Vein Thrombosis: No Hx Pulmonary Embolism: No Hx GERD: No Hx Liver Disease: No Hx Renal Disease: Yes Hx Sickle Cell Disease: No Hx Arthritis: No Hx Headaches / Migraines: No Hx Seizures: No Hx Kidney Stones: No Hx Psychiatric Treatment: No Hx Asthma: No Hx COPD: No Hx Tuberculosis: No Hx Dementia: No Hx HIV: No Additional medical history: anemia - Surgical History Hx Coronary Stent: No Hx Open Heart Surgery: No Hx Pacemaker: No Hx Internal Defibrillator: No Hx Cholecystectomy: Yes Hx Appendectomy: No Hx Breast Surgery: No Additional Surgical History: catheter placement for Hemo),bilayeral eye sugery(cataract), av fistula, gastric pacemaker for gastroparesis - Social History Smoking Status: Never Smoker Substance Use Type: None - Medications Home Medications: Home Medications Medication Instructions Recorded Confirmed Last Taken Type Apixaban [Eliquis] 2.5 mg PO Q12HR #60 tablet 08/04/18 10/22/18 10/21/18 Rx 1 tab Labetalol [Normodyne TAB] 300 mg PO TID #90 tablet 08/04/18 10/22/18 10/22/18 Rx 1 tab Amitriptyline [Elavil] 10 mg PO BID 10/11/18 10/22/18 10/21/18 History 1 tab Ondansetron [Zofran TAB] 4 mg PO Q6H 10/11/18 10/22/18 10/21/18 History 1 tab hydrALAZINE [Apresoline TAB] 50 mg PO BID 10/11/18 10/22/18 10/21/18 History 1 tab Acetaminophen [Acetaminophen TAB] 650 mg PO Q4H PRN #15 tablet 10/17/18 10/22/18 10/21/18 Rx 1 tab LORazepam [Ativan] 0.5 mg PO Q8HR PRN #90 tablet 10/17/18 10/22/18 10/21/18 Rx 1 tab Lispro Insulin [Humalog] 0 unit SUB-Q ACHS units 10/17/18 10/22/18 10/21/18 Rx 0 Losartan [Cozaar] 50 mg PO QDAY #30 tablet 10/17/18 10/22/18 10/21/18 Rx 1 tab Pantoprazole [Protonix TAB] 40 mg PO DAILY #30 tablet 10/17/18 10/22/18 10/21/18 Rx 1 tab Promethazine [Phenergan SUPPOS] 25 mg [place] Q6H PRN #15 supp.rect 10/17/18 10/22/18 10/21/18 Rx 1 supp Sucralfate [Carafate] 1 gm PO Q6HR 30 Days #30 oral.liqd 10/17/18 10/22/18 10/21/18 Rx 1 gm ED Physical Exam - General Limitations: Physical Limitation General appearance: alert, in no apparent distress, obese - Head Head exam: Present: atraumatic, normocephalic - Eye Eye exam: Present: normal appearance, EOMI. Absent: nystagmus - ENT ENT exam: Present: normal exam, normal orophraynx, mucous membranes moist, normal external ear exam - Neck Neck exam: Present: normal inspection, full ROM. Absent: tenderness, meningismus - Respiratory Respiratory exam: Present: normal lung sounds bilaterally. Absent: respiratory distress - Cardiovascular Cardiovascular Exam: Present: normal rhythm, bradycardia, normal heart sounds. Absent: systolic murmur, diastolic murmur, rubs, gallop - GI/Abdominal GI/Abdominal exam: Present: soft. Absent: distended, tenderness, guarding, rebound, rigid, pulsatile mass - Extremities Exam Extremities exam: Present: normal inspection, full ROM (full range of motion in the right leg, right arm. There is paresis and weakness in the left arm, left leg which is chronic.), pedal edema (3+ edema in the bilateral lower extremities. There is a posterior Achilles blister noted, left side, with clear discharge noted. There is no redness, pus or streaking.), other (there is a left-sided femoral vas cath noted, with no redness, pus or streaking.) - Back Exam Back exam: Present: normal inspection, full ROM. Absent: tenderness, CVA tenderness (R), paraspinal tenderness, vertebral tenderness - Neurological Exam Neurological exam: Present: alert, motor sensory deficit (chronic weakness, left arm, left leg.), other (there is no facial droop. The tongue is midline. Extraocular movements are intact bilaterally. 5 out of 5 strength right upper, right lower extremity.) - Psychiatric Psychiatric exam: Present: normal affect, normal mood - Skin Skin exam: Present: warm, dry, intact, normal color. Absent: rash ED Course Vital Signs 11/06/18 11/06/18 11/06/18 13:21 15:03 15:10 Temperature 98.2 F Pulse Rate 52 L 80 Respiratory 16 16 Rate Blood Pressure 227/115 232/131 Blood Pressure [Right] O2 Sat by Pulse 100 Oximetry 11/06/18 11/06/18 11/06/18 15:53 15:54 16:03 Temperature Pulse Rate 81 81 Respiratory 17 15 Rate Blood Pressure 207/110 Blood Pressure 207/110 [Right] O2 Sat by Pulse 100 Oximetry - Reevaluation(s) Reevaluation #1: 11/06/18 15:22 Differential diagnosis, including not limited to: Hypertensive urgency, azotemia, uremia, hyperkalemia, intracranial hemorrhage, structural intracranial lesion, arthritis Assessment and plan: 37-year-old female sent to the emergency room for hypertension, incidentally complains of left-sided pain, in her left leg, does not appear to be consistent with fracture, dislocation or DVT of the history and physical, and nonspecific headache. Patient also endorses nonspecific pruritus, and requests Benadryl. Patient has known chronic pain syndrome. She will be given Percocet for her chronic pain. She will be given Atarax for her complaint of pruritus. We will obtain noncontrast CT scan of the brain, x-ray of the chest, appropriate screening laboratory studies, initiate antihypertensive therapy, and then reassess once her initial data points have resulted. Reevaluation #2: 11/06/18 16:22 Patient markedly hypertensive in spite of multiple doses of IV labetalol. Patient appears to require urgent dialysis secondary to lower extremity edema and hypertensive urgency. Discussed with nephrology, Dr. Tay, who will arrange for urgent dialysis. Hospital physician, Dr. Turk to admit patient to the medical service for blood pressure control, and urgent dialysis. Noncontrast CT scan of the brain is negative for acute disease. ED Medical Decision Making - Lab Data Result diagrams: 11/06/18 15:13 11/06/18 15:13 Vital Signs 11/06/18 11/06/18 11/06/18 13:21 15:03 15:10 Temperature 98.2 F Pulse Rate 52 L 80 Respiratory 16 16 Rate Blood Pressure 227/115 232/131 O2 Sat by Pulse 100 Oximetry Lab Results 11/06/18 Range/Units 15:13 WBC 6.1 (4.5-11.0) K/mm3 RBC 3.77 (3.65-5.03) M/mm3 Hgb 11.8 (10.1-14.3) gm/dl Hct 36.3 (30.3-42.9) % MCV 96 (79-97) fl MCH 31 (28-32) pg MCHC 33 (30-34) % RDW 19.0 H (13.2-15.2) % Plt Count 252 (140-440) K/mm3 - EKG Data -: EKG Interpreted by Mo EKG shows normal: sinus rhythm Rate: normal - EKG Data 11/06/18 15:23 Normal sinus, 79 bpm, normal axis, QTC prolonged, motion artifact, poor R-wave progression, abnormal EKG, not having chest pain, not consistent with ST elevation myocardial infarction. - Radiology Data Radiology results: pending, report reviewed, image reviewed X-ray of the chest is negative for acute disease. Critical Care Time: Yes Critical care time in (mins) excluding proc time.: 35 Critical care attestation.: If time is entered above; I have spent that time in minutes in the direct care of this critically ill patient, excluding procedure time. ED Disposition Clinical Impression: Hypervolemia, Hypertensive urgency, Missed dialysis, End stage renal disease on dialysis Disposition: OP ADMIT IP TO THIS HOSP Is pt being admited?: Yes Condition: Fair Referrals: ANDI MILTON MD [Primary Care Provider] - 3-5 Days
--- NOTE | 2018-11-06 14:55 | XRay Report ---
AP CHEST: HISTORY: Hypertension, end-stage renal disease AP view of the chest demonstrates a normal mediastinal and cardiac contour with clear lungs and normal bony and soft tissue structures. Right [id number]-[id number] is in good position IMPRESSION: No acute cardiopulmonary process identified.
[2018-11-06 15:22] LABS: Hematocrit 36.3 % (30.3-42.9); Hemoglobin 11.8 gm/dl (10.1-14.3); Mean Corpuscular HGB Conc 33 % (30-34); Mean Corpuscular Volume 96 fl (79-97); Platelet Count 252 K/mm3 (140-440); Red Blood Count 3.77 M/mm3 (3.65-5.03)
[2018-11-06 15:32] LABS: Calcium 8.8 mg/dL (8.4-10.2)
--- NOTE | 2018-11-06 15:47 | Cat Scan Report ---
CT HEAD WITHOUT CONTRAST: HISTORY: Headache, hypertension. TECHNIQUE: Sequential 2.5mm CT images. COMPARISON: 07/27/18. FINDINGS: Cerebral Parenchyma: Chronic infarct in the right zuñiga radiata measures 4.4 x 0.9 cm in axial plane. Focal chronic infarct in the right parietal white matter measures 1.5 x 0.9 cm. The remaining brain parenchyma is within normal limits. Cerebellum: Within normal limits. Brainstem: Within normal limits. Ventricles: Normal. Sella: Normal. Extra-axial spaces: Normal. Basal Cisterns: Normal. Intracranial Hemorrhage: None. Midline Shift: None. Calvarium: Normal. Sinuses: Normal. Mastoid Air Cells: Normal. Visualized Orbits: Normal. IMPRESSION: Chronic infarcts in the right frontal and right parietal white matter. No change since 07/27/18.
--- NOTE | 2018-11-06 16:24 | History and Physical Report ---
History of Present Illness Chief complaint: My blood pressure is high History of present illness: 37 YO Female with ESRD on HD (T,R,Sa), HTN, HLD, CVA with LHP, 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 Pt states that she went to her dialysis center for routine scheduled dialysis today but was unable to undergo dialysis due to uncontrolled hypertension. Pt found to have blood pressure of 232/131. EMS notified and upon arrival the patient was found to have Hypertensive Urgency. Pt transported to [facility]. Pt seen and evaluated in ED and found to have ESRD as well as Hypertensive Urgency. Pt also complains of left leg pain. Pt states that pain is 4/10, persistent, worsened with weight bearing, not relieved with rest. Pt acknowledges noncompliance with antihypertensive medication over the past 4 days. LLE Duplex ordered at time of admission-results pending. Pt admitted to medical floor. Nephrology consulted in ED for dialysis. Pt denies fever, chills, CP, palpitations, Trauma, BRBPR, un intentional weight loss, or night sweats, unilateral leg swelling, calf pain, prolonged travel/immobility, Individual/Family history of DVT/PE/Blood Clotting Disorders. Pt previously admitted on 10/11/18. All listed medication reconciled at time of admission. Past History Past Medical History: diabetes, ESRD, hypertension, hyperlipidemia, stroke Past Surgical History: cholecystectomy, Other (AV Fistula, Gastric Pacemaker) Social history: . denies: smoking, alcohol abuse, prescription drug abuse Family history: diabetes, hypertension Medications and Allergies Allergies Allergy/AdvReac Type Severity Reaction Status Date / Time metformin Allergy Hives Verified 09/20/18 14:38 metoclopramide HCl Allergy Hives Verified 09/20/18 14:38 [From Reglan] prochlorperazine Allergy Hives Verified 09/20/18 14:38 [From Compazine] prochlorperazine edisylate Allergy Hives Verified 09/20/18 14:38 [From Compazine] prochlorperazine maleate Allergy Hives Verified 09/20/18 14:38 [From Compazine] haloperidol [From Haldol] AdvReac Unknown Verified 09/20/18 14:38 shellfish Allergy Swelling Uncoded 09/20/18 14:38 Home Medications Medication Instructions Recorded Confirmed Last Taken Type Apixaban [Eliquis] 2.5 mg PO Q12HR #60 tablet 08/04/18 10/22/18 10/21/18 Rx 1 tab Labetalol [Normodyne TAB] 300 mg PO TID #90 tablet 08/04/18 10/22/18 10/22/18 Rx 1 tab Amitriptyline [Elavil] 10 mg PO BID 10/11/18 10/22/18 10/21/18 History 1 tab Ondansetron [Zofran TAB] 4 mg PO Q6H 10/11/18 10/22/18 10/21/18 History 1 tab hydrALAZINE [Apresoline TAB] 50 mg PO BID 10/11/18 10/22/18 10/21/18 History 1 tab Acetaminophen [Acetaminophen TAB] 650 mg PO Q4H PRN #15 tablet 10/17/18 10/22/18 10/21/18 Rx 1 tab LORazepam [Ativan] 0.5 mg PO Q8HR PRN #90 tablet 10/17/18 10/22/18 10/21/18 Rx 1 tab Lispro Insulin [Humalog] 0 unit SUB-Q ACHS units 10/17/18 10/22/18 10/21/18 Rx 0 Losartan [Cozaar] 50 mg PO QDAY #30 tablet 10/17/18 10/22/18 10/21/18 Rx 1 tab Pantoprazole [Protonix TAB] 40 mg PO DAILY #30 tablet 10/17/18 10/22/18 10/21/18 Rx 1 tab Promethazine [Phenergan SUPPOS] 25 mg [place] Q6H PRN #15 supp.rect 10/17/18 10/22/18 10/21/18 Rx 1 supp Sucralfate [Carafate] 1 gm PO Q6HR 30 Days #30 oral.liqd 10/17/18 10/22/18 10/21/18 Rx 1 gm Review of Systems Constitutional: no weight loss, no weight gain, no fever, no chills Ears, nose, mouth and throat: no ear pain, no ear discharge, no tinnitis, no decreased hearing, no nose pain Breasts: no change in shape, no swelling, no mass Cardiovascular: no chest pain, no orthopnea, no palpitations Respiratory: no cough, no cough with sputum, no excessive sputum, no hemoptysis Gastrointestinal: no nausea, no vomiting, no diarrhea, no constipation Genitourinary Female: no pelvic pain, no flank pain, no menorrhagia, no dysuria, no urinary frequency Rectal: no pain, no incontinence, no bleeding Integumentary: no rash, no pruritis, no redness, no sores, no wounds Neurological: no paralysis, no weakness, no parathesias, no numbness, no tingling Psychiatric: no anxiety, no memory loss, no change in sleep habits, no sleep disturbances, no insomnia, no hypersomnia Endocrine: no heat intolerance, no polyphagia, no excessive thirst, no polydipsia, no polyuria Hematologic/Lymphatic: no easy bruising, no easy bleeding Allergic/Immunologic: no urticaria, no allergic rhinitis, no wheezing Exam - Constitutional Vitals: Temp Pulse Resp BP Pulse Ox 98.2 F 81 15 207/110 100 11/06/18 13:21 11/06/18 15:54 11/06/18 16:03 11/06/18 15:54 11/06/18 15:54 General appearance: Present: mild distress - EENT Eyes: Present: PERRL ENT: hearing intact, clear oral mucosa - Neck Neck: Present: supple, normal ROM - Respiratory Respiratory effort: normal Respiratory: bilateral: CTA - Cardiovascular Heart Sounds: Present: S1 & S2. Absent: rub, click - Extremities Extremity abnormal: ulceration, other (LLE, Dressing Clean, Dry, Intact) Peripheral Pulses: within normal limits - Abdominal General gastrointestinal: Present: soft, non-tender, non-distended, normal bowel sounds Female genitourinary: Present: normal - Integumentary Integumentary: Present: clear, warm, dry - Musculoskeletal Musculoskeletal: gait normal, strength equal bilaterally - Psychiatric Psychiatric: appropriate mood/affect, intact judgment & insight - Neurologic Neurologic: CNII-XII intact, moves all extremities Results - Labs CBC & Chem 7: 11/06/18 15:13 11/06/18 15:13 Labs: Abnormal lab results 11/06/18 11/06/18 Range/Units 15:13 15:13 RDW 19.0 H (13.2-15.2) % BUN 54 H (7-17) mg/dL Creatinine 6.2 H (0.7-1.2) mg/dL Glucose 128 H (65-100) mg/dL Assessment and Plan - Patient Problems (1) End stage renal disease on dialysis Current Visit: Yes Status: Chronic Plan to address problem: Nephrology consulted in ED, Dialysis as per renal team, monitor uop q shift, avoid nephrotoxic agents. (2) Diabetic foot ulcer Current Visit: Yes Status: Acute Qualifiers: Diabetes mellitus type: type 1 Plan to address problem: wound care consulted, LLE duplex, pain control. Pt on therapeutic anticoagulatio n at time of exam. (3) Hypertensive urgency Current Visit: Yes Status: Acute Plan to address problem: Monitor bp q shift, resume prehospital antihypertensive therapy, IV hydralazine prn. (4) HLD (hyperlipidemia) Current Visit: No Status: Acute Qualifiers: Hyperlipidemia type: mixed hyperlipidemia Qualified Code(s): E78.2 - Mixed hyperlipidemia Plan to address problem: low cholesterol diet, (5) Thrombus Current Visit: Yes Status: Acute Plan to address problem: IVC Thrombus: chronic: On therapeutic anticoagulation. Continue therapeutic anticoagualtion with eliquis. (6) Diabetes Current Visit: Yes Status: Acute Plan to address problem: ADA diet, insulin, accu check (7) DVT prophylaxis Current Visit: No Status: Acute Plan to address problem: Continue therapeutic anticoagulation.
[2018-11-06] MEDS ORDERED: PHENERGAN PR PRN (16:25)
[2018-11-06] MEDS ORDERED: ATIVAN PO PRN (16:25)
[2018-11-06] MEDS ORDERED: TYLENOL PO PRN ×2 (16:25→16:26)
[2018-11-06] MEDS ORDERED: SODIUM CHLORIDE FLUSH SYRINGE 10 ML IV PRN (16:26)
[2018-11-06] MEDS ORDERED: D50W (25GM) Syringe IV PRN (16:26)
[2018-11-06] MEDS ORDERED: PROVENTIL IH PRN (16:26)
[2018-11-06] MEDS ORDERED: APRESOLINE IV PRN (16:29)
[2018-11-06] MEDS ORDERED: NON-FORMULARY (Ondansetron [Zofran Tab] 4 MG) PO SCH (16:30)
[2018-11-06] MEDS: ZOFRAN ODT PO SCH ×2 (18:10→23:29)
[2018-11-06] MEDS ORDERED: ZOFRAN ODT ONE (18:10)
[2018-11-06] MEDS ORDERED: CARAFATE ONE (18:10)
[2018-11-06] MEDS: CARAFATE PO SCH ×2 (18:10→23:29)
[2018-11-06 18:36] LABS: INR 0.96 (0.87-1.13)
[2018-11-06] MEDS ORDERED: APRESOLINE ONE (19:28)
[2018-11-06] MEDS: APRESOLINE PO SCH (23:24)
[2018-11-06] MEDS: NORMODYNE PO SCH (23:24)
[2018-11-06] MEDS: ELIQUIS PO SCH (23:25)
[2018-11-06] MEDS: SODIUM CHLORIDE FLUSH SYRINGE 10 ML IV SCH (23:25)
[2018-11-06] MEDS: ELAVIL PO SCH (23:25)
[2018-11-07] MEDS: ZOFRAN ODT PO SCH ×4 (05:57→23:12)
[2018-11-07] MEDS: CARAFATE PO SCH ×4 (06:16→23:13)
[2018-11-07 06:53] LABS: Basophils % (Auto) 0.7 % (0.0-1.8); Eosinophils # (Auto) 0.2 K/mm3 (0.0-0.4); Eosinophils % (Auto) 3.5 % (0.0-4.3); Hematocrit 35.2 % (30.3-42.9); Hemoglobin 11.4 gm/dl (10.1-14.3); Lymphocytes # (Auto) 1.3 K/mm3 (1.2-5.4); Lymphocytes % (Auto) 23.9 % (13.4-35.0); Mean Corpuscular HGB Conc 33 % (30-34); Mean Corpuscular Volume 96 fl (79-97); Monocytes # (Auto) 0.5 K/mm3 (0.0-0.8); Monocytes % (Auto) 9.2 % (0.0-7.3); Platelet Count 251 K/mm3 (140-440); Red Blood Count 3.66 M/mm3 (3.65-5.03); Red Cell Distribution Width 19.2 % (13.2-15.2)
[2018-11-07 07:11] LABS: Calcium 8.6 mg/dL (8.4-10.2)
[2018-11-07] MEDS: NORMODYNE PO SCH ×3 (09:08→21:41)
[2018-11-07] MEDS: PERCOCET 5/325 PO PRN ×2 (09:09→21:40)
[2018-11-07] MEDS: PROTONIX PO SCH (11:16)
[2018-11-07] MEDS: APRESOLINE PO SCH ×2 (11:16→21:42)
[2018-11-07] MEDS: COZAAR PO SCH (11:16)
[2018-11-07] MEDS: ELAVIL PO SCH ×2 (11:16→21:40)
--- NOTE | 2018-11-07 11:29 | Consultation ---
History of Present Illness - Reason for Consult end stage renal disease - History of Present Illness This is a very pleasant 37-year-old -Serbian female with a past medical history of end-stage renal disease secondary to hypertension who has been on chronic hemodialysis for the past 3 years, presents to emergency department secondary to increased blood pressures and associated headaches noted at her dialysis unit. She was not dialyzed and was sent into the ER for further evaluation. She typically dialyzes on a Monday schedule. She denies any missed dialysis sessions. Labs noted and there are no acute abnormalities. We will set patient up for her missed hemodialysis session today. Past History Past Medical History: diabetes, ESRD, hypertension, hyperlipidemia, stroke Past Surgical History: cholecystectomy, Other (AV Fistula, Gastric Pacemaker) Social history: . denies: smoking, alcohol abuse, prescription drug abuse Family history: diabetes, hypertension Medications and Allergies Allergies Allergy/AdvReac Type Severity Reaction Status Date / Time metformin Allergy Hives Verified 09/20/18 14:38 metoclopramide HCl Allergy Hives Verified 09/20/18 14:38 [From Reglan] prochlorperazine Allergy Hives Verified 09/20/18 14:38 [From Compazine] prochlorperazine edisylate Allergy Hives Verified 09/20/18 14:38 [From Compazine] prochlorperazine maleate Allergy Hives Verified 09/20/18 14:38 [From Compazine] haloperidol [From Haldol] AdvReac Unknown Verified 09/20/18 14:38 shellfish Allergy Swelling Uncoded 09/20/18 14:38 Home Medications Medication Instructions Recorded Confirmed Last Taken Type Apixaban [Eliquis] 2.5 mg PO Q12HR #60 tablet 08/04/18 10/22/18 10/21/18 Rx 1 tab Labetalol [Normodyne TAB] 300 mg PO TID #90 tablet 08/04/18 10/22/18 10/22/18 Rx 1 tab Amitriptyline [Elavil] 10 mg PO BID 10/11/18 10/22/18 10/21/18 History 1 tab Ondansetron [Zofran TAB] 4 mg PO Q6H 10/11/18 10/22/18 10/21/18 History 1 tab hydrALAZINE [Apresoline TAB] 50 mg PO BID 10/11/18 10/22/18 10/21/18 History 1 tab Acetaminophen [Acetaminophen TAB] 650 mg PO Q4H PRN #15 tablet 10/17/18 10/22/18 10/21/18 Rx 1 tab LORazepam [Ativan] 0.5 mg PO Q8HR PRN #90 tablet 10/17/18 10/22/18 10/21/18 Rx 1 tab Lispro Insulin [Humalog] 0 unit SUB-Q ACHS units 10/17/18 10/22/18 10/21/18 Rx 0 Losartan [Cozaar] 50 mg PO QDAY #30 tablet 10/17/18 10/22/18 10/21/18 Rx 1 tab Pantoprazole [Protonix TAB] 40 mg PO DAILY #30 tablet 10/17/18 10/22/18 10/21/18 Rx 1 tab Promethazine [Phenergan SUPPOS] 25 mg PA Q6H PRN #15 supp.rect 10/17/18 10/22/18 10/21/18 Rx 1 supp Sucralfate [Carafate] 1 gm PO Q6HR 30 Days #30 oral.liqd 10/17/18 10/22/18 10/21/18 Rx 1 gm Active Meds: Active Medications Acetaminophen (Tylenol) 650 mg PO Q4H PRN PRN Reason: Pain MILD(1-3)/Fever >100.5/CHAVES Albuterol (Proventil) 2.5 mg IH Q4HRT PRN PRN Reason: Shortness Of Breath Amitriptyline HCl (Elavil) 10 mg PO BID [facility] Last Admin: 11/07/18 11:16 Dose: 10 mg Documented by: Apixaban (Eliquis) 2.5 mg PO Q12HR [facility]; Protocol Last Admin: 11/06/18 23:25 Dose: 2.5 mg Documented by: Dextrose (D50w (25gm) Syringe) 50 ml IV PRN PRN PRN Reason: Hypoglycemia Hydralazine HCl (Apresoline) 50 mg PO BID [facility] Last Admin: 11/07/18 11:16 Dose: 50 mg Documented by: Hydralazine HCl (Apresoline) 20 mg IV Q6HR PRN PRN Reason: HTN SYS>170 Labetalol HCl (Normodyne) 300 mg PO TID [facility] Last Admin: 11/07/18 09:08 Dose: 300 mg Documented by: Lorazepam (Ativan) 0.5 mg PO Q8HR PRN PRN Reason: N/V Unrelieved By zofran Losartan Potassium (Cozaar) 50 mg PO QDAY [facility] Last Admin: 11/07/18 11:16 Dose: 50 mg Documented by: Ondansetron HCl (Zofran) 4 mg IV Q8H PRN PRN Reason: Nausea And Vomiting Ondansetron HCl (Zofran Odt) 4 mg PO Q6H [facility] Last Admin: 11/07/18 05:57 Dose: Not Given Documented by: Oxycodone/Acetaminophen (Percocet 5/325) 1 tab PO Q6H PRN PRN Reason: Pain, Moderate (4-6) Last Admin: 11/07/18 09:09 Dose: 1 tab Documented by: Pantoprazole Sodium (Protonix) 40 mg PO DAILY [facility] Last Admin: 11/07/18 11:16 Dose: 40 mg Documented by: Promethazine HCl (Phenergan) 25 mg PA Q6H PRN PRN Reason: Nausea And Vomiting Sodium Chloride (Sodium Chloride Flush Syringe 10 Ml) 10 ml IV BID [facility] Last Admin: 11/06/18 23:25 Dose: 10 ml Documented by: Sodium Chloride (Sodium Chloride Flush Syringe 10 Ml) 10 ml IV PRN PRN PRN Reason: LINE FLUSH Sucralfate (Carafate) 1 gm PO Q6HR [facility] Last Admin: 11/07/18 06:16 Dose: 1 gm Documented by: Review of Systems All systems: negative Constitutional: weakness Exam - Vital Signs Vital signs: Vital Signs Temp Pulse Resp BP Pulse Ox 98.2 F 52 L 16 227/115 100 11/06/18 13:21 11/06/18 13:21 11/06/18 13:21 11/06/18 13:21 11/06/18 13:21 - General Appearance General appearance: well-developed, well-nourished, appears stated age EENT: ATNC, PERRL Neck: Present: neck supple, trachea midline Respiratory: Clear to Ascultation, Normal Exam Heart: regular, S1S2, other (left femoral PermCath) Gastrointestinal: Present: normal, normoactive bowel sounds Integumentary: no rash, warm and dry Neurologic: no focal deficit, no asterixis, alert and oriented x3 Musculoskeletal: Present: other Psychiatric: mood/affect appropriate, cooperative Results - Lab Results 11/07/18 05:57 11/07/18 05:57 Most recent lab results Calcium 8.6 mg/dL (8.4-10.2) 11/07/18 05:57 Assessment and Plan - Patient Problems (1) End stage renal disease on dialysis Current Visit: Yes Status: Chronic Plan to address problem: We'll set patient up for hemodialysis today seeing that she missed yesterday session. We'll otherwise keep her on an inpatient schedule of Monday. (2) Hypertensive chronic kidney disease with stage 5 chronic kidney disease or end stage renal disease Current Visit: Yes Status: Chronic Plan to address problem: Blood pressures are more stable at this time. Will continue on her current antihypertensive regimen. We'll monitor. (3) Diabetes Current Visit: Yes Status: Acute Qualifiers: Chronic kidney disease stage: on chronic dialysis Plan to address problem: Management per primary team. (4) Anemia in CKD (chronic kidney disease) Current Visit: Yes Status: Acute Qualifiers: Chronic kidney disease stage: on chronic dialysis Qualified Code(s): N18.6 - End stage renal disease; D63.1 - Anemia in chronic kidney disease; Z99.2 - Dependence on renal dialysis Plan to address problem: Anemia goals are met at this time and there is no acute need for Epogen therapy. We'll continue to monitor.
[2018-11-07] MEDS ORDERED: NACL 0.9% 100 ML IV PRN (11:38)
--- NOTE | 2018-11-07 12:58 | Progress Note ---
Assessment and Plan - Patient Problems (1) End stage renal disease on dialysis Current Visit: Yes Status: Chronic Plan to address problem: Nephrology consulted in ED, Dialysis as per renal team, monitor uop q shift, avoid nephrotoxic agents. (2) Diabetic foot ulcer Current Visit: Yes Status: Acute Qualifiers: Diabetes mellitus type: type 1 Plan to address problem: local wound care consulted, LLE duplex, pain control. Pt on therapeutic anticoagulation at time of exam. (3) Hypertensive urgency - improved Current Visit: Yes Status: Acute Plan to address problem: Monitor bp q shift, resume prehospital antihypertensive therapy, IV hydralazine prn. (4) HLD (hyperlipidemia) Current Visit: No Status: Acute Qualifiers: Hyperlipidemia type: mixed hyperlipidemia Qualified Code(s): E78.2 - Mixed hyperlipidemia Plan to address problem: low cholesterol diet, Commence statin (5) Thrombus Current Visit: Yes Status: Acute Plan to address problem: IVC Thrombus: chronic: On therapeutic anticoagulation. Continue therapeutic anticoagualtion with eliquis. (6) Diabetes Current Visit: Yes Status: Acute Plan to address problem: ADA diet, accu check SSI (7) DVT prophylaxis Current Visit: No Status: Acute Plan to address problem: Continue therapeutic anticoagulation. Disposition: D/c back to [facility] Subjective Date of service: 11/07/18 Principal diagnosis: HTN, CHAVES, ESRD Interval history: Patient having hemodialysis today. Headache is resolved. No chest pain, shortness of breath. Objective - Exam Narrative Exam: Constitutional: Well-nourished well-developed. In no distress Head: Normocephalic atraumatic Eyes: Pupils are equal round and reactive to light Nose: No enlarged turbinates, no septal deviation. Mouth: Moist mucous membranes. Neck: Supple no thyromegaly. No bruit. No JVD Heart: Regular rate and rhythm, S1-S2 normal. No rubs murmurs or gallop Lungs: Clear to auscultation bilaterally. no rales or rhonchi Abdomen: Soft, nontender. Bowel sound are present. Extremities: No edema, no cyanosis, no clubbing. Neuro: Alert oriented Oriented x3. No focal sensory or motor deficit. Skin: No rashes or hyperpigmented spots Musculoskeletal system: No joint pain or swelling Hematological: No petechia or subcutanous hemorrhages. Immunological: No multiple septic spots on the skin Lymphatic: No generalized lymphadenopathy Psychiatry: Euthymic. Calm. - Constitutional Vitals: Vital Signs - 12hr 11/07/18 11/07/18 09:08 09:40 Blood Pressure 131/64 O2 Sat by Pulse 98 Oximetry - Labs CBC & Chem 7: 11/07/18 05:57 11/07/18 05:57 Labs: Abnormal lab results 11/06/18 11/06/18 11/07/18 Range/Units 15:13 15:13 05:57 RDW 19.0 H 19.2 H (13.2-15.2) % [place] % (Auto) 9.2 H (0.0-7.3) % BUN 54 H (7-17) mg/dL Creatinine 6.2 H (0.7-1.2) mg/dL Glucose 128 H (65-100) mg/dL 11/07/18 Range/Units 05:57 RDW (13.2-15.2) % [place] % (Auto) (0.0-7.3) % BUN 55 H (7-17) mg/dL Creatinine 7.0 H (0.7-1.2) mg/dL Glucose (65-100) mg/dL
[2018-11-07] MEDS: ELIQUIS PO SCH ×2 (13:59→21:40)
[2018-11-07] MEDS: SODIUM CHLORIDE FLUSH SYRINGE 10 ML IV SCH ×2 (13:59→21:43)
[2018-11-07] MEDS ORDERED: NACL 0.9 (PRIMING MACHINE ONLY DIALYSIS) MC ONE (20:09)
[2018-11-07] MEDS: ZOFRAN IV PRN (21:40)
--- NOTE | 2018-11-08 01:05 | Vascular Lab Report ---
EXAM: VL VENOUS DUPLEX LE LT HISTORY: leg pain TECHNIQUE: The lower extremity veins were interrogated with a high-frequency linear transducer, emplo edwin grayscale imaging, duplex Doppler and color flow Doppler imaging. COMPARISON: None available. FINDINGS: There is no loss of compressibility, no loss of intraluminal color flow Doppler signal, and no loss o f intraluminal duplex Doppler signal within the common femoral vein, superficial femoral vein, poplit eal vein, and posterior tibial vein. The findings are inconsistent with deep venous thrombosis. There is no evidence for luminal thrombosis of the saphenous vein or superficial venous system. No abnormal fluid collection reminiscent of a Byrd's cyst is seen in the popliteal fossa. No eviden ce for gross inguinal lymphadenopathy is seen. IMPRESSION: 1. No evidence for DVT seen. 2. No abnormal fluid collection or Byrd's cyst seen. This document is electronically signed by Beth Mcdonald MD., November 08 2018 01:03:34 AM ET
[2018-11-08] MEDS: CARAFATE PO SCH ×4 (05:50→17:15)
[2018-11-08] MEDS: ZOFRAN ODT PO SCH ×3 (05:51→17:15)
[2018-11-08] MEDS: NORMODYNE PO SCH ×2 (08:00→17:16)
[2018-11-08 09:59] LABS: Basophils % (Auto) 0.6 % (0.0-1.8); Eosinophils # (Auto) 0.3 K/mm3 (0.0-0.4); Eosinophils % (Auto) 6.1 % (0.0-4.3); Hematocrit 33.4 % (30.3-42.9); Hemoglobin 10.8 gm/dl (10.1-14.3); Lymphocytes # (Auto) 1.6 K/mm3 (1.2-5.4); Lymphocytes % (Auto) 30.7 % (13.4-35.0); Mean Corpuscular HGB Conc 33 % (30-34); Mean Corpuscular Volume 97 fl (79-97); Monocytes # (Auto) 0.5 K/mm3 (0.0-0.8); Monocytes % (Auto) 8.9 % (0.0-7.3); Platelet Count 243 K/mm3 (140-440); Red Blood Count 3.43 M/mm3 (3.65-5.03); Red Cell Distribution Width 19.7 % (13.2-15.2)
[2018-11-08] MEDS ORDERED: BENADRYL PO PRN (10:00)
[2018-11-08 10:17] LABS: Albumin 3.1 g/dL (3.9-5); BUN/Creatinine Ratio 8; Blood Urea Nitrogen 57 mg/dL (7-17); Calcium 8.1 mg/dL (8.4-10.2); Hemolysis Index 4
[2018-11-08 10:21] LABS: Alanine Aminotransferase < 5 units/L (7-56)
--- NOTE | 2018-11-08 10:25 | Progress Note ---
Assessment and Plan - Patient Problems (1) End stage renal disease on dialysis Current Visit: Yes Status: Chronic Plan to address problem: Will consult vascular surgery today in the setting of her non functional femoral permcath. Plan for dialysis later today as per her [facility] schedule. . (2) Hypertensive chronic kidney disease with stage 5 chronic kidney disease or end stage renal disease Current Visit: Yes Status: Chronic Plan to address problem: Blood pressures are more stable at this time. Will continue on her current antihypertensive regimen. We'll monitor. (3) Diabetes Current Visit: Yes Status: Acute Qualifiers: Chronic kidney disease stage: on chronic dialysis Plan to address problem: Management per primary team. (4) Anemia in CKD (chronic kidney disease) Current Visit: Yes Status: Acute Qualifiers: Chronic kidney disease stage: on chronic dialysis Qualified Code(s): N18.6 - End stage renal disease; D63.1 - Anemia in chronic kidney disease; Z99.2 - Dependence on renal dialysis Plan to address problem: Anemia goals are met at this time and there is no acute need for Epogen therapy. We'll continue to monitor. Subjective Date of service: 11/08/18 Principal diagnosis: HTN, CHAVES, ESRD Interval history: Malfunction of her femoral permcath yesterday at dialysis session. Will consult IR today to replace catheter and plan for dialysis today after session. Objective - Vital Signs Vital signs: Vital Signs - 12hr 11/07/18 11/08/18 23:02 04:43 Temperature 97.5 F L 97.9 F Pulse Rate 85 84 Respiratory 20 20 Rate Blood Pressure 142/83 182/94 O2 Sat by Pulse 99 100 Oximetry - General Appearance General appearance: well-developed, well-nourished, appears stated age EENT: ATNC, PERRL Neck: no JVD, no thyromegaly Respiratory: Present: Clear to Ascultation Cardiology: regular, S1S2 Gastrointestinal: normal, normoactive bowel sounds Integumentary: warm and dry Neurologic: no focal deficit, alert and oriented x3 Musculoskeletal: other (-edema ) Psychiatric: cooperative - Lab 11/08/18 06:53 11/08/18 06:53 Most recent lab results Calcium 8.1 mg/dL (8.4-10.2) L 11/08/18 06:53 - Allied health notes Allied health notes reviewed: nursing Medications & Allergies - Medications Allergies/Adverse Reactions: Allergies metformin Allergy (Verified 09/20/18 14:38) Hives metoclopramide HCl [From Reglan] Allergy (Verified 09/20/18 14:38) Hives prochlorperazine [From Compazine] Allergy (Verified 09/20/18 14:38) Hives prochlorperazine edisylate [From Compazine] Allergy (Verified 09/20/18 14:38) Hives prochlorperazine maleate [From Compazine] Allergy (Verified 09/20/18 14:38) Hives haloperidol [From Haldol] Adverse Reaction (Verified 09/20/18 14:38) Unknown PT STATES HER TEETH CHATTERED AND HER "EYES DRIFTED OFF" shellfish Allergy (Uncoded 09/20/18 14:38) Swelling Home Medications: Home Medications Medication Instructions Recorded Confirmed Last Taken Type Apixaban [Eliquis] 2.5 mg PO Q12HR #60 tablet 08/04/18 10/22/18 10/21/18 Rx 1 tab Labetalol [Normodyne TAB] 300 mg PO TID #90 tablet 08/04/18 10/22/18 10/22/18 Rx 1 tab Amitriptyline [Elavil] 10 mg PO BID 10/11/18 10/22/18 10/21/18 History 1 tab Ondansetron [Zofran TAB] 4 mg PO Q6H 10/11/18 10/22/18 10/21/18 History 1 tab hydrALAZINE [Apresoline TAB] 50 mg PO BID 10/11/18 10/22/18 10/21/18 History 1 tab Acetaminophen [Acetaminophen TAB] 650 mg PO Q4H PRN #15 tablet 10/17/18 10/22/18 10/21/18 Rx 1 tab LORazepam [Ativan] 0.5 mg PO Q8HR PRN #90 tablet 10/17/18 10/22/18 10/21/18 Rx 1 tab Lispro Insulin [Humalog] 0 unit SUB-Q ACHS units 10/17/18 10/22/18 10/21/18 Rx 0 Losartan [Cozaar] 50 mg PO QDAY #30 tablet 10/17/18 10/22/18 10/21/18 Rx 1 tab Pantoprazole [Protonix TAB] 40 mg PO DAILY #30 tablet 10/17/18 10/22/18 10/21/18 Rx 1 tab Promethazine [Phenergan SUPPOS] 25 mg MO Q6H PRN #15 supp.rect 10/17/18 10/22/18 10/21/18 Rx 1 supp Sucralfate [Carafate] 1 gm PO Q6HR 30 Days #30 oral.liqd 10/17/18 10/22/18 10/21/18 Rx 1 gm Active Medications: Generic Name Dose Route Start Last Admin Trade Name Freq PRN Reason Stop Dose Admin Acetaminophen 650 mg 11/06/18 16:26 Tylenol PO Q4H PRN Pain MILD(1-3)/Fever >100.5/CHAVES Albuterol 2.5 mg 11/06/18 16:26 Proventil IH Q4HRT PRN Shortness Of Breath Amitriptyline HCl 10 mg 11/06/18 22:00 11/07/18 21:40 Elavil PO 10 mg BID TRUDI Administration Apixaban 2.5 mg 11/06/18 22:00 11/07/18 21:40 Eliquis PO 2.5 mg Q12HR TRUDI Administration Protocol Dextrose 50 ml 11/06/18 16:26 D50w (25gm) Syringe IV PRN PRN Hypoglycemia Diphenhydramine HCl 25 mg 11/08/18 10:00 11/08/18 09:50 Benadryl PO 25 mg Q8H PRN Administration Itching Hydralazine HCl 50 mg 11/06/18 22:00 11/07/18 21:42 Apresoline PO Not Given BID TRUDI Hydralazine HCl 20 mg 11/06/18 16:29 Apresoline IV Q6HR PRN HTN SYS>170 Sodium Chloride 100 mls @ 999 mls/hr 11/07/18 11:38 Nacl 0.9% IV ELANA PRN Hypotension Labetalol HCl 300 mg 11/06/18 20:00 11/07/18 21:41 Normodyne PO Not Given TID TRUDI Lorazepam 0.5 mg 11/06/18 16:25 Ativan PO Q8HR PRN N/V Unrelieved By zofran Losartan Potassium 50 mg 11/07/18 10:00 11/07/18 11:16 Cozaar PO 50 mg QDAY TR[facility]I Administration Ondansetron HCl 4 mg 11/06/18 16:26 11/07/18 21:40 Zofran IV 4 mg Q8H PRN Administration Nausea And Vomiting Ondansetron HCl 4 mg 11/06/18 17:00 11/08/18 05:52 Zofran Odt PO Not Given Q6H [facility]I Oxycodone/Acetaminophen 1 tab 11/06/18 16:53 11/07/18 21:40 Percocet 5/325 PO 1 tab Q6H PRN Administration Pain, Moderate (4-6) Pantoprazole Sodium 40 mg 11/07/18 10:00 11/07/18 11:16 Protonix PO 40 mg DAILY TRUID Administration Promethazine HCl 25 mg 11/06/18 16:25 Phenergan MO Q6H PRN Nausea And Vomiting Sodium Chloride 10 ml 11/06/18 22:00 11/07/18 21:43 Sodium Chloride Flush Syringe 10 Ml IV 10 ml BID [facility] Administration Sodium Chloride 10 ml 11/06/18 16:26 Sodium Chloride Flush Syringe 10 Ml IV PRN PRN LINE FLUSH Sucralfate 1 gm 11/06/18 18:00 11/08/18 05:53 Carafate PO Not Given Q6HR [facility]
[2018-11-08] MEDS ORDERED: NACL 0.9% 100 ML IV PRN (11:00)
[2018-11-08] MEDS: APRESOLINE PO SCH ×2 (12:01→22:03)
[2018-11-08] MEDS: COZAAR PO SCH (12:02)
[2018-11-08] MEDS: ELIQUIS PO SCH ×2 (12:03→22:05)
[2018-11-08] MEDS: PROTONIX PO SCH (12:12)
[2018-11-08] MEDS: ELAVIL PO SCH ×2 (12:13→22:04)
[2018-11-08] MEDS: SODIUM CHLORIDE FLUSH SYRINGE 10 ML IV SCH ×2 (12:14→22:03)
[2018-11-08] MEDS: BENADRYL IV PRN (17:17)
--- NOTE | 2018-11-08 21:36 | Progress Note ---
Assessment and Plan - Patient Problems - End stage renal disease on dialysis Pt with malfunctioning femoral vascath - Vascular surgeon consulted Nephrology consulted in ED, Dialysis as per renal team, monitor uop q shift, avoid nephrotoxic agents. As well as on - Diabetic foot ulcer local wound care consulted, will with his business and this was LLE duplex, pain control. Pt on therapeutic anticoagulation at time of exam. -Hypertensive urgency - improved Monitor bp q shift, resume prehospital antihypertensive therapy, IV hydralazine prn. - HLD (hyperlipidemia) low cholesterol diet, Commence statin - Thrombus IVC Thrombus: chronic: On therapeutic anticoagulation. Continue therapeutic anticoagualtion with eliqu is. - Diabetes ADA diet, accu check SSI - DVT prophylaxis Continue therapeutic anticoagulation. Disposition: D/c back to SNF after vascular repair of malfunctioning vascath and dialysis resumed Subjective Date of service: 11/08/18 Principal diagnosis: HTN, CHAVES, ESRD Interval history: Patient having hemodialysis today. Headache is resolved. No chest pain, shortness of breath. Objective - Exam Narrative Exam: Constitutional: Well-nourished well-developed. In no distress Head: Normocephalic atraumatic Eyes: Pupils are equal round and reactive to light Nose: No enlarged turbinates, no septal deviation. Mouth: Moist mucous membranes. Neck: Supple no thyromegaly. No bruit. No JVD Heart: Regular rate and rhythm, S1-S2 normal. No rubs murmurs or gallop Lungs: Clear to auscultation bilaterally. no rales or rhonchi Abdomen: Soft, nontender. Bowel sound are present. Extremities: No edema, no cyanosis, no clubbing. Neuro: Alert oriented Oriented x3. No focal sensory or motor deficit. Skin: No rashes or hyperpigmented spots Musculoskeletal system: No joint pain or swelling Hematological: No petechia or subcutanous hemorrhages. Immunological: No multiple septic spots on the skin Lymphatic: No generalized lymphadenopathy Psychiatry: Euthymic. Calm. - Constitutional Vitals: Vital Signs - 12hr 11/08/18 11/08/18 11/08/18 12:02 12:43 16:44 Temperature 97.6 F 98.3 F Pulse Rate 80 83 84 Respiratory 20 18 Rate Blood Pressure 171/80 141/79 O2 Sat by Pulse 95 95 Oximetry - Labs CBC & Chem 7: 11/08/18 06:53 11/08/18 06:53 Labs: Abnormal lab results 11/08/18 11/08/18 Range/Units 06:53 06:53 RBC 3.43 L (3.65-5.03) M/mm3 RDW 19.7 H (13.2-15.2) % [place] % (Auto) 8.9 H (0.0-7.3) % [place] % (Auto) 6.1 H (0.0-4.3) % BUN 57 H (7-17) mg/dL Creatinine 7.4 H (0.7-1.2) mg/dL Glucose 101 H (65-100) mg/dL Calcium 8.1 L (8.4-10.2) mg/dL AST < 5 L (5-40) units/L ALT < 5 L (7-56) units/L Albumin 3.1 L (3.9-5) g/dL
[2018-11-08] MEDS: PERCOCET 5/325 PO PRN (22:03)
[2018-11-09] MEDS: ZOFRAN IV PRN ×2 (00:49→00:59)
[2018-11-09] MEDS: BENADRYL IV PRN ×3 (00:49→21:19)
[2018-11-09] MEDS: NORMODYNE PO SCH ×4 (00:49→21:23)
[2018-11-09] MEDS: CARAFATE PO SCH ×4 (00:49→18:00)
[2018-11-09] MEDS: ZOFRAN ODT PO SCH ×5 (01:10→22:55)
[2018-11-09 07:01] LABS: Albumin 3.4 g/dL (3.9-5); Calcium 8.6 mg/dL (8.4-10.2)
[2018-11-09 07:26] LABS: Basophils % (Auto) 0.6 % (0.0-1.8); Eosinophils # (Auto) 0.4 K/mm3 (0.0-0.4); Eosinophils % (Auto) 6.7 % (0.0-4.3); Hematocrit 34.9 % (30.3-42.9); Lymphocytes # (Auto) 1.7 K/mm3 (1.2-5.4); Lymphocytes % (Auto) 30.3 % (13.4-35.0); Mean Corpuscular HGB Conc 32 % (30-34); Mean Corpuscular Volume 99 fl (79-97); Monocytes # (Auto) 0.5 K/mm3 (0.0-0.8); Monocytes % (Auto) 8.3 % (0.0-7.3); Platelet Count 250 K/mm3 (140-440); Red Blood Count 3.53 M/mm3 (3.65-5.03); Red Cell Distribution Width 19.8 % (13.2-15.2)
--- NOTE | 2018-11-09 07:56 | Progress Note ---
Assessment and Plan - Patient Problems (1) End stage renal disease on dialysis Current Visit: Yes Status: Chronic Plan to address problem: Will consult vascular surgery today in the setting of her non functional femoral permcath. Plan for dialysis later today after her HD session. I confirmed with the HD unit and she is typically on a TTS outpatient schedule. (2) Hypertensive chronic kidney disease with stage 5 chronic kidney disease or end stage renal disease Current Visit: Yes Status: Chronic Plan to address problem: Blood pressures are more stable at this time. Will continue on her current antihypertensive regimen. We'll monitor. (3) Diabetes Current Visit: Yes Status: Acute Qualifiers: Chronic kidney disease stage: on chronic dialysis Plan to address problem: Management per primary team. (4) Anemia in CKD (chronic kidney disease) Current Visit: Yes Status: Acute Qualifiers: Chronic kidney disease stage: on chronic dialysis Qualified Code(s): N18.6 - End stage renal disease; D63.1 - Anemia in chronic kidney disease; Z99.2 - Dependence on renal dialysis Plan to address problem: Anemia goals are met at this time and there is no acute need for Epogen therapy. We'll continue to monitor. Subjective Date of service: 11/09/18 Principal diagnosis: HTN, CHAVES, ESRD Interval history: Plan for permcath replacement today with vascular surgery. Will set patient up for short session of HD afterwards and then she will have full session tommorow per her T/T/S schedule. Objective - Vital Signs Vital signs: Vital Signs - 12hr 11/08/18 11/08/18 11/09/18 22:03 23:30 00:49 Temperature 99.3 F Pulse Rate 84 98 H 98 H Respiratory 18 Rate Blood Pressure 141/84 148/66 148/66 O2 Sat by Pulse 99 Oximetry 11/09/18 04:33 Temperature 98.1 F Pulse Rate 84 Respiratory 20 Rate Blood Pressure 157/86 O2 Sat by Pulse 99 Oximetry - General Appearance General appearance: well-developed, well-nourished, appears stated age EENT: ATNC Neck: no JVD, no thyromegaly Respiratory: Present: Clear to Ascultation, Normal Exam Cardiology: regular, S1S2 Gastrointestinal: normal, normoactive bowel sounds Integumentary: no rash, warm and dry Neurologic: no focal deficit Psychiatric: mood/affect appropriate, cooperative - Lab 11/09/18 06:02 11/09/18 06:02 Most recent lab results Calcium 8.6 mg/dL (8.4-10.2) 11/09/18 06:02 - Allied health notes Allied health notes reviewed: nursing Medications & Allergies - Medications Allergies/Adverse Reactions: Allergies metformin Allergy (Verified 09/20/18 14:38) Hives metoclopramide HCl [From Reglan] Allergy (Verified 09/20/18 14:38) Hives prochlorperazine [From Compazine] Allergy (Verified 09/20/18 14:38) Hives prochlorperazine edisylate [From Compazine] Allergy (Verified 09/20/18 14:38) Hives prochlorperazine maleate [From Compazine] Allergy (Verified 09/20/18 14:38) Hives haloperidol [From Haldol] Adverse Reaction (Verified 09/20/18 14:38) Unknown PT STATES HER TEETH CHATTERED AND HER "EYES DRIFTED OFF" shellfish Allergy (Uncoded 09/20/18 14:38) Swelling Home Medications: Home Medications Medication Instructions Recorded Confirmed Last Taken Type Apixaban [Eliquis] 2.5 mg PO Q12HR #60 tablet 08/04/18 10/22/18 10/21/18 Rx 1 tab Labetalol [Normodyne TAB] 300 mg PO TID #90 tablet 08/04/18 10/22/18 10/22/18 Rx 1 tab Amitriptyline [Elavil] 10 mg PO BID 10/11/18 10/22/18 10/21/18 History 1 tab Ondansetron [Zofran TAB] 4 mg PO Q6H 10/11/18 10/22/18 10/21/18 History 1 tab hydrALAZINE [Apresoline TAB] 50 mg PO BID 10/11/18 10/22/18 10/21/18 History 1 tab Acetaminophen [Acetaminophen TAB] 650 mg PO Q4H PRN #15 tablet 10/17/18 10/22/18 10/21/18 Rx 1 tab LORazepam [Ativan] 0.5 mg PO Q8HR PRN #90 tablet 10/17/18 10/22/18 10/21/18 Rx 1 tab Lispro Insulin [Humalog] 0 unit SUB-Q ACHS units 10/17/18 10/22/18 10/21/18 Rx 0 Losartan [Cozaar] 50 mg PO QDAY #30 tablet 10/17/18 10/22/18 10/21/18 Rx 1 tab Pantoprazole [Protonix TAB] 40 mg PO DAILY #30 tablet 10/17/18 10/22/18 10/21/18 Rx 1 tab Promethazine [Phenergan SUPPOS] 25 mg HI Q6H PRN #15 supp.rect 10/17/18 10/22/18 10/21/18 Rx 1 supp Sucralfate [Carafate] 1 gm PO Q6HR 30 Days #30 oral.liqd 10/17/18 10/22/18 10/21/18 Rx 1 gm Active Medications: Generic Name Dose Route Start Last Admin Trade Name Freq PRN Reason Stop Dose Admin Acetaminophen 650 mg 11/06/18 16:26 Tylenol PO Q4H PRN Pain MILD(1-3)/Fever >100.5/CHAVES Albuterol 2.5 mg 11/06/18 16:26 Proventil IH Q4HRT PRN Shortness Of Breath Amitriptyline HCl 10 mg 11/06/18 22:00 11/08/18 22:04 Elavil PO 10 mg BID TRUDI Administration Apixaban 2.5 mg 11/06/18 22:00 11/08/18 22:05 Eliquis PO 2.5 mg Q12HR TRUDI Administration Protocol Dextrose 50 ml 11/06/18 16:26 D50w (25gm) Syringe IV PRN PRN Hypoglycemia Diphenhydramine HCl 25 mg 11/08/18 14:04 11/09/18 00:49 Benadryl IV 25 mg Q8HR PRN Administration Itching Hydralazine HCl 50 mg 11/06/18 22:00 11/08/18 22:03 Apresoline PO 50 mg BID TRUDI Administration Hydralazine HCl 20 mg 11/06/18 16:29 Apresoline IV Q6HR PRN HTN SYS>170 Sodium Chloride 100 mls @ 999 mls/hr 11/08/18 11:00 Nacl 0.9% IV ELANA PRN Hypotension Labetalol HCl 300 mg 11/06/18 20:00 11/09/18 00:49 Normodyne PO 300 mg TID TRUDI Administration Lorazepam 0.5 mg 11/06/18 16:25 Ativan PO Q8HR PRN N/V Unrelieved By zofran Losartan Potassium 50 mg 11/07/18 10:00 11/08/18 12:02 Cozaar PO 50 mg QDAY TRUDI Administration Ondansetron HCl 4 mg 11/06/18 16:26 11/09/18 00:59 Zofran IV 4 mg Q8H PRN Administration Nausea And Vomiting Ondansetron HCl 4 mg 11/06/18 17:00 11/09/18 06:06 Zofran Odt PO Not Given Q6H TRUDI Oxycodone/Acetaminophen 1 tab 11/06/18 16:53 11/08/18 22:03 Percocet 5/325 PO 1 tab Q6H PRN Administration Pain, Moderate (4-6) Pantoprazole Sodium 40 mg 11/07/18 10:00 11/08/18 12:12 Protonix PO 40 mg DAILY TRUDI Administration Promethazine HCl 25 mg 11/06/18 16:25 Phenergan HI Q6H PRN Nausea And Vomiting Sodium Chloride 10 ml 11/06/18 22:00 11/08/18 22:03 Sodium Chloride Flush Syringe 10 Ml IV 10 ml BID TRUDI Administration Sodium Chloride 10 ml 11/06/18 16:26 Sodium Chloride Flush Syringe 10 Ml IV PRN PRN LINE FLUSH Sucralfate 1 gm 11/06/18 18:00 11/09/18 06:06 Carafate PO Not Given Q6HR TRUDI
[2018-11-09] MEDS ORDERED: NACL 0.9% 100 ML IV PRN (07:57)
[2018-11-09] MEDS: SODIUM CHLORIDE FLUSH SYRINGE 10 ML IV SCH ×2 (09:06→21:25)
[2018-11-09] MEDS: ELAVIL PO SCH ×2 (10:00→21:25)
[2018-11-09] MEDS: COZAAR PO SCH (10:00)
[2018-11-09] MEDS: APRESOLINE PO SCH ×2 (10:00→21:24)
[2018-11-09] MEDS: PROTONIX PO SCH (10:00)
[2018-11-09] MEDS: ELIQUIS PO SCH ×2 (10:00→21:23)
[2018-11-09] MEDS: DILAUDID IV PRN ×2 (11:55→21:21)
--- NOTE | 2018-11-09 15:22 | Progress Note ---
Assessment and Plan Assessment and plan: 37 YO Female with ESRD on HD (T,R,Sa), HTN, HLD, CVA with LHP, 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 Pt states that she went to her dialysis center for routine scheduled dialysis today but was unable to undergo dialysis due to uncontrolled hypertension. Pt found to have blood pressure of 232/131. EMS notified and upon arrival the patient was found to have Hypertensive Urgency. Pt transported to [facility]. Pt seen and evaluated in ED and found to have ESRD as well as Hypertensive Urgency. Pt also complains of left leg pain. Pt states that pain is 4/10, persistent, worsened with weight bearing, not relieved with rest. Pt acknowledges noncompliance with antihypertensive medication over the past 4 days. LLE Duplex ordered at time of admission-results pending. Pt admitted to medical floor. Nephrology consulted in ED for dialysis. Pt denies fever, chills, CP, palpitations, Trauma, BRBPR, unintentional weight loss, or night sweats, unilateral leg swelling, calf pain, prolonged travel/immobility, Individual/Family history of DVT/PE/Blood Clotting Disorders. Pt previously admitted on 10/11/18. All listed medication reconciled at time of admission. - End stage renal disease on dialysis Pt with malfunctioning femoral vascath - Vascular surgeon consulted Nephrology consulted in ED, Dialysis as per renal team, monitor uop q shift, avoid nephrotoxic agents. As well as on - Diabetic foot ulcer local wound care consulted, will with his business and this was LLE duplex, pain control. Pt on therapeutic anticoagulation at time of exam. -Hypertensive urgency - improved Monitor bp q shift, resume prehospital antihypertensive therapy, IV hydralazine prn. Non Compliance -Counselling provided - HLD (hyperlipidemia) low cholesterol diet, Commence statin - Thrombus IVC Thrombus: chronic: On therapeutic anticoagulation. Continue therapeutic anticoagualtion with eliquis. - Diabetes ADA diet, accu check SSI CHronic Pain syndrome Continue current pain control Add low dose Dilaudid for left leg pain Await removal of femoral line Hyperkalemia -Except correction with Dialysis. - DVT prophylaxis Continue therapeutic anticoagulation. Disposition: D/c back to [facility] after vascular repair of malfunctioning vascath and dialysis resumed History Interval history: Patient seen and examined, complains of pain in the left leg area, states that oral pain medication is not managing her pain. Hospitalist Physical - Physical exam Narrative exam: General appearance: Present: mild distress - EENT Eyes: Present: PERRL ENT: hearing intact, clear oral mucosa - Neck Neck: Present: supple, normal ROM - Respiratory Respiratory effort: normal Respiratory: bilateral: CTA - Cardiovascular Heart Sounds: Present: S1 & S2. Absent: rub, click - Extremities Extremity abnormal: ulceration, other (LLE, Dressing Clean, Dry, Intact), left lower ext edema Peripheral Pulses: within normal limits - Abdominal General gastrointestinal: Present: soft, non-tender, non-distended, normal bowel sounds Female genitourinary: Present: normal - Integumentary Integumentary: Present: clear, warm, dry - Musculoskeletal Musculoskeletal: gait normal, strength equal bilaterally - Psychiatric Psychiatric: appropriate mood/affect, intact judgment & insight - Neurologic Neurologic: CNII-XII intact, moves all extremities - Constitutional Vitals: Temp Pulse Resp BP Pulse Ox 97.8 F 88 18 190/96 97 11/09/18 11:31 11/09/18 11:31 11/09/18 11:31 11/09/18 11:31 11/09/18 11:31 General appearance: Present: mild distress Results - Labs CBC & Chem 7: 11/10/18 05:51 11/10/18 05:51 Labs: Laboratory Last Values WBC 5.8 K/mm3 (4.5-11.0) 11/09/18 06:02 RBC 3.53 M/mm3 (3.65-5.03) L 11/09/18 06:02 Hgb 11.0 gm/dl (10.1-14.3) 11/09/18 06:02 Hct 34.9 % (30.3-42.9) 11/09/18 06:02 MCV 99 fl (79-97) H 11/09/18 06:02 MCH 31 pg (28-32) 11/09/18 06:02 MCHC 32 % (30-34) 11/09/18 06:02 RDW 19.8 % (13.2-15.2) H 11/09/18 06:02 Plt Count 250 K/mm3 (140-440) 11/09/18 06:02 Lymph % (Auto) 30.3 % (13.4-35.0) 11/09/18 06:02 [place] % (Auto) 8.3 % (0.0-7.3) H 11/09/18 06:02 Eos % (Auto) 6.7 % (0.0-4.3) H 11/09/18 06:02 Baso % (Auto) 0.6 % (0.0-1.8) 11/09/18 06:02 Lymph # 1.7 K/mm3 (1.2-5.4) 11/09/18 06:02 [place] # 0.5 K/mm3 (0.0-0.8) 11/09/18 06:02 Eos # 0.4 K/mm3 (0.0-0.4) 11/09/18 06:02 Baso # 0.0 K/mm3 (0.0-0.1) 11/09/18 06:02 Seg Neutrophils % 54.1 % (40.0-70.0) 11/09/18 06:02 Seg Neutrophils # 3.1 K/mm3 (1.8-7.7) 11/09/18 06:02 PT 13.4 Sec. (12.2-14.9) 11/06/18 18:02 INR 0.96 (0.87-1.13) 11/06/18 18:02 Sodium 140 mmol/L (137-145) 11/09/18 06:02 Potassium 5.2 mmol/L (3.6-5.0) H D 11/09/18 06:02 Chloride 104.0 mmol/L (98-107) 11/09/18 06:02 Carbon Dioxide 22 mmol/L (22-30) 11/09/18 06:02 Anion Gap 19 mmol/L 11/09/18 06:02 BUN 63 mg/dL (7-17) H 11/09/18 06:02 Creatinine 7.4 mg/dL (0.7-1.2) H 11/09/18 06:02 Estimated GFR 7 ml/min 11/09/18 06:02 BUN/Creatinine Ratio 9 % 11/09/18 06:02 Glucose 89 mg/dL (65-100) 11/09/18 06:02 Calcium 8.6 mg/dL (8.4-10.2) 11/09/18 06:02 Total Bilirubin 0.20 mg/dL (0.1-1.2) 11/09/18 06:02 AST 11 units/L (5-40) 11/09/18 06:02 ALT 5 units/L (7-56) L 11/09/18 06:02 Alkaline Phosphatase 73 units/L (35-129) 11/09/18 06:02 Total Protein 6.8 g/dL (6.3-8.2) 11/09/18 06:02 Albumin 3.4 g/dL (3.9-5) L 11/09/18 06:02 Albumin/Globulin Ratio 1.0 % 11/09/18 06:02 Active Medications - Current Medications Current Medications: Generic Name Dose Route Start Last Admin Trade Name Freq PRN Reason Stop Dose Admin Acetaminophen 650 mg 11/06/18 16:26 Tylenol PO Q4H PRN Pain MILD(1-3)/Fever >100.5/CHAVES Albuterol 2.5 mg 11/06/18 16:26 Proventil IH Q4HRT PRN Shortness Of Breath Amitriptyline HCl 10 mg 11/06/18 22:00 11/08/18 22:04 Elavil PO 10 mg BID TRUDI Administration Apixaban 2.5 mg 11/06/18 22:00 11/08/18 22:05 Eliquis PO 2.5 mg Q12HR TRUDI Administration Protocol Dextrose 50 ml 11/06/18 16:26 D50w (25gm) Syringe IV PRN PRN Hypoglycemia Diphenhydramine HCl 25 mg 11/08/18 14:04 11/09/18 09:04 Benadryl IV 25 mg Q8HR PRN Administration Itching Hydralazine HCl 50 mg 11/06/18 22:00 11/08/18 22:03 Apresoline PO 50 mg BID TRUDI Administration Hydralazine HCl 20 mg 11/06/18 16:29 Apresoline IV Q6HR PRN HTN SYS>170 Hydromorphone HCl 0.5 mg 11/09/18 11:36 11/09/18 11:55 Dilaudid IV 0.5 mg Q6H PRN Administration Pain , Severe (7-10) Sodium Chloride 100 mls @ 999 mls/hr 11/08/18 11:00 Nacl 0.9% IV ELANA PRN Hypotension Sodium Chloride 100 mls @ 999 mls/hr 11/09/18 07:57 Nacl 0.9% IV ELANA PRN Hypotension Labetalol HCl 300 mg 11/06/18 20:00 11/09/18 00:49 Normodyne PO 300 mg TID TRUDI Administration Lorazepam 0.5 mg 11/06/18 16:25 Ativan PO Q8HR PRN N/V Unrelieved By zofran Losartan Potassium 50 mg 11/07/18 10:00 11/08/18 12:02 Cozaar PO 50 mg QDAY TRUDI Administration Ondansetron HCl 4 mg 11/06/18 16:26 11/09/18 00:59 Zofran IV 4 mg Q8H PRN Administration Nausea And Vomiting Ondansetron HCl 4 mg 11/06/18 17:00 11/09/18 06:06 Zofran Odt PO Not Given Q6H TRUDI Oxycodone/Acetaminophen 1 tab 11/06/18 16:53 11/08/18 22:03 Percocet 5/325 PO 1 tab Q6H PRN Administration Pain, Moderate (4-6) Pantoprazole Sodium 40 mg 11/07/18 10:00 11/08/18 12:12 Protonix PO 40 mg DAILY TRUDI Administration Promethazine HCl 25 mg 11/06/18 16:25 Phenergan MI Q6H PRN Nausea And Vomiting Sodium Chloride 10 ml 11/06/18 22:00 11/09/18 09:06 Sodium Chloride Flush Syringe 10 Ml IV 10 ml BID TRUDI Administration Sodium Chloride 10 ml 11/06/18 16:26 Sodium Chloride Flush Syringe 10 Ml IV PRN PRN LINE FLUSH Sucralfate 1 gm 11/06/18 18:00 11/09/18 06:06 Carafate PO Not Given Q6HR TRUDI
[2018-11-09] MEDS ORDERED: HEPARIN 10,000 UNITS/10 ML ONE (16:20)
[2018-11-09] MEDS ORDERED: HEPARIN/NS 5000 UNIT/500ML(CATH LAB) 1,000 ML IR ONE (16:20)
[2018-11-09] MEDS: XYLOCAINE 2% INFILTRATI ONE ×2 (17:58→18:05)
[2018-11-09] MEDS: SUBLIMAZE ONE ×3 (17:58→18:10)
[2018-11-09] MEDS: VERSED ONE ×3 (17:58→18:10)
--- NOTE | 2018-11-09 18:28 | Consultation ---
History of Present Illness - Reason for Consult Consult date: 11/09/18 Malfunctioning Left femoral permacath Requesting physician: ADA PERDOMO - History of Present Illness This pt is a 37yo AAF admitted via the ER due to Htn urgency. She has ESRD with a h/o non-compliance. She currently uses a femoral pc for HD. This is reported as non-functional and a vascular surgery consult is requested to further evaluate. Past History Past Medical History: diabetes, dialysis, ESRD, hypertension, hyperlipidemia, stroke Past Surgical History: cholecystectomy, Other (AV Fistula, Gastric Pacemaker, attempt AVG thrombectomy, Femoral PC placement) Social history: . denies: smoking, alcohol abuse, prescription drug abuse Family history: diabetes, hypertension Medications and Allergies Allergies Allergy/AdvReac Type Severity Reaction Status Date / Time metformin Allergy Hives Verified 11/09/18 16:37 metoclopramide HCl Allergy Hives Verified 11/09/18 16:37 [From Reglan] prochlorperazine Allergy Hives Verified 11/09/18 16:37 [From Compazine] prochlorperazine edisylate Allergy Hives Verified 11/09/18 16:37 [From Compazine] prochlorperazine maleate Allergy Hives Verified 11/09/18 16:37 [From Compazine] haloperidol [From Haldol] AdvReac Unknown Verified 11/09/18 16:37 fish Allergy Severe Swelling Uncoded 11/09/18 16:35 to throat Home Medications Medication Instructions Recorded Confirmed Last Taken Type Apixaban [Eliquis] 2.5 mg PO Q12HR #60 tablet 08/04/18 10/22/18 10/21/18 Rx 1 tab Labetalol [Normodyne TAB] 300 mg PO TID #90 tablet 08/04/18 10/22/18 10/22/18 Rx 1 tab Amitriptyline [Elavil] 10 mg PO BID 10/11/18 10/22/18 10/21/18 History 1 tab Ondansetron [Zofran TAB] 4 mg PO Q6H 10/11/18 10/22/18 10/21/18 History 1 tab hydrALAZINE [Apresoline TAB] 50 mg PO BID 10/11/18 10/22/18 10/21/18 History 1 tab Acetaminophen [Acetaminophen TAB] 650 mg PO Q4H PRN #15 tablet 10/17/18 10/22/18 10/21/18 Rx 1 tab LORazepam [Ativan] 0.5 mg PO Q8HR PRN #90 tablet 10/17/18 10/22/18 10/21/18 Rx 1 tab Lispro Insulin [Humalog] 0 unit SUB-Q ACHS units 10/17/18 10/22/18 10/21/18 Rx 0 Losartan [Cozaar] 50 mg PO QDAY #30 tablet 10/17/18 10/22/18 10/21/18 Rx 1 tab Pantoprazole [Protonix TAB] 40 mg PO DAILY #30 tablet 10/17/18 10/22/18 10/21/18 Rx 1 tab Promethazine [Phenergan SUPPOS] 25 mg [place] Q6H PRN #15 supp.rect 10/17/18 10/22/18 10/21/18 Rx 1 supp Sucralfate [Carafate] 1 gm PO Q6HR 30 Days #30 oral.liqd 10/17/18 10/22/18 0 10/21/18 Rx 1 gm Active Meds: Active Medications Acetaminophen (Tylenol) 650 mg PO Q4H PRN PRN Reason: Pain MILD(1-3)/Fever >100.5/CHAVES Albuterol (Proventil) 2.5 mg IH Q4HRT PRN PRN Reason: Shortness Of Breath Amitriptyline HCl (Elavil) 10 mg PO BID [facility] Last Admin: 11/08/18 22:04 Dose: 10 mg Documented by: Apixaban (Eliquis) 2.5 mg PO Q12HR [facility]; Protocol Last Admin: 11/08/18 22:05 Dose: 2.5 mg Documented by: Dextrose (D50w (25gm) Syringe) 50 ml IV PRN PRN PRN Reason: Hypoglycemia Diphenhydramine HCl (Benadryl) 25 mg IV Q8HR PRN PRN Reason: Itching Last Admin: 11/09/18 09:04 Dose: 25 mg Documented by: Hydralazine HCl (Apresoline) 50 mg PO BID [facility] Last Admin: 11/08/18 22:03 Dose: 50 mg Documented by: Hydralazine HCl (Apresoline) 20 mg IV Q6HR PRN PRN Reason: HTN SYS>170 Hydromorphone HCl (Dilaudid) 0.5 mg IV Q6H PRN PRN Reason: Pain , Severe (7-10) Last Admin: 11/09/18 11:55 Dose: 0.5 mg Documented by: Sodium Chloride (Nacl 0.9%) 100 mls @ 999 mls/hr IV ELANA PRN PRN Reason: Hypotension Sodium Chloride (Nacl 0.9%) 100 mls @ 999 mls/hr IV ELANA PRN PRN Reason: Hypotension Labetalol HCl (Normodyne) 300 mg PO TID [facility] Last Admin: 11/09/18 08:00 Dose: Not Given Documented by: Lorazepam (Ativan) 0.5 mg PO Q8HR PRN PRN Reason: N/V Unrelieved By zofran Losartan Potassium (Cozaar) 50 mg PO QDAY [facility] Last Admin: 11/08/18 12:02 Dose: 50 mg Documented by: Ondansetron HCl (Zofran) 4 mg IV Q8H PRN PRN Reason: Nausea And Vomiting Last Admin: 11/09/18 00:59 Dose: 4 mg Documented by: Ondansetron HCl (Zofran Odt) 4 mg PO Q6H [facility] Last Admin: 11/09/18 11:00 Dose: Not Given Documented by: Oxycodone/Acetaminophen (Percocet 5/325) 1 tab PO Q6H PRN PRN Reason: Pain, Moderate (4-6) Last Admin: 11/08/18 22:03 Dose: 1 tab Documented by: Pantoprazole Sodium (Protonix) 40 mg PO DAILY [facility] Last Admin: 11/08/18 12:12 Dose: 40 mg Documented by: Promethazine HCl (Phenergan) 25 mg [place] Q6H PRN PRN Reason: Nausea And Vomiting Sodium Chloride (Sodium Chloride Flush Syringe 10 Ml) 10 ml IV BID [facility] Last Admin: 11/09/18 09:06 Dose: 10 ml Documented by: Sodium Chloride (Sodium Chloride Flush Syringe 10 Ml) 10 ml IV PRN PRN PRN Reason: LINE FLUSH Sucralfate (Carafate) 1 gm PO Q6HR [facility] Last Admin: 11/09/18 12:00 Dose: Not Given Documented by: Review of Systems All systems: negative Exam - Constitutional Vitals: Temp Pulse Resp BP Pulse Ox 97.8 F 90 17 190/96 98 11/09/18 11:31 11/09/18 16:32 11/09/18 16:32 11/09/18 11:31 11/09/18 16:32 General appearance: Present: no acute distress - EENT Eyes: Present: EOM intact ENT: hearing intact - Neck Neck: Present: supple - Respiratory Respiratory effort: normal - Extremities Extremities: abnormal (Left femoral PC in place without obvious issue) - Psychiatric Psychiatric: cooperative - Neurologic Neurologic: no focal deficits Results - Labs CBC & Chem 7: 11/09/18 06:02 11/09/18 06:02 Labs: Abnormal lab results 11/09/18 11/09/18 Range/Units 06:02 06:02 RBC 3.53 L (3.65-5.03) M/mm3 MCV 99 H (79-97) fl RDW 19.8 H (13.2-15.2) % [place] % (Auto) 8.3 H (0.0-7.3) % Eos % (Auto) 6.7 H (0.0-4.3) % Potassium 5.2 H D (3.6-5.0) mmol/L BUN 63 H (7-17) mg/dL Creatinine 7.4 H (0.7-1.2) mg/dL ALT 5 L (7-56) units/L Albumin 3.4 L (3.9-5) g/dL Assessment and Plan Pt with ESRD and malfunctioning left femoral PermaCath. Recommend exchanging permacath. R,B,A explained and she agrees. This will be performed in the cath lab nurse utilizing fluoroscopic and u/s guidance. - Patient Problems (1) Hemodialysis catheter malfunction Current Visit: Yes Status: Acute (2) ESRD on hemodialysis Current Visit: No Status: Acute (3) Hypertensive urgency Current Visit: Yes Status: Acute (4) Missed dialysis Current Visit: Yes Status: Acute (5) HLD (hyperlipidemia) Current Visit: No Status: Acute Qualifiers: Hyperlipidemia type: mixed hyperlipidemia Qualified Code(s): E78.2 - Mixed hyperlipidemia (6) Hypertensive emergency Current Visit: No Status: Acute (7) CVA (cerebral vascular accident) Current Visit: No Status: Chronic Qualifiers: CVA mechanism: thrombosis Precerebral and cerebral artery: middle cerebral artery Laterality of affected vessel: right Qualified Code(s): I63.311 - C erebral infarction due to thrombosis of right middle cerebral artery (8) HTN (hypertension) Current Visit: No Status: Chronic Qualifiers: Hypertension type: essential hypertension (9) Type 2 diabetes mellitus with diabetic chronic kidney disease Current Visit: No Status: Chronic Qualifiers: Chronic kidney disease stage: on chronic dialysis (10) Non-compliance Current Visit: Yes Status: Acute
--- NOTE | 2018-11-09 18:41 | Operative Report ---
Operative Report Operative Report: Operative note: Date: 11/07/2018 Preoperative diagnosis: Malfunctioning dialysis catheter on the left femoral Postoperative diagnosis: Same. Operation: Left femoral PermCath exchange Surgeon: January Guerrero. Asst.: None Anesthesia: local with moderate sedation. EBL: Minimal Findings: Permacath flushes and pullback well Indications: 37-year-old female with previously occluded prominent accesses and now on dialysis via left femoral permacath set having no function, she was explained risks, benefits and alternatives of PermCath exchange just to proceed and signed informed consent. Operative details: Patient was brought to woven label designer and positioned in the supine position with left groin PermCath prepped and draped in sterile fashion. A timeout performed and all team members in the agreement, we J wire was inserted and advanced under fluoroscopic guidance through port of PermCath and advanced to inferior vena cava. Exit site was infiltrated with lidocaine around the PermCath site. Small incision was made just at the PermCath skin insertion point and dilated with hemostat, dissecting around cuff. Old permacath was removed and new PermCath 44 cm was advanced over the wire and inserted through the previous orifice into the proximal IVC. Wire was removed and ports were flushed with saline and checked for good blood flow. Cath ports were locked with heparin 2.5 mL in each. Patient tolerated the procedure well and transferred to PACU in stable condition.
[2018-11-10] MEDS: CARAFATE PO SCH ×4 (00:27→18:23)
[2018-11-10] MEDS: ZOFRAN ODT PO SCH ×4 (05:44→23:28)
[2018-11-10 06:26] LABS: Basophils % (Auto) 0.8 % (0.0-1.8); Eosinophils # (Auto) 0.4 K/mm3 (0.0-0.4); Eosinophils % (Auto) 7.6 % (0.0-4.3); Hematocrit 32.5 % (30.3-42.9); Hemoglobin 10.4 gm/dl (10.1-14.3); Lymphocytes # (Auto) 1.5 K/mm3 (1.2-5.4); Mean Corpuscular HGB Conc 32 % (30-34); Mean Corpuscular Volume 98 fl (79-97); Monocytes # (Auto) 0.5 K/mm3 (0.0-0.8); Monocytes % (Auto) 9.6 % (0.0-7.3); Platelet Count 234 K/mm3 (140-440); Red Blood Count 3.32 M/mm3 (3.65-5.03); Red Cell Distribution Width 19.2 % (13.2-15.2)
[2018-11-10 06:54] LABS: Albumin 3.3 g/dL (3.9-5); BUN/Creatinine Ratio 8; Blood Urea Nitrogen 67 mg/dL (7-17); Calcium 8.7 mg/dL (8.4-10.2); Hemolysis Index 5
[2018-11-10 07:09] LABS: Alanine Aminotransferase < 5 units/L (7-56)
--- NOTE | 2018-11-10 07:44 | Progress Note ---
Assessment and Plan Assessment and plan: 37 YO Female with ESRD on HD (T,R,Sa), HTN, HLD, CVA with LHP, 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 Pt states that she went to her dialysis center for routine scheduled dialysis today but was unable to undergo dialysis due to uncontrolled hypertension. Pt found to have blood pressure of 232/131. EMS notified and upon arrival the patient was found to have Hypertensive Urgency. Pt transported to [facility]. Pt seen and evaluated in ED and found to have ESRD as well as Hypertensive Urgency. Pt also complains of left leg pain. Pt states that pain is 4/10, persistent, worsened with weight bearing, not relieved with rest. Pt acknowledges noncompliance with antihypertensive medication over the past 4 days. LLE Duplex ordered at time of admission-results pending. Pt admitted to medical floor. Nephrology consulted in ED for dialysis. Pt denies fever, chills, CP, palpitations, Trauma, BRBPR, unintentional weight loss, or night sweats, unilateral leg swelling, calf pain, prolonged travel/immobility, Individual/Family history of DVT/PE/Blood Clotting Disorders. Pt previously admitted on 10/11/18. All listed medication reconciled at time of admission. patient underwent a permcath exchanged and noted to be functioning. will monitor for effective dialysis and hopefully discharge back to SNF in am if K is corrected During hosptialization, patient was noted to have a poor diatery habit, including obtaining food from outside restaurant. Counselling extensively was provided - End stage renal disease on dialysis Pt with malfunctioning femoral vascath - Vascular surgeon consulted Nephrology consulted in ED, Dialysis as per renal team, monitor uop q shift, avoid nephrotoxic agents. As well as on - Diabetic foot ulcer local wound care consulted, will with his business and this was LLE duplex, pain control. Pt on therapeutic anticoagulation at time of exam. -Hypertensive urgency - improved Monitor bp q shift, resume prehospital antihypertensive therapy, IV hydralazine prn. Non Compliance -Counselling provided - HLD (hyperlipidemia) low cholesterol diet, Commence statin - Thrombus IVC Thrombus: chronic: On therapeutic anticoagulation. Continue therapeutic anticoagualtion with eliquis. - Diabetes ADA diet, accu check SSI CHronic Pain syndrome Continue current pain control Add low dose Dilaudid for left leg pain Await removal of femoral line Hyperkalemia -Except correction with Dialysis. -Give kayxalate today x 2 - DVT prophylaxis Continue therapeutic anticoagulation. Disposition: D/c back to SNF PLAN FOR DISCHARGE TODAY. History Interval history: Patient seen and examined, no new pain. Having dialysis today Hospitalist Physical - Physical exam Narrative exam: General appearance: Present: no distress - EENT Eyes: Present: PERRL ENT: hearing intact, clear oral mucosa - Neck Neck: Present: supple, normal ROM - Respiratory Respiratory effort: normal Respiratory: bilateral: CTA - Cardiovascular Heart Sounds: Present: S1 & S2. Absent: rub, click - Extremities Extremity abnormal: ulceration, other (LLE, Dressing Clean, Dry, Intact), left lower ext edema Peripheral Pulses: within normal limits - Abdominal General gastrointestinal: Present: soft, non-tender, non-distended, normal bowel sounds Female genitourinary: Present: normal - Integumentary Integumentary: Present: clear, warm, dry - Musculoskeletal Musculoskeletal: gait normal, strength equal bilaterally - Psychiatric Psychiatric: appropriate mood/affect, intact judgment & insight - Neurologic Neurologic: CNII-XII intact, moves all extremities - Constitutional Vitals: Temp Pulse Resp BP Pulse Ox 98.4 F 84 18 107/48 97 11/10/18 05:23 11/10/18 05:23 11/10/18 05:23 11/10/18 05:23 11/10/18 05:23 General appearance: Present: mild distress Results - Labs CBC & Chem 7: 11/10/18 05:51 11/10/18 05:51 Labs: Laboratory Last Values WBC 5.4 K/mm3 (4.5-11.0) 11/10/18 05:51 RBC 3.32 M/mm3 (3.65-5.03) L 11/10/18 05:51 Hgb 10.4 gm/dl (10.1-14.3) 11/10/18 05:51 Hct 32.5 % (30.3-42.9) 11/10/18 05:51 MCV 98 fl (79-97) H 11/10/18 05:51 MCH 31 pg (28-32) 11/10/18 05:51 MCHC 32 % (30-34) 11/10/18 05:51 RDW 19.2 % (13.2-15.2) H 11/10/18 05:51 Plt Count 234 K/mm3 (140-440) 11/10/18 05:51 Lymph % (Auto) 28.0 % (13.4-35.0) 11/10/18 05:51 [place] % (Auto) 9.6 % (0.0-7.3) H 11/10/18 05:51 Eos % (Auto) 7.6 % (0.0-4.3) H 11/10/18 05:51 Baso % (Auto) 0.8 % (0.0-1.8) 11/10/18 05:51 Lymph # 1.5 K/mm3 (1.2-5.4) 11/10/18 05:51 [place] # 0.5 K/mm3 (0.0-0.8) 11/10/18 05:51 Eos # 0.4 K/mm3 (0.0-0.4) 11/10/18 05:51 Baso # 0.0 K/mm3 (0.0-0.1) 11/10/18 05:51 Seg Neutrophils % 54.0 % (40.0-70.0) 11/10/18 05:51 Seg Neutrophils # 2.9 K/mm3 (1.8-7.7) 11/10/18 05:51 PT 13.4 Sec. (12.2-14.9) 11/06/18 18:02 INR 0.96 (0.87-1.13) 11/06/18 18:02 Sodium 141 mmol/L (137-145) 11/10/18 05:51 Potassium 5.2 mmol/L (3.6-5.0) H 11/10/18 05:51 Chloride 105.6 mmol/L (98-107) 11/10/18 05:51 Carbon Dioxide 20 mmol/L (22-30) L 11/10/18 05:51 Anion Gap 21 mmol/L 11/10/18 05:51 BUN 67 mg/dL (7-17) H 11/10/18 05:51 Creatinine 8.5 mg/dL (0.7-1.2) H 11/10/18 05:51 Estimated GFR 6 ml/min 11/10/18 05:51 BUN/Creatinine Ratio 8 % 11/10/18 05:51 Glucose 99 mg/dL (65-100) 11/10/18 05:51 Calcium 8.7 mg/dL (8.4-10.2) 11/10/18 05:51 Total Bilirubin 0.20 mg/dL (0.1-1.2) 11/10/18 05:51 AST 8 units/L (5-40) 11/10/18 05:51 ALT < 5 units/L (7-56) L 11/10/18 05:51 Alkaline Phosphatase 74 units/L (35-129) 11/10/18 05:51 Total Protein 6.5 g/dL (6.3-8.2) 11/10/18 05:51 Albumin 3.3 g/dL (3.9-5) L 11/10/18 05:51 Albumin/Globulin Ratio 1.0 % 11/10/18 05:51 Active Medications - Current Medications Current Medications: Generic Name Dose Route Start Last Admin Trade Name Freq PRN Reason Stop Dose Admin Acetaminophen 650 mg 11/06/18 16:26 Tylenol PO Q4H PRN Pain MILD(1-3)/Fever >100.5/CHAVES Albuterol 2.5 mg 11/06/18 16:26 Proventil IH Q4HRT PRN Shortness Of Breath Amitriptyline HCl 10 mg 11/06/18 22:00 11/09/18 21:25 Elavil PO 10 mg BID TRUDI Administration Apixaban 2.5 mg 11/06/18 22:00 11/09/18 21:23 Eliquis PO 2.5 mg Q12HR TRUDI Administration Protocol Dextrose 50 ml 11/06/18 16:26 D50w (25gm) Syringe IV PRN PRN Hypoglycemia Diphenhydramine HCl 25 mg 11/08/18 14:04 11/09/18 21:19 Benadryl IV 25 mg Q8HR PRN Administration Itching Hydralazine HCl 50 mg 11/06/18 22:00 11/09/18 21:24 Apresoline PO 50 mg BID TRUDI Administration Hydralazine HCl 20 mg 11/06/18 16:29 Apresoline IV Q6HR PRN HTN SYS>170 Hydromorphone HCl 0.5 mg 11/09/18 11:36 11/09/18 21:21 Dilaudid IV 0.5 mg Q6H PRN Administration Pain , Severe (7-10) Sodium Chloride 100 mls @ 999 mls/hr 11/08/18 11:00 Nacl 0.9% IV ELANA PRN Hypotension Sodium Chloride 100 mls @ 999 mls/hr 11/09/18 07:57 Nacl 0.9% IV ELANA PRN Hypotension Labetalol HCl 300 mg 11/06/18 20:00 11/09/18 21:23 Normodyne PO 300 mg TID TRUDI Administration Lorazepam 0.5 mg 11/06/18 16:25 Ativan PO Q8HR PRN N/V Unrelieved By zofran Losartan Potassium 50 mg 11/07/18 10:00 11/09/18 10:00 Cozaar PO Not Given QDAY [facility] Ondansetron HCl 4 mg 11/06/18 16:26 11/09/18 00:59 Zofran IV 4 mg Q8H PRN Administration Nausea And Vomiting Ondansetron HCl 4 mg 11/06/18 17:00 11/10/18 05:44 Zofran Odt PO Not Given Q6H [facility] Oxycodone/Acetaminophen 1 tab 11/06/18 16:53 11/08/18 22:03 Percocet 5/325 PO 1 tab Q6H PRN Administration Pain, Moderate (4-6) Pantoprazole Sodium 40 mg 11/07/18 10:00 11/09/18 10:00 Protonix PO Not Given DAILY [facility] Promethazine HCl 25 mg 11/06/18 16:25 Phenergan [place] Q6H PRN Nausea And Vomiting Sodium Chloride 10 ml 11/06/18 22:00 11/09/18 21:25 Sodium Chloride Flush Syringe 10 Ml IV 10 ml BID TRUDI Administration Sodium Chloride 10 ml 11/06/18 16:26 Sodium Chloride Flush Syringe 10 Ml IV PRN PRN LINE FLUSH Sodium Polystyrene Sulfonate 30 gm 11/10/18 08:00 Kionex PO 11/10/18 12:01 Q6HR [facility] Sucralfate 1 gm 11/06/18 18:00 11/10/18 05:29 Carafate PO Not Given Q6HR [facility]
[2018-11-10] MEDS: DILAUDID IV PRN ×3 (08:14→21:36)
[2018-11-10] MEDS: KIONEX PO SCH ×3 (09:17→15:23)
[2018-11-10] MEDS: NORMODYNE PO SCH ×3 (09:17→21:35)
[2018-11-10] MEDS: ELAVIL PO SCH ×2 (10:00→22:18)
[2018-11-10] MEDS: ELIQUIS PO SCH ×2 (10:00→22:18)
[2018-11-10] MEDS: SODIUM CHLORIDE FLUSH SYRINGE 10 ML IV SCH ×2 (10:00→21:39)
[2018-11-10] MEDS: COZAAR PO SCH (10:00)
[2018-11-10] MEDS: BENADRYL IV PRN ×2 (12:24→22:32)
[2018-11-10] MEDS ORDERED: NACL 0.9 (PRIMING MACHINE ONLY DIALYSIS) MC ONE (12:32)
--- NOTE | 2018-11-10 13:36 | Progress Note ---
Assessment and Plan - Patient Problems (1) ESRD on hemodialysis Current Visit: No Status: Acute Plan to address problem: cont HD on TTS schedule. (2) Diabetes Current Visit: Yes Status: Chronic Qualifiers: Diabetes mellitus type: type 2 Diabetes mellitus complication status: with kidney complications Chronic kidney disease stage: on chronic dialysis Plan to address problem: Management per primary team. (3) Anemia in CKD (chronic kidney disease) Current Visit: Yes Status: Acute Qualifiers: Chronic kidney disease stage: on chronic dialysis Qualified Code(s): N18.6 - End stage renal disease; D63.1 - Anemia in chronic kidney disease; Z99.2 - Dependence on renal dialysis Plan to address problem: Anemia goals are met at this time and there is no acute need for Epogen therapy. We'll continue to monitor. (4) Hypertensive chronic kidney disease with stage 5 chronic kidney disease or end stage renal disease Current Visit: Yes Status: Chronic Plan to address problem: Blood pressures are more stable at this time. Will continue on her current antihypertensive regimen. We'll monitor Subjective Date of service: 11/10/18 Principal diagnosis: HTN, CHAVES, ESRD Interval history: Pt seen and examined during HD, s/p Permcath exchange on 11/09, functioning well. Objective - Vital Signs Vital signs: Vital Signs - 12hr 11/10/18 05:23 Temperature 98.4 F Pulse Rate 84 Respiratory 18 Rate Blood Pressure 107/48 O2 Sat by Pulse 97 Oximetry - General Appearance General appearance: well-developed, well-nourished, appears stated age EENT: ATNC, PERRL, mucous membranes moist Neck: no JVD Respiratory: Present: Clear to Ascultation Cardiology: regular, S1S2 Gastrointestinal: normoactive bowel sounds Integumentary: no rash, other (no edema ) Neurologic: no focal deficit, alert and oriented x3, strength 5/5, CN 3-12 intact Psychiatric: mood/affect appropriate, cooperative - Lab 11/10/18 05:51 11/10/18 05:51 Most recent lab results Calcium 8.7 mg/dL (8.4-10.2) 11/10/18 05:51 Medications & Allergies - Medications Allergies/Adverse Reactions: Allergies metformin Allergy (Verified 11/09/18 16:37) Hives metoclopramide HCl [From Reglan] Allergy (Verified 11/09/18 16:37) Hives prochlorperazine [From Compazine] Allergy (Verified 11/09/18 16:37) Hives prochlorperazine edisylate [From Compazine] Allergy (Verified 11/09/18 16:37) Hives prochlorperazine maleate [From Compazine] Allergy (Verified 11/09/18 16:37) Hives haloperidol [From Haldol] Adverse Reaction (Verified 11/09/18 16:37) Unknown PT STATES HER TEETH CHATTERED AND HER "EYES DRIFTED OFF" fish Allergy (Severe, Uncoded 11/09/18 16:35) Swelling to throat Home Medications: Home Medications Medication Instructions Recorded Confirmed Last Taken Type Apixaban [Eliquis] 2.5 mg PO Q12HR #60 tablet 08/04/18 10/22/18 10/21/18 Rx 1 tab Labetalol [Normodyne TAB] 300 mg PO TID #90 tablet 08/04/18 10/22/18 10/22/18 Rx 1 tab Amitriptyline [Elavil] 10 mg PO BID 10/11/18 10/22/18 10/21/18 History 1 tab Ondansetron [Zofran TAB] 4 mg PO Q6H 10/11/18 10/22/18 10/21/18 History 1 tab hydrALAZINE [Apresoline TAB] 50 mg PO BID 10/11/18 10/22/18 10/21/18 History 1 tab Acetaminophen [Acetaminophen TAB] 650 mg PO Q4H PRN #15 tablet 10/17/18 10/22/18 10/21/18 Rx 1 tab LORazepam [Ativan] 0.5 mg PO Q8HR PRN #90 tablet 10/17/18 10/22/18 10/21/18 Rx 1 tab Lispro Insulin [Humalog] 0 unit SUB-Q ACHS units 10/17/18 10/22/18 10/21/18 Rx 0 Losartan [Cozaar] 50 mg PO QDAY #30 tablet 10/17/18 10/22/18 10/21/18 Rx 1 tab Pantoprazole [Protonix TAB] 40 mg PO DAILY #30 tablet 10/17/18 10/22/18 10/21/18 Rx 1 tab Promethazine [Phenergan SUPPOS] 25 mg SC Q6H PRN #15 supp.rect 10/17/18 10/22/18 10/21/18 Rx 1 supp Sucralfate [Carafate] 1 gm PO Q6HR 30 Days #30 oral.liqd 10/17/18 10/22/18 10/21/18 Rx 1 gm Active Medications: Generic Name Dose Route Start Last Admin Trade Name Freq PRN Reason Stop Dose Admin Acetaminophen 650 mg 11/06/18 16:26 Tylenol PO Q4H PRN Pain MILD(1-3)/Fever >100.5/CHAVES Albuterol 2.5 mg 11/06/18 16:26 Proventil IH Q4HRT PRN Shortness Of Breath Amitriptyline HCl 10 mg 11/06/18 22:00 11/09/18 21:25 Elavil PO 10 mg BID TRUDI Administration Apixaban 2.5 mg 11/06/18 22:00 11/09/18 21:23 Eliquis PO 2.5 mg Q12HR TRUDI Administration Protocol Dextrose 50 ml 11/06/18 16:26 D50w (25gm) Syringe IV PRN PRN Hypoglycemia Diphenhydramine HCl 25 mg 11/08/18 14:04 11/10/18 12:24 Benadryl IV 25 mg Q8HR PRN Administration Itching Hydralazine HCl 50 mg 11/06/18 22:00 11/09/18 21:24 Apresoline PO 50 mg BID TRUDI Administration Hydralazine HCl 20 mg 11/06/18 16:29 Apresoline IV Q6HR PRN HTN SYS>170 Hydromorphone HCl 0.5 mg 11/09/18 11:36 11/10/18 08:14 Dilaudid IV 0.5 mg Q6H PRN Administration Pain , Severe (7-10) Sodium Chloride 100 mls @ 999 mls/hr 11/08/18 11:00 Nacl 0.9% IV ELANA PRN Hypotension Sodium Chloride 100 mls @ 999 mls/hr 11/09/18 07:57 Nacl 0.9% IV ELANA PRN Hypotension Labetalol HCl 300 mg 11/06/18 20:00 11/10/18 09:17 Normodyne PO Not Given TID TRUDI Lorazepam 0.5 mg 11/06/18 16:25 Ativan PO Q8HR PRN N/V Unrelieved By zofran Losartan Potassium 50 mg 11/07/18 10:00 11/09/18 10:00 Cozaar PO Not Given QDAY [facility] Ondansetron HCl 4 mg 11/06/18 16:26 11/09/18 00:59 Zofran IV 4 mg Q8H PRN Administration Nausea And Vomiting Ondansetron HCl 4 mg 11/06/18 17:00 11/10/18 05:44 Zofran Odt PO Not Given Q6H [facility] Oxycodone/Acetaminophen 1 tab 11/06/18 16:53 11/08/18 22:03 Percocet 5/325 PO 1 tab Q6H PRN Administration Pain, Moderate (4-6) Pantoprazole Sodium 40 mg 11/07/18 10:00 11/09/18 10:00 Protonix PO Not Given DAILY [facility] Promethazine HCl 25 mg 11/06/18 16:25 Phenergan [place] Q6H PRN Nausea And Vomiting Sodium Chloride 10 ml 11/06/18 22:00 11/09/18 21:25 Sodium Chloride Flush Syringe 10 Ml IV 10 ml BID TRUDI Administration Sodium Chloride 10 ml 11/06/18 16:26 Sodium Chloride Flush Syringe 10 Ml IV PRN PRN LINE FLUSH Sucralfate 1 gm 11/06/18 18:00 11/10/18 05:29 Carafate PO Not Given Q6HR [facility]
--- NOTE | 2018-11-10 13:44 | Progress Note ---
Assessment and Plan - Patient Problems (1) Hemodialysis catheter malfunction Current Visit: Yes Status: Acute Qualifiers: Encounter type: initial encounter Qualified Code(s): T82.41XA - Breakdown (mechanical) of vascular dialysis catheter, initial encounter Plan to address problem: Now has access that is satisfactory and can be discharged home. Need to further evaluate the left arm especially central venous circulation to formulate a plan for salvage of AV access in that extremity. Subjective Date of service: 11/10/18 Principal diagnosis: HTN, CHAVES, ESRD Interval history: Permacath placed yesterday. Function adequate. No swelling or discomfort. Patient did complain of left leg swelling since her catheter was placed in the groin several weeks ago. Recent duplex scan was negative for DVT Objective - Exam Narrative Exam: Catheter function satisfactory. Swelling in the left leg probably related to minor obstruction from permacath but no DVT noted. - Constitutional Vitals: Vital Signs - 12hr 11/10/18 05:23 Temperature 98.4 F Pulse Rate 84 Respiratory 18 Rate Blood Pressure 107/48 O2 Sat by Pulse 97 Oximetry - Labs CBC & Chem 7: 11/10/18 05:51 11/10/18 05:51 Labs: Abnormal lab results 11/10/18 11/10/18 Range/Units 05:51 05:51 RBC 3.32 L (3.65-5.03) M/mm3 MCV 98 H (79-97) fl RDW 19.2 H (13.2-15.2) % [place] % (Auto) 9.6 H (0.0-7.3) % Eos % (Auto) 7.6 H (0.0-4.3) % Potassium 5.2 H (3.6-5.0) mmol/L Carbon Dioxide 20 L (22-30) mmol/L BUN 67 H (7-17) mg/dL Creatinine 8.5 H (0.7-1.2) mg/dL ALT < 5 L (7-56) units/L Albumin 3.3 L (3.9-5) g/dL Medications & Allergies - Medications Allergies/Adverse Reactions: Allergies metformin Allergy (Verified 11/09/18 16:37) Hives metoclopramide HCl [From Reglan] Allergy (Verified 11/09/18 16:37) Hives prochlorperazine [From Compazine] Allergy (Verified 11/09/18 16:37) Hives prochlorperazine edisylate [From Compazine] Allergy (Verified 11/09/18 16:37) Hives prochlorperazine maleate [From Compazine] Allergy (Verified 11/09/18 16:37) Hives haloperidol [From Haldol] Adverse Reaction (Verified 11/09/18 16:37) Unknown PT STATES HER TEETH CHATTERED AND HER "EYES DRIFTED OFF" fish Allergy (Severe, Uncoded 11/09/18 16:35) Swelling to throat Home Medications: Home Medications Medication Instructions Recorded Confirmed Last Taken Type Apixaban [Eliquis] 2.5 mg PO Q12HR #60 tablet 08/04/18 10/22/18 10/21/18 Rx 1 tab Labetalol [Normodyne TAB] 300 mg PO TID #90 tablet 08/04/18 10/22/18 10/22/18 Rx 1 tab Amitriptyline [Elavil] 10 mg PO BID 10/11/18 10/22/18 10/21/18 History 1 tab Ondansetron [Zofran TAB] 4 mg PO Q6H 10/11/18 10/22/18 10/21/18 History 1 tab hydrALAZINE [Apresoline TAB] 50 mg PO BID 10/11/18 10/22/18 10/21/18 History 1 tab Acetaminophen [Acetaminophen TAB] 650 mg PO Q4H PRN #15 tablet 10/17/18 10/22/18 10/21/18 Rx 1 tab LORazepam [Ativan] 0.5 mg PO Q8HR PRN #90 tablet 10/17/18 10/22/18 10/21/18 Rx 1 tab Lispro Insulin [Humalog] 0 unit SUB-Q ACHS units 10/17/18 10/22/18 10/21/18 Rx 0 Losartan [Cozaar] 50 mg PO QDAY #30 tablet 10/17/18 10/22/18 10/21/18 Rx 1 tab Pantoprazole [Protonix TAB] 40 mg PO DAILY #30 tablet 10/17/18 10/22/18 10/21/18 Rx 1 tab Promethazine [Phenergan SUPPOS] 25 mg [place] Q6H PRN #15 supp.rect 10/17/18 10/22/18 10/21/18 Rx 1 supp Sucralfate [Carafate] 1 gm PO Q6HR 30 Days #30 oral.liqd 10/17/18 10/22/1810/21 Rx 1 gm Active Medications: Generic Name Dose Route Start Last Admin Trade Name Freq PRN Reason Stop Dose Admin Acetaminophen 650 mg 11/06/18 16:26 Tylenol PO Q4H PRN Pain MILD(1-3)/Fever >100.5/CHAVES Albuterol 2.5 mg 11/06/18 16:26 Proventil IH Q4HRT PRN Shortness Of Breath Amitriptyline HCl 10 mg 11/06/18 22:00 11/09/18 21:25 Elavil PO 10 mg BID TRUDI Administration Apixaban 2.5 mg 11/06/18 22:00 11/09/18 21:23 Eliquis PO 2.5 mg Q12HR TRUDI Administration Protocol Dextrose 50 ml 11/06/18 16:26 D50w (25gm) Syringe IV PRN PRN Hypoglycemia Diphenhydramine HCl 25 mg 11/08/18 14:04 11/10/18 12:24 Benadryl IV 25 mg Q8HR PRN Administration Itching Hydralazine HCl 50 mg 11/06/18 22:00 11/09/18 21:24 Apresoline PO 50 mg BID TRUDI Administration Hydralazine HCl 20 mg 11/06/18 16:29 Apresoline IV Q6HR PRN HTN SYS>170 Hydromorphone HCl 0.5 mg 11/09/18 11:36 11/10/18 08:14 Dilaudid IV 0.5 mg Q6H PRN Administration Pain , Severe (7-10) Sodium Chloride 100 mls @ 999 mls/hr 11/08/18 11:00 Nacl 0.9% IV ELANA PRN Hypotension Sodium Chloride 100 mls @ 999 mls/hr 11/09/18 07:57 Nacl 0.9% IV LEANA PRN Hypotension Labetalol HCl 300 mg 11/06/18 20:00 11/10/18 09:17 Normodyne PO Not Given TID TRUDI Lorazepam 0.5 mg 11/06/18 16:25 Ativan PO Q8HR PRN N/V Unrelieved By zofran Losartan Potassium 50 mg 11/07/18 10:00 11/09/18 10:00 Cozaar PO Not Given QDAY [facility] Ondansetron HCl 4 mg 11/06/18 16:26 11/09/18 00:59 Zofran IV 4 mg Q8H PRN Administration Nausea And Vomiting Ondansetron HCl 4 mg 11/06/18 17:00 11/10/18 05:44 Zofran Odt PO Not Given Q6H [facility] Oxycodone/Acetaminophen 1 tab 11/06/18 16:53 11/08/18 22:03 Percocet 5/325 PO 1 tab Q6H PRN Administration Pain, Moderate (4-6) Pantoprazole Sodium 40 mg 11/07/18 10:00 11/09/18 10:00 Protonix PO Not Given DAILY [facility] Promethazine HCl 25 mg 11/06/18 16:25 Phenergan [place] Q6H PRN Nausea And Vomiting Sodium Chloride 10 ml 11/06/18 22:00 11/09/18 21:25 Sodium Chloride Flush Syringe 10 Ml IV 10 ml BID TRUDI Administration Sodium Chloride 10 ml 11/06/18 16:26 Sodium Chloride Flush Syringe 10 Ml IV PRN PRN LINE FLUSH Sucralfate 1 gm 11/06/18 18:00 11/10/18 05:29 Carafate PO Not Given Q6HR [facility]
[2018-11-10] MEDS: APRESOLINE PO SCH ×2 (15:22→22:44)
[2018-11-10] MEDS: PROTONIX PO SCH (15:22)
--- NOTE | 2018-11-10 15:26 | Discharge Summary ---
Providers - Providers Date of Admission: 11/06/18 16:26 Attending physician: DYLAN HAMEED MD 11/06/18 15:38 Consult to Physician [CONS] Urgent Comment: OFFICE NOTIFIED 1550 Consulting Provider: ADRIEN MAR Physician Instructions: Reason For Exam: esrd htn 11/06/18 17:52 Consult to Wound/ET Nurse [CONS] Routine Reason For Exam: wound eval 11/08/18 10:20 Consult to Physician [CONS] Urgent Comment: Consulting Provider: CALLY GRIDER Physician Instructions: Reason For Exam: malfunction dialysis catheter [facility] Reason for admission: ESRD Condition: Stable Hospital course: 37 YO Female with ESRD on HD (T,R,Sa), HTN, HLD, CVA with LHP, 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 Pt states that she went to her dialysis center for routine scheduled dialysis today but was unable to undergo dialysis due to uncontrolled hypertension. Pt found to have blood pressure of 232/131. EMS notified and upon arrival the patient was found to have Hypertensive Urgency. Pt transported to [facility]. Pt seen and evaluated in ED and found to have ESRD as well as Hypertensive Urgency. Pt also complains of left leg pain. Pt states that pain is 4/10, persistent, worsened with weight bearing, not relieved with rest. Pt acknowledges noncompliance with antihypertensive medication over the past 4 days. LLE Duplex ordered at time of admission-results pending. Pt admitted to medical floor. Nephrology consulted in ED for dialysis. Pt denies fever, chills, CP, palpitations, Trauma, BRBPR, unintentional weight loss, or night sweats, unilateral leg swelling, calf pain, prolonged travel/immobility, Individual/Family history of DVT/PE/Blood Clotting Disorders. Pt previously admitted on 10/11/18. All listed medication reconciled at time of admission. patient underwent a permcath exchanged and noted to be functioning. will monitor for effective dialysis and hopefully discharge back to SNF in am if K is corrected During hospitalization, patient was noted to have a poor diatery habit, including obtaining food from outside restaurant. Counselling extensively was provided SHE will follow with vascular for Need to further evaluate the left arm especially central venous circulation to formulate a plan for salvage of AV access in that extremity. Patient continually asked for Hydromorphone IV with Beneadry for DVT in her left leg that is no longer there. She also has been non complaint and sometimes inorder to get her IV hydromorphone. - End stage renal disease on dialysis - Malfunctioning graft access - Diabetic foot ulcer-she will continue to follow at the wound care clinic Center -Hypertensive urgency - improved-compliance was discussed in detail -Non Compliance - HLD (hyperlipidemia) - Thrombus IVC Thrombus: chronic: repeat imaging did not redemostrate DVT - Diabetes -CHronic Pain syndrome -Hyperkalemia Disposition: DC/TX-06 HOME UNDER [facility] Time spent for discharge: 35 mins Core Measure Documentation - Palliative Care Palliative Care/ Comfort Measures: Not Applicable - Core Measures Any of the following diagnoses?: none Exam - Physical Exam Narrative exam: General appearance: Present: no distress - EENT Eyes: Present: PERRL ENT: hearing intact, clear oral mucosa - Neck Neck: Present: supple, normal ROM - Respiratory Respiratory effort: normal Respiratory: bilateral: CTA - Cardiovascular Heart Sounds: Present: S1 & S2. Absent: rub, click - Extremities Extremity abnormal: ulceration, other (LLE, Dressing Clean, Dry, Intact), left lower ext edema Peripheral Pulses: within normal limits - Abdominal General gastrointestinal: Present: soft, non-tender, non-distended, normal bowel sounds Female genitourinary: Present: normal - Integumentary Integumentary: Present: clear, warm, dry - Musculoskeletal Musculoskeletal: gait normal, strength equal bilaterally - Psychiatric Psychiatric: appropriate mood/affect, intact judgment & insight - Neurologic Neurologic: CNII-XII intact, moves all extremities - Constitutional Vitals: Temp Pulse Resp BP Pulse Ox 98.4 F 84 18 107/48 97 11/10/18 05:23 11/10/18 05:23 11/10/18 05:23 11/10/18 05:23 11/10/18 05:23 Plan Activity: advance as tolerated, fall precautions Diet: renal Special Instructions: record daily BP diary, record blood sugar diary Follow up with: ANDI MILTON MD [Primary Care Provider] - 3-5 Days ADRIEN MAR MD [Staff Physician] - 7 Days ESTIVEN ALVARENGA MD [Staff Physician] - 7 Days
[2018-11-10] MEDS ORDERED: TRIPLE ANTIBIOTIC TP ONE (19:51)
[2018-11-10] MEDS ORDERED: FLUSH HEPARIN IV ONE (19:51)
[2018-11-10 21:38] VITALS: BP 171/81
== END 2018-11-10 23:00 | disposition home health service (06) | DRG 314 ==
LOC: ED 12:45 → 3A 16:26
PROVIDERS: ADMIT Internal Medicine; ATTEND Internal Medicine
PROC: 06PY33Z Removal of Infusion Device from Lower Vein, Percutaneous Approach (ICD-10-PCS; principal; 2018-11-07)
PROC: 5A1D70Z Performance of Urinary Filtration, Intermittent, Less than 6 Hours Per Day (ICD-10-PCS; 2018-11-07)
PROC: 5A1D70Z Performance of Urinary Filtration, Intermittent, Less than 6 Hours Per Day (ICD-10-PCS; 2018-11-10)
PROC: 06H033Z Insertion of Infusion Device into Inferior Vena Cava, Percutaneous Approach (ICD-10-PCS; 2018-11-10)
PROC: B5191ZA Fluoroscopy of Inferior Vena Cava using Low Osmolar Contrast, Guidance (ICD-10-PCS; 2018-11-10)
DX: T82.41XA Breakdown (mechanical) of vascular dialysis catheter, initial encounter (principal); N18.6 End stage renal disease; I82.221 Chronic embolism and thrombosis of inferior vena cava; I69.354 Hemiplegia and hemiparesis following cerebral infarction affecting left non-dominant side; I12.0 Hypertensive chronic kidney disease with stage 5 chronic kidney disease or end stage renal disease; Y83.8 Other surgical procedures as the cause of abnormal reaction of the patient, or of later complication, without mention of misadventure at the time of the procedure; Y92.098 Other place in other non-institutional residence as the place of occurrence of the external cause; I16.0 Hypertensive urgency; D63.1 Anemia in chronic kidney disease; E10.621 Type 1 diabetes mellitus with foot ulcer; E78.2 Mixed hyperlipidemia; E87.70 Fluid overload, unspecified; L97.529 Non-pressure chronic ulcer of other part of left foot with unspecified severity; E10.43 Type 1 diabetes mellitus with diabetic autonomic (poly)neuropathy; E10.22 Type 1 diabetes mellitus with diabetic chronic kidney disease; G89.4 Chronic pain syndrome; K31.84 Gastroparesis; E87.5 Hyperkalemia; Z99.2 Dependence on renal dialysis; Z79.01 Long term (current) use of anticoagulants; Z79.899 Other long term (current) drug therapy; Z83.3 Family history of diabetes mellitus; Z82.49 Family history of ischemic heart disease and other diseases of the circulatory system; Z90.49 Acquired absence of other specified parts of digestive tract; Z88.8 Allergy status to other drugs, medicaments and biological substances; Z91.013 Allergy to seafood; Z79.4 Long term (current) use of insulin; Z95.828 Presence of other vascular implants and grafts; Z91.19 Patient's noncompliance with other medical treatment and regimen
CPT/HCPCS: 36415; 36581; 70450; 71045; 77001; 80048; 80053; 85025; 85027; 85610; 93005; 93010; 96374; 99291; G0378; A6250; C1750; J0360; J1170; J1200; J1642; J1644; J2250; J2405; J3010; J7030; Q0162

== ENCOUNTER 2018-11-13 14:07 | Inpatient (IN) | payer MEDICARE ==
[2018-11-13] MEDS ORDERED: BENADRYL IV ONE ×2 (14:55→18:25)
[2018-11-13] MEDS ORDERED: MORPHINE IV ONE ×2 (14:55→18:25)
--- NOTE | 2018-11-13 15:09 | Emergency Department Report ---
HPI - General Chief Complaint: High BP Time Seen by Provider: 11/13/18 14:40 - HPI HPI: 37-year-old female presents to the emergency department via EMS from her dialysis center with complaint of very elevated blood pressure. Due to her hypertension, she did not receive any dialysis today. She normally gets dialysis on Monday, and Monday and last had it on Monday, 4 days ago, here at [facility]. At that time she had a replacement of her left groin dialysis fistula. She complains of some left leg pain and swelling since that time. Her hvac project engineer is Dr. Neda Ramos. She says that she was given 0.3 mg of clonidine at the dialysis center. ED Past Medical Hx - Past Medical History Previous Medical History?: Yes Hx Hypertension: Yes Hx CVA: Yes (multiple- L sided deficits, 12 CVA) Hx Heart Attack/AMI: No Hx Congestive Heart Failure: No Hx Diabetes: Yes Hx Deep Vein Thrombosis: No Hx Pulmonary Embolism: No Hx GERD: No Hx Liver Disease: No Hx Renal Disease: Yes Hx Sickle Cell Disease: No Hx Arthritis: No Hx Headaches / Migraines: No Hx Seizures: No Hx Kidney Stones: No Hx Psychiatric Treatment: No Hx Asthma: No Hx COPD: No Hx Tuberculosis: No Hx Dementia: No Hx HIV: No Additional medical history: anemia - Surgical History Past Surgical History?: Yes Hx Coronary Stent: No Hx Open Heart Surgery: No Hx Pacemaker: No Hx Internal Defibrillator: No Hx Cholecystectomy: Yes Hx Appendectomy: No Hx Breast Surgery: No Additional Surgical History: catheter placement for Hemo),bilayeral eye sugery(cataract), av fistula, gastric pacemaker for gastroparesis - Social History Smoking Status: Never Smoker Substance Use Type: None - Medications Home Medications: Home Medications Medication Instructions Recorded Confirmed Last Taken Type Apixaban [Eliquis] 2.5 mg PO Q12HR #60 tablet 08/04/18 11/14/18 11/13/18 Rx Labetalol [Normodyne TAB] 300 mg PO TID #90 tablet 08/04/18 11/14/18 11/13/18 Rx Amitriptyline [Elavil] 10 mg PO BID 10/11/18 11/14/18 11/13/18 History Ondansetron [Zofran TAB] 4 mg PO Q6H 10/11/18 11/14/18 11/13/18 History hydrALAZINE [Apresoline TAB] 50 mg PO BID 10/11/18 11/14/18 11/13/18 History Acetaminophen [Acetaminophen TAB] 650 mg PO Q4H PRN #15 tablet 10/17/18 11/14/18 11/13/18 Rx Lispro Insulin [Humalog] 0 unit SUB-Q ACHS units 10/17/18 11/14/18 11/13/18 Rx Losartan [Cozaar] 50 mg PO QDAY #30 tablet 10/17/18 11/14/18 11/13/18 Rx Pantoprazole [Protonix TAB] 40 mg PO DAILY #30 tablet 10/17/18 11/14/18 11/13/18 Rx Promethazine [Phenergan SUPPOS] 25 mg [place] Q6H PRN #15 supp.rect 10/17/18 11/14/18 11/13/18 Rx LORazepam [Ativan] 0.5 mg PO Q8HR PRN #14 tablet 11/10/18 11/14/18 11/13/18 Rx oxyCODONE /ACETAMINOPHEN [Percocet 1 tab PO Q6H PRN #10 tablet 11/10/18 11/14/18 11/13/18 Rx 5/325 mg] ED Review of Systems ROS: Stated complaint: HYPERTENSION Other details as noted in HPI Comment: All other systems reviewed and negative Constitutional: denies: chills, fever Eyes: denies: eye pain, vision change ENT: denies: ear pain, throat pain Respiratory: denies: cough, wheezing Cardiovascular: edema. denies: chest pain Gastrointestinal: denies: abdominal pain, vomiting Genitourinary: denies: dysuria, discharge Musculoskeletal: myalgia. denies: back pain Skin: denies: rash, lesions Neurological: denies: headache, weakness Physical Exam - Physical Exam Vital Signs: Vital Signs 11/13/18 14:28 Temperature 98.4 F Pulse Rate 96 H Respiratory 18 Rate Blood Pressure 193/107 O2 Sat by Pulse 100 Oximetry Physical Exam: GENERAL: The patient is well-developed well-nourished. HEENT: Normocephalic. Atraumatic. Patient has moist mucous membranes. EYES: Extraocular motions are intact. Pupils are equal and reactive to light bilaterally. NECK: Supple. Trachea is midline. CHEST/LUNGS: Clear to auscultation. There is no respiratory distress noted. HEART/CARDIOVASCULAR: Regular. There is mild tachycardia. There is no obvious murmur. ABDOMEN: Abdomen is soft, nontender. Patient has normal bowel sounds. Morbidly obese habitus. SKIN: The left lower extremity has [id number] nonpitting swelling. NEURO: The patient is awake, alert, and oriented. The patient is cooperative. The patient has normal speech. MUSCULOSKELETAL: There is tenderness to palpation along the left lower extremity. There is no evidence of acute injury. ED Course Vital Signs 11/13/18 14:28 Temperature 98.4 F Pulse Rate 96 H Respiratory 18 Rate Blood Pressure 193/107 O2 Sat by Pulse 100 Oximetry ED Medical Decision Making - Lab Data Result diagrams: 11/14/18 05:51 11/14/18 05:51 - Radiology Data Radiology results: report reviewed PROCEDURE: XR ABD SERIES W CXR 1V TECHNIQUE: Frontal chest x-ray and 2 views of the abdomen were performed HISTORY: abd pain, N/V COMPARISONS: Chest x-ray 11/06/2018 FINDINGS: Right IJ central line is present. Enlarged cardiac silhouette with poorly delineated left cardiac and AP window/suprahilar contour. Pulmonary vascular congestion with fluffy bilateral nodular infiltrates. Upright and supine views of the abdomen demonstrate left femoral deep line, tip at approximately L1. There is a battery pack projecting over the left central abdomen, with leads incompletely assessed. Diffuse fecal retention, fairly opaque abdomen. Upright abdomen does not be the diaphragms and therefore free air cannot be assessed. IMPRESSION: Findings suggest mild positive fluid balance. Catheter of unknown type projects in the abdomen with the tip at the region of the L1 vertebral body. Excess stool with opaque abdomen. Incompletely imaged pump of some sort with a generator pack projecting over the left midabdomen, the leads are incompletely imaged. The upright abdomen does not fully visualize or image the diaphragm and therefore free air cannot be assessed. This document is electronically signed by Lucy Murry MD., November 13 2018 09:38:04 PM ET Transcribed By: BRADLEY Dictated By: LUCY MURRY Electronically Authenticated By: LUCY MURRY Signed Date/Time: 11/13/18 9780 - Medical Decision Making This patient originally came in for hypertensive urgency while at dialysis and did not get her dialysis today. She did come in with extremely elevated blood pressure that came down with some pain control and a dose of hydralazine. The patient also has been dealing with left leg pain since she had her dialysis fistula placed there last weekend. A left lower extremity venous Doppler was done and we are awaiting the results to rule out or rule in a DVT. Originally I spoke with the hvac project engineer sheet metal contractor regarding the patient's labs and we discussed the possibility of sending her home for outpatient treatment. However since that time, the patient has had multiple episodes of nausea and vomiting that have been unresponsive to the antiemetics given. The patient does have a history of diabetic gastroparesis. At this point the patient would benefit more from inpatient admission and resuscitation. A consult will be placed for nephr ology. The patient will be admitted to the overnight hospitalist but Dr. Larkin is aware. - Differential Diagnosis hypertensive crisis, gastroparesis, hypovolemia Critical Care Time: No Critical care attestation.: If time is entered above; I have spent that time in minutes in the direct care of this critically ill patient, excluding procedure time. ED Disposition Clinical Impression: Diabetic gastroparesis, End stage renal disease on dialysis, Hypertensive urgency Intractable nausea and vomiting Qualifiers: Vomiting type: unspecified Qualified Code(s): R11.2 - Nausea with vomiting, unspecified Disposition: OP ADMIT IP TO THIS HOSP Is pt being admited?: Yes Condition: Fair Time of Disposition: 20:09
[2018-11-13 16:02] LABS: Basophils % (Auto) 0.5 % (0.0-1.8); Eosinophils # (Auto) 0.3 K/mm3 (0.0-0.4); Eosinophils % (Auto) 3.8 % (0.0-4.3); Hematocrit 34.6 % (30.3-42.9); Hemoglobin 11.3 gm/dl (10.1-14.3); Lymphocytes # (Auto) 1.3 K/mm3 (1.2-5.4); Lymphocytes % (Auto) 16.4 % (13.4-35.0); Mean Corpuscular HGB Conc 33 % (30-34); Mean Corpuscular Volume 96 fl (79-97); Monocytes # (Auto) 0.7 K/mm3 (0.0-0.8); Monocytes % (Auto) 8.1 % (0.0-7.3); Platelet Count 194 K/mm3 (140-440); Red Blood Count 3.62 M/mm3 (3.65-5.03); Red Cell Distribution Width 18.4 % (13.2-15.2)
[2018-11-13 16:26] LABS: Calcium 8.9 mg/dL (8.4-10.2)
[2018-11-13] MEDS ORDERED: APRESOLINE IV ONE (16:35)
[2018-11-13] MEDS ORDERED: ZOFRAN IV ONE (19:14)
[2018-11-13] MEDS ORDERED: ZOFRAN ONE (19:15)
[2018-11-13] MEDS ORDERED: REGLAN IV ONE (20:03)
[2018-11-13] MEDS ORDERED: REGLAN ONE (20:06)
[2018-11-13 21:04] LABS: Albumin 3.8 g/dL (3.9-5)
[2018-11-13 21:07] LABS: Alanine Aminotransferase < 5 units/L (7-56); Bilirubin,Direct < 0.2 mg/dL (0-0.2)
--- NOTE | 2018-11-13 21:40 | XRay Report ---
PROCEDURE: XR ABD SERIES W CXR 1V TECHNIQUE: Frontal chest x-ray and 2 views of the abdomen were performed HISTORY: abd pain, N/V COMPARISONS: Chest x-ray 11/06/2018 FINDINGS: Right IJ central line is present. Enlarged cardiac silhouette with poorly delineated left cardiac and AP window/suprahilar contour. Pul monary vascular congestion with fluffy bilateral nodular infiltrates. Upright and supine views of the abdomen demonstrate left femoral deep line, tip at approximately L1. There is a battery pack projecting over the left central abdomen, with leads incompletely assessed. Diffuse fecal retention, fairly opaque abdomen. Upright abdomen does not be the diaphragms and theref ore free air cannot be assessed. IMPRESSION: Findings suggest mild positive fluid balance. Catheter of unknown type projects in the abdomen with the tip at the region of the L1 vertebral body. Excess stool with opaque abdomen. Incompletely imaged pump of some sort with a generator pack projecting over the left midabdomen, the leads are incompletely imaged. The upright abdomen does not fully visualize or image the diaphragm and therefore free air cannot be assessed. This document is electronically signed by Cecily Murphy MD., November 13 2018 09:38:04 PM ET
[2018-11-13] MEDS ORDERED: APRESOLINE IV PRN (21:46)
[2018-11-13] MEDS ORDERED: D50W (25GM) Syringe IV PRN (21:46)
--- NOTE | 2018-11-13 21:47 | History and Physical Report ---
History of Present Illness Date of examination: 11/13/18 History of present illness: 37-year-old woman with a history with hypertension, diabetes complicated by gastroparesis, status post gastric pacemaker, end-stage renal disease on dialysis, CVA, hyperlipidemia, chronic pain comes to the emergency room with complaints of unable to get her dialysis done today because her blood pressure was so high despite given 0.3 mg of clonidine . Blood pressure responded to antihypertensive in the emergency room, complain of nausea vomiting that started today Review of systems Constitutional: no weight loss, chills, fever Ears, eyes, nose, mouth and throat: no nasal congestion, no nasal discharge, no sinus pressure, no vision change, no red eye. Neck: No neck pain or rigidity. Cardiovascular: no palpitations, chest pain Respiratory: no cough, shortness of breath Gastrointestinal: no hematochezia, abdominal pain Genitourinary : no frequency , no hematuria Musculoskeletal: no joint swelling or muscle ache Integumentary: no rash, no pruritis Neurological: no parathesias, no focal weakness Endocrine: no cold or heat intolerance, no polyuria or polydipsia Hematologic/Lymphatic: no easy bruising, no easy bleeding, no gland swelling Allergic/Immunologic: no urticaria, no angioedema. PAST MEDICAL HISTORY:hypertension, diabetes complicated by gastroparesis, status post gastric pacemaker, end-stage renal disease, hyperlipidemia, chronic pain, diabetic foot ulcer PAST SURGICAL HISTORY: Cholecystectomy, gastric pacemaker, AV fistula SOCIAL HISTORY: Denies alcohol, drugs, tobacco FAMILY HISTORY: Hypertension Medications and Allergies Allergies Allergy/AdvReac Type Severity Reaction Status Date / Time metformin Allergy Hives Verified 11/09/18 16:37 metoclopramide HCl Allergy Hives Verified 11/09/18 16:37 [From Reglan] prochlorperazine Allergy Hives Verified 11/09/18 16:37 [From Compazine] prochlorperazine edisylate Allergy Hives Verified 11/09/18 16:37 [From Compazine] prochlorperazine maleate Allergy Hives Verified 11/09/18 16:37 [From Compazine] haloperidol [From Haldol] AdvReac Unknown Verified 11/09/18 16:37 fish Allergy Severe Swelling Uncoded 11/09/18 16:35 to throat Home Medications Medication Instructions Recorded Confirmed Last Taken Type Apixaban [Eliquis] 2.5 mg PO Q12HR #60 tablet 08/04/18 10/22/18 10/21/18 Rx 1 tab Labetalol [Normodyne TAB] 300 mg PO TID #90 tablet 08/04/18 10/22/18 10/22/18 Rx 1 tab Amitriptyline [Elavil] 10 mg PO BID 10/11/18 10/22/18 10/21/18 History 1 tab Ondansetron [Zofran TAB] 4 mg PO Q6H 10/11/18 10/22/18 10/21/18 History 1 tab hydrALAZINE [Apresoline TAB] 50 mg PO BID 10/11/18 10/22/18 10/21/18 History 1 tab Acetaminophen [Acetaminophen TAB] 650 mg PO Q4H PRN #15 tablet 10/17/18 10/22/18 10/21/18 Rx 1 tab Lispro Insulin [Humalog] 0 unit SUB-Q ACHS units 10/17/18 10/22/18 10/21/18 Rx 0 Losartan [Cozaar] 50 mg PO QDAY #30 tablet 10/17/18 10/22/18 10/21/18 Rx 1 tab Pantoprazole [Protonix TAB] 40 mg PO DAILY #30 tablet 10/17/18 10/22/18 10/21/18 Rx 1 tab Promethazine [Phenergan SUPPOS] 25 mg [place] Q6H PRN #15 supp.rect 10/17/18 10/22/18 10/21/18 Rx 1 supp LORazepam [Ativan] 0.5 mg PO Q8HR PRN #14 tablet 11/10/18 Unknown Rx oxyCODONE /ACETAMINOPHEN [Percocet 1 tab PO Q6H PRN #10 tablet 11/10/18 Unknown Rx 5/325 mg] Exam - Physical Exam Narrative exam: General Apperance: The patient lying in bed, breathing comfortable HEENT: Normocephalic, atraumatic. Pupils equally round and reactive to light, EOMI, no sclericterus or JVD or thyromegaly or nodule. , no carotid bruit, mucous membranes moist, no exudate or erythema Heart: S1-S2, regular is rhythm Lungs: Clear to auscultation bilaterally, breathing comfortable Abdomen: Positive bowel sounds, soft, nontender, nondistended, no organomegaly Extremities: No edema cyanosis clubbing Skin: Left foot ulcer, no rash, nodule, warm and dry Neuro: cranial nerves 2-12 intact, speech is fluent, left hemiparesis - Constitutional Vitals: Temp Pulse Resp BP Pulse Ox 98.4 F 104 H 18 167/89 98 11/13/18 14:28 11/13/18 19:00 11/13/18 19:00 11/13/18 19:00 11/13/18 19:00 Results - Labs CBC & Chem 7: 11/13/18 15:48 11/13/18 15:29 Labs: Abnormal lab results 11/13/18 11/13/18 11/13/18 Range/Units 15:29 15:48 20:06 RBC 3.62 L (3.65-5.03) M/mm3 RDW 18.4 H (13.2-15.2) % [place] % (Auto) 8.1 H (0.0-7.3) % Seg Neutrophils % 71.2 H (40.0-70.0) % Potassium 5.3 H (3.6-5.0) mmol/L Carbon Dioxide 21 L (22-30) mmol/L BUN 73 H (7-17) mg/dL Creatinine 7.7 H (0.7-1.2) mg/dL ALT < 5 L (7-56) units/L Albumin 3.8 L (3.9-5) g/dL - Imaging and Cardiology Chest x-ray: report reviewed Abdominal x-ray: report reviewed Venous US: pending Assessment and Plan Assessment Hypertensive urgency Intractable nausea and vomiting was likely secondary to gastroparesis end-stage renal disease, need dialysis diabetes complicated by gastroparesis History of CVA hyperlipidemia chronic pain diabetic foot ulcer Plan Start IV hydralazine as needed for blood pressure control start anti-emetics, Consult renal for dialysis Check fingersticks initiate insulin sliding scale DVT prophylaxis, consult wound care Follow med reconciliation
[2018-11-14] MEDS ORDERED: D50W (25GM) Syringe IV PRN (01:36)
[2018-11-14] MEDS ORDERED: TYLENOL PO PRN ×2 (01:36→11:27)
[2018-11-14] MEDS ORDERED: SODIUM CHLORIDE FLUSH SYRINGE 10 ML IV PRN (01:36)
[2018-11-14] MEDS ORDERED: ZOFRAN IV PRN (01:36)
[2018-11-14] MEDS: HumaLOG SUB-Q SCH ×3 (03:50→12:18)
[2018-11-14] MEDS: APRESOLINE IV PRN (06:28)
[2018-11-14 06:38] LABS: Basophils % (Auto) 0.8 % (0.0-1.8); Eosinophils # (Auto) 0.1 K/mm3 (0.0-0.4); Eosinophils % (Auto) 2.7 % (0.0-4.3); Hematocrit 37.2 % (30.3-42.9); Hemoglobin 11.8 gm/dl (10.1-14.3); Lymphocytes # (Auto) 0.8 K/mm3 (1.2-5.4); Lymphocytes % (Auto) 15.5 % (13.4-35.0); Mean Corpuscular HGB Conc 32 % (30-34); Mean Corpuscular Volume 97 fl (79-97); Monocytes # (Auto) 0.4 K/mm3 (0.0-0.8); Monocytes % (Auto) 7.5 % (0.0-7.3); Platelet Count 164 K/mm3 (140-440); Red Blood Count 3.81 M/mm3 (3.65-5.03); Red Cell Distribution Width 18.5 % (13.2-15.2)
[2018-11-14 06:53] LABS: Calcium 8.8 mg/dL (8.4-10.2)
[2018-11-14] MEDS: HumuLIN R SUB-Q SCH ×4 (09:06→23:33)
[2018-11-14] MEDS: ELIQUIS PO SCH ×2 (09:37→21:44)
[2018-11-14] MEDS: SODIUM CHLORIDE FLUSH SYRINGE 10 ML IV SCH ×2 (09:38→21:44)
[2018-11-14] MEDS ORDERED: LOVENOX SUB-Q SCH (10:00)
[2018-11-14] MEDS ORDERED: PHENERGAN PR PRN (11:27)
[2018-11-14] MEDS ORDERED: NON-FORMULARY (Ondansetron [Zofran Tab] 4 MG) PO SCH (11:30)
--- NOTE | 2018-11-14 11:30 | Progress Note ---
Assessment and Plan Assessment and plan: 37f with pmh of htn, dm, gastroparesis, sp gastric PM, left foot Dm ulcer esrd, CVA, HLD, chronic pain, who pw needing HD and high BP, also c.o N/V, Diagnosis htn urgency Acute flare of gastroparesis esrd DM hld diabetic R foot ulcer Pain medication seeking behavior Plan -optimize BP meds -HD per nephrology -optimize insulins -wound care for right foot ulcer -fup venous duplex scan -Patient was counseled greater than 60 minutes on lifestyle modification and cessation of prescription drug use given pain medication seeking behavior -dvt ppx- lovenox History Interval history: Review of systems Constitutional: No fevers, no malaise, no joint pains CVS: No chest pain, no orthopnea, no dyspnea on exertion, no pedal edema GI: No abdominal pain, no diarrhea, no vomiting, no constipation Respiratory: No shortness of breath, no wheezing, no coughing Hospitalist Physical - Physical exam Narrative exam: General.: Appears well, no distress, nontoxic HEENT: Moist mucous membranes, extraocular muscles intact, no lymphadenopathy Neck: supple Cardiac: S1-S2 heard Lungs: clear to auscultation bilaterally Abdomen: soft , nontender, nondistended, bowel sounds positive Extremities: no edema clubbing or cyanosis Skin: no rash or lesions Neurologic: no gross focal deficits Psych: calm, and cooperative - Constitutional Vitals: Temp Pulse Resp BP Pulse Ox 98.2 F 95 H 19 142/83 99 11/14/18 10:35 11/14/18 10:35 11/14/18 10:35 11/14/18 10:35 11/14/18 10:35 Results - Labs CBC & Chem 7: 11/14/18 05:51 11/14/18 05:51 Labs: Laboratory Last Values WBC 5.2 K/mm3 (4.5-11.0) 11/14/18 05:51 RBC 3.81 M/mm3 (3.65-5.03) 11/14/18 05:51 Hgb 11.8 gm/dl (10.1-14.3) 11/14/18 05:51 Hct 37.2 % (30.3-42.9) 11/14/18 05:51 MCV 97 fl (79-97) 11/14/18 05:51 MCH 31 pg (28-32) 11/14/18 05:51 MCHC 32 % (30-34) 11/14/18 05:51 RDW 18.5 % (13.2-15.2) H 11/14/18 05:51 Plt Count 164 K/mm3 (140-440) 11/14/18 05:51 Lymph % (Auto) 15.5 % (13.4-35.0) 11/14/18 05:51 [place] % (Auto) 7.5 % (0.0-7.3) H 11/14/18 05:51 Eos % (Auto) 2.7 % (0.0-4.3) 11/14/18 05:51 Baso % (Auto) 0.8 % (0.0-1.8) 11/14/18 05:51 Lymph # 0.8 K/mm3 (1.2-5.4) L 11/14/18 05:51 [place] # 0.4 K/mm3 (0.0-0.8) 11/14/18 05:51 Eos # 0.1 K/mm3 (0.0-0.4) 11/14/18 05:51 Baso # 0.0 K/mm3 (0.0-0.1) 11/14/18 05:51 Seg Neutrophils % 73.5 % (40.0-70.0) H 11/14/18 05:51 Seg Neutrophils # 3.8 K/mm3 (1.8-7.7) 11/14/18 05:51 Sodium 136 mmol/L (137-145) L 11/14/18 05:51 Potassium 5.5 mmol/L (3.6-5.0) H 11/14/18 05:51 Chloride 101.6 mmol/L (98-107) 11/14/18 05:51 Carbon Dioxide 16 mmol/L (22-30) L 11/14/18 05:51 Anion Gap 24 mmol/L 11/14/18 05:51 BUN 75 mg/dL (7-17) H 11/14/18 05:51 Creatinine 8.0 mg/dL (0.7-1.2) H 11/14/18 05:51 Estimated GFR 7 ml/min 11/14/18 05:51 BUN/Creatinine Ratio 9 % 11/14/18 05:51 Glucose 70 mg/dL (65-100) 11/14/18 05:51 POC Glucose 104 (70-105) 11/14/18 11:09 Calcium 8.8 mg/dL (8.4-10.2) 11/14/18 05:51 Total Bilirubin 0.30 mg/dL (0.1-1.2) 11/13/18 20:06 Direct Bilirubin < 0.2 mg/dL (0-0.2) 11/13/18 20:06 Indirect Bilirubin 0.1 mg/dL 11/13/18 20:06 AST 9 units/L (5-40) 11/13/18 20:06 ALT < 5 units/L (7-56) L 11/13/18 20:06 Alkaline Phosphatase 77 units/L (35-129) 11/13/18 20:06 Total Protein 7.6 g/dL (6.3-8.2) 11/13/18 20:06 Albumin 3.8 g/dL (3.9-5) L 11/13/18 20:06 Albumin/Globulin Ratio 1.0 % 11/13/18 20:06 Lipase 13 units/L (13-60) 11/13/18 20:06 Active Medications - Current Medications Current Medications: Generic Name Dose Route Start Last Admin Trade Name Freq PRN Reason Stop Dose Admin Acetaminophen 650 mg 11/14/18 01:36 Tylenol PO Q4H PRN Pain MILD(1-3)/Fever >100.5/CHAVES Acetaminophen 650 mg 11/14/18 11:27 Tylenol PO Q4H PRN Pain MILD(1-3)/Fever >100.5/CHAVES Amitriptyline HCl 10 mg 11/14/18 22:00 Elavil PO BID TRUDI Apixaban 2.5 mg 11/14/18 10:00 11/14/18 09:37 Eliquis PO 2.5 mg Q12HR TRUDI Administration Protocol Dextrose 50 ml 11/13/18 21:46 D50w (25gm) Syringe IV PRN PRN Hypoglycemia Dextrose 50 ml 11/14/18 01:36 D50w (25gm) Syringe IV PRN PRN Hypoglycemia Hydralazine HCl 10 mg 11/14/18 01:42 11/14/18 06:28 Apresoline IV 10 mg Q6H PRN Administration Hypertension Hydralazine HCl 50 mg 11/14/18 22:00 Apresoline PO BID [facility] Insulin Human Lispro 0 unit 11/14/18 00:00 11/14/18 07:39 Humalog SUB-Q Not Given Q6HR [facility] Protocol Insulin Human Regular 0 units 11/14/18 07:30 11/14/18 09:06 Humulin R SUB-Q Not Given ACHS [facility] Protocol Ondansetron HCl 4 mg 11/14/18 01:36 Zofran IV Q8H PRN Nausea And Vomiting Sodium Chloride 10 ml 11/14/18 10:00 11/14/18 09:38 Sodium Chloride Flush Syringe 10 Ml IV 10 ml BID TRUDI Administration Sodium Chloride 10 ml 11/14/18 01:36 Sodium Chloride Flush Syringe 10 Ml IV PRN PRN LINE FLUSH
--- NOTE | 2018-11-14 11:47 | Consultation ---
History of Present Illness - Reason for Consult Consult date: 11/14/18 - History of Present Illness This is a 37 year old female who presented to the E.R yesterday as she states her dialysis clinic would not dialyze her due to having Hypertension with SBP in the 200's. Patient goes to [facility] and is under the care of Dr. Ramos. Patient is noted to be Hyperkalemic and is due for hemodialysis. She has a left femoral perm-catheter which she states was exchanged out last week by [facility] team. States her left AVG has failed. Patient also has history of Hypertension, Diabetes Mellitus, CVA and wound to Left lower extremity. We are being consulted for management of this patient's ESRD. Past History Past Medical History: diabetes, dialysis, hypertension, hyperlipidemia, PVD, renal failure Past Surgical History: Other (Left thigh femoral perm-catheter. Multiple AVG surgeries) Social history: no significant social history Family history: no significant family history Medications and Allergies Allergies Allergy/AdvReac Type Severity Reaction Status Date / Time metformin Allergy Hives Verified 11/09/18 16:37 metoclopramide HCl Allergy Hives Verified 11/09/18 16:37 [From Reglan] prochlorperazine Allergy Hives Verified 11/09/18 16:37 [From Compazine] prochlorperazine edisylate Allergy Hives Verified 11/09/18 16:37 [From Compazine] prochlorperazine maleate Allergy Hives Verified 11/09/18 16:37 [From Compazine] haloperidol [From Haldol] AdvReac Unknown Verified 11/09/18 16:37 fish Allergy Severe Swelling Uncoded 11/09/18 16:35 to throat Home Medications Medication Instructions Recorded Confirmed Last Taken Type Apixaban [Eliquis] 2.5 mg PO Q12HR #60 tablet 08/04/18 11/14/18 11/13/18 Rx Labetalol [Normodyne TAB] 300 mg PO TID #90 tablet 08/04/18 11/14/18 11/13/18 Rx Amitriptyline [Elavil] 10 mg PO BID 10/11/18 11/14/18 11/13/18 History Ondansetron [Zofran TAB] 4 mg PO Q6H 10/11/18 11/14/18 11/13/18 History hydrALAZINE [Apresoline TAB] 50 mg PO BID 10/11/18 11/14/18 11/13/18 History Acetaminophen [Acetaminophen TAB] 650 mg PO Q4H PRN #15 tablet 10/17/18 11/14/18 11/13/18 Rx Lispro Insulin [Humalog] 0 unit SUB-Q ACHS units 10/17/18 11/14/18 11/13/18 Rx Losartan [Cozaar] 50 mg PO QDAY #30 tablet 10/17/18 11/14/18 11/13/18 Rx Pantoprazole [Protonix TAB] 40 mg PO DAILY #30 tablet 10/17/18 11/14/18 11/13/18 Rx Promethazine [Phenergan SUPPOS] 25 mg NE Q6H PRN #15 supp.rect 10/17/18 11/14/18 11/13/18 Rx LORazepam [Ativan] 0.5 mg PO Q8HR PRN #14 tablet 11/10/18 11/14/18 11/13/18 Rx oxyCODONE /ACETAMINOPHEN [Percocet 1 tab PO Q6H PRN #10 tablet 11/10/18 11/14/18 11/13/18 Rx 5/325 mg] Active Meds: Active Medications Acetaminophen (Tylenol) 650 mg PO Q4H PRN PRN Reason: Pain MILD(1-3)/Fever >100.5/CHAVES Acetaminophen (Tylenol) 650 mg PO Q4H PRN PRN Reason: Pain MILD(1-3)/Fever >100.5/CHAVES Amitriptyline HCl (Elavil) 10 mg PO BID TRUDI Apixaban (Eliquis) 2.5 mg PO Q12HR [facility]; Protocol Last Admin: 11/14/18 09:37 Dose: 2.5 mg Documented by: Dextrose (D50w (25gm) Syringe) 50 ml IV PRN PRN PRN Reason: Hypoglycemia Dextrose (D50w (25gm) Syringe) 50 ml IV PRN PRN PRN Reason: Hypoglycemia Hydralazine HCl (Apresoline) 10 mg IV Q6H PRN PRN Reason: Hypertension Last Admin: 11/14/18 06:28 Dose: 10 mg Documented by: Hydralazine HCl (Apresoline) 50 mg PO BID [facility] Insulin Human Lispro (Humalog) 0 unit SUB-Q Q6HR [facility]; Protocol Last Admin: 11/14/18 07:39 Dose: Not Given Documented by: Insulin Human Regular (Humulin R) 0 units SUB-Q ACHS [facility]; Protocol Last Admin: 11/14/18 09:06 Dose: Not Given Documented by: Labetalol HCl (Normodyne) 300 mg PO TID [facility] Losartan Potassium (Cozaar) 50 mg PO QDAY [facility] Miscellaneous Medication (Ondansetron [Zofran Tab]) 4 mg PO Q6H [facility] Ondansetron HCl (Zofran) 4 mg IV Q8H PRN PRN Reason: Nausea And Vomiting Oxycodone/Acetaminophen (Percocet 5/325) 1 tab PO Q6H PRN PRN Reason: Pain, Moderate (4-6) Pantoprazole Sodium (Protonix) 40 mg PO DAILY [facility] Promethazine HCl (Phenergan) 25 mg NE Q6H PRN PRN Reason: Nausea And Vomiting Sodium Chloride (Sodium Chloride Flush Syringe 10 Ml) 10 ml IV BID [facility] Last Admin: 11/14/18 09:38 Dose: 10 ml Documented by: Sodium Chloride (Sodium Chloride Flush Syringe 10 Ml) 10 ml IV PRN PRN PRN Reason: LINE FLUSH Review of Systems Constitutional: fatigue, no weight loss, no weight gain, no fever, no chills, no sweats Ears, nose, mouth and throat: no ear pain, no ear discharge, no tinnitis, no decreased hearing, no nose pain, no nasal congestion, no nasal discharge Cardiovascular: edema, no chest pain, no orthopnea, no palpitations, no rapid/irregular heart beat, no syncope Respiratory: no cough, no cough with sputum, no excessive sputum, no hemoptysis, no shortness of breath, no dyspnea on exertion Gastrointestinal: no abdominal pain, no nausea, no vomiting, no diarrhea, no co nstipation, no change in bowel habits Rectal: no pain, no incontinence, no bleeding Musculoskeletal: no neck stiffness, no neck pain, no shooting arm pain, no arm numbness/tingling, no low back pain, no shooting leg pain Integumentary: foot/leg ulcers, no rash, no pruritis, no redness, no sores, no wounds, no jaundice Neurological: no transient paralysis, no paralysis, no parathesias, no numbness, no tingling, no seizures Psychiatric: no memory loss, no change in sleep habits, no sleep disturbances, no change in appetite Endocrine: no cold intolerance, no heat intolerance, no polyphagia, no excessive thirst, no polydipsia Hematologic/Lymphatic: no easy bruising, no easy bleeding Exam - Vital Signs Vital signs: Vital Signs Temp Pulse Resp BP Pulse Ox 98.4 F 96 H 18 193/107 100 11/13/18 14:28 11/13/18 14:28 11/13/18 14:28 11/13/18 14:28 11/13/18 14:28 - General Appearance General appearance: well-developed, fatigue EENT: ATNC, PERRL, hearing intact, vision intact Neck: Present: neck supple, trachea midline Respiratory: Decreased Breath Sounds Heart: regular, S1S2 Gastrointestinal: Present: normoactive bowel sounds Integumentary: warm and dry, other (Has wound to left leg with gauze dressing) Neurologic: alert and oriented x3 Musculoskeletal: Present: joint swelling, other (Has left groin femoral cath) Results - Lab Results 11/14/18 05:51 11/14/18 05:51 Most recent lab results Calcium 8.8 mg/dL (8.4-10.2) 11/14/18 05:51 Assessment and Plan End Stage Renal Disease: -Hemodialysis today for UF and clearance -Has left groin femoral catheter -Fluid restriction of 1 liter per day -Renal diet -Obtain daily weights -Monitor I/O's -Assess dialysis needs daily Hypertension: -On Hydralazine/Labetalol/Losartan -Adjust regimen as needed Diabetes Mellitus: -On insulin as per primary Diabetic left foot ulcer: -Wound care consult
[2018-11-14] MEDS ORDERED: ALBURX 25% (ALBUMIN) IV PRN (11:53)
[2018-11-14] MEDS ORDERED: NACL 0.9% 100 ML IV PRN (11:53)
--- NOTE | 2018-11-14 13:31 | Discharge Summary ---
Providers - Providers Date of Admission: 11/13/18 21:44 Attending physician: CHENTE CASTANO MD 11/13/18 20:08 Consult to Physician [CONS] Routine Comment: Consulting Provider: ESTHER CHOUDHARY Physician Instructions: Reason For Exam: dialysis 11/14/18 11:00 Consult to Wound/ET Nurse [CONS] Routine Reason For Exam: wound eval Primary care physician: [employer] Hospitalization Condition: Fair Hospital course: 37 YO Female with ESRD on HD (T,R,Sa), HTN, HLD, CVA with LHP, 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 Pt states that she went to her dialysis center for routine scheduled dialysis today but was unable to undergo dialysis due to uncontrolled hypertension. She had just been discharged from hospital. She stated that she had problems obtaining her blood pressure medications. She was admitted to the hospital she received blood pressure medications, she received dialysis. She also received antiemetics for complaints of nausea or vomiting, nausea vomiting improved. She displayed pain medication seeking behavior, she was counseled on cessation of controlled substances on minimizing the use as much as possible. Diagnosis Hypertensive urgency End-stage renal disease Diabetic gastroparesis Hyperkalemia Type 2 diabetes Diabetic foot ulcer Adherence Hyperlipidemia Chronic IVC thrombus on anticoagulation Chronic pain syndrome Pain medication seeking behavior Disposition: [id number] HOME [facility]ER [facility] Time spent for discharge: 33 mins Core Measure Documentation - Palliative Care Palliative Care/ Comfort Measures: Not Applicable - Core Measures Any of the following diagnoses?: none Exam - Constitutional Vitals: Temp Pulse Resp BP Pulse Ox 98.2 F 95 H 19 142/83 99 11/14/18 10:35 11/14/18 10:35 11/14/18 10:35 11/14/18 10:35 11/14/18 10:35 General appearance: Present: no acute distress, well-nourished - EENT Eyes: Present: PERRL ENT: hearing intact, clear oral mucosa - Neck Neck: Present: supple, normal ROM - Respiratory Respiratory effort: normal Respiratory: bilateral: CTA - Cardiovascular Heart Sounds: Present: S1 & S2. Absent: rub, click - Extremities Extremities: pulses symmetrical, No edema Peripheral Pulses: within normal limits - Abdominal General gastrointestinal: Present: soft, non-tender, non-distended, normal bowel sounds Female genitourinary: Present: normal - Integumentary Integumentary: Present: clear, warm, dry (diabetic foot ulcer) - Musculoskeletal Musculoskeletal: gait normal, strength equal bilaterally - Psychiatric Psychiatric: appropriate mood/affect, intact judgment & insight - Neurologic Neurologic: CNII-XII intact, moves all extremities Plan Follow up with: PRIMARY CARE,MD [Primary Care Provider] - 3-5 Days Prescriptions: hydrALAZINE [Apresoline TAB] 50 mg PO BID 30 Days tablet oxyCODONE /ACETAMINOPHEN [Percocet 5/325 mg] 1 tab PO Q6H PRN #20 tablet PRN Reason: Pain, Moderate (4-6) Ondansetron [Zofran Odt] 4 mg PO Q8HR PRN #30 tab.rapdis PRN Reason: Nausea
--- NOTE | 2018-11-14 16:40 | Vascular Lab Report ---
PROCEDURE: VL VENOUS DUPLEX LE LT TECHNIQUE: Real-time color duplex sonography was performed of the deep venous systems of the bilater al lower extremities and images are submitted for interpretation. HISTORY: LLE pain and swelling COMPARISONS: 11/07/2018 FINDINGS: Right: There is normal compressibility of the common and superficial femoral veins and the popliteal vein. Normal venous waveforms are demonstrated throughout. No echogenic thrombus is demonstrated. Left: There is normal compressibility of the common and superficial femoral veins and the popliteal v ein. Normal venous waveforms are demonstrated throughout. No echogenic thrombus is demonstrated. IMPRESSION: No evidence of deep venous thrombosis This document is electronically signed by Juju Lopez MD., November 13 2018 07:33:48 PM ET
[2018-11-14] MEDS: PERCOCET 5/325 PO PRN (17:54)
[2018-11-14] MEDS: COZAAR PO SCH (17:55)
[2018-11-14] MEDS: PROTONIX PO SCH (17:56)
[2018-11-14] MEDS: ZOFRAN ODT PO SCH (17:56)
[2018-11-14] MEDS: NORMODYNE PO SCH (17:56)
[2018-11-14] MEDS: ELAVIL PO SCH ×2 (17:56→21:43)
[2018-11-14] MEDS: APRESOLINE PO SCH (17:58)
[2018-11-14] MEDS ORDERED: FLUSH HEPARIN IV ONE (18:00)
[2018-11-14] MEDS ORDERED: NACL 0.9 (PRIMING MACHINE ONLY DIALYSIS) MC ONE (18:46)
[2018-11-15] MEDS: APRESOLINE PO SCH ×3 (01:08→21:10)
[2018-11-15] MEDS: NORMODYNE PO SCH ×4 (01:08→21:10)
[2018-11-15] MEDS: ZOFRAN ODT PO SCH ×4 (01:40→17:39)
[2018-11-15 06:32] LABS: Albumin 3.6 g/dL (3.9-5); BUN/Creatinine Ratio 8; Blood Urea Nitrogen 40 mg/dL (7-17); Hemolysis Index 5
[2018-11-15 06:40] LABS: Alanine Aminotransferase < 5 units/L (7-56)
[2018-11-15 06:41] LABS: Basophils % (Auto) 0.8 % (0.0-1.8); Eosinophils # (Auto) 0.2 K/mm3 (0.0-0.4); Eosinophils % (Auto) 4.4 % (0.0-4.3); Hematocrit 33.7 % (30.3-42.9); Hemoglobin 10.9 gm/dl (10.1-14.3); Lymphocytes # (Auto) 1.1 K/mm3 (1.2-5.4); Lymphocytes % (Auto) 25.2 % (13.4-35.0); Mean Corpuscular HGB Conc 32 % (30-34); Mean Corpuscular Volume 95 fl (79-97); Monocytes # (Auto) 0.5 K/mm3 (0.0-0.8); Platelet Count 184 K/mm3 (140-440); Red Blood Count 3.54 M/mm3 (3.65-5.03); Red Cell Distribution Width 18.2 % (13.2-15.2)
[2018-11-15] MEDS: HumuLIN R SUB-Q SCH ×4 (08:05→23:17)
[2018-11-15] MEDS: COZAAR PO SCH (09:50)
[2018-11-15] MEDS: PROTONIX PO SCH (09:51)
[2018-11-15] MEDS: ELAVIL PO SCH ×2 (09:51→21:10)
[2018-11-15] MEDS: SODIUM CHLORIDE FLUSH SYRINGE 10 ML IV SCH ×2 (09:51→21:11)
[2018-11-15] MEDS: ELIQUIS PO SCH ×2 (09:51→21:09)
--- NOTE | 2018-11-15 10:33 | Progress Note ---
Assessment and Plan Assessment and plan: 37f with pmh of htn, dm, gastroparesis, sp gastric PM, left foot Dm ulcer esrd, CVA, HLD, chronic pain, who pw needing HD and high BP, also c.o N/V, Diagnosis htn urgency Acute flare of gastroparesis esrd DM hld diabetic R foot ulcer Pain medication seeking behavior Nonadherence to medications Plan -optimize BP meds -HD per nephrology -optimize insulins -wound care for right foot ulcer -fup venous duplex scan -Patient was counseled greater than 16 minutes on lifestyle modification and cessation of prescription drug use given pain medication seeking behavior -dvt ppx- lovenox The patient was discharged yesterday, but she appealed her discharge and Medicare. Awaiting Medicare decision History Interval history: Review of systems Constitutional: No fevers, no malaise, no joint pains CVS: No chest pain, no orthopnea, no dyspnea on exertion, no pedal edema GI: No abdominal pain, no diarrhea, no vomiting, no constipation Respiratory: No shortness of breath, no wheezing, no coughing Hospitalist Physical - Physical exam Narrative exam: General.: Appears well, no distress, nontoxic HEENT: Moist mucous membranes, extraocular muscles intact, no lymphadenopathy Neck: supple Cardiac: S1-S2 heard Lungs: clear to auscultation bilaterally Abdomen: soft , nontender, nondistended, bowel sounds positive Extremities: chronic R LE edema Skin: no rash or lesions Neurologic: no gross focal deficits Psych: calm, and cooperative - Constitutional Vitals: Temp Pulse Resp BP Pulse Ox 98.6 F 82 18 163/77 100 11/15/18 00:18 11/15/18 09:50 11/15/18 00:18 11/15/18 09:50 11/15/18 06:45 General appearance: Present: no acute distress, well-nourished Results - Labs CBC & Chem 7: 11/15/18 05:36 11/15/18 05:36 Labs: Laboratory Last Values WBC 4.3 K/mm3 (4.5-11.0) L 11/15/18 05:36 RBC 3.54 M/mm3 (3.65-5.03) L 11/15/18 05:36 Hgb 10.9 gm/dl (10.1-14.3) 11/15/18 05:36 Hct 33.7 % (30.3-42.9) 11/15/18 05:36 MCV 95 fl (79-97) 11/15/18 05:36 MCH 31 pg (28-32) 11/15/18 05:36 MCHC 32 % (30-34) 11/15/18 05:36 RDW 18.2 % (13.2-15.2) H 11/15/18 05:36 Plt Count 184 K/mm3 (140-440) 11/15/18 05:36 Lymph % (Auto) 25.2 % (13.4-35.0) 11/15/18 05:36 Graves % (Auto) 11.0 % (0.0-7.3) H 11/15/18 05:36 Eos % (Auto) 4.4 % (0.0-4.3) H 11/15/18 05:36 Baso % (Auto) 0.8 % (0.0-1.8) 11/15/18 05:36 Lymph # 1.1 K/mm3 (1.2-5.4) L 11/15/18 05:36 Graves # 0.5 K/mm3 (0.0-0.8) 11/15/18 05:36 Eos # 0.2 K/mm3 (0.0-0.4) 11/15/18 05:36 Baso # 0.0 K/mm3 (0.0-0.1) 11/15/18 05:36 Seg Neutrophils % 58.6 % (40.0-70.0) 11/15/18 05:36 Seg Neutrophils # 2.5 K/mm3 (1.8-7.7) 11/15/18 05:36 Sodium 137 mmol/L (137-145) 11/15/18 05:36 Potassium 4.2 mmol/L (3.6-5.0) D 11/15/18 05:36 Chloride 97.4 mmol/L (98-107) L 11/15/18 05:36 Carbon Dioxide 24 mmol/L (22-30) D 11/15/18 05:36 Anion Gap 20 mmol/L 11/15/18 05:36 BUN 40 mg/dL (7-17) H 11/15/18 05:36 Creatinine 5.3 mg/dL (0.7-1.2) H 11/15/18 05:36 Estimated GFR 11 ml/min 11/15/18 05:36 BUN/Creatinine Ratio 8 % 11/15/18 05:36 Glucose 86 mg/dL (65-100) 11/15/18 05:36 POC Glucose 78 (70-105) 11/15/18 07:42 Calcium 8.0 mg/dL (8.4-10.2) L 11/15/18 05:36 Phosphorus 5.40 mg/dL (2.5-4.5) H 11/15/18 05:36 Total Bilirubin 0.30 mg/dL (0.1-1.2) 11/15/18 05:36 Direct Bilirubin < 0.2 mg/dL (0-0.2) 11/13/18 20:06 Indirect Bilirubin 0.1 mg/dL 11/13/18 20:06 AST 8 units/L (5-40) 11/15/18 05:36 ALT < 5 units/L (7-56) L 11/15/18 05:36 Alkaline Phosphatase 69 units/L (35-129) 11/15/18 05:36 Total Protein 7.3 g/dL (6.3-8.2) 11/15/18 05:36 Albumin 3.6 g/dL (3.9-5) L 11/15/18 05:36 Albumin/Globulin Ratio 1.0 % 11/15/18 05:36 Lipase 13 units/L (13-60) 11/13/18 20:06 Active Medications - Current Medications Current Medications: Generic Name Dose Route Start Last Admin Trade Name Freq PRN Reason Stop Dose Admin Acetaminophen 650 mg 11/14/18 11:27 Tylenol PO Q4H PRN Pain MILD(1-3)/Fever >100.5/CHAVES Albumin Human 12.5 gm 11/14/18 11:53 Alburx 25% (Albumin) IV ELANA PRN Hypotension Amitriptyline HCl 10 mg 11/14/18 13:00 11/15/18 09:51 Elavil PO 10 mg BID TRUDI Administration Apixaban 2.5 mg 11/14/18 10:00 11/15/18 09:51 Eliquis PO 2.5 mg Q12HR TRUDI Administration Protocol Dextrose 50 ml 11/14/18 01:36 11/15/18 06:52 D50w (25gm) Syringe IV 50 ml PRN PRN Administration Hypoglycemia Hydralazine HCl 10 mg 11/14/18 01:42 11/14/18 06:28 Apresoline IV 10 mg Q6H PRN Administration Hypertension Hydralazine HCl 50 mg 11/14/18 13:00 11/15/18 09:50 Apresoline PO 50 mg BID TRUDI Administration Sodium Chloride 100 mls @ 999 mls/hr 11/14/18 11:53 Nacl 0.9% IV ELANA PRN Hypotension Insulin Human Regular 0 units 11/14/18 07:30 11/15/18 08:05 Humulin R SUB-Q Not Given ACHS [facility] Protocol Labetalol HCl 300 mg 11/14/18 14:00 11/15/18 08:05 Normodyne PO 300 mg TID TRUDI Administration Losartan Potassium 50 mg 11/14/18 13:00 11/15/18 09:50 Cozaar PO 50 mg QDAY TRUDI Administration Ondansetron HCl 4 mg 11/14/18 01:36 Zofran IV Q8H PRN Nausea And Vomiting Ondansetron HCl 4 mg 11/14/18 18:00 11/15/18 05:21 Zofran Odt PO 4 mg Q6HR TRUDI Administration Oxycodone/Acetaminophen 1 tab 11/14/18 11:27 11/14/18 17:54 Percocet 5/325 PO 1 tab Q6H PRN Administration Pain, Moderate (4-6) Pantoprazole Sodium 40 mg 11/14/18 13:00 11/15/18 09:51 Protonix PO 40 mg DAILY TRUDI Administration Promethazine HCl 25 mg 11/14/18 11:27 Phenergan LA Q6H PRN Nausea And Vomiting Sodium Chloride 10 ml 11/14/18 10:00 11/15/18 09:51 Sodium Chloride Flush Syringe 10 Ml IV 10 ml BID TRUDI Administration Sodium Chloride 10 ml 11/14/18 01:36 Sodium Chloride Flush Syringe 10 Ml IV PRN PRN LINE FLUSH Nutrition/Malnutrition Assess - Dietary Evaluation Nutrition/Malnutrition Findings: Nutrition Notes Start: 11/14/18 11:48 Freq: Status: Active Protocol: Document 11/14/18 11:48 TW (Rec: 11/14/18 12:06 TW [id number]) Co-Sign 11/14/18 11:48 LP Nutrition Notes 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 Pt eating at time of visit, noted 75% of breakfast was eaten. Pt admits to N/V related to gastroparesis. Pt admits to a fish allergiy. Pt denies chewing/swallowing difficulty. Pt denies need for diet modification but requests substituting eggs for sausage on breakfast tray. Burn Absent Trauma Absent Nutrition Intervention Change Diet Order: Change to Renal diet Anticipated Discharge Needs: Renal diet Revisit per MD consult or patient Sign Off request:
--- NOTE | 2018-11-15 12:29 | Consultation ---
History of Present Illness Consult date: 11/15/18 Reason for consult: other (Left ankle ulcer) - History of present illness History of present illness: 37 yo diabetic female with left ankle and left foot ulcerations. She is being discharged today. Past History Past Medical History: diabetes, dialysis, hypertension, hyperlipidemia, PVD, re nal failure Past Surgical History: Other (Left thigh femoral perm-catheter. Multiple AVG surgeries) Social history: no significant social history Family history: no significant family history Medications and Allergies Allergies Allergy/AdvReac Type Severity Reaction Status Date / Time metformin Allergy Hives Verified 11/09/18 16:37 metoclopramide HCl Allergy Hives Verified 11/09/18 16:37 [From Reglan] prochlorperazine Allergy Hives Verified 11/09/18 16:37 [From Compazine] prochlorperazine edisylate Allergy Hives Verified 11/09/18 16:37 [From Compazine] prochlorperazine maleate Allergy Hives Verified 11/09/18 16:37 [From Compazine] haloperidol [From Haldol] AdvReac Unknown Verified 11/09/18 16:37 fish Allergy Severe Swelling Uncoded 11/09/18 16:35 to throat Home Medications Medication Instructions Recorded Confirmed Last Taken Type Apixaban [Eliquis] 2.5 mg PO Q12HR #60 tablet 08/04/18 11/14/18 11/13/18 Rx Labetalol [Normodyne TAB] 300 mg PO TID #90 tablet 08/04/18 11/14/18 11/13/18 Rx Amitriptyline [Elavil] 10 mg PO BID 10/11/18 11/14/18 11/13/18 History Acetaminophen [Acetaminophen TAB] 650 mg PO Q4H PRN #15 tablet 10/17/18 11/14/18 11/13/18 Rx Lispro Insulin [Humalog] 0 unit SUB-Q ACHS units 10/17/18 11/14/18 11/13/18 Rx Losartan [Cozaar] 50 mg PO QDAY #30 tablet 10/17/18 11/14/18 11/13/18 Rx Pantoprazole [Protonix TAB] 40 mg PO DAILY #30 tablet 10/17/18 11/14/18 11/13/18 Rx Promethazine [Phenergan SUPPOS] 25 mg SC Q6H PRN #15 supp.rect 10/17/18 11/14/18 11/13/18 Rx Ondansetron [Zofran Odt] 4 mg PO Q8HR PRN #30 tab.rapdis 11/14/18 Unknown Rx hydrALAZINE [Apresoline TAB] 50 mg PO BID 30 Days tablet 11/14/18 Unknown Rx oxyCODONE /ACETAMINOPHEN [Percocet 1 tab PO Q6H PRN #20 tablet 11/14/18 Unknown Rx 5/325 mg] Active Meds: Active Medications Acetaminophen (Tylenol) 650 mg PO Q4H PRN PRN Reason: Pain MILD(1-3)/Fever >100.5/CHAVES Albumin Human (Alburx 25% (Albumin)) 12.5 gm IV ELANA PRN PRN Reason: Hypotension Amitriptyline HCl (Elavil) 10 mg PO BID [facility] Last Admin: 11/15/18 09:51 Dose: 10 mg Documented by: Apixaban (Eliquis) 2.5 mg PO Q12HR [facility]; Protocol Last Admin: 11/15/18 09:51 Dose: 2.5 mg Documented by: Dextrose (D50w (25gm) Syringe) 50 ml IV PRN PRN PRN Reason: Hypoglycemia Last Admin: 11/15/18 06:52 Dose: 50 ml Documented by: Hydralazine HCl (Apresoline) 10 mg IV Q6H PRN PRN Reason: Hypertension Last Admin: 11/14/18 06:28 Dose: 10 mg Documented by: Hydralazine HCl (Apresoline) 50 mg PO BID [facility] Last Admin: 11/15/18 09:50 Dose: 50 mg Documented by: Sodium Chloride (Nacl 0.9%) 100 mls @ 999 mls/hr IV ELANA PRN PRN Reason: Hypotension Insulin Human Regular (Humulin R) 0 units SUB-Q ACHS [facility]; Protocol Last Admin: 11/15/18 11:32 Dose: Not Given Documented by: Labetalol HCl (Normodyne) 300 mg PO TID [facility] Last Admin: 11/15/18 08:05 Dose: 300 mg Documented by: Losartan Potassium (Cozaar) 50 mg PO QDAY [facility] Last Admin: 11/15/18 09:50 Dose: 50 mg Documented by: Ondansetron HCl (Zofran) 4 mg IV Q8H PRN PRN Reason: Nausea And Vomiting Ondansetron HCl (Zofran Odt) 4 mg PO Q6HR [facility] Last Admin: 11/15/18 12:23 Dose: Not Given Documented by: Oxycodone/Acetaminophen (Percocet 5/325) 1 tab PO Q6H PRN PRN Reason: Pain, Moderate (4-6) Last Admin: 11/14/18 17:54 Dose: 1 tab Documented by: Pantoprazole Sodium (Protonix) 40 mg PO DAILY [facility] Last Admin: 11/15/18 09:51 Dose: 40 mg Documented by: Promethazine HCl (Phenergan) 25 mg SC Q6H PRN PRN Reason: Nausea And Vomiting Sodium Chloride (Sodium Chloride Flush Syringe 10 Ml) 10 ml IV BID [facility] Last Admin: 11/15/18 09:51 Dose: 10 ml Documented by: Sodium Chloride (Sodium Chloride Flush Syringe 10 Ml) 10 ml IV PRN PRN PRN Reason: LINE FLUSH Review of Systems All systems: negative (none) Exam Vital Signs Temp Pulse Resp BP Pulse Ox 98.4 F 96 H 18 193/107 100 11/13/18 14:28 11/13/18 14:28 11/13/18 14:28 11/13/18 14:28 11/13/18 14:28 - General physical appearance Positive: well developed, well nourished, no distress - Eyes Positive: PERRL, normal occular movement - ENT Positive: normal pinna, normal nares, normal mucosa, no hearing loss, no congestion - Neck Positive: no masses, no bruits, trachea midline, no venous distension - Respiratory Positive: normal expansion, normal respiratory effort, clear to auscultation - Cardiovascular Rhythm: regular Heart Sounds: Present: S1 & S2. Absent: rub, click - Extremities Extremities: no ischemia, pulses symmetrical, No edema - Breasts Breasts: deferred - Abdomen Abdomen: Present: soft, bowel sounds normal. Absent: tender, distended Hernia: none - Genitourinary Female Genitourinary: deferred - Integumentary other (There is a 3 X 4.5 X 0.5 cm ulceration over her left posterior ankle. There is also a 1.5 X 1.5 X 0.5 cm ulceration over the plantar left 5th metatarsal head. Left DP is 2+.) - Neurologic Neurologic: alert and oriented to time, place and person, motor strength and sensation are grossly intact - Musculoskeletal normal gait, normal posture - Psychiatric Psychiatric: appropriate mood/affect, intact judgment & insight Results - Labs 11/15/18 05:36 11/15/18 05:36 Abnormal lab results 11/14/18 11/15/18 11/15/18 Range/Units 21:19 05:36 05:36 WBC 4.3 L (4.5-11.0) K/mm3 RBC 3.54 L (3.65-5.03) M/mm3 RDW 18.2 H (13.2-15.2) % Braxton % (Auto) 11.0 H (0.0-7.3) % Eos % (Auto) 4.4 H (0.0-4.3) % Lymph # 1.1 L (1.2-5.4) K/mm3 Chloride 97.4 L (98-107) mmol/L BUN 40 H (7-17) mg/dL Creatinine 5.3 H (0.7-1.2) mg/dL POC Glucose 150 H (70-105) Calcium 8.0 L (8.4-10.2) mg/dL Phosphorus 5.40 H (2.5-4.5) mg/dL ALT < 5 L (7-56) units/L Albumin 3.6 L (3.9-5) g/dL 11/15/18 Range/Units 06:44 WBC (4.5-11.0) K/mm3 RBC (3.65-5.03) M/mm3 RDW (13.2-15.2) % Braxton % (Auto) (0.0-7.3) % Eos % (Auto) (0.0-4.3) % Lymph # (1.2-5.4) K/mm3 Chloride (98-107) mmol/L BUN (7-17) mg/dL Creatinine (0.7-1.2) mg/dL POC Glucose 57 L (70-105) Calcium (8.4-10.2) mg/dL Phosphorus (2.5-4.5) mg/dL ALT (7-56) units/L Albumin (3.9-5) g/dL Diabetes panel 11/15/18 Range/Units 05:36 Sodium 137 (137-145) mmol/L Potassium 4.2 D (3.6-5.0) mmol/L Chloride 97.4 L (98-107) mmol/L Carbon Dioxide 24 D (22-30) mmol/L BUN 40 H (7-17) mg/dL Creatinine 5.3 H (0.7-1.2) mg/dL Glucose 86 (65-100) mg/dL Calcium 8.0 L (8.4-10.2) mg/dL AST 8 (5-40) units/L ALT < 5 L (7-56) units/L Alkaline Phosphatase 69 (35-129) units/L Total Protein 7.3 (6.3-8.2) g/dL Albumin 3.6 L (3.9-5) g/dL Calcium panel 11/15/18 Range/Units 05:36 Calcium 8.0 L (8.4-10.2) mg/dL Phosphorus 5.40 H (2.5-4.5) mg/dL Albumin 3.6 L (3.9-5) g/dL Pituitary panel 11/15/18 Range/Units 05:36 Sodium 137 (137-145) mmol/L Potassium 4.2 D (3.6-5.0) mmol/L Chloride 97.4 L (98-107) mmol/L Carbon Dioxide 24 D (22-30) mmol/L BUN 40 H (7-17) mg/dL Creatinine 5.3 H (0.7-1.2) mg/dL Glucose 86 (65-100) mg/dL Calcium 8.0 L (8.4-10.2) mg/dL Adrenal panel 11/15/18 Range/Units 05:36 Sodium 137 (137-145) mmol/L Potassium 4.2 D (3.6-5.0) mmol/L Chloride 97.4 L (98-107) mmol/L Carbon Dioxide 24 D (22-30) mmol/L BUN 40 H (7-17) mg/dL Creatinine 5.3 H (0.7-1.2) mg/dL Glucose 86 (65-100) mg/dL Calcium 8.0 L (8.4-10.2) mg/dL Total Bilirubin 0.30 (0.1-1.2) mg/dL AST 8 (5-40) units/L ALT < 5 L (7-56) units/L Alkaline Phosphatase 69 (35-129) units/L Total Protein 7.3 (6.3-8.2) g/dL Albumin 3.6 L (3.9-5) g/dL - Imaging Additional studies: A1c on 10/09/18 was 5.3. Venous dopplers of the LE's on 11/13/18 were negative for DVT. Assessment and Plan - Patient Problems (1) Diabetic foot ulcer Current Visit: No Status: Acute Qualifiers: Diabetes mellitus type: type 1 Plan to address problem: 1) F/u in Wound clinic 2) Continue strict control of DM 3) Continue Wound Care per the Wound Care nurse.
--- NOTE | 2018-11-15 13:28 | Progress Note ---
Assessment and Plan End Stage Renal Disease: -S/P Hemodialysis yesterday for UF and clearance -Has left groin femoral catheter -Fluid restriction of 1 liter per day -Renal diet -Obtain daily weights -Monitor I/O's -Assess dialysis needs daily -Possible discharge home today Hypertension: -On Hydralazine/Labetalol/Losartan -Adjust regimen as needed Diabetes Mellitus: -On insulin as per primary Diabetic left foot ulcer: -Wound care consult Subjective Date of service: 11/15/18 Principal diagnosis: ESRD Interval history: Patient seen sitting up at edge of bed eating. No family at bedside. Objective - Vital Signs Vital signs: Vital Signs - 12hr 11/15/18 11/15/18 11/15/18 06:45 08:05 09:50 Temperature Pulse Rate 83 82 82 Respiratory Rate Blood Pressure 164/93 163/77 163/77 O2 Sat by Pulse 100 Oximetry 11/15/18 11:44 Temperature 98.7 F Pulse Rate 90 Respiratory 16 Rate Blood Pressure 124/73 O2 Sat by Pulse 98 Oximetry - General Appearance General appearance: well-developed, fatigue EENT: ATNC, PERRL, hearing intact, vision intact Neck: no JVD, supple Respiratory: Present: Decreased Breath Sounds Cardiology: regular, S1S2 Gastrointestinal: normoactive bowel sounds Integumentary: ulcer, other (woud dressing to feet) Neurologic: alert and oriented x3 Musculoskeletal: other (positive edema) - Lab 11/15/18 05:36 11/15/18 05:36 Most recent lab results Calcium 8.0 mg/dL (8.4-10.2) L 11/15/18 05:36 Phosphorus 5.40 mg/dL (2.5-4.5) H 11/15/18 05:36 Medications & Allergies - Medications Allergies/Adverse Reactions: Allergies metformin Allergy (Verified 11/09/18 16:37) Hives metoclopramide HCl [From Reglan] Allergy (Verified 11/09/18 16:37) Hives prochlorperazine [From Compazine] Allergy (Verified 11/09/18 16:37) Hives prochlorperazine edisylate [From Compazine] Allergy (Verified 11/09/18 16:37) Hives prochlorperazine maleate [From Compazine] Allergy (Verified 11/09/18 16:37) Hives haloperidol [From Haldol] Adverse Reaction (Verified 11/09/18 16:37) Unknown PT STATES HER TEETH CHATTERED AND HER "EYES DRIFTED OFF" fish Allergy (Severe, Uncoded 11/09/18 16:35) Swelling to throat Home Medications: Home Medications Medication Instructions Recorded Confirmed Last Taken Type Apixaban [Eliquis] 2.5 mg PO Q12HR #60 tablet 08/04/18 11/14/18 11/13/18 Rx Labetalol [Normodyne TAB] 300 mg PO TID #90 tablet 08/04/18 11/14/18 11/13/18 Rx Amitriptyline [Elavil] 10 mg PO BID 10/11/18 11/14/18 11/13/18 History Acetaminophen [Acetaminophen TAB] 650 mg PO Q4H PRN #15 tablet 10/17/18 11/14/18 11/13/18 Rx Lispro Insulin [Humalog] 0 unit SUB-Q ACHS units 10/17/18 11/14/18 11/13/18 Rx Losartan [Cozaar] 50 mg PO QDAY #30 tablet 10/17/18 11/14/18 11/13/18 Rx Pantoprazole [Protonix TAB] 40 mg PO DAILY #30 tablet 10/17/18 11/14/18 11/13/18 Rx Promethazine [Phenergan SUPPOS] 25 mg DE Q6H PRN #15 supp.rect 10/17/18 11/14/18 11/13/18 Rx Ondansetron [Zofran Odt] 4 mg PO Q8HR PRN #30 tab.rapdis 11/14/18 Unknown Rx hydrALAZINE [Apresoline TAB] 50 mg PO BID 30 Days tablet 11/14/18 Unknown Rx oxyCODONE /ACETAMINOPHEN [Percocet 1 tab PO Q6H PRN #20 tablet 11/14/18 Unknown Rx 5/325 mg] Active Medications: Generic Name Dose Route Start Last Admin Trade Name Freq PRN Reason Stop Dose Admin Acetaminophen 650 mg 11/14/18 11:27 Tylenol PO Q4H PRN Pain MILD(1-3)/Fever >100.5/CHAVES Albumin Human 12.5 gm 11/14/18 11:53 Alburx 25% (Albumin) IV ELANA PRN Hypotension Amitriptyline HCl 10 mg 11/14/18 13:00 11/15/18 09:51 Elavil PO 10 mg BID TRUDI Administration Apixaban 2.5 mg 11/14/18 10:00 11/15/18 09:51 Eliquis PO 2.5 mg Q12HR TRUDI Administration Protocol Dextrose 50 ml 11/14/18 01:36 11/15/18 06:52 D50w (25gm) Syringe IV 50 ml PRN PRN Administration Hypoglycemia Hydralazine HCl 10 mg 11/14/18 01:42 11/14/18 06:28 Apresoline IV 10 mg Q6H PRN Administration Hypertension Hydralazine HCl 50 mg 11/14/18 13:00 11/15/18 09:50 Apresoline PO 50 mg BID TR[facility]I Administration Sodium Chloride 100 mls @ 999 mls/hr 11/14/18 11:53 Nacl 0.9% IV ELANA PRN Hypotension Insulin Human Regular 0 units 11/14/18 07:30 11/15/18 11:32 Humulin R SUB-Q Not Given ACHS [facility] Protocol Labetalol HCl 300 mg 11/14/18 14:00 11/15/18 08:05 Normodyne PO 300 mg TID TRUDI Administration Losartan Potassium 50 mg 11/14/18 13:00 11/15/18 09:50 Cozaar PO 50 mg QDAY [facility] Administration Ondansetron HCl 4 mg 11/14/18 01:36 Zofran IV Q8H PRN Nausea And Vomiting Ondansetron HCl 4 mg 11/14/18 18:00 11/15/18 12:23 Zofran Odt PO Not Given Q6HR [facility]I Oxycodone/Acetaminophen 1 tab 11/14/18 11:27 11/14/18 17:54 Percocet 5/325 PO 1 tab Q6H PRN Administration Pain, Moderate (4-6) Pantoprazole Sodium 40 mg 11/14/18 13:00 11/15/18 09:51 Protonix PO 40 mg DAILY [facility] Administration Promethazine HCl 25 mg 11/14/18 11:27 Phenergan DE Q6H PRN Nausea And Vomiting Sodium Chloride 10 ml 11/14/18 10:00 11/15/18 09:51 Sodium Chloride Flush Syringe 10 Ml IV 10 ml BID [facility] Administration Sodium Chloride 10 ml 11/14/18 01:36 Sodium Chloride Flush Syringe 10 Ml IV PRN PRN LINE FLUSH
[2018-11-15] MEDS: PERCOCET 5/325 PO PRN (15:54)
[2018-11-15] MEDS ORDERED: DILAUDID IV PRN (20:11)
[2018-11-15] MEDS ORDERED: DILAUDID IV ONE (20:11)
[2018-11-16] MEDS: ZOFRAN ODT PO SCH ×3 (00:54→12:00)
[2018-11-16] MEDS: HumuLIN R SUB-Q SCH ×3 (07:30→20:06)
--- NOTE | 2018-11-16 09:14 | Progress Note ---
Assessment and Plan End Stage Renal Disease: -HD today for clearance and volume removal -Has left groin femoral catheter -Fluid restriction of 1 liter per day -Renal diet -Obtain daily weights -Monitor I/O's -Assess dialysis needs daily -Possible discharge home today Hypertension: -On Hydralazine/Labetalol/Losartan -Adjust regimen as needed Diabetes Mellitus: -On insulin as per primary Diabetic left foot ulcer: -Wound care consult Subjective Date of service: 11/16/18 Principal diagnosis: ESRD Interval history: having some itching after dialysis Objective - Vital Signs Vital signs: Vital Signs - 12hr 11/15/18 11/16/18 23:14 05:46 Temperature 98.4 F Pulse Rate 86 89 Respiratory 18 20 Rate Blood Pressure 134/58 167/89 O2 Sat by Pulse 99 95 Oximetry - General Appearance General appearance: well-developed, well-nourished, appears stated age EENT: ATNC, PERRL, mucous membranes moist Neck: no JVD, no carotid bruit Respiratory: Present: Clear to Ascultation. Absent: Rales, Ronchi Cardiology: regular, S1S2 Gastrointestinal: normoactive bowel sounds, no tenderness, no distended Integumentary: no rash, warm and dry Neurologic: no focal deficit, no asterixis, alert and oriented x3 Musculoskeletal: deferred Psychiatric: mood/affect appropriate, cooperative - Lab 11/15/18 05:36 11/15/18 05:36 Most recent lab results Calcium 8.0 mg/dL (8.4-10.2) L 11/15/18 05:36 Phosphorus 5.40 mg/dL (2.5-4.5) H 11/15/18 05:36 Medications & Allergies - Medications Allergies/Adverse Reactions: Allergies metformin Allergy (Verified 11/09/18 16:37) Hives metoclopramide HCl [From Reglan] Allergy (Verified 11/09/18 16:37) Hives prochlorperazine [From Compazine] Allergy (Verified 11/09/18 16:37) Hives prochlorperazine edisylate [From Compazine] Allergy (Verified 11/09/18 16:37) Hives prochlorperazine maleate [From Compazine] Allergy (Verified 11/09/18 16:37) Hives haloperidol [From Haldol] Adverse Reaction (Verified 11/09/18 16:37) Unknown PT STATES HER TEETH CHATTERED AND HER "EYES DRIFTED OFF" fish Allergy (Severe, Uncoded 11/09/18 16:35) Swelling to throat Home Medications: Home Medications Medication Instructions Recorded Confirmed Last Taken Type Apixaban [Eliquis] 2.5 mg PO Q12HR #60 tablet 08/04/18 11/14/18 11/13/18 Rx Labetalol [Normodyne TAB] 300 mg PO TID #90 tablet 08/04/18 11/14/18 11/13/18 Rx Amitriptyline [Elavil] 10 mg PO BID 10/11/18 11/14/18 11/13/18 History Acetaminophen [Acetaminophen TAB] 650 mg PO Q4H PRN #15 tablet 10/17/18 11/14/18 11/13/18 Rx Lispro Insulin [Humalog] 0 unit SUB-Q ACHS units 10/17/18 11/14/18 11/13/18 Rx Losartan [Cozaar] 50 mg PO QDAY #30 tablet 10/17/18 11/14/18 11/13/18 Rx Pantoprazole [Protonix TAB] 40 mg PO DAILY #30 tablet 10/17/18 11/14/18 11/13/18 Rx Promethazine [Phenergan SUPPOS] 25 mg [place] Q6H PRN #15 supp.rect 10/17/18 11/14/18 11/13/18 Rx Ondansetron [Zofran Odt] 4 mg PO Q8HR PRN #30 tab.rapdis 11/14/18 Unknown Rx hydrALAZINE [Apresoline TAB] 50 mg PO BID 30 Days tablet 11/14/18 Unknown Rx oxyCODONE /ACETAMINOPHEN [Percocet 1 tab PO Q6H PRN #20 tablet 11/14/18 Unknown Rx 5/325 mg] Active Medications: Generic Name Dose Route Start Last Admin Trade Name Freq PRN Reason Stop Dose Admin Acetaminophen 650 mg 11/14/18 11:27 Tylenol PO Q4H PRN Pain MILD(1-3)/Fever >100.5/CHAVES Albumin Human 12.5 gm 11/14/18 11:53 Alburx 25% (Albumin) IV ELANA PRN Hypotension Amitriptyline HCl 10 mg 11/14/18 13:00 11/15/18 21:10 Elavil PO 10 mg BID TRUDI Administration Apixaban 2.5 mg 11/14/18 10:00 11/15/18 21:09 Eliquis PO 2.5 mg Q12HR TRUDI Administration Protocol Dextrose 50 ml 11/14/18 01:36 11/15/18 06:52 D50w (25gm) Syringe IV 50 ml PRN PRN Administration Hypoglycemia Hydralazine HCl 10 mg 11/14/18 01:42 11/14/18 06:28 Apresoline IV 10 mg Q6H PRN Administration Hypertension Hydralazine HCl 50 mg 11/14/18 13:00 11/15/18 21:10 Apresoline PO Not Given BID TR[facility]I Sodium Chloride 100 mls @ 999 mls/hr 11/14/18 11:53 Nacl 0.9% IV ELANA PRN Hypotension Insulin Human Regular 0 units 11/14/18 07:30 11/15/18 23:17 Humulin R SUB-Q Not Given ACHS [facility] Protocol Labetalol HCl 300 mg 11/14/18 14:00 11/15/18 21:10 Normodyne PO Not Given TID [facility] Losartan Potassium 50 mg 11/14/18 13:00 11/15/18 09:50 Cozaar PO 50 mg QDAY TR[facility]I Administration Ondansetron HCl 4 mg 11/14/18 01:36 Zofran IV Q8H PRN Nausea And Vomiting Ondansetron HCl 4 mg 11/14/18 18:00 11/16/18 06:44 Zofran Odt PO Not Given Q6HR [facility]I Oxycodone/Acetaminophen 1 tab 11/14/18 11:27 11/15/18 15:54 Percocet 5/325 PO 1 tab Q6H PRN Administration Pain, Moderate (4-6) Pantoprazole Sodium 40 mg 11/14/18 13:00 11/15/18 09:51 Protonix PO 40 mg DAILY [facility] Administration Promethazine HCl 25 mg 11/14/18 11:27 Phenergan DE Q6H PRN Nausea And Vomiting Sodium Chloride 10 ml 11/14/18 10:00 11/15/18 21:11 Sodium Chloride Flush Syringe 10 Ml IV 10 ml BID [facility]I Administration Sodium Chloride 10 ml 11/14/18 01:36 Sodium Chloride Flush Syringe 10 Ml IV PRN PRN LINE FLUSH
[2018-11-16] MEDS: NORMODYNE PO SCH ×2 (09:25→14:00)
[2018-11-16] MEDS ORDERED: MORPHINE IV ONE ×2 (09:32→10:00)
[2018-11-16] MEDS: COZAAR PO SCH (10:00)
[2018-11-16] MEDS: APRESOLINE PO SCH (10:00)
[2018-11-16] MEDS: ELAVIL PO SCH (10:00)
[2018-11-16] MEDS: PROTONIX PO SCH (10:00)
[2018-11-16] MEDS: ELIQUIS PO SCH (10:00)
[2018-11-16] MEDS ORDERED: BENADRYL IV ONE (11:03)
[2018-11-16] MEDS ORDERED: NACL 0.9 (PRIMING MACHINE ONLY DIALYSIS) MC ONE (11:58)
[2018-11-16 17:46] VITALS: BP 170/70
[2018-11-16] MEDS ORDERED: FLUSH HEPARIN IV ONE (17:47)
[2018-11-16] MEDS ORDERED: TRIPLE ANTIBIOTIC TP ONE (17:48)
[2018-11-16] MEDS: APRESOLINE IV PRN (18:02)
--- NOTE | 2018-11-16 18:15 | Progress Note ---
Assessment and Plan 37-year-old woman with a history with hypertension, diabetes complicated by gastroparesis, status post gastric pacemaker, end-stage renal disease on dialysis, CVA, hyperlipidemia, chronic pain comes to the emergency room with complaints of unable to get her dialysis done today because her blood pressure was so high despite given 0.3 mg of clonidine . Blood pressure responded to antihypertensive in the emergency room, complain of nausea vomiting that started today Hypertensive urgency Acute flare of gastroparesis esrd DM hld diabetic R foot ulcer Pain medication seeking behavior Nonadherence to medications Plan -optimize BP meds -HD per nephrology -optimize insulins -wound care for right foot ulcer -fup venous duplex scan -Patient was counseled greater than 16 minutes on lifestyle modification and cessation of prescription drug use given pain medication seeking behavior -dvt ppx- lovenox Subjective Date of service: 11/16/18 Principal diagnosis: ESRD, hypertension, gastroparesis, T2DM Interval history: Laying quietly in bed. No new complaints. Objective - Exam Narrative Exam: Constitutional: Well-nourished well-developed. In no distress Head: Normocephalic atraumatic Eyes: Pupils are equal round and reactive to light Nose: No enlarged turbinates, no septal deviation. Mouth: Moist mucous membranes. Neck: Supple no thyromegaly. No bruit. No JVD Heart: Regular rate and rhythm, S1-S2 normal. No rubs murmurs or gallop Lungs: Clear to auscultation bilaterally. no rales or rhonchi Abdomen: Soft, nontender. Bowel sound are present. Extremities: No edema, no cyanosis, no clubbing. Neuro: Alert oriented Oriented x3. No focal sensory or motor deficit. Skin: No rashes or hyperpigmented spots Musculoskeletal system: No joint pain or swelling Hematological: No petechia or subcutanous hemorrhages. Immunological: No multiple septic spots on the skin Lymphatic: No generalized lymphadenopathy Psychiatry: Euthymic. Calm. - Constitutional Vitals: Vital Signs - 12hr 11/16/18 11/16/18 11/16/18 10:10 10:45 11:15 Temperature 99.0 F Pulse Rate 88 98 H 92 H Respiratory 16 Rate Blood Pressure 114/87 122/66 146/76 O2 Sat by Pulse Oximetry 11/16/18 11/16/18 11/16/18 11:30 12:00 12:15 Temperature Pulse Rate 89 90 88 Respiratory Rate Blood Pressure 127/54 149/76 112/42 O2 Sat by Pulse Oximetry 11/16/18 11/16/18 11/16/18 12:30 12:45 13:00 Temperature Pulse Rate 89 88 89 Respiratory Rate Blood Pressure 106/46 107/55 85/40 O2 Sat by Pulse Oximetry 11/16/18 11/16/18 11/16/18 13:15 13:30 13:45 Temperature Pulse Rate 90 84 84 Respiratory Rate Blood Pressure 75/31 96/53 100/52 O2 Sat by Pulse Oximetry 11/16/18 11/16/18 11/16/18 14:00 17:44 18:02 Temperature 98.4 F 98.5 F Pulse Rate 83 99 H Respiratory 16 20 Rate Blood Pressure 117/54 170/70 170/70 O2 Sat by Pulse 96 Oximetry General appearance: Present: no acute distress, well-nourished - EENT Eyes: PERRL, EOM intact ENT: hearing intact, clear oral mucosa Ears: bilateral: normal - Neck Neck: supple, normal ROM - Respiratory Respiratory effort: normal Respiratory: bilateral: CTA - Breasts Breasts: normal - Cardiovascular Rhythm: regular Heart Sounds: Present: S1 & S2. Absent: gallop, rub Extremities: pulses intact, No edema, normal color, Full ROM - Gastrointestinal General gastrointestinal: Present: soft, non-tender, non-distended, normal bowel sounds - Genitourinary Female genitourinary: normal - Integumentary Integumentary: clear, warm, dry - Musculoskeletal Musculoskeletal: 1, strength equal bilaterally - Neurologic Neurologic: moves all extremities - Psychiatric Psychiatric: memory intact, appropriate mood/affect, intact judgment & insight - Labs CBC & Chem 7: 11/15/18 05:36 11/15/18 05:36 Labs: Abnormal lab results 11/15/18 11/16/18 Range/Units 23:20 17:47 POC Glucose 114 H 167 H (70-105)
== END 2018-11-16 20:22 | disposition home health service (06) | DRG 73 ==
LOC: ED 14:07 → 3A 21:44
PROVIDERS: ADMIT Internal Medicine; ATTEND Family Medicine
PROC: 5A1D70Z Performance of Urinary Filtration, Intermittent, Less than 6 Hours Per Day (ICD-10-PCS; principal; 2018-11-14)
PROC: 5A1D70Z Performance of Urinary Filtration, Intermittent, Less than 6 Hours Per Day (ICD-10-PCS; 2018-11-16)
DX: E10.43 Type 1 diabetes mellitus with diabetic autonomic (poly)neuropathy (principal); N18.6 End stage renal disease; I82.221 Chronic embolism and thrombosis of inferior vena cava; I69.354 Hemiplegia and hemiparesis following cerebral infarction affecting left non-dominant side; I12.0 Hypertensive chronic kidney disease with stage 5 chronic kidney disease or end stage renal disease; I16.0 Hypertensive urgency; K31.84 Gastroparesis; L97.529 Non-pressure chronic ulcer of other part of left foot with unspecified severity; E78.5 Hyperlipidemia, unspecified; E10.621 Type 1 diabetes mellitus with foot ulcer; G89.4 Chronic pain syndrome; E10.22 Type 1 diabetes mellitus with diabetic chronic kidney disease; Z99.2 Dependence on renal dialysis; Z90.49 Acquired absence of other specified parts of digestive tract; Z95.828 Presence of other vascular implants and grafts; Z82.49 Family history of ischemic heart disease and other diseases of the circulatory system; Z88.8 Allergy status to other drugs, medicaments and biological substances; Z91.013 Allergy to seafood; Z79.01 Long term (current) use of anticoagulants; Z79.899 Other long term (current) drug therapy; Z79.4 Long term (current) use of insulin; Z91.14 Patient's other noncompliance with medication regimen; Z71.89 Other specified counseling
CPT/HCPCS: 36415; 74022; 80048; 80053; 80076; 82962; 83690; 84100; 85025; 87116; 94760; 96374; 96375; 96376; G0378; A6250; J0360; J1170; J1200; J1642; J1815; J2270; J2405; J2765; J7030; Q0162

== ENCOUNTER 2018-11-22 17:18 | Emergency (ER) | payer MEDICARE ==
--- NOTE | 2018-11-22 17:51 | Emergency Department Report ---
ED General Adult HPI - General Chief complaint: Wound/Laceration Stated complaint: SORE ON FOOT LT Time Seen by Provider: 11/22/18 17:42 Source: patient, EMS (ems notes not available at time of chart dictation), RN notes reviewed, old records reviewed Mode of arrival: Ambulatory Limitations: Physical Limitation - History of Present Illness Initial comments: This is an 37-year-old female. I have evaluated this patient in the past. Her past medical history includes type 2 diabetes, gastroparesis with gastric pacemaker, hypertension, stroke 12, left-sided weakness, end-stage renal disease, on dialysis, Monday, , Monday. 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 Ramos. Patient has a chronic left-sided heel wound. Patient was recently admitted to this hospital, and evaluated by medical review specialist, Dr. Rosalva Abdul, who recommended follow-up in the wound clinic, strict control of diabetes, and wound care as per the wound care nurse. She was apparently supposed to follow-up in the wound care clinic yesterday. She had recently negative DVT studies. She is sent to the emergency room by her wound care nurse for questionable infected left posterior heel wound. The patient complains of chronic pruritus and is requesting IV Benadryl. This is consistent with prior complaints. The patient mentions no other complaints. -: unknown Location: left, lower extremity Radiation: non-radiation Consistency: constant Improves with: none Worsens with: none - Related Data Home Medications Medication Instructions Recorded Confirmed Last Taken Amitriptyline [Elavil] 10 mg PO BID 10/11/18 11/14/18 11/13/18 Previous Rx's Medication Instructions Recorded Last Taken Type Apixaban [Eliquis] 2.5 mg PO Q12HR #60 tablet 08/04/18 11/13/18 Rx Labetalol [Normodyne TAB] 300 mg PO TID #90 tablet 08/04/18 11/13/18 Rx Acetaminophen [Acetaminophen TAB] 650 mg PO Q4H PRN #15 tablet 10/17/18 11/13/18 Rx Lispro Insulin [Humalog] 0 unit SUB-Q ACHS units 10/17/18 11/13/18 Rx Losartan [Cozaar] 50 mg PO QDAY #30 tablet 10/17/18 11/13/18 Rx Pantoprazole [Protonix TAB] 40 mg PO DAILY #30 tablet 10/17/18 11/13/18 Rx Promethazine [Phenergan SUPPOS] 25 mg IN Q6H PRN #15 supp.rect 10/17/18 11/13/18 Rx Ondansetron [Zofran Odt] 4 mg PO Q8HR PRN #30 tab.rapdis 11/14/18 Unknown Rx hydrALAZINE [Apresoline TAB] 50 mg PO BID 30 Days tablet 11/14/18 Unknown Rx oxyCODONE /ACETAMINOPHEN [Percocet 1 tab PO Q6H PRN #20 tablet 11/14/18 Unknown Rx 5/325 mg] Allergies Allergy/AdvReac Type Severity Reaction Status Date / Time metformin Allergy Hives Verified 11/09/18 16:37 metoclopramide HCl Allergy Hives Verified 11/09/18 16:37 [From Reglan] prochlorperazine Allergy Hives Verified 11/09/18 16:37 [From Compazine] prochlorperazine edisylate Allergy Hives Verified 11/09/18 16:37 [From Compazine] prochlorperazine maleate Allergy Hives Verified 11/09/18 16:37 [From Compazine] haloperidol [From Haldol] AdvReac Unknown Verified 11/09/18 16:37 fish Allergy Severe Swelling Uncoded 11/09/18 16:35 to throat ED Review of Systems ROS: Stated complaint: SORE ON FOOT LT Other details as noted in HPI Constitutional: denies: fever Cardiovascular: denies: chest pain Gastrointestinal: denies: abdominal pain Genitourinary: denies: dysuria Skin: lesions Neurological: weakness (chronic left-sided weakness) ED Past Medical Hx - Past Medical History Previous Medical History?: Yes Hx Hypertension: Yes Hx CVA: Yes (multiple- L sided deficits, 12 CVA) Hx Heart Attack/AMI: No Hx Congestive Heart Failure: No Hx Diabetes: Yes Hx Deep Vein Thrombosis: No Hx Pulmonary Embolism: No Hx GERD: No Hx Liver Disease: No Hx Renal Disease: Yes Hx Sickle Cell Disease: No Hx Arthritis: No Hx Headaches / Migraines: No Hx Seizures: No Hx Kidney Stones: No Hx Psychiatric Treatment: No Hx Asthma: No Hx COPD: No Hx Tuberculosis: No Hx Dementia: No Hx HIV: No Additional medical history: anemia - Surgical History Past Surgical History?: Yes Hx Coronary Stent: No Hx Open Heart Surgery: No Hx Pacemaker: No Hx Internal Defibrillator: No Hx Cholecystectomy: Yes Hx Appendectomy: No Hx Breast Surgery: No Additional Surgical History: catheter placement for Hemo),bilayeral eye sugery(cataract), av fistula, gastric pacemaker for gastroparesis - Social History Smoking Status: Never Smoker Substance Use Type: None - Medications Home Medications: Home Medications Medication Instructions Recorded Confirmed Last Taken Type Apixaban [Eliquis] 2.5 mg PO Q12HR #60 tablet 08/04/18 11/14/18 11/13/18 Rx Labetalol [Normodyne TAB] 300 mg PO TID #90 tablet 08/04/18 11/14/18 11/13/18 Rx Amitriptyline [Elavil] 10 mg PO BID 10/11/18 11/14/18 11/13/18 History Acetaminophen [Acetaminophen TAB] 650 mg PO Q4H PRN #15 tablet 10/17/18 11/14/18 11/13/18 Rx Lispro Insulin [Humalog] 0 unit SUB-Q ACHS units 10/17/18 11/14/18 11/13/18 Rx Losartan [Cozaar] 50 mg PO QDAY #30 tablet 10/17/18 11/14/18 11/13/18 Rx Pantoprazole [Protonix TAB] 40 mg PO DAILY #30 tablet 10/17/18 11/14/18 11/13/18 Rx Promethazine [Phenergan SUPPOS] 25 mg IN Q6H PRN #15 supp.rect 10/17/18 11/14/18 11/13/18 Rx Ondansetron [Zofran Odt] 4 mg PO Q8HR PRN #30 tab.rapdis 11/14/18 Unknown Rx hydrALAZINE [Apresoline TAB] 50 mg PO BID 30 Days tablet 11/14/18 Unknown Rx oxyCODONE /ACETAMINOPHEN [Percocet 1 tab PO Q6H PRN #20 tablet 11/14/18 Unknown Rx 5/325 mg] ED Physical Exam - General Limitations: Physical Limitation General appearance: alert, in no apparent distress - Head Head exam: Present: atraumatic, normocephalic - Eye Eye exam: Present: normal appearance, EOMI. Absent: nystagmus - ENT ENT exam: Present: normal exam, normal orophraynx, mucous membranes moist, normal external ear exam - Neck Neck exam: Present: normal inspection, full ROM. Absent: tenderness, meningismus - Respiratory Respiratory exam: Present: normal lung sounds bilaterally. Absent: respiratory distress - Cardiovascular Cardiovascular Exam: Present: regular rate, normal rhythm, normal heart sounds, systolic murmur. Absent: bradycardia, diastolic murmur, rubs, gallop - GI/Abdominal GI/Abdominal exam: Present: soft. Absent: distended, tenderness, guarding, rebound, rigid, pulsatile mass - Extremities Exam Extremities exam: Present: normal inspection, full ROM (patient moving the right arm, right leg without difficulty.), pedal edema, other (2+ pulses noted in the bilateral upper, lower extremities. Left femoral Vas-Cath, permacath noted in the left proximal quadricep, with no redness, pus or streaking. On the left posterior distal Achilles tendon, there is a well-healed wound, with no redness, pus or streaking. The muscular compartments are soft.). Absent: calf tenderness - Back Exam Back exam: Present: normal inspection. Absent: tenderness, CVA tenderness (R), paraspinal tenderness, vertebral tenderness - Neurological Exam Neurological exam: Present: alert, motor sensory deficit (chronic left-sided weakness.) - Psychiatric Psychiatric exam: Present: normal affect, normal mood - Skin Skin exam: Present: warm, dry, intact, normal color. Absent: rash ED Course Vital Signs 11/22/18 17:23 Temperature 98.5 F Pulse Rate 95 H Respiratory 16 Rate Blood Pressure 215/108 O2 Sat by Pulse 98 Oximetry - Reevaluation(s) Reevaluation #1: 11/22/18 18:10 Differential diagnosis, including but not limited to: Chronic left-sided heel wo und, chronic hypertension, chronic hemiparesis Assessment and plan: 37-year-old female sent to the emergency room for a questionable left posterior heel infected wound. The wounds does not have red ness, pus or streaking, it appears to be scabbed over, there is no tenderness, warmth, or crepitus. The patient was also recently evaluated by the wound care team at this hospital during her recent admission. My opinion, the wound does not appear to be infected, does not require emergent intervention at this time. Patient is chronically hypertensive, currently blood pressures in the 180s. Please reference the [employer] clinical policy and hypertension that is asymptomatic. The patient has chronic pruritus and is requesting Benadryl. This is consistent with her prior presentations, in my opinion, based on today's history and physical, and prior evaluations, the patient has not overtly manifested any conditions that would require IV or oral antihistamines. The patient does not appear to have an acute emergent condition at this time. She will need to follow up with her outpatient primary care doctor, rn employee health, and medical review specialist. She reports that she receive dialysis today. She does not have crackles or rales. She reports a full dialysis session today. In addition, during my history and physical, the patient is on her cellular amara ne, and having a full conversation with aortic technologist who is placing her on a residential monitor. The patient is talking about her children and her relatives. She is carrying on a conversation, and in no acute distress, smiling and engaging with ER staff. Reevaluation #2: 11/22/18 19:31 Potassium is reviewed and within normal and acceptable limits. Patient contin ues to remain comfortable, and has full complete conversations with ER staff. Patient is medically suitable to be discharged at this point time to follow-up. ED Medical Decision Making - Lab Data Result diagrams: 11/22/18 18:23 Vital Signs 11/22/18 17:23 Temperature 98.5 F Pulse Rate 95 H Respiratory 16 Rate Blood Pressure 215/108 O2 Sat by Pulse 98 Oximetry Lab Results 11/22/18 Range/Units 18:23 Sodium 137 (137-145) mmol/L Potassium 3.7 (3.6-5.0) mmol/L Chloride 92.8 L (98-107) mmol/L Carbon Dioxide 29 (22-30) mmol/L Anion Gap 19 mmol/L BUN 20 H (7-17) mg/dL Creatinine 3.7 H (0.7-1.2) mg/dL Estimated GFR 17 ml/min BUN/Creatinine Ratio 5 % Glucose 251 H (65-100) mg/dL Calcium 8.9 (8.4-10.2) mg/dL Critical care attestation.: If time is entered above; I have spent that time in minutes in the direct care of this critically ill patient, excluding procedure time. ED Disposition Clinical Impression: Elevated blood pressure reading, End stage renal disease on dialysis, Chronic ulcer of left heel Disposition: [id number] TO HOME OR SELFCARE Is pt being admited?: No Does the pt Need Aspirin: No Condition: Stable Additional Instructions: Continue outpatient medications. Follow up with her primary care doctor within the next month. Follow up with her kidney doctor as scheduled. Follow-up at the wound care clinic, Center within the next 2 weeks. Please remain compliant with blood pressure medications. Long-term complications of hypertension and blood pressure include stroke, heart attack, disability, paralysis, loss of quality of life. Return to the emergency room right away with it, worsens or different symptoms. Continue home wound care as planned. Referrals: ROSALVA ABDUL MD [Staff Physician] - 3-5 Days [facility] [Outside] - 3-5 Days
[2018-11-22 19:05] LABS: Calcium 8.9 mg/dL (8.4-10.2)
[2018-11-22 20:15] VITALS: BP 131/58
== END 2018-11-22 21:21 | disposition home or self-care (01) ==
LOC: ED 17:18
DX: E11.621 Type 2 diabetes mellitus with foot ulcer (principal); L97.429 Non-pressure chronic ulcer of left heel and midfoot with unspecified severity; E11.22 Type 2 diabetes mellitus with diabetic chronic kidney disease; I12.0 Hypertensive chronic kidney disease with stage 5 chronic kidney disease or end stage renal disease; N18.6 End stage renal disease; Z99.2 Dependence on renal dialysis; Z90.49 Acquired absence of other specified parts of digestive tract; Z88.8 Allergy status to other drugs, medicaments and biological substances; Z91.013 Allergy to seafood
CPT/HCPCS: 36415; 80048